=== PATIENT | male | born 1955 ===

== ENCOUNTER 2020-08-28 11:35 | Outpatient (REF) | payer MEDICAID, SELFPAY ==
--- NOTE | 2020-08-28 | XR_ITS ---
EXAMINATION: XR CHEST CLINICAL INFORMATION: COPD. Shortness of breath. Fever. COMPARISON: Chest 08/10/2019 TECHNIQUE: 2 views of the chest were obtained. FINDINGS: The lungs are well-expanded and clear of acute process. The heart size and pulmonary vascularity is normal. There is moderate spondylosis dorsal spine. No lytic process seen. IMPRESSION: Well-expanded lungs without acute process. There is moderate spondylosis lower dorsal and upper lumbar spine.
== END 2020-08-28 11:36 | disposition home or self-care (01) ==
LOC: HO.XRAY 11:35
PROVIDERS: Visit Provider Nurse Practitioner Family
DX: J44.1 Chronic obstructive pulmonary disease with (acute) exacerbation (principal); R06.02 Shortness of breath; R50.9 Fever, unspecified
CPT/HCPCS: 71046

== ENCOUNTER → 2020-08-29 11:09 | Outpatient (BNVA) | payer MEDICAID, SELFPAY | PROVIDERS: PCP Internal Medicine; Referring Provider Internal Medicine; Visit Provider Internal Medicine | DX: Z76.89 Persons encountering health services in other specified circumstances (principal) ==

== ENCOUNTER 2020-09-12 13:00 | Emergency (ER) | payer MEDICAID, SELFPAY ==
--- NOTE | 2020-09-12 14:05 | XR_ITS ---
EXAMINATION: XR CHEST CLINICAL INFORMATION: Cough COMPARISON: Chest radiographs 08/28/2020, 08/10/2019 TECHNIQUE: 2 portable AP views of the chest are obtained. FINDINGS: There is mild coarsening of the bronchiolar markings. There is no lobar or segmental airspace consolidation or definite groundglass opacity. The heart is normal in size. The vascularity is normal. The hilar and mediastinal contours and visualized bony structures are stable. XR/XR chest 1V IMPRESSION: Mild coarsening bronchiolar markings. No airspace consolidation or definite groundglass opacity.
--- NOTE | 2020-09-12 14:06 | ED.URI ---
HPI - URI/Sore Throat General Chief Complaint: Upper Respiratory Symptoms Stated Complaint: cough headache Time Seen by Provider: 09/12/20 13:23 Source: patient Mode of arrival: ambulatory Limitations: language barrier History of Present Illness HPI Narrative: 65 y/o male with history of COPD, chronic venous insufficiency, DM, depression/anxiety, HTN who presenting with cough x1 month and headache. Headache is frontal and worse with cough. His cough is productive of yellow phelgm. He has a runny nose and nasal congestion. He has low grade fevers at home. No difficutly breathing or SOB beyond his baseline. He has been using his nebulizer QHS and inhalers during the day as directed. He states he had chest pain with coughing yesterday but none today. MD elicited complaint: cough Onset (ago): week(s) (3) Consistency: intermittent Severity: moderate Description of mucous: yellow Able to tolerate fluids by mouth: Yes Exacerbating factors: exertion and deep breaths Relieving factors: nothing Associated symptoms: headache, nasal congestion and cough Treatments prior to arrival: none Related Data Previous Rx's Medication Instructions Recorded benzonatate [Tessalon Perles] 100 mg PO BID #20 cap 09/12/20 cefuroxime axetil 500 mg PO BID #14 tab 09/12/20 doxycycline monohydrate 100 mg PO BID #14 cap 09/12/20 ipratropium-albuterol 3 ml INHALATION Q6H PRN #15 ml 09/12/20 prednisone 40 mg PO DAILY #10 tab 09/12/20 Allergies Allergy/AdvReac Type Severity Reaction Status Date / Time aspirin [Aspirin] Allergy Mild SWELLING Unverified 07/25/20 16:43 Penicillins Allergy Mild SWELLING Unverified 07/25/20 16:43 penicillin G Allergy Unknown Verified 12/07/19 00:00 Review of Systems Review of Systems: Constitutional: No Fever, No Chills ENT/Mouth: No sore throat, + Rhinorrhea, No Swallowing Difficulty Eyes: No Eye Pain, No Swelling, No Redness Cardiovascular: + Chest Pain (yesterday, none today), No SOB, No Orthopnea, + Edema (chronic) Respiratory: + Cough, + Sputum, No Wheezing, No dyspnea Gastrointestinal: No Nausea, No Vomiting, No Diarrhea, No abdominal Paina Genitourinary: No Dysuria, No Urinary Frequency, No Hematuria Musculoskeletal: No joint pain, + Myalgias Skin: No Skin Lesions, No rash Neuro: No Weakness, No Numbness, No Dizziness, No Headache Psych: No Anxiety/Panic, No Depression Heme/Lymph: No Bruising, No Lymphadenopathy Endocrine: No Polyuria, No Polydipsia PMF Past Medical History Attestation statement: The following information was validated with the patient. Medical History Anxiety COPD (chronic obstructive pulmonary disease) Depression Diabetes Hypertension Venous insufficiency Surgical History Hx of hernia repair Family History Family History (Updated 08/29/20 @ 08:10 by ANDREIA Carter) Father No problems noted. Mother Heart disease CVD (cardiovascular disease) Social History Social History (Updated 08/29/20 @ 08:09 by ANDREIA Carter) Smoking Status: Never smoker Advance Directives: No Advance Directives Information Provided: No Physical Exam Vital Signs: Vital Signs: Vital Signs Temp Pulse Resp BP Pulse Ox 09/12/20 14:10 99.6 F 96 20 135/66 97 Body Mass Index 49.1 Appearance: Alert. Oriented X3. No acute distress. Eyes: Pupils equal, round and reactive to light. ENT: Pharynx normal. Neck: Normal inspection. Neck supple. CVS: Normal heart rate and rhythm. Pulses normal. Respiratory: No respiratory distress. Congested cough, breath sounds coarse throughout without wheezing or rhonchi. Abdomen: Soft and nontender. Obese . +BS x4 Skin: Skin warm and dry. Normal skin color. Normal skin turgor. No rashes. Extremities: chronic venous stasis changes, 1+ LE edema (unchanged per patient) Neuro: Oriented X 3. No motor deficit. No sensory deficit. Course Course Course Narrative: 65 y/o presenting with ongoing cough for weeks with headache, low grade fevers, nasal congestion. COVID swab sent. CXR shows no consolidation. Given his productive cough and low grade fevers will treat for acute bronchitis with abx and prednisone taper. Encouraged to use nebulizer PRN as well during the day while he is recovering. He is in no distress and VSS. He is stable for discharge. MDM - URI/Sore Throat Differential Diagnosis Differential diagnosis: Likely upper respiratory infection, sinusitis, viral infection, bronchitis and pharyngitis Medical Records Attestation: I reviewed the patient's medical records. Critical Care Time Critical Care Time Critical Care Time: No Discharge Plan Discharge Clinical Impression: Acute bronchitis Qualifiers: Bronchitis organism: unspecified organism Qualified Code(s): J20.9 - Acute bronchitis, unspecified Patient Disposition: Home, Self-Care Instructions: Acute Bronchitis (ED) Additional Instructions: You were tested for COVID-19 today. We will call you with the results in 2-4 days. Your chest x-ray did not show any evidence of pneumonia. If you develop worsening symptoms including shortness of breath, difficulty breathing or chest pain call 911 or come back to the ER for further evaluation. Follow up with your doctor tomorrow. Prescriptions: New prednisone 20 mg tablet 40 mg PO DAILY Qty: 10 RF: 0 benzonatate [Tessalon Perles] 100 mg capsule 100 mg PO BID Qty: 20 RF: 0 doxycycline monohydrate 100 mg capsule 100 mg PO BID Qty: 14 RF: 0 cefuroxime axetil 500 mg tablet 500 mg PO BID Qty: 14 RF: 0 ipratropium-albuterol 0.5 mg-3 mg(2.5 mg base)/3 mL solution for nebulization 3 ml inhalation Q6H PRN (Reason: shortness of breath or wheezing) Qty: 15 RF: 0
[2020-09-12 14:10] VITALS: BP 135/66; PULSE 96; RESP 20; TEMP 37.6; O2SAT 97; BMI 49.1
== END 2020-09-12 16:42 | disposition home or self-care (01) ==
PROVIDERS: Physician Assistant; Emergency Provider Emergency Medicine
DX: R05 Cough (principal); R51.9 Headache, unspecified; Z20.828 Contact with and (suspected) exposure to other viral communicable diseases
CPT/HCPCS: 71045; 99283; U0003

== ENCOUNTER 2020-09-20 06:47 | Outpatient (REF) | payer MEDICAID, SELFPAY | END 2020-09-20 06:48 | disposition home or self-care (01) | LOC: HO.LAB 06:47 | PROVIDERS: Visit Provider Internal Medicine | DX: Z20.828 Contact with and (suspected) exposure to other viral communicable diseases (principal) | CPT/HCPCS: C9803; U0003 ==

== ENCOUNTER 2020-10-14 13:52 | Outpatient (REF) | payer MEDICAID, SELFPAY ==
[2020-10-14 14:28] LABS: MANUAL DIFF FLAG NO
[2020-10-14 14:31] LABS: Glucose Urine UA >=1000 MG/DL (NEG); Leukocyte Esterase Urine NEG (NEG); Nitrite Urine NEG (NEG); PH 5.5 (5.0-8.0); Urine Blood NEG (NEG); Urine Ketones NEG (NEG); Urine Protein NEG (NEG-TRACE)
[2020-10-14 14:32] LABS: Appearance Urine CLEAR; Color Urine STRAW
[2020-10-14 14:33] LABS: Basophils Percent Auto 0.6 % (0-2); Eosinophils Absolute Auto 0.1 X10*3/uL (0.0-0.4); Eosinophils Percent Auto 2.3 % (0-4); Hematocrit 37.5 % (42-52); Hemoglobin 11.8 g/dl (14.0-18.0); Imm Gran Abs Auto 0.02 X10*3/uL (0.00-0.03); Imm Gran Pct Auto 0.4 % (0.0-0.4); Lymphocytes Absolute Auto 1.4 X10*3/uL (1.2-4.9); Lymphocytes Percent Auto 27.4 % (20-40); Mean Corpuscular HGB Conc 31.5 g/dl (31.0-36.0); Mean Corpuscular Hemoglobin 30.3 pg (27.0-33.0); Mean Corpuscular Volume 96.2 fL (80-98); Mean Platelet Volume 10.7 fL (9.4-12.4); Monocytes Absolute Auto 0.4 X10*3/uL (0.1-1.2); Neutrophils Absolute Auto 3.3 X10*3/uL (2.0-8.3); Neutrophils Percent Auto 62.3 % (45-73); Platelet Count 203 X10*3/uL (160-400); Red Cell Distribution Width 12.9 % (11.0-16.0); White Blood Count 5.3 X10*3/uL (4.8-10.8)
[2020-10-14 14:41] LABS: RBC Urine 0 /HPF (0); WBC Urine 0 /HPF (0-4)
[2020-10-14 15:00] LABS: Albumin Level 3.4 g/dL (3.5-5.0); Anion Gap 13 (12-20); Blood Urea Nitrogen 11 mg/dL (9-16); Calcium 9.1 mg/dL (8.4-10.2); Carbon Dioxide 27 mmol/L (22-29); Chloride 96 mmol/L (96-108); Estimated Glomerular Filt Rate 46; Magnesium 1.8 mg/dL (1.6-2.6); Phosphorus 3.2 mg/dL (2.7-4.5); Potassium 4.9 mmol/l (3.3-5.1); Sodium 131 mmol/L (135-145); Uric Acid 3.2 mg/dL (3.4-7.0)
[2020-10-14 15:01] LABS: Creatinine Urine 33.76 mg/dL; Total Protein Urine Random < 7 mg/dL (<12)
[2020-10-16 16:58] LABS: Calcium (PTHI) 9.4 mg/dL (8.6-10.3); PTHI 74 pg/mL (14-64)
== END 2020-10-14 13:53 | disposition home or self-care (01) ==
LOC: HO.LAB 13:52
PROVIDERS: Visit Provider Internal Medicine Hypertension Specialist
DX: N18.30 Chronic kidney disease, stage 3 unspecified (principal); I12.9 Hypertensive chronic kidney disease with stage 1 through stage 4 chronic kidney disease, or unspecified chronic kidney disease
CPT/HCPCS: 36415; 80051; 81001; 82040; 82310; 82565; 83735; 83970; 84100; 84156; 84520; 84550; 85025

== ENCOUNTER → 2020-11-04 11:49 | Outpatient (BNVA) | payer MEDICAID, SELFPAY | PROVIDERS: PCP Internal Medicine; Referring Provider Internal Medicine; Visit Provider Internal Medicine | DX: Z76.89 Persons encountering health services in other specified circumstances (principal) ==

== ENCOUNTER → 2020-11-19 08:34 | Outpatient (BNVA) | payer MEDICAID, SELFPAY | PROVIDERS: Visit Provider Surgery | DX: Z01.818 Encounter for other preprocedural examination (principal); E66.01 Morbid (severe) obesity due to excess calories; R06.02 Shortness of breath; F32.9 Major depressive disorder, single episode, unspecified; Z68.43 Body mass index [BMI] 50.0-59.9, adult | CPT/HCPCS: 99202 ==

== ENCOUNTER → 2020-11-29 08:52 | Outpatient (BNVA) | payer MEDICAID, SELFPAY | PROVIDERS: PCP Internal Medicine; Visit Provider Dietitian, Registered ==

== ENCOUNTER → 2020-12-05 08:12 | Outpatient (BNVA) | payer MEDICAID, SELFPAY | PROVIDERS: PCP Internal Medicine; Visit Provider Surgery ==

== ENCOUNTER → 2020-12-10 12:22 | Outpatient (BNVA) | payer MEDICAID, SELFPAY | PROVIDERS: PCP Internal Medicine; Visit Provider Dietitian, Registered ==

== ENCOUNTER 2020-12-12 08:47 | Outpatient (REF) | payer MEDICAID, SELFPAY ==
--- NOTE | 2020-12-12 08:53 | ECG_ITS ---
Test Reason : SOB Blood Pressure : / mmHG Vent. Rate : 094 BPM Atrial Rate : 094 BPM P-R Int : 152 ms QRS Dur : 078 ms QT Int : 366 ms P-R-T Axes : 054 059 050 degrees QTc Int : 457 ms Normal sinus rhythm Normal ECG When compared with ECG of 10-AUG-2019 14:50, Nonspecific T wave abnormality now evident in Inferior leads Referred By: Kari Mccauley Electronically Signed By:SOFIA SIMMONS
--- NOTE | 2020-12-12 09:18 | XR_ITS ---
EXAMINATION: XR CHEST CLINICAL INFORMATION: Shortness of breath. COMPARISON: 09/12/2020 chest radiograph. TECHNIQUE: 2 views of the chest were obtained. FINDINGS: No significant abnormality is noted involving the heart, lungs, mediastinum, bony thorax or soft tissues. XR/XR chest 2V IMPRESSION: No acute cardiopulmonary process.
[2020-12-12 09:32] LABS: MANUAL DIFF FLAG NO
[2020-12-12 09:42] LABS: Basophils Percent Auto 0.5 % (0-2); Eosinophils Absolute Auto 0.1 X10*3/uL (0.0-0.4); Eosinophils Percent Auto 2.3 % (0-4); Hemoglobin 13.4 g/dl (14.0-18.0); Imm Gran Abs Auto 0.01 X10*3/uL (0.00-0.03); Imm Gran Pct Auto 0.2 % (0.0-0.4); Lymphocytes Absolute Auto 1.5 X10*3/uL (1.2-4.9); Lymphocytes Percent Auto 26.3 % (20-40); Mean Corpuscular HGB Conc 31.9 g/dl (31.0-36.0); Mean Platelet Volume 10.4 fL (9.4-12.4); Monocytes Absolute Auto 0.3 X10*3/uL (0.1-1.2); Monocytes Percent Auto 5.4 % (2-11); Neutrophils Absolute Auto 3.8 X10*3/uL (2.0-8.3); Neutrophils Percent Auto 65.3 % (45-73); Platelet Count 270 X10*3/uL (160-400); Red Blood Count 4.47 X10*6/uL (4.60-5.80); Red Cell Distribution Width 11.9 % (11.0-16.0); White Blood Count 5.7 X10*3/uL (4.8-10.8)
[2020-12-12 10:14] LABS: Alanine Aminotransferase 36 U/L (0-40); Albumin Level 3.8 g/dL (3.5-5.0); Alkaline Phosphatase 164 U/L (39-117); Anion Gap 13 (12-20); Aspartate Amino Transferase 28 U/L (5-37); Bilirubin Total 1.1 mg/dL (0.0-1.0); Blood Urea Nitrogen 15 mg/dL (9-16); C Reactive Protein 1.47 mg/dL (< or = 0.50); Calcium 9.3 mg/dL (8.4-10.2); Carbon Dioxide 28 mmol/L (22-29); Chloride 101 mmol/L (96-108); Estimated Glomerular Filt Rate 51; Glucose Fasting 301 mg/dL (60-99); Iron 51 mcg/dL (45-160); Percent Iron Saturation 19 % (15-50); Potassium 4.4 mmol/L (3.3-5.1); Sodium 138 mmol/L (135-145); Total Iron Binding Capacity 266 mcg/dL (228-428); Total Protein 6.7 g/dL (6.5-8.0); Unsaturated Iron Binding 215 ug/dL
[2020-12-12 10:48] LABS: Vitamin B12 542 pg/mL (200-900)
[2020-12-13 13:14] LABS: Calcium (PTHI) 9.3 mg/dL (8.6-10.3); PTHI 68 pg/mL (14-64)
[2020-12-16 04:27] LABS: Zinc 76 mcg/dL (60-130)
[2020-12-16 16:12] LABS: Vitamin A 18 mcg/dL (38-98)
[2020-12-19 06:07] LABS: Vitamin B1 11 nmol/L (8-30)
== END 2020-12-12 08:48 | disposition home or self-care (01) ==
LOC: HO.LAB 08:47
PROVIDERS: Absent Provider Internal Medicine; Visit Provider Surgery
DX: Z01.818 Encounter for other preprocedural examination (principal); R06.02 Shortness of breath
CPT/HCPCS: 36415; 71046; 80053; 82607; 83540; 83970; 84425; 84590; 84630; 85025; 86140; 93005

== ENCOUNTER → 2020-12-18 08:13 | Outpatient (BNVA) | payer MEDICAID, SELFPAY | PROVIDERS: Visit Provider Dietitian, Registered ==

== ENCOUNTER → 2020-12-19 12:54 | Outpatient (BNVA) | payer MEDICAID, SELFPAY | PROVIDERS: PCP Internal Medicine; Visit Provider Dietitian, Registered ==

== ENCOUNTER → 2020-12-26 11:52 | Outpatient (BNVA) | payer MEDICAID, SELFPAY | PROVIDERS: PCP Internal Medicine; Visit Provider Internal Medicine ==

== ENCOUNTER 2020-12-31 11:17 | Outpatient (REF) | payer MEDICAID, SELFPAY ==
[2020-12-31 13:58] LABS: Vitamin D 25-OH Total 16.3 ng/mL (>30)
[2021-01-04 13:46] LABS: Vitamin A 25 mcg/dL (38-98)
== END 2020-12-31 11:18 | disposition home or self-care (01) ==
LOC: HO.LAB 11:17
PROVIDERS: PCP Internal Medicine; Visit Provider Surgery
DX: Z01.818 Encounter for other preprocedural examination (principal); E66.01 Morbid (severe) obesity due to excess calories; E55.9 Vitamin D deficiency, unspecified; E50.9 Vitamin A deficiency, unspecified; E11.9 Type 2 diabetes mellitus without complications; I10 Essential (primary) hypertension; E78.5 Hyperlipidemia, unspecified; F41.8 Other specified anxiety disorders; Z88.6 Allergy status to analgesic agent; Z88.0 Allergy status to penicillin; Z68.42 Body mass index [BMI] 45.0-49.9, adult; Z79.4 Long term (current) use of insulin; Z79.899 Other long term (current) drug therapy; Z71.3 Dietary counseling and surveillance
CPT/HCPCS: 36415; 82306; 84590; 99212

== ENCOUNTER → 2021-01-09 08:08 | Outpatient (BNVA) | payer MEDICAID, SELFPAY | PROVIDERS: PCP Internal Medicine; Visit Provider Dietitian, Registered ==

== ENCOUNTER 2021-01-13 11:09 | Outpatient (REF) | payer MEDICAID, SELFPAY ==
[2021-01-14 11:57] LABS: H Pylori Breath Test NOT DETECTED (NOT DETECTED)
== END 2021-01-13 11:10 | disposition home or self-care (01) ==
LOC: HO.LNP 11:09
PROVIDERS: PCP Internal Medicine; Visit Provider Surgery
DX: Z11.0 Encounter for screening for intestinal infectious diseases (principal)
CPT/HCPCS: 83013; 99211

== ENCOUNTER → 2021-01-21 13:08 | Outpatient (BNVA) | payer MEDICAID, SELFPAY | PROVIDERS: PCP Internal Medicine; Visit Provider Dietitian, Registered ==

== ENCOUNTER → 2021-03-31 10:29 | Outpatient (BNVA) | payer MEDICARE, MEDICAID, SELFPAY | PROVIDERS: PCP Internal Medicine; Referring Provider Internal Medicine; Visit Provider Surgery | DX: E66.01 Morbid (severe) obesity due to excess calories (principal); Z68.42 Body mass index [BMI] 45.0-49.9, adult | CPT/HCPCS: 99212 ==

== ENCOUNTER 2021-04-01 20:28 | Emergency (ER) | payer MEDICARE, MEDICAID, SELFPAY ==
[2021-04-01 21:53] VITALS: BP 137/93; PULSE 104; RESP 18; TEMP 36.9; O2SAT 97; BMI 42.6
[2021-04-01 22:30] LABS: MANUAL DIFF FLAG NO
[2021-04-01 22:31] LABS: Basophils Percent Auto 0.6 % (0-2); Eosinophils Absolute Auto 0.1 X10*3/uL (0.0-0.4); Eosinophils Percent Auto 1.8 % (0-4); Hematocrit 36.3 % (42-52); Hemoglobin 11.8 g/dl (14.0-18.0); Imm Gran Abs Auto 0.01 X10*3/uL (0.00-0.03); Imm Gran Pct Auto 0.1 % (0.0-0.4); Lymphocytes Absolute Auto 1.7 X10*3/uL (1.2-4.9); Lymphocytes Percent Auto 25.4 % (20-40); Mean Corpuscular HGB Conc 32.5 g/dl (31.0-36.0); Mean Corpuscular Hemoglobin 29.6 pg (27.0-33.0); Mean Platelet Volume 10.4 fL (9.4-12.4); Monocytes Absolute Auto 0.5 X10*3/uL (0.1-1.2); Monocytes Percent Auto 7.5 % (2-11); Neutrophils Absolute Auto 4.4 X10*3/uL (2.0-8.3); Neutrophils Percent Auto 64.6 % (45-73); Platelet Count 258 X10*3/uL (160-400); Red Blood Count 3.99 X10*6/uL (4.60-5.80); Red Cell Distribution Width 12.2 % (11.0-16.0); White Blood Count 6.8 X10*3/uL (4.8-10.8)
[2021-04-01 22:46] LABS: D Dimer 253 NG/ML
[2021-04-01 22:52] LABS: Anion Gap 12 (12-20); Blood Urea Nitrogen 15 mg/dL (9-16); Carbon Dioxide 27 mmol/L (22-29); Chloride 99 mmol/L (96-108); Creatinine Clr Calc Pharmacy 74.8; Estimated Glomerular Filt Rate 53; Glucose Random 330 mg/dL (60-115); Magnesium 1.9 mg/dL (1.6-2.6); Potassium 4.2 mmol/L (3.3-5.1); Sodium 134 mmol/L (135-145)
--- NOTE | 2021-04-01 23:56 | ED.EXTPRO ---
HPI - Extremity Problem General Chief complaint: General Medical Stated complaint: leg pain Time Seen by Provider: 04/01/21 22:03 Source: patient and family Mode of arrival: ambulatory Limitations: no limitations History of Present Illness HPI Narrative: History of diabetes with chronic leg pain and lymphedema comes here for similar pain more on the left side patient used to be on gabapentin in October PCP has been changed and has not taking few of the medication not sure which med. No fever no shortness of breath no chest pain Related Data Home Medications Medication Instructions Recorded Confirmed atorvastatin 20 mg tablet 20 mg PO BEDTIME 11/04/20 03/31/21 ferrous sulfate 325 mg (65 mg 325 mg PO DAILY 11/04/20 03/31/21 iron) tablet,delayed release furosemide 20 mg tablet 10 mg PO QAM 11/04/20 03/31/21 gabapentin 300 mg capsule 300 mg PO DAILY 11/04/20 03/31/21 insulin glargine 100 unit/mL (3 75 unit SUBCUT QPM ml 11/04/20 03/31/21 mL) subcutaneous pen lisinopril 10 mg tablet 10 mg PO DAILY 11/04/20 03/31/21 loratadine 10 mg tablet 10 mg PO DAILY 11/04/20 03/31/21 repaglinide 2 mg tablet 2 mg PO TID 11/04/20 03/31/21 trazodone 100 mg tablet 100 mg PO DAILY 11/04/20 03/31/21 Previous Rx's Medication Instructions Recorded ipratropium-albuterol 3 ml INHALATION Q6H PRN #15 ml 09/12/20 dulaglutide 0.75 mg/0.5 mL 0.75 mg SUBCUT QWEEK 28 Days #2 ml 11/13/20 subcutaneous pen injector cholecalciferol (vitamin D3) 1,250 1,250 mcg PO QWEEK #4 cap 12/31/20 mcg (50,000 unit) capsule vitamin A palmitate 10,000 unit 20,000 unit PO DAILY 30 Days #60 01/06/21 tablet tab gabapentin 300 mg PO BEDTIME #90 cap 04/02/21 tramadol 50 mg PO Q6H PRN #20 tab 04/02/21 Allergies Allergy/AdvReac Type Severity Reaction Status Date / Time aspirin [Aspirin] Allergy Mild SWELLING Verified 03/31/21 11:33 Penicillins Allergy Mild SWELLING Verified 03/31/21 11:33 penicillin G Allergy Unknown Swelling Verified 03/31/21 11:33 Review of Systems Review of Systems: Constitutional : No Weight loss, No Fever, No Chills ENT/Mouth : No sore throat, No Rhinorrhea Eyes: No Eye Pain, No Swelling Cardiovascular : No Chest Pain, no palpitations Respiratory : No Cough, No Sputum, no shortness of breath Gastrointestinal : no Nausea, No Vomiting, No Diarrhea, No abdominal Pain, no black stools Genitourinary : No Dysuria, No Urinary Frequency Musculoskeletal : No joint pain, No Myalgias, No Joint Swelling Skin : No Skin Lesions, No rash Neuro : No Weakness, No Numbness, No Dizziness, No Headache Psych : No Anxiety/Panic, No Depression Heme/Lymph: No Bruising, No Lymphadenopathy Endocrine : No Polyuria, No Polydipsia All other systems reviewed and are negative [facility] Past Medical History Medical History Anxiety Arthritis Asthma COPD (chronic obstructive pulmonary disease) Depression HLD (hyperlipidemia) Hypertension T2DM (type 2 diabetes mellitus) Venous insufficiency Vitamin D deficiency Surgical History H/O colonoscopy with polypectomy History of umbilical hernia repair Family History Family History Father CVD (cardiovascular disease) Heart disease Mother Heart disease CVD (cardiovascular disease) Brother Cancer Brother Cancer Brother Heart attack Sister CVD (cardiovascular disease) Diabetes mellitus Hypertension Arthritis Social History Social History Alcohol intake: current Alcohol intake frequency: holidays/special occasions only Smoking Status: Former smoker Advance Directives: No Physical Exam Vital Signs: Vital Signs: Last Vital Signs Temp 98.4 F 04/01/21 21:53 Pulse 85 04/02/21 00:14 Resp 19 04/02/21 00:14 BP 126/71 04/02/21 00:14 Pulse Ox 96 04/02/21 00:14 Body Mass Index 42.6 Appearance: Alert. Oriented X3. No acute distress. Eyes: PERRLA, No Nystagmus ENT: Pharynx normal. Oral Mucosa moist Neck: Normal inspection. Neck supple. CVS: Normal heart rate and rhythm. Pulses normal. Respiratory: No respiratory distress. Equal air entry bilateral, no wheezing/rales/rhonchi Abdomen: Soft and nontender. Bowel sounds are present, no mass palpable, no CVA tenderness Skin: Skin warm and dry. Normal skin color. Normal skin turgor. Extremities: Chronic lower extremity edema. No calf tenderness vascular intact, Neuro: Oriented X 3. No motor deficit. Decreased sensation to light touch and pinprick in lower extremity .No cerebellar signs , cranial nerves II-XII intact MDM - Extremity (Nontraumatic) MDM Narrative Medical decision making narrative: Patient diabetic peripheral neuropathy not on gabapentin restart patient on gabapentin advised to follow with PCP Lab Data Attestation: I reviewed the patient's lab results. Result diagrams: 04/01/21 22:26 04/01/21 22: Labs: Lab Results 04/01/21 04/01/21 04/01/21 Range/Units 22:25 22:26 22:26 WBC 6.8 (4.8-10.8) X10*3/uL RBC 3.99 L (4.60-5.80) X10*6/uL Hgb 11.8 L (14.0-18.0) g/dl Hct 36.3 L (42-52) % MCV 91.0 (80-98) fL MCH 29.6 (27.0-33.0) pg MCHC 32.5 (31.0-36.0) g/dl RDW 12.2 (11.0-16.0) % Plt Count 258 (160-400) X10*3/uL MPV 10.4 (9.4-12.4) fL Immature Gran % (Auto) 0.1 (0.0-0.4) % Neut % (Auto) 64.6 (45-73) % Lymph % (Auto) 25.4 (20-40) % [place] % (Auto) 7.5 (2-11) % Eos % (Auto) 1.8 (0-4) % Baso % (Auto) 0.6 (0-2) % Lymph # (Auto) 1.7 (1.2-4.9) X10*3/uL [place] # (Auto) 0.5 (0.1-1.2) X10*3/uL Eos # (Auto) 0.1 (0.0-0.4) X10*3/uL Baso # (Auto) 0.0 (0.0-0.2) X10*3/uL Abs Immat Gran (auto) 0.01 (0.00-0.03) X10*3/uL Absolute Neuts (auto) 4.4 (2.0-8.3) X10*3/uL Absolute Nucleated RBC 0.000 (0.0-0.012) X10*3/uL Nucleated RBC % (auto) 0.0 (0.0-0.2) /100WBC D-Dimer 253 NG/ML Sodium 134 L (135-145) mmol/L Potassium 4.2 (3.3-5.1) mmol/L Chloride 99 (96-108) mmol/L Carbon Dioxide 27 (22-29) mmol/L Anion Gap 12 (12-20) BUN 15 (9-16) mg/dL Creatinine 1.36 (0.5-1.4) mg/dL Estim Creat Clear Calc 74.8 Estimated GFR 53 Random Glucose 330 H (60-115) mg/dL Calcium 9.0 (8.4-10.2) mg/dL Magnesium 1.9 (1.6-2.6) mg/dL Discharge Plan Discharge Clinical Impression: Diabetic neuropathy Qualifiers: Diabetes mellitus type: type 2 Diabetes mellitus complication detail: diabetic polyneuropathy Qualified Code(s): E11.42 - Type 2 diabetes mellitus with diabetic polyneuropathy Patient Disposition: Home, Self-Care Instructions: Diabetic Peripheral Neuropathy (ED) Additional Instructions: Take her gabapentin as prescribed. Follow-up with your PCP Prescriptions: New gabapentin 300 mg capsule 300 mg PO BEDTIME Qty: 90 RF: 0 tramadol 50 mg tablet 50 mg PO Q6H PRN (Reason: pain) Qty: 20 RF: 0 No Action cholecalciferol (vitamin D3) 1,250 mcg (50,000 unit) capsule 1,250 mcg PO QWEEK Qty: 4 RF: 1 vitamin A palmitate 10,000 unit tablet 20,000 unit PO DAILY 30 Days Qty: 60 RF: 1 ipratropium-albuterol 0.5 mg-3 mg(2.5 mg base)/3 mL solution for nebulization 3 ml inhalation Q6H PRN (Reason: shortness of breath or wheezing) Qty: 15 RF: 0 Lantus Solostar U-100 Insulin 100 unit/mL (3 mL) insulin pen 75 unit subcut QPM RF: 0 furosemide 20 mg tablet 10 mg PO QAM RF: 0 ferrous sulfate 325 mg (65 mg iron) tablet,delayed release (DR/EC) 325 mg PO DAILY RF: 0 atorvastatin 20 mg tablet 20 mg PO BEDTIME RF: 0 lisinopril 10 mg tablet 10 mg PO DAILY RF: 0 gabapentin 300 mg capsule 300 mg PO DAILY RF: 0 repaglinide 2 mg tablet 2 mg PO TID RF: 0 trazodone 100 mg tablet 100 mg PO DAILY RF: 0 loratadine [Allergy Relief (loratadine)] 10 mg tablet 10 mg PO DAILY RF: 0 Trulicity 0.75 mg/0.5 mL pen injector 0.75 mg subcut QWEEK 28 Days Qty: 2 RF: 11 Interventions: ED Discharge Assessment Last Done: 04/02/21 00:18 Discharge Date/Time: 04/02/21 00:19
[2021-04-02 00:14] VITALS: BP 126/71; PULSE 85; RESP 19; O2SAT 96
[2021-04-02] MEDS: Gabapentin 300 MG CAPSULE PO (00:15)
== END 2021-04-02 00:19 | disposition home or self-care (01) ==
PROVIDERS: Emergency Provider Internal Medicine
DX: E11.42 Type 2 diabetes mellitus with diabetic polyneuropathy (principal); G89.29 Other chronic pain; M79.605 Pain in left leg; I10 Essential (primary) hypertension; E78.5 Hyperlipidemia, unspecified; J44.9 Chronic obstructive pulmonary disease, unspecified; Z79.02 Long term (current) use of antithrombotics/antiplatelets; Z79.4 Long term (current) use of insulin; Z79.899 Other long term (current) drug therapy; Z87.891 Personal history of nicotine dependence
CPT/HCPCS: 36415; 80048; 83735; 85025; 85379; 99283; 99284

== ENCOUNTER 2021-04-08 08:13 | Outpatient (REF) | payer MEDICARE, MEDICAID, SELFPAY ==
--- NOTE | ~2021-04-08 | XR_ITS ---
EXAMINATION: XR HIP, LEFT CLINICAL INFORMATION: Left hip pain. COMPARISON: None TECHNIQUE: Two views of the left hip. FINDINGS: There is no evidence of acute fracture or dislocation of the left hip. No destructive bony lesion is appreciated. There is some spurring at site of insertion of the psoas muscle on the lesser trochanter. Hip joint space is maintained with mild collar spurring. XR/XR hip LT min 2V IMPRESSION: Mild degenerative change of the left hip joint. Calcific tendinitis lesser trochanter.
== END 2021-04-08 08:14 | disposition home or self-care (01) ==
LOC: HO.XRAY 08:13
PROVIDERS: Absent Provider Internal Medicine; PCP Internal Medicine; Visit Provider Dietitian, Registered
DX: E66.01 Morbid (severe) obesity due to excess calories (principal); Z68.41 Body mass index [BMI] 40.0-44.9, adult; E11.9 Type 2 diabetes mellitus without complications; Z71.3 Dietary counseling and surveillance; M25.552 Pain in left hip; M79.605 Pain in left leg; I73.9 Peripheral vascular disease, unspecified
CPT/HCPCS: 73502; 97803

== ENCOUNTER 2021-04-23 12:04 | Outpatient (REF) | payer MEDICARE, MEDICAID, SELFPAY ==
[2021-04-23 14:37] LABS: Estimated Average Glucose 249 mg/dL; Hemoglobin A1c % 10.3 %
[2021-04-23 14:47] LABS: Alanine Aminotransferase 32 U/L (0-40); Albumin Level 3.7 g/dL (3.5-5.0); Alkaline Phosphatase 176 U/L (39-117); Anion Gap 11 (12-20); Aspartate Amino Transferase 26 U/L (5-37); Bilirubin Total 0.7 mg/dL (0.0-1.0); Blood Urea Nitrogen 12 mg/dL (9-16); Calcium 9.2 mg/dL (8.4-10.2); Carbon Dioxide 28 mmol/L (22-29); Chloride 101 mmol/L (96-108); Cholesterol 138 mg/dL; Estimated Glomerular Filt Rate 52; Glucose Random 284 mg/dL (60-115); HDL Cholesterol 37 mg/dL; LDL Cholesterol Calculated 86 mg/dl; Potassium 4.4 mmol/L (3.3-5.1); Sodium 136 mmol/L (135-145); Total Protein 6.8 g/dL (6.5-8.0); Triglycerides 79 mg/dL
[2021-04-23 15:02] LABS: Free T4 (Free Thyroxine) 0.96 ng/dL (0.71-1.85); Thyroid Stimulating Hormone 0.79 uIU/mL (0.32-4.0); Vitamin D 25-OH Total 33.9 ng/mL (>30); Vitamin D 25-OH Total 35.1 ng/mL (>30)
[2021-04-23 16:07] LABS: Creatinine Urine 90.87 mg/dL; Microalbum/Creatinine Ratio Ur 16.5 ug/mg cr
[2021-04-24 07:21] LABS: LDL Cholesterol Direct 88 mg/dL (<100)
[2021-04-27 11:27] LABS: Vitamin A 29 mcg/dL (38-98)
== END 2021-04-23 12:05 | disposition home or self-care (01) ==
LOC: HO.LAB 12:04
PROVIDERS: Surgery; PCP Internal Medicine; Visit Provider Internal Medicine
DX: Z01.818 Encounter for other preprocedural examination (principal); E11.65 Type 2 diabetes mellitus with hyperglycemia; E55.9 Vitamin D deficiency, unspecified; E78.5 Hyperlipidemia, unspecified; I10 Essential (primary) hypertension; E50.9 Vitamin A deficiency, unspecified; Z79.4 Long term (current) use of insulin
CPT/HCPCS: 36415; 80053; 80061; 82043; 82306; 82947; 83036; 83721; 84439; 84443; 84590; 99212

== ENCOUNTER → 2021-05-02 10:00 | Outpatient (BNVA) | payer MEDICARE, MEDICAID, SELFPAY | PROVIDERS: PCP Internal Medicine; Referring Provider Internal Medicine; Visit Provider Surgery | DX: E66.01 Morbid (severe) obesity due to excess calories (principal); Z68.41 Body mass index [BMI] 40.0-44.9, adult | CPT/HCPCS: 99212 ==

== ENCOUNTER 2021-05-14 07:45 | Outpatient (REF) | payer MEDICARE, MEDICAID, SELFPAY ==
--- NOTE | ~2021-05-14 | XR_ITS ---
EXAMINATION: XR HIP, LEFT CLINICAL INFORMATION: Left hip pain. COMPARISON: 04/08/2021. TECHNIQUE: AP pelvis and 2 views of the left hip. FINDINGS: There is no evidence of acute fracture or diastasis of the pelvis. No evidence of widening or fusion of the sacroiliac joints. Hip joint spaces appear maintained bilaterally. Degenerative disc disease is seen at the L4-L5 and L5-S1 levels. There is no evidence of acute fracture or dislocation of the left hip. Left hip joint space is seen to be maintained. Mild marginal spurring about the hip joint is noted. There is some calcification about the lesser trochanters bilaterally at site of insertion of the psoas muscle. There are some changes of enthesopathy seen involving the iliac bones and ischium bilaterally. No suspicious bony lesions or femoral head collapse identified. XR/XR hip LT w PEL1V IMPRESSION: Mild degenerative change of the left hip with mild spurring and maintenance of the joint space. Calcification about the lesser trochanters bilaterally consistent with psoas tendinitis. Lower lumbar spine degenerative disc disease.
== END 2021-05-14 07:46 | disposition home or self-care (01) ==
LOC: HO.HOSX 07:45
PROVIDERS: Visit Provider Orthopaedic Surgery
DX: M79.18 Myalgia, other site (principal); M25.552 Pain in left hip; J45.909 Unspecified asthma, uncomplicated; E78.5 Hyperlipidemia, unspecified; I10 Essential (primary) hypertension; E11.9 Type 2 diabetes mellitus without complications; E55.9 Vitamin D deficiency, unspecified; E66.9 Obesity, unspecified; F41.8 Other specified anxiety disorders; Z68.41 Body mass index [BMI] 40.0-44.9, adult; Z87.891 Personal history of nicotine dependence; Z88.6 Allergy status to analgesic agent; Z88.0 Allergy status to penicillin
CPT/HCPCS: 73502; 99202

== ENCOUNTER → 2021-05-15 11:15 | Outpatient (BNVA) | payer MEDICARE, MEDICAID, SELFPAY | PROVIDERS: PCP Internal Medicine; Visit Provider Surgery Vascular Surgery | DX: I83.12 Varicose veins of left lower extremity with inflammation (principal) | CPT/HCPCS: 99212 ==

== ENCOUNTER → 2021-06-16 10:01 | Outpatient (BNVA) | payer MEDICARE, MEDICAID, SELFPAY | PROVIDERS: PCP Internal Medicine; Referring Provider Internal Medicine; Visit Provider Surgery | DX: E66.01 Morbid (severe) obesity due to excess calories (principal); Z68.41 Body mass index [BMI] 40.0-44.9, adult | CPT/HCPCS: 99212 ==

== ENCOUNTER 2021-06-17 10:17 | Outpatient (REF) | payer MEDICARE, MEDICAID, SELFPAY ==
--- NOTE | ~2021-06-17 | US_ITS ---
EXAMINATION: BILATERAL LOWER EXTREMITY VENOUS ULTRASOUND (Reflux Exam) CLINICAL INDICATION: This is a 66-year-old male with varicose veins of the left lower extremity. Venous insufficiency. COMPARISON: Comparison is made to a previous study dated 07/20/2019 which demonstrated bilateral saphenofemoral junction reflux. TECHNIQUE: Color flow triplex imaging and compression Doppler was performed to evaluate both the deep and the superficial systems bilaterally. To evaluate the superficial system, the examination was performed in the upright position. Color-flow Doppler ultrasound and compression ultrasound were utilized. In addition, maneuvers were utilized to demonstrate reflux. FINDINGS: 1. DEEP VENOUS ULTRASOUND OF THE RIGHT LOWER EXTREMITY: Common Femoral Vein: Compressible, normal respiratory variation and augmented flow. Femoral vein: Compressible, normal color flow and augmentation. Popliteal Vein: Compressible, normal augmentation. Deep Reflux: There is no evidence of reflux in the deep system in either the common femoral vein or the popliteal vein. . There is no evidence of a Perez's cyst. 2. SUPERFICIAL ULTRASOUND WITH DOPPLER OF RIGHT LOWER EXTREMITY GREAT SAPHENOUS VEIN: Saphenofemoral junction: 0.5 cm Mid thigh: 0.4 cm Above knee: 0.3 cm Below knee: 0.3 cm Mid calf: 0.3 cm Ankle: 0.2 cm GSV REFLUX: No evidence of reflux. DUPLICATED GREAT SAPHENOUS VEIN: None SMALL SAPHENOUS VEIN: Upper: 0.2 cm Lower: 0.3 cm SSV REFLUX: No evidence of reflux. VEIN OF GIACOMINI: None Imaged. PERFORATORS: There is a mid calf [employer] measuring 0.3 cm without evidence of reflux. There is another mid calf [employer] measuring 0.3 cm with 1060 ms of reflux. VARICOSITIES: There are 0.4 cm proximal and mid thigh varicose veins. The mid thigh varicose vein has a reflux time of 1040 ms. There is a mid calf 0.3 cm varicose vein with the reflux time of 1480 ms. 3. DEEP VENOUS ULTRASOUND OF THE LEFT LOWER EXTREMITY: Common Femoral Vein: Compressible, normal respiratory variation and augmented flow. Femoral vein: Compressible, normal color flow and augmentation. Popliteal Vein: Compressible, normal augmentation. Deep Reflux: There is no evidence of reflux in the deep system in either the common femoral vein or the popliteal vein. There is no evidence of a Perez's cyst. 4. SUPERFICIAL ULTRASOUND WITH DOPPLER OF LEFT LOWER EXTREMITY GREAT SAPHENOUS VEIN: Saphenofemoral junction: 0.8 cm. There is no reflux at this level. Mid thigh: Occluded. Above knee: Occluded. Below knee: 0.4 cm. There is greater than 3 seconds of reflux at this level. Mid calf: 0.4 cm. The reflux time is 676 ms. Ankle: 0.3 cm. The reflux time is 604 ms. GSV REFLUX: No evidence of reflux at the saphenofemoral junction. There is reflux distally.. DUPLICATED GREAT SAPHENOUS VEIN: There is a 0.5 cm duplicated lateral great saphenous vein without reflux SMALL SAPHENOUS VEIN: Upper: 0.4 cm. There is no reflux at the junction. Lower: 0.2 cm. There is reflux of greater than 3 seconds at the distal calf. SSV REFLUX: There is distal calf reflux as noted. VEIN OF GIACOMINI: None Imaged. PERFORATORS: There are multiple perforators present. There is a 0.8 cm [employer] at the knee with greater than 3 seconds of reflux VARICOSITIES: There are 0.3 cm varicose veins in the calf with greater than 3 seconds of reflux. There is a 0.3 cm varicose vein off the distal small saphenous vein with greater than 3 seconds of reflux. US/US venous duplex LE BI IMPRESSION: 1. There is a patent right great saphenous vein and right small saphenous vein, respectively, without evidence of reflux. 2. There are right-sided varicose veins with reflux as noted. 3. The proximal left great saphenous vein is patent. There is no reflux at the junction. The mid and distal thigh left great saphenous vein is occluded. The distal left rate saphenous vein is patent with greater than 3 seconds of reflux. 4. There is a patent left small saphenous vein without reflux at the junction. 5. There are varicose veins in the calf with greater than 3 seconds of reflux.
== END 2021-06-17 10:18 | disposition home or self-care (01) ==
LOC: HO.US 10:17
PROVIDERS: Visit Provider Surgery Vascular Surgery
DX: I83.893 Varicose veins of bilateral lower extremities with other complications (principal); I83.12 Varicose veins of left lower extremity with inflammation
CPT/HCPCS: 93970

== ENCOUNTER → 2021-06-23 09:00 | Outpatient (BNVA) | payer MEDICARE, MEDICAID, SELFPAY | PROVIDERS: PCP Internal Medicine; Referring Provider Internal Medicine; Visit Provider Physician Assistant ==

== ENCOUNTER → 2021-06-24 10:04 | Outpatient (BNVA) | payer MEDICARE, MEDICAID, SELFPAY | PROVIDERS: PCP Internal Medicine; Referring Provider Internal Medicine; Visit Provider Surgery Vascular Surgery | DX: I83.12 Varicose veins of left lower extremity with inflammation (principal) | CPT/HCPCS: 99212 ==

== ENCOUNTER 2021-06-25 06:22 | Inpatient (IN) | payer MEDICARE, MEDICAID, SELFPAY ==
--- NOTE | 2021-06-16 11:06 | ECG_ITS ---
Test Reason : SOB Blood Pressure : / mmHG Vent. Rate : 088 BPM Atrial Rate : 088 BPM P-R Int : 154 ms QRS Dur : 076 ms QT Int : 390 ms P-R-T Axes : 060 064 056 degrees QTc Int : 471 ms Normal sinus rhythm Possible Left atrial enlargement Borderline ECG When compared with ECG of 12-DEC-2020 09:14, No significant change was found Referred By: Kari Mccauley Electronically Signed By:MATT KHOURY MD
[2021-06-16 11:33] LABS: MANUAL DIFF FLAG NO
[2021-06-16 11:41] LABS: Glucose Urine UA >=1000 MG/DL (NEG); Leukocyte Esterase Urine NEG (NEG); Nitrite Urine NEG (NEG); Urine Blood NEG (NEG); Urine Ketones NEG (NEG); Urine Protein NEG (NEG-TRACE)
[2021-06-16 11:48] LABS: Basophils Percent Auto 0.3 % (0-2); Eosinophils Absolute Auto 0.1 X10*3/uL (0.0-0.4); Eosinophils Percent Auto 1.3 % (0-4); Hematocrit 38.7 % (42-52); Hemoglobin 12.3 g/dl (14.0-18.0); Imm Gran Abs Auto 0.02 X10*3/uL (0.00-0.03); Imm Gran Pct Auto 0.3 % (0.0-0.4); Lymphocytes Absolute Auto 1.7 X10*3/uL (1.2-4.9); Mean Corpuscular HGB Conc 31.8 g/dl (31.0-36.0); Mean Corpuscular Hemoglobin 29.4 pg (27.0-33.0); Mean Corpuscular Volume 92.6 fL (80-98); Mean Platelet Volume 10.7 fL (9.4-12.4); Monocytes Absolute Auto 0.4 X10*3/uL (0.1-1.2); Monocytes Percent Auto 5.7 % (2-11); Neutrophils Absolute Auto 3.9 X10*3/uL (2.0-8.3); Neutrophils Percent Auto 64.4 % (45-73); Platelet Count 276 X10*3/uL (160-400); Red Blood Count 4.18 X10*6/uL (4.60-5.80); Red Cell Distribution Width 12.4 % (11.0-16.0); White Blood Count 6.1 X10*3/uL (4.8-10.8)
[2021-06-16 11:51] LABS: INTERNATIONAL NORM RATIO 1.1 (0.9-1.1); Prothrombin Time 12.4 SEC (9.9-13.0)
[2021-06-16 11:54] LABS: Partial Thromboplastin Time 32.1 SEC (24.1-38.0)
[2021-06-16 11:56] LABS: Appearance Urine CLEAR; Color Urine YELLOW
[2021-06-16 11:58] LABS: RBC Urine 0 /HPF (0); WBC Urine 0 /HPF (0-4)
[2021-06-16 12:22] LABS: Albumin Level 3.6 g/dL (3.5-5.0); Anion Gap 13 (12-20); Blood Urea Nitrogen 15 mg/dL (9-16); Calcium 9.2 mg/dL (8.4-10.2); Carbon Dioxide 26 mmol/L (22-29); Chloride 102 mmol/L (96-108); Estimated Glomerular Filt Rate 45; Glucose Random 365 mg/dL (60-115); Potassium 4.9 mmol/L (3.3-5.1); Sodium 136 mmol/L (135-145)
--- NOTE | 2021-06-17 09:10 | P.CONAN_ITS ---
Documented by User: Linette Benites NP 06/17/21 12:59 HPI - Anesthesia Eval Consult details Narrative: 66yo M for Gastrectomy Sleeve, EGD, Possible Diaphragmatic Hernia, Possible Ventral Hernia, Poss Open PMFSH Active Problems Active Problems: All Active Problems (Updated 05/15/21 @ 11:47 by Eder Beckham MD) Diabetes (Acute) Pre-op examination (Acute) Shortness of breath (Acute) Morbid (severe) obesity due to excess calories (Acute) BMI 50.0-59.9, adult (Acute) Vitamin A deficiency (Acute) Adult BMI 45.0-49.9 kg/sq m (Acute) BMI 40.0-44.9, adult (Acute) Myofascial pain on left side (Acute) Varicose veins of left lower extremity with inflammation (Acute) Vitamin D deficiency (Acute) HLD (hyperlipidemia) (Acute) T2DM (type 2 diabetes mellitus) (Acute) Anxiety (Acute) Depression (Acute) Venous insufficiency (Acute) Hypertension (Acute) COPD (chronic obstructive pulmonary disease) (Acute) Past Medical History Medical History Anxiety Arthritis Asthma COPD (chronic obstructive pulmonary disease) COVID-19 vaccine series completed Depression HLD (hyperlipidemia) Hypertension T2DM (type 2 diabetes mellitus) Venous insufficiency Vitamin D deficiency Family History Family History Father CVD (cardiovascular disease) Heart disease Mother Heart disease CVD (cardiovascular disease) Brother Cancer Brother Cancer Brother Heart attack Sister CVD (cardiovascular disease) Diabetes mellitus Hypertension Arthritis Family history of problems with anesthesia: No Surgical History Surgical History H/O colonoscopy with polypectomy History of esophagogastroduodenoscopy (EGD) History of umbilical hernia repair History of Problems with Anesthesia: No Social History Social History Are you a primary foster care worker to a significant other at home: No Do you presently have visiting nurse or other home services: Yes ([employer]-daughter) Alcohol intake: current Alcohol intake frequency: holidays/special occasions only Patient Tobacco Use Status: Former Tobacco user Quit Date: age 19 Tobacco use type: Cigarette Use of substances other than those prescribed or required for medical reasons: No Have you been hit, kicked, punched, or otherwise hurt by someone within the past year? If so, by whom?: No Are you DNR?: No Advance Directives Information Provided: No Advance Directives on File: No Recently lost weight without trying: No Eating poorly because of decreased appetite: No Nutrition Risks: No Nutritional Risk Poor oral hygiene: No (no upper teeth, lower teeth in front only (has partials, does not wear)) Narrative Narrative: No recent illness No CP/SOB with walking for weightloss Meds Allergies Allergy/AdvReac Type Severity Reaction Status Date / Time aspirin [Aspirin] Allergy Mild SWELLING Verified 06/25/21 06:40 Penicillins Allergy Mild SWELLING Verified 06/25/21 06:40 Home Medications Medication Instructions Recorded Confirmed Last Taken Type atorvastatin 20 mg tablet 20 mg PO BEDTIME 11/04/20 06/16/21 Unknown History ferrous sulfate 325 mg (65 mg 325 mg PO DAILY 11/04/20 06/16/21 Unknown History iron) tablet,delayed release furosemide 20 mg tablet 10 mg PO QAM 11/04/20 06/16/21 Unknown History insulin glargine 100 unit/mL (3 75 unit SUBCUT QPM ml 11/04/20 06/16/21 Unknown History mL) subcutaneous pen (Lantus Solostar U-100 Insulin) lisinopril 10 mg tablet 10 mg PO DAILY 11/04/20 06/16/21 Unknown History loratadine 10 mg tablet (Allergy 10 mg PO DAILY 11/04/20 06/16/21 Unknown History Relief (loratadine)) repaglinide 2 mg tablet 2 mg PO TID 11/04/20 06/16/21 Unknown History trazodone 100 mg tablet 100 mg PO DAILY 11/04/20 06/16/21 Unknown History ascorbic acid (vitamin C) 250 mg 250 mg PO QAM 04/23/21 06/16/21 Unknown History tablet fluticasone 100 mcg-salmeterol 50 1 ea INHALATION BID 04/23/21 06/16/21 Unknown History mcg/dose blistr powdr for inhalation fluticasone propionate 50 1 spray INTRANASAL DAILY 04/23/21 06/16/21 Unknown History mcg/actuation nasal spray,suspension pen needle, diabetic 32 gauge x #50 ea 04/23/21 05/02/21 Unknown History tiotropium bromide 18 mcg capsule 1 cap INHALATION DAILY 04/23/21 06/16/21 Unknown History with inhalation device Exam Exam Date and Time: June 17, [id number] Pertinent Lab Results Pertinent Lab Results: Laboratory Tests 06/16/21 06/16/21 06/16/21 10:55 10:55 10:55 WBC 6.1 RBC 4.18 L Hgb 12.3 L Hct 38.7 L MCV 92.6 MCH 29.4 MCHC 31.8 RDW 12.4 Plt Count 276 MPV 10.7 Immature Gran % (Auto) 0.3 Neut % (Auto) 64.4 Lymph % (Auto) 28.0 [place] % (Auto) 5.7 Eos % (Auto) 1.3 Baso % (Auto) 0.3 Lymph # (Auto) 1.7 [place] # (Auto) 0.4 Eos # (Auto) 0.1 Baso # (Auto) 0.0 Abs Immat Gran (auto) 0.02 Absolute Neuts (auto) 3.9 Absolute Nucleated RBC 0.000 Nucleated RBC % (auto) 0.0 PT 12.4 INR 1.1 APTT 32.1 Sodium Potassium Chloride Carbon Dioxide Anion Gap BUN Creatinine Estim Creat Clear Calc Estimated GFR Random Glucose Calcium Albumin Urine Color YELLOW Urine Appearance CLEAR Urine pH 6.0 Ur Specific Glady 1.020 Urine Protein NEG Urine Glucose (UA) >=1000 H Urine Ketones NEG Urine Blood NEG Urine Nitrite NEG Ur Leukocyte Esterase NEG Urine RBC 0 Urine WBC 0 Ur Squamous Epith Cells NONE Urine Bacteria NONE Blood Type Antibody Screen 06/16/21 06/16/21 10:55 10:55 WBC RBC Hgb Hct MCV MCH MCHC RDW Plt Count MPV Immature Gran % (Auto) Neut % (Auto) Lymph % (Auto) [place] % (Auto) Eos % (Auto) Baso % (Auto) Lymph # (Auto) [place] # (Auto) Eos # (Auto) Baso # (Auto) Abs Immat Gran (auto) Absolute Neuts (auto) Absolute Nucleated RBC Nucleated RBC % (auto) PT INR APTT Sodium 136 Potassium 4.9 Chloride 102 Carbon Dioxide 26 Anion Gap 13 BUN 15 Creatinine 1.56 H Estim Creat Clear Calc TNP Estimated GFR 45 Random Glucose 365 H* Calcium 9.2 Albumin 3.6 Urine Color Urine Appearance Urine pH Ur Specific Glady Urine Protein Urine Glucose (UA) Urine Ketones Urine Blood Urine Nitrite Ur Leukocyte Esterase Urine RBC Urine WBC Ur Squamous Epith Cells Urine Bacteria Blood Type A Negative Antibody Screen NEGATIVE Narrative Narrative: EKG 06/2021 Vent. Rate : 088 BPM ? ? Atrial Rate : 088 BPM ?? P-R Int : 154 ms? QRS Dur : 076 ms ? ? QT Int : 390 ms ? ? ? P-R-T Axes : 060 064 056 degrees ?? QTc Int : 471 ms ? Normal sinus rhythm Possible Left atrial enlargement Borderline ECG When compared with ECG of 12-DEC-2020 09:14, No significant change was found Airway Mallampati Class: I TM Dist: >3cm Neck ROM: Full Loose/Missing/Broken Teeth: Yes (Remaining lower teeth loose. No upper teeth, many lower molars missing.) Heart: RRR Lungs: CTAB Assessment and Plan Assessment Anesthesia Assessment: Anesthesia Plan Discussed and PAT Visit Final Anesthetic Review Family History of Problems with Anesthesia: No History of Problems with Anesthesia: No Documented by User: Debra Burnett MD 06/25/21 07:15 [facility] Past Medical History Medical History Anxiety Arthritis Asthma COPD (chronic obstructive pulmonary disease) COVID-19 vaccine series completed Depression HLD (hyperlipidemia) Hypertension T2DM (type 2 diabetes mellitus) Venous insufficiency Vitamin D deficiency Family History Family History Father CVD (cardiovascular disease) Heart disease Mother Heart disease CVD (cardiovascular disease) Brother Cancer Brother Cancer Brother Heart attack Sister CVD (cardiovascular disease) Diabetes mellitus Hypertension Arthritis Surgical History Surgical History H/O colonoscopy with polypectomy History of esophagogastroduodenoscopy (EGD) History of umbilical hernia repair Social History Social History Are you a primary foster care worker to a significant other at home: No Do you presently have visiting nurse or other home services: Yes ([employer]-daughter) Alcohol intake: current Alcohol intake frequency: holidays/special occasions only Patient Tobacco Use Status: Former Tobacco user Quit Date: age 19 Tobacco use type: Cigarette Use of substances other than those prescribed or required for medical reasons: No Have you been hit, kicked, punched, or otherwise hurt by someone within the past year? If so, by whom?: No Are you DNR?: No Advance Directives Information Provided: No Advance Directives on File: No Recently lost weight without trying: No Eating poorly because of decreased appetite: No Nutrition Risks: No Nutritional Risk Poor oral hygiene: No (no upper teeth, lower teeth in front only (has partials, does not wear)) Meds Allergies Allergy/AdvReac Type Severity Reaction Status Date / Time aspirin [Aspirin] Allergy Mild SWELLING Verified 06/25/21 06:40 Penicillins Allergy Mild SWELLING Verified 06/25/21 06:40 Home Medications Medication Instructions Recorded Confirmed Last Taken Type atorvastatin 20 mg tablet 20 mg PO BEDTIME 11/04/20 06/16/21 Unknown History ferrous sulfate 325 mg (65 mg 325 mg PO DAILY 11/04/20 06/16/21 Unknown History iron) tablet,delayed release furosemide 20 mg tablet 10 mg PO QAM 11/04/20 06/16/21 Unknown History insulin glargine 100 unit/mL (3 75 unit SUBCUT QPM ml 11/04/20 06/16/21 Unknown History mL) subcutaneous pen (Lantus Solostar U-100 Insulin) lisinopril 10 mg tablet 10 mg PO DAILY 11/04/20 06/16/21 Unknown History loratadine 10 mg tablet (Allergy 10 mg PO DAILY 11/04/20 06/16/21 Unknown History Relief (loratadine)) repaglinide 2 mg tablet 2 mg PO TID 11/04/20 06/16/21 Unknown History trazodone 100 mg tablet 100 mg PO DAILY 11/04/20 06/16/21 Unknown History ascorbic acid (vitamin C) 250 mg 250 mg PO QAM 04/23/21 06/16/21 Unknown History tablet fluticasone 100 mcg-salmeterol 50 1 ea INHALATION BID 04/23/21 06/16/21 Unknown History mcg/dose blistr powdr for inhalation fluticasone propionate 50 1 spray INTRANASAL DAILY 04/23/21 06/16/21 Unknown History mcg/actuation nasal spray,suspension pen needle, diabetic 32 gauge x #50 ea 04/23/21 05/02/21 Unknown History tiotropium bromide 18 mcg capsule 1 cap INHALATION DAILY 04/23/21 06/16/21 Unknown History with inhalation device
[2021-06-17 11:59] VITALS: BP 137/73; PULSE 84; RESP 20; O2SAT 98; BMI 41.4
[2021-06-22 02:22] LABS: Vitamin A 30 mcg/dL (38-98)
--- NOTE | 2021-06-24 12:02 | MHC.SHP ---
Pre-Procedural Eval Section A Date of Service: 06/24/21 Section B Chief Complaint: obesity Allergies: Allergies Allergy/AdvReac Type Severity Reaction Status Date / Time aspirin [Aspirin] Allergy Mild SWELLING Verified 06/16/21 10:17 Penicillins Allergy Mild SWELLING Verified 06/16/21 10:17 Plan I have reviewed the history and physical and performed a pertinent physical examination on my patient. No changes have occurred unless specified.
[2021-06-25] VITALS (17 sets, daily range): BP systolic 124–167; BP diastolic 53–79; PULSE 82–94; RESP 12–20; TEMP 36–37.1; O2SAT 94–99
[2021-06-25 06:35] LABS: Glucose, Whole Blood 172 mg/dL (60-115)
[2021-06-25] MEDS: Lactated Ringers 1,000 ML 100 ML IVCONT ×3 (06:57→21:25)
[2021-06-25 07:16] LABS: COVID-19 Test Negative (Negative)
--- NOTE | 2021-06-25 08:25 | PM.PNGS ---
Subjective Subjective Date of Service: 06/26/21 Interval history: This is a 66-year-old gentleman on postoperative day 1. Status post laparoscopic sleeve gastrectomy and hiatal hernia repair doing well. Patient's vital signs and postoperative day 1. Blood work are within normal range for postoperative day 1. Patient is ambulating, pain is well controlled. Patient is tolerating stage III diet. He denies nausea or vomiting, fever, chills. Physical Exam Vital Signs: Vital Signs: Last Vital Signs Temp 97.2 F 06/25/21 06:42 Pulse 82 06/25/21 06:42 Resp 20 06/25/21 06:42 BP 133/73 06/25/21 06:42 Pulse Ox 99 06/25/21 06:42 Body Mass Index 41.4 GI: Other: Soft nondistended mild appropriate incisional tenderness. Incisions are clean dry intact with Dermabond in place. Extrem: Other: Warm well-perfused bilateral lower extremities without edema or tenderness to palpation Procedures Date of Service Date of Service: 06/26/21 Progress Note: A&P Assessment and plan (1) Status post laparoscopic sleeve gastrectomy: Status: Acute Assessment and Plan: This is a 66-year-old gentleman on to postoperative day 1. Status post laparoscopic sleeve gastrectomy and hiatal hernia repair doing well. Patient is tolerating stage III diet and doing well. He will be discharged home today to follow up with me as an outpatient in 2 weeks time frame. Patient will continue on stage III diet until he follows up with me in the office in 2 weeks time frame. (2) History of repair of hiatal hernia: Status: Acute Fall Risk Details Current Medications: Current Medications Generic Name Dose Route Start Last Admin Trade Name Freq PRN Reason Stop Dose Admin Albuterol Sulfate 2.5 mg 06/25/21 06:22 Albuterol Sulfate (0.083%) 2.5 Mg/3 Ml Vial.Neb INHALE ONCE PRN Shortness of Breath/Wheezing Fentanyl 50 mcg 06/25/21 07:15 Fentanyl Citrate/Pf 100 Mcg/2 Ml Vial IVPUSH Q5M PRN Pain, Severe (Pain Scale 7-10) Protocol Lactated Ringer's 1,000 mls @ 100 mls/hr 06/25/21 06:30 06/25/21 06:57 Lr IVCONT 100 mls/hr .Q10H ROSS Administration Ondansetron HCl 4 mg 06/25/21 07:15 Ondansetron Hcl 4 Mg/2 Ml Vial IVPUSH ONCE PRN Nausea and Vomiting Oxycodone HCl 10 mg 06/25/21 07:15 Oxycodone Hcl Immed Release 5 Mg Tablet PO ONCE PRN Pain, Severe (Pain Scale 7-10) Time Spent With Patient Time: Total time spent is greater than 50% in coordination of care (as documented) at patient's floor/unit and/or counseling patient: Time with patient: less than 15 minutes Quality Stroke Does the patient have a stroke diagnosis?: No VTE Prior VTE?: No VTE Risk Level:: Surgical - moderate VTE Device Contraindication: N/A - Device Ordered VTE Drug Contraindication: Treatment Not Indicated
--- NOTE | 2021-06-25 08:26 | P.OP_ITS ---
Operative Note Operative Note Date of Service: 06/25/21 Narrative: Patient was brought into the operating room and placed on the operating room table in the supine position. General anesthesia was induced. Normal DVT prophylaxis was instituted and the patient received 2 grams of cefotetan preoperatively. The abdomen was then prepped and draped in the normal sterile fashion. A safety time-out was performed. A mixture of 1% lidocaine with epinephrine and ?% Marcaine plain was used to an esthetize the planned incision site in the left upper quadrant. A #11 scalpel was used to make a 5 mm left upper quadrant transverse incision through which a veress needle was placed. Three pops were heard going through the fascia. A saline drop test was used to confirm that the veress needle was intraabdominal. An optiview technique was then used to place a 5mm port in the left upper quadrant. A 5 mm 30 degree laproscope was then placed through this port and the abdominal cavity was surveyed and there were dense adhesions of the omentum to the previously placed epigastric mesh. We performed an extensive lysis of adhesions of the omentum to clear the abdominal wall of adhesions. The patient was placed in reverse Trendelenburg positioning. A maurisio liver retractor was then placed in the subxyphoid position and it was used to hold up the left lobe of the liver to the abdominal wall. This was secured to the bed using the liver retractor daniel. A INGA block was then performed for pain control on the right side of the abdomen. A 5 mm port was placed in the right upper quadrant near the falciform ligament. A 12 mm port was then placed in the mid epigastrium. One additional 5 mm port was placed in the left upper quadrant just to the left of the placement of the first port. I then performed a INGA block on the left side of the abdomen. I then removed the epigastric fat pad; there was a small anterior hiatal hernia noted. I reapproximated the left and right crura with a total of 1 stitch of 2-0 ethibond and a laparoscopic knot pusher. There was no residual hiatal hernia. I then opened up the angle of His. We then gained entry into the lesser sac about 4-5 cm from the pylorus. I had anesthesia place a 34 Bulgarian orogastric tube into the distal antrum to use as a sizing tool for gastric pouch size. I divided the short gastric vessels up to the angle of His. We then started the creation of the gastric pouch by firing a 60 mm purple load endostapler up the stomach about 4-5 cm from the pylorus. We completed the creation of the gastric pouch using a total of 4 firings of a 60 mm 1 firing of a 45 mm purple load stapler. We had anesthesia remove the orogastric tube, then we clamped across the distal antrum using a fired 60 mm endostapler. We flattened the patient and then instilled normal saline surrounding the newly created staple line. I then performed an on-table endoscopy. I passed the gastroscopy into the posterior oropharynx and down the esophagus evaluating the esophageal mucosa which was normal. There was no evidence of hiatal hernia. I passed the gastroscope into the gastric pouch and insufflated the gastric pouch. There was healthy pink mucosa and no evidence of active bleeding. There was no evidence of leak on laparoscopy. I desufflated the gastric pouch and removed the endoscope. I removed the endostapler from the abdomen and suctioned the fluid from the left upper quadrant. I then removed the partial gastrectomy specimen through the epigastric 12 mm port site. I reapproximated the 12 mm port using a 0 maxon suture with a laparoscopic suture passer. I instilled local anesthetic into the fascial closure site and tied the suture down at a pre ssure of 8-10 mm of Hg. There was no residual fascial defect. We removed the liver retractor and the left upper quadrant 5 mm ports under direct visualization. There was no evidence of any active bleeding. I desufflated the abdomen through the last remaining port and removed the laparoscope and 5 mm port. We reapproximated all incisions with a 4-0 monocryl subcuticular stitch. We cleaned and dried the abdominal skin and applied dermabond skin glue. All count were correct at the end of the case. The patient was awake and in stable condition prior to extubation and transfer to the recovery room.
--- NOTE | 2021-06-25 08:27 | PM.OP ---
Brief Operative Note Date of Service: 06/25/21 Pre-op diagnosis: Morbid obesity, BMI 41.4, COPD, hypercholesterolemia, hypertension, and type 2 diabetes mellitus Post-op diagnosis: other (Same and hiatal hernia) Procedure: Laparoscopic sleeve gastrectomy, hiatal hernia repair, Steven block, and intraoperative endoscopy Implants: covidien joie Surgeon: Kari Mccauley MD Anesthesia: GETA Was an Die Stamping Press Operator used for this Procedure?: No Estimated blood loss (mL): 10 Pathology: other (Partial gastrectomy) Condition: stable Disposition: PACU
--- NOTE | 2021-06-25 08:28 | P.DS_ITS ---
DS: Providers Provider Date of Service: 06/26/21 Date of admission: 06/25/21 06:22 Date of discharge: 06/26/21 Primary care physician: Tylor Valdez MD Admitting clinician: Kari Mccauley Attending physician on admission: Kari Mccauley Attending physician on discharge: Kari Mccauley Discharging clinician: Kari Mccauley DS: Diagnosis Discharge Diagnosis (1) History of repair of hiatal hernia: Status: Acute (2) Status post laparoscopic sleeve gastrectomy: Status: Acute (3) HLD (hyperlipidemia): Status: Acute (4) Hypertension: Status: Acute (5) COPD (chronic obstructive pulmonary disease): Status: Acute (6) T2DM (type 2 diabetes mellitus): Status: Acute (7) Morbid obesity due to excess calories: Status: Acute DS: Medications Discharge Medications Home Medications: Home Medications Medication Instructions Recorded Confirmed atorvastatin 20 mg tablet 20 mg PO BEDTIME 11/04/20 06/16/21 ferrous sulfate 325 mg (65 mg 325 mg PO DAILY 11/04/20 06/16/21 iron) tablet,delayed release furosemide 20 mg tablet 10 mg PO QAM 11/04/20 06/16/21 insulin glargine 100 unit/mL (3 75 unit SUBCUT QPM ml 11/04/20 06/16/21 mL) subcutaneous pen (Lantus Solostar U-100 Insulin) lisinopril 10 mg tablet 10 mg PO DAILY 11/04/20 06/16/21 loratadine 10 mg tablet (Allergy 10 mg PO DAILY 11/04/20 06/16/21 Relief (loratadine)) repaglinide 2 mg tablet 2 mg PO TID 11/04/20 06/16/21 trazodone 100 mg tablet 100 mg PO DAILY 11/04/20 06/16/21 ascorbic acid (vitamin C) 250 mg 250 mg PO QAM 04/23/21 06/16/21 tablet fluticasone 100 mcg-salmeterol 50 1 ea INHALATION BID 04/23/21 06/16/21 mcg/dose blistr powdr for inhalation fluticasone propionate 50 1 spray INTRANASAL DAILY 04/23/21 06/16/21 mcg/actuation nasal spray,suspension pen needle, diabetic 32 gauge x #50 ea 04/23/21 05/02/21 tiotropium bromide 18 mcg capsule 1 cap INHALATION DAILY 04/23/21 06/16/21 with inhalation device Previous Rx's Medication Instructions Recorded ipratropium 0.5 mg-albuterol 3 mg 3 ml INHALATION Q6H PRN #15 ml 09/12/20 (2.5 mg base)/3 mL nebulization soln gabapentin 300 mg capsule 300 mg PO BEDTIME #90 cap 04/02/21 tramadol 50 mg tablet 50 mg PO Q6H PRN #20 tab 04/02/21 dulaglutide 1.5 mg/0.5 mL 1.5 mg SUBCUT QWEEK 30 Days #2.5 ml 04/23/21 subcutaneous pen injector (Trulicity) vitamin A palmitate 10,000 unit 20,000 unit PO DAILY 30 Days #60 04/28/21 tablet tab acetaminophen 500 mg tablet 1,000 mg PO Q6H PRN #30 tab 06/16/21 (Tylenol Extra Strength) docusate sodium 100 mg capsule 100 mg PO BID #30 cap 06/16/21 (Colace) famotidine 20 mg tablet (Pepcid AC) 20 mg PO DAILY #30 tab 06/16/21 ondansetron HCl 4 mg tablet 4 mg PO Q6H PRN 5 Days #30 tab 06/16/21 (Zofran) simethicone 80 mg chewable tablet 80 mg PO TID-QID PRN #30 tab 06/16/21 (Gas Relief (simethicone)) DS: Summary Hospital Course Hospital Course: This is a 66-year-old Polish-speaking gentleman who was admitted through same- day surgery on 06/25/2021 where he underwent a laparoscopic sleeve gastrectomy with hiatal hernia repair that was uneventful. Patient was sent to the surgical floor and started on a stage II bariatric diet which he tolerated well. Vital signs within normal limits as well as postoperative blood work for postoperative day 1 On postoperative day 1.. Patient was advanced to a stage III diet which he tolerated well and was discharged home on postoperative day 1. Status at Discharge Functional status at discharge: independent ambulation Time Spent with Patient Time attestation: Total time spent providing and/or coordinating discharge services: Discharge coordination time: Less than 30 minutes Quality: Stroke Does the patient have a stroke diagnosis?: No Physical Exam Vital Signs: Vital Signs: Last Vital Signs Temp 97.2 F 06/25/21 06:42 Pulse 82 06/25/21 06:42 Resp 20 06/25/21 06:42 BP 133/73 06/25/21 06:42 Pulse Ox 99 06/25/21 06:42 Body Mass Index 41.4 DS: Data Data Completed and Pending Labs on day of discharge: Laboratory Results - last 24 hr 06/25/21 06/25/21 06:23 06:31 POC Glucose 172 H COVID-19 (JONATHAN) Negative COVID-19 Clin Com See Note Discharge Plan Discharge Patient Disposition: Home, Self-Care Discharge Diagnosis: Morbid obesity and hiatal hernia, status post sleeve gastrectomy and hiatal hernia repair Referrals: Tylor Valdez MD [Primary Care Provider] - 1 Week Discharge Medications: Continued ipratropium-albuterol 0.5 mg-3 mg(2.5 mg base)/3 mL solution for nebulization 3 ml inhalation Q6H PRN (Reason: shortness of breath or wheezing) Qty: 15 RF: 0 gabapentin 300 mg capsule 300 mg PO BEDTIME Qty: 90 RF: 0 tramadol 50 mg tablet 50 mg PO Q6H PRN (Reason: pain) Qty: 20 RF: 0 ferrous sulfate 325 mg (65 mg iron) tablet,delayed release (DR/EC) 325 mg PO DAILY RF: 0 atorvastatin 20 mg tablet 20 mg PO BEDTIME RF: 0 lisinopril 10 mg tablet 10 mg PO DAILY RF: 0 trazodone 100 mg tablet 100 mg PO DAILY RF: 0 loratadine [Allergy Relief (loratadine)] 10 mg tablet 10 mg PO DAILY RF: 0 acetaminophen [Tylenol Extra Strength] 500 mg tablet 1,000 mg PO Q6H PRN (Reason: pain) Qty: 30 RF: 1 famotidine [Pepcid AC] 20 mg tablet 20 mg PO DAILY Qty: 30 RF: 1 simethicone [Gas Relief (simethicone)] 80 mg tablet,chewable 80 mg PO TID-QID PRN (Reason: abdominal distention) Qty: 30 RF: 1 ondansetron HCl [Zofran] 4 mg tablet 4 mg PO Q6H PRN (Reason: nausea and vomiting) 5 Days Qty: 30 RF: 1 docusate sodium [Colace] 100 mg capsule 100 mg PO BID Qty: 30 RF: 1 tiotropium bromide 18 mcg capsule, w/inhalation device 1 cap inhalation DAILY RF: 0 fluticasone propionate 50 mcg/actuation spray,suspension 1 spray intranasal DAILY RF: 0 fluticasone propion-salmeterol 100-50 mcg/dose blister with device 1 ea inhalation BID RF: 0 ascorbic acid (vitamin C) 250 mg tablet 250 mg PO QAM RF: 0 (DME) pen needle, diabetic 32 gauge x 5/32 needle See Rx Instructions ea .ROUTE .MEDSUPPLY Qty: 50 RF: 0 Trulicity 1.5 mg/0.5 mL pen injector 1.5 mg subcut QWEEK 30 Days Qty: 2.5 RF: 11 Changed Lantus Solostar U-100 Insulin 100 unit/mL (3 mL) insulin pen 30 unit subcut QPM Qty: 0 RF: 0 Discontinued vitamin A palmitate 10,000 unit tablet 20,000 unit PO DAILY 30 Days Qty: 60 RF: 1 furosemide 20 mg tablet 10 mg PO QAM RF: 0 repaglinide 2 mg tablet 2 mg PO TID RF: 0 Discharge Orders: Discharge Order (Routine); Ordered 06/26/21 Ordered By: Kari Mccauley Activity on Discharge: No heavy lifting Stand Alone Forms: Patient Portal Discharge page Activity Restrictions/Additional Instructions: No lifting greater than 5 lbs for the next 4 weeks. No driving within 24 hours of taking narcotic pain medications. If you do not move your bowels in the next 2 days, please take milk of magnesia over the counter or MiraLax. Please follow the post op diet and do not advance your diet until you are seen in the office in about 2 weeks. Please walk around your home every hour or two to prevent blood clots from forming in your legs. You do not need to wake from sleeping to walk. Please sleep in a bed or couch to prevent kinking at the hips and knees. Please take your incentive spirometer (your lung school administrator) home with you and use it for the next few days to prevent pneumonias. You may shower, no hot tubs, baths or swimming pools. Please call the office with any questions or concerns such as increasing abdominal pain, fever, chills, shortness of breath, chest pain, leg pain or swelling, or redness or drainage from your incisions. Please stay on stage 3 diet which includes sugar free clear liquids such as ice pops and jello and broth and crystal light. Avoid all carbonation. Please drink 2-3 protein shakes with at least 20-30 grams of protein daily or 2 of the celebrate 4:1 shakes which can be purchased in our office in addition to 1 other protein shake of your choice. celebrate shakes have all of the bariatric vitamins you need if you consume these shakes. If you are drinking other protein shakes, you will need to order the bariatric vitamin Opurity chewable online, or use the celebrate bariatric vitamin and an additional celebrate calcium daily which will provide all the vitamins you need. You may take the bariatric capsule vitamin in about 1 month. Please make sure you are consuming at least 40- 60 ounces of water in addition to your 2-3 protein shakes daily. You do not need to use the medicine cups to drink year shakes or water following discharge. Just drink slowly in order to ensure that she consume all of your liquids for the day. The medicine cups were only to teach you to drink slowly. They are not required at home. Do not hesitate to contact the office with any questions. Care Plan Goals: Weight loss and improved quality of life Health Concerns: Morbid obesity Plan of Treatment: Weight loss surgery which will provide the needed weight loss Assessment: Patient doing well at discharge
[2021-06-25] MEDS: HYDROmorphone HCl 0.5 MG/0.5 ML SYRINGE IVPUSH ×3 (10:55→11:15)
[2021-06-25 12:17] LABS: Glucose, Whole Blood 232 mg/dL (60-115)
[2021-06-25] MEDS: Insulin Lispro 100 UNIT/ML 3 ML VIAL SUBCUT ×3 (12:21→23:51)
[2021-06-25 16:01] LABS: Glucose, Whole Blood 251 mg/dL (60-115)
[2021-06-25 20:21] LABS: Glucose, Whole Blood 269 mg/dL (60-115)
[2021-06-25] MEDS: cefoTEtan disodium 2 GM in 0.9 % Sodium Chloride 50 ML IV (21:20)
[2021-06-25] MEDS: Famotidine/PF 20 MG/2 ML VIAL IVPUSH (21:20)
[2021-06-25] MEDS: 0.9 % Sodium Chloride Flush 3 ML SYRINGE IVFLUSH ×2 (21:20→23:55)
[2021-06-25 23:44] LABS: Glucose, Whole Blood 274 mg/dL (60-115)
[2021-06-25] MEDS: hydrALAZINE HCl 20 MG/ML VIAL 5 MG IVPUSH (23:51)
[2021-06-26 00:59] VITALS: BP 141/68
[2021-06-26 04:00] VITALS: BP 161/75; PULSE 94; RESP 16; TEMP 37.1; O2SAT 98
[2021-06-26] MEDS: hydrALAZINE HCl 20 MG/ML VIAL 5 MG IVPUSH (04:53)
[2021-06-26 06:02] LABS: Glucose, Whole Blood 241 mg/dL (60-115)
[2021-06-26] MEDS: Insulin Lispro 100 UNIT/ML 3 ML VIAL SUBCUT (06:14)
[2021-06-26] MEDS: Lactated Ringers 1,000 ML 100 ML IVCONT (06:17)
[2021-06-26 06:23] VITALS: BP 135/69
[2021-06-26 06:34] LABS: Hematocrit 37.4 % (42-52); Mean Corpuscular HGB Conc 32.1 g/dl (31.0-36.0); Mean Corpuscular Hemoglobin 29.5 pg (27.0-33.0); Mean Corpuscular Volume 91.9 fL (80-98); Mean Platelet Volume 10.6 fL (9.4-12.4); Platelet Count 271 X10*3/uL (160-400); Red Blood Count 4.07 X10*6/uL (4.60-5.80); White Blood Count 13.1 X10*3/uL (4.8-10.8)
[2021-06-26 07:07] VITALS: BP 154/83; PULSE 95; RESP 17; TEMP 36.3; O2SAT 98
[2021-06-26 07:11] LABS: Anion Gap 13 (12-20); Blood Urea Nitrogen 17 mg/dL (9-16); Carbon Dioxide 25 mmol/L (22-29); Chloride 101 mmol/L (96-108); Creatinine Clr Calc Pharmacy 67.2; Estimated Glomerular Filt Rate 47; Glucose Random 238 mg/dL (60-115); Potassium 5.5 mmol/L (3.3-5.1); Sodium 133 mmol/L (135-145)
[2021-06-26] MEDS: lisinopriL 10 MG TABLET PO (07:34)
[2021-06-26] MEDS: Famotidine/PF 20 MG/2 ML VIAL IVPUSH (07:38)
[2021-06-26 07:54] LABS: Glucose, Whole Blood 214 mg/dL (60-115)
--- NOTE | 2021-06-26 09:15 | HO.POSTANES ---
Post Anesthesia Evaluation Post Anesthesia Evaluation Vital Signs: Vital Signs Temp Pulse Resp BP Pulse Ox 06/26/21 07:07 97.3 F 95 17 154/83 H 98 06/26/21 06:23 135/69 06/26/21 04:00 98.8 F 94 16 161/75 H 98 06/26/21 00:59 141/68 H 06/25/21 23:40 98.7 F 93 16 167/79 H 98 Anesthesia: General Endotracheal-GETA Mental Status: Awake Pain Control: Satisfactory Nausea/Vomiting: None Hydration: Adequate Anesthesia-Related Issues: No Anes. Related Issues
--- NOTE | 2021-06-26 09:29 | MHC.CM.PN ---
IMM 06/26/21, PT ADMITTED S/P LAP SLEEVE GASTRECTOMY, CM MET W/PT, DTR AT BEDSIDE, PT REPORTS HE LIVES ALONE, HAS A WELL LOGGING OPERATOR MUD ANALYSIS FOR ASSISTANCE W/CARE/HH CHORES, PT ALSO REPORTS PTS HAS WELL LOGGING OPERATOR MUD ANALYSIS AND DTR CONFIRMS PT HAS 30HRS/WK, PT VERIFIES PCP AND HAS COMPLETED A HCP W/CM, REVIEWED W/EXECUTIVE ADVISOR SERVICES, PT RECEIVED EDUCATIONAL INFO, ORIGINAL AND 2 COPIES, COPY UPLOADED TO [employer] AND PLACED IN CHART. D/C PLAN: HOME TODAY W/RESUMP OF WELL LOGGING OPERATOR MUD ANALYSIS AND FOLLOW-UP W/SURGICAL, DTR FOR TRANSPORT HCP: BRODIE GOETZ [phone]
== END 2021-06-26 09:23 | disposition home or self-care (01) | DRG 621 ==
LOC: HO.SSSA 08:38 → HO.S3 11:30
PROVIDERS: Admitting Provider Surgery; PCP Internal Medicine; Visit Provider Surgery
PROC: 0DB64Z3 Excision of Stomach, Percutaneous Endoscopic Approach, Vertical (ICD-10-PCS; CPT 43845; principal; 2021-06-25 08:10)
DX: E66.01 Morbid (severe) obesity due to excess calories (principal); K66.0 Peritoneal adhesions (postprocedural) (postinfection); K44.9 Diaphragmatic hernia without obstruction or gangrene; Z68.41 Body mass index [BMI] 40.0-44.9, adult; J44.9 Chronic obstructive pulmonary disease, unspecified; E78.00 Pure hypercholesterolemia, unspecified; I10 Essential (primary) hypertension; E11.9 Type 2 diabetes mellitus without complications; Z20.822 Contact with and (suspected) exposure to COVID-19; Z87.891 Personal history of nicotine dependence; Z88.0 Allergy status to penicillin; Z88.6 Allergy status to analgesic agent; Z79.51 Long term (current) use of inhaled steroids; Z79.4 Long term (current) use of insulin; Z79.899 Other long term (current) drug therapy
CPT/HCPCS: 36415; 80048; 81001; 82040; 82947; 84590; 85025; 85027; 85610; 85730; 86850; 86900; 86901; 87635; 88307; 88342; 93005; 99024; C1776; J0131; J1100; J1170; J2250; J2405; J2550; J3010

== ENCOUNTER → 2021-07-18 11:06 | Outpatient (BNVA) | payer MEDICARE, MEDICAID, SELFPAY | PROVIDERS: PCP Internal Medicine; Visit Provider Surgery | DX: Z98.84 Bariatric surgery status (principal); Z98.890 Other specified postprocedural states; Z87.19 Personal history of other diseases of the digestive system | CPT/HCPCS: 99212 ==

== ENCOUNTER → 2021-08-08 10:02 | Outpatient (BNVA) | payer MEDICARE, MEDICAID, SELFPAY | PROVIDERS: PCP Internal Medicine; Referring Provider Internal Medicine; Visit Provider Surgery | DX: Z98.84 Bariatric surgery status (principal); Z98.890 Other specified postprocedural states; Z87.19 Personal history of other diseases of the digestive system | CPT/HCPCS: 99212 ==

== ENCOUNTER → 2021-08-25 11:13 | Outpatient (BNVA) | payer MEDICARE, MEDICAID, SELFPAY | PROVIDERS: PCP Internal Medicine; Referring Provider Internal Medicine; Visit Provider Dietitian, Registered | DX: E66.9 Obesity, unspecified (principal); E11.9 Type 2 diabetes mellitus without complications | CPT/HCPCS: 97803 ==

== ENCOUNTER → 2021-09-19 10:43 | Outpatient (BNVA) | payer MEDICARE, MEDICAID, SELFPAY | PROVIDERS: PCP Internal Medicine; Referring Provider Internal Medicine; Visit Provider Physician Assistant Surgical ==

== ENCOUNTER 2021-09-19 11:29 | Emergency (ER) | payer MEDICARE, MEDICAID, SELFPAY ==
--- NOTE | 2021-09-19 | ECG_ITS ---
Test Reason : SYNCOPE Blood Pressure : / mmHG Vent. Rate : 095 BPM Atrial Rate : 095 BPM P-R Int : 144 ms QRS Dur : 076 ms QT Int : 346 ms P-R-T Axes : 063 060 013 degrees QTc Int : 434 ms Normal sinus rhythm T wave abnormality, consider inferior ischemia Abnormal ECG When compared with ECG of 16-JUN-2021 11:14, Inverted T waves have replaced nonspecific T wave abnormality in Inferior leads Lateral leads Referred By: Pilar English Electronically Signed By:MAXIME BOWLING MD
[2021-09-19 11:32] VITALS: BP 130/77; PULSE 94; RESP 18; TEMP 36.7; O2SAT 98; BMI 34.5
--- NOTE | 2021-09-19 13:12 | ED_ITS ---
HPI - General Adult General Chief complaint: General Medical Stated complaint: multiple complaints Time Seen by Provider: 09/19/21 13:10 History of Present Illness HPI narrative: Patient is a 66-year-old male with a history of gastric bypass. History of diabetes status post gastric sleeve in June. Patient had poor intake. Feels lightheaded upon getting up. Patient had a near syncopal episode today. Denies any abdominal pain. No vomiting Related Data Home Medications Medication Instructions Recorded Confirmed atorvastatin 20 mg tablet 20 mg PO BEDTIME 11/04/20 09/19/21 ferrous sulfate 325 mg (65 mg 325 mg PO DAILY 11/04/20 07/18/21 iron) tablet,delayed release ascorbic acid (vitamin C) 250 mg 250 mg PO QAM 04/23/21 09/19/21 tablet fluticasone 100 mcg-salmeterol 50 1 ea INHALATION BID 04/23/21 09/19/21 mcg/dose blistr powdr for inhalation pen needle, diabetic 32 gauge x #50 ea 04/23/21 07/18/21 tiotropium bromide 18 mcg capsule 1 cap INHALATION DAILY 04/23/21 09/19/21 with inhalation device insulin glargine 100 unit/mL (3 20 unit SUBCUT QPM ml 07/18/21 09/19/21 mL) subcutaneous pen (Lantus Solostar U-100 Insulin) Previous Rx's Medication Instructions Recorded ipratropium 0.5 mg-albuterol 3 mg 3 ml INHALATION Q6H PRN #15 ml 09/12/20 (2.5 mg base)/3 mL nebulization soln dulaglutide 1.5 mg/0.5 mL 1.5 mg (0.5 mL) SUBCUT QWEEK 30 04/23/21 subcutaneous pen injector Days #2.5 ml (Trulicity) acetaminophen 500 mg tablet 1,000 mg PO Q6H PRN #30 tab 06/16/21 (Tylenol Extra Strength) Allergies Allergy/AdvReac Type Severity Reaction Status Date / Time aspirin [Aspirin] Allergy Mild SWELLING Verified 09/19/21 11:32 Penicillins Allergy Mild SWELLING Verified 09/19/21 11:32 Review of Systems Review of Systems: No fever no chills no chest Pain or diaphoresis Positive near syncopal episodes Positive decreased p.o. intake No bloody stool No focal weakness No leg swelling No travel No history of blood clot All systems reviewed otherwise negative Yes all other systems are reviewed and are negative [facility] Past Medical History Attestation statement: The following information was validated with the patient. Medical History Anxiety Arthritis Asthma COPD (chronic obstructive pulmonary disease) COVID-19 vaccine series completed Depression HLD (hyperlipidemia) Hypertension T2DM (type 2 diabetes mellitus) Venous insufficiency Vitamin D deficiency Surgical History H/O colonoscopy with polypectomy History of esophagogastroduodenoscopy (EGD) History of repair of hiatal hernia History of umbilical hernia repair Status post laparoscopic sleeve gastrectomy Family History Family History Father CVD (cardiovascular disease) Heart disease Mother Heart disease CVD (cardiovascular disease) Brother Cancer Brother Cancer Brother Heart attack Sister CVD (cardiovascular disease) Diabetes mellitus Hypertension Arthritis Social History Social History Are you a primary reservoir caretaker to a significant other at home: No Do you presently have visiting nurse or other home services: Yes (PLANISHING HAMMER OPERATOR-daughter) Alcohol intake: current Alcohol intake frequency: holidays/special occasions only Patient Tobacco Use Status: Former Tobacco user Quit Date: age 19 Tobacco use type: Cigarette Advance Directives: Yes Advance Directives on File: Yes Advance Directives Date on File: 06/27/21 service: No Current occupational status: unemployed Physical Exam Vital Signs: Vital Signs: Last Vital Signs Temp 98.4 F 09/19/21 15:19 Pulse 64 09/19/21 15:26 Resp 14 09/19/21 15:19 BP 122/69 09/19/21 15:26 Pulse Ox 98 09/19/21 15:19 Body Mass Index 34.5 Appearance: Alert. Oriented X3. No acute distress. Eyes: Pupils equal, round and reactive to light. ENT: Pharynx normal. Neck: Normal inspection. Neck supple. No lymph nodes noted. No crepitus CVS: Normal heart rate and rhythm. Pulses normal. Normal S1 and S2 Respiratory: No respiratory distress. Breath sounds normal. No Wheezing. No rales Abdomen: Soft and nontender. No rigidity. No distention. good BS x4 Skin: Skin warm and dry. Normal skin color. Normal skin turgor. Extremities: No lower extremity edema. Neurovascular intact to all extremities. No Lacerations. No Rash Neuro: Oriented X 3. No motor deficit. No sensory deficit. Moving all extermities. No slurred speech Medical Decision Making MDM Narrative Medical decision making narrative: Patient's EKG showed a sinus pattern heart rate was 100 FL QRS QT within normal limits there is nonspecific T-wave flattening diffusely noted. Patient signs and symptoms suggestive of vasovagal syncope near syncope likely secondary to decreased p.o. intake. Patient's abdomen is soft nontender. Patient's D-dimer is 280. Age adjusted less than 350. Unlikely secondary to be PE. Patient well-appearing hydrated with fluids. Will discharge patient home. Close follow-up on an outpatient basis. In stable condition. Troponin was negative. Lab Data Result diagrams: 09/19/21 13:45 09/19/21 13:45 Labs: Lab Results 09/19/21 09/19/21 09/19/21 Range/Units 13:45 13:45 13:45 WBC 5.2 (4.8-10.8) X10*3/uL RBC 4.68 (4.60-5.80) X10*6/uL Hgb 13.9 L (14.0-18.0) g/dl Hct 43.7 (42.0-52.0) % MCV 93.4 (80.0-98.0) fL MCH 29.7 (27.0-33.0) pg MCHC 31.8 (31.0-36.0) g/dl RDW 12.4 (11.0-16.0) % Plt Count 245 (160-400) X10*3/uL MPV 10.7 (9.4-12.4) fL Immature Gran % (Auto) 0.2 (0.0-0.4) % Neut % (Auto) 61.7 (45-73) % Lymph % (Auto) 29.1 (20-40) % Mercer % (Auto) 6.5 (2-11) % Eos % (Auto) 2.1 (0-4) % Baso % (Auto) 0.4 (0-2) % Lymph # (Auto) 1.5 (1.2-4.9) X10*3/uL Mercer # (Auto) 0.3 (0.1-1.2) X10*3/uL Eos # (Auto) 0.1 (0.0-0.4) X10*3/uL Baso # (Auto) 0.0 (0.0-0.2) X10*3/uL Abs Immat Gran (auto) 0.01 (0.00-0.03) X10*3/uL Absolute Neuts (auto) 3.2 (2.0-8.3) x10*3/uL Absolute Nucleated RBC 0.000 (0.0-0.012) X10*3/uL Nucleated RBC % (auto) 0.0 (0.0-0.2) /100WBC D-Dimer 281 NG/ML Sodium 140 (135-145) mmol/L Potassium 4.4 (3.3-5.1) mmol/L Chloride 105 (96-108) mmol/L Carbon Dioxide 26 (22-29) mmol/L Anion Gap 13 (12-20) BUN 9 (9-16) mg/dL Creatinine 1.44 H (0.5-1.4) mg/dL Estim Creat Clear Calc 61.3 Estimated GFR 49 Random Glucose 190 H (60-115) mg/dL Calcium 9.7 D (8.4-10.2) mg/dL Total Bilirubin 1.6 H (0.0-1.0) mg/dL Direct Bilirubin 0.5 (0.0-0.5) mg/dL AST 36 (5-37) U/L ALT 31 (0-40) U/L Alkaline Phosphatase 149 H (39-117) U/L Troponin I High Sens (<3.5-35.0) ng/L Total Protein 7.0 (6.5-8.0) g/dL Albumin 3.6 (3.5-5.0) g/dL Lipase 7 L (8-78) U/L 09/19/21 Range/Units 13:45 WBC (4.8-10.8) X10*3/uL RBC (4.60-5.80) X10*6/uL Hgb (14.0-18.0) g/dl Hct (42.0-52.0) % MCV (80.0-98.0) fL MCH (27.0-33.0) pg MCHC (31.0-36.0) g/dl RDW (11.0-16.0) % Plt Count (160-400) X10*3/uL MPV (9.4-12.4) fL Immature Gran % (Auto) (0.0-0.4) % Neut % (Auto) (45-73) % Lymph % (Auto) (20-40) % Mercer % (Auto) (2-11) % Eos % (Auto) (0-4) % Baso % (Auto) (0-2) % Lymph # (Auto) (1.2-4.9) X10*3/uL Mercer # (Auto) (0.1-1.2) X10*3/uL Eos # (Auto) (0.0-0.4) X10*3/uL Baso # (Auto) (0.0-0.2) X10*3/uL Abs Immat Gran (auto) (0.00-0.03) X10*3/uL Absolute Neuts (auto) (2.0-8.3) x10*3/uL Absolute Nucleated RBC (0.0-0.012) X10*3/uL Nucleated RBC % (auto) (0.0-0.2) /100WBC D-Dimer NG/ML Sodium (135-145) mmol/L Potassium (3.3-5.1) mmol/L Chloride (96-108) mmol/L Carbon Dioxide (22-29) mmol/L Anion Gap (12-20) BUN (9-16) mg/dL Creatinine (0.5-1.4) mg/dL Estim Creat Clear Calc Estimated GFR Random Glucose (60-115) mg/dL Calcium (8.4-10.2) mg/dL Total Bilirubin (0.0-1.0) mg/dL Direct Bilirubin (0.0-0.5) mg/dL AST (5-37) U/L ALT (0-40) U/L Alkaline Phosphatase (39-117) U/L Troponin I High Sens 5.3 (<3.5-35.0) ng/L Total Protein (6.5-8.0) g/dL Albumin (3.5-5.0) g/dL Lipase (8-78) U/L Discharge Plan Discharge Clinical Impression: Vasovagal syncope Patient Disposition: Home, Self-Care Instructions: Syncope (ED) Prescriptions: No Action ipratropium-albuterol 0.5 mg-3 mg(2.5 mg base)/3 mL solution for nebulization 3 ml inhalation Q6H PRN (Reason: shortness of breath or wheezing) Qty: 15 RF: 0 ferrous sulfate 325 mg (65 mg iron) tablet,delayed release (DR/EC) 325 mg PO DAILY RF: 0 atorvastatin 20 mg tablet 20 mg PO BEDTIME RF: 0 acetaminophen [Tylenol Extra Strength] 500 mg tablet 1,000 mg PO Q6H PRN (Reason: pain) Qty: 30 RF: 1 tiotropium bromide 18 mcg capsule, w/inhalation device 1 cap inhalation DAILY RF: 0 fluticasone propion-salmeterol 100-50 mcg/dose blister with device 1 ea inhalation BID RF: 0 ascorbic acid (vitamin C) 250 mg tablet 250 mg PO QAM RF: 0 (DME) pen needle, diabetic 32 gauge x 5/32 needle See Rx Instructions ea .ROUTE .MEDSUPPLY Qty: 50 RF: 0 Trulicity 1.5 mg/0.5 mL pen injector 1.5 mg subcut QWEEK 30 Days Qty: 2.5 RF: 11 Lantus Solostar U-100 Insulin 100 unit/mL (3 mL) insulin pen 20 unit subcut QPM RF: 0 Referrals: Tylor Valdez MD [Primary Care Provider] - 2 days
[2021-09-19 13:18] VITALS: BP 169/95; PULSE 70; RESP 16; TEMP 37.2; O2SAT 98
[2021-09-19 13:50] LABS: MANUAL DIFF FLAG NO
[2021-09-19 13:59] LABS: Basophils Percent Auto 0.4 % (0-2); Eosinophils Absolute Auto 0.1 X10*3/uL (0.0-0.4); Eosinophils Percent Auto 2.1 % (0-4); Hematocrit 43.7 % (42.0-52.0); Hemoglobin 13.9 g/dl (14.0-18.0); Imm Gran Abs Auto 0.01 X10*3/uL (0.00-0.03); Imm Gran Pct Auto 0.2 % (0.0-0.4); Lymphocytes Absolute Auto 1.5 X10*3/uL (1.2-4.9); Lymphocytes Percent Auto 29.1 % (20-40); Mean Corpuscular HGB Conc 31.8 g/dl (31.0-36.0); Mean Corpuscular Hemoglobin 29.7 pg (27.0-33.0); Mean Corpuscular Volume 93.4 fL (80.0-98.0); Mean Platelet Volume 10.7 fL (9.4-12.4); Monocytes Absolute Auto 0.3 X10*3/uL (0.1-1.2); Monocytes Percent Auto 6.5 % (2-11); Neutrophils Absolute Auto 3.2 x10*3/uL (2.0-8.3); Neutrophils Percent Auto 61.7 % (45-73); Platelet Count 245 X10*3/uL (160-400); Red Blood Count 4.68 X10*6/uL (4.60-5.80); Red Cell Distribution Width 12.4 % (11.0-16.0); White Blood Count 5.2 X10*3/uL (4.8-10.8)
[2021-09-19 14:00] LABS: D Dimer 281 NG/ML
[2021-09-19] MEDS: 0.9 % Sodium Chloride 1,000 ML 999 ML IV (14:04)
[2021-09-19] MEDS: ondansetron HCL 4 MG/2 ML VIAL IVPUSH (14:04)
[2021-09-19 14:15] LABS: Troponin-I High Sensitivity 5.3 ng/L (<3.5-35.0)
[2021-09-19 14:25] LABS: Alanine Aminotransferase 31 U/L (0-40); Albumin Level 3.6 g/dL (3.5-5.0); Alkaline Phosphatase 149 U/L (39-117); Anion Gap 13 (12-20); Aspartate Amino Transferase 36 U/L (5-37); Bilirubin Direct 0.5 mg/dL (0.0-0.5); Bilirubin Total 1.6 mg/dL (0.0-1.0); Blood Urea Nitrogen 9 mg/dL (9-16); Calcium 9.7 mg/dL (8.4-10.2); Carbon Dioxide 26 mmol/L (22-29); Chloride 105 mmol/L (96-108); Creatinine Clr Calc Pharmacy 61.3; Estimated Glomerular Filt Rate 49; Glucose Random 190 mg/dL (60-115); Lipase 7 U/L (8-78); Potassium 4.4 mmol/L (3.3-5.1); Sodium 140 mmol/L (135-145)
[2021-09-19 15:19] VITALS: BP 132/73; PULSE 83; RESP 14; TEMP 36.9; O2SAT 98
[2021-09-19 15:25] VITALS: BP 122/67; PULSE 68
[2021-09-19 15:26] VITALS: BP 122/69; PULSE 64
[2021-09-19 15:27] VITALS: BP 114/69; PULSE 62
== END 2021-09-19 16:19 | disposition home or self-care (01) ==
PROVIDERS: Emergency Provider Emergency Medicine Emergency Medical Services; PCP Internal Medicine
DX: R55 Syncope and collapse (principal); E11.9 Type 2 diabetes mellitus without complications; I10 Essential (primary) hypertension; J44.9 Chronic obstructive pulmonary disease, unspecified; E66.9 Obesity, unspecified; Z68.35 Body mass index [BMI] 35.0-35.9, adult; Z79.4 Long term (current) use of insulin; Z98.84 Bariatric surgery status
CPT/HCPCS: 36415; 80048; 80076; 83690; 84484; 85025; 85379; 93005; 96361; 96374; 99212; 99284; J2405

== ENCOUNTER → 2021-09-25 10:11 | Outpatient (BNVA) | payer MEDICARE, MEDICAID, SELFPAY | PROVIDERS: PCP Internal Medicine; Visit Provider Surgery Vascular Surgery | DX: I83.12 Varicose veins of left lower extremity with inflammation (principal) | CPT/HCPCS: 99212 ==

== ENCOUNTER 2021-10-03 15:32 | Emergency (ER) | payer MEDICARE, MEDICAID, SELFPAY ==
[2021-10-03] VITALS (10 sets, daily range): BP systolic 88–148; BP diastolic 58–83; PULSE 70–120; RESP 12–20; TEMP 36.2–36.8; O2SAT 98–99; BMI 32.5
--- NOTE | ~2021-10-03 | CT_ITS ---
EXAMINATION: CT ABDOMEN AND PELVIS WITH ORAL CONTRAST CLINICAL INFORMATION: 66-year-old male with abdominal pain and vomiting. History of gastric surgery. COMPARISON: Abdominal ultrasound 04/06/[address] abdomen pelvis 03/15/2019 TECHNIQUE: Multidetector volumetric images were obtained from the superior aspect of the liver through the pubic symphysis following administration of oral contrast. Sagittal and coronal reformatted images were obtained on the technologist's workstation. This CT examination was performed using dose optimization techniques as appropriate, variously including the following: *Automated exposure control *Adjustment of mA and/or kV according to patient size (this includes techniques or standardized protocols for targeted exams where dose is matched to indication/reason for exam; i.e. extremities or head) *Use of iterative reconstruction technique DLP: 770 mGy-cm FINDINGS: Visualized lung bases demonstrate mild dependent atelectasis. The liver is normal in size but demonstrates diffusely decreased attenuation suggesting hepatic steatosis. The gallbladder is normal in appearance. Fatty atrophy of the pancreas. Spleen and adrenal glands are unremarkable. Symmetrically sized kidneys. No renal calculi or hydronephrosis bilaterally. Small left renal cyst. Surgical changes of the stomach. Normal caliber loops of small and large bowel. Mild colonic diverticulosis without CT evidence to colitis. Normal appendix. Normal caliber abdominal aorta. No retroperitoneal lymphadenopathy. Surgical changes consistent with ventral abdominal hernia repair. A tiny fat-containing umbilical hernia of the upper abdomen is noted just above the surgical mesh. The bladder is decompressed and therefore not accurately evaluated. The prostate gland is normal in size. No gross free pelvic fluid. Small fat-containing inguinal hernias bilaterally. No inguinal lymphadenopathy. Moderate diffuse degenerative changes of the spine. CT/CT abdomen pelvis w con IMPRESSION: -No renal calculi or hydronephrosis bilaterally. -Mild colonic diverticulosis. -Suspected hepatic steatosis. Fleischner guidelines were followed.
--- NOTE | 2021-10-03 17:57 | ED_ITS ---
HPI - Abdominal Pain General Chief Complaint: Abdominal Pain Stated Complaint: Abdominal pain Time Seen by Provider: 10/03/21 17:53 Source: patient Mode of arrival: EMS Limitations: language barrier History of Present Illness HPI narrative: Patient is status post gastric sleeve surgery on 06/[address] Park supposed to be on protein shakes which he is unable to get for last 2 weeks trying to eat soft and semi solid food but throwing up also complaining of abdominal pain feel dizzy on standing has fallen multiple times been to [facility] 2 weeks ago. Patient unable to follow up with surgeon as she left the [facility]. Related Data Home Medications Medication Instructions Recorded Confirmed atorvastatin 20 mg tablet 20 mg PO BEDTIME 11/04/20 09/19/21 ferrous sulfate 325 mg (65 mg 325 mg PO DAILY 11/04/20 07/18/21 iron) tablet,delayed release ascorbic acid (vitamin C) 250 mg 250 mg PO QAM 04/23/21 09/19/21 tablet fluticasone 100 mcg-salmeterol 50 1 ea INHALATION BID 04/23/21 09/19/21 mcg/dose blistr powdr for inhalation pen needle, diabetic 32 gauge x #50 ea 04/23/21 07/18/21 tiotropium bromide 18 mcg capsule 1 cap INHALATION DAILY 04/23/21 09/19/21 with inhalation device insulin glargine 100 unit/mL (3 20 unit SUBCUT QPM ml 07/18/21 09/19/21 mL) subcutaneous pen (Lantus Solostar U-100 Insulin) Previous Rx's Medication Instructions Recorded ipratropium 0.5 mg-albuterol 3 mg 3 ml INHALATION Q6H PRN #15 ml 09/12/20 (2.5 mg base)/3 mL nebulization soln dulaglutide 1.5 mg/0.5 mL 1.5 mg (0.5 mL) SUBCUT QWEEK 30 04/23/21 subcutaneous pen injector Days #2.5 ml (Trulicity) acetaminophen 500 mg tablet 1,000 mg PO Q6H PRN #30 tab 06/16/21 (Tylenol Extra Strength) Allergies Allergy/AdvReac Type Severity Reaction Status Date / Time aspirin [Aspirin] Allergy Mild SWELLING Verified 10/03/21 15:59 Penicillins Allergy Mild SWELLING Verified 10/03/21 15:59 Review of Systems Review of Systems Yes all other systems are reviewed and are negative Physical Exam Vital Signs: Vital Signs: Last Vital Signs Temp 98.2 F 10/03/21 17:54 Pulse 94 10/03/21 22:20 Resp 12 10/03/21 20:00 BP 102/67 10/03/21 22:20 Pulse Ox 99 10/03/21 20:00 Body Mass Index 32.5 Appearance: Alert. Oriented X3. No acute distress. Eyes: PERRLA, No Nystagmus ENT: Pharynx normal. Oral Mucosa moist Neck: Normal inspection. Neck supple. CVS: Normal heart rate and rhythm. Pulses normal. Respiratory: No respiratory distress. Equal air entry bilateral, no wheezing/rales/rhonchi Abdomen: Soft, mild tenderness epigastric area no rebound tenderness or guarding Bowel sounds are present, no mass palpable, no CVA tenderness Skin: Skin warm and dry. Normal skin color. Normal skin turgor. Extremities: No lower extremity edema. No calf tenderness Neuro: Oriented X 3. No motor deficit. No sensory deficit.No cerebellar signs , cranial nerves II-XII intact MDM - Abdominal Pain MDM Narrative Medical decision making narrative: Patient status post laparoscopic gastric slee ve surgery noncompliant with diet not eating well came for dizziness and weakness received IV fluids and had p.o. fluids initially patient had orthostatic hypotension repeat orthostatic were better without any symptoms. Family is bedside case discussed with bariatric surgery PA advised to follow up as outpatient increase oral intake using protein shakes Medical Records Attestation: I reviewed the patient's medical records. Lab Data Attestation: I reviewed the patient's lab results. Result diagrams: 10/03/21 18:38 10/03/21 18:38 Labs: Lab Results 10/03/21 10/03/21 10/03/21 Range/Units 18:38 18:38 18:38 WBC 6.3 (4.8-10.8) X10*3/uL RBC 4.34 L (4.60-5.80) X10*6/uL Hgb 12.9 L (14.0-18.0) g/dl Hct 40.3 L (42.0-52.0) % MCV 92.9 (80.0-98.0) fL MCH 29.7 (27.0-33.0) pg MCHC 32.0 (31.0-36.0) g/dl RDW 12.3 (11.0-16.0) % Plt Count 238 (160-400) X10*3/uL MPV 10.5 (9.4-12.4) fL Immature Gran % (Auto) 0.2 (0.0-0.4) % Neut % (Auto) 61.6 (45-73) % Lymph % (Auto) 28.8 (20-40) % [place] % (Auto) 6.8 (2-11) % Eos % (Auto) 2.1 (0-4) % Baso % (Auto) 0.5 (0-2) % Lymph # (Auto) 1.8 (1.2-4.9) X10*3/uL [place] # (Auto) 0.4 (0.1-1.2) X10*3/uL Eos # (Auto) 0.1 (0.0-0.4) X10*3/uL Baso # (Auto) 0.0 (0.0-0.2) X10*3/uL Abs Immat Gran (auto) 0.01 (0.00-0.03) X10*3/uL Absolute Neuts (auto) 3.9 (2.0-8.3) x10*3/uL Absolute Nucleated RBC 0.000 (0.0-0.012) X10*3/uL Nucleated RBC % (auto) 0.0 (0.0-0.2) /100WBC Sodium 139 (135-145) mmol/L Potassium 3.8 (3.3-5.1) mmol/L Chloride 104 (96-108) mmol/L Carbon Dioxide 27 (22-29) mmol/L Anion Gap 12 (12-20) BUN 13 (9-16) mg/dL Creatinine 1.57 H (0.5-1.4) mg/dL Estim Creat Clear Calc 54.6 Estimated GFR 45 Random Glucose 230 H (60-115) mg/dL Lactic Acid 1.2 (0.5-2.0) mmol/L Calcium 9.5 (8.4-10.2) mg/dL Magnesium 2.0 (1.6-2.6) mg/dL Total Bilirubin 1.4 H (0.0-1.0) mg/dL AST 32 (5-37) U/L ALT 28 (0-40) U/L Alkaline Phosphatase 166 H (39-117) U/L Troponin I High Sens (<3.5-35.0) ng/L Total Protein 6.7 (6.5-8.0) g/dL Albumin 3.7 (3.5-5.0) g/dL Lipase 10 (8-78) U/L 10/03/ Range/Units 18:38 WBC (4.8-10.8) X10*3/uL RBC (4.60-5.80) X10*6/uL Hgb (14.0-18.0) g/dl Hct (42.0-52.0) % MCV (80.0-98.0) fL MCH (27.0-33.0) pg MCHC (31.0-36.0) g/dl RDW (11.0-16.0) % Plt Count (160-400) X10*3/uL MPV (9.4-12.4) fL Immature Gran % (Auto) (0.0-0.4) % Neut % (Auto) (45-73) % Lymph % (Auto) (20-40) % [place] % (Auto) (2-11) % Eos % (Auto) (0-4) % Baso % (Auto) (0-2) % Lymph # (Auto) (1.2-4.9) X10*3/uL [place] # (Auto) (0.1-1.2) X10*3/uL Eos # (Auto) (0.0-0.4) X10*3/uL Baso # (Auto) (0.0-0.2) X10*3/uL Abs Immat Gran (auto) (0.00-0.03) X10*3/uL Absolute Neuts (auto) (2.0-8.3) x10*3/uL Absolute Nucleated RBC (0.0-0.012) X10*3/uL Nucleated RBC % (auto) (0.0-0.2) /100WBC Sodium (135-145) mmol/L Potassium (3.3-5.1) mmol/L Chloride (96-108) mmol/L Carbon Dioxide (22-29) mmol/L Anion Gap (12-20) BUN (9-16) mg/dL Creatinine (0.5-1.4) mg/dL Estim Creat Clear Calc Estimated GFR Random Glucose (60-115) mg/dL Lactic Acid (0.5-2.0) mmol/L Calcium (8.4-10.2) mg/dL Magnesium (1.6-2.6) mg/dL Total Bilirubin (0.0-1.0) mg/dL AST (5-37) U/L ALT (0-40) U/L Alkaline Phosphatase (39-117) U/L Troponin I High Sens 7.4 (<3.5-35.0) ng/L Total Protein (6.5-8.0) g/dL Albumin (3.5-5.0) g/dL Lipase (8-78) U/L ECG Data Attestation: I personally reviewed and interpreted this ECG as follows: Interpretation: Normal sinus rhythm heart rate 75 beats per minute premature atrial complexes no acute ST T wave changes no acute ischemia Discharge Plan Discharge Clinical Impression: Weakness, Orthostatic hypotension Patient Disposition: Home, Self-Care Instructions: Hypotension (ED), Dizziness (ED) Additional Instructions: Drink plenty of fluids take protein shakes as prescribed by bariatric surgery Follow-up with your bariatric surgeon next week Prescriptions: No Action ipratropium-albuterol 0.5 mg-3 mg(2.5 mg base)/3 mL solution for nebulization 3 ml inhalation Q6H PRN (Reason: shortness of breath or wheezing) Qty: 15 RF: 0 ferrous sulfate 325 mg (65 mg iron) tablet,delayed release (DR/EC) 325 mg PO DAILY RF: 0 atorvastatin 20 mg tablet 20 mg PO BEDTIME RF: 0 acetaminophen [Tylenol Extra Strength] 500 mg tablet 1,000 mg PO Q6H PRN (Reason: pain) Qty: 30 RF: 1 tiotropium bromide 18 mcg capsule, w/inhalation device 1 cap inhalation DAILY RF: 0 fluticasone propion-salmeterol 100-50 mcg/dose blister with device 1 ea inhalation BID RF: 0 ascorbic acid (vitamin C) 250 mg tablet 250 mg PO QAM RF: 0 (DME) pen needle, diabetic 32 gauge x 5/32 needle See Rx Instructions ea .ROUTE .MEDSUPPLY Qty: 50 RF: 0 Trulicity 1.5 mg/0.5 mL pen injector 1.5 mg subcut QWEEK 30 Days Qty: 2.5 RF: 11 Lantus Solostar U-100 Insulin 100 unit/mL (3 mL) insulin pen 20 unit subcut QPM RF: 0 PMFSH Past Medical History Medical History Anxiety Arthritis Asthma COPD (chronic obstructive pulmonary disease) COVID-19 vaccine series completed Depression HLD (hyperlipidemia) Hypertension T2DM (type 2 diabetes mellitus) Venous insufficiency Vitamin D deficiency Surgical History H/O colonoscopy with polypectomy History of esophagogastroduodenoscopy (EGD) History of repair of hiatal hernia History of umbilical hernia repair Status post laparoscopic sleeve gastrectomy Family History Family History Father CVD (cardiovascular disease) Heart disease Mother Heart disease CVD (cardiovascular disease) Brother Cancer Brother Cancer Brother Heart attack Sister CVD (cardiovascular disease) Diabetes mellitus Hypertension Arthritis Social History Social History Are you a primary attending ambulatory care to a significant other at home: No Do you presently have visiting nurse or other home services: Yes ([employer]-daughter) Alcohol intake: current Alcohol intake frequency: does not drink Patient Tobacco Use Status: Former Tobacco user Quit Date: age 19 Tobacco use type: Cigarette Use of substances other than those prescribed or required for medical reasons: No Advance Directives: Yes Advance Directives on File: Yes Advance Directives Date on File: 06/27/21 service: No Current occupational status: unemployed
--- NOTE | 2021-10-03 18:17 | PC.NURSE ---
Addendum entered by Silvana Hong 10/03/21 18:21: pt also reports nausea and vomiting on and off, but pt also has ran out of his shakes that he is suppose to have after beriatric surgery Original Note: pt alert and oriented, skin appropriate for ethnicity, pt reports abd pain 07/18, also states having a headache, reports frequent falls in the last few weeks but last two weeks no falls, dizziness on and off but most of the time pt just falls down without any warning not sure if he hit head or not has been seen for the falls at [facility], also has slight sharp pain in the midsternal chest area. ns on the monitor, vs stable
--- NOTE | 2021-10-03 18:19 | ECG_ITS ---
Test Reason : DIZZY Blood Pressure : / mmHG Vent. Rate : 075 BPM Atrial Rate : 075 BPM P-R Int : 140 ms QRS Dur : 082 ms QT Int : 368 ms P-R-T Axes : 074 060 026 degrees QTc Int : 410 ms Sinus rhythm with Premature atrial complexes Nonspecific T wave abnormality Inferior leads Abnormal ECG When compared with ECG of 19-SEP-2021 11:43, Premature atrial complexes are now Present Heart rate has decreased T wave inversion less evident in Inferior leads Referred By: Issac Hyman Electronically Signed By:MAXIME BOWLING MD
[2021-10-03 18:43] LABS: Basophils Percent Auto 0.5 % (0-2); Eosinophils Absolute Auto 0.1 X10*3/uL (0.0-0.4); Eosinophils Percent Auto 2.1 % (0-4); Hematocrit 40.3 % (42.0-52.0); Hemoglobin 12.9 g/dl (14.0-18.0); Imm Gran Abs Auto 0.01 X10*3/uL (0.00-0.03); Imm Gran Pct Auto 0.2 % (0.0-0.4); Lymphocytes Absolute Auto 1.8 X10*3/uL (1.2-4.9); Lymphocytes Percent Auto 28.8 % (20-40); Mean Corpuscular Hemoglobin 29.7 pg (27.0-33.0); Mean Corpuscular Volume 92.9 fL (80.0-98.0); Mean Platelet Volume 10.5 fL (9.4-12.4); Monocytes Absolute Auto 0.4 X10*3/uL (0.1-1.2); Monocytes Percent Auto 6.8 % (2-11); Neutrophils Absolute Auto 3.9 x10*3/uL (2.0-8.3); Neutrophils Percent Auto 61.6 % (45-73); Platelet Count 238 X10*3/uL (160-400); Red Blood Count 4.34 X10*6/uL (4.60-5.80); Red Cell Distribution Width 12.3 % (11.0-16.0); White Blood Count 6.3 X10*3/uL (4.8-10.8)
[2021-10-03] MEDS: 0.9 % Sodium Chloride 1,000 ML 999 ML IVCONT (18:43)
[2021-10-03 18:44] LABS: MANUAL DIFF FLAG NO
[2021-10-03 18:55] LABS: Lactic Acid 1.2 mmol/L (0.5-2.0)
[2021-10-03] MEDS: Metoclopramide HCl 10 MG/2 ML VIAL IVPUSH (18:55)
[2021-10-03 18:59] LABS: Alanine Aminotransferase 28 U/L (0-40); Albumin Level 3.7 g/dL (3.5-5.0); Alkaline Phosphatase 166 U/L (39-117); Anion Gap 12 (12-20); Aspartate Amino Transferase 32 U/L (5-37); Bilirubin Total 1.4 mg/dL (0.0-1.0); Blood Urea Nitrogen 13 mg/dL (9-16); Calcium 9.5 mg/dL (8.4-10.2); Carbon Dioxide 27 mmol/L (22-29); Chloride 104 mmol/L (96-108); Creatinine Clr Calc Pharmacy 54.6; Estimated Glomerular Filt Rate 45; Glucose Random 230 mg/dL (60-115); Lipase 10 U/L (8-78); Potassium 3.8 mmol/L (3.3-5.1); Sodium 139 mmol/L (135-145); Total Protein 6.7 g/dL (6.5-8.0)
[2021-10-03 19:03] LABS: Troponin-I High Sensitivity 7.4 ng/L (<3.5-35.0)
[2021-10-03] MEDS: Barium Sulfate Oral (Mocha) 450 ML ORAL.SUSP PO (19:38)
--- NOTE | 2021-10-03 21:07 | PC.NURSE ---
call out to bariatric, waiting on return call
--- NOTE | 2021-10-03 21:25 | PC.NURSE ---
call returned to Dr Zavaleta from Dr. Palomo
== END 2021-10-03 22:52 | disposition home or self-care (01) ==
PROVIDERS: Emergency Provider Internal Medicine; PCP Internal Medicine
DX: R53.1 Weakness (principal); I95.1 Orthostatic hypotension; R10.9 Unspecified abdominal pain; E11.9 Type 2 diabetes mellitus without complications; I10 Essential (primary) hypertension; E78.5 Hyperlipidemia, unspecified; Z98.84 Bariatric surgery status; Z79.02 Long term (current) use of antithrombotics/antiplatelets; Z79.899 Other long term (current) drug therapy; Z79.4 Long term (current) use of insulin; Z91.11 Patient's noncompliance with dietary regimen
CPT/HCPCS: 36415; 74177; 80053; 83605; 83690; 83735; 84484; 85025; 93005; 96361; 96374; 99284; 99285; J2765

== ENCOUNTER → 2021-10-22 09:56 | Outpatient (BNVA) | payer MEDICARE, MEDICAID, SELFPAY | PROVIDERS: PCP Internal Medicine; Referring Provider Internal Medicine; Visit Provider Physician Assistant Surgical | DX: E66.9 Obesity, unspecified (principal); Z68.34 Body mass index [BMI] 34.0-34.9, adult | CPT/HCPCS: 99212 ==

== ENCOUNTER 2021-12-26 09:48 | Outpatient (REF) | payer MEDICARE, MEDICAID, SELFPAY ==
[2021-12-26 11:00] LABS: MANUAL DIFF FLAG NO
[2021-12-26 11:54] LABS: Basophils Percent Auto 0.6 % (0-2); Eosinophils Absolute Auto 0.1 X10*3/uL (0.0-0.4); Eosinophils Percent Auto 1.7 % (0-4); Hematocrit 40.7 % (42.0-52.0); Hemoglobin 13.1 g/dl (14.0-18.0); Imm Gran Abs Auto 0.02 X10*3/uL (0.00-0.03); Imm Gran Pct Auto 0.4 % (0.0-0.4); Lymphocytes Absolute Auto 1.8 X10*3/uL (1.2-4.9); Lymphocytes Percent Auto 32.7 % (20-40); Mean Corpuscular HGB Conc 32.2 g/dl (31.0-36.0); Mean Corpuscular Hemoglobin 30.5 pg (27.0-33.0); Mean Corpuscular Volume 94.9 fL (80.0-98.0); Mean Platelet Volume 10.9 fL (9.4-12.4); Monocytes Absolute Auto 0.3 X10*3/uL (0.1-1.2); Monocytes Percent Auto 4.8 % (2-11); Neutrophils Absolute Auto 3.2 x10*3/uL (2.0-8.3); Neutrophils Percent Auto 59.8 % (45-73); Platelet Count 251 X10*3/uL (160-400); Red Blood Count 4.29 X10*6/uL (4.60-5.80); Red Cell Distribution Width 12.5 % (11.0-16.0); White Blood Count 5.4 X10*3/uL (4.8-10.8)
[2021-12-26 12:17] LABS: Estimated Average Glucose 108 mg/dL; Hemoglobin A1c % 5.4 %
[2021-12-26 12:22] LABS: Estimated Average Glucose 108 mg/dL; Hemoglobin A1c % 5.4 %
[2021-12-26 12:31] LABS: Alanine Aminotransferase 28 U/L (0-40); Albumin Level 3.8 g/dL (3.5-5.0); Alkaline Phosphatase 153 U/L (39-117); Anion Gap 12 (12-20); Aspartate Amino Transferase 34 U/L (5-37); Bilirubin Total 1.1 mg/dL (0.0-1.0); Blood Urea Nitrogen 13 mg/dL (9-16); Calcium 9.5 mg/dL (8.4-10.2); Carbon Dioxide 27 mmol/L (22-29); Chloride 106 mmol/L (96-108); Cholesterol 155 mg/dL; Estimated Glomerular Filt Rate 53; Glucose Random 121 mg/dL (60-115); HDL Cholesterol 41 mg/dL; Iron 73 mcg/dL (45-160); LDL Cholesterol Calculated 97 mg/dl; Percent Iron Saturation 28 % (15-50); Potassium 4.4 mmol/L (3.3-5.1); Sodium 141 mmol/L (135-145); Total Iron Binding Capacity 260 mcg/dL (228-428); Total Protein 6.7 g/dL (6.5-8.0); Triglycerides 88 mg/dL; Unsaturated Iron Binding 187 ug/dL
[2021-12-26 12:39] LABS: Ferritin 356 ng/mL (20-250); Vitamin D 25-OH Total 37.9 ng/mL (>30)
[2021-12-26 12:48] LABS: Creatinine Urine 509.39 mg/dL
[2021-12-26 12:49] LABS: Appearance Urine HAZY; Color Urine YELLOW; Glucose Urine UA NEG (NEG); Leukocyte Esterase Urine NEG (NEG); Nitrite Urine NEG (NEG); Specific Gravity - Urine >= 1.030 (1.005-1.025); UACC Culture Trigger NO; Urine Blood NEG (NEG); Urine Ketones 5 MG/DL (NEG); Urine Protein 1+ MG/DL (NEG-TRACE)
[2021-12-26 13:04] LABS: Folate 3.9 ng/mL (> or = 4.0); Vitamin B12 359 pg/mL (200-900)
[2021-12-26 13:40] LABS: Calcium Oxalate Crystals Urine 2+ /LPF; Mucus Urine 1+ /LPF; Squamous Epithelial Cell Urine TRACE /LPF; WBC Urine 0 /HPF (0-4)
[2021-12-30 12:51] LABS: Zinc 59 mcg/dL (60-130)
[2022-01-01 13:26] LABS: Vitamin B1 <6 nmol/L (8-30)
[2022-01-02 01:31] LABS: Vitamin A 33 mcg/dL (38-98)
== END 2021-12-26 09:49 | disposition home or self-care (01) ==
LOC: HO.LAB 09:48
PROVIDERS: Internal Medicine; Surgery; PCP Internal Medicine; Referring Provider Internal Medicine; Visit Provider Physician Assistant Surgical
DX: E66.9 Obesity, unspecified (principal); Z68.31 Body mass index [BMI] 31.0-31.9, adult; E11.9 Type 2 diabetes mellitus without complications
CPT/HCPCS: 36415; 80053; 80061; 81001; 82306; 82607; 82728; 82746; 83036; 83540; 84425; 84590; 84630; 85025; 99212

== ENCOUNTER → 2022-01-23 09:52 | Outpatient (BNVA) | payer MEDICARE, MEDICAID, SELFPAY | PROVIDERS: PCP Internal Medicine; Referring Provider Internal Medicine; Visit Provider Dietitian, Registered | DX: E11.65 Type 2 diabetes mellitus with hyperglycemia (principal); E66.9 Obesity, unspecified; Z79.4 Long term (current) use of insulin; Z68.30 Body mass index [BMI] 30.0-30.9, adult | CPT/HCPCS: 97803 ==

== ENCOUNTER → 2022-04-20 11:27 | Outpatient (BNVA) | payer MEDICARE, MEDICAID, SELFPAY | PROVIDERS: PCP Internal Medicine; Visit Provider Physician Assistant Surgical | DX: E66.3 Overweight (principal); Z68.27 Body mass index [BMI] 27.0-27.9, adult; Z98.84 Bariatric surgery status | CPT/HCPCS: 99212 ==

== ENCOUNTER 2022-06-26 14:55 | Emergency (ER) | payer MEDICARE, MEDICAID, SELFPAY ==
--- NOTE | ~2022-06-26 | XR_ITS ---
EXAMINATION: XR PELVIS CLINICAL INFORMATION: Right hip pain COMPARISON: 05/14/2021 TECHNIQUE: AP view of the pelvis. FINDINGS: Moderate bilateral hip arthritis with superomedial narrowing. No significant change. No fracture or malalignment. Probable partial fusion at the superior aspects of the sacroiliac joints. XR/XR pelvis 1-2V IMPRESSION: No fracture. Bilateral hip arthritis and partial fusion of the sacroiliac joint superiorly.
--- NOTE | ~2022-06-26 | US_ITS ---
EXAMINATION: US VENOUS ULTRASOUND WITH DOPPLER LOWER EXTREMITY, RIGHT CLINICAL INFORMATION: Calf pain COMPARISON: None TECHNIQUE: Ultrasound of the deep veins is performed from the hip to the calf with compression sonography and color and pulse Doppler assessment. Spectral analysis with color-flow imaging is performed. FINDINGS: There is normal venous compression and respiratory variation and augmented flow. The visualized common femoral vein, superficial femoral vein, profunda femoral vein, popliteal vein, and the trifurcation region shows no evidence of deep venous thrombosis. There is no significant popliteal fossa cyst. If the patient's symptoms persist, followup ultrasound in 5 days 7 days might be of value to exclude proximal propagation from a non-visualized calf vein. US/US venous duplex LE RT IMPRESSION: No DVT demonstrated in the right lower extremity.
[2022-06-26 15:57] VITALS: BP 144/80; PULSE 91; RESP 16; TEMP 36.7; O2SAT 98; BMI 23.1
--- NOTE | 2022-06-26 16:23 | ED_ITS ---
HPI - Back Pain/Injury General Chief Complaint: Back Pain/Injury Stated Complaint: R leg pain Time Seen by Provider: 06/26/22 16:21 Source: patient Mode of arrival: ambulatory Limitations: other (patient poor historian ) History of Present Illness HPI Narrative: This is a 67-year-old male past medical history significant for obesity, chronic back pain, hyperlipidemia, diabetes, anxiety and depression presenting to the emergency department with complaints right lower back pain/pelvis pain and right lower extremity pain worse in the calf times a few weeks worsening over the past few days. Patient tells me that this pain is constant nature and worse with movement. He tells me he has a hard time differentiating whether these 2 are related however he tells me the right pelvic/back pain is worse with movement better at rest. He reports a constant pain to the right lower extremity he tells me this is new within the past few days, he tells me his right calf feels tender. He reports he has chronic back pain and is currently scheduled for an MRI and nerve conduction study in the near future. He tells me he is experienced symptoms like this in the past with his left lower extremity and he tells me it had something to do with his vasculature he is unsure with the problem was be tells me that they repaired vein. He reports intermittent numbness and tingling to the right lower extremity. Denies history of DVT/PE. Denies chest pain, shortness of breath, nausea, vomiting, abdominal pain, fevers, chills, headache, vision changes, urinary/bowel incontinence/retention, weakness difficulties with ambulation. Patient was able to ambulate into the room without difficulties using a walker. Patient taking tramadol with little to no relief. MD elicited complaint: back pain and other (leg pain R. ) Related Data Home Medications Medication Instructions Recorded Confirmed atorvastatin 20 mg tablet 20 mg PO BEDTIME 11/04/20 04/20/22 ferrous sulfate 325 mg (65 mg 325 mg PO DAILY 11/04/20 04/20/22 iron) tablet,delayed release ascorbic acid (vitamin C) 250 mg 250 mg PO QAM 04/23/21 04/20/22 tablet fluticasone 100 mcg-salmeterol 50 1 ea inhalation BID 04/23/21 04/20/22 mcg/dose blistr powdr for inhalation pen needle, diabetic 32 gauge x #50 ea 04/23/21 04/20/22 5/32 tiotropium bromide 18 mcg capsule 1 cap inhalation DAILY 04/23/21 04/20/22 with inhalation device tramadol 50 mg tablet 50 mg PO Q12H PRN 12/26/21 04/20/22 celebrate MVI PO DAILY 04/20/22 04/20/22 Previous Rx's Medication Instructions Recorded ipratropium 0.5 mg-albuterol 3 mg 3 ml inhalation Q6H PRN shortness 09/12/20 (2.5 mg base)/3 mL nebulization of breath or wheezing #15 mL soln dulaglutide 1.5 mg/0.5 mL 1.5 mg (0.5 mL) subcut QWEEK 30 04/23/21 subcutaneous pen injector days #2.5 mL (Trulicity) acetaminophen 500 mg tablet 1,000 mg PO Q6H PRN pain #30 tabs 06/16/21 (Tylenol Extra Strength) thiamine HCl (vitamin B1) 100 mg 100 mg PO DAILY #30 tabs 01/05/22 tablet cyclobenzaprine 5 mg tablet 5 mg PO BEDTIME PRN muscle spasm 06/26/22 #10 tabs lidocaine 5 % topical patch 1 patch topical DAILY PRN pain #15 06/26/22 ea Allergies Allergy/AdvReac Type Severity Reaction Status Date / Time aspirin [Aspirin] Allergy Mild SWELLING Verified 04/20/22 11:35 Penicillins Allergy Mild SWELLING Verified 04/20/22 11:35 Review of Systems Review of Systems: Constitutional : No Weight loss, No Fever, No Chills, No Fatigue, No Malaise ENT/Mouth : No sore throat, No Rhinorrhea Eyes: No Eye Pain, No Swelling, No Redness Cardiovascular : No Chest Pain, No SOB, No Dyspnea on Exertion, No Orthopnea, No Edema, No Palpitations Respiratory : No Cough, No Sputum, No Wheezing Gastrointestinal : No Nausea, No Vomiting, No Diarrhea, No Constipation, No abdominal Pain, No Hematochezia, No Melena Genitourinary : No Dysuria, No Urinary Frequency, No Hematuria, Musculoskeletal : No joint pain, No Myalgias, No Joint Swelling Skin : No Skin Lesions, No rash Neuro : No Weakness, No Numbness, No Dizziness, No Headache All other systems reviewed and are negative Yes all other systems are reviewed and are negative PMFSH Past Medical History Attestation statement: The following information was validated with the patient. Source: old records reviewed and nursing notes reviewed Medical History Anxiety Arthritis Asthma COPD (chronic obstructive pulmonary disease) COVID-19 vaccine series completed Depression HLD (hyperlipidemia) Hypertension T2DM (type 2 diabetes mellitus) Venous insufficiency Vitamin D deficiency Surgical History H/O colonoscopy with polypectomy History of esophagogastroduodenoscopy (EGD) History of repair of hiatal hernia History of umbilical hernia repair Status post laparoscopic sleeve gastrectomy Family History Family History Father CVD (cardiovascular disease) Heart disease Mother Heart disease CVD (cardiovascular disease) Brother Cancer Brother Cancer Brother Heart attack Sister CVD (cardiovascular disease) Diabetes mellitus Hypertension Arthritis Social History Social History Are you a primary morning caregiver to a significant other at home: No Do you presently have visiting nurse or other home services: Yes (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 Oriented X3.? No acute distress.? Head: Normocephalic, atraumatic, no step-offs or deformities Eyes: Pupils equal, round and reactive to light.? ENT: Pharynx normal.? Neck: Normal inspection.? Neck supple.? CVS: Normal heart rate and rhythm.? Pulses normal.? Respiratory: No respiratory distress.? Breath sounds normal.? Abdomen: Soft and nontender.? Skin: Skin warm and dry.? Normal skin color.? Normal skin turgor.? Extremities: No lower extremity edema.? No calf ttp, neagtive winston. 5/5 strength to bilateral upper and lower extremities 2+ patellar reflexes equal bilateral. Back: No midline tenderness, no C-spine tenderness, full range of motion, no CVA tenderness bilaterally. Patient reports pain with range of motion particularly flexion and extension of back. Neuro: Oriented X 3.? No motor deficit.? No sensory deficit. CN 2-12 intact . No saddle paresthesia, ambulating with steady gait, normal coordination. Course Reevaluation(s) Reevaluation #1: Ultrasound of the right lower extremity with no DVT. Pelvis x-ray pending Time: 18:33 Reevaluation #2: X-ray of the pelvis with no fractures. Bilateral hip arthritis and partial fusion of the sacroiliac joint superiorly. Patient reports significant impr ovement after Lidoderm patch and cyclobenzaprine. Patient ambulating with steady gait with walker. At this time patient will be discharged home advised return with new or worsening symptoms Time: 20:18 MDM - Back Pain/Injury MDM Narrative Medical decision making narrative: 1625 67-year-old male presents with right lower back pain, and RLE pain w/ constant calf discomfort. Reports he has chronic back issues, scheduled to have an MRI and nerve conduction test in the near future. Is taking tramadol without relief Physical examination significant for pain with range of motion particularly with flexion and extension. 2+ patellar reflexes equal bilateral, no saddle pa resthesias. Ambulating with steady gait normal coordination with walker. Neuro exam nonfocal. No midline tenderness. Regular rate and rhythm. Lungs clear. Abdomen soft nontender nondistended. Likely sciatica or musculoskeletal pain unlikely epidural abscess, cauda equina. Will rule out DVT although less likely Plan at this time Medical Records Attestation: I reviewed the patient's medical records. Lab Data Attestation: I reviewed the patient's lab results. Critical Care Time Critical Care Time Critical Care Time: No Discharge Plan Discharge Clinical Impression: Lower extremity pain, right, Back pain, Osteoarthritis Patient Disposition: Home, Self-Care Additional Instructions: Take your medications as prescribed. If you were prescribed antibiotics today, it is important that you take your medication to their entirety, do not skip any doses, do not finish them early. Follow-up with your primary care provider this week. Return to the emergency department with new or worsening symptoms. Such as fevers, chills, chest pain, shortness of breath, nausea, vomiting, dizziness, headache, vision changes, lethargy In case of emergency call 911 Cyclobenzaprine as a muscle relaxer that was sent to the pharmacy, it can make you drowsy please do not drive or operate machinery while taking this. I recommend he take this at night. Your x-ray and ultrasound looked okay. He may require an MRI for further evaluation and treatment. [place]ickson alejo medicamentos seg?n lo prescrito. Si le recetaron antibi?ticos hoy, es importante que tome chapa medicamento en chapa totalidad, no se salte ninguna dosis, no los termine antes de tiempo. Seguimiento con chapa proveedor de atenci?n primaria esta semana. Regrese al departamento de emergencias con s?ntomas nuevos o que empeoran. [place] fiebre, escalofr?os, dolor de pecho, dificultad para respirar, n?useas, v?mitos, mareos, dolor de naheed, cambios en la visi?n, letargo En shira de emergencia llama al 911 Cyclobenzaprine berlin un relajante muscular que se envi? a la farmacia, puede causarle somnolencia. No conduzca ni maneje maquinaria mientras lo gregg. Le recomiendo que tome esto por la noche. Chapa radiograf?a y ultrasonido se ve?an clinton. Es posible que necesite lyudmila resonancia magn?neftaly para lyudmila evaluaci?n y tratamiento adicionales. US/US venous duplex LE RT IMPRESSION: No DVT demonstrated in the right lower extremity. If the patient's symptoms persist, followup ultrasound in 5 days 7 days might be of value to exclude proximal propagation from a non-visualized calf vein. XR/XR pelvis 1-2V IMPRESSION: No fracture. Bilateral hip arthritis and partial fusion of the sacroiliac joint superiorly. Prescriptions: New lidocaine 5 % adhesive patch,medicated 1 patch topical DAILY PRN (Reason: pain) Qty: 15 0RF Rx Instructions: leave on most painful area for up to 12 hrs cyclobenzaprine 5 mg tablet 5 mg PO BEDTIME PRN (Reason: muscle spasm) Qty: 10 0RF No Action thiamine HCl (vitamin B1) 100 mg tablet 100 mg PO DAILY Qty: 30 2RF ipratropium-albuterol 0.5 mg-3 mg(2.5 mg base)/3 mL solution for nebulization 3 ml inhalation Q6H PRN (Reason: shortness of breath or wheezing) Qty: 15 0RF ferrous sulfate 325 mg (65 mg iron) tablet,delayed release (DR/EC) 325 mg PO DAILY atorvastatin 20 mg tablet 20 mg PO BEDTIME acetaminophen [Tylenol Extra Strength] 500 mg tablet 1,000 mg PO Q6H PRN (Reason: pain) Qty: 30 1RF tramadol 50 mg tablet 50 mg PO Q12H PRN tiotropium bromide 18 mcg capsule, w/inhalation device 1 cap inhalation DAILY fluticasone propion-salmeterol 100-50 mcg/dose blister with device 1 ea inhalation BID ascorbic acid (vitamin C) 250 mg tablet 250 mg PO QAM (DME) pen needle, diabetic 32 gauge x 5/32 needle See Rx Instructions .ROUTE .MEDSUPPLY Qty: 50 Rx Instructions: As directed Trulicity 1.5 mg/0.5 mL pen injector 1.5 mg subcut QWEEK 30 Days Qty: 2.5 11RF celebrate MVI PO DAILY Referrals: [facility] [Primary Care Provider] - 2 days Stand Alone Forms: Work/School Release
[2022-06-26] MEDS: Lidocaine 4 % Patch ADH..PATCH 1 PATCH TRANSDERMA (16:34)
[2022-06-26] MEDS: Cyclobenzaprine HCl 10 MG TABLET PO (16:34)
== END 2022-06-26 20:35 | disposition home or self-care (01) ==
PROVIDERS: Emergency Provider Emergency Medicine
DX: M54.50 Low back pain, unspecified (principal); R60.0 Localized edema; R10.2 Pelvic and perineal pain; M79.604 Pain in right leg; M17.0 Bilateral primary osteoarthritis of knee; Z79.899 Other long term (current) drug therapy; Z87.891 Personal history of nicotine dependence
CPT/HCPCS: 72170; 93971; 99283; 99284

== ENCOUNTER 2022-07-01 10:16 | Outpatient (REF) | payer MEDICARE, MEDICAID, SELFPAY ==
--- NOTE | ~2022-07-01 | MR_ITS ---
EXAMINATION: MR BRAIN WITHOUT CONTRAST CLINICAL INFORMATION: Mild memory impairment. Gait instability. Urinary incontinence. Normal pressure hydrocephalus. COMPARISON: CT head from 10/25/2011. TECHNIQUE: MRI of the brain was obtained using routine sequences without contrast. FINDINGS: No focal restricted diffusion is demonstrated to suggest acute or subacute cerebral ischemia. No evidence of acute or chronic hemorrhagic products on heme-sensitive imaging. Scattered periventricular and deep white matter T2 FLAIR hyperintensities consistent with mild underlying microangiopathy. Proportional prominence of the ventricles and sulcal spaces without evidence of obstructive hydrocephalus. No abnormal mass effect. No midline shift. The sella turcica is expanded with flattening of the pituitary gland. Normal positioning of the cerebellar tonsils. Normal arterial and venous vascular flow voids are present. Normal, homogeneous marrow signal. Moderate degenerative spondyloarthropathy of the visualized upper cervical spine. Mild mucosal thickening of the paranasal sinuses. No signal abnormalities within the mastoids. Bilateral lens extractions. MR/MR head/brain wo con IMPRESSION: 1. No acute intracranial abnormalities. 2. Mild underlying microangiopathy and generalized cerebral volume loss. No evidence of obstructive hydrocephalus.
== END 2022-07-01 10:17 | disposition home or self-care (01) ==
LOC: HO.MRI 10:16
PROVIDERS: Visit Provider Internal Medicine
DX: R29.898 Other symptoms and signs involving the musculoskeletal system (principal); R26.81 Unsteadiness on feet
CPT/HCPCS: 70551

== ENCOUNTER → 2022-07-28 09:24 | Outpatient (BNVA) | payer MEDICARE, MEDICAID, SELFPAY | PROVIDERS: PCP Internal Medicine; Visit Provider Surgery Vascular Surgery | DX: I83.12 Varicose veins of left lower extremity with inflammation (principal) | CPT/HCPCS: 99212 ==

== ENCOUNTER 2022-09-16 14:46 | Outpatient (REF) | payer OTHER, SELFPAY ==
--- NOTE | 2022-09-16 10:00 | EMG_ITS ---
Please see scanned EMG / Nerve Conduction Report. MTDD
== END 2022-09-16 14:47 | disposition home or self-care (01) ==
LOC: HO.NEURO 14:46
PROVIDERS: Visit Provider Internal Medicine
DX: R29.898 Other symptoms and signs involving the musculoskeletal system (principal)
CPT/HCPCS: 95886; 95910

== ENCOUNTER 2022-09-22 09:31 | Outpatient (REF) | payer OTHER, SELFPAY ==
--- NOTE | ~2022-09-22 | US_ITS ---
EXAMINATION: US VENOUS ULTRASOUND WITH DOPPLER LOWER EXTREMITY, RIGHT CLINICAL INFORMATION: Varicose veins of lower extremity without inflammation COMPARISON: Ultrasound 06/26/2022 TECHNIQUE: Ultrasound of the deep veins is performed from the hip to the calf with compression sonography and color and pulse Doppler assessment. Spectral analysis with color-flow imaging is performed. FINDINGS: There is hypoechoic mobile thrombus centrally within the right common femoral vein, distal to the saphenofemoral junction. Hypoechoic appearance of the thrombus is suggestive of acute thrombus. No thrombus is seen throughout the remainder of the femoral vein. There is normal compressibility of variability throughout the remainder of the femoral vein, popliteal vein, and midcalf venous segments junction There is no significant popliteal fossa cyst. US/US venous duplex LE RT IMPRESSION: There is acute hypoechoic, mobile thrombus within the right common femoral vein just distal to the saphenofemoral junction. No other thrombus is seen throughout the right lower extremity. Findings were communicated with the referring physician's office by the rad technologist at 9:51 AM and the patient was sent to the emergency department.
== END 2022-09-22 09:32 | disposition home or self-care (01) ==
LOC: HO.US 09:31
PROVIDERS: Visit Provider Internal Medicine
DX: I83.12 Varicose veins of left lower extremity with inflammation (principal); E04.9 Nontoxic goiter, unspecified; R00.0 Tachycardia, unspecified
CPT/HCPCS: 93971

== ENCOUNTER 2022-09-22 10:05 | Emergency (ER) | payer OTHER, SELFPAY ==
--- NOTE | ~2022-09-22 | CT_ITS ---
EXAMINATION: CT ANGIOGRAM OF THE CHEST WITH AND WITHOUT CONTRAST (CT PULMONARY ANGIOGRAM FOR PE) CLINICAL INFORMATION: Reason for Exam intermittent chest pain and + RLE DVT COMPARISON: None TECHNIQUE: Prior to contrast administration, noncontrast localization images were obtained. Subsequently, multidetector volumetric imaging was performed from the thoracic inlet to below the diaphragms following the administration of 80 mL Omnipaque 350 intravenous contrast. No contrast reaction reported Sagittal, coronal, and MIP oblique sagittal reformatted images were obtained on the CT workstation, uploaded to PACS, and reviewed. This CT examination was performed using dose optimization techniques as appropriate, variously including the following: *Automated exposure control *Adjustment of mA and/or kV according to patient size (this includes techniques or standardized protocols for targeted exams where dose is matched to indication/reason for exam; i.e. extremities or head) *Use of iterative reconstruction technique Total exam dose-length product 2 3 mGy-cm FINDINGS: QUALITY OF STUDY/CONTRAST BOLUS: Satisfactory. PULMONARY ARTERIES: There are small filling defects in the lingular in the inferior branch of left pulmonary artery consistent with small PE.. The main, right and left pulmonary arteries are patent. THORACIC AORTA: No aneurysm or dissection. LUNG: The lungs are well-expanded and clear acute pneumonic process. No pulmonary nodule, mass or consolidation seen. PLEURA: No pleural effusion or pneumothorax. MEDIASTINUM: Normal heart size. No pericardial effusion. No hilar or mediastinal lymphadenopathy. No evidence of septal bowing or right heart strain. CHEST WALL/AXILLA: No axillary or internal mammary lymphadenopathy. OSSEOUS STRUCTURES: No aggressive lytic or sclerotic process seen. There is ventral spondylosis mid and lower dorsal spine. UPPER ABDOMEN: Visualized liver, spleen and pancreas is unremarkable. Suspect hyperdense gravel or stones in the gallbladder. No reflux of contrast into the hepatic veins to suggest elevated right heart pressures. CT/CT angio chest PE protocol IMPRESSION: Inferior and lingular branch of left pulmonary artery thrombus consistent with PE. Positive results were conveyed to Shashank Gomez by phone to ER at 3:42 PM. VTE: positive
--- NOTE | 2022-09-22 10:25 | ECG_ITS ---
Test Reason : DVT Blood Pressure : / mmHG Vent. Rate : 059 BPM Atrial Rate : 059 BPM P-R Int : 142 ms QRS Dur : 074 ms QT Int : 402 ms P-R-T Axes : 056 074 060 degrees QTc Int : 397 ms Sinus bradycardia Otherwise normal ECG When compared with ECG of 03-OCT-2021 18:33, Premature atrial complexes are no longer Present Nonspecific T wave abnormality, improved in Inferior leads Referred By: Patricia Encarnacion Electronically Signed By:MAXIME BOWLING MD
[2022-09-22 10:33] VITALS: BP 137/74; PULSE 67; RESP 18; O2SAT 100; BMI 23.5
--- OUTSIDE RECORDS SUMMARY | 2022-09-22 10:33 | XMS_ITS | Continuity of Care Document ---
:1955 Author Organization [facility] Address [address] [place] [phone]- Care Team Providers Name Role Phone Debra Zheng MD Primary Care Physician Encounter [facility] Date(s): 02/26/22 - 02/26/[address] [phone]- Encounter Diagnosis Suicidal thoughts (Final) - 02/26/22 Discharge Disposition: A-D/C Home Attending Physician: Dorcas Tinsley MD Admitting Physician: Dorcas Tinsley MD Referring Physician: Not on Staff, Referring MD Allergies, Adverse Reactions, Alerts Substance Reaction Severity Status penicillin Active aspirin Active Medications acetaminophen 650 mg oral tablet, extended release 2 tablet = 1,300 mg, By Mouth, Every 8 hours, PRN as needed for fever, # 24 tablet, 0 Refills, Maintenance, 03/08/19 14:32:19 EDT, ER Tablet Start Date: 03/08/19 Status: OrderedActos 45 mg oral tablet 1 tablet = 45 mg, By Mouth, Daily, 0 Refills, Maintenance, 03/08/19 14:32:30 EDT Start Date: 03/08/19 Status: OrderedAdvair Diskus 100 mcg-50 mcg inhalation powder 1, puffs, Inhalation, 2 times a day, Refills 0, Maintenance, 03/08/19 14:32:51 EDT Start Date: 03/08/19 Status: Orderedalbuterol-ipratropium 3 mg-0.5 mg/3 ml inhalation solution 3 mL, Neb, 4 times a day, 0 Refills, Maintenance, 03/08/19 14:35:22 EDT Start Date: 03/08/19 Status: OrderedAlcohol Pads Maintenance, 03/08/19 14:33:05 EDT, Compound Start Date: 03/08/19 Status: Orderedascorbic acid 250 mg oral tablet 1 tablet = 250 mg, By Mouth, Daily, # 30 tablet, 0 Refills, Maintenance, 02/16/22 10:22:00 EDT, Tablet, Partial fill upon patient request if the prescription is for a schedule II opioid drug. Start Date: 02/16/22 Status: OrderedCompression Stockings See Instructions, # 1 pair, Refills 0, Tot. Refills 0, Maintenance, surgical, knee length 20-30 mm Hg, 03/08/19 9:45:40 EDT, Compound Start Date: 03/08/19 Status: OrderedDocusate/Senna Tablet 1 tablet, By Mouth, 2 times a day, PRN Constipation, 0 Refills, Maintenance, 02/18/22 15:18:00 EDT, Tablet, Partial fill upon patient request if the prescription is for a schedule II opioid drug. Start Date: 02/18/22 Status: OrderedFerrous Sulfate ER 325 mg, By Mouth, Daily in AM, Refills 0, Maintenance, 02/16/22 10:21:00 EDT, Partial fill upon patient request if the prescription is for a schedule II opioid drug. Start Date: 02/16/22 Status: Orderedgabapentin 300 mg oral capsule 300 mg, 1, capsule, By Mouth, Daily, at bedtime, Refills 0, Maintenance, 03/08/19 14:34:28 EDT Start Date: 03/08/19 Status: Orderedlisinopril 5 mg oral tablet 5 mg, 1, tablet, By Mouth, Daily, Refills 0, Maintenance, 03/08/19 14:36:07 EDT Start Date: 03/08/19 Status: OrderedLoratadine 10 mg, By Mouth, Daily, Refills 0, Maintenance, 02/16/22 10:20:00 EDT, Partial fill upon patient request if the prescription is for a schedule II opioid drug. Start Date: 02/16/22 Status: OrderedMiraLax Powder 1 pack/packet = 17 Gm, By Mouth, Daily, PRN Constipation, 0 Refills, Maintenance, 02/18/22 15:20:00 EDT, Powder, Partial fill upon patient request if the prescription is for a schedule II opioid drug. Start Date: 02/18/22 Status: Orderedomeprazole 20 mg oral delayed release tablet 1 tablet = 20 mg, By Mouth, Daily, 0 Refills, Maintenance, 03/08/19 14:36:50 EDT Start Date: 03/08/19 Status: OrderedProAir HFA 90 mcg/inh inhalation aerosol with adapter 2, puffs, Inhalation, 4 times a day, Refills 0, Maintenance, 03/08/19 14:38:01 EDT Start Date: 03/08/19 Status: Orderedrepaglinide 2 mg oral tablet 1 tablet = 2 mg, By Mouth, 3 times a day before meals, 0 Refills, Maintenance, 03/08/19 14:38:32 EDT Start Date: 03/08/19 Status: Orderedsertraline 100 mg oral tablet 1 tablet = 100 mg, By Mouth, Daily, 0 Refills, Maintenance, 03/08/19 14:38:45 EDT Start Date: 03/08/19 Status: OrderedSpiriva HandiHaler 18 mcg Inhalation Capsule 1 capsule = 18 mcg, Inhalation, Daily, 0 Refills, Maintenance, 03/08/19 14:39:42 EDT Start Date: 03/08/19 Status: Orderedthiamine 100 mg oral tablet 100 mg, 1, tablet, By Mouth, Daily, Refills 0, Maintenance, 02/18/22 15:20:00 EDT, Partial fill uponpatient request if the prescription is for a schedule II opioid drug. Start Date: 02/18/22 Status: OrderedTramadol = 50 mg, By Mouth, 0 Refills, Maintenance, 02/16/22 10:21:00 EDT, Partial fill upon patient request if the prescription is for a schedule II opioid drug. Start Date: 02/16/22 Status: OrderedtraZODone 100 mg oral tablet 100 mg, 1, tablet, By Mouth, 3 times a day, Refills 0, Maintenance, 03/08/19 14:39:53 EDT Start Date: 03/08/19 Status: OrderedTrulicity Pen 1.5 mg/0.5 mL subcutaneous solution 0.5 mL = 1.5 mg, Subcutaneous Injection, Every week, 0 Refills, Maintenance, 02/16/22 10:20:00 EDT, Solution, Partial fill upon patient request if the prescription is for a schedule II opioid drug. Start Date: 02/16/22 Status: Orderedvitamin A 92394 u oral capsule By Mouth, Daily, Refills 0, Maintenance, 02/18/22 15:20:00 EDT, Partial fill upon patient request ifthe prescription is for a schedule II opioid drug. Start Date: 02/18/22 Status: Ordered Problem List Condition Effective Dates Status Health Status Informant Obese class I(Confirmed) Active Vital Signs Most recent to oldest [Reference Range]: 1 2 Height 165 cm 165 cm (02/26/22 5:36 PM) (02/26/22 2:55 PM) Weight 92 kg 92 kg (02/26/22 5:36 PM) (02/26/22 2:55 PM) Oxygen Saturation [94-100 %] 100 % 100 % (02/26/22 5:36 PM) (02/26/22 2:55 PM) Pulse Rate [55-90 bpm] 90 bpm 82 bpm (02/26/22 5:36 PM) (02/26/22 2:55 PM) Body Mass Index [18.5-24.99] 33.79 *>HHI* (02/26/22 5:36 PM) Blood Pressure [90-138/55-84 mm Hg] 129/79 mm Hg 135/ 69 mm Hg (02/26/22 5:36 PM) (02/26/22 2:55 PM) Respiratory Rate [16-30 br/min] 17 br/min 16 br/mi n (02/26/22 5:36 PM) (02/26/22 2:55 PM) Temperature [96.8-100.4 DegF] 98.8 DegF 98.2 DegF (02/26/22 5:36 PM) (02/26/22 2:55 PM) Liters per Minute 0 L/min (02/26/22 5:36 PM) Mode of Delivery (Oxygen) Room air Room air (02/26/22 5:36 PM) (02/26/22 2:55 PM) Blood pressure sites Arm, right (02/26/22 5:36 PM) Temperature Route Oral Oral (02/26/22 5:36 PM) (02/26/22 2:55 PM) Dry Weight 92 kg 92 kg (02/26/22 5:36 PM) (02/26/22 2:55 PM) Social History Social History Type Response Smoking Status Former smoker, quit more rosy n 30 days ago; Exposure to Secondhand Smoke: No entered on: 02/16/22 Sex
--- OUTSIDE RECORDS SUMMARY | 2022-09-22 10:33 | XMS_ITS | Continuity of Care Document ---
:1955 Author Organization [facility] Address [address] [place] [address]- Care Team Providers Name Role Phone Norm BELLA, Debra Shrestha Primary Care Physician Encounter 03/06/22 - 04/22/22 [facility] [address] [place] [id number]- Discharge Disposition: CLIENT NO LONGER REQUIRES SKILLED CARE Allergies, Adverse Reactions, Alerts Substance Reaction Severity [...] drug. Start Date: 02/16/22 Status: Orderedvitamin A 23173 u oral capsule By Mouth, Daily, Refills 0, Maintenance, 02/18/22 15:20:00 EDT, Partial fill upon patient request ifthe prescription is for a schedule II opioid drug. Start Date: 4/13/22 Status: Ordered Problem List Condition Effective Dates Status Health Status Informant Obese class I(Confirmed) Active Social History Social History Type Response Smoking Status Former smoker, quit more rosy n 30 days ago; Exposure to Secondhand Smoke: No entered on: 02/16/22 Sex
--- OUTSIDE RECORDS SUMMARY | 2022-09-22 10:34 | XMS_ITS | Continuity of Care Document ---
:1955 Author Organization [facility] Address [address] [place] [id number]- Care Team Providers Name Role Phone Norm BELLA, Debra Shrestha Primary Care Physician [place] [facility] [place] - 02/18/[address] [address]- Encounter Diagnosis Fibula fracture (Final) - 02/16/22 Discharge Disposition: A-Transfer SNF Attending Physician: Benton Spain MD Admitting Physician: Ilan Goyal MD Referring Physician: Not on Staff, Referring [...] 03/08/19 14:36:50 EDT Start Date: 03/08/19 Status: OrderedoxyCODONE 5 mg oral tablet 5 mg, 1, tablet, By Mouth, Every 4 hours, PRN, Further refill as per PCP or rehab center, # 20 tablet, Refills 0, Tot. Refills 0, Acute 02/21/22 23:59:00 EDT, Pain , Severe, 02/18/22 15:19:00 EDT, Do Not Route, Partial fill upon patient request if the... Start Date: 02/18/22 Stop Date: 02/21/22 Status: OrderedoxyCODONE 5 mg oral tablet 5 mg, Tablet, By Mouth, Every 4 hours, PRN for Pain , Severe, Routine, 02/16/22 3:43:00 EDT Start Date: 02/16/22 Stop Date: 02/19/22 Status: DiscontinuedProAir HFA 90 mcg/inh inhalation aerosol with adapter [...] drug. Start Date: 02/16/22 Status: Orderedvitamin A 82854 u oral capsule By Mouth, Daily, Refills 0, Maintenance, 02/18/22 15:20:00 EDT, Partial fill upon patient request ifthe prescription is for a schedule II opioid drug. Start Date: 02/18/22 Status: Ordered Results Radiology Reports Exam Date Time Procedure Performing Provider Status 02/16/22 12:04 AM XR Hip w/Pelvis 2-3 View Left Lia Thomas; Auth (Verified) Notes:(XR Hip w/Pelvis 2-3 View Left) Reason For Exam: TraumaRESULT: XR Hip w/Pelvis 2-3 View Left XR Hip w/Pelvis 3 View Left Hx of Present Illness: via [place] interp - pt sts he had bariatric surg. this past June and sincesurg has been having syncopal episodes, provider is aware, pt had another syncopal event while walking up stairs, fell backwards down several steps with +head strike LOC, pt is; Reason: Trauma; Clinical Question(s): Fracture COMPARISON: None. FINDINGS: There is no fracture or dislocation. Moderate degenerative changes of the bilateral hips and sacroiliac joints. Focus of presumably colonic gas/stool obscures the superior pubic symphysis, comparison made to same day CT demonstrates no fracture. Moderate multilevel degenerative changes of visualized spine. Normal soft tissues. IMPRESSION: No acute fracture. I have personally reviewed the images and I agree with this report. WSN: [id number] Ordering Physician: Dorcas Tinsley Dictated By: James Russo DO Dictated Date/Time: 02/16/22 9:09 am Reviewed By: Javon Aj MD Signed By: Javon Aj MD Signed Date/Time: 02/16/22 9:14 am Transcribed By: CAMPBELL Transcribed Date/Time: 02/16/22 8:55 am Exam Date Time Procedure Performing Provider Status 02/16/22 12:04 AM Ankle Min 3 Views Left Gayle Thomas (V erified) Notes:(Ankle Min 3 Views Left) Reason For Exam: TraumaRESULT: Ankle Min 3 Views Left Ankle 3 Views Left Hx of Present Illness: via [place] interp - pt sts he had bariatric surg. this past June and sincesurg has been having syncopal episodes, provider is aware, pt had another syncopal event while walking up stairs, fell backwards down several steps with +head strike LOC, pt is; Reason: Trauma; Clinical Question(s): Fracture COMPARISON: None. FINDINGS: Evidence of minimally displaced oblique fractures of the distal fibular diaphysis with component of callus formation, likely subacute fracture. Intact ankle mortise and talar dome. Mild arthritic changes. Small dorsal and plantar calcaneal spurs noted. Mild ankle soft tissue swelling with superimposed generalized edema of the visualized soft tissues. IMPRESSION: Minimally displaced oblique fractures of the distal fibular diaphysis with component of callus formation likely representing subacute fracture. I have personally reviewed the images and I agree with this report. WSN: [id number] Ordering Physician: Dorcas Tinsley Dictated By: James Russo DO Dictated Date/Time: 02/16/22 9:08 am Reviewed By: Javon Aj MD Signed By: Javon Aj MD Signed Date/Time: 02/16/22 9:13 am Transcribed By: CAMPBELL Transcribed Date/Time: 02/16/22 8:52 am Exam Date Time Procedure Performing Provider Status 02/16/22 12:04 AM Chest Single Frontal View Gayle Thomas (Verified) Notes:(Chest Single Frontal View) Reason For Exam: Pain;Other:RESULT: Chest Single Frontal View Chest Single Frontal View HPI: Via medical interpreter - patient states he had bariatric surg. This past june and since surghas been having syncopal episodes, provider is aware, patient had another syncopal event while walking up stairs, fell backwards down several steps with +head strike LOC. INDICATION: Pain. CLINICAL QUESTION: Fracture, pneumothorax, pulmonary contusion COMPARISON: CT thoracic spine 02/15/2022. FINDINGS: LINES AND TUBES: None. LUNGS AND PLEURA: Clear lungs. Normal pulmonary vascularity. No pleural effusion. No pneumothorax. HEART, MEDIASTINUM AND MARTY: Heart is normal in size. Normal mediastinal and hilar contour. BONES AND SOFT TISSUES: No displaced fracture. IMPRESSION: No acute abnormality. I have personally reviewed the images and I agree with this report. WSN: [id number] Ordering Physician: Dorcas Tinsley Dictated By: Jay Lawler MD Dictated Date/Time: 02/16/22 7:48 am Reviewed By: Javon Aj MD Signed By: Javon Aj MD Signed Date/Time: 02/16/22 7:53 am Transcribed By: CAMPBELL Transcribed Date/Time: 02/16/22 0:08 am Vital Signs Most recent to oldest 1 2 3 [Reference Range]: Height 184 cm 184 cm 184 cm (02/18/22 4:54 PM) (02/18/22 3:41 PM) (02/18/22 6:5 2 AM) Weight 90.2 kg (02/16/22 2:16 AM) Oxygen Saturation [94-100 %] 100 % 99 % 99 % (02/18/22 4:54 PM) (02/18/22 3:41 PM) (02/18/22 6:5 2 AM) Pulse Rate [55-90 bpm] 81 bpm 85 bpm 75 bpm (02/18/22 4:54 PM) (02/18/22 3:41 PM) (02/18/22 6:5 2 AM) Body Mass Index [18.5-24.99] 26.64 *H* (02/16/22 2:16 AM) Blood Pressure [90-138/55-84 mm 124/62 mm Hg 116/62 mm Hg 113/55 mm Hg Hg] (02/18/22 4:54 PM) (02/18/22 3:41 PM) (02/18/22 6:5 2 AM) Respiratory Rate [16-30 br/min] 17 br/min 18 br/min 16 br/min (02/18/22 4:54 PM) (02/18/22 3:41 PM) (02/18/22 2:2 3 PM) Temperature [96.8-100.4 DegF] 98.2 DegF 99.0 DegF 98 .1 DegF (02/18/22 4:54 PM) (02/18/22 3:41 PM) (02/18/22 6:5 2 AM) Mode of Delivery (Oxygen) Room air Room air Room a ir (02/18/22 4:54 PM) (02/18/22 3:41 PM) (02/18/22 6:5 2 AM) Blood pressure sites Arm, left Arm, right Arm, right (02/18/22 4:54 PM) (02/18/22 3:41 PM) (02/18/22 6:5 2 AM) Temperature Route Oral Oral Oral (02/18/22 4:54 PM) (02/18/22 3:41 PM) (02/18/22 6:5 2 AM) Dry Weight 90.2 kg (02/16/22 2:16 AM) Weight Obtained Via Bed scale (02/16/22 2:16 AM) Dry Weight Obtained Via Bed scale (02/16/22 2:16 AM) Social History Social History Type Response Smoking Status Former smoker, quit more rosy n 30 days ago; Exposure to Secondhand Smoke: No entered on: 02/16/22 Sex
--- OUTSIDE RECORDS SUMMARY | 2022-09-22 10:34 | XMS_ITS | Continuity of Care Document ---
:1955 Author Organization [facility] Address [address] [place] [id number]- Care Team Providers Name Role Phone Not on Staff, PCP Primary Care Physician Unavailable [place] [facility] [place] 07/18/22 - 07/19/[address] [address]- Discharge Disposition: A-D/C Home Attending Physician: Marguerite Goddard MD Admitting Physician: Marguerite Goddard MD Referring Physician: Not on Staff, Referring MD Allergies, Adverse Reactions, Alerts Substance Reaction Severity Status penicillin Active aspirin Active Medications acetaminophen 650 mg oral tablet, extended release 2 tablet = 1,300 mg, By Mouth, Every 8 hours, PRN as needed for fever, # 24 tablet, 0 Refills, Maintenance, 03/08/19 14:32:19 EDT, ER Tablet Start Date: 03/08/19 Status: Orderedalbuterol-ipratropium 3 mg-0.5 [...] II opioid drug. Start Date: 02/16/22 Status: OrderedDocusate/Senna Tablet 1 tablet, By Mouth, 2 times a day, PRN Constipation, 0 Refills, Maintenance, 02/18/22 15:18:00 EDT, Tablet, Partial fill upon patient request if the prescription is for a schedule II opioid drug. Start Date: 02/18/22 Status: OrderedFerrous Sulfate ER Refills 0, Maintenance, 07/09/22 21:07:00 EDT, Partial fill upon patient request if the prescriptionis for a schedule II opioid drug. Start Date: 07/09/22 Status: Orderedgabapentin 300 mg oral capsule 300 mg, 1, capsule, By Mouth, Daily at bedtime, Refills 0, Maintenance, 07/09/22 21:08:00 EDT, Partial fill upon patient request if the prescription is for a schedule II opioid drug. Start Date: 07/09/22 Status: OrderedLoratadine 10 mg, By Mouth, Daily, Refills 0, Maintenance, 07/09/22 21:07:00 EDT, Partial fill upon patient request if the prescription is for a schedule II opioid drug. Start Date: 07/09/22 Status: Orderedomeprazole 20 mg oral enteric coated capsule 1 capsule = 20 mg, By Mouth, Daily, # 14 capsule, 0 Refills, Maintenance, 07/19/22 15:57:00 EDT, EC Capsule, [facility], Partial fill upon patient request if the prescription is fora schedule II opioid drug., 177.8, cm, 07/12/22 7... Start Date: 07/19/22 Stop Date: 08/02/22 Status: OrderedProAir HFA 90 mcg/inh inhalation aerosol with adapter 2, puffs, Inhalation, 4 times a day, Refills 0, Maintenance, 03/08/19 14:38:01 EDT Start Date: 03/08/19 Status: OrderedSpiriva HandiHaler 18 mcg inhalation capsule USE 1 CAPSULE FOR INHALATION ONCE A DAY DO NOT SWALLOW CAPSULE Start Date: 07/12/22 Status: OrderedtraMADol 50 mg oral tablet 1 tablet = 50 mg, By Mouth, Every 12 hours, PRN for pain, # 30 tablet, 0 Refills, Maintenance, 07/12/22 14:14:00 EDT, Tablet, Partial fill upon patient request if the prescription is for a schedule II opioid drug. Start Date: 07/12/22 Status: OrderedtraZODone 100 mg oral tablet 100 mg, 1, tablet, By Mouth, Daily at bedtime, # 180 tablet, Refills 0, Maintenance, 07/12/22 14:15:00 EDT, Partial fill upon patient request if the prescription is for a schedule II opioid drug. Start Date: 07/12/22 Status: Ordered Problem List Condition Effective Dates Status Health Status Informant COPD without exacerbation(Confirmed) Active History of gastric bypass(Confirmed) Active HLD (hyperlipidemia)(Confirmed) Active HTN (hypertension)(Confirmed) Active DM2 (diabetes mellitus, type Active 2)(Confirmed) Vital Signs Most recent to oldest 1 2 3 [Reference Range]: Oxygen Saturation [94-100 %] 100 % 100 % 100 % (07/19/22 11:41 AM) (07/19/22 8:44 AM) (07/19/22 6: 21 AM) Pulse Rate [55-90 bpm] 79 bpm 90 bpm 82 bpm (07/19/22 11:41 AM) (07/19/22 8:44 AM) (07/19/22 6: 21 AM) Blood Pressure [90-138/55-84 146/77 mm Hg 139/83 mm Hg 110 /77 mm Hg mm Hg] *H* *H* (07/19/22 6:21 AM ) (07/19/22 11:41 AM) (07/19/22 8:44 AM) Respiratory Rate [16-30 16 br/min 18 br/min 20 br/mi n br/min] (07/19/22 11:41 AM) (07/19/22 8:44 AM) (07/19/22 3: 03 AM) Temperature [96.8-100.4 DegF] 97.8 DegF 98.0 DegF 98 DegF (07/19/22 11:41 AM) (07/19/22 8:44 AM) (07/19/22 6: 21 AM) Mode of Delivery (Oxygen) Room air Room air Room a ir (07/19/22 11:41 AM) (07/19/22 8:44 AM) (07/19/22 6: 21 AM) Blood pressure sites Arm, left Arm, right Arm, left (07/19/22 11:41 AM) (07/19/22 8:44 AM) (07/19/22 6: 21 AM) Temperature Route Oral Oral Oral (07/19/22 11:41 AM) (07/19/22 8:44 AM) (07/19/22 6: 21 AM) Social History Social History Type Response Smoking Status Former smoker, quit more rosy n 30 days ago; Exposure to Secondhand Smoke: No entered on: 02/16/22 Sex Care Team PersonnelName: Not on Staff, PCP
--- OUTSIDE RECORDS SUMMARY | 2022-09-22 10:34 | XMS_ITS | Continuity of Care Document ---
:1955 Author Organization [facility] Address [address] [place] [phone]- Care Team Providers Name Role Phone Not on Staff, PCP Primary Care Physician Unavailable [place] [facility] [place] 07/11/22 - 07/12/[address] [address] Discharge Disposition: A-Transfer VNA/Home Health Attending Physician: Jasiel Enriquez MD Admitting Physician: Imelda Moctezuma MD Referring Physician: Not on Staff, Referring [...] II opioid drug. Start Date: 07/09/22 Status: OrderedProAir HFA 90 mcg/inh inhalation aerosol [...] Active DM2 (diabetes mellitus, type Active 2)(Confirmed) Results Radiology Reports Exam Date Time Procedure Performing Provider Status 07/09/22 2:17 PM Chest 2 Views Frontal and Lat Barrera Boyd saundra; Auth (Verified) Notes:(Chest 2 Views Frontal and Lat) Reason For Exam: Shortness of Breath, Fever;Other:RESULT: Chest 2 Views Frontal and Lat Chest 2 Views Frontal and Lat HX OF PRESENT ILLNESS: Pt was getting his medications in the kitchen today when he states he faintedand fell backwards with his walker landing on top of him. Struck his head on the way down.; Reason: Shortness of Breath, Fever; Clinical Question(s): Pneumonia / Pneumonia COMPARISON: 02/15/2022 FINDINGS: LINES AND TUBES: None. LUNGS AND PLEURA: Clear lungs. Normal pulmonary vascularity. No pleural effusion. No pneumothorax. HEART, MEDIASTINUM AND MARTY: Heart is normal in size. Normal mediastinal and hilar contour. BONES AND SOFT TISSUES: No acute abnormality. IMPRESSION: No evidence of acute abnormality. WSN: [id number] Ordering Physician: Jacob Madison Dictated By: Feng Johnson MD Dictated Date/Time: 07/09/22 2:20 pm Reviewed By: Feng Johnson MD Signed By: Feng Johnson MD Signed Date/Time: 07/09/22 2:20 pm Transcribed By: CAMPBELL Transcribed Date/Time: 07/09/22 2:20 pm Vital Signs Most recent to oldest 1 2 3 [Reference Range]: Height 177.8 cm 177.8 cm 177.8 cm (07/12/22 7:59 AM) (07/12/22 7:57 AM) (07/11/22 7:48 P M) Weight 69.7 kg 77.5 kg 73 kg (07/10/22 3:37 PM) (07/10/22 1:30 PM) (07/10/22 11:46 AM) Oxygen Saturation [94-100 %] 100 % 100 % 100 % (07/12/22 7:59 AM) (07/12/22 4:00 AM) (07/11/22 11:00 PM) Pulse Rate [55-90 bpm] 100 bpm 72 bpm 83 bpm *H* (07/12/22 4:00 AM) (07/11/22 11:00 P M) (07/12/22 7:59 AM) Body Mass Index [18.5-24.99] 22.05 25.31 23. 84 (07/10/22 3:37 PM) *H* (07/10/22 11:46 A M) (07/10/22 1:30 PM) Blood Pressure [90-138/55-84 144/78 mm Hg 139/78 mm Hg 130 /68 mm Hg mm Hg] *H* *H* (07/11/22 11:00 PM ) (07/12/22 7:59 AM) (07/12/22 4:00 AM) Respiratory Rate [16-30 20 br/min 18 br/min 19 br/mi n br/min] (07/12/22 7:59 AM) (07/12/22 4:00 AM) (07/11/22 11:00 PM) Temperature [96.8-100.4 98.1 DegF 97.5 DegF 98.2 Deg F DegF] (07/12/22 7:59 AM) (07/12/22 4:00 AM) (07/11/22 11:00 PM) Mode of Delivery (Oxygen) Room air Room air Room a ir (07/12/22 7:59 AM) (07/12/22 4:00 AM) (07/11/22 11:00 PM) Blood pressure sites Arm, right Arm, left Arm, left (07/12/22 7:59 AM) (07/12/22 4:00 AM) (07/11/22 11:00 PM) Temperature Route Oral Oral Oral (07/12/22 7:59 AM) (07/12/22 4:00 AM) (07/11/22 11:00 PM) Dry Weight 77.5 kg 73 kg 73 kg (07/10/22 1:30 PM) (07/10/22 11:46 AM) (07/10/22 9:08 AM) Weight Obtained Via Standing scale Patient/family stated (07/10/22 3:37 PM) (07/09/22 11:33 AM) Social History Social History Type Response Smoking Status Former smoker, quit more rosy n 30 days ago; Exposure to Secondhand Smoke: No entered on: 02/16/22 Sex Note BHSPowerscribe , CIS S: TRANSCRIBE Feng Johnson MD S: VERIFY Event Display: Result: Authored Date: [id number] Chest 2 Views Frontal and Lat HX OF PRESENT ILLNESS: Pt was getting his medications in the kitchen today when he states he faintedand fell backwards with his walker landing on top of him. Struck his head on the way down.; Reason: Shortness of Breath, Fever; Clinical Question(s): Pneumonia / Pneumonia COMPARISON: 02/15/2022 FINDINGS: LINES AND TUBES: None. LUNGS AND PLEURA: Clear lungs. Normal pulmonary vascularity. No pleural effusion. No pneumothorax. HEART, MEDIASTINUM AND MARTY: Heart is normal in size. Normal mediastinal and hilar contour. BONES AND SOFT TISSUES: No acute abnormality. IMPRESSION: No evidence of acute abnormality. WSN: [id number] Ordering Physician: Jacob Madison Dictated By: Feng Johnson MD Dictated Date/Time: 07/09/22 2:20 pm Reviewed By: Feng Johnson MD Signed By: Feng Johnson MD Signed Date/Time: 07/09/22 2:20 pm Transcribed By: CAMPBELL Transcribed Date/Time: 07/09/22 2:20 pm Care Team PersonnelName: Not on Staff, PCP
--- OUTSIDE RECORDS SUMMARY | 2022-09-22 10:34 | XMS_ITS | Continuity of Care Document ---
:1955 Author Organization [facility] Address [address] [place] [phone]- Care Team Providers Name Role Phone oNrm BELLA, Debra Shrestha Primary Care Physician Encounter [facility] [place] Date(s): 03/04/22 - 04/03/[address] [address] Attending Physician: Not on Staff, Attending MD Admitting Physician: Not on Staff, Admitting MD Referring Physician: Not on Staff, Referring [...] drug. Start Date: 02/16/22 Status: Orderedvitamin A 93228 u oral capsule By Mouth, Daily, Refills [...]
--- OUTSIDE RECORDS SUMMARY | 2022-09-22 10:34 | XMS_ITS | Continuity of Care Document ---
:1955 Author Organization [facility] Address [address] [place] [id number]- Care Team Providers Name Role Phone Not on Staff, PCP Primary Care Physician Unavailable Encounter [facility] Date(s): 08/20/22 - 08/21/[address] [address] Encounter Diagnosis Chest pain (Final) - 08/20/22 Chest pain (Final) - 08/20/22 Discharge Disposition: A-D/C Home Attending Physician: Margarito Lawson MDhammad Admitting Physician: Dorcas Marquez DO Referring Physician: Not on Staff, Referring MD [...] Refills, Maintenance, 07/19/22 15:57:00 EDT, EC Capsule, [facility], Partial fill upon patient request if [...] Date: 07/12/22 Status: Ordered Problem List Condition Confirmation Course Effective Dates Status Health Stat us Informant COPD without Confirmed Active exacerbation History of gastric Confirmed Active bypass HLD Confirmed Active (hyperlipidemia) HTN (hypertension) Confirmed Active Results Radiology Reports Exam Date Time Procedure Performing Provider Status 08/20/22 11:37 AM Chest Portable Miguelina Avina; Auth (Verified ) Notes:(Chest Portable) Reason For Exam: Shortness of BreathRESULT: Chest Portable Chest Portable Hx of Present Illness: pt from home, SOS, cp starting 2300 last night, 10 10, nonradiating; Reason: Shortness of Breath; Clinical Question(s): CHF COMPARISON: 07/09/2022 FINDINGS: LINES AND TUBES: None. LUNGS AND PLEURA: Clear lungs. No pleural effusion. No pneumothorax. IMPRESSION: No radiographic evidence of an acute cardiopulmonary process. I have personally reviewed the images and I agree with this report. WSN: [id number] Ordering Physician: Imani Whitt Dictated By: Ramon Hernandez MD Dictated Date/Time: 08/20/22 11:56 a Reviewed By: Kevin Cantu MD Signed By: Kevin Cantu MD Signed Date/Time: 08/20/22 12:01 pm Transcribed By: CAMPBELL Transcribed Date/Time: 08/20/22 11:40 am Vital Signs Most recent to oldest 1 2 3 [Reference Range]: Height 177.8 cm 177.8 cm 177.8 cm (08/21/22 10:49 AM) (08/21/22 8:00 AM) (08/21/22 3:29 AM) Weight 72.7 kg (08/20/22 4:58 PM) Oxygen Saturation [94-100 99 % 100 % 99 % %] (08/21/22 10:49 AM) (08/21/22 8:00 AM) (08/21/22 3:29 AM) Pulse Rate [55-90 bpm] 79 bpm 76 bpm 72 bpm (08/21/22 10:49 AM) (08/21/22 8:00 AM) (08/21/22 3:29 AM) Body Mass Index 23 kg/m2 [18.5-24.99 kg/m2] (08/20/22 4:58 PM) Blood Pressure 127/80 mm Hg 138/83 mm Hg 113/68 mm Hg [90-138/55-84 mm Hg] (08/21/22 10:49 AM) (08/21/22 8:00 AM) ( 3:29 AM) Respiratory Rate [16-30 18 br/min 16 br/min 18 br/mi n br/min] (08/21/22 10:49 AM) (08/21/22 9:00 AM) (08/21/22 8:00 AM) Temperature [96.8-100.4 98.3 DegF 97.9 DegF 97.8 Deg F DegF] (08/21/22 10:49 AM) (08/21/22 8:00 AM) (08/21/22 3:29 AM) Mode of Delivery (Oxygen) Room air Room air Room a ir (08/21/22 10:49 AM) (08/21/22 8:00 AM) (08/21/22 3:29 AM) Blood pressure sites Arm, right Arm, left Arm, left (08/21/22 10:49 AM) (08/21/22 3:29 AM) (08/20/22 10:48 PM) Temperature Route Oral Oral Oral (08/21/22 10:49 AM) (08/21/22 8:00 AM) (08/21/22 3:29 AM) Weight Obtained Via Patient/family stated (08/20/22 4:58 PM) Social History Social History Type Response Smoking Status Former smoker, quit more rosy n 30 days ago; Exposure to Secondhand Smoke: No entered on: 02/16/22 Sex Portable XR Chest Views BHSPowerscribe , CIS S: TRANSCRIBE Alondra BELLA, Kevin P: EM Hernandez MD, Ramon: SIGN Event Display: Result: Authored Date: [id number] Chest Portable Hx of Present Illness: pt from home, SOS, cp starting 2300 last night, 10 10, nonradiating; Reason: Shortness of Breath; Clinical Question(s): CHF COMPARISON: 07/09/2022 FINDINGS: LINES AND TUBES: None. LUNGS AND PLEURA: Clear lungs. No pleural effusion. No pneumothorax. IMPRESSION: No radiographic evidence of an acute cardiopulmonary process. I have personally reviewed the images and I agree with this report. WSN: [id number] Ordering Physician: Imani Whitt Dictated By: Ramon Hernandez MD Dictated Date/Time: 08/20/22 11:56 a Reviewed By: Kevin Cantu MD Signed By: Kevin Cantu MD Signed Date/Time: 08/20/22 12:01 pm Transcribed By: CAMPBELL Transcribed Date/Time: 08/20/22 11:40 am Patient Care team information PersonnelName: Not on Staff, PCP
[2022-09-22 10:39] VITALS: TEMP 37
--- NOTE | 2022-09-22 12:21 | ED_ITS ---
HPI - Extremity Problem General Chief complaint: General Medical Stated complaint: Blood Clot R Leg Time Seen by Provider: 09/22/22 10:13 Source: patient and family Mode of arrival: ambulatory Limitations: language barrier (South African-Speaking) History of Present Illness HPI Narrative: 67-year-old male with a past medical history of anxiety, arthritis, asthma, COPD, depression, HLD, HTN, T2DM, vitamin-D deficiency and venous insufficiency c a PSHx gastric bypass approximately 1 year ago presenting to the ED after he was found to have a DVT in his femoral vein by an outpatient ultrasound ordered by Dr. Beckham his vascular surgeon. Patient reports that he has been having right leg/groin pain for approximately 1 year although worse in the past few months and this is why Dr. Beckham ordered an ultrasound of his right lower extremity. Daughter reports that he has been complaining of intermittent chest pain althoug h patient denies chest pain at this time. Daughter also reports that he is not very active and uses he just sits around in the better the chair at home. He denies any dizziness, headaches, neck pain/stiffness, chest pain, shortness of breath, nausea/vomiting, dyspnea on exertion, orthopnea, palpitations, paresthesias, abdominal pain, back pain, flank pain, dysuria, hematuria, abnormal penile discharge, black or bloody stools, recent travel or sick contacts that he is aware of, history of DVT or PE in the past, hypercoagulation disorder that he is aware of, history of cancer that he is aware of, recent travel on a long plane train or car ride, rashes or falls or any other symptoms complaints or concerns at this time. MD Complaint: extremity pain and extremity swelling Onset (ago): month(s) Pain Consistency: constant Location: right and lower extremity (groin area ) Quality: aching Radiation: none Relieving factors: nothing Exacerbating factors: palpation Associated symptoms: denies other symptoms Context: immobilization and recent surgery/procedure (x 1 year ago gastric bypass) Related Data Home Medications Medication Instructions Recorded Confirmed atorvastatin 20 mg tablet 20 mg PO BEDTIME 11/04/20 04/20/22 ferrous sulfate 325 mg (65 mg 325 mg PO DAILY 11/04/20 04/20/22 iron) tablet,delayed release ascorbic acid (vitamin C) 250 mg 250 mg PO QAM 04/23/21 04/20/22 tablet fluticasone 100 mcg-salmeterol 50 1 ea inhalation BID 04/23/21 04/20/22 mcg/dose blistr powdr for inhalation pen needle, diabetic 32 gauge x #50 ea 04/23/21 04/20/22 tiotropium bromide 18 mcg capsule 1 cap inhalation DAILY 04/23/21 04/20/22 with inhalation device tramadol 50 mg tablet 50 mg PO Q12H PRN 12/26/21 04/20/22 celebrate MVI PO DAILY 04/20/22 04/20/22 omeprazole 20 mg capsule,delayed 20 mg PO DAILY 07/28/22 release Previous Rx's Medication Instructions Recorded ipratropium 0.5 mg-albuterol 3 mg 3 ml inhalation Q6H PRN shortness 09/12/20 (2.5 mg base)/3 mL nebulization of breath or wheezing #15 mL soln dulaglutide 1.5 mg/0.5 mL 1.5 mg (0.5 mL) subcut QWEEK 30 04/23/21 subcutaneous pen injector days #2.5 mL (Trulicity) acetaminophen 500 mg tablet 1,000 mg PO Q6H PRN pain #30 tabs 06/16/21 (Tylenol Extra Strength) thiamine HCl (vitamin B1) 100 mg 100 mg PO DAILY #30 tabs 01/05/22 tablet cyclobenzaprine 5 mg tablet 5 mg PO BEDTIME PRN muscle spasm 06/26/22 #10 tabs lidocaine 5 % topical patch 1 patch topical DAILY PRN pain #15 06/26/22 ea apixaban 5 mg (74 tabs) tablets in 5 mg PO BID #74 ea 09/22/22 a dose pack (Eliquis DVT-PE Treat 30D Start) Allergies Allergy/AdvReac Type Severity Reaction Status Date / Time aspirin [Aspirin] Allergy Mild SWELLING Verified 09/22/22 10:33 Penicillins Allergy Mild SWELLING Verified 09/22/22 10:33 Review of Systems Review of Systems: Constitutional : No Weight loss, No Fever, No Chills, No Night Sweats, No Fatigue, No Malaise ENT/Mouth : No Hearing loss, No Ear Pain, No Nasal Congestion, No Sinus Pain, No Hoarseness, No sore throat, No Rhinorrhea, No Swallowing Difficulty Eyes: No Eye Pain, No Swelling, No Redness, No Foreign Body, No Discharge, No Vision Changes Cardiovascular : No Chest Pain, No SOB, No Dyspnea on Exertion, No Orthopnea, No Edema, No Palpitations Respiratory : No Cough, No Sputum, No Wheezing, No Smoke Exposure, No Dyspnea Gastrointestinal : No Nausea, No Vomiting, No Diarrhea, No Constipation, No abdominal Pain, No Hematochezia, No Melena Genitourinary : no irregular bleeding, No Dysuria, No Urinary Frequency, No Hematuria, No Urinary Incontinence, No Urgency, No Flank Pain, No Urinary Flow Changes, No Hesitancy Musculoskeletal : No joint pain, No Myalgias, No Joint Swelling Skin : No Skin Lesions, No rash Neuro : No Weakness, No Numbness, No Paresthesias, No Loss of Consciousness, No Dizziness, No Headache Psych : No Anxiety/Panic, No Depression, No SI/HI/AH/VH, No Social Issues, Heme/Lymph: No Bruising, No Bleeding,No Lymphadenopathy Endocrine : No Polyuria, No Polydipsia, No Temperature Intolerance +RIGHT GROIN PAIN Yes all other systems are reviewed and are negative [facility] Past Medical History Attestation statement: The following information was validated with the patient. Source: old records reviewed, obtained from family and nursing notes reviewed Medical History Anxiety Arthritis Asthma COPD (chronic obstructive pulmonary disease) COVID-19 vaccine series completed Depression HLD (hyperlipidemia) Hypertension T2DM (type 2 diabetes mellitus) Venous insufficiency Vitamin D deficiency Surgical History H/O colonoscopy with polypectomy History of esophagogastroduodenoscopy (EGD) History of repair of hiatal hernia History of umbilical hernia repair Status post laparoscopic sleeve gastrectomy Family History Family History Father CVD (cardiovascular disease) Heart disease Mother Heart disease CVD (cardiovascular disease) Brother Cancer Brother Cancer Brother Heart attack Sister CVD (cardiovascular disease) Diabetes mellitus Hypertension Arthritis Social History Social History Are you a primary career and guidance counselor to a significant other at home: No Do you presently have visiting nurse or other home services: Yes ([employer]-daughter) Alcohol intake: never Patient Tobacco Use Status: Former Tobacco user Quit Date: age 19 Tobacco use type: Cigarette Smoked in Last 30 Days: No Use of substances other than those prescribed or required for medical reasons: No Advance Directives: Yes Advance Directives on File: Yes Advance Directives Date on File: 06/27/21 service: No Current occupational status: unemployed Physical Exam Vital Signs: Vital Signs: Last Vital Signs Temp 98.6 F 09/22/22 10:39 Pulse 63 09/22/22 16:05 Resp 14 09/22/22 16:05 BP 137/75 09/22/22 16:05 Pulse Ox 99 09/22/22 16:05 O2 Del Method 09/22/22 16:05 BMI result Body Mass Index 23.5 vital signs have been reviewed as normal and appeared to be correct. Blood pressure normal. Heart rate normal. Respiration rate normal. Temperature normal. Oxygen saturation normal. Appearance: Alert. Oriented X3. No acute distress. Head: Normal external exam. Normocephalic. Atraumatic. Eyes: PERRLA. EOMI. Conjunctiva and sclera normal. Eyelids normal. ENT: Pharynx normal. Uvula midline. Moist mucous membranes. No lesions/ulcerations or masses noted on the tongue. Normal voice. No trismus noted. No drooling noted. No muffled voice noted. Neck: Normal inspection. Neck supple. FROM. No adenopathy. Thyroid Normal. No meningeal signs. CVS: Normal heart rate and rhythm. Heart sound normal. Pulses normal throughout. No murmurs/rales/gallops. Respiratory: No respiratory distress. Painless inspiration. Breath sounds normal. No wheezes/rales/rhonchi noted. Chest nontender. No crepitus is noted. No accessory muscle usage noted or decreased air movement noted. No signs of trauma. Abdomen: Soft and nontender. Nondistended. No guarding. No rigidity. Bowel sounds normal in all 4 quadrants. No distention noted. No organomegaly noted. No visible injury noted. No rebound tenderness. Negative Rovsing sign. Negative obturator's sign. Negative psoas sign. Negative Nicole sign. Back: Full range of motion noted. Skin: Skin warm and dry. Normal skin color. Normal skin turgor. No ra shes/lesions/lacerations noted. Extremities: Patient c TTP of right groin area over femoral vein. There is no obvious lower extremity pitting edema and there is no calf tenderness noted bilaterally. Although patient's right lower extremity appears larger than the left lower extremity. Extremities exhibit normal range of motion and nontender. Neuro: Oriented X 3. No motor deficit. No sensory deficit. Reflexes normal. Normal steady gait. No focal neuro deficits noted. CN's II-XII intact bi laterally? Vascular: + radial pulses/+ 2 distal pedal pulses/+femoral pulses b/l, +2 dorsalis pedis b/l. Normal cap refill. No cyanosis noted to upper extremity nails and lower extremity toes nails. Course Course Course Narrative: 10:30am - 67-year-old male with a past medical history of anxiety, arthritis, asthma, COPD, depression, HLD, HTN, T2DM, vitamin-D deficiency and venous insufficiency c a PSHx gastric bypass approximately 1 year ago presenting to the ED after he was found to have a DVT in his femoral vein by an outpatient ultrasound ordered by Dr. Beckham his vascular surgeon. Patient reports that he has been having right leg/groin pain for approximately 1 year although worse in the past few months and this is why Dr. Beckham ordered an ultrasound of his right lower extremity. Daughter reports that he has been complaining of intermittent chest pain although patient denies chest pain at this time. Daughter also reports that he is not very active and uses he just sits around in the better the chair at home. I was told by the technical systems architect that patient does have a femoral vein DVT. I was able to remove reviewed the results and I was able to visualize it. Therefore I discussed this case with Dr. Beckham he reports that the patient can be started on Eliquis or Xarelto. Plan: Although due to the daughter reporting intermittent episodes of chest pain will order labs, CT of chest for PE, EKG then re-evaluate. Reevaluation(s) Reevaluation #1: - a blood cell count 4000 which is similar compared to prior. Patient with anemia with an H&H of 11.8/37.5. This is decreased when compared to prior. - BUN 19. - random glucose 228. - alkaline phosphate 121. - total protein 5.9. - albumin 3.3. - otherwise all other labs are within normal limits. - patient negative for COVID. - venous duplex ultrasound of right lower extremity revealed acute mobile thrombus within the right common femoral vein just distal to the saphenofemoral junction. No other thrombus is seen throughout the right lower extremity. - therefore at this time awaiting CTA of chest for PE if negative patient will be discharged with Eliquis or Xarelto as instructed by Dr. Beckham. Time: 14:31 Reevaluation #2: - CTA of chest for PE positive for PE. - I attempted to admit the patient although Dr. Cano and Dr. Beckham did not believe the patient needed admission at this time due to patient is stable and has proper follow-up. - I discussed this case with Dr. Beckham and Dr. Cano the hospitalist and patient is stable does not have any right heart strain and vital signs are stable. Not requiring oxygen. Therefore at this time will DC home with Eliquis and instructions to follow-up with Dr. Beckham and PCP and Dr. Reed and to return if any new or worsening symptoms. I also discussed this with the patient's daughter over the phone. They understand agree this plan. Time: 16:11 Medications Administered Discontinued Medications Generic Name Dose Route Start Last Admin Trade Name Freq PRN Reason Stop Dose Admin Apixaban 10 mg 09/22/22 14:37 09/22/22 15:32 Apixaban 5 Mg Tablet PO 09/22/22 14:38 10 mg ONCE ONE Administration Iohexol 100 ml 09/22/22 15:18 09/22/22 15:18 Iohexol 350 Mg/Ml 100 Ml Infus..Btl IV 09/22/22 15:19 65 ml ONCE ONE Administration MDM - Extremity (Nontraumatic) Medical Records Attestation: I reviewed the patient's medical records. Lab Data Attestation: I reviewed the patient's lab results. Result diagrams: 09/22/22 14:00 09/22/22 14:01 Labs: Lab Results 09/22/22 09/22/22 09/22/22 Range/Units 14:00 14:00 14:00 WBC 4.0 L (4.8-10.8) X10*3/uL RBC 3.91 L (4.60-5.80) X10*6/uL Hgb 11.8 L (14.0-18.0) g/dl Hct 37.5 L (42.0-52.0) % MCV 95.9 (80.0-98.0) fL MCH 30.2 (27.0-33.0) pg MCHC 31.5 (31.0-36.0) g/dl RDW 12.2 (11.0-16.0) % Plt Count 180 D (160-400) X10*3/uL MPV 10.6 (9.4-12.4) fL Immature Gran % (Auto) 0.3 (0.0-0.4) % Neut % (Auto) 49.4 (45-73) % Lymph % (Auto) 42.0 H (20-40) % [place] % (Auto) 4.3 (2-11) % Eos % (Auto) 3.0 (0-4) % Baso % (Auto) 1.0 (0-2) % Lymph # (Auto) 1.7 (1.2-4.9) X10*3/uL [place] # (Auto) 0.2 (0.1-1.2) X10*3/uL Eos # (Auto) 0.1 (0.0-0.4) X10*3/uL Baso # (Auto) 0.0 (0.0-0.2) X10*3/uL Abs Immat Gran (auto) 0.01 (0.00-0.03) X10*3/uL Absolute Neuts (auto) 2.0 (2.0-8.3) x10*3/uL Absolute Nucleated RBC 0.000 (0.0-0.012) X10*3/uL Nucleated RBC % (auto) 0.0 (0.0-0.2) /100WBC PT 11.9 (10.0-13.1) SEC INR 1.0 (0.9-1.1) Sodium (135-145) mmol/L Potassium (3.3-5.1) mmol/L Chloride (96-108) mmol/L Carbon Dioxide (22-29) mmol/L Anion Gap (12-20) BUN (9-16) mg/dL Creatinine (0.5-1.4) mg/dL Estim Creat Clear Calc Estimated GFR Random Glucose (60-115) mg/dL Calcium (8.4-10.2) mg/dL Magnesium (1.6-2.6) mg/dL Total Bilirubin (0.0-1.0) mg/dL AST (5-37) U/L ALT (0-40) U/L Alkaline Phosphatase (39-117) U/L Troponin I High Sens < 3.5 (<3.5-35.0) ng/L B-Natriuretic Peptide (<100) pg/mL Total Protein (6.5-8.0) g/dL Albumin (3.5-5.0) g/dL COVID-19 (JONATHAN) (Negative) COVID-19 Clin Com 09/22/22 09/22/22 09/22/22 Range/Units 14:00 14:01 14:03 WBC (4.8-10.8) X10*3/uL RBC (4.60-5.80) X10*6/uL Hgb (14.0-18.0) g/dl Hct (42.0-52.0) % MCV (80.0-98.0) fL MCH (27.0-33.0) pg MCHC (31.0-36.0) g/dl RDW (11.0-16.0) % Plt Count (160-400) X10*3/uL MPV (9.4-12.4) fL Immature Gran % (Auto) (0.0-0.4) % Neut % (Auto) (45-73) % Lymph % (Auto) (20-40) % [place] % (Auto) (2-11) % Eos % (Auto) (0-4) % Baso % (Auto) (0-2) % Lymph # (Auto) (1.2-4.9) X10*3/uL [place] # (Auto) (0.1-1.2) X10*3/uL Eos # (Auto) (0.0-0.4) X10*3/uL Baso # (Auto) (0.0-0.2) X10*3/uL Abs Immat Gran (auto) (0.00-0.03) X10*3/uL Absolute Neuts (auto) (2.0-8.3) x10*3/uL Absolute Nucleated RBC (0.0-0.012) X10*3/uL Nucleated RBC % (auto) (0.0-0.2) /100WBC PT (10.0-13.1) SEC INR (0.9-1.1) Sodium 138 (135-145) mmol/L Potassium 4.1 (3.3-5.1) mmol/L Chloride 103 (96-108) mmol/L Carbon Dioxide 26 (22-29) mmol/L Anion Gap 13 (12-20) BUN 19 H (9-16) mg/dL Creatinine 1.27 (0.5-1.4) mg/dL Estim Creat Clear Calc 59.0 Estimated GFR 57 Random Glucose 228 H D (60-115) mg/dL Calcium 8.8 D (8.4-10.2) mg/dL Magnesium 1.8 (1.6-2.6) mg/dL Total Bilirubin 0.8 (0.0-1.0) mg/dL AST 20 D (5-37) U/L ALT 13 (0-40) U/L Alkaline Phosphatase 121 H D (39-117) U/L Troponin I High Sens (<3.5-35.0) ng/L B-Natriuretic Peptide 36 (<100) pg/mL Total Protein 5.9 L (6.5-8.0) g/dL Albumin 3.3 L (3.5-5.0) g/dL COVID-19 (JONATHAN) Negative (Negative) COVID-19 Clin Com See Note Imaging Data Venous duplex ultrasound of right lower extremity: Attestation: I personally reviewed and interpreted this imaging study as follows: Radiologist's impression: FINDINGS: There is hypoechoic mobile thrombus centrally within the right common femoral vein, distal to the saphenofemoral junction. Hypoechoic appearance of the thrombus is suggestive of acute thrombus. No thrombus is seen throughout the remainder of the femoral vein. There is normal compressibility of variability throughout the remainder of the femoral vein, popliteal vein, and midcalf venous segments junction? There is no significant popliteal fossa cyst. US/US venous duplex LE RT IMPRESSION: There is acute hypoechoic, mobile thrombus within the right common femoral vein just distal to the saphenofemoral junction. No other thrombus is seen throughout the right lower extremity. ? Findings were communicated with the referring physician's office by the agricultural research technologist at 9:51 AM and the patient was sent to the emergency department. CTA of chest for PE: Attestation: I personally reviewed and interpreted this imaging study as follows: Radiologist's impression: FINDINGS: QUALITY OF STUDY/CONTRAST BOLUS: Satisfactory. PULMONARY ARTERIES: There are small filling defects in the lingular in the inferior branch of left pulmonary artery consistent with small PE.. The main, right and left pulmonary arteries are patent.? THORACIC AORTA: No aneurysm or dissection. LUNG: The lungs are well-expanded and clear acute pneumonic process. No pulmonary nodule, mass or consolidation seen. PLEURA: No pleural effusion or pneumothorax. MEDIASTINUM: Normal heart size.? No pericardial effusion.? No hilar or mediastinal lymphadenopathy.? No evidence of septal bowing or right heart strain. CHEST WALL/AXILLA: No axillary or internal mammary lymphadenopathy. OSSEOUS STRUCTURES: No aggressive lytic or sclerotic process seen. There is ventral spondylosis mid and lower dorsal spine.? UPPER ABDOMEN: Visualized liver, spleen and pancreas is unremarkable. Suspect hyperdense gravel or stones in the gallbladder.? No reflux of contrast into the hepatic veins to suggest elevated right heart pressures. CT/CT angio chest PE protocol IMPRESSION: Inferior and lingular branch of left pulmonary artery thrombus consistent with PE. ? Positive results were conveyed to Shashank Gomez by phone to ER at 3:42 PM. ? VTE: positive ECG Data Attestation EKG: I personally reviewed and interpreted this ECG as follows: ECG interpretation date: 09/22/22 ECG interpretation time: 11:46 Interpretation: Sinus bradycardia with ventricular rate of [address] interval nonspecific T-wave abnormalities no acute ischemic change are noted. Improved when compared to prior EKG. Critical Care Time Critical Care Time Critical Care Time: Yes Total Critical Care Time: 60 Attestation: I personally attest to this time spent taking care of the patient Discharge Plan Discharge Clinical Impression: Deep vein thrombosis (DVT) of femoral vein, Pulmonary embolism Patient Disposition: Home, Self-Care Instructions: Deep Vein Thrombosis (ED) Prescriptions: [place] DVT-PE Treat 30D Start 5 mg (74 tabs) tablets,dose pack 5 mg PO BID Qty: 74 0RF Rx Instructions: Take 10 mg p.o. b.i.d. x7 days then 5 mg b.i.d. for DVT No Action thiamine HCl (vitamin B1) 100 mg tablet 100 mg PO DAILY Qty: 30 2RF ipratropium-albuterol 0.5 mg-3 mg(2.5 mg base)/3 mL solution for nebulization 3 ml inhalation Q6H PRN (Reason: shortness of breath or wheezing) Qty: 15 0RF lidocaine 5 % adhesive patch,medicated 1 patch topical DAILY PRN (Reason: pain) Qty: 15 0RF Rx Instructions: leave on most painful area for up to 12 hrs cyclobenzaprine 5 mg tablet 5 mg PO BEDTIME PRN (Reason: muscle spasm) Qty: 10 0RF ferrous sulfate 325 mg (65 mg iron) tablet,delayed release (DR/EC) 325 mg PO DAILY atorvastatin 20 mg tablet 20 mg PO BEDTIME acetaminophen [Tylenol Extra Strength] 500 mg tablet 1,000 mg PO Q6H PRN (Reason: pain) Qty: 30 1RF tramadol 50 mg tablet 50 mg PO Q12H PRN tiotropium bromide 18 mcg capsule, w/inhalation device 1 cap inhalation DAILY fluticasone propion-salmeterol 100-50 mcg/dose blister with device 1 ea inhalation BID ascorbic acid (vitamin C) 250 mg tablet 250 mg PO QAM (DME) pen needle, diabetic 32 gauge x 5/32 needle See Rx Instructions .ROUTE .MEDSUPPLY Qty: 50 Rx Instructions: As directed Trulicity 1.5 mg/0.5 mL pen injector 1.5 mg subcut QWEEK 30 Days Qty: 2.5 11RF celebrate MVI PO DAILY omeprazole 20 mg capsule,delayed release(DR/EC) 20 mg PO DAILY Referrals: Roberto Carlos Coleman MD [Primary Care Provider] - 1 day Eder Beckham MD [Physician] - 2 days Malou Reed MD [Physician] - (Call to make a follow-up appointment) Print Language: [place] African
[2022-09-22 14:07] LABS: MANUAL DIFF FLAG NO
[2022-09-22 14:09] LABS: Eosinophils Absolute Auto 0.1 X10*3/uL (0.0-0.4); Hematocrit 37.5 % (42.0-52.0); Hemoglobin 11.8 g/dl (14.0-18.0); Imm Gran Abs Auto 0.01 X10*3/uL (0.00-0.03); Imm Gran Pct Auto 0.3 % (0.0-0.4); Lymphocytes Absolute Auto 1.7 X10*3/uL (1.2-4.9); Mean Corpuscular HGB Conc 31.5 g/dl (31.0-36.0); Mean Corpuscular Hemoglobin 30.2 pg (27.0-33.0); Mean Corpuscular Volume 95.9 fL (80.0-98.0); Mean Platelet Volume 10.6 fL (9.4-12.4); Monocytes Absolute Auto 0.2 X10*3/uL (0.1-1.2); Monocytes Percent Auto 4.3 % (2-11); Neutrophils Percent Auto 49.4 % (45-73); Platelet Count 180 X10*3/uL (160-400); Red Blood Count 3.91 X10*6/uL (4.60-5.80); Red Cell Distribution Width 12.2 % (11.0-16.0)
[2022-09-22 14:18] LABS: Prothrombin Time 11.9 SEC (10.0-13.1)
[2022-09-22 14:27] LABS: COVID-19 Test Negative (Negative); IDNOW Serial# 55D5AD1C
[2022-09-22 14:28] LABS: Alanine Aminotransferase 13 U/L (0-40); Albumin Level 3.3 g/dL (3.5-5.0); Alkaline Phosphatase 121 U/L (39-117); Anion Gap 13 (12-20); Aspartate Amino Transferase 20 U/L (5-37); Bilirubin Total 0.8 mg/dL (0.0-1.0); Blood Urea Nitrogen 19 mg/dL (9-16); Calcium 8.8 mg/dL (8.4-10.2); Carbon Dioxide 26 mmol/L (22-29); Chloride 103 mmol/L (96-108); Estimated Glomerular Filt Rate 57; Glucose Random 228 mg/dL (60-115); Magnesium 1.8 mg/dL (1.6-2.6); Potassium 4.1 mmol/L (3.3-5.1); Sodium 138 mmol/L (135-145); Total Protein 5.9 g/dL (6.5-8.0)
[2022-09-22 14:31] LABS: B Type Natriuretic Peptide 36 pg/mL (<100)
[2022-09-22 14:32] LABS: Troponin-I High Sensitivity < 3.5 ng/L (<3.5-35.0)
[2022-09-22] MEDS: iohexoL 350 MG/ML 100 ML INFUS..BTL IV (15:18)
[2022-09-22] MEDS: Apixaban 5 MG TABLET 10 MG PO (15:32)
[2022-09-22 16:05] VITALS: BP 137/75; PULSE 63; RESP 14; O2SAT 99
== END 2022-09-22 17:15 | disposition home or self-care (01) ==
PROVIDERS: Physician Assistant Medical; Emergency Provider Emergency Medicine Emergency Medical Services; PCP Internal Medicine
DX: I82.411 Acute embolism and thrombosis of right femoral vein (principal); I26.99 Other pulmonary embolism without acute cor pulmonale; Z20.822 Contact with and (suspected) exposure to COVID-19; Z79.899 Other long term (current) drug therapy; Z87.891 Personal history of nicotine dependence; Z98.84 Bariatric surgery status
CPT/HCPCS: 36415; 71275; 80053; 83735; 83880; 84484; 85025; 85610; 87635; 93005; 99284; Q9967

== ENCOUNTER → 2022-10-20 10:50 | Outpatient (BNVA) | payer OTHER, SELFPAY | PROVIDERS: PCP Internal Medicine; Visit Provider Surgery Vascular Surgery | DX: I83.12 Varicose veins of left lower extremity with inflammation (principal) | CPT/HCPCS: 99212 ==

== ENCOUNTER 2022-12-09 10:14 | Outpatient (REF) | payer OTHER, SELFPAY ==
--- NOTE | ~2022-12-09 | US_ITS ---
EXAMINATION: US VENOUS REFLUX/INSUFFICIENCY CLINICAL INFORMATION: This is a 67-year-old man with left lower extremity varicosities and inflammatory change. COMPARISON: Lower extremity venous ultrasound, most recently 09/22/2022. TECHNIQUE: Bilateral lower extremity and venous insufficiency ultrasound was performed with velocity measurements. Color flow Doppler imaging was performed. FINDINGS: RIGHT SIDE: GREATER SAPHENOUS VEIN: The right saphenofemoral junction measurement is 0.7 cm. There is no reflux The right proximal thigh measurement is 0.5 cm. There is no reflux. The right mid thigh measurement is 0.4 cm. There is no reflux The right above-knee measurement is 0.2 cm. There is no reflux. The right at knee measurement is 0.2 cm. There is no reflux. The right below-knee measurement is 0.1 cm. There is no reflux The right mid calf measurement is 0.2 cm. The reflux time is 964 ms. The right ankle measurement is 0.2 cm. There is no reflux. LESSER SAPHENOUS VEIN: The right saphenofemoral junction measurement is 0.3 cm. There is no reflux. The right mid calf measurement is 0.2 cm. There is no reflux. The right distal calf measurement is 0.3 cm. There is no reflux. LEFT SIDE: GREATER SAPHENOUS VEIN: The left saphenofemoral junction measurement is 0.6 cm. There is no reflux The left proximal thigh measurement is 0.2 cm. This segment appears thrombosed. The left mid thigh measurement is 0.2 cm. This segment appears thrombosed. The left above-knee measurement is 0.3 cm. This segment appears thrombosed. The left at knee measurement is 0.2 cm. The reflux time is 756 cm/s. The left below-knee measurement is 0.4 cm. The reflux time is 756 cm/s. The left mid calf measurement is 0.2 cm. There is no reflux. The left ankle measurement is 0.2 cm. There is no reflux. ACCESSORY GREATER SAPHENOUS VEIN: The left saphenofemoral junction measurement is 0.3 cm. There is no reflux The left mid thigh measurement is 0.3 cm. There is no reflux. LESSER SAPHENOUS VEIN: The left saphenofemoral junction measurement is 0.6 cm. There is no reflux. The left mid calf measurement is 0.4 cm. There is no reflux. The left distal calf measurement is 0.3 cm. There is no reflux. BILATERAL LOWER EXTREMITIES DEEP VENOUS SYSTEMS: The right common femoral, mid femoral and popliteal vein segments show no reflux. No right lower extremity deep venous thrombosis is seen. The left common femoral, mid femoral and popliteal vein segments show no reflux. No left lower extremity deep venous thrombosis is seen. US/US venous duplex LE BI IMPRESSION: 1. There is hemodynamically significant reflux of the right greater saphenous vein. 2. There is hemodynamically significant reflux of the left greater saphenous vein. The proximal thigh to above-knee segments appear thrombosed. 3. No hemodynamically significant reflux is seen of the bilateral lesser saphenous veins. 4. No hemodynamically significant reflux is seen of the bilateral deep venous systems.
== END 2022-12-09 10:15 | disposition home or self-care (01) ==
LOC: HO.US 10:14
PROVIDERS: PCP Internal Medicine; Visit Provider Surgery Vascular Surgery
DX: I83.893 Varicose veins of bilateral lower extremities with other complications (principal)
CPT/HCPCS: 93970

== ENCOUNTER → 2022-12-17 09:00 | Outpatient (BNVA) | payer OTHER, SELFPAY | PROVIDERS: PCP Registered Nurse; Visit Provider Surgery Vascular Surgery | DX: I89.0 Lymphedema, not elsewhere classified (principal); I82.409 Acute embolism and thrombosis of unspecified deep veins of unspecified lower extremity | CPT/HCPCS: 99212 ==

== ENCOUNTER 2023-02-02 11:00 | Outpatient (REF) | payer OTHER, SELFPAY ==
--- NOTE | ~2023-02-02 | XR_ITS ---
EXAMINATION: XR chest 2V CLINICAL INFORMATION: Reason for Exam COPD, confirm PNU resolution COMPARISON: Chest radiograph 12/12/2020 TECHNIQUE: 2 views of the chest FINDINGS: Clear lungs. No pneumothorax or pleural effusion. Normal cardiomediastinal silhouette. XR/XR chest 2V Impression: * Clear lungs.
--- NOTE | ~2023-02-02 | US_ITS ---
EXAMINATION: US VENOUS ULTRASOUND WITH DOPPLER LOWER EXTREMITY, LEFT CLINICAL INFORMATION: Left lower extremity pain and swelling. COMPARISON: None available. TECHNIQUE: Ultrasound of the deep veins is performed from the hip to the calf with compression sonography and color and pulse Doppler assessment. Spectral analysis with color-flow imaging is performed. FINDINGS: There is normal venous compression and respiratory variation and augmented flow. The visualized common femoral vein, superficial femoral vein, profunda femoral vein, popliteal vein, and the trifurcation region shows no evidence of deep venous thrombosis. No left popliteal cyst. Mild to moderate subcutaneous edema in the left calf. If the patient's symptoms persist, followup ultrasound in 5 days 7 days might be of value to exclude proximal propagation from a non-visualized calf vein. US/US venous duplex LE IMPRESSION: 1. No evidence for deep venous thrombosis in the visualized veins of the left lower extremity. 2. Mild to moderate subcutaneous edema in the left calf.
== END 2023-02-02 11:01 | disposition home or self-care (01) ==
LOC: HO.US 11:00
PROVIDERS: PCP Registered Nurse; Visit Provider Registered Nurse
DX: I87.2 Venous insufficiency (chronic) (peripheral) (principal); R60.0 Localized edema; M79.89 Other specified soft tissue disorders
CPT/HCPCS: 71046; 93971

== ENCOUNTER → 2023-03-09 10:10 | Outpatient (BNVA) | payer OTHER, SELFPAY | PROVIDERS: PCP Registered Nurse; Visit Provider Hospitalist | DX: J44.9 Chronic obstructive pulmonary disease, unspecified (principal); I26.99 Other pulmonary embolism without acute cor pulmonale | CPT/HCPCS: 99202 ==

== ENCOUNTER → 2023-03-30 11:06 | Outpatient (BNVA) | payer OTHER, SELFPAY | PROVIDERS: PCP Registered Nurse; Visit Provider Physician Assistant Surgical | DX: Z98.84 Bariatric surgery status (principal) | CPT/HCPCS: 99212 ==

== ENCOUNTER 2023-04-26 09:44 | Outpatient (REF) | payer OTHER, SELFPAY ==
[2023-04-26 10:02] LABS: MANUAL DIFF FLAG NO
[2023-04-26 10:45] LABS: Basophils Percent Auto 0.5 % (0-2); Eosinophils Absolute Auto 0.1 X10*3/uL (0.0-0.4); Eosinophils Percent Auto 2.4 % (0-4); Hemoglobin 11.8 g/dl (14.0-18.0); Imm Gran Abs Auto 0.01 X10*3/uL (0.00-0.03); Imm Gran Pct Auto 0.3 % (0.0-0.4); Lymphocytes Absolute Auto 1.2 X10*3/uL (1.2-4.9); Lymphocytes Percent Auto 33.1 % (20-40); Mean Corpuscular HGB Conc 31.1 g/dl (31.0-36.0); Mean Corpuscular Hemoglobin 31.1 pg (27.0-33.0); Mean Platelet Volume 10.5 fL (9.4-12.4); Monocytes Absolute Auto 0.2 X10*3/uL (0.1-1.2); Monocytes Percent Auto 5.4 % (2-11); Neutrophils Absolute Auto 2.2 x10*3/uL (2.0-8.3); Neutrophils Percent Auto 58.3 % (45-73); Platelet Count 189 X10*3/uL (160-400); Red Cell Distribution Width 12.3 % (11.0-16.0); White Blood Count 3.7 X10*3/uL (4.8-10.8)
[2023-04-26 10:53] LABS: Estimated Average Glucose 91 mg/dL; Hemoglobin A1c % 4.8 %
[2023-04-26 12:00] LABS: Alanine Aminotransferase 10 U/L (0-40); Albumin Level 3.6 g/dL (3.5-5.0); Alkaline Phosphatase 107 U/L (39-117); Anion Gap 11 (12-20); Aspartate Amino Transferase 19 U/L (5-37); Bilirubin Total 0.8 mg/dL (0.0-1.0); Blood Urea Nitrogen 18 mg/dL (9-16); C Reactive Protein < 0.10 mg/dL (< or = 0.50); Calcium 9.3 mg/dL (8.4-10.2); Carbon Dioxide 29 mmol/L (22-29); Chloride 107 mmol/L (96-108); Cholesterol 148 mg/dL; Estimated Glomerular Filt Rate 55; Glucose Random 128 mg/dL (60-115); HDL Cholesterol 57 mg/dL; Iron 76 mcg/dL (45-160); LDL Cholesterol Calculated 82 mg/dl; Percent Iron Saturation 33 % (15-50); Sodium 143 mmol/L (135-145); Total Iron Binding Capacity 228 mcg/dL (228-428); Total Protein 6.7 g/dL (6.5-8.0); Triglycerides 46 mg/dL; Unsaturated Iron Binding 152 ug/dL
[2023-04-26 12:12] LABS: Ferritin 265 ng/mL (20-250); TSH reflex Free T4 1.84 uIU/mL (0.32-4.0)
[2023-04-26 12:32] LABS: Folate > 20.0 ng/mL (> or = 4.0); Vitamin B12 293 pg/mL (200-900)
[2023-04-26 13:04] LABS: Insulin 31 uU/mL (2-29)
[2023-04-28 14:18] LABS: Calcium (PTHI) 8.8 mg/dL (8.6-10.3); PTHI 111 pg/mL (16-77)
[2023-04-29 06:17] LABS: Zinc 59 mcg/dL (60-130)
[2023-04-30 18:58] LABS: Vitamin A 35 mcg/dL (38-98)
[2023-05-01 13:09] LABS: Vitamin B1 11 nmol/L (8-30)
== END 2023-04-26 09:45 | disposition home or self-care (01) ==
LOC: HO.LAB 09:44
PROVIDERS: Visit Provider Physician Assistant Surgical
DX: Z98.84 Bariatric surgery status (principal); K91.2 Postsurgical malabsorption, not elsewhere classified
CPT/HCPCS: 36415; 80053; 80061; 82306; 82607; 82728; 82746; 83036; 83525; 83540; 83970; 84425; 84443; 84590; 84630; 85025; 86140

== ENCOUNTER 2023-06-15 10:27 | Outpatient (REF) | payer OTHER, SELFPAY ==
--- NOTE | 2023-06-15 11:12 | PFT_ITS ---
FLOWS: 1. FEV1 60% of predicted at 2.08 L. 2. FVC 51% of predicted at 2.30 L. 3. FEV1 to FVC ratio of 0.90. 4. No bronchodilator response. LUNG VOLUMES: 1. Total lung capacity 56% of predicted at 3.97 L. 2. Residual volume 64% of predicted at 1.54 L. 3. Slow vital capacity 52% of predicted at 2.44 L. 4. Expiratory reserve volume 79% of predicted at 1.05 L. 5. Diffusion capacity is mildly decreased, diffusion capacity corrects to normal after adjustment for alveolar ventilation. IMPRESSION: No obstructive or restrictive ventilatory defect with no bronchodilator response. Wilmar Jones MD AP/MODL / [id number]
== END 2023-06-15 10:28 | disposition home or self-care (01) ==
LOC: HO.RESP 10:27
PROVIDERS: PCP Registered Nurse; Visit Provider Hospitalist
DX: J44.9 Chronic obstructive pulmonary disease, unspecified (principal)
CPT/HCPCS: 94010; 94727; 94729

== ENCOUNTER → 2023-06-15 11:12 | Outpatient (BNV) | payer OTHER, SELFPAY | PROVIDERS: PCP Registered Nurse; Visit Provider Internal Medicine Pulmonary Disease | DX: J44.9 Chronic obstructive pulmonary disease, unspecified (principal) | CPT/HCPCS: 94060; 94727; 94729 ==

== ENCOUNTER 2023-07-05 10:09 | Outpatient (AMB) | payer OTHER, SELFPAY ==
[2023-07-05 10:11] VITALS: BP 142/74; PULSE 60; O2SAT 98; BMI 23.8
--- NOTE | 2023-07-05 10:11 | MHC.OFFVIS ---
Intake Vital Signs 07/05/23 10:11 Height 5 ft 9 in Weight 160 lb 14.999 oz BMI 23.8 BP 142/74 H Blood Pressure Location Rt brachial Position Sitting Pulse 60 Pulse Source Pulse Oximeter Pulse Oximetry (%) 98 Oxygen Delivery Method Room Air Intake Visit Reasons: COPD Intake Note: Pt does not know name of his primary care doctor. Allergies aspirin [Aspirin] Allergy (Mild, Verified 07/05/23 10:15) SWELLING Penicillins Allergy (Mild, Verified 07/05/23 10:15) SWELLING HPI HPI Comments History of Present Illness Details The patient is a 68 y/o man with a h/o COPD and pulmonary emboli currently on Eliquis. The patient was evaluated by in 09/2022 at the [facility] when he was noted to the a DVT and a CTA with +PE. The patient has been on Eliquis. BAck in November 2022, the patient was evaluated with respiratory complaints and treated for pneumonia. Now the patient is feeling better. Does use his Advair and Spiriva. He also has a nebulizer. He does complain of mild dyspnea on exertion. Denies any chest pains, has intermittent cough. I do think that we need to simply his regimen some because all the inhalers has made it difficult for him to know which ones to use. He does continue to tolerate the Eliquis. At this point it appears that he has unprovoked PE and therefore has a higher risk for recurrent clots in the future. If his PFTs are abnormal, then we will request additional imaging studies to assess the clots. 07/05/2023 the patient is here for a pulmonary follow-up visit. He continues on the Eliquis twice a day. He is tolerating the medicine well without any evidence of any bleeding. He denies any significant shortness of breath. He did switch over to the Trelegy inhaler and has been affecting beneficial. He does have a rescue inhaler he has not required. The patient did have PFTs. Appears that his PFTs are significantly abnormal with a moderate restrictive process. Also has a diffusion impairment. Will I did review his last CT scan of the chest that was done back in September 2022 and demonstrates some nodularity on the right hemithorax close to the periphery of the right lung at the base. Based on his unprovoked clots significant weight loss and abnormal PFTs will request a repeat CT scan to assess those nodular densities noted on my review of the CT scan. I spoke to the patient and his daughter they agree with plan will plan to repeat the CT scan September 2023 will follow-up in October. The patient develops any worsening symptoms prior to that he will call the office. In the meantime will continue the Eliquis 5 mg twice a day. If all is well then we will consider decreasing the Eliquis to 2.5 twice a day. [facility] Medical History (Updated 07/05/23 @ 11:07 by Grabiel Roldan MD) Anxiety Arthritis Asthma Chronic restrictive lung disease COPD (chronic obstructive pulmonary disease) COVID-19 vaccine series completed Depression HLD (hyperlipidemia) Hypertension Pulmonary nodules T2DM (type 2 diabetes mellitus) Venous insufficiency Vitamin D deficiency Surgical History H/O colonoscopy with polypectomy History of esophagogastroduodenoscopy (EGD) History of repair of hiatal hernia History of umbilical hernia repair Status post laparoscopic sleeve gastrectomy Family History Father CVD (cardiovascular disease) Heart disease Mother Heart disease CVD (cardiovascular disease) Brother Cancer Brother Cancer Brother Heart attack Sister CVD (cardiovascular disease) Diabetes mellitus Hypertension Arthritis Social History Are you a primary acute care surgeon to a significant other at home: No Do you presently have visiting nurse or other home services: Yes ([employer]-daughter) Alcohol intake: never Patient Tobacco Use Status: Former Tobacco user Quit Date: age 19 Tobacco use type: Cigarette Advance Directives Date on File: 06/27/21 service: No Current occupational status: unemployed Review of Systems Const Denies fatigue, Denies fever(s) and Reports weight loss ENT Reports no additional complaints Card Denies chest pain, Denies chest pain at rest and Denies chest pain with activity Resp Denies chest congestion, Reports cough and Denies wheezing GI Reports no additional complaints Musc Details: pain over varicosities, aching of lower extremities, swelling, cramping, heaviness and tiredness, itching Denies abnormal gait Skin/Breast Reports pruritus and Denies wounds Neuro Reports no additional complaints and Denies abnormal gait Psych Denies no additional complaints Endo Denies fatigue Russell/Lymph Denies easy bleeding, Denies easy bruising and Denies lymphadenopathy Aller/Immun Denies wheezing Physical Exam Vital Signs: Last Vital Signs Pulse 60 07/05/23 10:11 BP 142/74 H 07/05/23 10:11 Pulse Ox 98 07/05/23 10:11 Oxygen Delivery Method Room Air 07/05/23 10:11 BMI result Body Mass Index 23.8 Const General: cooperative, healthy appearing and comfortable Orientation/consciousness: oriented to person, oriented to place and oriented to time HEENT Head: Yes normocephalic Neck Neck: Yes supple Carotids: no bruits Chest Chest palpation & inspection: normal inspection of the chest and normal palpation of entire chest wall Resp Effort & Inspection: normal respiratory effort and able to speak in complete sentences Auscultation: diminished lung sounds Cardio Rate: regular rate Heart sounds: S1 normal heart sound present and S2 normal heart sound present Peripheral pulses: Peripheral pulses 2+ throughout GI Inspection: Yes normal to inspection Skin General skin exam: dry skin Neuro General: oriented to person, oriented to place and oriented to time Extrem General: No clubbing, No cyanosis and Yes edema Right lower extremity: full ROM, normal capillary refill and edema Left lower extremity: full ROM, normal capillary refill and edema Psych Mental Status: mental status grossly normal Results Reviewed Results Reviewed: [place] [id number] CT Scan Report Signed Patient: Armando Ba MR#: [id number] : 1955 Acct:[id number] Age/Sex: 67 / M ADM Date: 09/22/22 Loc: .ED Attending Dr: Ordering Physician: Patricia Encarnacion Date of Service: 09/22/22 Procedure(s): CT angio chest PE protocol Accession Number(s): [id number] cc: Patricia Encarnacion~ EXAMINATION: CT ANGIOGRAM OF THE CHEST WITH AND WITHOUT CONTRAST (CT PULMONARY ANGIOGRAM FOR PE) CLINICAL INFORMATION: Reason for Exam intermittent chest pain and + RLE DVT COMPARISON: None? TECHNIQUE: Prior to contrast administration, noncontrast localization images were obtained. ? Subsequently, multidetector volumetric imaging was performed from the thoracic inlet to below the diaphragms following the administration of 80 mL Omnipaque 350 intravenous contrast. No contrast reaction reported Sagittal, coronal, and MIP oblique sagittal reformatted images were obtained on the CT workstation, uploaded to PACS, and reviewed. This CT examination was performed using dose optimization techniques as appropriate, variously including the following: *Automated exposure control *Adjustment of mA and/or kV according to patient size (this includes techniques or standardized protocols for targeted exams where dose is matched to indication/reason for exam; i.e. extremities or head) *Use of iterative reconstruction technique Total exam dose-length product 2 3 mGy-cm FINDINGS: QUALITY OF STUDY/CONTRAST BOLUS: Satisfactory. PULMONARY ARTERIES: There are small filling defects in the lingular in the inferior branch of left pulmonary artery consistent with small PE.. The main, right and left pulmonary arteries are patent.? THORACIC AORTA: No aneurysm or dissection. LUNG: The lungs are well-expanded and clear acute pneumonic process. No pulmonary nodule, mass or consolidation seen. PLEURA: No pleural effusion or pneumothorax. MEDIASTINUM: Normal heart size.? No pericardial effusion.? No hilar or mediastinal lymphadenopathy.? No evidence of septal bowing or right heart strain. CHEST WALL/AXILLA: No axillary or internal mammary lymphadenopathy. OSSEOUS STRUCTURES: No aggressive lytic or sclerotic process seen. There is ventral spondylosis mid and lower dorsal spine.? UPPER ABDOMEN: Visualized liver, spleen and pancreas is unremarkable. Suspect hyperdense gravel or stones in the gallbladder.? No reflux of contrast into the hepatic veins to suggest elevated right heart pressures. CT/CT angio chest PE protocol IMPRESSION: Inferior and lingular branch of left pulmonary artery thrombus consistent with PE. ? Positive results were conveyed to Shashank Gomez by phone to ER at 3:42 PM. ? VTE: positive Dictated By: Peter Cortez MD Signed By: <Electronically signed by Peter Cortez MD in OV> 09/22/22 1544 DD/ 1526 TD/TT:? 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 Lifelong anticoagulation is recommended. If he decides to stop the Eliquis after 6 months, then should have a ddimer checked after 4 weeks. After a year of anticoagulation (09/2023) he can also consider half dose Eliquis 2.5mg BID Code(s): I26.99 - Other pulmonary embolism without acute cor pulmonale (3) Chronic restrictive lung disease: Code(s): J98.4 - Other disorders of lung (4) Pulmonary nodules: Code(s): R91.8 - Other nonspecific abnormal finding of lung field Plan continue Trelegy daily for better adherence ONIEL as needed CT chest to assess pulmonary nodular densities in the RLL and abnormal PFTs continue Eliquis 5mg BID, consider decreasing to 2.5mg BID during the next visit F/U 3-4 months Orders: Orders CT chest wo IV con 09/27/23 J98.4 - Other disorders of lung, R91.8 - Other nonspecific abnormal finding of lung field Coding Level of Care Code Est Pt Level 4 (24025) Diagnoses COPD (chronic obstructive pulmonary disease) J44.9 Pulmonary embolism I26.99 Chronic restrictive lung disease J98.4 Pulmonary nodules R91.8 Time Spent (min) 18
== END 2023-07-05 10:28 | disposition home or self-care (01) ==
PROVIDERS: PCP Registered Nurse; Visit Provider Hospitalist
DX: J44.9 Chronic obstructive pulmonary disease, unspecified (principal); I26.99 Other pulmonary embolism without acute cor pulmonale; J98.4 Other disorders of lung; R91.8 Other nonspecific abnormal finding of lung field
CPT/HCPCS: 99214

== ENCOUNTER → 2023-07-05 10:09 | Outpatient (BNVA) | payer OTHER, SELFPAY | PROVIDERS: Visit Provider Hospitalist | DX: J44.9 Chronic obstructive pulmonary disease, unspecified (principal); I26.99 Other pulmonary embolism without acute cor pulmonale; J98.4 Other disorders of lung; R91.8 Other nonspecific abnormal finding of lung field; Z79.01 Long term (current) use of anticoagulants; Z79.899 Other long term (current) drug therapy | CPT/HCPCS: 99212 ==

== ENCOUNTER 2023-07-09 10:58 | Outpatient (REF) | payer OTHER, SELFPAY ==
--- NOTE | ~2023-07-09 | CT_ITS ---
EXAMINATION: CT HEAD WITHOUT CONTRAST CLINICAL INFORMATION: Headaches. COMPARISON: Brain MRI dated 07/01/2022. TECHNIQUE: Contiguous axial imaging was performed from the skullbase to vertex without intravenous administration of contrast. This CT examination was performed using dose optimization techniques as appropriate, variously including the following: *Automated exposure control *Adjustment of mA and/or kV according to patient size (this includes techniques or standardized protocols for targeted exams where dose is matched to indication/reason for exam; i.e. extremities or head) *Use of iterative reconstruction technique DLP: 647 mGy-cm. FINDINGS: There is no evidence of acute intracranial hemorrhage or territorial infarction. No abnormal mass effect or midline shift is seen. Rader to white matter differentiation is well preserved. No extra-axial fluid collections are identified. The ventricles are normal in size. Mild chronic white matter microangiopathic changes noted. The osseous structures and soft tissues are normal. The mastoid air cells and visualized portions of the paranasal sinuses are fairly well aerated. CT/CT head/brain wo IV con IMPRESSION: No acute intracranial pathology.
== END 2023-07-09 10:59 | disposition home or self-care (01) ==
LOC: HO.CT 10:58
PROVIDERS: PCP Registered Nurse; Visit Provider Registered Nurse
DX: R51.9 Headache, unspecified (principal)
CPT/HCPCS: 70450

== ENCOUNTER 2023-09-08 10:00 | Outpatient (REF) | payer OTHER, SELFPAY ==
--- NOTE | ~2023-09-08 | CT_ITS ---
EXAMINATION: CT CHEST WITHOUT CONTRAST CLINICAL INFORMATION: COPD. Confirm pneumonia resolution. COMPARISON: Chest radiograph 02/02/2023, CT pulmonary angiogram 09/22/2022. TECHNIQUE: Multidetector volumetric CT imaging of the chest was done. Axial MIP volume rendering provided. Sagittal and coronal reformatted images were obtained. This CT examination was performed using dose optimization techniques as appropriate, variously including the following: *Automated exposure control *Adjustment of mA and/or kV according to patient size (this includes techniques or standardized protocols for targeted exams where dose is matched to indication/reason for exam; i.e. extremities or head) *Use of iterative reconstruction technique DLP: 152.68 mGy-cm FINDINGS: LUNGS: The lungs are clear with no evidence of inflammation or worrisome nodules. There is a 2 mm right upper lobe pulmonary nodule present (5:296) not seen at the time of the prior study. No bullous changes of COPD are seen. MEDIASTINUM: Thyroid is unremarkable. Calcific plaque present in the aorta without aneurysm. CORONARY ARTERY CALCIFICATION: Minimal present. PLEURA: There is no pleural effusion. No pleural mass or thickening. AXILLA: No lymphadenopathy. UPPER ABDOMEN: Some punctate calcifications again noted in the right adrenal gland. OSSEOUS STRUCTURES: Unremarkable. CT/CT chest wo IV con IMPRESSION: No evidence of pneumonia. If pneumonia had been present, this has cleared. Stable 2 mm right upper lobe pulmonary nodule. Per the 2017 revised Fleischner Society guidelines, no followup needed if patient is low-risk. Non-contrast chest CT can be considered in 12 months if patient is high-risk. Other incidental findings as described above. Fleischner guidelines were followed.
== END 2023-09-08 10:01 | disposition home or self-care (01) ==
LOC: HO.CT 10:00
PROVIDERS: PCP Registered Nurse; Visit Provider Hospitalist
DX: R91.8 Other nonspecific abnormal finding of lung field (principal); J98.4 Other disorders of lung
CPT/HCPCS: 71250

== ENCOUNTER 2023-10-11 09:00 | Outpatient (AMB) | payer OTHER, SELFPAY ==
--- NOTE | 2023-10-11 09:20 | A.OFFVIS_ITS ---
Intake VS Expanded 10/11/23 09:31 BP 186/82 H Blood Pressure Location Rt brachial Blood Pressure Position Sitting Pulse 60 Pulse Source Pulse Oximeter Temp 97.9 F Temperature Source Temporal Artery Scan Pulse Oximetry 98 Oxygen Delivery Method Room Air Height 5 ft 8 in Weight 166 lb 6.4 oz BMI 25.3 Body Fat % 9.4 Body Fat Mass 15.6 Fat Free Mass 150.6 Visceral Fat Rating 4.0 Body Water % 64.1 Body Water Mass 106.4 Muscle Mass/Score 143.0 Basal Metabolic Rate/Score 1,924 Intake Visit Reasons: (OV) PO LSG 06/25/21 Manager User Interface Required: Yes Manager User Interface Name: office cmi Allergies aspirin [Aspirin] Allergy (Mild, Verified 10/11/23 09:25) SWELLING Penicillins Allergy (Mild, Verified 10/11/23 09:25) SWELLING Medication List - Last Reconciled 10/11/23 by JUAN Shirley acetaminophen (Tylenol Extra Strength) 1,000 mg (2 x 500 mg) PO Q6H PRN albuterol sulfate 90 mcg/actuation 2 inhalations inhalation Q6H PRN 30 days apixaban (Eliquis DVT-PE Treat 30D Start) 5 mg PO BID ascorbic acid (vitamin C) 250 mg PO QAM atorvastatin 20 mg PO BEDTIME [celebrate MVI PO DAILY] cholecalciferol (vitamin D3) 50 mcg PO DAILY cyclobenzaprine 5 mg PO BEDTIME PRN ferrous sulfate 325 mg PO DAILY fluticasone propion-salmeterol 100-50 mcg/dose 1 ea inhalation BID [id number] 100-62.5-25 mcg (Trelegy Ellipta) 1 inh inhalation DAILY 30 days ipratropium-albuterol 0.5 mg-3 mg(2.5 mg base)/3 mL 3 mL inhalation Q6H PRN ipratropium-albuterol 0.5 mg-3 mg(2.5 mg base)/3 mL 3 mL inhalation BID 30 days lidocaine 5% 1 patch topical DAILY PRN nebulizers As directed omeprazole 20 mg PO DAILY pen needle, diabetic As directed thiamine HCl (vitamin B1) 100 mg PO DAILY tiotropium bromide 1 cap inhalation DAILY tramadol 50 mg PO Q12H PRN vitamin A palmitate 10,000 units PO DAILY zinc gluconate 10 mg PO DAILY HPI HPI Comments History of Present Illness Details 68-year-old male [facility] status post sleeve gastrectomy performed 06/25/[address] Park. His approximately 2 years 3.5 months postoperatively. He was last seen in the office 03/30/2023. At that time, his weight was 166 lb with a BMI of 23.8. Weight today is 166.6 lb with a BMI of 23.9. He is doing well and offers no complaint. Goes to day program daily. Meal plan: 2 eggs, sometimes pancakes fish, rice and beans sometimes porkchops same as lunch or prepared meal 16 oz water Exercise Luz Elena class daily [facility] Medical History Chronic restrictive lung disease Pulmonary nodules COVID-19 vaccine series completed Arthritis Asthma Vitamin D deficiency HLD (hyperlipidemia) T2DM (type 2 diabetes mellitus) Anxiety Depression Venous insufficiency Hypertension COPD (chronic obstructive pulmonary disease) Surgical History History of repair of hiatal hernia Status post laparoscopic sleeve gastrectomy History of esophagogastroduodenoscopy (EGD) History of umbilical hernia repair H/O colonoscopy with polypectomy Family History Father CVD (cardiovascular disease) Heart disease Mother Heart disease CVD (cardiovascular disease) Brother Cancer Brother Cancer Brother Heart attack Sister CVD (cardiovascular disease) Diabetes mellitus Hypertension Arthritis Social History Are you a primary career development facilitator to a significant other at home: No Do you presently have visiting nurse or other home services: Yes ([employer]-daughter) Alcohol intake: never Comment: no facial grimacing, medicated in pacu numerous times, pain scale explained Patient Tobacco Use Status: Former Tobacco user Quit Date: age 19 Tobacco use type: Cigarette Advance Directives Date on File: 06/27/21 service: No Current occupational status: unemployed Physical Exam Const General: healthy appearing and no acute distress Resp Effort & Inspection: normal respiratory effort Auscultation: clear to auscultation bilaterally Cardio Rate: regular rate Rhythm: regular rhythm GI Auscultation: normal bowel sounds Extrem General: Yes normal to inspection Assessment & Plan Assessment & Plan (1) Overweight: Code(s): E66.3 - Overweight Plan: As he is limited in his cooking ability, we recommend him having 1 ensure ready to drink protein supplement daily. He was encouraged to have less rice and pancakes although, again, he is somewhat limited in his choices as he attends a day program daily. Encouraged to drink more water with a goal of 48-64 oz daily. He was made aware that some of the foods he is eating are high in salt and was encouraged to avoid prepared meals if he can. Return to the office in approximately 3 months Coding Level of Care Code Est Pt Level 3 (18898) Diagnoses Overweight E66.3
[2023-10-11 09:31] VITALS: BP 186/82; PULSE 60; TEMP 36.6; O2SAT 98; BMI 25.3
== END 2023-10-11 09:51 | disposition home or self-care (01) ==
PROVIDERS: PCP Registered Nurse; Visit Provider Physician Assistant Surgical
DX: E66.3 Overweight (principal)
CPT/HCPCS: 99213

== ENCOUNTER → 2023-10-11 09:00 | Outpatient (BNVA) | payer OTHER, SELFPAY | PROVIDERS: PCP Registered Nurse; Visit Provider Physician Assistant Surgical | DX: E66.3 Overweight (principal); Z98.84 Bariatric surgery status; Z68.25 Body mass index [BMI] 25.0-25.9, adult | CPT/HCPCS: 99212 ==

== ENCOUNTER 2023-10-18 10:32 | Outpatient (AMB) | payer OTHER, SELFPAY ==
--- NOTE | 2023-10-18 10:42 | MHC.OFFVIS ---
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 The patient was evaluated by in 09/2022 at the [facility] when he was noted to the a DVT and a CTA with +PE. The patient has been on Eliquis. BAck in November 2022, the patient was evaluated with respiratory complaints and treated for pneumonia. Now the patient is feeling better. Does use his Advair and Spiriva. He also has a nebulizer. He does complain of mild dyspnea on exertion. Denies any chest pains, has intermittent cough. I do think that we need to simply his regimen some because all the inhalers has made it difficult for him to know which ones to use. He does continue to tolerate the Eliquis. At this point it appears that he has unprovoked PE and therefore has a higher risk for recurrent clots in the future. If his PFTs are abnormal, then we will request additional imaging studies to assess the clots. 07/05/2023 the patient is here for a pulmonary follow-up visit. He continues on the Eliquis twice a day. He is tolerating the medicine well without any evidence of any bleeding. He denies any significant shortness of breath. He did switch over to the Trelegy inhaler and has been affecting beneficial. He does have a rescue inhaler he has not required. The patient did have PFTs. Appears that his PFTs are significantly abnormal with a moderate restrictive process. Also has a diffusion impairment. Will I did review his last CT scan of the chest that was done back in September 2022 and demonstrates some nodularity on the right hemithorax close to the periphery of the right lung at the base. Based on his unprovoked clots significant weight loss and abnormal PFTs will request a repeat CT scan to assess those nodular densities noted on my review of the CT scan. I spoke to the patient and his daughter they agree with plan will plan to repeat the CT scan September 2023 will follow-up in October. The patient develops any worsening symptoms prior to that he will call the office. In the meantime will continue the Eliquis 5 mg twice a day. If all is well then we will consider decreasing the Eliquis to 2.5 twice a day. 10/18/2023 the patient is here for pulmonary follow-up visit. Overall the patient has been doing well from a respiratory status. He continues to tolerate the Trelegy well. He also continues to stay active walking. He recently went on a trip to [place]. He tolerated well. Still has significant lower extremity edema when he came back from [place] his legs were worse. He does have a device to help him with the lower extremity edema in the home. They are getting better already. He has been on the Eliquis 5 mg twice a day for the blood clots. We did talk about considering decreasing the dose 2.2 0.5 twice a day. However, he is not having any adverse effects to the 5 mg dose plus he has significant lower extremity edema with stagnant blood flow increasing her risk for blood clots. Therefore will continue with the 5 mg twice a day as lung scan tolerated. We did review his CT scan of the chest. He has a small 2 mm pulmonary nodule that will require follow-up in a year's time. In addition to that no clear explanation for the patient's restrictive lung disease noted on PFT. Possibly abnormal muscular component. [facility] Medical History Chronic restrictive lung disease Pulmonary nodules COVID-19 vaccine series completed Arthritis Asthma Vitamin D deficiency HLD (hyperlipidemia) T2DM (type 2 diabetes mellitus) Anxiety Depression Venous insufficiency Hypertension COPD (chronic obstructive pulmonary disease) Surgical History History of repair of hiatal hernia Status post laparoscopic sleeve gastrectomy History of esophagogastroduodenoscopy (EGD) History of umbilical hernia repair H/O colonoscopy with polypectomy Family History Father CVD (cardiovascular disease) Heart disease Mother Heart disease CVD (cardiovascular disease) Brother Cancer Brother Cancer Brother Heart attack Sister CVD (cardiovascular disease) Diabetes mellitus Hypertension Arthritis Social History Are you a primary district manager primary care sales to a significant other at home: No Do you presently have visiting nurse or other home services: Yes (CRM DEVELOPER-daughter) Alcohol intake: never Comment: no facial grimacing, medicated in pacu numerous times, pain scale explained Patient Tobacco Use Status: Former Tobacco user Quit Date: age 19 Tobacco use type: Cigarette Advance Directives Date on File: 06/27/21 service: No Current occupational status: unemployed Review of Systems Const Denies fatigue, Denies fever(s) and Reports weight loss ENT Reports no additional complaints Card Denies chest pain, Denies chest pain at rest and Denies chest pain with activity Resp Denies chest congestion, Reports cough and Denies wheezing GI Reports no additional complaints Musc Details: pain over varicosities, aching of lower extremities, swelling, cramping, heaviness and tiredness, itching Denies abnormal gait Skin/Breast Reports pruritus and Denies wounds Neuro Reports no additional complaints and Denies abnormal gait Psych Denies no additional complaints Endo Denies fatigue Russell/Lymph Denies easy bleeding, Denies easy bruising and Denies lymphadenopathy Aller/Immun Denies wheezing Physical Exam Vital Signs: Last Vital Signs Pulse 75 10/18/23 10:45 BP 132/60 10/18/23 10:45 Pulse Ox 99 10/18/23 10:45 Oxygen Delivery Method Room Air 10/18/23 10:45 BMI result Body Mass Index 23.8 Const General: cooperative, healthy appearing and comfortable Orientation/consciousness: oriented to person, oriented to place and oriented to time HEENT Head: Yes normocephalic Neck Neck: Yes supple Carotids: no bruits Chest Chest palpation & inspection: normal inspection of the chest and normal palpation of entire chest wall Resp Effort & Inspection: normal respiratory effort and able to speak in complete sentences Auscultation: diminished lung sounds Cardio Rate: regular rate Heart sounds: S1 normal heart sound present and S2 normal heart sound present Peripheral pulses: Peripheral pulses 2+ throughout GI Inspection: Yes normal to inspection Skin General skin exam: dry skin Neuro General: oriented to person, oriented to place and oriented to time Extrem General: No clubbing, No cyanosis and Yes edema Right lower extremity: full ROM, normal capillary refill and edema Left lower extremity: full ROM, normal capillary refill and edema Psych Mental Status: mental status grossly normal Assessment & Plan Assessment & Plan (1) COPD (chronic obstructive pulmonary disease): Comment: stable with inhalers Code(s): J44.9 - Chronic obstructive pulmonary disease, unspecified Qualifiers: COPD type: chronic bronchitis Chronic bronchitis type: simple Qualified Code(s): J41.0 - Simple chronic bronchitis (2) Pulmonary embolism: Comment: unprovoked event. Lifelong anticoagulation is recommended. If he decides to stop the Eliquis after 6 months, then should have a ddimer checked after 4 weeks. After a year of anticoagulation (09/2023) he can also consider half dose Eliquis 2.5mg BID, but with LE edema will continue full dose Code(s): I26.99 - Other pulmonary embolism without acute cor pulmonale Qualifiers: Pulmonary embolism type: multiple subsegmental (without acute cor pulmonale) Qualified Code(s): I26.94 - Multiple subsegmental pulmonary emboli without acute cor pulmonale (3) Chronic restrictive lung disease: Code(s): J98.4 - Other disorders of lung (4) Pulmonary nodules: Code(s): R91.8 - Other nonspecific abnormal finding of lung field Plan continue Trelegy daily for better adherence ONIEL as needed CT chest in 1 year continue Eliquis 5mg BID F/U 6 months Orders: Orders CT chest wo IV con 364 Days R91.8 - Other nonspecific abnormal finding of lung field Coding Level of Care Code Est Pt Level 4 (05965) Diagnoses Simple chronic bronchitis J41.0 COPD type: chronic bronchitis Chronic bronchitis type: simple Multiple subsegmental pulmonary emboli without acute cor pulmonale I26.94 Pulmonary embolism type: multiple subsegmental (without acute cor pulmonale) Chronic restrictive lung disease J98.4 Pulmonary nodules R91.8 Time Spent (min) 17
[2023-10-18 10:45] VITALS: BP 132/60; PULSE 75; O2SAT 99; BMI 23.8
== END 2023-10-18 11:03 | disposition home or self-care (01) ==
PROVIDERS: PCP Registered Nurse; Visit Provider Hospitalist
DX: J41.0 Simple chronic bronchitis (principal); I26.94 Multiple subsegmental thrombotic pulmonary emboli without acute cor pulmonale; J98.4 Other disorders of lung; R91.8 Other nonspecific abnormal finding of lung field
CPT/HCPCS: 99214

== ENCOUNTER → 2023-10-18 10:32 | Outpatient (BNVA) | payer OTHER, SELFPAY | PROVIDERS: PCP Registered Nurse; Visit Provider Hospitalist | DX: J41.0 Simple chronic bronchitis (principal); J98.4 Other disorders of lung; R91.8 Other nonspecific abnormal finding of lung field; I26.94 Multiple subsegmental thrombotic pulmonary emboli without acute cor pulmonale | CPT/HCPCS: 99212 ==

== ENCOUNTER 2023-11-26 07:40 | Emergency (ER) | payer OTHER, SELFPAY ==
--- NOTE | ~2023-11-26 | XR_ITS ---
EXAMINATION: XR CHEST CLINICAL INFORMATION: Cough. COMPARISON: 02/02/2023 TECHNIQUE: Frontal view of the chest was obtained. FINDINGS: The lungs are well expanded. No focal consolidation. No pleural effusion. Cardiac silhouette is unchanged. XR/XR chest 1V IMPRESSION: No acute abnormality.
[2023-11-26 07:42] VITALS: BP 177/74; PULSE 65; RESP 16; TEMP 36.6; O2SAT 98; BMI 27.1
[2023-11-26 08:34] VITALS: BP 138/66; PULSE 60; RESP 14; O2SAT 100
--- NOTE | 2023-11-26 08:37 | ED_ITS ---
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 No fevers but he did have some chills. He states his day program made him come and get a test. He is eating and drinking maik BELLA elicited complaint: cough and sore throat Onset (ago): day(s) (1) Consistency: constant Severity: mild Description of mucous: clear Able to tolerate fluids by mouth: Yes Exacerbating factors: swallowing Relieving factors: nothing Associated symptoms: sore throat and cough Treatments prior to arrival: none Related Data Home Medications Medication Instructions Recorded Confirmed atorvastatin 20 mg tablet 20 mg PO BEDTIME 11/04/20 10/11/23 ferrous sulfate 325 mg (65 mg 325 mg PO DAILY 11/04/20 10/11/23 iron) tablet,delayed release ascorbic acid (vitamin C) 250 mg 250 mg PO QAM 04/23/21 10/11/23 tablet fluticasone 100 mcg-salmeterol 50 1 ea inhalation BID 04/23/21 10/11/23 mcg/dose blistr powdr for inhalation pen needle, diabetic 32 gauge x #50 ea 04/23/21 10/11/23 5/32 tiotropium bromide 18 mcg capsule 1 cap inhalation DAILY 04/23/21 10/11/23 with inhalation device tramadol 50 mg tablet 50 mg PO Q12H PRN 12/26/21 10/11/23 celebrate MVI PO DAILY 04/20/22 10/11/23 omeprazole 20 mg capsule,delayed 20 mg PO DAILY 07/28/22 10/11/23 release nebulizers 03/09/23 10/11/23 Previous Rx's Medication Instructions Recorded ipratropium 0.5 mg-albuterol 3 mg 3 ml inhalation Q6H PRN shortness 09/12/20 (2.5 mg base)/3 mL nebulization of breath or wheezing #15 mL soln acetaminophen 500 mg tablet 1,000 mg (2 x 500 mg) PO Q6H PRN 06/16/21 (Tylenol Extra Strength) pain #30 tabs thiamine HCl (vitamin B1) 100 mg 100 mg PO DAILY #30 tabs 01/05/22 tablet cyclobenzaprine 5 mg tablet 5 mg PO BEDTIME PRN muscle spasm 06/26/22 #10 tabs lidocaine 5 % topical patch 1 patch topical DAILY PRN pain #15 06/26/22 ea apixaban 5 mg (74 tabs) tablets in 5 mg PO BID #74 ea 09/22/22 a dose pack (WOWIO DVT-PE Treat 30D Start) albuterol sulfate 90 mcg/actuation 2 inh inhalation Q6H PRN shortness 03/09/23 aerosol inhaler of breath or wheezing 30 days #18 grams fluticasone fur. 100 mcg-umeclid 1 inh inhalation DAILY 30 days #60 03/09/23 62.5 mcg-vilant 25 mcg ea inhalat.powder (Trelegy Ellipta) ipratropium 0.5 mg-albuterol 3 mg 3 ml inhalation BID 30 days #180 mL 03/09/23 (2.5 mg base)/3 mL nebulization soln cholecalciferol (vitamin D3) 50 50 mcg PO DAILY #90 caps 05/12/23 mcg (2,000 unit) capsule vitamin A palmitate 3,000 mcg 10,000 unit PO DAILY #90 caps 05/12/23 (10,000 unit) capsule zinc gluconate 10 mg lozenges 10 mg PO DAILY #100 ea 05/12/23 Allergies Allergy/AdvReac Type Severity Reaction Status Date / Time aspirin [Aspirin] Allergy Mild SWELLING Verified 10/18/23 10:47 Penicillins Allergy Mild SWELLING Verified 10/18/23 10:47 Review of Systems Review of Systems: Constitutional : No Fever, pos Chills, No Fatigue ENT/Mouth : pos sore throat, No Rhinorrhea Eyes: No Eye Pain, No Swelling, No Redness Cardiovascular : No Chest Pain, No SOB, No Dyspnea on Exertion Respiratory : pos Cough, No Sputum Gastrointestinal : No Nausea, No Vomiting, No Diarrhea, No abdominal Pain Genitourinary : No Dysuria, No Urinary Frequency, No Hematuria, Musculoskeletal : No joint pain, No Myalgias, No Joint Swelling Skin : No Skin Lesions, No rash Neuro : No Weakness, No Numbness, No Dizziness, no Headache Psych : No Anxiety/Panic, No Depression All other systems reviewed and are negative PMFSH Past Medical History Attestation statement: The following information was validated with the patient. Source: old records reviewed Onset Date is defined in the Problem List Problems that require an onset date and time if occurred within 24 hrs of arrival to the ED Aortic Dissection and Rupture; Neurologic impairment; Cardiopulmonary Arrest; Endotracheal Intubation; Insertion or Replacement of Mechanical Circulatory Assist Device Medical History Chronic restrictive lung disease Pulmonary nodules COVID-19 vaccine series completed Arthritis Asthma Vitamin D deficiency HLD (hyperlipidemia) T2DM (type 2 diabetes mellitus) Anxiety Depression Venous insufficiency Hypertension COPD (chronic obstructive pulmonary disease) Surgical History History of repair of hiatal hernia Status post laparoscopic sleeve gastrectomy History of esophagogastroduodenoscopy (EGD) History of umbilical hernia repair H/O colonoscopy with polypectomy Family History Family History Father CVD (cardiovascular disease) Heart disease Mother Heart disease CVD (cardiovascular disease) Brother Cancer Brother Cancer Brother Heart attack Sister CVD (cardiovascular disease) Diabetes mellitus Hypertension Arthritis Social History Social History Are you a primary health care analyst to a significant other at home: No Do you presently have visiting nurse or other home services: Yes (OUTREACH EDUCATOR-daughter) Alcohol intake: never Comment: no facial grimacing, medicated in pacu numerous times, pain scale explained Patient Tobacco Use Status: Former Tobacco user Quit Date: age 19 Tobacco use type: Cigarette Smoked in Last 30 Days: No Use of substances other than those prescribed or required for medical reasons: No Advance Directives: Yes Advance Directives Information Provided: Yes Advance Directives on File: No Advance Directives Date on File: 06/27/21 service: No Current occupational status: unemployed Physical Exam Vital Signs: Vital Signs: Last Vital Signs Temp 97.9 F 11/26/23 07:42 Pulse 60 11/26/23 08:34 Resp 14 11/26/23 08:34 BP 138/66 11/26/23 08:34 Pulse Ox 100 11/26/23 08:34 O2 Del Method Room Air 11/26/23 08:34 BMI result Body Mass Index 27.1 Appearance: Alert. Oriented X3. No acute distress. Eyes: Pupils equal, round and reactive to light. ENT: Pharynx mild erythema no exudates normal voice no stridor or drooling Neck: Normal inspection. Neck supple. CVS: Normal heart rate and rhythm. Pulses normal. Respiratory: No respiratory distress. Breath sounds normal. Abdomen: Soft and nontender. Skin: Skin warm and dry. Normal skin color. Normal skin turgor. Extremities: No lower extremity edema. No calf ttp Neuro: Oriented X 3. No motor deficit. No sensory deficit. Medical Decision Making Medical Decision Making [facility] Narrative: 68 yo male with PMH of DVT on eliquis, COPD, lymphedema, DM, HLD, anxiety, depression, HTN here with c/o sore throat and cough at this time will need viral panel and CXR he is not toxic and he has no CP/SOB to suggest ACS his lungs are clear and he is not hypoxic. He has no signs of deeper space infection on exam in the throat and has normal ROM of the neck. Differential Diagnosis Differential Diagnoses: The differential diagnosis associated with the presentation includes strep throat, viral syndrome, bronchitis, pneumonia Admission/Observation Consideration of admission/observation: Escalation of care including admission/observation considered not toxic, no CP/SOB, no hypoxia stable for DC Lab Data [facility] Lab Attestation statement: I reviewed the patient's lab results. Labs: Lab Results 11/26/23 Range/Units 08:30 COVID-19 (JONATHAN) Negative (Negative) COVID-19 Clin Com See Note Influenza Type A (BECK) Negative (Negative) Influenza Type B (BECK) Negative (Negative) Influenza A & B Note See Note S. pyogenes GrpA BECK Negative (Negative) Independent Interpretation I performed an independent interpretation of an: Plain X-Ray Radiology Impression Discussion of test interpretation with radiology: I have reviewed the radiologist's reading. External Record Review External record reviewed: Inpatient record Discharge Plan Discharge Clinical Impression: Acute upper respiratory infection Patient Disposition: Home, Self-Care Instructions: Upper Respiratory Infection (ED) Additional Instructions: return for worsening symptoms, chest pain, you are so short of breath you cannot walk to your bathroom, stay hydrated. take tylenol for aches and fevers. NEGATIVE FOR FLU, COVID, STREP, NORMAL CHEST XRAY Regrese si los s?ntomas empeoran, dolor en el pecho, tiene tanta falta de aire que no puede caminar hasta el ba?o, mant?ngase hidratado. tome tylenol para los ricardo y la fiebre. Prescriptions: No Action thiamine HCl (vitamin B1) 100 mg tablet 100 mg PO DAILY Qty: 30 2RF cholecalciferol (vitamin D3) 50 mcg (2,000 unit) capsule 50 mcg PO DAILY Qty: 90 3RF vitamin A palmitate 3,000 mcg (10,000 unit) capsule 10,000 unit PO DAILY Qty: 90 3RF zinc gluconate 10 mg lozenge 10 mg PO DAILY Qty: 100 3RF ipratropium-albuterol 0.5 mg-3 mg(2.5 mg base)/3 mL solution for nebulization 3 ml inhalation Q6H PRN (Reason: shortness of breath or wheezing) Qty: 15 0RF lidocaine 5 % adhesive patch,medicated 1 patch topical DAILY PRN (Reason: pain) Qty: 15 0RF Rx Instructions: leave on most painful area for up to 12 hrs cyclobenzaprine 5 mg tablet 5 mg PO BEDTIME PRN (Reason: muscle spasm) Qty: 10 0RF Eliquis DVT-PE Treat 30D Start 5 mg (74 tabs) tablets,dose pack 5 mg PO BID Qty: 74 0RF Rx Instructions: Take 10 mg p.o. b.i.d. x7 days then 5 mg b.i.d. for DVT ferrous sulfate 325 mg (65 mg iron) tablet,delayed release (DR/EC) 325 mg PO DAILY atorvastatin 20 mg tablet 20 mg PO BEDTIME acetaminophen [Tylenol Extra Strength] 500 mg tablet 1,000 mg PO Q6H PRN (Reason: pain) Qty: 30 1RF tramadol 50 mg tablet 50 mg PO Q12H PRN tiotropium bromide 18 mcg capsule, w/inhalation device 1 cap inhalation DAILY fluticasone propion-salmeterol 100-50 mcg/dose blister with device 1 ea inhalation BID ascorbic acid (vitamin C) 250 mg tablet 250 mg PO QAM (DME) pen needle, diabetic 32 gauge x needle See Rx Instructions .ROUTE .MEDSUPPLY Qty: 50 Rx Instructions: As directed celebrate MVI PO DAILY (DME) nebulizers Misc See Rx Instructions .Route Rx Instructions: As directed Trelegy Ellipta 100-62.5-25 mcg blister with device 1 inh inhalation DAILY 30 Days Qty: 60 11RF ipratropium-albuterol 0.5 mg-3 mg(2.5 mg base)/3 mL solution for nebulization 3 ml inhalation BID 30 Days Qty: 180 11RF albuterol sulfate 90 mcg/actuation HFA aerosol inhaler 2 inh inhalation Q6H PRN (Reason: shortness of breath or wheezing) 30 Days Qty: 18 12RF omeprazole 20 mg capsule,delayed release(DR/EC) 20 mg PO DAILY Print Language: Ukrainian
[2023-11-26 09:03] LABS: IDNOW Serial# 6674DD1D; Strep A Nucleic Acid Negative (Negative)
[2023-11-26 09:11] LABS: COVID-19 Test Negative (Negative); IDNOW Serial# 08D9AD1C; IDNOW Serial# 58CA691E; Influenza A Negative (Negative); Influenza B2 Negative (Negative)
== END 2023-11-26 09:40 | disposition home or self-care (01) ==
PROVIDERS: Emergency Provider Emergency Medicine
DX: J06.9 Acute upper respiratory infection, unspecified (principal); J02.9 Acute pharyngitis, unspecified; Z11.52 Encounter for screening for COVID-19; E11.9 Type 2 diabetes mellitus without complications; I10 Essential (primary) hypertension; E78.5 Hyperlipidemia, unspecified; Z86.718 Personal history of other venous thrombosis and embolism; Z79.01 Long term (current) use of anticoagulants; Z79.02 Long term (current) use of antithrombotics/antiplatelets; Z79.899 Other long term (current) drug therapy
CPT/HCPCS: 71045; 87502; 87635; 87651; 99283; 99284

== ENCOUNTER 2023-12-08 12:14 | Outpatient (REF) | payer OTHER, SELFPAY ==
[2023-12-08 13:14] LABS: MANUAL DIFF FLAG NO
[2023-12-08 13:19] LABS: Basophils Percent Auto 0.5 % (0-2); Eosinophils Absolute Auto 0.1 X10*3/uL (0.0-0.4); Eosinophils Percent Auto 3.1 % (0-4); Hematocrit 37.3 % (42.0-52.0); Hemoglobin 11.8 g/dl (14.0-18.0); Imm Gran Abs Auto 0.01 X10*3/uL (0.00-0.03); Imm Gran Pct Auto 0.2 % (0.0-0.4); Lymphocytes Absolute Auto 1.4 X10*3/uL (1.2-4.9); Lymphocytes Percent Auto 32.9 % (20-40); Mean Corpuscular HGB Conc 31.6 g/dl (31.0-36.0); Mean Corpuscular Hemoglobin 30.6 pg (27.0-33.0); Mean Corpuscular Volume 96.6 fL (80.0-98.0); Mean Platelet Volume 10.3 fL (9.4-12.4); Monocytes Absolute Auto 0.4 X10*3/uL (0.1-1.2); Monocytes Percent Auto 8.8 % (2-11); Neutrophils Absolute Auto 2.3 x10*3/uL (2.0-8.3); Neutrophils Percent Auto 54.5 % (45-73); Platelet Count 245 X10*3/uL (160-400); Red Blood Count 3.86 X10*6/uL (4.60-5.80); Red Cell Distribution Width 12.1 % (11.0-16.0); White Blood Count 4.2 X10*3/uL (4.8-10.8)
[2023-12-08 13:34] LABS: Alanine Aminotransferase 11 U/L (0-40); Albumin Level 3.7 g/dL (3.5-5.0); Alkaline Phosphatase 121 U/L (39-117); Anion Gap 11 (12-20); Aspartate Amino Transferase 19 U/L (5-37); Bilirubin Total 0.5 mg/dL (0.0-1.0); Blood Urea Nitrogen 16 mg/dL (9-16); Calcium 9.2 mg/dL (8.4-10.2); Carbon Dioxide 30 mmol/L (22-29); Chloride 105 mmol/L (96-108); Estimated Glomerular Filt Rate 58; Glucose Random 85 mg/dL (60-115); Potassium 4.6 mmol/L (3.3-5.1); Sodium 141 mmol/L (135-145); Total Protein 7.1 g/dL (6.5-8.0)
[2023-12-08 13:48] LABS: Prostate Specific Antigen 0.51 ng/mL (<0.05-4.0)
[2023-12-08 14:03] LABS: Creatinine Urine 109.71 mg/dL; Microalbum/Creatinine Ratio Ur 65.6 ug/mg cr (<30)
== END 2023-12-08 12:15 | disposition home or self-care (01) ==
LOC: HO.HHCL 12:14
PROVIDERS: Visit Provider Registered Nurse
DX: Z00.00 Encounter for general adult medical examination without abnormal findings (principal); E11.42 Type 2 diabetes mellitus with diabetic polyneuropathy; Z12.5 Encounter for screening for malignant neoplasm of prostate
CPT/HCPCS: 36415; 80053; 82043; 82570; 84153; 85025

== ENCOUNTER 2024-01-13 09:55 | Outpatient (AMB) | payer OTHER, SELFPAY ==
--- NOTE | 2024-01-13 10:07 | A.OFFVIS_ITS ---
Intake VS Expanded 01/13/24 10:13 BP 139/64 Blood Pressure Location Rt brachial Blood Pressure Position Sitting Pulse 81 Pulse Source Pulse Oximeter Temp 97.3 F Temperature Source Tympanic Pulse Oximetry 98 Oxygen Delivery Method Room Air Height 5 ft 10 in Weight 163 lb 12.8 oz BMI 23.5 Body Fat % 17.1 Body Fat Mass 28.0 Fat Free Mass 135.6 Visceral Fat Rating 11.0 Body Water % 60.0 Body Water Mass 98.2 Muscle Mass/Score 128.8 Basal Metabolic Rate/Score 1,747 Intake Visit Reasons: (OV) PO LSG 06/25/21 Allergies aspirin [Aspirin] Allergy (Mild, Verified 01/13/24 10:16) SWELLING Penicillins Allergy (Mild, Verified 01/13/24 10:16) SWELLING Medication List - Last Reconciled 01/13/24 by JUAN Hayes acetaminophen (Tylenol Extra Strength) 1,000 mg (2 x 500 mg) PO Q6H PRN albuterol sulfate 90 mcg/actuation 2 inhalations inhalation Q6H PRN 30 days apixaban (Eliquis DVT-PE Treat 30D Start) 5 mg PO BID ascorbic acid (vitamin C) 250 mg PO QAM atorvastatin 20 mg PO BEDTIME [celebrate MVI PO DAILY] cholecalciferol (vitamin D3) 50 mcg PO DAILY cyclobenzaprine 5 mg PO BEDTIME PRN ferrous sulfate 325 mg PO DAILY fluticasone propion-salmeterol 100-50 mcg/dose 1 ea inhalation BID hpmydwcfxvl-sxqmfplem-hfmximsk 100-62.5-25 mcg (Trelegy Ellipta) 1 inh inhalation DAILY 30 days ipratropium-albuterol 0.5 mg-3 mg(2.5 mg base)/3 mL 3 mL inhalation Q6H PRN ipratropium-albuterol 0.5 mg-3 mg(2.5 mg base)/3 mL 3 mL inhalation BID 30 days lidocaine 5% 1 patch topical DAILY PRN nebulizers As directed omeprazole 20 mg PO DAILY pen needle, diabetic As directed thiamine HCl (vitamin B1) 100 mg PO DAILY tiotropium bromide 1 cap inhalation DAILY tramadol 50 mg PO Q12H PRN vitamin A palmitate 10,000 units PO DAILY zinc gluconate 10 mg PO DAILY HPI HPI Comments History of Present Illness Details This?is a?68?yo male who is s/p LSG 06/25/[address] Mccauley. Presents for 2.5 year post op visit. Weight at last visit on 10/11/2023 was 166.4 pounds, weight today is 163.8 pounds, representing a 2.6 pound weight loss with a BMI today of 26.4.? No complaints of nausea, emesis, abdominal pain, or constipation. Goes to a day program where he gets many of his meals. Now off Trulicity. Checks blood sugars at home sometimes , reports relatively good control- fasting may be 90-105. Reports reflux occurs if he eats too quickly. Present meal plan includes: 2 eggs, sometimes pancakes fish, rice and beans sometimes pork chops same as lunch or prepared meal at last visit was recommended to have one RTD shake like Ensure per day to help meet protein goals- pt reports he has been doing this but does not care for the flavor 16 oz water Exercise Luz Elena class daily walks on a treadmill, does weight training [facility] Medical History Chronic restrictive lung disease Pulmonary nodules COVID-19 vaccine series completed Arthritis Asthma Vitamin D deficiency HLD (hyperlipidemia) T2DM (type 2 diabetes mellitus) Anxiety Depression Venous insufficiency Hypertension COPD (chronic obstructive pulmonary disease) Surgical History History of repair of hiatal hernia Status post laparoscopic sleeve gastrectomy History of esophagogastroduodenoscopy (EGD) History of umbilical hernia repair H/O colonoscopy with polypectomy Family History Father CVD (cardiovascular disease) Heart disease Mother Heart disease CVD (cardiovascular disease) Brother Cancer Brother Cancer Brother Heart attack Sister CVD (cardiovascular disease) Diabetes mellitus Hypertension Arthritis Social History Are you a primary plant care worker to a significant other at home: No Do you presently have visiting nurse or other home services: Yes (FELLER SEAM OPERATOR-daughter) Alcohol intake: never Comment: no facial grimacing, medicated in pacu numerous times, pain scale explained Patient Tobacco Use Status: Former Tobacco user Quit Date: age 19 Tobacco use type: Cigarette Advance Directives Date on File: 06/27/21 service: No Current occupational status: unemployed Assessment & Plan Assessment & Plan (1) Overweight: Code(s): E66.3 - Overweight (2) Status post laparoscopic sleeve gastrectomy: Code(s): Z98.84 - Bariatric surgery status Plan Pt doing well maintaining weight loss 2.5 years postop. Has incorporated more p rotein into his daily meal plan; gave him list of other premade shakes to try. RTC in 6 months. Patient is at healthy BMI and is considered stable at this time. I spent a total of 30 minutes reviewing/updating records, examining the patient and counseling the patient on weight management as detailed above. Medications: New simethicone (Gas Relief (simethicone)) 80 mg PO BID-QID PRN 90 tabs 3RF abdominal distention Coding Level of Care Code Est Pt Level 4 (07044) Diagnoses Overweight E66.3 Status post laparoscopic sleeve gastrectomy Z98.84
[2024-01-13 10:13] VITALS: BP 139/64; PULSE 81; TEMP 36.3; O2SAT 98; BMI 23.5
== END 2024-01-13 10:34 | disposition home or self-care (01) ==
PROVIDERS: PCP Registered Nurse; Visit Provider Physician Assistant Surgical
DX: E66.3 Overweight (principal); Z98.84 Bariatric surgery status
CPT/HCPCS: 99214

== ENCOUNTER → 2024-01-13 09:55 | Outpatient (BNVA) | payer OTHER, SELFPAY | PROVIDERS: PCP Registered Nurse; Visit Provider Physician Assistant Surgical | DX: E66.3 Overweight (principal); Z98.84 Bariatric surgery status; Z68.23 Body mass index [BMI] 23.0-23.9, adult | CPT/HCPCS: 99212 ==

== ENCOUNTER 2024-02-04 10:50 | Outpatient (AMB) | payer OTHER, SELFPAY ==
[2024-02-04 10:58] VITALS: BP 128/60; PULSE 85; O2SAT 98; BMI 24.3
--- NOTE | 2024-02-04 10:58 | HO.NEPHOV_ITS ---
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 He has H/O hypertension and was on ACEI in the past but was taken off it when he developed low blood pressures. He is a diabetic on insulin. He had high BMI and underwent gastric surgery with significant weight loss.He has H/O very mild proteinuria. He has no H/O malignancies. He denies epistaxis, photosensitivity, new skin rashes, edema, hematuria, recurrent sore throat, new bone or back pain. He is not on any SGLT2 i. He takes Vitamin C and PPI daily. He tries to avoid NSAID's and maintain good hydration. His HbA1c has been very good. ON LICENSE OF [facility] Medical History Chronic restrictive lung disease Pulmonary nodules COVID-19 vaccine series completed Arthritis Asthma Vitamin D deficiency HLD (hyperlipidemia) T2DM (type 2 diabetes mellitus) Anxiety Depression Venous insufficiency Hypertension COPD (chronic obstructive pulmonary disease) Surgical History History of repair of hiatal hernia Status post laparoscopic sleeve gastrectomy History of esophagogastroduodenoscopy (EGD) History of umbilical hernia repair H/O colonoscopy with polypectomy Family History Father CVD (cardiovascular disease) Heart disease Mother Heart disease CVD (cardiovascular disease) Brother Cancer Brother Cancer Brother Heart attack Sister CVD (cardiovascular disease) Diabetes mellitus Hypertension Arthritis Social History Are you a primary hospice care sales consultant to a significant other at home: No Do you presently have visiting nurse or other home services: Yes (DIESEL TRUCK CRANE OPERATOR-daughter) Alcohol intake: never Comment: no facial grimacing, medicated in pacu numerous times, pain scale explained Patient Tobacco Use Status: Former Tobacco user Quit Date: age 19 Tobacco use type: Cigarette Advance Directives Date on File: 06/27/21 service: No Current occupational status: unemployed Physical Exam Vital Signs: Last Vital Signs Pulse 85 02/04/24 10:58 BP 128/60 02/04/24 10:58 Pulse Ox 98 02/04/24 10:58 Oxygen Delivery Method Room Air 02/04/24 10:58 BMI result Body Mass Index 24.3 Const General: comfortable and no acute distress Orientation/consciousness: patient oriented x3 HEENT Head: Yes normocephalic Mouth: Normal oral and palatal mucosa present Eyes EOM: EOMs intact bilaterally Neck Neck: Yes supple Resp Auscultation: clear to auscultation bilaterally Cardio Jugular venous distension: no JVD Rate: regular rate GI Palpation (GI): Soft to palpation Auscultation: normal bowel sounds General: Yes no CVA tenderness Back/Spine/Pelvis Back: no CVA tenderness Skin General skin exam: no rashes or lesions noted Neuro General: patient oriented x3 and moves all extremities Extrem General: Yes no pedal edema Results Reviewed Nephrology Results: Hgb 11.8 g/dl (14.0-18.0) L 12/08/23 WBC 4.2 X10*3/uL (4.8-10.8) L 12/08/23 Plt Count 245 X10*3/uL (160-400) 12/08/23 Sodium 141 mmol/L (135-145) 12/08/23 Potassium 4.6 mmol/L (3.3-5.1) 12/08/23 Chloride 105 mmol/L (96-108) 12/08/23 Carbon Dioxide 30 mmol/L (22-29) H 12/08/23 BUN 16 mg/dL (9-16) 12/08/23 Creatinine 1.24 mg/dL (0.5-1.4) 12/08/23 Calcium 9.2 mg/dL (8.4-10.2) 12/08/23 Urine Creatinine 109.71 mg/dL 12/08/23 Assessment & Plan Assessment & Plan (1) CKD (chronic kidney disease) stage 3, GFR 30-59 ml/min: Code(s): N18.30 - Chronic kidney disease, stage 3 unspecified Category: Medical Qualifiers: Chronic kidney disease stage 3 subtype: stage 3a (GFR 45-59) Qualified Code(s): N18.31 - Chronic kidney disease, stage 3a Cori Roberts has CKD 3 and his renal functions are currently stable He has no significant proteinuria. His CKD is likely from DM/H/o high BMI & HTN He had been on ACEI in the past which was discontinued due to low BP's He is not on any SGLT2 i. Work up ordered including imaging Will do a 24 hour urine for cr cl and protein with time NO indication for renal biopsy now. No NSAID's; Good hydration Minimize PPI if he can and reduce Vitamin C to 3/ week Continue current dose of statins; Answered all questions Follow up appointment given Orders: Orders Blood Urea Nitrogen 02/04/24 N18.30 - Chronic kidney disease, stage 3 unspecified Electrolytes 02/04/24 N18.30 - Chronic kidney disease, stage 3 unspecified Calcium 02/04/24 N18.30 - Chronic kidney disease, stage 3 unspecified Phosphorus 02/04/24 N18.30 - Chronic kidney disease, stage 3 unspecified Complete Blood Count Auto Diff 02/04/24 N18.30 - Chronic kidney disease, stage 3 unspecified Immunofixation Pnl, Serum 02/04/24 N18.30 - Chronic kidney disease, stage 3 unspecified Creatinine 02/04/24 N18.30 - Chronic kidney disease, stage 3 unspecified Parathyroid Hormone Intact 02/04/24 N18.30 - Chronic kidney disease, stage 3 unspecified Vitamin D 25-OH Total 02/04/24 N18.30 - Chronic kidney disease, stage 3 unspecified Protein Creatinine Ratio, Ur 02/04/24 N18.30 - Chronic kidney disease, stage 3 unspecified UA and rflx microscopic 02/04/24 N18.30 - Chronic kidney disease, stage 3 unspecified US renal BI 02/04/24 N18.30 - Chronic kidney disease, stage 3 unspecified
== END 2024-02-04 11:18 | disposition home or self-care (01) ==
PROVIDERS: PCP Registered Nurse; Visit Provider Internal Medicine Nephrology
DX: N18.31 Chronic kidney disease, stage 3a (principal)
CPT/HCPCS: 99204

== ENCOUNTER → 2024-02-04 10:50 | Outpatient (BNVA) | payer OTHER, SELFPAY | PROVIDERS: PCP Registered Nurse; Visit Provider Internal Medicine Nephrology | DX: I12.9 Hypertensive chronic kidney disease with stage 1 through stage 4 chronic kidney disease, or unspecified chronic kidney disease (principal); E11.22 Type 2 diabetes mellitus with diabetic chronic kidney disease; N18.31 Chronic kidney disease, stage 3a; Z79.4 Long term (current) use of insulin | CPT/HCPCS: 99202 ==

== ENCOUNTER 2024-03-08 12:26 | Outpatient (REF) | payer OTHER, SELFPAY ==
--- NOTE | ~2024-03-08 | US_ITS ---
EXAMINATION: US RETROPERITONEAL LIMITED (RENAL ONLY) CLINICAL INFORMATION: Chronic kidney disease, stage 3 unspecified. COMPARISON: CT abdomen and pelvis 10/03/2021. Ultrasound abdomen complete 04/06/2019. TECHNIQUE: Real-time imaging of the kidneys. FINDINGS: RIGHT KIDNEY: 10.8 x 5.3 x 6.4 cm (SAG x AP x TRV). The kidney is normal in size, contour, and echogenicity. Renal cortical thickness is normal. No calculi or focal parenchymal lesions. No hydronephrosis. LEFT KIDNEY: 11.3 x 4.3 x 4.5 cm (SAG x AP x TRV). The kidney is normal in size, contour, and echogenicity. Renal cortical thickness is normal. No renal calculi or hydronephrosis. 1.3 cm simple cyst in the mid kidney. No follow-up imaging is recommended. US/US renal BI IMPRESSION: Normal-appearing renal parenchyma. No hydronephrosis.
== END 2024-03-08 12:27 | disposition home or self-care (01) ==
LOC: HO.US 12:26
PROVIDERS: PCP Registered Nurse; Visit Provider Internal Medicine Nephrology
DX: N18.30 Chronic kidney disease, stage 3 unspecified (principal)
CPT/HCPCS: 76775

== ENCOUNTER 2024-03-13 09:50 | Outpatient (REF) | payer OTHER, SELFPAY ==
[2024-03-13 10:04] LABS: MANUAL DIFF FLAG NO
[2024-03-13 10:48] LABS: Basophils Percent Auto 0.8 % (0-2); Eosinophils Absolute Auto 0.1 X10*3/uL (0.0-0.4); Eosinophils Percent Auto 3.5 % (0-4); Hematocrit 39.6 % (42.0-52.0); Hemoglobin 12.9 g/dl (14.0-18.0); Imm Gran Abs Auto 0.01 X10*3/uL (0.00-0.03); Imm Gran Pct Auto 0.3 % (0.0-0.4); Lymphocytes Absolute Auto 1.3 X10*3/uL (1.2-4.9); Lymphocytes Percent Auto 35.2 % (20-40); Mean Corpuscular HGB Conc 32.6 g/dl (31.0-36.0); Mean Corpuscular Hemoglobin 31.6 pg (27.0-33.0); Mean Corpuscular Volume 97.1 fL (80.0-98.0); Mean Platelet Volume 10.8 fL (9.4-12.4); Monocytes Absolute Auto 0.2 X10*3/uL (0.1-1.2); Monocytes Percent Auto 5.4 % (2-11); Neutrophils Percent Auto 54.8 % (45-73); Platelet Count 194 X10*3/uL (160-400); Red Blood Count 4.08 X10*6/uL (4.60-5.80); Red Cell Distribution Width 11.9 % (11.0-16.0); White Blood Count 3.7 X10*3/uL (4.8-10.8)
[2024-03-13 11:16] LABS: Parathyroid Hormone Intact 87.7 pg/mL (8.7-77.1)
[2024-03-13 11:33] LABS: Anion Gap 11 (12-20); Blood Urea Nitrogen 15 mg/dL (9-16); Calcium 9.6 mg/dL (8.4-10.2); Carbon Dioxide 28 mmol/L (22-29); Chloride 106 mmol/L (96-108); Estimated Glomerular Filt Rate 51; Phosphorus 3.1 mg/dL (2.7-4.5); Potassium 3.8 mmol/L (3.3-5.1); Sodium 141 mmol/L (135-145); Vitamin D 25-OH Total 21.9 ng/mL (>30)
[2024-03-13 11:43] LABS: Appearance Urine Clear; Color Urine Yellow; Glucose Urine UA Negative (Negative); Leukocyte Esterase Urine Negative (Negative); Nitrite Urine Negative (Negative); Specific Gravity - Urine 1.015 (1.005-1.025); Urine Blood Negative (Negative); Urine Ketones Negative (Negative); Urine Protein Negative (Neg-Trace)
[2024-03-13 12:21] LABS: Creatinine Urine 97.69 mg/dL; Protein/Creatinine Ratio, Ur 0.14 (<0.2); Total Protein Urine Random 14 mg/dL (<12)
[2024-03-15 21:12] LABS: IgA 483 mg/dL (70-320); IgG 1250 mg/dL (600-1540); IgM 38 mg/dL (50-300)
== END 2024-03-13 09:51 | disposition home or self-care (01) ==
LOC: HO.LAB 09:50
PROVIDERS: PCP Registered Nurse; Visit Provider Internal Medicine Nephrology
DX: N18.30 Chronic kidney disease, stage 3 unspecified (principal)
CPT/HCPCS: 36415; 80051; 81003; 82306; 82310; 82565; 82570; 82784; 83970; 84100; 84156; 84520; 85025; 86334

== ENCOUNTER 2024-05-02 10:58 | Outpatient (AMB) | payer OTHER, SELFPAY ==
[2024-05-02 11:10] VITALS: BP 136/70; PULSE 65; O2SAT 99; BMI 25.5
--- NOTE | 2024-05-02 11:10 | MHC.OFFVIS ---
Vital Signs 05/02/24 11:10 Height 5 ft 10 in Weight 178 lb BMI 25.5 BP 136/70 Blood Pressure Location Lt brachial Position Sitting Pulse 65 Pulse Source Pulse Oximeter Pulse Oximetry (%) 99 Oxygen Delivery Method Room Air Intake Visit Reasons: COPD Real Estate Sales Associate Required: No Allergies aspirin [Aspirin] Allergy (Mild, Verified 05/02/24 11:13) SWELLING Penicillins Allergy (Mild, Verified 05/02/24 11:13) SWELLING HPI Comments Details: The patient is a 69 y/o man with a h/o COPD and pulmonary emboli currently on Eliquis. The patient was evaluated by in 09/2022 at the [facility] [place] [place] [facility] when he was noted to the a DVT and a CTA with +PE. The patient has been on Eliquis. BAck in November 2022, the patient was evaluated with respiratory complaints and treated for pneumonia. Now the patient is feeling better. Does use his Advair and Spiriva. He also has a nebulizer. He does complain of mild dyspnea on exertion. Denies any chest pains, has intermittent cough. I do think that we need to simply his regimen some because all the inhalers has made it difficult for him to know which ones to use. He does continue to tolerate the Eliquis. At this point it appears that he has unprovoked PE and therefore has a higher risk for recurrent clots in the future. If his PFTs are abnormal, then we will request additional imaging studies to assess the clots. 07/05/2023 the patient is here for a pulmonary follow-up visit. He continues on the Eliquis twice a day. He is tolerating the medicine well without any evidence of any bleeding. He denies any significant shortness of breath. He did switch over to the Trelegy inhaler and has been affecting beneficial. He does have a rescue inhaler he has not required. The patient did have PFTs. Appears that his PFTs are significantly abnormal with a moderate restrictive process. Also has a diffusion impairment. Will I did review his last CT scan of the chest that was done back in September 2022 and demonstrates some nodularity on the right hemithorax close to the periphery of the right lung at the base. Based on his unprovoked clots significant weight loss and abnormal PFTs will request a repeat CT scan to assess those nodular densities noted on my review of the CT scan. I spoke to the patient and his daughter they agree with plan will plan to repeat the CT scan September 2023 will follow-up in October. The patient develops any worsening symptoms prior to that he will call the office. In the meantime will continue the Eliquis 5 mg twice a day. If all is well then we will consider decreasing the Eliquis to 2.5 twice a day. 10/18/2023 the patient is here for pulmonary follow-up visit. Overall the patient has been doing well from a respiratory status. He continues to tolerate the Trelegy well. He also continues to stay active walking. He recently went on a trip to [place]. He tolerated well. Still has significant lower extremity edema when he came back from [place] his legs were worse. He does have a device to help him with the lower extremity edema in the home. They are getting better already. He has been on the Eliquis 5 mg twice a day for the blood clots. We did talk about considering decreasing the dose 2.2 0.5 twice a day. However, he is not having any adverse effects to the 5 mg dose plus he has significant lower extremity edema with stagnant blood flow increasing her risk for blood clots. Therefore will continue with the 5 mg twice a day as lung scan tolerated. We did review his CT scan of the chest. He has a small 2 mm pulmonary nodule that will require follow-up in a year's time. In addition to that no clear explanation for the patient's restrictive lung disease noted on PFT. Possibly abnormal muscular component. 05/02/2024 the patient is here for a pulmonary follow-up visit. Overall the patient has been doing well. Does complain some dyspnea on exertion [id number] severity. He responded well to the Trelegy but then stopped it because he said that he had no further refills. Will go ahead and some again to the pharmacy. He has not had to use his rescue inhaler either. The patient continues on the Eliquis with good effect. Continues use it twice a day. The patient did have a CT scan of the chest back in 09/27/2023 demonstrating subcentimeter pulmonary nodules. The patient does need a repeat CT scan at this time. Will plan to repeat the CT scan in November when he comes back from his trip and will go ahead and review the results when he follows up in the spring. If he has any worsening symptoms he will call for an earlier assessment. [facility] Medical History Chronic restrictive lung disease Pulmonary nodules COVID-19 vaccine series completed Arthritis Asthma Vitamin D deficiency HLD (hyperlipidemia) T2DM (type 2 diabetes mellitus) Anxiety Depression Venous insufficiency Hypertension COPD (chronic obstructive pulmonary disease) Surgical History History of repair of hiatal hernia Status post laparoscopic sleeve gastrectomy History of esophagogastroduodenoscopy (EGD) History of umbilical hernia repair H/O colonoscopy with polypectomy Family History Father CVD (cardiovascular disease) Heart disease Mother Heart disease CVD (cardiovascular disease) Brother Cancer Brother Cancer Brother Heart attack Sister CVD (cardiovascular disease) Diabetes mellitus Hypertension Arthritis Social History Are you a primary physician primary care sports medicine to a significant other at home: No Do you presently have visiting nurse or other home services: Yes (STAINING MACHINE OPERATOR-daughter) Alcohol intake: never Comment: no facial grimacing, medicated in pacu numerous times, pain scale explained Patient Tobacco Use Status: Former Tobacco user Tobacco use type: Cigarette Advance Directives Date on File: 06/27/21 service: No Current occupational status: unemployed Review of Systems Const Denies fatigue, Denies fever(s) and Reports weight loss ENT Reports no additional complaints Card Denies chest pain, Denies chest pain at rest and Denies chest pain with activity Resp Denies chest congestion, Reports cough and Denies wheezing GI Reports no additional complaints Musc Details: pain over varicosities, aching of lower extremities, swelling, cramping, heaviness and tiredness, itching Denies abnormal gait Skin/Breast Reports pruritus and Denies wounds Neuro Reports no additional complaints and Denies abnormal gait Psych Denies no additional complaints Endo Denies fatigue Russell/Lymph Denies easy bleeding, Denies easy bruising and Denies lymphadenopathy Aller/Immun Denies wheezing Physical Exam Vital Signs: Last Vital Signs Pulse 65 05/02/24 11:10 BP 136/70 05/02/24 11:10 Pulse Ox 99 05/02/24 11:10 Oxygen Delivery Method Room Air 05/02/24 11:10 BMI result Body Mass Index 25.5 Const General: cooperative, healthy appearing and comfortable Orientation/consciousness: oriented to person, oriented to place and oriented to time HEENT Head: Yes normocephalic Neck Neck: Yes supple Carotids: no bruits Chest Chest palpation & inspection: normal inspection of the chest Resp Effort & Inspection: normal respiratory effort Auscultation: clear to auscultation bilaterally Cardio Rate: regular rate Heart sounds: S1 normal heart sound present and S2 normal heart sound present Peripheral pulses: Peripheral pulses 2+ throughout GI Inspection: Yes normal to inspection Skin General skin exam: dry skin Neuro General: oriented to person, oriented to place and oriented to time Extrem General: No clubbing, No cyanosis and Yes edema Right lower extremity: full ROM, normal capillary refill and edema Left lower extremity: full ROM, normal capillary refill and edema Psych Mental Status: mental status grossly normal Assessment & Plan Assessment & Plan (1) COPD (chronic obstructive pulmonary disease): Comment: stable with inhalers Code(s): J44.9 - Chronic obstructive pulmonary disease, unspecified Category: Medical Qualifiers: COPD type: chronic bronchitis Chronic bronchitis type: simple Qualified Code(s): J41.0 - Simple chronic bronchitis (2) Pulmonary embolism: Comment: unprovoked event. Lifelong anticoagulation is recommended. If he decides to stop the Eliquis after 6 months, then should have a ddimer checked after 4 weeks. After a year of anticoagulation (09/2023) he can also consider half dose Eliquis 2.5mg BID, but with LE edema will continue full dose Code(s): I26.99 - Other pulmonary embolism without acute cor pulmonale Category: Medical Qualifiers: Pulmonary embolism type: multiple subsegmental (without acute cor pulmonale) Qualified Code(s): I26.94 - Multiple subsegmental pulmonary emboli without acute cor pulmonale (3) Chronic restrictive lung disease: Code(s): J98.4 - Other disorders of lung Category: Medical (4) Pulmonary nodules: Code(s): R91.8 - Other nonspecific abnormal finding of lung field Category: Medical Plan continue Trelegy daily for better adherence ONIEL as needed CT chest in 1 year continue Eliquis 5mg BID F/U 12 months Orders: Orders Sputum Cult + Gram stain Today J41.0 - Simple chronic bronchitis CT chest wo IV con 1 Year R91.8 - Other nonspecific abnormal finding of lung field Coding Level of Care Code Est Pt Level 4 (46652) Diagnoses Simple chronic bronchitis J41.0 COPD type: chronic bronchitis Chronic bronchitis type: simple Multiple subsegmental pulmonary emboli without acute cor pulmonale I26.94 Pulmonary embolism type: multiple subsegmental (without acute cor pulmonale) Chronic restrictive lung disease J98.4 Pulmonary nodules R91.8 Time Spent (min) 16
== END 2024-05-02 11:22 | disposition home or self-care (01) ==
PROVIDERS: PCP Registered Nurse; Visit Provider Hospitalist
DX: J41.0 Simple chronic bronchitis (principal); I26.94 Multiple subsegmental thrombotic pulmonary emboli without acute cor pulmonale; J98.4 Other disorders of lung; R91.8 Other nonspecific abnormal finding of lung field
CPT/HCPCS: 99214

== ENCOUNTER → 2024-05-02 10:58 | Outpatient (BNVA) | payer OTHER, SELFPAY | PROVIDERS: PCP Registered Nurse; Visit Provider Hospitalist | DX: J41.0 Simple chronic bronchitis (principal); I26.94 Multiple subsegmental thrombotic pulmonary emboli without acute cor pulmonale; J98.4 Other disorders of lung; R91.8 Other nonspecific abnormal finding of lung field | CPT/HCPCS: 99212 ==

== ENCOUNTER 2024-05-05 10:56 | Outpatient (AMB) | payer OTHER, SELFPAY ==
--- NOTE | 2024-05-05 11:04 | HO.NEPHOV ---
Vital Signs 05/05/24 11:05 Height 5 ft 10 in Weight 177 lb 8 oz BMI 25.5 BP 130/80 Blood Pressure Location Rt brachial Position Sitting Pulse 55 Pulse Source Pulse Oximeter Pulse Oximetry (%) 100 Oxygen Delivery Method Room Air Intake Visit Reasons: 3 Months/ Conf w/daughter Intake Note: Cement And Concrete Plant Worker services refused, refusal form signed and scanned into chart. Cement And Concrete Plant Worker Required: Yes Cement And [employer]crete Plant Worker Services: Cement And Concrete Plant Worker Offered & Declined Cement And Concrete Plant Worker Name: Shasta Salmeron (Daughter) Accompanied by: Daughter Allergies aspirin [Aspirin] Allergy (Mild, Verified 05/05/24 11:07) SWELLING Penicillins Allergy (Mild, Verified 05/05/24 11:07) SWELLING HPI Comments Details: I had the privilege of seeing Armando in follow up of his CKD. He has H/O hypertension and was on ACEI in the past but was taken off it when he developed low blood pressures. He is a diabetic on insulin. He had high BMI and underwent gastric surgery with significant weight loss.He has H/O very mild proteinuria. He has no H/O malignancies. He denies epistaxis, photosensitivity, new skin rashes, edema, hematuria, recurrent sore throat, new bone or back pain. He is not on any SGLT2 i. He takes Vitamin C and PPI daily. He tries to avoid NSAID's and maintain good hydration. His HbA1c has been very good. He had no new complaints at the time of this office visit [facility] Medical History Chronic restrictive lung disease Pulmonary nodules COVID-19 vaccine series completed Arthritis Asthma Vitamin D deficiency HLD (hyperlipidemia) T2DM (type 2 diabetes mellitus) Anxiety Depression Venous insufficiency Hypertension COPD (chronic obstructive pulmonary disease) Surgical History History of repair of hiatal hernia Status post laparoscopic sleeve gastrectomy History of esophagogastroduodenoscopy (EGD) History of umbilical hernia repair H/O colonoscopy with polypectomy Family History Father CVD (cardiovascular disease) Heart disease Mother Heart disease CVD (cardiovascular disease) Brother Cancer Brother Cancer Brother Heart attack Sister CVD (cardiovascular disease) Diabetes mellitus Hypertension Arthritis Social History Are you a primary home care provider to a significant other at home: No Do you presently have visiting nurse or other home services: Yes (HOT STRIP FINISHER-daughter) Alcohol intake: never Comment: no facial grimacing, medicated in pacu numerous times, pain scale explained Patient Tobacco Use Status: Former Tobacco user Tobacco use type: Cigarette Advance Directives Date on File: 06/27/21 service: No Current occupational status: unemployed Review of Systems Const All systems reviewed & are unremarkable except as noted in HPI and below Physical Exam Vital Signs: Last Vital Signs Pulse 55 05/05/24 11:05 BP 130/80 05/05/24 11:05 Pulse Ox 100 05/05/24 11:05 Oxygen Delivery Method Room Air 05/05/24 11:05 BMI result Body Mass Index 25.5 Const General: comfortable and no acute distress Orientation/consciousness: patient oriented x3 HEENT Head: Yes normocephalic Mouth: Normal oral and palatal mucosa present Eyes EOM: EOMs intact bilaterally Neck Neck: Yes supple Resp Auscultation: clear to auscultation bilaterally Cardio Jugular venous distension: no JVD Rate: regular rate GI Palpation (GI): Soft to palpation Auscultation: normal bowel sounds General: Yes no CVA tenderness Back/Spine/Pelvis Back: no CVA tenderness Skin General skin exam: no rashes or lesions noted Neuro General: patient oriented x3 and moves all extremities Extrem General: Yes no pedal edema Results Reviewed Nephrology Results: Hgb 12.9 g/dl (14.0-18.0) L 03/13/24 WBC 3.7 X10*3/uL (4.8-10.8) L 03/13/24 Plt Count 194 X10*3/uL (160-400) 03/13/24 Sodium 141 mmol/L (135-145) 03/13/24 Potassium 3.8 mmol/L (3.3-5.1) 03/13/24 Chloride 106 mmol/L (96-108) 03/13/24 Carbon Dioxide 28 mmol/L (22-29) 03/13/24 BUN 15 mg/dL (9-16) 03/13/24 Creatinine 1.39 mg/dL (0.5-1.4) 03/13/24 Calcium 9.6 mg/dL (8.4-10.2) 03/13/24 Phosphorus 3.1 mg/dL (2.7-4.5) 03/13/24 PTH Intact 87.7 pg/mL (8.7-77.1) H 03/13/24 Urine Protein Negative mg/dL (Neg-Trace) 03/13/24 Urine Creatinine 97.69 mg/dL 03/13/24 Protein/Creatinin Ratio 0.14 (<0.2) 03/13/24 Renal US 03/08/24 Assessment & Plan Assessment & Plan (1) CKD (chronic kidney disease) stage 3, GFR 30-59 ml/min: Code(s): N18.30 - Chronic kidney disease, stage 3 unspecified Category: Medical Qualifiers: Chronic kidney disease stage 3 subtype: stage 3a (GFR 45-59) Qualified Code(s): N18.31 - Chronic kidney disease, stage 3a Plan Armando has CKD 3 and his renal functions are currently stable He has no significant proteinuria. His CKD is likely from DM/H/o high BMI & HTN He had been on ACEI in the past which was discontinued due to low BP's He is not on any SGLT2 i. Work up ordered including imaging reviewed Will do a 24 hour urine for cr cl and protein with time; Shall start SGLT2i NO indication for renal biopsy now. No NSAID's; Good hydration Minimize PPI if he can and keep Vitamin C to 3/ week Continue current dose of statins; Answered all questions Follow labs ordered & F/U appointment given Orders: Orders Creatinine 05/05/24 N18.31 - Chronic kidney disease, stage 3a Blood Urea Nitrogen 05/05/24 N18.31 - Chronic kidney disease, stage 3a Electrolytes 05/05/24 N18.31 - Chronic kidney disease, stage 3a Coding Level of Care Code Est Pt Level 4 (68573) Diagnoses Stage 3a chronic kidney disease N18.31 Chronic kidney disease stage 3 subtype: stage 3a (GFR 45-59)
[2024-05-05 11:05] VITALS: BP 130/80; PULSE 55; O2SAT 100; BMI 25.5
== END 2024-05-05 11:44 | disposition home or self-care (01) ==
PROVIDERS: PCP Registered Nurse; Visit Provider Internal Medicine Nephrology
DX: N18.31 Chronic kidney disease, stage 3a (principal)
CPT/HCPCS: 99214

== ENCOUNTER → 2024-05-05 10:56 | Outpatient (BNVA) | payer OTHER, SELFPAY | PROVIDERS: PCP Registered Nurse; Visit Provider Internal Medicine Nephrology | DX: E11.22 Type 2 diabetes mellitus with diabetic chronic kidney disease (principal); N18.31 Chronic kidney disease, stage 3a | CPT/HCPCS: 99212 ==

== ENCOUNTER 2024-05-19 09:56 | Outpatient (AMB) | payer OTHER, SELFPAY ==
[2024-05-19 10:01] VITALS: BP 120/80; PULSE 68; BMI 25.9
--- NOTE | 2024-05-19 10:01 | A.OFFVIS_ITS ---
Vital Signs 05/19/24 10:01 05/19/24 10:23 05/19/24 10:26 05/19/24 10:28 Height 5 ft 10 in Weight 180 lb 12.465 oz BMI 25.9 BP 120/80 142/68 H 137/71 151/72 H Blood Pressure Location Lt brachial Lt brachial Lt brachial Lt brachial Position Sitting Supine Sitting Standing Pulse 68 65 65 70 Intake Visit Reasons: pool nurse/wendie tafoya/syncope Intake Note: New patient dx syncope was seen at [facility] this was about a year ago Reset Merchandiser Required: Yes Reset Merchandiser Name: daughter signed Data Analytics Analyst: Data Analytics Analyst Present Accompanied by: Daughter Allergies aspirin [Aspirin] Allergy (Mild, Verified 05/05/24 11:07) SWELLING Penicillins Allergy (Mild, Verified 05/05/24 11:07) SWELLING Medication List - Last Reconciled 05/19/24 by Wilbert Correa MD acetaminophen (Tylenol Extra Strength) 1,000 mg (2 x 500 mg) PO Q6H PRN albuterol sulfate 90 mcg/actuation 2 inhalations inhalation Q6H PRN 30 days apixaban (Eliquis) 5 mg PO BID ascorbic acid (vitamin C) 250 mg PO QAM atorvastatin 20 mg PO BEDTIME [celebrate MVI PO DAILY] cholecalciferol (vitamin D3) 50 mcg PO DAILY folic acid 1 mg PO QAM ipratropium-albuterol 0.5 mg-3 mg(2.5 mg base)/3 mL 3 mL inhalation Q6H PRN ipratropium-albuterol 0.5 mg-3 mg(2.5 mg base)/3 mL 3 mL inhalation BID 30 days midodrine 2.5 mg PO nebulizers As directed omeprazole 20 mg PO DAILY pen needle, diabetic As directed simethicone (Gas Relief (simethicone)) 80 mg PO BID-QID PRN tiotropium bromide 1 cap inhalation DAILY trazodone 100 mg PO BEDTIME HPI Comments Details: Armando was referred here for evaluation of syncope. He presents here in his accompanied by his daughter who acts as poke in. They declined a certified poke in. Patient was referred here for history of syncope and he is extremely poor historian and is very difficult to obtain any specific history from him. He said he was diagnose with syncope couple of years ago and there is [facility] years ago which was within normal limits at that point time. He also says that he had a Holter monitor although I do not find any copy of Holter monitor in the system. He is prior history of DVT as well as pulmonary embolism for less than 2 years as per the daughter in his on currently anticoagulation therapy with Eliquis. Duration of ant icoagulation therapy is unknown. He also has peripheral venous disease and question lymphedema and has been advise compression venous stocking but does not wear it. He said in the past he has had syncopal episode while sitting on the couch last episode as per the daughter happen in October last year when he was sitting in the chair and then he lost consciousness. There was no seizure-like activities. He had turned pale and diaphoretic. The daughter held him up and the symptoms lasted for few minutes and then he came around. There was no bowel bladder incontinence. There was no tongue bites. Since then he has been dizzy although this is very difficult to obtain. He denies any exertional chest pain or shortness of breath. Does not drink enough fluids in the day. He has been prescribed midodrine, not sure as to the dose he has taking and the frequency and as to who prescribed him. He has not aware of it. He has generally not aware of his medications or prior medical condition. [facility] Medical History Chronic restrictive lung disease Pulmonary nodules COVID-19 vaccine series completed Arthritis Asthma Vitamin D deficiency HLD (hyperlipidemia) T2DM (type 2 diabetes mellitus) Anxiety Depression Venous insufficiency Hypertension COPD (chronic obstructive pulmonary disease) Surgical History History of repair of hiatal hernia Status post laparoscopic sleeve gastrectomy History of esophagogastroduodenoscopy (EGD) History of umbilical hernia repair H/O colonoscopy with polypectomy Family History Father CVD (cardiovascular disease) Heart disease Mother Heart disease CVD (cardiovascular disease) Brother Cancer Brother Cancer Brother Heart attack Sister CVD (cardiovascular disease) Diabetes mellitus Hypertension Arthritis Social History Are you a primary patient care secretary to a significant other at home: No Do you presently have visiting nurse or other home services: Yes (MATERIAL CREW SUPERVISOR-daughter) Alcohol intake: never Comment: no facial grimacing, medicated in pacu numerous times, pain scale explained Patient Tobacco Use Status: Former Tobacco user Tobacco use type: Cigarette Advance Directives Date on File: 06/27/21 service: No Current occupational status: unemployed Review of Systems Const Denies chills, Denies daytime sleepiness, Denies fatigue, Denies fever(s), Denies frequent falls, Denies poor appetite, Denies snoring, Denies stops breathing during sleep, Denies weakness, Denies weight gain and Denies weight loss Eyes Denies loss of vision ENT Denies dizziness and Denies hearing loss Card Denies chest pain, Denies claudication, Denies leg edema, Denies lightheadedness, Denies palpitations, Denies dyspnea, Denies dyspnea on exertion and Denies orthopnea Resp Denies cough, Denies excessive phlegm production, Denies dyspnea, Denies dyspnea on exertion, Denies snoring and Denies wheezing GI Denies abdominal pain, Denies hematochezia, Denies change in bowel habits, Denies nausea and Denies vomiting Denies dysuria and Denies urinary frequency Musc Denies arthralgias, Denies muscle weakness, Denies numbness and Denies other (frequent falls) Skin/Breast Denies nail changes and Denies rash Neuro Denies Abnormal speech present, Denies dizziness, Denies frequent falls, Denies loss of vision, Denies memory loss, Denies numbness and Denies weakness Psych Denies depression and Denies memory loss Endo Denies fatigue and Denies palpitations Russell/Lymph Reports easy bruising and Reports other (anemia) Aller/Immun Denies wheezing Physical Exam Vital Signs: Last Vital Signs Pulse 70 05/19/24 10:28 BP 151/72 H 05/19/24 10:28 BMI result Body Mass Index 25.9 Const General: cooperative, comfortable, no acute distress, alert, awake and Physically active Nutritional Appearance: obese Orientation/consciousness: patient oriented x3 Limitations: no limitations HEENT Head: Yes normocephalic and Yes atraumatic Neck Neck: Yes trachea midline, Yes supple and Yes no JVD Resp Effort & Inspection: normal respiratory effort Auscultation: clear to auscultation bilaterally Cardio Jugular venous distension: no JVD Rate: regular rate Rhythm: regular rhythm Heart sounds: S1 normal heart sound present, S2 normal heart sound present, no click, no gallops, no murmurs and no rubs GI Auscultation: normal bowel sounds Skin General skin exam: no rashes or lesions noted Neuro General: patient oriented x3 and no focal motor deficits Speech: No Abnormal speech present Extrem General: No clubbing, No cyanosis and Yes edema Psych Appearance: grossly normal Office Procedures EKG Details: EKG shows normal sinus rhythm with nonspecific T-wave changes [id number], Complete Assessment & Plan Assessment & Plan (1) Syncope: Code(s): R55 - Syncope and collapse Plan: Patient with prior history of syncope although history is extremely difficult and poor from this patient. He is a very poor historian. Can not establish any clear etiology. With a history of syncope he had an echocardiogram couple years ago at [facility] which was within normal limits. Since then he does not have any significant syncopal episode in the last 6 months, not sure if this is due to intervention with midodrine therapy. He has not aware of the dozing or frequency of midodrine use. Although on today's exam there was no demonstrable orthostatic hypotension noted. His blood pressure is slightly on the elevated side. I would suggest a Holter monitor to rule out any significant cardiac arrhythmia although this is less likely, it is most likely that he has orthostatic syncope. At this point in time I have advised him to increase his fluid intake. We discussed about orthostatic precautions. If the Holter monitor is benign no further workup is indicated as no clear indication of significant myocardial ischemia by symptoms. Continue other medical therapy., his venous thromboembolic disease is being managed through your office, remains on full-dose oral anticoagulation therapy. Will follow up in the clinic if need be. Thank you for allowing me to partake in his care Orders: Orders ECG 7 day holter monitor Today R55 - Syncope and collapse Coding Level of Care Code New Pt Level 4 (14849) Diagnoses Syncope R55 CPT Codes EKG - CPT: 37533-[id number], Complete ([id number])
[2024-05-19 10:23] VITALS: BP 142/68; PULSE 65
[2024-05-19 10:26] VITALS: BP 137/71; PULSE 65
[2024-05-19 10:28] VITALS: BP 151/72; PULSE 70
== END 2024-05-19 10:58 | disposition home or self-care (01) ==
PROVIDERS: PCP Registered Nurse; Visit Provider Internal Medicine Cardiovascular Disease
DX: R55 Syncope and collapse (principal)
CPT/HCPCS: 93010; 99214

== ENCOUNTER → 2024-05-19 09:56 | Outpatient (BNVA) | payer OTHER, SELFPAY | PROVIDERS: PCP Registered Nurse; Visit Provider Internal Medicine Cardiovascular Disease | DX: R55 Syncope and collapse (principal); R94.31 Abnormal electrocardiogram [ECG] [EKG] | CPT/HCPCS: 93005; 99212 ==

== ENCOUNTER → 2024-06-05 10:11 | Outpatient (REF) | payer OTHER, SELFPAY ==
--- NOTE | 2024-06-05 10:15 | HM_ITS ---
* Total monitoring time 7 days. * Underlying rhythm is sinus with an average rate of 70/Min. * Rare supraventricular ectopy. * Rare ventricular ectopy. One run of NSVT-14 beats. Monomorphic. * No significant pauses or AV blocks. * No patient markers or diary events. MTDD
== END ==
LOC: HO.CARD 10:11
PROVIDERS: Visit Provider Internal Medicine Cardiovascular Disease
DX: R55 Syncope and collapse (principal)
CPT/HCPCS: 93242

== ENCOUNTER → 2024-06-05 10:15 | Outpatient (BNV) | payer OTHER, SELFPAY | PROVIDERS: Visit Provider Internal Medicine | DX: I47.10 Supraventricular tachycardia, unspecified (principal) | CPT/HCPCS: 93244 ==

== ENCOUNTER 2024-06-29 12:58 | Outpatient (REF) | payer OTHER, SELFPAY ==
[2024-06-29 16:08] LABS: MANUAL DIFF FLAG NO
[2024-06-29 16:17] LABS: Basophils Percent Auto 0.7 % (0-2); Eosinophils Absolute Auto 0.1 X10*3/uL (0.0-0.4); Eosinophils Percent Auto 2.9 % (0-4); Hematocrit 37.3 % (42.0-52.0); Hemoglobin 11.9 g/dl (14.0-18.0); Imm Gran Abs Auto 0.01 X10*3/uL (0.00-0.03); Imm Gran Pct Auto 0.2 % (0.0-0.4); Lymphocytes Absolute Auto 1.4 X10*3/uL (1.2-4.9); Lymphocytes Percent Auto 35.1 % (20-40); Mean Corpuscular HGB Conc 31.9 g/dl (31.0-36.0); Mean Corpuscular Volume 97.1 fL (80.0-98.0); Mean Platelet Volume 10.9 fL (9.4-12.4); Monocytes Absolute Auto 0.3 X10*3/uL (0.1-1.2); Monocytes Percent Auto 8.3 % (2-11); Neutrophils Absolute Auto 2.2 x10*3/uL (2.0-8.3); Neutrophils Percent Auto 52.8 % (45-73); Platelet Count 183 X10*3/uL (160-400); Red Blood Count 3.84 X10*6/uL (4.60-5.80); Red Cell Distribution Width 11.9 % (11.0-16.0); White Blood Count 4.1 X10*3/uL (4.8-10.8)
[2024-06-29 16:54] LABS: Ferritin 280 ng/mL (20-250); TSH reflex Free T4 1.37 uIU/mL (0.32-4.0); Vitamin D 25-OH Total 34.2 ng/mL (>30)
[2024-06-29 17:05] LABS: Folate 18.8 ng/mL (> or = 4.0); Vitamin B12 238 pg/mL (200-900)
== END 2024-06-29 12:59 | disposition home or self-care (01) ==
LOC: HO.HHCL 12:58
PROVIDERS: Visit Provider Registered Nurse
DX: E11.42 Type 2 diabetes mellitus with diabetic polyneuropathy (principal); R41.89 Other symptoms and signs involving cognitive functions and awareness; R46.89 Other symptoms and signs involving appearance and behavior; D50.9 Iron deficiency anemia, unspecified
CPT/HCPCS: 36415; 82306; 82607; 82728; 82746; 84443; 85025

== ENCOUNTER → 2024-07-04 08:56 | Outpatient (REF) | payer OTHER, SELFPAY ==
--- NOTE | ~2024-07-04 | NM_ITS ---
Lexiscan Myocardial perfusion study Indication: Syncope Technique: The patient was brought in for a Lexiscan perfusion study on 07/04/2024 and was injected 0.4 mg of Lexiscan intravenously. Within a minute of this injection 30 mCi of sestamibi was given intravenously. Images were obtained using the SPECT gamma camera interlaced with the gating device. Images were obtained in supine position. Resting perfusion study was performed on 07/05/2024. Patient was administered 30 mCi of sestamibi intravenously at rest. Images were then obtained in supine position. Total DLP 72 mGy-cm. Images were processed with the software and compared side to side in short axis, horizontal long axis and vertical long axis views. Findings: Raw aquisition reviewed. The stress perfusion study showed no significant perfusion abnormality. Both uncorrected as well as CT attenuation corrected images were reviewed. The gated study shows normal LV systolic function with calculated LVEF of 62%. LV cavity is normal in size. The gated study shows normal wall thickening and contraction of segments. Resting study shows no significant perfusion abnormality. Gating at rest reveals normal wall motion with ejection fraction at 59%. The findings are consistent with no clear reversible or fixed perfusion defects. NM/NM cardiolite stress test Impression: 1. Myocardial perfusion imaging study shows normal myocardial perfusion. 2. Gated LVEF is 62% during stress; 59% during rest. 3. Transient ischemic dilatation not present. EKG component of the test reported separately. Electronically signed by: Mendez Paz MD 07/06/2024 11:17 AM EDT
--- NOTE | 2024-07-04 08:59 | CA_ITS ---
Acquisition Time: 2024-07-04 09:33:09 Total Exercise Time: 00:02:00 Test Indications: VTACH, SYNCOPE Medications: Protocol: LEXISCAN Max HR: 105 BPM 69% of Pred: 152 BPM Max BP: 158/064 mmHG Max Work Load: 1.0 METS Pharmacological stress test with Lexiscan injection while sitting and kicking his legs, without anginal symptoms, with isolated PACs, with resting HTN, normotensive response, with nondiagnoisitic EKGs. Nuclear images pending. Test reviewed with Dr. Correa Referred By: Wilbert Correa Overread By: Hali Echevarria
== END ==
LOC: HO.CARD 08:56
PROVIDERS: Visit Provider Internal Medicine Cardiovascular Disease
DX: I47.20 Ventricular tachycardia, unspecified (principal); I10 Essential (primary) hypertension; J41.0 Simple chronic bronchitis
CPT/HCPCS: 78452; 93017; A9500; J0280; J2785

== ENCOUNTER → 2024-07-04 08:59 | Outpatient (BNV) | payer OTHER, SELFPAY | PROVIDERS: Visit Provider Nurse Practitioner | DX: I49.1 Atrial premature depolarization (principal); I10 Essential (primary) hypertension | CPT/HCPCS: 78452; 93016; 93018 ==

== ENCOUNTER 2024-07-11 10:20 | Outpatient (AMB) | payer OTHER, SELFPAY ==
--- NOTE | 2024-07-11 10:25 | A.OFFVIS_ITS ---
VS Expanded 07/11/24 10:33 BP 161/72 H Blood Pressure Location Rt brachial Blood Pressure Position Sitting Pulse 65 Pulse Source Pulse Oximeter Temp 97.6 F Temperature Source Tympanic Pulse Oximetry 98 Oxygen Delivery Method Room Air Height 5 ft 10 in Weight 178 lb 9.6 oz BMI 25.6 Body Fat % 16.3 Body Fat Mass 29.2 Fat Free Mass 149.4 Visceral Fat Rating 11.0 Body Water % 58.8 Body Water Mass 105.0 Muscle Mass/Score 142.0 Basal Metabolic Rate/Score 1,932 Intake Visit Reasons: (OV) PO LSG 06/25/21 Allergies aspirin [Aspirin] Allergy (Mild, Verified 07/11/24 10:30) SWELLING Penicillins Allergy (Mild, Verified 07/11/24 10:30) SWELLING Medication List - Last Reconciled 07/11/24 by JUAN Hayes acetaminophen (Tylenol Extra Strength) 1,000 mg (2 x 500 mg) PO Q6H PRN albuterol sulfate 90 mcg/actuation 2 inhalations inhalation Q6H PRN 30 days apixaban (Eliquis) 5 mg PO BID ascorbic acid (vitamin C) 250 mg PO QAM atorvastatin 20 mg PO BEDTIME [celebrate MVI PO DAILY] cholecalciferol (vitamin D3) 50 mcg PO DAILY folic acid 1 mg PO QAM ipratropium-albuterol 0.5 mg-3 mg(2.5 mg base)/3 mL 3 mL inhalation Q6H PRN ipratropium-albuterol 0.5 mg-3 mg(2.5 mg base)/3 mL 3 mL inhalation BID 30 days midodrine 2.5 mg PO nebulizers As directed omeprazole 20 mg PO DAILY pen needle, diabetic As directed simethicone (Gas Relief (simethicone)) 80 mg PO BID-QID PRN tiotropium bromide 1 cap inhalation DAILY trazodone 100 mg PO BEDTIME HPI Comments Details: This?is a?69?yo male who is s/p LSG 06/25/2021. Presents for 3 year post op visit. Weight at last visit on 01/13/2024 was 163.8 pounds with a BMI of 23.5, weight today is 178.6 pounds, representing a 14.8 pound weight gain with a BMI today of 25.6.? No complaints of nausea, emesis, abdominal pain or reflux, or constipation. Present meal plan includes: scrambled eggs fish, rice and beans sometimes pork chops dinner usually same as lunch previously was recommended to have one RTD shake like Ensure per day to help meet protein goals- pt no longer doing this drinks juice Exercise Luz Elena class daily walks on a treadmill, does weight training has been doing less treadmill walking- difficulty getting access as it is often being used [facility] Medical History Chronic restrictive lung disease Pulmonary nodules COVID-19 vaccine series completed Arthritis Asthma Vitamin D deficiency HLD (hyperlipidemia) T2DM (type 2 diabetes mellitus) Anxiety Depression Venous insufficiency Hypertension COPD (chronic obstructive pulmonary disease) Surgical History History of repair of hiatal hernia Status post laparoscopic sleeve gastrectomy History of esophagogastroduodenoscopy (EGD) History of umbilical hernia repair H/O colonoscopy with polypectomy Family History Father CVD (cardiovascular disease) Heart disease Mother Heart disease CVD (cardiovascular disease) Brother Cancer Brother Cancer Brother Heart attack Sister CVD (cardiovascular disease) Diabetes mellitus Hypertension Arthritis Social History Are you a primary health care marketing manager to a significant other at home: No Do you presently have visiting nurse or other home services: Yes (ORIGINATION SPECIALIST-daughter) Alcohol intake: never Comment: no facial grimacing, medicated in pacu numerous times, pain scale explained Patient Tobacco Use Status: Former Tobacco user Tobacco use type: Cigarette Advance Directives Date on File: 06/27/21 service: No Current occupational status: unemployed Physical Exam Vital Signs: Last Vital Signs Temp 97.6 F 07/11/24 10:33 Pulse 65 07/11/24 10:33 BP 161/72 H 07/11/24 10:33 Pulse Ox 98 07/11/24 10:33 Oxygen Delivery Method Room Air 07/11/24 10:33 Assessment & Plan Assessment & Plan (1) Overweight: Code(s): E66.3 - Overweight Category: Medical (2) Status post laparoscopic sleeve gastrectomy: Code(s): Z98.84 - Bariatric surgery status Category: Medical Plan Eliminate juice. Can substitute with Crystal Light. Pt likely still low on total protein intake, discussed adding one additional protein item in afternoon or evening like protein bar or yogurt/cc (gave yogurt handout with brands). RTC 1 year, pt can call office sooner for any concerns. I spent a total of 30 minutes reviewing/updating records, examining the patient and counseling the patient on weight management as detailed above. Orders: Orders Insulin Today E66.3 - Overweight, Z98.84 - Bariatric surgery status Hemoglobin A1c Today E66.3 - Overweight, Z98.84 - Bariatric surgery status Lipid Panel Today E66.3 - Overweight, Z98.84 - Bariatric surgery status Vitamin B1 Today E66.3 - Overweight, Z98.84 - Bariatric surgery status Comprehensive Met. Panel Today E66.3 - Overweight, Z98.84 - Bariatric surgery status C Reactive Protein Today E66.3 - Overweight, Z98.84 - Bariatric surgery status Vitamin A Today E66.3 - Overweight, Z98.84 - Bariatric surgery status Zinc Today E66.3 - Overweight, Z98.84 - Bariatric surgery status
[2024-07-11 10:33] VITALS: BP 161/72; PULSE 65; TEMP 36.4; O2SAT 98; BMI 25.6
== END 2024-07-11 11:05 | disposition home or self-care (01) ==
PROVIDERS: PCP Registered Nurse; Visit Provider Physician Assistant Surgical
DX: E66.3 Overweight (principal); Z98.84 Bariatric surgery status
CPT/HCPCS: 99214

== ENCOUNTER → 2024-07-11 10:20 | Outpatient (BNVA) | payer OTHER, SELFPAY | PROVIDERS: PCP Registered Nurse; Visit Provider Physician Assistant Surgical | DX: E66.3 Overweight (principal); Z98.84 Bariatric surgery status; Z68.25 Body mass index [BMI] 25.0-25.9, adult | CPT/HCPCS: 99212 ==

== ENCOUNTER 2024-08-23 18:11 | Outpatient (REF) | payer OTHER, SELFPAY ==
--- NOTE | ~2024-08-23 | MR_ITS ---
EXAMINATION: MR BRAIN WITHOUT CONTRAST CLINICAL INFORMATION: Cognitive decline. COMPARISON: CT head from 07/09/2023. Brain MRI from 07/01/2022. TECHNIQUE: MRI of the brain was obtained using routine sequences without contrast. FINDINGS: No focal restricted diffusion is demonstrated to suggest acute or subacute cerebral ischemia. No evidence of acute or chronic hemorrhagic products on heme-sensitive imaging. Scattered periventricular and deep white matter T2 FLAIR hyperintensities consistent with mild underlying microangiopathy. Proportional prominence of the ventricles and sulcal spaces without evidence of obstructive hydrocephalus. No abnormal mass effect. No midline shift. Normal appearance of the pituitary gland. Normal positioning of the cerebellar tonsils. Normal arterial and venous vascular flow voids are present. Normal, homogeneous marrow signal. Mild mucosal thickening of the paranasal sinuses. No signal abnormalities within the mastoids. Bilateral lens extractions. MR/MR head/brain wo con IMPRESSION: 1. No acute intracranial abnormalities. 2. Mild underlying microangiopathy and generalized cerebral volume loss. Electronically signed by: Juan Enciso DO 10/18/2024 04:22 AM RIGO
== END 2024-08-23 18:12 | disposition home or self-care (01) ==
LOC: HO.MRI 18:11
PROVIDERS: PCP Registered Nurse; Visit Provider Registered Nurse
DX: R41.89 Other symptoms and signs involving cognitive functions and awareness (principal); R46.89 Other symptoms and signs involving appearance and behavior
CPT/HCPCS: 70551

== ENCOUNTER 2024-10-11 07:55 | Outpatient (REF) | payer OTHER, SELFPAY ==
[2024-10-11 08:29] LABS: Estimated Average Glucose 111 mg/dL; Hemoglobin A1C 116.7625 umol/L; Hemoglobin A1c % 5.5 % (<6.0); Total Hemoglobin (HGBA1C) 3220.0391 umol/L
[2024-10-11 08:46] LABS: Alanine Aminotransferase 14 U/L (0-40); Albumin Level 3.8 g/dL (3.5-5.0); Alkaline Phosphatase 105 U/L (39-117); Anion Gap 10 (12-20); Aspartate Amino Transferase 26 U/L (5-37); Bilirubin Total 0.9 mg/dL (0.0-1.0); Blood Urea Nitrogen 17 mg/dL (9-16); C Reactive Protein 0.12 mg/dL (< or = 0.50); Calcium 9.5 mg/dL (8.4-10.2); Carbon Dioxide 30 mmol/L (22-29); Chloride 110 mmol/L (96-108); Cholesterol 164 mg/dL (<200); Estimated Glomerular Filt Rate 48; Glucose Random 120 mg/dL (60-115); HDL Cholesterol 64 mg/dL (>40); LDL Cholesterol Calculated 90 mg/dL (<100); Potassium 4.4 mmol/L (3.3-5.1); Sodium 146 mmol/L (135-145); Total Protein 6.7 g/dL (6.5-8.0); Triglycerides 51 mg/dL (<150)
[2024-10-11 09:02] LABS: Insulin 7 uU/mL (2-29)
[2024-10-14 23:53] LABS: Zinc 50 mcg/dL (60-130)
[2024-10-17 03:09] LABS: Vitamin A 29 mcg/dL (38-98)
[2024-10-20 15:18] LABS: Vitamin B1 11 nmol/L (8-30)
== END 2024-10-11 07:56 | disposition home or self-care (01) ==
LOC: HO.LAB 07:55
PROVIDERS: Physician Assistant Surgical; Visit Provider Internal Medicine Nephrology
DX: E66.3 Overweight (principal); Z98.84 Bariatric surgery status; Z13.1 Encounter for screening for diabetes mellitus
CPT/HCPCS: 36415; 80053; 80061; 83036; 83525; 84425; 84590; 84630; 86140

== ENCOUNTER 2024-12-13 10:28 | Outpatient (AMB) | payer OTHER, SELFPAY ==
--- NOTE | 2024-12-13 11:22 | HO.NEPHOV_ITS ---
Vital Signs 12/13/24 11:31 Height 5 ft 10 in Weight 196 lb 8 oz BMI 28.2 BP 124/70 Blood Pressure Location Rt brachial Position Sitting Pulse 69 Pulse Source Pulse Oximeter Pulse Oximetry (%) 97 Oxygen Delivery Method Room Air Intake Visit Reasons: 6 mon follow up-Conf Driver Examiner Required: Yes Driver Examiner Language: Bellhop Service Captain Services: Driver Examiner Offered & Declined ([facility] leasing agent services refused. Pt accompanied by daughter) Driver Examiner Name: Shasta-daughter Accompanied by: Daughter Allergies aspirin [Aspirin] Allergy (Mild, Verified 12/13/24 11:30) SWELLING Penicillins Allergy (Mild, Verified 12/13/24 11:30) SWELLING HPI Comments Details: Armando was seen in follow up of his CKD. He has H/O hypertension and was on ACEI in the past but was taken off it when he developed low blood pressures. He is a diabetic on insulin. He had high BMI and underwent gastric surgery with significant weight loss.He has H/O very mild proteinuria. He has no H/O malignancies. He denies epistaxis, photosensitivity, new skin rashes, edema, hematuria, recurrent sore throat, new bone or back pain. He is not on any SGLT2 i. He tries to avoid NSAID's and maintain good hydration. His HbA1c has been very good. He had no new complaints at the time of this office visit [facility] Medical History Chronic restrictive lung disease Pulmonary nodules COVID-19 vaccine series completed Arthritis Asthma Vitamin D deficiency HLD (hyperlipidemia) T2DM (type 2 diabetes mellitus) Anxiety Depression Venous insufficiency Hypertension COPD (chronic obstructive pulmonary disease) Surgical History History of repair of hiatal hernia Status post laparoscopic sleeve gastrectomy History of esophagogastroduodenoscopy (EGD) History of umbilical hernia repair H/O colonoscopy with polypectomy Family History Father CVD (cardiovascular disease) Heart disease Mother Heart disease CVD (cardiovascular disease) Brother Cancer Brother Cancer Brother Heart attack Sister CVD (cardiovascular disease) Diabetes mellitus Hypertension Arthritis Social History Are you a primary hearing healthcare practitioner to a significant other at home: No Do you presently have visiting nurse or other home services: Yes (CUSTOMER SUPPORT EXECUTIVE-daughter) Alcohol intake: never Comment: no facial grimacing, medicated in pacu numerous times, pain scale explained Patient Tobacco Use Status: Former Tobacco user Tobacco use type: Cigarette Advance Directives Date on File: 06/27/21 service: No Current occupational status: unemployed Review of Systems Const All systems reviewed & are unremarkable except as noted in HPI and below Physical Exam Vital Signs: Last Vital Signs Pulse 69 12/13/24 11:31 BP 124/70 12/13/24 11:31 Pulse Ox 97 12/13/24 11:31 Oxygen Delivery Method Room Air 12/13/24 11:31 BMI result Body Mass Index 28.2 Const General: comfortable and no acute distress Orientation/consciousness: patient oriented x3 HEENT Head: Yes normocephalic Mouth: Normal oral and palatal mucosa present Eyes EOM: EOMs intact bilaterally Neck Neck: Yes supple Resp Auscultation: clear to auscultation bilaterally Cardio Jugular venous distension: no JVD Rate: regular rate GI Palpation (GI): Soft to palpation Auscultation: normal bowel sounds General: Yes no CVA tenderness Back/Spine/Pelvis Back: no CVA tenderness Skin General skin exam: no rashes or lesions noted Neuro General: patient oriented x3 and moves all extremities Extrem General: Yes no pedal edema Results Reviewed Nephrology Results: Hgb 11.9 g/dl (14.0-18.0) L 06/29/24 WBC 4.1 X10*3/uL (4.8-10.8) L 06/29/24 Plt Count 183 X10*3/uL (160-400) 06/29/24 Sodium 146 mmol/L (135-145) H 10/11/24 Potassium 4.4 mmol/L (3.3-5.1) 10/11/24 Chloride 110 mmol/L (96-108) H 10/11/24 Carbon Dioxide 30 mmol/L (22-29) H 10/11/24 BUN 17 mg/dL (9-16) H 10/11/24 Creatinine 1.46 mg/dL (0.5-1.4) H 10/11/24 Calcium 9.5 mg/dL (8.4-10.2) 10/11/24 Assessment & Plan Assessment & Plan (1) CKD (chronic kidney disease) stage 3, GFR 30-59 ml/min: Code(s): N18.30 - Chronic kidney disease, stage 3 unspecified Category: Medical Qualifiers: Chronic kidney disease stage 3 subtype: stage 3a (GFR 45-59) Qualified Code(s): N18.31 - Chronic kidney disease, stage 3a Plan Armando has CKD 3 and his renal functions have been close to baseline He had been on ACEI in the past which was discontinued due to low BP's Work up done in the past including imaging reviewed Will do a 24 hour urine for cr cl and protein with time NO indication for renal biopsy now. No NSAID's; Good hydration Minimize PPI if he can and keep Vitamin C to 3/ week Continue current dose of statins; Answered all questions Follow labs ordered & F/U appointment given Orders: Orders Electrolytes 3 Months N18.31 - Chronic kidney disease, stage 3a Creatinine 3 Months N18.31 - Chronic kidney disease, stage 3a Blood Urea Nitrogen 3 Months N18.31 - Chronic kidney disease, stage 3a Protein Creatinine Ratio, Ur 3 Months N18.31 - Chronic kidney disease, stage 3a Coding Level of Care Code Est Pt Level 4 (41579) Diagnoses Stage 3a chronic kidney disease N18.31 Chronic kidney disease stage 3 subtype: stage 3a (GFR 45-59)
--- OUTSIDE RECORDS SUMMARY | 2024-12-13 11:25 | XMS_ITS | Encounter Summary ---
Author Organization [employer] Address [address] [facility] [address] [place] [address] Care Team Providers Care Nuclear Fuels Research Engineer Name Role Phone Krysta Lockett PSYCHOLOGICAL OPERATIONS Primary Care Provider [phone] Reason for Visit * Reason Comments Med Refill Encounter Details Date Type Department Care Team (Late st Contact Info) Description 11/24/2022 Refill [facility] MEDICINE [address] [place], [place] [phone] Chey Multani MD [address] [place] [address] Social History Tobacco Use Types Packs/Day Years Used Date Smoking Tobacco: Never Assessed Sex and Gender Information Value Date Recorded Sex Assigned at Male 09/07/2022 10:15 AM EDT Legal Sex Male 10:15 AM EDT Gender Identity Male 09/07/2022 10:15 AM EDT Sexual Orientation Straight 09/07/2022 10 :15 AM EDT documented as of this encounter Miscellaneous Notes * Telephone Encounter - Maryellen Henriquez RN - 11/25/2022 4:25 PM EST Chart review indicates pervious pcp Dr. Coleman rx midodrine 2.5mg-one tab bid to be taken in the morning and at bedtime. Med was rx for persistent orthostatic hypotension. T/C to [facility] pharmacy. Zeinab states that pt has been getting med boxes regularly and is due for med box delivery tomorrow. documented in this encounter Plan of Treatment Not on file documented as of this encounter Visit Diagnoses Not on filedocumented in this encounter Care Teams Nuclear Fuels Research Engineer Relationship Specialty Start Date End Date Cathryn GLENNA Chaparro [address] [place] [address] PCP - General Family Medicine 10/27/22 documented as of this encounter
--- OUTSIDE RECORDS SUMMARY | 2024-12-13 11:25 | XMS_ITS | Encounter Summary ---
Author Organization [employer] Address [address] [facility] [address] [place] [address] Care Team Providers Care Train Control Technician Name Role Phone Bland [facility] Primary Care Provider [phone] Reason for Visit * Reason Comments Med Refill Encounter Details Date Type Department Care Team ([facility] st Contact Info) Description 11/01/2023 Refill [facility] MEDICINE [address] [place], [place] [phone] [facility] [address] [place] [address] Dyspepsia Social History Tobacco Use Types Packs/Day Years Used Date Smoking Tobacco: Former Cigarettes Passive Smoke Exposure: Current Smokeless Tobacco: Never Alcohol Use Standard Drinks/Week Comments Not Currently 0 (1 standard drink = 0.6 oz pur e alcohol) Depression Answer Date Recorded Patient Health Questionnaire-9 Score 0 12/21/2022 Housing Stability Answer Date Recorded What is your housing situation today? I have zoila parker 08/26/[address] you li ve. Do you have problems with any of the following? None of the above 08/26/2023 Food Insecurity Answer Date Recorded Within the past 12 months, y ou worried that your food would run out before you got money to buy more: Never True 08/26/2023 Within the past 12 months,th e food you bought just didn't last and you didn't have enough money to get more: Never True Transportation Answer Date Recorded In the past 12 months, has l ack of transportation kept you from medical appts, meetings, work or from getting things needed for daily living? No 08/26/2023 Utilities Answer Date Recorded In the past 12 months, has t he electric, gas, oil or water company threatened to shut off services in your home? No 08/26/2023 Depression Answer Date Recorded Patient Health Questionnaire-2 Score 0 12/21/2022 Sex and Gender Information Value Date Recorded Sex Assigned at Male 09/07/2022 10:15 AM EDT Legal Sex Male 10:15 AM EDT Gender Identity Male 09/07/2022 10:15 AM EDT Sexual Orientation Straight 09/07/2022 10 :15 AM EDT documented as of this encounter Plan of Treatment Not on file documented as of this encounter Visit Diagnoses Diagnosis Dyspepsia Dyspepsia and other specified disorders of function of stomach documented in this encounter Additional Health Concerns Assessment Noted Time PHQ-9 Depression Total Score: 0 12/21/19 23 10:22 AM EST documented as of this encounter Care Teams Train Control Technician Relationship Specialty Start Date End Date Krysta Lockett FNP [address] [place] [phone] PCP - General Family Medicine 10/27/22 documented as of this encounter
--- OUTSIDE RECORDS SUMMARY | 2024-12-13 11:25 | XMS_ITS | Encounter Summary ---
Author Organization [employer] Address [address] [place] [address] [address] [place] [address] Care Team Providers Care Glass Loading Equipment Tender Name Role Phone Roberto Carlos Coleman MD Primary Care Provider Unava minoo Pierce [facility] Primary Care Provider [phone] Encounter Details Date Type Department Care Team (Latest Contact Info) Description 12/01/2019 [facility] CONVERSIONS Dental, Provider, DDS Social History Tobacco Use Types Packs/Day Years [...] on filedocumented in this encounter Care Teams Glass Loading Equipment Tender Relationship Specialty Start Date End Date Roberto Carlos Coleman MD PCP - General Family Medicine 04/19/20 10/26/22 Pierce[facility]rysta [facility] [address] [place] [phone] PCP - General Family Medicine 10/27/22 documented as of this encounter
--- OUTSIDE RECORDS SUMMARY | 2024-12-13 11:25 | XMS_ITS | Encounter Summary ---
Author Organization [employer] Address [address] [facility] 7t [place] [address] Care Team Providers Care Director Child Development Center Name Role Phone Krysta Lockett SENIOR CYTOGENETIC TECHNOLOGIST Primary Care Provider [phone] Encounter Details Date Type Department Care Team (Late st Contact Info) Description 02/16/2024 Orders Only [facility] MEDICINE [address] [place], [place] [phone] Provider, MD Larissa Social History Tobacco Use Types Packs/Day Years Used Date Smoking Tobacco: Former Cigarettes Passive Smoke Exposure: Current Smokeless Tobacco: Never Alcohol Use Standard Drinks/Week Comments Not Currently 0 (1 standard drink = 0.6 oz pur e alcohol) Alcohol Answer Date Recorded Frequency of Alcohol Consumption Not on file 12/08/2023 Average Number of Drinks Not on file 024 Frequency of Binge Drinking Not on file 11/10 Score 0 12/08/2023 Depression Answer Date Recorded Patient Health Questionnaire-9 Score 0 12/08/2023 Patient Health Questionnaire-9 Score 0 12/08/2023 Last PHQ-9: Questionnaire Data Not on file 0 12/08/2023 Housing Stability Answer Date Recorded What is [...] Date Recorded Patient Health Questionnaire-2 Score 0 12/08/2023 Sex and Gender Information Value Date Recorded Sex Assigned at Male 09/07/2022 10:15 AM EDT Legal Sex Male 10:15 AM EDT Gender Identity Male 09/07/2022 10:15 AM EDT Sexual Orientation Straight 09/07/2022 10 :15 AM EDT documented as of this encounter Plan of Treatment Not on file documented as of this encounter Procedures Procedure Name Priority Date/Time Associated Diagnosis Comments US RENAL BI Routine 03/08/2024 12:37 PM EDT COLONOSCOPY Routine 07/18/2019 7:44 AM EDT documented in this encounter Results * US RENAL BI (03/08/2024 12:37 PM EDT) Anatomical Region Laterality Modality Abdomen Ultrasound 03/08/2024 12:3 7 PM EDT Narrative 03/10/2024 10:07 AM EDT ? [facility] ?[address] ?[place] [address] ? Ultrasound Report ? Signed ? Patient: Jaron Gay,Armando ?MR#: [id number] ?? [id number] ? : 1955 ?Acct:[id number] ? Age/Sex: 68 / M ?ADM Date: 03/08/24 ? Loc: HO.US ? Attending Dr: Bladimir Le MD ? Ordering Physician: Bladimir Le MD ?? Date of Service: 03/08/24 ?? Procedure(s): US renal BI ?? Accession Number(s): [id number] ? cc: Bladimir Le MD; Krysta Locktet SENIOR CYTOGENETIC TECHNOLOGIST ? EXAMINATION: ?? US RETROPERITONEAL LIMITED (RENAL ONLY) ? CLINICAL INFORMATION: ?? Chronic kidney disease, stage 3 unspecified. ? COMPARISON: ?? CT abdomen and pelvis 10/03/2021. Ultrasound abdomen complete ?? 04/06/2019. ? TECHNIQUE: ?? Real-time imaging of the kidneys. ? FINDINGS: ? RIGHT KIDNEY: 10.8 x 5.3 x 6.4 cm (SAG x AP x TRV). The kidney is ?? normal in size, contour, and echogenicity. Renal cortical thickness is ?? normal. No calculi or focal parenchymal lesions. No hydronephrosis. ? LEFT KIDNEY: 11.3 x 4.3 x 4.5 cm (SAG x AP x TRV). The kidney is normal ?? in size, contour, and echogenicity. Renal cortical thickness is normal. ?? No renal calculi or hydronephrosis. 1.3 cm simple cyst in the mid ?? kidney. No follow-up imaging is recommended. ? US/US renal BI ?? IMPRESSION: ?? Normal-appearing renal parenchyma. No hydronephrosis. ? Dictated By: ?Smooth Beth MD ? Signed By: ?<Electronically signed by Smooth Beth MD in OV> ?03/10/24 1004 ? DD/ 1237 ? TD/TT: ? Customer Service Leader: ELAINE ? Procedure Note Lachelle, Peggy - 03/10/2024 [place] [address] Ultrasound Report Signed Patient: Bandar Ba#: [id number] : 6Acct:[id number] Age/Sex: 68 / MADM Date: 03/08/24 Loc: HO.US Attending Dr: Bladimir Le MD Ordering Physician: Bladimir Le MD Date of Service: 03/08/24 Procedure(s): renal BI Accession Number(s): [id number] cc: Bladimir Le MD; Krysta Lockett [facility] EXAMINATION: US RETROPERITONEAL LIMITED (RENAL ONLY) CLINICAL INFORMATION: Chronic kidney disease, stage 3 unspecified. COMPARISON: CT abdomen and pelvis 10/03/2021. Ultrasound abdomen complete 04/06/2019. TECHNIQUE: Real-time imaging of the kidneys. FINDINGS: RIGHT KIDNEY: 10.8 x 5.3 x 6.4 cm (SAG x AP x TRV). The kidney is normal in size, contour, and echogenicity. Renal cortical thickness is normal. No calculi or focal parenchymal lesions. No hydronephrosis. LEFT KIDNEY: 11.3 x 4.3 x 4.5 cm (SAG x AP x TRV). The kidney is normal in size, contour, and echogenicity. Renal cortical thickness is normal. No renal calculi or hydronephrosis. 1.3 cm simple cyst in the mid kidney. No follow-up imaging is recommended. US/US renal BI IMPRESSION: Normal-appearing renal parenchyma. No hydronephrosis. Dictated By: Smooth Beth MD Signed By: <Electronically signed by Smooth Beth MD in OV> 03/10/24 1004 DD/ 1237 TD/TT: Customer Service Leader: ELAINE [facility] External Provider IMG US PROCEDURES Final Result * Hm Colonoscopy (07/18/2019 7:44 AM EDT) Historical Provider HEALTH MAINTENANCE Final Result documented in this encounter Visit Diagnoses Not on filedocumented in this encounter Additional Health Concerns Assessment Noted Time PHQ-9 Depression Total Score: 0 12/08/19 24 10:42 AM EST documented as of this encounter Care Teams Director Child Development Center Relationship Specialty Start Date End Date Krysta Lockett FNP [address] [place] [id number] PCP - General Family Medicine 10/27/22 documented as of this encounter
--- OUTSIDE RECORDS SUMMARY | 2024-12-13 11:25 | XMS_ITS | Encounter Summary ---
Author Organization [employer] Address [address] [facility] [address]t [place] [address] Care Team Providers Care Airborne Missions Systems Name Role Phone [place] [facility] Primary Care Provider [phone] Encounter Details Date Type Department Care Team (Late st Contact Info) Description 07/19/2024 Orders Only [facility] [address] [place], [place] [phone] [facility] [address] [place], [place] [phone] Social History Tobacco Use Types Packs/Day Years [...] documented as of this encounter Care Teams [employer]borne [employer] Systems Relationship Specialty Start Date End Date Krysta Lockett FNP [address] [place] [id number] PCP - General Family Medicine 10/27/22 documented as of this encounter
--- OUTSIDE RECORDS SUMMARY | 2024-12-13 11:25 | XMS_ITS | Clinical Summary ---
Author Organization [employer] Address [address] [place] [address] 7t [place] [address] Care Team Providers Care Packaging Sales Representative Name Role Phone Krysta Lockett NAILER OPERATOR Primary Care Provider [phone] Allergies Active Allergy Reactions Criticality Noted Date Comments Aspirin Itching 11/13/2010 Other reaction(s): Itching Nsaids 07/10/2021 Other reaction(s): Other (see comments) Penicillins Itching 11/13/2010 Other reaction(s): Itching Medications traMADol (Ultram) 50 MG tablet TAKE 1 TABLET BY MOUTH EVERY TWELVE HOURS 12/01/19 23 Active Spiriva HandiHaler 18 MCG inhalation capsuleIndicatio ns:Chronic obstructive pulmonary disease, unspecified COPD type (CMS/HCC) USE 1 CAPSULE FOR INHALATION ONCE A DAY DO NOT SWALLOW CAPSULE 30 capsule 11 01/23/20 23 Active midodrine (Proamatine) 2.5 MG tabletIndication s:Orthostatic hypotension TAKE 1 TABLET BY MOUTH TWICE DAILY IN THE MORNING AND AT BEDTIME 60 tablet 3 11/27/19 24 Active gabapentin (Neurontin) 100 MG capsuleIndicatio ns:Pain TAKE 1 CAPSULE BY MOUTH AT BEDTIME 30 capsule 3 11/27/19 24 Active ascorbic acid (Vitamin C) 250 MG chewable tabletIndication s:Seasonal allergies TAKE 1 TABLET BY MOUTH EVERY MORNING WITH IRON (CHEW) 90 tablet 1 11/29/19 24 Active loratadine (Claritin) 10 MG tabletIndication s:Seasonal allergies TAKE 1 TABLET BY MOUTH EVERY DAY 90 tablet 1 11/29/19 24 Active FeroSul 325 (65 Fe) MG tabletIndication s:Anemia of chronic disease TAKE 1 TABLET BY MOUTH EVERY MORNING 90 tablet 1 11/29/19 24 Active fluticasone (Flonase) 50 MCG/ACT nasal sprayIndications :Seasonal allergies USE 2 SPRAYS IN EACH NOSTRIL EVERY DAY 48 g 1 11/29/19 24 Active Fluticasone-Salm eterol 100-50 MCG/ACT aerosol powderIndication s:Chronic obstructive pulmonary disease, unspecified COPD type ([facility]) INHALE 1 PUFF TWICE DAILY. RINSE MOUTH AFTER USING. 60 each 11 01/28/20 24 Active glucose 4 g chewable tabletIndication s:Type 2 diabetes mellitus with hypoglycemia without coma, without long-term current use of insulin ([facility]) Chew 4 tablets (16 g) if needed for low blood sugar. 50 tablet 12 06/28/20 24 025 Active Diclofenac Sodium 1 % gelIndications:O ther chronic pain Apply topically to affected areas twice daily 150 g 1 06/28/20 24 Active Continuous Glucose Sensor (FreeStyle Iglesia 2 Sensor) miscIndications: Type 2 diabetes mellitus with hypoglycemia without coma, without long-term current use of insulin ([facility]) Apply 1 sensor every 14 days 2 each 2 06/30/20 24 Active Continuous Glucose Plumbing Assembler Installer (FreeStyle Iglesia 2 [place]) deviceIndication s:Type 2 diabetes mellitus with hypoglycemia without coma, without long-term current use of insulin ([facility]) Scan sensor every 8 hours 1 each 06/30/20 24 Active folic acid (Folvite) 1 MG tabletIndication s:Stage 3a chronic kidney disease ([facility]) TAKE 1 TABLET BY MOUTH EVERY MORNING 90 tablet 1 07/21/20 24 Active acetaminophen (Tylenol Extra Strength) 500 MG tabletIndication s:Chronic left shoulder pain Take 2 tablets (1,000 mg) by mouth every 6 (six) hours if needed for moderate pain. 30 tablet 1 08/09/20 24 025 Active lidocaine (Lidoderm) 5 % patchIndications :Chronic left shoulder pain Apply topically to affected areas. Leave on for up to 12 hours 30 patch 1 08/09/20 24 Active omeprazole (PriLOSEC) [address] capsuleIndicatio ns:Dyspepsia TAKE 1 CAPSULE BY MOUTH EVERY MORNING BEFORE A MEAL 90 capsule 1 08/23/20 24 Active traZODone (Desyrel) 100 MG tablet TAKE 1 TABLET BY MOUTH AT BEDTIME 30 tablet 5 09/04/20 24 Active Eliquis 5 MG tabletIndication s:Acute deep vein thrombosis (DVT) of other vein of lower extremity, unspecified laterality (CMS/HCC) TAKE 1 TABLET BY MOUTH TWICE DAILY ONCE EVERY MORNING AND ONCE EVERY NIGHT AT BEDTIME 60 tablet 3 11/24/19 25 Active Eliquis 5 MG tabletIndication s:Acute deep vein thrombosis (DVT) of other vein of lower extremity, unspecified laterality (CMS/HCC) TAKE 1 TABLET BY MOUTH TWICE DAILY ONCE IN THE MORNING AND ONCE AT BEDTIME 60 tablet 3 07/21/20 24 025 Discontinued Active Problems Problem Noted Date Diagnosed Date Acquired lymphedema of lower extremity 3 Assessment & Plan (05/28/2023 3:19 PM EDT): -last vascular visit note obtained today was in 12/17/[address] Beckham: reported to have stage 2 lymphedema -reported that pt tried 30 mmHg compression garments with no improvement foe which was prescribed pneumatic compression -Bl US venous reflux/insufficiency US 12/09/2022: hemodynamic significant reflux of bilateral saphenous veins . In left leg the proximal tight to above the knee appears thrombosed. -Left LE doppler US 01/2023: There is normal venous compression and respiratory variation and augmented flow. The visualized common femoral vein, superficial femoral vein, profunda femoral vein, popliteal vein, and the trifurcation region shows no evidence of deep venous thrombosis. No left popliteal cyst. Mild to moderate subcutaneous edema in the left calf. 04/2023 Cr 1.3, LFts wnl, hb 11.8 , hb1AC 4.5 -seems slowly worsening of his chronic LE edema bl w no signs of symptoms concerning x DVT at this time , per pt he is using pneumatic compression w no improvement -gave today to pt # [phone] of his vascular office to call and reschedule apt --I called today as well Dr Beckham's office and left my phone number for a call back from vascular -referred to cards to r/o cardiac etiology -tylenol prn x pain in legs -raise legs -continue use of pneumatic compression -alarm signs and symptoms explained Venous insufficiency 12/23/2022 Overview (12/23/2022): ?? Followed by [facility] vascular ?? Negative LE ultrasound 11/2022 Assessment & Plan (12/23/2022 9:45 PM EST): ?? Encouraged frequent leg elevation and use of compression stockings. Advised patient to bring stockings to upcoming vascular appt to review instructions for how to put on correctly. Pt may benefit from furosemide, however will hold off at this time since pt has upcoming vascular f/u ?? Contact HC if sx worsen or do not improve with treatment Status post bariatric surgery 12/23/2022 Healthcare maintenance 12/23/2022 Overview (12/23/2022): C-scope: 2019, polyps removed. Last record reports 5 or 10 year follow up based on pathology report which is not in chart PSA: Last PSA on record ?2014, 0.34 HCV Screen: Negative 11/2022 HIV Screen: Negative 11/2022 Gait instability 12/15/2022 History of DVT (deep vein thrombosis) 12/15/2022 Overview (12/23/2022): ?? Followed by [facility] Dr. 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 Started on eliquis 5mg b.I.d x 3 months. Have follow up with vascular scheduled 10/16/2024 Assessment & Plan (05/28/2023 3:26 PM EDT): Pt w hx of DVT /PE -from obtained today vascular note plan about AC per Dr Beckham's note in 12/2022 was to complete 6 months -Pt to f w PCP in 4 weeks to discuss about AC x now to continue as well advised to discuss w vascular specialist Anemia of chronic disease 07/28/2017 Overview (12/23/2022): ?? Baseline Hgb 11.6 12/15/22 Chronic obstructive lung disease 07/28/2017 Overview (12/21/2023): Trelegy Yearly Ct scan for lung nodule Followed by pulmonology Non-smoker, alpha 1 antitrypsin WNL Assessment & Plan (12/23/2022 9:47 PM EST): ?? Continue current regimen ?? Refer to pulmonology for further evaluation after recent exacerbation requiring hospitalization ?? Repeat CXR in 2 weeks for resolution of PNU ?? ED precautions reviewed to include fever, increased sputum production, shortness of breath Hypertensive disorder 07/28/2017 Overview (02/02/2023): ?? Diet controlled since bariatric surgery Maintenance: BMP: 12/2022 Lipid Panel: 12/2022 - Aerobic exercise to reduce BP. Initial goal of 30 min walk 3-5x/week. Increase as tolerated. - low-sodium diet (goal: <2g/day) and heart healthy diet such as DASH to reduce BP and prevent ASCVD. - Home BP monitoring 1-2 x day with goal of <140/90. - Seek immediate medical attention for chest pain, palpitations, SOB, syncope, or sudden changes in mental status. - Do not change or discontinue current prescriptions without first consulting health care provider Assessment & Plan (05/28/2023 3:17 PM EDT): Slight elevated BP here today Pt reports last week episode of Chest discomfort not currently but pt thinks is associated w gasses Does reports orthopnea EKG today : HR 50, NSR no ischemic findings -referred today to type photography supervisor x complete eval of echocardiogram x orthopnea and given risk factors r/CAD -alarm signs and symptoms discussed w pt -pt to f w PCP in 4 weeks Memory impairment 07/28/2017 Overview (12/15/2022): ?? Brain MRI 06/2022 unremarkable ?? B12 and B1 WNL ?? Followed by neurology Mood disorder 07/28/2017 Stage 3 chronic kidney disease 07/28/2017 Overview (12/23/2022): ?? [facility] Donovan GABRIEL Assessment & Plan (12/17/2023 5:52 PM EST): ?? Will refer back to nephrology ?? Avoid NSAIDs, maintain hydration Type 2 diabetes mellitus 07/28/2017 Overview (12/17/2023): ?? Diet controlled after bariatric surgery 2020 ?? A1c 5.0% 12/14/2020 Foot Exam: Complete at follow up Eye Exam: Discuss at follow up ASCVD: Calculate pending updated labs Statin: No ASA: No (on eliquis) TERESE/ARB: No Encouraged regular aerobic exercise for improved glycemic control Encouraged daily foot checks Encouraged lean protein snacks and to avoid foods high in sugar and simple carbohydrates Treatment Goals: A1c goal: <7% FBG goal: <130 2 hour post prandial goal: <180 Assessment & Plan (12/17/2023 5:53 PM EST): Lab Results Component Value Date HGBA1C 5.5 12/08/2023 ?? Well controlled ?? Will update labs Gastroesophageal reflux disease without esophagi tis 07/28/2017 Hyperlipidemia associated wi th type 2 diabetes mellitus ([facility]) 07/28/2017 Osteoarthritis of knee 07/28/2017 Resolved Problems Problem Noted Date Diagnosed Date Resolved Date Noncompliance with treatment 07/28/2017 12/23/2022 Seasonal allergic rhinitis 07/28/2017 0 12/23/2022 Uncontrolled type 2 diabetes mellitus 12/13/2015 12/23/2022 Encounters Date Type Department Care Team Description 11/23/2024 Refill [facility] [address] [place] [address] Krysta Lockett FNP Acute deep vein thrombosis (DVT) of other vein of lower extremity, unspecified laterality ([facility]) 09/12/2024 Telephone [facility] [address] [place] [address] LothianKrysta duong FNP Medication Question from Last 3 Months Immunizations Name Administration Dates Next Due Hep B, adult 11/19/2014,09/18/2014,03/15/2014 Influenza High-dose Quadriva lent Preservative Free 07/30/2022 Influenza injectable quadriv alent IIV4 with preservative 08/01/2018,07/28/2017,09/02/2015 Influenza injectable quadriv alent preservative free 12/08/2023,09/06/2019 Influenza, IIV3, injectable 09/18/2014,0 07/07/2011,08/08/2010,07/29,07/29/2007,08/23/2006,11/21/2004 Influenza, Split (incl. patrick fied surface antigen) 07/26/2013 Pfizer Covid-19 Vaccine 12+ 09/10/2023 Pneumococcal Conjugate PCV 13 04/24/2021 Pneumococcal Conjugate PCV 20 12/08/2023 Pneumococcal Polysaccharide PPSV23 09/22/2010, TD (adult), 2 Lf tetanus tox oid, preservative free, adsorbed 11/21/2004 Td (adult), 5 Lf tetanus tox oid, preservative free, adsorbed 12/20/2012 Tdap 12/08/2023,09/26/2013 Zoster, Recombinant 09/02/2023,07/01/2023 Zoster, live 07/28/2017 Social History Tobacco Use Types Packs/Day Years Used Date Smoking Tobacco: Former Cigarettes Passive Smoke Exposure: Current Smokeless Tobacco: Never Tobacco Cessation:Counseling Given: Not Answered Alcohol Use Standard Drinks/Week Comments Not Currently 0 (1 standard drink = 0.6 oz pur e alcohol) Alcohol Answer Date Recorded Frequency of Alcohol Consumption Not on file 12/08/2023 Average Number of Drinks Not on file 024 Frequency of Binge Drinking Not on file 11/10 Score 0 12/08/2023 Depression Answer Date Recorded Patient Health Questionnaire-9 Score 0 08/09/2024 Patient Health Questionnaire-9 Score 0 08/09/2024 Last PHQ-9: Questionnaire Data Not on file 1 Housing Stability Answer Date Recorded What is [...] Date Recorded Patient Health Questionnaire-2 Score 0 08/09/2024 Sex and Gender Information Value Date Recorded Sex Assigned at Male 09/07/2022 10:15 AM EDT Legal Sex Male 10:15 AM EDT Gender Identity Male 09/07/2022 10:15 AM EDT Sexual Orientation Straight 09/07/2022 10 :15 AM EDT Last Filed Vital Signs Vital Sign Reading Time Taken Comments Blood Pressure 125/68 08/09/2024 9:13 AM EDT Pulse 63 08/09/2024 9:13 AM EDT Temperature 36.4 ??C (97.5 ??F) 08/09/2024 9:13 AM ED T Respiratory Rate 20 08/09/2024 9:13 AM EDT Oxygen Saturation 98% 08/09/2024 9:13 AM EDT Inhaled Oxygen Concentration - - Weight 85.8 kg (189 lb 3.2 oz) 08/09/2024 9:13 A M EDT Height 177.8 cm (5' 10 ) 08/09/2024 9:13 AM EDT Body Mass Index 27.15 08/09/2024 9:13 AM EDT Plan of Treatment Health Maintenance Due Date Last Done Comments CT Colonography 1956 FIT DNA/Cologuard 1956 FIT 1956 FOBT 1956 Sigmoidoscopy 1956 Diabetes: Foot Exam 1966 Eye Exam 1966 Alcohol/Substance Use Screening 1968 RSV Patients and Patients Aged 60 years or older (1 - Risk 60-74 years 1-dose series) 2016 Colonoscopy 07/18/2022 07/18/2019 Colorectal Cancer Screening 07/18/2022 Lipid Panel 04/26/2024 04/26/2023, 02/0 05/2023, 12/26/2021, Additional history exists SDOH Screening 12/08/2024 12/08/2023 Diabetes: Hemoglobin A1C 12/29/2024 024, 12/08/2023, 04/26/2023, Additional history exists Diabetes: Urine Protein Screening 03/13/2025 03/13/2024, 12/08/2023, 04/23/2021, Additional history exists Depression Screening 08/09/2025 08/09/2024, 08/09/20 24 Tobacco Screening 08/16/2025 08/16/2024 DTaP/Tdap/Td Vaccines (3 - Td or Tdap) 12/08/2033 12/08/2023, 09/26/2013, 12/20/2012, Additional history exists Hepatitis B Vaccines Completed 11/19/2014, 09/18/2014, 03/15/2014 Hepatitis C Screening Completed 12/15/2022 Zoster Vaccines Completed 09/02/2023, 06/09, 07/28/2017 Pneumococcal Vaccine: 50+ Years Completed 12/08/2023, 04/24/2021, 09/22/2010, Additional history exists COVID-19 Vaccine Completed 07/15/2024, 01/2023, 10/15/2021, Additional history exists Influenza Vaccine Completed 07/15/2024, , 07/30/2022, Additional history exists HIB Vaccines Aged Out No longer eligi ble based on patient's age to complete this topic HPV Vaccines Aged Out No longer eligi ble based on patient's age to complete this topic Hepatitis A Vaccines Aged Out No long er eligible based on patient's age to complete this topic IPV Vaccines Aged Out No longer eligi ble based on patient's age to complete this topic Meningococcal Vaccine Aged Out No foster holly eligible based on patient's age to complete this topic RSV under 20 months Aged Out No longe r eligible based on patient's age to complete this topic Rotavirus Vaccines Aged Out No longer eligible based on patient's age to complete this topic Procedures Procedure Name Priority Date/Time Associated Diagnosis Comments POCT GLYCATED HEMOGLOBIN, TOTAL Routine 06/28/2024 10:43 AM EDT Type 2 diabetes mellitus with hypoglycemia without coma, without long-term current use of insulin ([facility]) PROTEIN CREATININE RATIO, URINE Routine 03/13/2024 9:57 AM EDT LIPID PANEL, STANDARD Routine 04/26/2023 10:00 AM EDT HEPATITIS C AB W/REFL TO HCV RNA, QN, PCR Routine 12/15/2022 9:44 AM EST Healthcare maintenance HM COLONOSCOPY Routine 07/18/2019 7:44 AM EDT from Last 3 Months or Most Recently Relevant to Health Maintenance Results * POCT HGB A1C (06/28/2024 10:43 AM EDT) Hemoglobin A1C 5.5 4.0 - 6.0 % QC Media Lot # [id number] Lot# Expiration Date ,[id number] Blood 06/28/2024 10:4 3 AM EDT [facility] NAILER OPERATOR POINT OF CARE TEST ENTER/EDIT ORDERABLES Final Result * (ABNORMAL) Protein Creatinine Ratio, Urine (03/13/2024 9:57 AM EDT) Creatinine, Urine 97.69 mg/dL [facility] Protein, Total, Random Urine 14(H) <12 mg/dL [facility] Protein/Creatin ine Ratio, Ur 0.14 <0.2 [facility] Comment:The spot urine prote in:creatinine ratio may increase to 0.3during normal . 03/13/2024 9:57 AM EDT 03/13/2024 11:31 AM EDT Generic External Data Provider LAB URINE ORDERAB LES Final Result [facility] [address] [place] [address] [phone] * Lipid Panel, Standard (04/26/2023 10:00 AM EDT) Triglycerides 46 mg/dL [facility] Comment:Desirable Triglyceri de: less than 150 mg/dLBorderline High Triglyceride 150-199 mg/dLHigh Triglyceride: 200-499 mg/dLVery High Triglyceride: greater than or equal to 5OO mg/dL Cholesterol 148 mg/dL [facility] Comment:Desirable Cholestero l: less than 200 mg/dLBorderline High Cholesterol: 200-239 mg/dLHigh Cholesterol: greater than 239 mg/dL LDL Cholesterol Calculated 82 mg/dl [facility] Comment:Desirable LDL: less than 100 mg/dLNear Optimal/Above Optimal LDL: 110- 129 mg/dLBorderline High LDL: 130-159 mg/dLHigh LDL: 160-189 mg/dLVery High LDL: greater than or equal to 190 mg/dL HDL Cholesterol 57 mg/dL [facility] Comment:Desirable HDL: great er than 40 mg/dL Note: This HDL assay may give artificially low results in patients with liver disease. 04/26/2023 10:0 0 AM EDT 04/26/2023 10:00 AM EDT [facility] External Provider LAB BLO OD ORDERABLES Final Result [facility] [address] [place] [phone] * Hepatitis C Antibody with Reflex to HCV, RNA, Quantitative, Real-Time PCR (12/15/2022 9:44 AM EST) Hepatitis C Antibody NON-REACT SIDDHARTH NON-REACT SIDDHARTH [facility] [place] Index <0.02 <1.00 [facility] [place] [employer] Comment: HCV antibody was non-reactive. There is no laboratory evidence of HCV infection. In most cases, no further action is required. However, if recent HCV exposure is suspected, a test for HCV RNA (test code 84904) is suggested. For additional information please refer to http://education.Novint/faq/BTV86m8 (This link is being provided for informational/ educational purposes only.) Blood Venous blood specimen / Unknown 12/15/2022 9:44 AM EST 12/15/2022 9:45 AM EST Narrative [facility] - 12/16/2022 2:26 PM EST FASTING:UNKNOWN FASTING: UNKNOWN [facility] LAB BLOOD ORDERABLES Final Re sult [facility] [address] [facility], [address], [place] [address] [facility] [address] [facility] [address], ([address]) [place] [address] * Hm Colonoscopy (07/18/2019 7:44 AM EDT) Historical Provider HEALTH MAINTENANCE Final Result from Last 3 Months or Most Recently Relevant to Health Maintenance Insurance [facility] Care Teams Packaging Sales Representative Relationship Specialty Start Date End Date [facility] [address] [place] [phone] PCP - General Family Medicine 10/27/22
--- OUTSIDE RECORDS SUMMARY | 2024-12-13 11:25 | XMS_ITS | Encounter Summary ---
Author Organization [employer] Address [address] [place] [address] Care Team Providers Care Fig Washer Name Role Phone [place] [facility] Primary Care Provider Encounter Details Date Type Department Care Team (Late st Contact Info) Description 09/01/2023 Abstract [facility] [address] [place], [place] [phone] [place] [facility] [address] [place] [address] Social History Tobacco Use Types Packs/Day Years [...] documented as of this encounter Care Teams Fig Washer Relationship Specialty Start Date End Date Krysta Lockett FNP [address] [place] [phone] PCP - General Family Medicine 10/27/22 documented as of this encounter
--- OUTSIDE RECORDS SUMMARY | 2024-12-13 11:25 | XMS_ITS | Encounter Summary ---
Author Organization [employer] Address [address] [place] [address] [address] [place] [address] Care Team Providers Care Inspector Type Name Role Phone Krysta Lockett [facility] Primary Care Provider [phone] Encounter Details Date Type Department Care Team (Late st Contact Info) Description 11/18/2022 Orders Only [facility] [address] [place], [place] [phone] Amanda Haynes LPN Social History Tobacco Use Types Packs/Day Years [...] on filedocumented in this encounter Care Teams Inspector Type Relationship Specialty Start Date End Date Krysta Lockett FNP [address] [place] [address] PCP - General Family Medicine 10/27/22 documented as of this encounter
--- OUTSIDE RECORDS SUMMARY | 2024-12-13 11:25 | XMS_ITS | Encounter Summary ---
Author Organization [employer] Address [address] [place] [address] Care Team Providers Care Jacquard Loom Card Changer Name Role Phone [place] [facility] Primary Care Provider [phone] Reason for Visit * Reason Comments Med Refill Encounter Details Date Type Department Care Team ([facility] st Contact Info) Description 11/23/2024 Refill [facility] [address] [place], [place] [phone] [facility] [address] [place] [address] Acute deep vein thrombosis (DVT) of other vein of lower extremity, unspecified laterality (CMS/HCC) Social History Tobacco Use Types Packs/Day Years [...] as of this encounter Visit Diagnoses Diagnosis Acute deep vein thrombosis (DVT) of other vein of lower extremity, unspecified laterality (CMS/HCC) documented in this encounter Additional Health Concerns Assessment Noted Time PHQ-9 Depression Total Score: 0 08/09/20 24 9:14 AM EDT documented as of this encounter Care Teams Jacquard Loom Card Changer Relationship Specialty Start Date End Date Krysta Lockett FNP [address] [place] [address] PCP - General Family Medicine 10/27/22 documented as of this encounter
--- OUTSIDE RECORDS SUMMARY | 2024-12-13 11:25 | XMS_ITS | Clinical Summary ---
Author Organization [facility] ity Address [address] [place] [address] Care Team Providers Care Parking Analyst Name Role Phone Unavailable Primary Care Provider Unavailabl e Social History Tobacco Use Types Packs/Day Years Used Date Smoking Tobacco: Never Assessed Sex and Gender Information Value Date Recorded Sex Assigned at Not on file Gender Identity Not on file Sexual Orientation Not on file Plan of Treatment Health Maintenance Due Date Last Done Comments DTaP,Tdap,and Td Vaccines (1 - Tdap) 1975 Zoster Vaccines (1 of 2) 2006 Pneumococcal Vaccine: 65+ Ye ars (1 of 1 - PCV) 2021 Abdominal Aortic Aneurysm (A AA) Screen 10/11/2022 Cholesterol Screening (Lipid Panel) 10/11/2022 Colorectal Cancer Screening: Colonoscopy 10/11/2022 Depression Screening 10/11/2022 Falls Risk Assessment 10/11/2022 Hepatitis C Screening 10/11/2022 Social Influencers of Health Screening 10/11/2022 COVID-19 Vaccine (1 - 2023-2 5 season) 2024 Influenza Vaccine (#1) 2024 RSV Immunization Patients 60 + Years Old (1 - 1-dose 75+ series) 2031 HIB Vaccines Aged Out No longer eligi ble based on patient's age to complete this topic HPV Vaccines Aged Out No longer eligi ble based on patient's age to complete this topic Hepatitis A Vaccines Aged Out No long er eligible based on patient's age to complete this topic Hepatitis B Vaccines Aged Out No long er eligible based on patient's age to complete this topic IPV Vaccines Aged Out No longer eligi ble based on patient's age to complete this topic MMR Vaccines Aged Out No longer eligi ble based on patient's age to complete this topic Meningococcal ACWY Vaccine Aged Out N o longer eligible based on patient's age to complete this topic RSV Immunization Patients Un sally 20 months Aged Out No longer eligible b ased on patient's age to complete this topic Varicella Vaccines Aged Out No longer eligible based on patient's age to complete this topic
--- OUTSIDE RECORDS SUMMARY | 2024-12-13 11:25 | XMS_ITS | Encounter Summary ---
Author Organization [employer] Address [address] [facility] 7t [place] [address] Care Team Providers Care Service Unit Operator Name Role Phone Krysta Lockett ADJUNCT PSYCHOLOGY PROFESSOR Primary Care Provider [phone] Encounter Details Date Type Department Care Team (Late st Contact Info) Description 09/24/2023 Abstract [facility] MEDICINE [address] [place], [place] [phone] Richa Rehman Social History Tobacco Use Types Packs/Day Years [...] documented as of this encounter Care Teams Service Unit Operator Relationship Specialty Start Date End Date Krysta Lockett FNP [address] [place] [address] PCP - General Family Medicine 10/27/22 documented as of this encounter
--- OUTSIDE RECORDS SUMMARY | 2024-12-13 11:25 | XMS_ITS | Clinical Summary ---
Author Organization [facility] [employer] [facility] Facility Address [address] [address] Care Team Providers Care General Counsel Name Role Phone Unavailable Primary Care Provider Unavailabl e Allergies Active Allergy Reactions Criticality Noted Date Comments Aspirin 02/06/2021 Nsaids Other (see comments) 07/10/2021 Penicillins 02/06/2021 Medications albuterol (5 MG/ML) 0.5% nebulizer solution Take 3 mL by mouth 4 (four) times a day Active atorvastatin (LIPITOR) 20 MG tablet Take 20 mg by mouth at bed time 1 Active Trulicity 0.75 MG/0.5ML solution pen-injector INJECT ONE PEN (=0.75MG) SUBCUTANEOUSLY ONCE A WEEK DIRECTED 1 Active fluticasone (FLONASE) 50 MCG/ACT nasal spray Administer 1 spray into each nostril 1 (one) time each day 1 Active fluticasone-sa lmeterol (Advair Diskus) 100-50 MCG/DOSE diskus inhaler 1 puff by Other route 2 (two) times a day Active gabapentin (NEURONTIN) 300 MG capsule Take 1 capsule by mouth 1 (one) time each day Active insulin glargine (Lantus SoloStar) 100 UNIT/ML injection Inject 75 Units under the skin at bed time Active loratadine (Claritin) 10 MG tablet Take 1 tablet by mouth 1 (one) time each day Active pioglitazone (Actos) 45 MG tablet Take 1 tablet by mouth 1 (one) time each day Active tiotropium (Spiriva HandiHaler) 18 MCG per inhalation capsule Take 1 capsule by mouth every morning Active traMADol (ULTRAM) 50 MG tablet Take 1 tablet by mouth 2 (two) times a day Active Acetaminophen Extra Strength 500 MG tablet TAKE 2 TABLETS BY MOUTH EVERY 6 HOURS NEEDED FOR PAIN 1 Active clotrimazole (LOTRIMIN) 1 % cream APPLY TO AFFECTED AREA(S) AND SURROUNDING AREA(S) TWICE DAILY IN THE MORNING AND EVENING 1 Active Mi-Acid Gas Relief 80 MG chewable tablet CHEW 1 TABLET BY MOUTH EVERY 3 TO 4 TIMES PER DAY NEEDED FOR FOR ABDOMINAL FOR GAS 1 Active Active Problems Problem Noted Date Diagnosed Date Chronic anemia 02/06/2021 Chronic kidney disease stage 3 02/06/2021 Hypertensive disorder 02/06/2021 Uncontrolled type 2 diabetes mellitus 02/06/2021 Overview (08/08/2024): Replacing diagnoses that were inactivated after the 08/08/24 Regulatory Import Family History Medical History Relation Comments Hypertension Mother Diabetes Sibling 1 Hypertension Sibling 2 Cancer Sibling 3 Relation Status Comments Father Mother Sibling 1 Sibling 2 Sibling 3 Social History Tobacco Use Types Packs/Day Years Used Date Smoking Tobacco: Never Smokeless Tobacco: Never Sex and Gender Information Value Date Recorded Sex Assigned at Not on file Legal Sex Male 4:58 PM EST Gender Identity Not on file Sexual Orientation Not on file Last Filed Vital Signs Vital Sign Reading Time Taken Comments Blood Pressure 100/58 07/11/2021 2:17 PM EDT Pulse 80 07/11/2021 2:17 PM EDT Temperature - - Respiratory Rate - - Oxygen Saturation 98% 07/11/2021 2:17 PM EDT Inhaled Oxygen Concentration - - Weight 121 kg (266 lb 6.4 oz) 07/11/2021 2:17 PM EDT Height - - Body Mass Index - - Plan of Treatment Health Maintenance Due Date Last Done Comments Pneumococcal Vaccine: 65+ Ye ars (1 of 2 - PCV) 1962 Colorectal Cancer Screening: Annual FOBT 2005 Colorectal Cancer Screening: Colonoscopy 2005 Colorectal Cancer Screening: Sigmoidoscopy 2005 Diabetes: Hemoglobin A1C 12/08/2020 08/21/2020 Diabetes: Ophthalmology Exam 12/08/2020 Diabetes: Pedal Pulse Checked 12/08/2020 Diabetes: Sensory Foot Exam 12/08/2020 Diabetes: Visual Foot Exam 12/08/2020 Influenza Vaccine (#1) 2024 Hepatitis B Vaccine Aged Out No longe r eligible based on patient's age to complete this topic Procedures Procedure Name Priority Date/Time Associated Diagnosis Comments BLOOD PANEL (HC) Routine 08/21/2020 12:0 0 AM EDT from Last 3 Months or Most Recently Relevant to Health Maintenance Results * (ABNORMAL) Blood Panel (08/21/2020 12:00 AM EDT) BUN 17 9 - 20 mg/dl [facility] Hematocrit 43.3 38 - 50 % [facility] Sodium 138 137 - 145 mmol/L [facility] Calcium 9.5 8.4 - 10.2 mg/dl [facility] eGFR Non- 56(L) >60 ml/min [facility] HDL 56 >40 mg/dl [facility] Hgb 13.6 13.0 - 16.5 g/dl [facility] Potassium 4.1 3.5 - 5.1 mmol/L [facility] Creatinine 1.50(H) 0.70 - 1.30 mg/dl [facility] eGFR 49(L) >60 ml/min [facility] Triglycerides 54 <150 mg/dl [facility] LDL,Direct 41 <130 mg/dl [facility] Hemoglobin A1C 10.9(H) <5 % [facility] 08/21/2020 us [facility] [id number] LICITED RESULTS Final Result [facility] from Last 3 Months or Most Recently Relevant to Health Maintenance Insurance [place]ICAID [place] MEDICARE [place]ICAID [place] MEDICARE
[2024-12-13 11:31] VITALS: BP 124/70; PULSE 69; O2SAT 97; BMI 28.2
== END 2024-12-13 11:45 | disposition home or self-care (01) ==
PROVIDERS: PCP Registered Nurse; Visit Provider Internal Medicine Nephrology
DX: N18.31 Chronic kidney disease, stage 3a (principal)
CPT/HCPCS: 99214

== ENCOUNTER → 2024-12-13 10:28 | Outpatient (BNVA) | payer OTHER, SELFPAY | PROVIDERS: PCP Registered Nurse; Visit Provider Internal Medicine Nephrology | DX: N18.31 Chronic kidney disease, stage 3a (principal) | CPT/HCPCS: 99212 ==

== ENCOUNTER 2024-12-29 15:38 | Outpatient (REF) | payer OTHER, SELFPAY ==
--- NOTE | ~2024-12-29 | CT_ITS ---
CLINICAL HISTORY: R91.8 - Other nonspecific abnormal finding of lung field CT chest without contrast Comparison: CT/LA/SR - CT CHEST WO IV CON - 09/08/23 10:25 EDT Findings: The heart is normal in size. No mediastinal adenopathy or pericardial effusion. Mild atherosclerotic disease of the aorta and coronary arteries. No suspicious nodule. Stable small focus of ground-glass density abutting the major fissure within the posterior left upper lobe on axial 57. Stable nodular thickening of the major fissure on the left, axial 81. No effusion or pneumothorax. Gynecomastia suggested. Gallstones layer dependently within the gallbladder. No acute osseous finding. Impression: Stable pulmonary findings. No suspicious nodule. Cholelithiasis. Gynecomastia. This document has been electronically signed by: Edson Dumont MD on 01/01/2025 12:44:38
--- OUTSIDE RECORDS SUMMARY | 2024-12-29 15:41 | XMS_ITS | Encounter Summary ---
Author Organization [employer] Address [address] [facility] 7t [place] [address] Care Team Providers Care Pile Driving Setter Name Role Phone [place] [facility] Primary Care Provider [phone] Encounter Details Date Type Department Care Team (Late st Contact Info) Description 07/19/2024 Orders Only [facility] [address] [place], [place] [phone] [facility] [address] [place], [place] [phone] Social History Tobacco Use Types Packs/Day Years [...] documented as of this encounter Care Teams Pile Driving Setter Relationship Specialty Start Date End Date Krysta Lockett FNP [address] [place] [address] PCP - General Family Medicine 10/27/22 documented as of this encounter
--- OUTSIDE RECORDS SUMMARY | 2024-12-29 15:41 | XMS_ITS | Clinical Summary ---
Author Organization [facility] Facility Address [address] [address] Care Team Providers Care Adult Ministries Director Name Role Phone Unavailable Primary Care Provider [...] % [facility] 08/21/2020 us [facility] Conversion LAB [id number] LICITED RESULTS Final Result [facility] from Last 3 Months or Most Recently Relevant to Health Maintenance Insurance [place]ICAID [place] MED[place]ARE [place]ICAID [place] MEDICARE
--- OUTSIDE RECORDS SUMMARY | 2024-12-29 15:41 | XMS_ITS | Encounter Summary ---
Author Organization [employer] Address [address] [facility] [address] 7[address] [place] [address] Care Team Providers Care Solar Project Manager Name Role Phone Krysta Lockett HAND BOOKED FOLDER AND STITCHER Primary Care Provider Encounter Details Date Type Department Care Team (Late st Contact Info) Description 02/16/2024 Orders Only [facility] MED[facility]INE [address] [place], [place] [phone] Provider, MD Larissa Social History Tobacco Use [...] EDT Narrative 03/10/2024 10:07 AM EDT ? [facility] ?[address] ?[place] [address] ? Ultrasound Report ? Signed ? Patient: Jaron Gay,Armando ?MR#: [id number] ?? [id number] ? : 1955 ?Acct:[id number] ? Age/Sex: 68 / M ?ADM Date: 03/08/24 ? Loc: HO.US ? Attending Dr: Bladimir Le MD ? Ordering Physician: Bladimir Le MD ?? Date of Service: 03/08/24 ?? Procedure(s): US renal BI ?? Accession Number(s): [id number] ? cc: Bladimir Le MD; Krysta Lockett HAND BOOKED FOLDER AND STITCHER ? EXAMINATION: ?? US RETROPERITONEAL LIMITED (RENAL [...] 1004 ? DD/ 1237 ? TD/TT: ? Attacher: ELAINE ? Procedure Note Lachelle, Peggy - 03/10/2024 [place] [address] Ultrasound Report Signed Patient: Bandar Ba#: [id number] : 6Acct:[id number] Age/Sex: 68 / MADM Date: 03/08/24 Loc: HO.US Attending Dr: Bladimir Le MD Ordering Physician: Bladimir Le MD Date of Service: 03/08/24 Procedure(s): renal BI Accession Number(s): [id number] cc: Bladimir Le MD; Krysta Lockett [facility] EXAMINATION: US RETROPERITONEAL LIMITED (RENAL ONLY) CLINICAL [...] in OV> 03/10/24 1004 DD/ 1237 TD/TT: Attacher: ELAINE [facility] External Provider IMG US PROCEDURES Final Result * Hm Colonoscopy (07/18/2019 7:44 AM EDT) Historical Provider HEALTH MAINTENANCE Final Result documented in this encounter Visit Diagnoses Not on filedocumented in this encounter Additional Health Concerns Assessment Noted Time PHQ-9 Depression Total Score: 0 12/08/19 24 10:42 AM EST documented as of this encounter Care Teams Solar Project Manager Relationship Specialty Start Date End Date Krysta Lockett FNP [address] [place] [address] PCP - General Family Medicine 10/27/22 documented as of this encounter
--- OUTSIDE RECORDS SUMMARY | 2024-12-29 15:41 | XMS_ITS | Encounter Summary ---
Author Organization [employer] Address [address] [place] [address] 7t [place] [address] Care Team Providers Care Retail Selling Specialist Name Role Phone Krysta Lockett [facility] Primary Care Provider [phone] Encounter Details Date Type Department Care Team (Late st Contact Info) Description 11/18/2022 Orders Only [facility] MEDICINE [address] [place], [place] [phone] Amanda Haynes LPN Social History Tobacco Use [...] on filedocumented in this encounter Care Teams Retail Selling Specialist Relationship Specialty Start Date End Date Krysta Lockett FNP [address] [place] [address] PCP - General Family Medicine 10/27/22 documented as of this encounter
--- OUTSIDE RECORDS SUMMARY | 2024-12-29 15:41 | XMS_ITS | Encounter Summary ---
Author Organization [employer] Address [address] [facility] 7t [place] [address] Care Team Providers Care Fine Artist Name Role Phone [facility] Primary Care Provider [phone] Reason for Visit * Reason Comments Med Refill Encounter Details Date Type Department Care Team ([facility] st Contact Info) Description 11/01/2023 Refill [facility] MEDICINE 230 [place], [place] [phone] [facility] 230 [place] [address] Dyspepsia Social History Tobacco Use Types Packs/Day [...] documented as of this encounter Care Teams Fine Artist Relationship Specialty Start Date End Date Krysta Lockett FNP [address] [place] [phone] PCP - General Family Medicine 10/27/22 documented as of this encounter
--- OUTSIDE RECORDS SUMMARY | 2024-12-29 15:41 | XMS_ITS | Encounter Summary ---
Author Organization [employer] Address [address] [place] [address] 7t [place] [address] Care Team Providers Care Contact Lens Flashing Puncher Name Role Phone Roberto Carlos Coleman MD Primary Care Provider Unava minoo [place] [facility] Primary Care Provider [phone] Encounter Details Date Type Department Care Team [...] on filedocumented in this encounter Care Teams Contact Lens Flashing Puncher Relationship Specialty Start Date End Date Roberto Carlos Coleman MD PCP - General Family Medicine 04/19/20 10/26/22 [place] [facility] [address] [place] [address] PCP - General Family Medicine 10/27/22 documented as of this encounter
--- OUTSIDE RECORDS SUMMARY | 2024-12-29 15:41 | XMS_ITS | Encounter Summary ---
Author Organization [employer] Address [address] [facility] 7t [place] [address] Care Team Providers Care Milling Machine Operator Name Role Phone [facility] Primary Care Provider [phone] Encounter Details Date Type Department Care Team (Late st Contact Info) Description 09/01/2023 Abstract [facility] MEDICINE 230 [place], [place] [phone] [place] [facility] 230 [place] [address] Social History Tobacco Use Types Packs/Day Years [...] documented as of this encounter Care Teams Milling Machine Operator Relationship Specialty Start Date End Date Krysta Lockett FNP [address] [place] [address] PCP - General Family Medicine 10/27/22 documented as of this encounter
--- OUTSIDE RECORDS SUMMARY | 2024-12-29 15:41 | XMS_ITS | Clinical Summary ---
Author Organization [employer] Address [address] [place] [address] 7t [place] [address] Care Team Providers Care Manganese Wheeler Name Role Phone Krysta Lockett RELISH BLENDER Primary Care Provider [phone] Allergies Active Allergy Reactions Criticality Noted Date Comments Aspirin Itching 11/13/2010 Other reaction(s): Itching Nsaids 07/10/2021 Other reaction(s): Other (see comments) Penicillins Itching 11/13/2010 Other reaction(s): Itching Medications traMADol (Ultram) 50 MG tablet TAKE 1 TABLET BY MOUTH EVERY TWELVE HOURS 3 Active Spiriva HandiHaler 18 MCG inhalation capsuleIndication s:Chronic obstructive pulmonary disease, unspecified COPD type (CMS/HCC) USE 1 CAPSULE FOR INHALATION ONCE A DAY DO NOT SWALLOW CAPSULE 30 capsule 11 3 Active midodrine (Proamatine) 2.5 MG tabletIndications :Orthostatic hypotension TAKE 1 TABLET BY MOUTH TWICE DAILY IN THE MORNING AND AT BEDTIME 60 tablet 3 4 Active gabapentin (Neurontin) 100 MG capsuleIndication s:Pain TAKE 1 CAPSULE BY MOUTH AT BEDTIME 30 capsule 3 4 Active ascorbic acid (Vitamin C) 250 MG chewable tabletIndications :Seasonal allergies TAKE 1 TABLET BY MOUTH EVERY MORNING WITH IRON (CHEW) 90 tablet 1 4 Active loratadine (Claritin) 10 MG tabletIndications :Seasonal allergies TAKE 1 TABLET BY MOUTH EVERY DAY 90 tablet 1 4 Active FeroSul 325 (65 Fe) MG tabletIndications :Anemia of chronic disease TAKE 1 TABLET BY MOUTH EVERY MORNING 90 tablet 1 4 Active fluticasone (Flonase) 50 MCG/ACT nasal sprayIndications: Seasonal allergies USE 2 SPRAYS IN EACH NOSTRIL EVERY DAY 48 g 1 4 Active Fluticasone-Salme terol 100-50 MCG/ACT aerosol powderIndications :Chronic obstructive pulmonary disease, unspecified COPD type ([facility]) INHALE 1 PUFF TWICE DAILY. RINSE MOUTH AFTER USING. 60 each 11 4 Active glucose 4 g chewable tabletIndications :Type 2 diabetes mellitus with hypoglycemia without coma, without long-term current use of insulin ([facility]) Chew 4 tablets (16 g) if needed for low blood sugar. 50 tablet 12 4 06/28/20 25 Active Diclofenac Sodium 1 % gelIndications:Ot her chronic pain Apply topically to affected areas twice daily 150 g 1 4 Active Continuous Glucose Sensor (FreeStyle Iglesia 2 Sensor) miscIndications:T ype 2 diabetes mellitus with hypoglycemia without coma, without long-term current use of insulin ([facility]) Apply 1 sensor every 14 days 2 each 2 4 Active Continuous Glucose Marking Room Supervisor (FreeStyle Iglesia 2 Pandora) deviceIndications :Type 2 diabetes mellitus with hypoglycemia without coma, without long-term current use of insulin ([facility]) Scan sensor every 8 hours 1 each 4 Active folic acid (Folvite) 1 MG tabletIndications :Stage 3a chronic kidney disease ([facility]) TAKE 1 TABLET BY MOUTH EVERY MORNING 90 tablet 1 4 Active acetaminophen (Tylenol Extra Strength) 500 MG tabletIndications :Chronic left shoulder pain Take 2 tablets (1,000 mg) by mouth every 6 (six) hours if needed for moderate pain. 30 tablet 1 4 08/09/20 25 Active lidocaine (Lidoderm) 5 % patchIndications: Chronic left shoulder pain Apply topically to affected areas. Leave on for up to 12 hours 30 patch 1 4 Active omeprazole (PriLOSEC) [address] capsuleIndication s:Dyspepsia TAKE 1 CAPSULE BY MOUTH EVERY MORNING BEFORE A MEAL 90 capsule 1 4 Active traZODone (Desyrel) 100 MG tablet TAKE 1 TABLET BY MOUTH AT BEDTIME 30 tablet 5 4 Active Eliquis 5 MG tabletIndications :Acute deep vein thrombosis (DVT) of other vein of lower extremity, unspecified laterality (CMS/HCC) TAKE 1 TABLET BY MOUTH TWICE DAILY ONCE EVERY MORNING AND ONCE EVERY NIGHT AT BEDTIME 60 tablet 3 5 Active Active Problems Problem Noted Date Diagnosed [...] no improvement -gave today to pt # [id number] of his vascular office to call and reschedule apt --I called today as well Dr Beckham's office and left my phone number for a call back from vascular -referred to cards to r/o cardiac etiology -tylenol prn x pain in legs -raise legs -continue use of pneumatic compression -alarm signs and symptoms explained Venous insufficiency 12/23/2022 Overview (12/23/2022): ?? Followed by [facility] vascular ?? Negative LE ultrasound 11/2022 Assessment [...] thrombosis) 12/15/2022 Overview (12/23/2022): ?? Followed by [facility] Dr. 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 Started on [...] NSR no ischemic findings -referred today to seamless tube mill operator x complete eval of echocardiogram x orthopnea [...] associated wi th type 2 diabetes mellitus ([facility]) 07/28/2017 Osteoarthritis of knee 07/28/2017 Resolved Problems Problem Noted Date Diagnosed Date Resolved Date Noncompliance with treatment 07/28/2017 12/23/2022 Seasonal allergic rhinitis 07/28/2017 0 12/23/2022 Uncontrolled type 2 diabetes mellitus 12/13/2015 12/23/2022 Encounters Date Type Department Care Team Description 11/23/2024 Refill [facility] MEDICINE 230 [place], [place] [phone] [facility] Acute deep vein thrombosis (DVT) of other vein of lower extremity, unspecified laterality ([facility]) from Last 3 Months Immunizations Name Administration [...] is your housing situation today? I have zoilabatool parker 08/26/[address] you [...] 04/26/2023, 02/0 05/2023, 12/26/2021, Additional history exists Diabetes: Hemoglobin A1C 09/28/20242 024, 12/08/2023, 04/26/2023, Additional history exists SDOH Screening 12/08/2024 12/08/2023 Diabetes: Urine Protein Screening 03/13/2025 03/13/2024, 12/08/2023, [...] coma, without long-term current use of insulin ([facility]) PROTEIN CREATININE RATIO, URINE Routine 03/13/2024 9:57 [...] Media Lot # [id number] Lot# Expiration Date ,594,[id number] Blood 06/28/2024 10:4 3 AM EDT [facility] RELISH BLENDER POINT OF CARE TEST ENTER/EDIT ORDERABLES Final Result * (ABNORMAL) Protein Creatinine Ratio, Urine (03/13/2024 9:57 AM EDT) Creatinine, Urine 97.69 mg/dL [facility] Protein, Total, Random Urine 14(H) <12 mg/dL [facility] Protein/Creatin ine Ratio, Ur 0.14 <0.2 [facility] Comment:The spot urine prote in:creatinine ratio may increase to 0.3during normal . 03/13/2024 9:57 AM EDT 03/13/2024 11:31 AM EDT Generic External Data Provider LAB URINE ORDERAB LES Final Result [facility] [address] [place] [phone] * Lipid Panel, Standard (04/26/2023 10:00 AM EDT) Triglycerides 46 mg/dL [facility] Comment:Desirable Triglyceri de: less than 150 mg/dLBorderline High Triglyceride 150-199 mg/dLHigh Triglyceride: 200-499 mg/dLVery High Triglyceride: greater than or equal to 5OO mg/dL Cholesterol 148 mg/dL [facility] Comment:Desirable Cholestero l: less than 200 mg/dLBorderline High Cholesterol: 200-239 mg/dLHigh Cholesterol: greater than 239 mg/dL LDL Cholesterol Calculated 82 mg/dl [facility] Comment:Desirable LDL: less than 100 mg/dLNear Optimal/Above Optimal LDL: 110- 129 mg/dLBorderline High LDL: 130-159 mg/dLHigh LDL: 160-189 mg/dLVery High LDL: greater than or equal to 190 mg/dL HDL Cholesterol 57 mg/dL [facility] Comment:Desirable HDL: great er than 40 mg/dL Note: This HDL assay may give artificially low results in patients with liver disease. 04/26/2023 10:0 0 AM EDT 04/26/2023 10:00 AM EDT [facility] External Provider LAB BLO OD ORDERABLES Final Result [facility] [address] [place] [address] [phone] * Hepatitis C Antibody with Reflex to HCV, RNA, Quantitative, Real-Time PCR (12/15/2022 9:44 AM EST) Hepatitis C Antibody NON-REACT SIDDHARTH NON-REACT SIDDHARTH [facility] Index <0.02 <1.00 [facility] Comment: HCV antibody was non-reactive. There is no laboratory evidence of HCV infection. In most cases, no further action is required. However, if recent HCV exposure is suspected, a test for HCV RNA (test code 51456) is suggested. For additional information please refer to http://education.[employer]/faq/ZNQ45p0 (This link is being provided for informational/ educational purposes only.) Blood Venous blood specimen / Unknown 12/15/2022 9:44 AM EST 12/15/2022 9:45 AM EST Narrative [facility] - 12/16/2022 2:26 PM EST FASTING:UNKNOWN FASTING: UNKNOWN [facility] RELISH BLENDER LAB BLOOD ORDERABLES Final Re sult [facility] [address] [place] [address] [facility] [address], ([address]) [place] [address] * Hm Colonoscopy (07/18/2019 7:44 AM EDT) us Historical Provider MD HEALTH MAINTENANCE Final Result from Last 3 Months or Most Recently Relevant to Health Maintenance Insurance [facility] Care Teams Manganese Wheeler Relationship Specialty Start Date End Date Krysta Lockett FNP [address] [place] [id number] PCP - General Family Medicine 10/27/22
--- OUTSIDE RECORDS SUMMARY | 2024-12-29 15:41 | XMS_ITS | Clinical Summary ---
Author Organization [employer] [facility] ity Address [address] [place] [address] Care Team Providers Care Management Consulting Name Role Phone Unavailable Primary Care Provider Unavailabl e Social History Tobacco Use Types Packs/Day Years Used Date Smoking Tobacco: Never Assessed Sex and Gender Information Value Date Recorded Sex Assigned at Not on file Legal Sex Male 4:47 AM EST Gender Identity Not on file Sexual Orientation Not on file Plan of Treatment Health Maintenance Due Date Last Done Comments DTaP,Tdap,and Td Vaccines (1 - Tdap) 1975 Pneumococcal Vaccine: 50+ Ye ars (1 of 1 - PCV) 2006 Zoster Vaccines (1 of 2) 2006 Abdominal Aortic Aneurysm (A AA) Screen 10/11/2022 Cholesterol Screening (Lipid Panel) 10/11/2022 Colorectal Cancer Screening: Colonoscopy 10/11/2022 Depression Screening 10/11/2022 Falls Risk Assessment 10/11/2022 Hepatitis C Screening 10/11/2022 Social Influencers of Health Screening 10/11/2022 COVID-19 Vaccine ( - 2023-2 5 season) 2024 Influenza Vaccine [...] patient's age to complete this topic Meningococcal B Vacine Aged Out No lo nger eligible based on patient's age to complete this topic RSV Immunization Patients Un sally 20 months Aged Out No longer eligible b ased on patient's age to complete this topic Varicella Vaccines Aged Out No longer eligible based on patient's age to complete this topic
--- OUTSIDE RECORDS SUMMARY | 2024-12-29 15:41 | XMS_ITS | Encounter Summary ---
Author Organization [employer] Address [address] [facility] 7[address] [place] [address] Care Team Providers Care Retail And Restaurant Associate Name Role Phone Krysta Lockett CARPENTER MATE Primary Care Provider [phone] Reason for Visit * Reason Comments Med Refill Encounter Details Date Type Department Care Team (Late st Contact Info) Description 11/24/2022 Refill [facility] MEDICINE [address] [place], [place] [phone] Chey Multani MD [address] [place] [address] Social History Tobacco Use Types Packs/Day Years [...] rx for persistent orthostatic hypotension. T/C to [facility] pharmacy. Zeinab states that pt has been getting med boxes regularly and is due for med box delivery tomorrow. documented in this encounter Plan of Treatment Not on file documented as of this encounter Visit Diagnoses Not on filedocumented in this encounter Care Teams Retail And Restaurant Associate Relationship Specialty Start Date End Date Cathryn GLENNA Chaparro [address] [place] [address] PCP - General Family Medicine 10/27/22 documented as of this encounter
--- OUTSIDE RECORDS SUMMARY | 2024-12-29 15:41 | XMS_ITS | Encounter Summary ---
Author Organization [employer] Address [address] [facility] 7[address] [place] [address] Care Team Providers Care Lead Systems Architect Name Role Phone Krysta Lockett FISCAL ACCOUNTING CLERK Primary Care Provider [phone] Encounter Details Date Type Department Care Team (Late st Contact Info) Description 09/24/2023 Abstract [facility] MEDICINE [address] [place], [place] [phone] Richa Rehman Social History Tobacco Use Types [...] documented as of this encounter Care Teams Lead Systems Architect Relationship Specialty Start Date End Date Krysta Lockett FNP [address] [place] [id number] PCP - General Family Medicine 10/27/22 documented as of this encounter
== END 2024-12-29 15:39 | disposition home or self-care (01) ==
LOC: HO.CT 15:38
PROVIDERS: PCP Registered Nurse; Visit Provider Hospitalist
DX: R91.8 Other nonspecific abnormal finding of lung field (principal)
CPT/HCPCS: 71250

== ENCOUNTER → 2024-12-29 15:40 | Outpatient (BNV) | payer OTHER, SELFPAY | PROVIDERS: PCP Registered Nurse; Visit Provider Radiology Vascular & Interventional Radiology | DX: R91.8 Other nonspecific abnormal finding of lung field (principal) | CPT/HCPCS: 71250 ==

== ENCOUNTER 2025-01-30 11:12 | Outpatient (AMB) | payer OTHER, SELFPAY ==
--- NOTE | 2025-01-30 11:22 | A.OFFVIS_ITS ---
Vital Signs 01/30/25 11:23 Height 5 ft 10 in Weight 196 lb 3.382 oz BMI 28.2 BP 132/60 Blood Pressure Location Lt brachial Position Sitting Pulse 69 Pulse Source Pulse Oximeter Pulse Oximetry (%) 99 Oxygen Delivery Method Room Air Intake Visit Reasons: COPD Allergies aspirin [Aspirin] Allergy (Mild, Verified 12/13/24 11:30) SWELLING Penicillins Allergy (Mild, Verified 12/13/24 11:30) SWELLING HPI Comments Details: The patient is a 69 y/o man with a h/o COPD and pulmonary emboli currently on Eliquis. The patient was evaluated by in 09/2022 at the [facility] when he was noted to the a DVT and a CTA with +PE. The patient has been on Eliquis. BAck in November 2022, the patient was evaluated with respiratory complaints and treated for pneumonia. Now the patient is feeling better. Does use his Advair and Spiriva. He also has a nebulizer. He does complain of mild dyspnea on exertion. Denies any chest pains, has intermittent cough. I do think that we need to simply his regimen some because all the inhalers has made it difficult for him to know which ones to use. He does continue to tolerate the Eliquis. At this point it appears that he has unprovoked PE and therefore has a higher risk for recurrent clots in the future. If his PFTs are abnormal, then we will request additional imaging studies to assess the clots. 07/05/2023 the patient is here for a pulmonary follow-up visit. He continues on the Eliquis twice a day. He is tolerating the medicine well without any evidence of any bleeding. He denies any significant shortness of breath. He did switch over to the Trelegy inhaler and has been affecting beneficial. He does have a rescue inhaler he has not required. The patient did have PFTs. Appears that his PFTs are significantly abnormal with a moderate restrictive process. Also has a diffusion impairment. Will I did review his last CT scan of the chest that was done back in September 2022 and demonstrates some nodularity on the right hemithorax close to the periphery of the right lung at the base. Based on his unprovoked clots significant weight loss and abnormal PFTs will request a repeat CT scan to assess those nodular densities noted on my review of the CT scan. I spoke to the patient and his daughter they agree with plan will plan to repeat the CT scan September 2023 will follow-up in October. The patient develops any worsening symptoms prior to that he will call the office. In the meantime will continue the Eliquis 5 mg twice a day. If all is well then we will consider decreasing the Eliquis to 2.5 twice a day. 10/18/2023 the patient is here for pulmonary follow-up visit. Overall the patient has been doing well from a respiratory status. He continues to tolerate the Trelegy well. He also continues to stay active walking. He recently went on a trip to [place]. He tolerated well. Still has significant lower extremity edema when he came back from [place] his legs were worse. He does have a device to help him with the lower extremity edema in the home. They are getting better already. He has been on the Eliquis 5 mg twice a day for the blood clots. We did talk about considering decreasing the dose 2.2 0.5 twice a day. However, he is not having any adverse effects to the 5 mg dose plus he has significant lower extremity edema with stagnant blood flow increasing her risk for blood clots. Therefore will continue with the 5 mg twice a day as lung scan tolerated. We did review his CT scan of the chest. He has a small 2 mm pulmonary nodule that will require follow-up in a year's time. In addition to that no clear explanation for the patient's restrictive lung disease noted on PFT. Possibly abnormal muscular component. 05/02/2024 the patient is here for a pulmonary follow-up visit. Overall the patient has been doing well. Does complain some dyspnea on exertion [id number] severity. He responded well to the Trelegy but then stopped it because he said that he had no further refills. Will go ahead and some again to the pharmacy. He has not had to use his rescue inhaler either. The patient continues on the Eliquis with good effect. Continues use it twice a day. The patient did have a CT scan of the chest back in 09/27/2023 demonstrating subcentimeter pulmonary nodules. The patient does need a repeat CT scan at this time. Will plan to repeat the CT scan in November when he comes back from his trip and will go ahead and review the results when he follows up in the spring. If he has any worsening symptoms he will call for an earlier assessment. 01/30/2025 the patient is here for a pulmonary follow-up visit. Overall the patient has been doing well. He has responded well to the Trelegy. Denies any significant dyspnea on exertion. Has not had to use his rescue inhaler. Typically less than 2 times a week. He continues on the Eliquis. The Eliquis therapy has been affecting beneficial. He denies any minor major bleeding. We also have been following closely his pulmonary nodules. We did have a repeat CT scan of the chest which was compared to his previous from 2022. No significant changes in the pulmonary nodule sharing. At this point hold off on any additional imaging studies. Will follow-up in a year's time if he has any issues prior to that he will call for an earlier assessment. [facility] Medical History Chronic restrictive lung disease Pulmonary nodules COVID-19 vaccine series completed Arthritis Asthma Vitamin D deficiency HLD (hyperlipidemia) T2DM (type 2 diabetes mellitus) Anxiety Depression Venous insufficiency Hypertension COPD (chronic obstructive pulmonary disease) Surgical History History of repair of hiatal hernia Status post laparoscopic sleeve gastrectomy History of esophagogastroduodenoscopy (EGD) History of umbilical hernia repair H/O colonoscopy with polypectomy Family History Father CVD (cardiovascular disease) Heart disease Mother Heart disease CVD (cardiovascular disease) Brother Cancer Brother Cancer Brother Heart attack Sister CVD (cardiovascular disease) Diabetes mellitus Hypertension Arthritis Social History Are you a primary child care associate teacher to a significant other at home: No Do you presently have visiting nurse or other home services: Yes (PROPERTY 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-daughter) Alcohol intake: never Comment: no facial grimacing, medicated in pacu numerous times, pain scale explained Patient Tobacco Use Status: Former Tobacco user Tobacco use type: Cigarette Advance Directives Date on File: 06/27/21 service: No Current occupational status: unemployed Review of Systems Const Denies fatigue, Denies fever(s) and Reports weight loss ENT Reports no additional complaints Card Denies chest pain, Denies chest pain at rest and Denies chest pain with activity Resp Denies chest congestion, Reports cough and Denies wheezing GI Reports no additional complaints Musc Details: pain over varicosities, aching of lower extremities, swelling, cramping, heaviness and tiredness, itching Denies abnormal gait Skin/Breast Reports pruritus and Denies wounds Neuro Reports no additional complaints and Denies abnormal gait Psych Denies no additional complaints Endo Denies fatigue Russell/Lymph Denies easy bleeding, Denies easy bruising and Denies lymphadenopathy Aller/Immun Denies wheezing Physical Exam Vital Signs: Last Vital Signs Pulse 69 01/30/25 11:23 BP 132/60 01/30/25 11:23 Pulse Ox 99 01/30/25 11:23 Oxygen Delivery Method Room Air 01/30/25 11:23 BMI result Body Mass Index 28.2 Const General: cooperative, healthy appearing and comfortable Orientation/consciousness: oriented to person, oriented to place and oriented to time HEENT Head: Yes normocephalic Neck Neck: Yes supple Carotids: no bruits Chest Chest palpation & inspection: normal inspection of the chest Resp Effort & Inspection: normal respiratory effort Auscultation: clear to auscultation bilaterally Cardio Rate: regular rate Heart sounds: S1 normal heart sound present and S2 normal heart sound present Peripheral pulses: Peripheral pulses 2+ throughout GI Inspection: Yes normal to inspection Skin General skin exam: dry skin Neuro General: oriented to person, oriented to place and oriented to time Extrem General: No clubbing, No cyanosis and Yes edema Right lower extremity: full ROM, normal capillary refill and edema Left lower extremity: full ROM, normal capillary refill and edema Psych Mental Status: mental status grossly normal Assessment & Plan Assessment & Plan (1) COPD (chronic obstructive pulmonary disease): Comment: stable with inhalers Code(s): J44.9 - Chronic obstructive pulmonary disease, unspecified Category: Medical Qualifiers: COPD type: chronic bronchitis Chronic bronchitis type: simple Qualified Code(s): J41.0 - Simple chronic bronchitis (2) Pulmonary embolism: Comment: unprovoked event. Lifelong anticoagulation is recommended. If he decides to stop the Eliquis after 6 months, then should have a ddimer checked after 4 weeks. After a year of anticoagulation (09/2023) he can also consider half dose Eliquis 2.5mg BID, but with LE edema will continue full dose Code(s): I26.99 - Other pulmonary embolism without acute cor pulmonale Category: Medical Qualifiers: Pulmonary embolism type: multiple subsegmental (without acute cor pulmonale) Qualified Code(s): I26.94 - Multiple subsegmental pulmonary emboli without acute cor pulmonale (3) Chronic restrictive lung disease: Code(s): J98.4 - Other disorders of lung Category: Medical (4) Pulmonary nodules: Code(s): R91.8 - Other nonspecific abnormal finding of lung field Category: Medical Plan continue Trelegy daily for better adherence ONIEL as needed continue Eliquis 5mg BID monitor for any abdominal pain related to his cholelithiasis F/U 12 months Coding Level of Care Code Est Pt Level 4 (99503) Diagnoses Simple chronic bronchitis J41.0 COPD type: chronic bronchitis Chronic bronchitis type: simple Multiple subsegmental pulmonary emboli without acute cor pulmonale I26.94 Pulmonary embolism type: multiple subsegmental (without acute cor pu lmonale) Chronic restrictive lung disease J98.4 Pulmonary nodules R91.8 Time Spent (min) 17
[2025-01-30 11:23] VITALS: BP 132/60; PULSE 69; O2SAT 99; BMI 28.2
--- OUTSIDE RECORDS SUMMARY | 2025-01-30 13:48 | XMS_ITS | Encounter Summary ---
Author Organization [employer] Address [address] [facility] 7t [place] [address] Care Team Providers Care Special Effects Specialist Name Role Phone Krysta Lockett MEDICAL TECHNICAL WRITER Primary Care Provider [phone] Encounter Details Date Type Department Care Team (Late st Contact Info) Description 01/19/2025 3:30 PM EDT Office Visit [facility] MEDICINE [address] [place], [place] [phone] Kadie Salazar NP [address] [place], [place] [phone] Elevated blood pressure reading (Primary Dx); Type 2 diabetes mellitus with hypoglycemia without coma, without long-term current use of insulin ([facility]); Dietary counseling; Exercise counseling Social History Tobacco Use Types Packs/Day Years [...] AM EDT documented as of this encounter Last Filed Vital Signs Vital Sign Reading Time Taken Comments Blood Pressure 160/82 01/19/2025 3:53 PM EDT Pulse 75 01/19/2025 3:53 PM EDT Temperature 36.2 ??C (97.1 ??F) 01/19/2025 3:53 PM ED T Respiratory Rate 17 01/19/2025 3:53 PM EDT Oxygen Saturation 99% 01/19/2025 3:53 PM EDT Inhaled Oxygen Concentration - - Weight 88.7 kg (195 lb 9.6 oz) 01/19/2025 3:53 P M EDT Height - - Body Mass Index 28.07 08/09/2024 9:13 AM EDT documented in this encounter Plan of Treatment Upcoming Encounters Date Type Department Care Team (Late st Contact Info) Description 02/28/2025 10:15 AM EDT Office Visit [facility] MEDICINE [address] [place] [address] [facility] [address] [place] [address] documented as of this encounter Procedures Procedure Name Priority Date/Time Associated Diagnosis Comments POCT GLYCATED HEMOGLOBIN, TOTAL Routine 01/19/2025 4:25 PM EDT Type 2 diabetes mellitus with hypoglycemia without coma, without long-term current use of insulin ([facility]) POCT GLUCOSE Routine 01/19/2025 3:54 PM EDT Type 2 diabetes mellitus with hypoglycemia without coma, without long-term current use of insulin ([facility]) documented in this encounter Results * POCT HGB A1C (01/19/2025 4:25 PM EDT) Hemoglobin A1C 6.0 4.0 - 6.0 % QC Media Lot # [id number] Lot# Expiration Date [id number] Blood 01/19/2025 4:25 PM EDT Kadie Salazar CHIEF OF PEDIATRIC UROLOGY POINT OF CARE TEST ENTER/EDIT OR DERABLES Final Result * (ABNORMAL) POCT glucose manually resulted (01/19/2025 3:54 PM EDT) Glucose Blood, POC 262(A) 60 - 200 mg/dL QC Media Lot # [id number] Lot# Expiration Date Blood Capillary blood specimen / Unknown 01/19/2025 3:54 PM EDT Kadie Salazar CHIEF OF PEDIATRIC UROLOGY POINT OF CARE TEST ENTER/EDIT OR DERABLES Final Result documented in this encounter Visit Diagnoses Diagnosis Elevated blood pressure reading- Primary Elevated blood pressure reading without diagnosis of hypertension Type 2 diabetes mellitus with hypoglycemia without coma, without long-term current use of insulin ([facility]) Dietary counseling Dietary surveillance and counseling Exercise counseling documented in this encounter Additional Health Concerns Assessment Noted Time PHQ-9 Depression Total Score: 0 08/09/20 24 9:14 AM EDT documented as of this encounter Care Teams Special Effects Specialist Relationship Specialty Start Date End Date Krysta Lockett FNP [address] [place] [address] PCP - General Family Medicine 10/27/22 documented as of this encounter
--- OUTSIDE RECORDS SUMMARY | 2025-01-30 13:48 | XMS_ITS | Encounter Summary ---
Author Organization [employer] Address [address] [facility] [address] [place] [address] Care Team Providers Care Manager It Training Name Role Phone Krysta Lockett PROPULSION MACHINERY SERVICE ENGINEER Primary Care Provider [phone] Encounter Details Date Type Department Care Team (Late st Contact Info) Description 09/24/2023 Abstract [facility] MEDICINE [address] [place], [place] [phone] Richa Rehman Social History Tobacco Use Types [...] as of this encounter Plan of Treatment Upcoming Encounters Date Type Department Care Team (Late st Contact Info) Description 02/28/2025 10:15 AM EDT Office Visit [facility] MEDICINE [address] [place] [address] Krysta Lockett FNP [address] [place] [address] documented as of this encounter Visit Diagnoses Not on filedocumented in this encounter Additional Health Concerns Assessment Noted Time PHQ-9 Depression Total Score: 0 12/21/19 23 10:22 AM EST documented as of this encounter Care Teams Manager It Training Relationship Specialty Start Date End Date Krysta Lockett FNP [address] [place] [address] PCP - General Family Medicine 10/27/22 documented as of this encounter
--- OUTSIDE RECORDS SUMMARY | 2025-01-30 13:48 | XMS_ITS | Clinical Summary ---
Author Organization [employer] Address [address] [place] [address] 7[address] [place] [address] Care Team Providers Care Machine Printer Hose Name Role Phone Krysta Lockett MECHANICAL DRAWING TEACHER Primary Care Provider [phone] Allergies Active Allergy Reactions Criticality Noted Date [...] s:Chronic obstructive pulmonary disease, unspecified COPD type ([facility]) INHALE 1 PUFF TWICE DAILY. RINSE MOUTH AFTER USING. 60 each 11 01/28/20 24 Active glucose 4 g chewable tabletIndication s:Type 2 diabetes mellitus with hypoglycemia without coma, without long-term current use of insulin ([facility]) Chew 4 tablets (16 g) if needed for low blood sugar. 50 tablet 12 06/28/20 24 025 Active Diclofenac Sodium 1 % gelIndications:O ther chronic pain Apply topically to affected areas twice daily 150 g 1 06/28/20 24 Active Continuous Glucose Sensor (FreeStyle Iglesia 2 Sensor) miscIndications: Type 2 diabetes mellitus with hypoglycemia without coma, without long-term current use of insulin ([facility]) Apply 1 sensor every 14 days 2 each 2 06/30/20 24 Active Continuous Glucose Bicycle Repairman (FreeStyle Iglesia 2 [place]) deviceIndication s:Type 2 diabetes mellitus with hypoglycemia without coma, without long-term current use of insulin ([facility]) Scan sensor every 8 hours 1 each 06/30/20 24 Active folic acid (Folvite) 1 MG tabletIndication s:Stage 3a chronic kidney disease ([facility]) TAKE 1 TABLET BY MOUTH EVERY MORNING [...] BEDTIME 60 tablet 3 11/24/19 25 Active Blood Pressure kitIndications:E levated blood pressure reading 1 kit 1 (one) time per week. 1 kit 01/20/20 25 Active Zepbound 2.5 MG/0.5ML solution auto-injectorInd ications:Type 2 diabetes mellitus with hypoglycemia without coma, without long-term current use of insulin ([facility]) Inject 0.5 mL (2.5 mg) under the skin 1 (one) time per week for 28 days. 2 mL 01/23/20 25 025 Active Tirzepatide-Weig ht Management (Zepbound) 2.5 MG/0.5ML solution auto-injectorInd ications:Type 2 diabetes mellitus with hypoglycemia without coma, without long-term current use of insulin ([facility]) Inject 0.5 mL (2.5 mg) under the skin 1 (one) time per week for 28 days. 2 mL 01/20/20 25 025 Discontinued Active Problems Problem Noted Date [...] no improvement -gave today to pt # [phone] of his vascular office to call and reschedule apt --I called today as well Dr Beckham's office and left my phone number for a call back from vascular -referred to cards to r/o cardiac etiology -tylenol prn x pain in legs -raise legs -continue use of pneumatic compression -alarm signs and symptoms explained Venous insufficiency 12/23/2022 Overview (12/23/2022): ?? Followed by [facility] vascular ?? Negative LE [...] thrombosis) 12/15/2022 Overview (12/23/2022): ?? Followed by [facility] Dr. Beckham; 09/22/2022-dx with [...] NSR no ischemic findings -referred today to marine firer x complete eval of echocardiogram x orthopnea [...] ?? [facility] Assessment & Plan (12/17/2023 5:52 PM EST): [...] disease without esophagi tis 07/28/2017 Hyperlipidemia associated with type 2 diabetes m ellitus 07/28/2017 Osteoarthritis of knee 07/28/2017 Resolved Problems Problem Noted Date Diagnosed Date Resolved Date Noncompliance with treatment 07/28/2017 12/23/2022 Seasonal allergic rhinitis 07/28/2017 0 12/23/2022 Uncontrolled type 2 diabetes mellitus 12/13/2015 12/23/2022 Encounters Date Type Department Care Team Description 01/26/2025 Telephone [facility] MED & PEDS [address] [place], [place] [phone] [place], Krysta, MECHANICAL DRAWING TEACHER Zepbound PA 01/19/2025 3:30 PM EDT Office Visit [facility] MEDICINE [address] [place] [address] Kadie Salazar, SHAYE Elevated blood pressure reading (Primary Dx); Type 2 diabetes mellitus with hypoglycemia without coma, without long-term current use of insulin ([facility]); Dietary counseling; Exercise counseling 01/19/2025 Refill [facility] MEDICINE [address] [place] [address] Kadie Salazar NP Type 2 diabetes mellitus with hypoglycemia without coma, without long-term current use of insulin ([facility]) 01/19/2025 Travel 01/17/2025 Telephone [facility] MEDICINE [address] [place] [address] BurlingtonKrysta FNP Nurse Triage 12/29/2024 Orders Only [facility] External Provider, [facility] 11/23/2024 Refill [facility] MEDICINE [address] [place] [address] BurlingtonKrysta FNP Acute deep vein thrombosis (DVT) of other vein of lower extremity, unspecified laterality ([facility]) from Last 3 Months Immunizations Name Administration [...] your housing situation today? I have zoila keith 08/26/[address] you li [...] oz) 01/19/2025 3:53 P M EDT Height 177.8 cm (5' 10 ) 08/09/2024 9:13 AM EDT Body Mass Index 28.07 08/09/2024 9:13 AM EDT Plan of Treatment Upcoming Encounters Date Type Department Care Team (Late st Contact Info) Description 02/28/2025 10:15 AM EDT Office Visit [facility] MEDICINE [address] [place] [address] [employer], [facility] [address] [place] [address] Health Maintenance Due Date Last Done Comments [...] 03/13/2025 03/13/2024, 12/08/2023, 04/23/2021, Additional history exists Diabetes: Hemoglobin A1C 07/22/2025 025, 06/28/2024, 12/08/2023, Additional history exists Depression Screening 08/09/2025 08/09/2024, 08/09/20 24 Tobacco Screening 01/19/2026 01/19/2025 DTaP/Tdap/Td Vaccines (3 - Td or Tdap) [...] coma, without long-term current use of insulin ([facility]) POCT GLUCOSE Routine 01/19/2025 3:54 PM EDT Type 2 diabetes mellitus with hypoglycemia without coma, without long-term current use of insulin ([facility]/HCC) CT CHEST WO CONTRAST Routine 01/01/2025 12:44 PM EST PROTEIN CREATININE RATIO, URINE Routine 03/13/2024 9:57 AM EDT LIPID PANEL, STANDARD Routine 04/26/2023 10:00 AM EDT HEPATITIS C AB W/REFL TO HCV RNA, QN, PCR Routine 12/15/2022 9:44 AM EST Healthcare maintenance HM COLONOSCOPY Routine 07/18/2019 7:44 AM EDT from Last 3 Months or Most Recently Relevant to Health Maintenance Results * POCT HGB A1C (01/19/2025 4:25 PM EDT) Hemoglobin A1C 6.0 4.0 - 6.0 % QC Media Lot # [id number] Lot# Expiration Date [id number] Blood 01/19/2025 4:25 PM EDT Kadie Salazar HOSPITAL MONITOR POINT OF CARE TEST ENTER/EDIT OR DERABLES Final Result * (ABNORMAL) POCT glucose manually resulted (01/19/2025 3:54 PM EDT) Pathologist [facility] Glucose Blood, POC 262(A) 60 - 200 mg/dL QC Media Lot # [id number] Lot# Expiration Date ,792 Blood Capillary blood specimen / Unknown 01/19/2025 3:54 PM EDT Kadie Salazar HOSPITAL MONITOR POINT OF CARE TEST ENTER/EDIT OR DERABLES Final Result * CT Chest w/o Contrast (01/01/2025 12:44 PM EST) Anatomical Region Laterality Modality Body, Chest Computed Tomogra phy 01/01/2025 12:4 4 PM EST Narrative 01/01/2025 12:45 PM EST ? [facility] ?[address] ?[place] [address] ? CT Scan Report ? Signed ? Patient: Jaron Gay,Armando ?MR#: [id number] ?? [id number] ? : 1955 ?Acct:[id number] ? Age/Sex: 69 / M ?ADM Date: 02/21/25 ? Loc: HO.CT ? Attending Dr: Grabiel Roldan MD ? Ordering Physician: Grabiel Roldan MD ?? Date of Service: 12/29/24 ?? Procedure(s): CT chest wo IV con ?? Accession Number(s): [id number] ? cc: Grabiel Roldan MD; BurlingtonKrysta MECHANICAL DRAWING TEACHER ? Report Number: ?? [id number]: Total DLP = ??182.00 mGy-cm ? CLINICAL HISTORY: R91.8 - Other nonspecific abnormal finding of lung field ? CT chest without contrast ? Comparison: CT/DE/SR - CT CHEST WO IV CON - 09/08/23 10:25 EDT ? Findings: ? The heart is normal in size. ?? No mediastinal adenopathy or pericardial effusion. ?? Mild atherosclerotic disease of the aorta and coronary arteries. ?? No suspicious nodule. ?? Stable small focus of ground-glass density abutting the major fissure ?? within the posterior left upper lobe on axial 57. ?? Stable nodular thickening of the major fissure on the left, axial 81. ?? No effusion or pneumothorax. ?? Gynecomastia suggested. ?? Gallstones layer dependently within the gallbladder. ?? No acute osseous finding. ? Impression: ? Stable pulmonary findings. No suspicious nodule. ?? Cholelithiasis. ?? Gynecomastia. ? This document has been electronically signed by: Edson Dumont MD on ?? 01/01/2025 12:44:38 ? Dictated By: ?Edson Dumont MD ? Signed By: ?<Electronically signed by Edson Dumont MD in OV> ? 01/01/25 1245 ? DD/ 1244 ? TD/TT: 01/01/25 1244 ? Process Project Engineer: ? Procedure Note Lachelle, Peggy - 01/01/[address] [address] [address] Scan Report Signed Patient: Armando BaMR#: [id number] : 6Acct:[id number] Age/Sex: 69 / MADM Date: 12/29/24 Loc: HO.CT Attending Dr: Grabiel Roldan MD Ordering Physician: Grabiel Roldan MD Date of Service: 12/29/24 Procedure(s): CT chest wo IV con Accession Number(s): [id number] cc: Grabiel Roldan MD; BurlingtonKrysta [facility] Report Number: [id number]: Total DLP = 182.00 mGy-cm CLINICAL HISTORY: R91.8 - Other nonspecific abnormal finding of lung field CT chest without contrast Comparison: CT/DE/SR - CT CHEST WO IV CON - 09/08/23 10:25 EDT Findings: The heart is normal in size. No mediastinal adenopathy or pericardial effusion. Mild atherosclerotic disease of the aorta and coronary arteries. No suspicious nodule. Stable small focus of ground-glass density abutting the major fissure within the posterior left upper lobe on axial 57. Stable nodular thickening of the major fissure on the left, axial 81. No effusion or pneumothorax. Gynecomastia suggested. Gallstones layer dependently within the gallbladder. No acute osseous finding. Impression: Stable pulmonary findings. No suspicious nodule. Cholelithiasis. Gynecomastia. This document has been electronically signed by: Edson Dumont MD on 01/01/2025 12:44:38 Dictated By: Edson Dumont MD Signed By: <Electronically signed by Edson Dumont MD in OV> 01/01/25 1245 DD/ 1244 TD/TT: 01/01/25 1244 Process Project Engineer: [facility] External Provider IMG CT PROCEDURES Final Result * (ABNORMAL) Protein Creatinine Ratio, Urine (03/13/2024 9:57 AM EDT) Creatinine, Urine 97.69 mg/dL [facility] Protein, Total, Random Urine 14(H) <12 mg/dL [facility] Protein/Creatin ine Ratio, Ur 0.14 <0.2 [facility] Comment:The spot urine prote in:creatinine ratio may increase to 0.3during normal . 03/13/2024 9:57 AM EDT 03/13/2024 11:31 AM EDT Generic External Data Provider LAB URINE ORDERAB LES Final Result [facility] [address] [place] [phone] * Lipid Panel, Standard (04/26/2023 10:00 AM EDT) Triglycerides 46 mg/dL [facility] Comment:Desirable Triglyceri de: less than 150 mg/dLBorderline High Triglyceride 150-199 mg/dLHigh Triglyceride: 200-499 mg/dLVery High Triglyceride: greater than or equal to 5OO mg/dL Cholesterol 148 mg/dL [facility] Comment:Desirable Cholestero l: less than 200 mg/dLBorderline High Cholesterol: 200-239 mg/dLHigh Cholesterol: greater than 239 mg/dL LDL Cholesterol Calculated 82 mg/dl [facility] Comment:Desirable LDL: less than 100 mg/dLNear Optimal/Above Optimal LDL: 110- 129 mg/dLBorderline High LDL: 130-159 mg/dLHigh LDL: 160-189 mg/dLVery High LDL: greater than or equal to 190 mg/dL HDL Cholesterol 57 mg/dL [facility] Comment:Desirable HDL: great er than 40 mg/dL Note: This HDL assay may give artificially low results in patients with liver disease. 04/26/2023 10:0 0 AM EDT 04/26/2023 10:00 AM EDT us [facility] External Provider LAB BLO OD ORDERABLES Final Result [facility] [address] [place] [address] [phone] * Hepatitis C Antibody with Reflex to HCV, RNA, Quantitative, Real-Time PCR (12/15/2022 9:44 AM EST) Hepatitis C Antibody NON-REACT SIDDHARTH NON-REACT SIDDHARTH [employer] Index <0.02 <1.00 [employer] Comment: HCV antibody was non-reactive. There is no laboratory evidence of HCV infection. In most cases, no further action is required. However, if recent HCV exposure is suspected, a test for HCV RNA (test code 02725) is suggested. For additional information please refer to http://education.[employer]/faq/WBF05p5 (This link is being provided for informational/ educational purposes only.) Blood Venous blood specimen / Unknown 12/15/2022 9:44 AM EST 12/15/2022 9:45 AM EST Narrative [facility] - 12/16/2022 2:26 PM EST FASTING:UNKNOWN FASTING: UNKNOWN [facility] MECHANICAL DRAWING TEACHER LAB BLOOD ORDERABLES Final Re sult [facility] [address] [facility] [place] [address] [facility] [address], ([address]) [place] [address] * Hm Colonoscopy (07/18/2019 7:44 AM EDT) Historical Provider HEALTH MAINTENANCE Final Result from Last 3 Months or Most Recently Relevant to Health Maintenance Insurance [facility] Care Teams Machine Printer Hose Relationship Specialty Start Date End Date BurlingtonKrysta, [facility] [address] [place] [address] PCP - General Family Medicine 10/27/22
--- OUTSIDE RECORDS SUMMARY | 2025-01-30 13:48 | XMS_ITS | Encounter Summary ---
Author Organization [employer] Address [address] [facility] 7t [place] [address] Care Team Providers Care Nonfarm Animal Caretaker Name Role Phone [facility] Primary Care Provider [phone] Encounter Details Date Type Department Care Team (Late st Contact Info) Description 09/01/2023 Abstract [facility] MEDICINE [address] [place], [place] [phone] [facility] [address] [place] [address] Social History Tobacco Use Types Packs/Day Years [...] Description 02/28/2025 10:15 AM EDT Office Visit [facility] MEDIC[facility] [address] [place] [address] Krysta Lockett FNP [address] [place] [address] documented as of this encounter Visit Diagnoses Not on filedocumented in this encounter Additional Health Concerns Assessment Noted Time PHQ-9 Depression Total Score: 0 12/21/19 10:22 AM EST documented as of this encounter Care Teams Nonfarm Animal Caretaker Relationship Specialty Start Date End Date Krysta Lockett FNP [address] [place] [address] PCP - General Family Medicine 10/27/22 documented as of this encounter
--- OUTSIDE RECORDS SUMMARY | 2025-01-30 13:48 | XMS_ITS | Encounter Summary ---
Author Organization [employer] Address [address] [facility] 7t [place] [address] Care Team Providers Care Missileman Name Role Phone Krysta Lockett FRAMING CARPENTER Primary Care Provider [phone] Reason for Visit * Reason Comments Med Refill Encounter Details Date Type Department Care Team (Late Contact Info) Description 11/24/2022 Refill [facility] MEDICINE [address] [place] [address] Chey Multani MD [address] [place] [address] Social History Tobacco Use Types Packs/Day Years [...] rx for persistent orthostatic hypotension. T/C to [facility] pharmacy. Zeinab states that pt has been getting med boxes regularly and is due for med box delivery tomorrow. documented in this encounter Plan of Treatment Upcoming Encounters Date Type Department Care Team (Late Contact Info) Description 02/28/2025 10:15 AM EDT Office Visit [facility] MEDICINE [address] [place] [address] Krysta Lockett FNP [address] [place] [address] documented as of this encounter Visit Diagnoses Not on filedocumented in this encounter Care Teams Missileman Relationship Specialty Start Date End Date Krysta Lockett FNP [address] [place] [address] PCP - General Family Medicine 10/27/22 documented as of this encounter
--- OUTSIDE RECORDS SUMMARY | 2025-01-30 13:48 | XMS_ITS | Encounter Summary ---
Author Organization [employer] Address [address] [facility] 7t [place] [address] Care Team Providers Care Drapery Seamstress Name Role Phone [facility] Primary Care Provider [phone] Reason for Visit * Reason Onset Date Comments Jasmin MARTINEZ 01/26/2025 Encounter Details Date Type Department Care Team ([facility] st Contact Info) Description 01/26/2025 Telephone [facility] MED & PEDS [address] [place], [place] [phone] [facility] [address] [facility] [place] [address] Jasmin MARTINEZ Social History Tobacco Use Types Packs/Day Years [...] encounter Miscellaneous Notes * Telephone Encounter - Kari Sosa RN - 01/26/2025 7:55 AM EDT Zepbound PA request received and sent through cover my meds. documented in this encounter Plan of Treatment Upcoming Encounters Date Type Department Care Team (Late st Contact Info) Description 02/28/2025 10:15 AM EDT Office Visit [facility] MEDICINE [address] [place] [address] Krysta Lockett FNP [address] [place] [address] documented as of this encounter Visit Diagnoses Not on filedocumented in this encounter Additional Health Concerns Assessment Noted Time PHQ-9 Depression Total Score: 0 08/09/20 24 9:14 AM EDT documented as of this encounter Care Teams Drapery Seamstress Relationship Specialty Start Date End Date Krysta Lockett FNP [address] [place] [address] PCP - General Family Medicine 10/27/22 documented as of this encounter
--- OUTSIDE RECORDS SUMMARY | 2025-01-30 13:48 | XMS_ITS | Encounter Summary ---
Author Organization [employer] Address [address] [facility] 7t [place] [address] Care Team Providers Care Assembler Production Line Name Role Phone [facility] Primary Care Provider [phone] Reason for Visit * Reason Comments Med Refill Encounter Details Date Type Department Care Team ([facility] st Contact Info) Description 11/01/2023 Refill [facility] MEDICINE [address] [place], [place] [phone] [facility] [address] [place] [address] Dyspepsia Social History Tobacco Use Types Packs/Day [...] Description 02/28/2025 10:15 AM EDT Office Visit [facility] MEDICINE [address] [place] [address] Krysta Lockett FNP [address] [place] [address] documented as of this encounter Visit Diagnoses Diagnosis Dyspepsia Dyspepsia and other specified disorders of function of stomach documented in this encounter Additional Health Concerns Assessment Noted Time PHQ-9 Depression Total Score: 0 12/21/19 23 10:22 AM EST documented as of this encounter Care Teams Assembler Production Line Relationship Specialty Start Date End Date Krysta Lockett FNP [address] [place] [address] PCP - General Family Medicine 10/27/22 documented as of this encounter
--- OUTSIDE RECORDS SUMMARY | 2025-01-30 13:48 | XMS_ITS | Encounter Summary ---
Author Organization [employer] Address [address] [facility] 7t [place] [address] Care Team Providers Care Road Driver Name Role Phone Krysta Lockett [facility]MIST Primary Care Provider [phone] Encounter Details Date Type Department Care Team (Latest Contact Info) Description 01/19/2025 Travel Social History Tobacco Use Types Packs/Day Years [...] 02/28/2025 10:15 AM EDT Office Visit [facility] MEDICINE [address] [place] [address] Krysta Lockett FNP [address] [place] [address] documented as of this encounter Visit Diagnoses Not on filedocumented in this encounter Additional Health Concerns Assessment Noted Time PHQ-9 Depression Total Score: 0 08/09/20 24 9:14 AM EDT documented as of this encounter Care Teams Road Driver Relationship Specialty Start Date End Date Krysta Lockett FNP [address] [place] [address] PCP - General Family Medicine 10/27/22 documented as of this encounter
--- OUTSIDE RECORDS SUMMARY | 2025-01-30 13:48 | XMS_ITS | Encounter Summary ---
Author Organization [employer] [facility] Address [address] [place] [address] 7t [place] [address] Care Team Providers Care Garment Manufacturing Supervisor Name Role Phone CathrynKrysta [facility] Primary Care Provider [phone] Encounter Details Date Type Department Care Team (Late st Contact Info) Description 11/18/2022 Orders Only [facility] MEDICINE [address] [place] [address] Amanda Haynes LPN Social History Tobacco Use [...] Description 02/28/2025 10:15 AM EDT Office Visit [facility] MEDICINE [address] [place] [address] Krysta Lockett [facility] [address] [place] [address] documented as of this encounter Visit Diagnoses Not on filedocumented in this encounter Care Teams Garment Manufacturing Supervisor Relationship Specialty Start Date End Date Krysta Lockett FNP [address] [place] [address] PCP - General Family Medicine 10/27/22 documented as of this encounter
--- OUTSIDE RECORDS SUMMARY | 2025-01-30 13:48 | XMS_ITS | Clinical Summary ---
Author Organization [employer] [facility] Address [address] [place] [address] Care Team Providers Care Construction Trench Digger Name Role Phone Unavailable Primary Care Provider [...]
--- OUTSIDE RECORDS SUMMARY | 2025-01-30 13:48 | XMS_ITS | Encounter Summary ---
Author Organization [employer] Address [address] [facility] 7t [place] [address] Care Team Providers Care Bus Repair Supervisor Name Role Phone Krysta Lockett FORENSIC PSYCHOLOGIST Primary Care Provider [phone] Reason for Visit * Reason Comments Med Change Request Encounter Details Date Type Department Care Team ([facility] st Contact Info) Description 01/19/2025 Refill [facility] MEDICINE [address] [place], [place] [phone] Kadie Salazar, SHAYE [address] [place] [address] Type 2 diabetes mellitus with hypoglycemia without coma, without long-term current use of insulin ([facility]) Social History Tobacco Use Types Packs/Day Years [...] Description 02/28/2025 10:15 AM EDT Office Visit [facility] MEDICINE [address] [place] [address] Krysta Lockett FNP [address] [place] [address] documented as of this encounter Visit Diagnoses Diagnosis Type 2 diabetes mellitus with hypoglycemia without coma, without long-term current use of insulin ([facility]) documented in this encounter Additional Health Concerns Assessment Noted Time PHQ-9 Depression Total Score: 0 08/09/20 24 9:14 AM EDT documented as of this encounter Care Teams Bus Repair Supervisor Relationship Specialty Start Date End Date Krysta Lockett FNP [address] [place] [address] PCP - General Family Medicine 10/27/22 documented as of this encounter
--- OUTSIDE RECORDS SUMMARY | 2025-01-30 13:48 | XMS_ITS | Encounter Summary ---
Author Organization [employer] Address [address] [place] [address] 7t [place] [address] Care Team Providers Care Mica Plate Layer Hand Name Role Phone Roberto Carlos Coleman MD Primary Care Provider Unava Krysta Sierra [facility] Primary Care Provider [phone] Encounter Details Date Type Department Care Team (Latest Contact Info) Description 12/01/2019 Abstract [facility] CONVERSIONS Dental, Provider, DDS Social History Tobacco [...] Description 02/28/2025 10:15 AM EDT Office Visit [facility] MEDICINE [address] [place] [address] Cros[place]rysta [facility] [address] [place] [address] documented as of this encounter Visit Diagnoses Not on filedocumented in this encounter Care Teams Mica Plate Layer Hand Relationship Specialty Start Date End Date Roberto Carlos Coleman MD PCP - General Family Medicine 04/19/20 10/26/22 Krysta Lockett FNP [address] [place] [address] PCP - General Family Medicine 10/27/22 documented as of this encounter
--- OUTSIDE RECORDS SUMMARY | 2025-01-30 13:48 | XMS_ITS | Encounter Summary ---
Author Organization [employer] Address [address] [facility] 7t [place] [address] Care Team Providers Care Garbage Worker Name Role Phone Krysta Lockett SINTER [employer]EDER Primary Care Provider [phone] Encounter Details Date Type Department Care Team ([facility] st Contact Info) Description 12/29/2024 Orders Only [facility] External Provider, [facility] Social History Tobacco Use Types Packs/Day Years [...] 10:15 AM EDT Office Visit [facility] MED[facility]INE [address] [facility] [place] [address] [place], [place], [facility] [address] [place] [address] documented as of this encounter Procedures Procedure Name Priority Date/Time Associated Diagnosis Comments CT CHEST WO CONTRAST Routine 01/01/2025 12:44 PM EST documented in this encounter Results * CT Chest w/o Contrast (01/01/2025 12:44 PM EST) Anatomical Region Laterality Modality Body, Chest Computed Tomogra phy 01/01/2025 12:4 4 PM EST Narrative 01/01/2025 12:45 PM EST ? [facility] ?[address] ?[place] [address] ? CT Scan Report ? Signed ? Patient: Armando Ba ?MR#: [id number] ?? [id number] ? : 1955 ?Acct:[id number] ? Age/Sex: 69 / M ?ADM Date: 12/29/24 ? Loc: HO.CT ? Attending Dr: Grabiel Roldan MD ? Ordering Physician: Grabiel Roldan MD ?? Date of Service: 12/29/24 ?? Procedure(s): CT chest wo IV con ?? Accession Number(s): [id number] ? cc: Grabiel Roldan MD; Krysta Lockett SINTER FEEDER ? Report Number: ?? [id number]: Total DLP = ??182.00 mGy-cm ? CLINICAL HISTORY: R91.8 - Other nonspecific abnormal finding of lung field ? CT chest without contrast ? Comparison: CT/KS/SR - CT CHEST WO IV CON - [...] DD/ 1244 ? TD/TT: 01/01/25 1244 ? Performance Improvement Director: ? Procedure Note Lachelle, Image - 01/01/[address] [place] [address] [address] Scan Report Signed Patient: Armando BaMR#: [id number] : 6Acct:[id number] Age/Sex: 69 / MADM Date: 12/29/24 Loc: HO.CT Attending Dr: Grabiel Roldan MD Ordering Physician: Grabiel Roldan MD Date of Service: 12/29/24 Procedure(s): CT chest wo IV con Accession Number(s): [id number] cc: Grabiel Roldan MD; [facility] Report Number: [id number]: Total DLP = 182.00 mGy-cm CLINICAL HISTORY: R91.8 - Other nonspecific abnormal finding of lung field CT chest without contrast Comparison: CT/KS/SR - CT CHEST WO IV CON - [...] 01/01/25 1245 DD/ 1244 TD/TT: 01/01/25 1244 Performance Improvement Director: [facility] External Provider IMG CT PROCEDURES Final Result documented in this encounter Visit Diagnoses Not on filedocumented in this encounter Additional Health Concerns Assessment Noted Time PHQ-9 Depression Total Score: 0 08/09/20 24 9:14 AM EDT documented as of this encounter Care Teams Garbage Worker Relationship Specialty Start Date End Date Krysta Lockett FNP [address] [place] [address] PCP - General Family Medicine 10/27/22 documented as of this encounter
--- OUTSIDE RECORDS SUMMARY | 2025-01-30 13:48 | XMS_ITS | Encounter Summary ---
Author Organization [employer] Address [address] [facility] 7t [place] [address] Care Team Providers Care Corpsman Name Role Phone [facility] Primary Care Provider [phone] Reason for Visit * Reason Onset Date Comments Nurse Triage 01/17/2025 Encounter Details Date Type Department Care Team ([facility] st Contact Info) Description 01/17/[address] [facility] MEDICINE [address] [place], [place] [phone] [facility] [address] [place] [address] Nurse Triage Social History Tobacco Use Types Packs/Day Years [...] encounter Miscellaneous Notes * Telephone Encounter - Luisa Sepulveda LPN - 01/17/2025 4:08 PM EDT Triage call returned with [facility] # [phone] Buddy, Daughter does not need picu nurse. Daughter reports patient had a headache yesterday and has notedtrending elevated Bgs and Bps. BG yesterday she believes was 230. Patient with dizziness at times. No other signs of acute illness at present. Patient had been taken off all diabetic meds some time ago. Disposition reviewed and Daughter Shasta in agreement with plan. Provided ASK/Mitzi TOYS INSPECTOR appt Friday 01/19 at 330pm. Patient to do home testing to present at time of appt. Daughter in agreement for CCA instead to see patient today for evaluation. Address and phone confirmed and referral placed. Protocol Used: Diabetes - High Blood Sugar (Adult) Protocol-Based Disposition: See in Office or Video Visit Today Override (Final) Disposition: See in Office or Video Visit within 3 Days Override Reason: Nurse judgment Override Notes: CCA to home today and to follow with inpatient visit on Wednesday Video visit offer not recorded Positive Triage Question: * Patient wants to be seen * All higher-acuity triage questions were negative Care Advice Discussed: * Treatment - Liquids * Reasons To Call Back - You become worse * Telephone Encounter - Magen Roldan - 01/17/2025 2:57 PM EDT Symptoms: High Blood Sugar - Caller Reports, Headache Outcome: Schedule a same-day appointment or talk to a nurse or provider today Reason: Caller denied all higher acuity questions Please contact pt at [phone]. (Japanese Speaker) documented in this encounter Plan of Treatment Upcoming Encounters Date Type Department Care Team (Late st Contact Info) Description 02/28/2025 10:15 AM EDT Office Visit [facility] MEDICINE [address] [place] [address] Krysta Lockett FNP [address] [place] [address] documented as of this encounter Visit Diagnoses Not on filedocumented in this encounter Additional Health Concerns Assessment Noted Time PHQ-9 Depression Total Score: 0 08/09/20 24 9:14 AM EDT documented as of this encounter Care Teams Corpsman Relationship Specialty Start Date End Date Krysta Lockett FNP [address] [place] [address] PCP - General Family Medicine 10/27/22 documented as of this encounter
--- OUTSIDE RECORDS SUMMARY | 2025-01-30 13:48 | XMS_ITS | Clinical Summary ---
Author Organization [facility] [employer] [facility] Address [address] [address] Care Team Providers Care Hse Specialist Name Role Phone Unavailable Primary Care Provider [...] % PVNMA 08/21/2020 us Rtama Conversion LAB [id number] LICITED RESULTS Final Result PVNMA from Last 3 Months or Most Recently Relevant to Health Maintenance Insurance [place]ICAID [place] MED[place]ARE
--- OUTSIDE RECORDS SUMMARY | 2025-01-30 13:49 | XMS_ITS | Data Portability ---
Author Organization [id number] Address [address] [place] [id number] Care Team Providers Care Ski Patrol Name Role Phone HIM CCA OTHER [facility] Primary Care Provider Assessment Encounter Date Assessment Date Assessment LastModified by Organization Details LastModified Time 01/19/2025 01/19/2025 I provided real -time medical direction via phone for this encounter and was available for additional phone-based assistance as needed. I have reviewed and agree with the Assessment and Plan as documented by the Lactation Specialist. Patient given the opportunity to ask questions. Our service contacted for an assessment of: elevated BG As per above, patient with elevated BG and went to see his doctor today to obtain blood work to see what medications he can be started on. He is eating and drinking normally. No polyuria, polydipsia or polyphagia. No unusual weight loss. Per coating line worker on the scene, VSS, BG 157 Impression: hyperglycemia - Plan: patient will receive treatment options from his PCP - hopefully today. Given BG is only slightly elevated - will re-enforce education surrounding diet, hydration. Red flags discussed. Allergies: Reviewed PCP f/u: We discussed the diagnostic uncertainty of home visits and the risk associated with this. In this case, the patient and I felt this to be an acceptable and reasonable amount of risk given the benefit of avoiding an ED visit. We discussed the need to seek care urgently/emergentl y in the setting of any new or worsening serious symptoms, particularly fever chills lightheadedness altered mental status [email or web address] Not available 01/19/2025 17:10:46 01/23/2025 01/23/2025 I provided real -time medical direction via phone for this encounter, and was available for additional phone based assistance as needed. I have reviewed and agree with the Assessment and Plan as documented by the Lactation Specialist. We discussed the diagnostic uncertainty of home visits and the risk associated with this. In this case the patient and I felt this to be an acceptable and reasonable amount of risk given the benefit of avoiding an ED visit. The patient given the opportunity to ask questions. Advised if develops CP/severe SOB/turning blue/uncontrolled n/v/d AMS/ syncope/ uncontrolled headache/ focal neuro deficit - vision- speech changes/ focal weakness ie/hi fever to call 911- verbalized understanding of instructions vis translator/interpreter [email or web address] Not available 01/23/2025 18:01:10 Plan of Treatment Reminders Order Date Submit Date Provider Last Modified By Organization Details Last Modified Time Details Appointments None recorded. Lab glucose, fingerstick , blood 2024 025 [email or web address] 0 [facility], [address] [place] [address], [phone], 17:26:47 urinalysis, dipstick [address], [phone], 09:16:17 glucose, fingerstick , blood 2024 025 [facility], [address] [place] [address], [phone], 19:19:25 Referral None recorded. Procedures None recorded. Surgeries None recorded. Imaging None recorded. Medication Orders acetaminoph en 500 mg tablet 2024 025 [email or web address] 0 [id number], [address] [place], [place], [phone], 17:34:06 Patient TargetsNo targets recorded. Patient InstructionsNo instructions recorded. Reason for Referral None Reported. Results Created Date Observation Date Name Description Value Unit Range Abnormal Flag Note LastModifiedBy Organization Detail LastModifiedTime 01/20/20 25 01/19/2025 gluco se, finge rstic k, blood Blood Glucose: mg/dl 157 Not Available [address], [phone], 01/19/2025 17:07:38 01/24/20 25 01/23/2025 gluco se, finge rstic k, blood Blood Glucose: mg/dl 118 Not Available Main - [facility], [phone], 01/23/2025 17:26:29 Result Notes None recorded. Medical Equipment None Reported. Allergies Allergen ID Allergen Name Allergen Category Reaction Reaction Severity Criticality Documentation Date Start Date Code Code System Note Provider Name and Address Organization Details Recorded Time 78529 aspirin medicatio n Not available Not available Not available 01/17/2025 1191 RxNorm Not Available [facility] - production 16:33:47 12688 Product containin g penicilli n (product) medicatio n Not available Not available Not available 01/17/2025 17455 8001 SNOMED Not Available [facility] - production 16:33:47 48776 Non-stero idal anti-infl ammatory agent (product) medicatio n Not available Not available Not available 01/17/2025 81491 005 SNOMED Not Available [facility] - production 16:33:47 Medications Name Sig Start Date Stop Date Status Note LastModified by Organization Details LastModified Time vit c gummie 125mg chw active Not Available Not Available No t Available vit c 125mg chewable gummies TAKE 1 TABLET BY MOUTH EVERY MORNING WITH IRON active Not Available Not Available No t Available vitamin c 250mg gummies TAKE 1 TABLET BY MOUTH EVERY MORNING WITH IRON active Not Available Not Available No t Available ipratropium 0.5 mg-albuterol 3 mg (2.5 mg base)/3 mL nebulization soln USE 3 ML VIA NEBULIZER TWICE DAILY active Not Available Not Available Not Available zinc gluconate 30 mg tablet TAKE 1 TABLET BY MOUTH DAILY active Not Available Not Available Not Available trazodone 100 mg tablet TAKE 1 TABLET BY MOUTH AT BEDTIME active Not Available Not Available No t Available sertraline 25 mg tablet TAKE 1 TABLET BY MOUTH ONCE DAILY active Not Available Not Available No t Available omeprazole 20 mg capsule,gary yed release TAKE 1 CAPSULE BY MOUTH EVERY MORNING BEFORE A MEAL active Not Available Not Available No t Available folic acid 1 mg tablet TAKE 1 TABLET BY MOUTH EVERY MORNING active Not Available Not Available No t Available midodrine 2.5 mg tablet TAKE 1 TABLET BY MOUTH TWICE DAILY IN THE MORNING AND AT BEDTIME active Not Available Not Available No t Available simethicone 80 mg chewable tablet CHEW 1 TABLET BY MOUTH 2 TO 4 TIMES A DAY NEEDED FOR ABDOMINAL DISTENTION active Not Available Not Available N ot Available diclofenac 1 % topical gel APPLY TOPICALLY TO AFFECTED AREAS TWICE DAILY active Not Available Not Available No t Available cholecalcife rol (vitamin D3) 50 mcg (2,000 unit) capsule TAKE 1 CAPSULE BY MOUTH DAILY active Not Available Not Available Not Available Eliquis 5 mg tablet TAKE 1 TABLET BY MOUTH TWICE DAILY ONCE EVERY MORNING AND ONCE EVERY NIGHT AT BEDTIME active Not Available Not Available No t Available Trelegy Ellipta 100 mcg-62.5 mcg-25 mcg powder for inhalation INHALE 1 PUFF BY MOUTH DAILY active Not Available Not Available Not Available glucose 3.75 gram chewable tablet CHEW 4 TABLETS NEEDED FOR low blood sugar (LESS THAN 70mg/dL) active Not Available Not Available No t Available Vitals Date Recorded Oxygen saturation Oxygen saturation in Arterial blood by Pulse oximetry Body weight Body height Heart rate Respiratory rate Systolic blood pressure Diastolic blood pressure Provider Name and Address Organization Details Last Updated DateTime 5 99 % 99 % 67636.4 8 g 177.8 cm 67 /min 16 /min 155 mm[Hg] 74 mm[Hg] Not Available [employer] 16:59:59 Date Recorded Body weight Body mass index (BMI) Provider Name and Address Organization Details Last Updated DateTime 01/23/2025 51631.55 g 27.3 kg/m2 Kerrie Kerr MD [address] [facility],[address], [place], [address], [place] - [employer] 01/23/2025 17:55:55 Date Recorded Respiratory rate Heart rate Body height Oxygen saturation Oxygen saturation in Arterial blood by Pulse oximetry Body temperature Systolic blood pressure Diastolic blood pressure Provider Name and Address Organization Details Last Updated DateTime 5 18 /min 64 /min 177.8 cm 98 % 98 % 98.7 [degF] 146 mm[Hg] 81 mm[Hg] Not Available [employer] 5 17:24:57 Social History None recorded. Functional Status None recorded. Mental Status None recorded. Family History Nothing Reported. Medical History No medical history recorded. Past Encounters Encounter ID Performer Location Encounter Start Date Encounter Closed Date Diagnosis/Indication Diagnosis SNOMED-CT Code Diagnosis ICD10 Code Diagnosis Note [id number] Sandra Olvera MD [facility] [address] [place] [phone] 01/19/2025 16:25:38 01/22/2025 22:06:20 Hyperglycemia 60392592 R73.9 [id number] Kerrie Kerr MD [facility] [address] [place] [phone] 01/23/2025 17:24:55 01/23/2025 19:49:59 Type 2 diabetes mellitus 82788368 E11.9 w/ mild headache- c/o urinary frequency will check urine UA neg except trace protein-pa t reassured- no infection not spilling sugar last Tylenol was 1 gram 11 hrs prior- offered another dose- accepted-a dvised via interprete r that maximum dose is 3 g per 24 hours-he verbalized understand ing Patient's current blood sugar is fine. He has not lost any weight., His A1c was 6 /nonfastin g, postprandi al blood sugar was 262. His PCP is trying to get him on Trulicity again(Was on it prior to his gastric bypass surgery) but they need insurance approval, thus I would not Rx anything differentl y at this time. Requested interprete r to review low glycemic carb diet- avoid concentrat ed sweets such as sugars, candies, cookies, cakes, white pasta, sodas, fruit juices- must eat protein with carbs Note sent to CP re getting dietary DM consult Health Concerns Section Related Observation LastModified by Organization Detai ls LastModified Time None Recorded Concern Status LastModified by Organization Details LastModified Time None Recorded Advance Directives Directive None Recorded Payers Encounter Date Sequence Insurance Name Policy Number Policy Jones Covered Member ID Jones Member ID Guarantor Name 01/19/2025 1 [facility] - DOS ON OR AFTER 2023 - DUAL ELIGIBLE - CARE HOME OPTIONS AND ONE CARE (MEDICARE REPLACEMENT/ADV ANTAGE - HMO) Armando Gay [id number] Armando Gay 01/23/2025 1 [facility] - DOS ON OR AFTER 2023 - DUAL ELIGIBLE - CARE HOME OPTIONS AND ONE CARE (MEDICARE REPLACEMENT/ADV ANTAGE - HMO) Armando Gay [id number] Armando Gay Notes Date Note Type Note Provider Name and Address Organization Details Recorded Time 01/19/2025 text/html HPI: Patient diet controlled DM 2 Post bariatric surgery. No longer on meds. had headache and trending elevated BG and BP per daughter Shasta. BG yesterday 230. Occasional dizziness. ....................... ....................... ....................... ....................... ....................... ....................... ... [facility] Nurse Triage Notes (Adriane Grayson): Chief Complaints: Diabetes Related, Dizziness, Headache PMH: Chronic Obstructive Pulmonary Disease (COPD), Diabetes Mellitus Type 2, Gastroesophageal Reflux Disease (GERD), Hyperthyroidism PMH Reviewed at 01/17/2025 - 16:33 Allergies Reviewed at 01/17/2025 - 16:33 Comments: HPI reviewed Lactation Specialist Organization Information for Waqas Wright [employer] Legal Name: [employer]? Address: [address] [place] [address], Service Advocate Contact: Andrew Woo MD CLIA No.: [id number] Lactation Specialist POC Test Results from [employer] Blood Glucose Measurement (17:03:58) Blood Glucose: 157 mg/dL ....................... ....................... ....................... ....................... ....................... ....................... ... Lactation Specialist Note From Waqas Wright: [facility] makes pt contact. He is standing in his doorway watching for [facility] arrival. He is generally well appearing and walks and moves w/o hinderance. No ashen or maguire color is noted, his chest rises and falls softly w/ respirations w/ no stridor or sonorous respirations present. No facial droop, one-sided weakness, or slurred speech are observed and he is not bleeding anywhere. Pt is Cuban-speaking only and daughter is on scene for translation. Pt c/o his blood sugar and his blood pressures being higher than normal. He has a hx of severe DMII and had bariatric surgery x3 years ago and he has been able to keep his BG under control. Pt endorses a highest CBG of 230 yesterday, and early this morning he had one around 190. Pt was seen by his PCP this morning and blood work was done in order to consider what medication to put him on for his DM. He is awaiting results and a call back from his MD at this time. Pt has no c/o cp, sob, v/d, fevers/chills, or bladder/bowel complaints. He does endorse some mild nausea today, but is otherwise symptom-free. Pt consents to treatment and evaluation today. [facility] obtains pt consent, vital signs are gathered, and pt is assessed. Lung sounds are clear and equal to auscultation, abdomen is soft and nontender, w/ no guarding, distension, or pulsating masses, bilateral LE's have 1+ edema. FSBS is obtained and is 157. [facility] contacts [facility] and discusses the above. [facility] recommends pt wait on results of his lab work as his physical exam and vital signs are noted life-threatening or concerning at this time. [facility] informs pt to seek emergency room care if he develops a high fever, n/v/d he can't control, bloody emesis or stools, cp, or sob. Daughter translates and pt expresses his verbal understanding. [facility] is clear. Report completed by TUNDE Wright [id number]. [facility] Lab Orders: glucose, fingerstick, blood: Performed ....................... ....................... ....................... ....................... ....................... ....................... ... [facility] Consulted: Sandra Olvera ....................... ....................... ....................... ....................... ....................... ....................... ... Disposition: Fulfilled Sandra Olvera MD [address] [place] [address],[facility], [place], [phone], [employer] 01/19/2025 19:15:09 01/23/2025 text/html CRC Nurse Triage Notes (Jamey Mims): Reason For Request: high blood sugar, 230, pt does not have medication to controlDenies: Elevated blood sugar over 500 Acute Cardiac pain Nausea/Vomiting greater than 8 hours Decreased LOC and lethargy Fever unable to tolerate oral fluids or foods Chief Complaints: Diabetes RelatedPMH: Chronic Obstructive Pulmonary Disease (COPD), Diabetes Mellitus Type 2, Gastroesophageal Reflux Disease (GERD), HyperthyroidismPMH Reviewed at 01/23/2025 - 16:07Allergies Reviewed at 01/23/2025 - 16:07Comments: Cocktail Server verified the patient's name//address and phone number. Pt's daughter calling reporting pt has not been feeling well. Daughter reports pt's blood sugar was up to 230 but after drinking water it was 110. Daughter reports pt's blood sugars had been improved so his diabetes medications had been stopped. Pt reports pt had headache when his blood sugar was elevated but headache has resolved at this time. Education provided on the response time and the patient was advised to monitor reported s/s and seek emergency treatment if needed -Alexander Mims RN Lactation Specialist Organization Information for Janice Pinedo Legal Name: [employer]?Address: [address] [place] [address], Medical Director: Andrew Woo [facility] No.: [id number] Lactation Specialist POC Test Results from Janice Pinedo Blood Glucose Measurement (17:22:03)Blood Glucose: 118 mg/dL Urine Dipstick (17:41:55) Urine leukocytes: - BELKYS Urine nitrites: - NIT Urine urobilinogen: 0.2 URO Urine protein: 15+/- PRO Urine pH: 5.0 pH Urine blood: - BLO Urine specific gravity: 1.015 SG Urine ketones: - KET Urine bilirubin: - MILI Urine glucose: - GLU Attachments uploaded as part of this test result can be found under Documents section. CRC Nurse Triage Notes (Jamey Mims): Reason For Request: high blood sugar, 230, pt does not have medication to controlDenies: Elevated blood sugar over 500 Acute Cardiac pain Nausea/Vomiting greater than 8 hours Decreased LOC and lethargy Fever unable to tolerate oral fluids or foods Chief Complaints: Diabetes RelatedPMH: Chronic Obstructive Pulmonary Disease (COPD), Diabetes Mellitus Type 2, Gastroesophageal Reflux Disease (GERD), HyperthyroidismPMH Reviewed at 01/23/2025 - 16:07Allergies Reviewed at 01/23/2025 - 16:07Comments: Cocktail Server verified the patient's name//address and phone number. Pt's daughter calling reporting pt has not been feeling well. Daughter reports pt's blood sugar was up to 230 but after drinking water it was 110. Daughter reports pt's blood sugars had been improved so his diabetes medications had been stopped. Pt reports pt had headache when his blood sugar was elevated but headache has resolved at this time. Education provided on the response time and the patient was advised to monitor reported s/s and seek emergency treatment if needed -Alexander Mims RN Lactation Specialist Organization Information for Janice Pinedo [employer] Legal Name: [employer]Address: [address] [place] [address] [place] [address], Medical Director: Andrew Woo MDCLIA No.: [id number] Lactation Specialist POC Test Results from Janice Pinedo [employer] Blood Glucose Measurement (17:22:03)Blood Glucose: 118 mg/dL SEGMD: Patient was seen by our service on 315 with similar complaints his blood sugar was 157. Office visits note from PCP on 01/19: Patient's weight was 88.7 kg or 195 pounds. His blood sugar was 262 nonfasting and his A1c was 6. Patient denied polyuria /polydipsia or weight loss on our prior visit. He now states he is had increased urination since yesterday and increased thirst for 3 days and is unsure if he has lost weight. No nausea vomiting diarrhea. He had a mild headache earlier and some nausea. The nausea is gone and his headache has improved. He took 1 g of Tylenol 11 hours prior. Pat has been eating high carbs only / no real protein today. ....................... ....................... ....................... ....................... ....................... ....................... ... Lactation Specialist Note From Janice Pinedo: Sent to a call for a pt complaining of high blood sugar. [employer] arrives on scene, pt is alert and oriented, airway is patent. Pt speaks Cuban, and pt's daughter (via phone) serves as translator/interpreter. Pt complains of high blood sugar x 3 weeks. Pt states he had Gastric Bypass surgery approx 3 years ago and was taken off Trulicity. Pt states his BG has ranged from 90-232 over the past few weeks. Pt states he went to PCP on Friday 01/19, had bloodwork drawn, and [facility]. Pt complains of headache today, with (nausea earlier, now resolved). Pt also complains of polydypsia x 3 days, and polyuria since yesterday. Pt denies vision changes, dizziness, cp, sob, vomiting, diarrhea, abd pain, fever, or loc. Pt states he pancakes without sugar and coffee with cream this morning; and rice with veggies and iced tea/lemonade this afternoon. Pt states BG was 230 at approx 1500, and B at approx 1600. Pt took Tylenol 1gm PO at approx 6am. BP:146/81, P:64, RR:18, SpO2:98% RA, T:98.7, B; Neuro exam: neg; Head: unremarkable; Lung sounds: clear bilaterally; Abdomen: soft, non-tender, no distention; Back: unremarkable; Extremities: unremarkable; Skin: pink, warm, dry; [facility] consulted and orders urine dip and Tylenol 1gm PO. Pt advised not to exceed Tylenol 3gms daily. Urine sample obtained via clean catch; Urine dip results: uploaded to [facility]; Tylenol 1gm PO administered without incident. Pt is advised to eat protein with carbs, avoid fried foods, and given food alternatives for better diabetic diet. Pt is reassured urine has no glucose or ketones. Pt is advised to follow up with PCP regarding treatment plan. Red flags discussed. Pt/family has no further questions. [facility] Lab Orders: glucose, fingerstick, blood: Performed urinalysis, dipstick: Performed [facility] Medication Orders: acetaminophen 500 mg tablet: Administered ....................... ....................... ....................... ....................... ....................... ....................... ... [facility] Consulted: Kerrie Kerr ....................... ....................... ....................... ....................... ....................... ....................... ... Disposition: Fulfilled Kerrie Kerr MD [address] [place] [address],[address], [place], [phone], DARREN SALINAS 01/23/2025 19:12:43
--- OUTSIDE RECORDS SUMMARY | 2025-01-30 13:49 | XMS_ITS | Continuity of Care Document ---
Author Organization [facility], [place] in - formerly [facility] Address [address] [place] [phone] Care Team Providers Care Computer Science Instructor Name Role Phone HIM [facility] OTHER [facility] Primary Care Provider [phone] Assessment Encounter Date Assessment Date Assessment LastModified by Organization Details LastModified Time 01/23/2025 01/23/2025 I provided real -time medical direction via phone for this encounter, and was available for additional phone based assistance as needed. I have reviewed and agree with the Assessment and Plan as documented by the Remote Control Mirror Installer. We discussed the diagnostic uncertainty of home visits and the risk associated with this. In this case the patient and I felt this to be an acceptable and reasonable amount of risk given the benefit of avoiding an ED visit. The patient given the opportunity to ask questions. Advised if develops CP/severe SOB/turning blue/uncontrolle d n/v/d AMS/ syncope/ uncontrolled headache/ focal neuro deficit - vision- speech changes/ focal weakness ie/hi fever to call 911- verbalized understanding of instructions vis glass checker Not available 01/23/2025 18:01:10 Plan of Treatment Reminders Order Date Submit Date Provider Last Modified By Organization Details Last Modified Time Details Appointments None recorded. Lab glucose, fingerstick , blood 2024 025 [email or web address] 0 [facility], [address] [place] [address], [phone], 5 17:26:47 urinalysis, dipstick 2024 025 COOPER [facility], [address] [place] [address], [phone], 5 09:16:17 Referral None recorded. Procedures None recorded. Surgeries None recorded. Imaging None recorded. Medication Orders acetaminoph en 500 mg tablet 2024 025 [email or web address] 0 [id number], [address], [place], [phone], 17:34:06 Patient TargetsNo targets recorded. Patient InstructionsNo instructions recorded. Reason for Referral None Reported. Results Created Date Observation Date Name Description Value Unit Range Abnormal Flag Note LastModifiedBy Organization Detail LastModifiedTime 01/24/2001/23/2025 gluco se, finge rstic k, blood Blood Glucose: mg/dl 118 Not Available Main - [facility] [address] [place] [address], [phone], 01/23/2025 17:26:29 Result Notes None recorded. Medical Equipment None Reported. Allergies Allergen ID Allergen Name Allergen Category Reaction Reaction Severity Criticality Documentation Date Start Date Code Code System Note Provider Name and Address Organization Details Recorded Time 02766 aspirin medicatio n Not available Not available Not available 01/17/2025 1191 RxNorm Not Available [facility] - production 16:33:47 08568 Product containin g penicilli n (product) medicatio n Not available Not available Not available 01/17/2025 62090 8001 SNOMED Not Available [facility] - production 16:33:47 95257 Non-stero idal anti-infl ammatory agent (product) medicatio n Not available Not available Not available 01/17/2025 29145 005 SNOMED Not Available [facility] - production 16:33:47 Medications Name Sig Start Date Stop Date Status Note LastModified by Organization Details LastModified Time vit c 125mg chewable gummies TAKE 1 TABLET BY MOUTH EVERY MORNING WITH IRON active Not Available Not Available No t Available vit c gummie 125mg chw active Not [...] Available No t Available Vitals Date Recorded Body weight Body mass index (BMI) Provider Name and Address Organization Details Last Updated DateTime 01/23/2025 69763.55 g 27.3 kg/m2 Kerrie Kerr MD [address] [facility],[address], [place], [address], [place] - [facility] 01/23/2025 17:55:55 Date Recorded Respiratory rate Heart rate Body height Oxygen saturation Oxygen saturation in Arterial blood by Pulse oximetry Body temperature Systolic blood pressure Diastolic blood pressure Provider Name and Address Organization Details Last Updated DateTime 18 /min 64 /min 177.8 cm 98 % 98 % 98.7 [degF] 146 mm[Hg] 81 mm[Hg] Not Available [facility] 17:24:57 Social History None recorded. Functional Status None recorded. Mental Status None recorded. Family History Nothing Reported. Medical History No medical history recorded. Past Encounters Encounter ID Performer Location Encounter Start Date Encounter Closed Date Diagnosis/Indication Diagnosis SNOMED-CT Code Diagnosis ICD10 Code Diagnosis Note [id number] Sandra Olvera MD Main - [facility] [address] [place] [phone] 01/19/2025 16:25:38 01/22/2025 22:06:20 Hyperglycemia 74032597 R73.9 [id number] Kerrie Kerr MD Main - [facility] [address] [place] [phone] 01/23/2025 17:24:55 01/23/2025 19:49:59 Type 2 diabetes mellitus 31084754 E11.9 w/ mild headache- c/o urinary frequency [...] by Organization Details LastModified Time None Recorded Payers Encounter Date Sequence Insurance Name Policy Number Policy Jones Covered Member ID Jones Member ID Guarantor Name 01/23/2025 1 [facility] - DOS ON OR AFTER 2023 - DUAL ELIGIBLE - [employer]CI OPTIONS AND ONE CARE (MEDICARE REPLACEMENT/ADV ANTAGE - HMO) Armando Gay [id number] Armando Gay Notes Date Note Type Note Provider Name and Address Organization Details Recorded Time 01/23/2025 text/html CRC Nurse Triage Notes (Jamey [...] Disease (GERD), HyperthyroidismPMH Reviewed at 01/23/2025 - :07Allergies Reviewed at 01/23/2025 - :07Comments: Gamma Operator verified the patient's name//address and phone number. [...] emergency treatment if needed -Alexander Mims RN Remote Control Mirror Installer Organization Information for Janice Pinedo Legal Name: [employer].?Address: [address] [place] [address], [facility] Andrew Woo [facility] No.: [id number] Remote Control Mirror Installer POC Test Results from Janice Pinedo Blood [...] Mellitus Type 2, Gastroesophageal Reflux Disease (GERD), HyperthyroidismH Reviewed at 01/23/2025 - 16:07Allergies Reviewed at 01/23/2025 - 16:07Comments: Gamma Operator verified the patient's name//address and phone number. [...] emergency treatment if needed -Alexander Mims RN Remote Control Mirror Installer Organization Information for Janice Pinedo Kasey Levi Legal Name: [employer]?Address: [address] [place] [address], Medical Director: Andrew Woo [facility] No.: [id number] Remote Control Mirror Installer POC Test Results from Janice Pinedo Kasey SCHULZ Blood Glucose Measurement (17:22:03)Blood Glucose: 118 mg/dL [...] ....................... ....................... ....................... ....................... ....................... ....................... ... Remote Control Mirror Installer Note From Janice Pinedo: Sent to a call for a pt complaining of high blood sugar. SC8 arrives on scene, pt is alert and oriented, airway is patent. Pt speaks Slovenian, and pt's daughter (via phone) serves as glass checker. Pt complains of high blood sugar x 3 weeks. Pt states he had Gastric Bypass surgery approx 3 years ago and was taken off Trulicity. Pt states his BG has ranged from 90-232 over the past few weeks. Pt states he went to PCP on Friday 01/19, had bloodwork drawn, and is waiting for Trulicity to be approved by insurance. Pt complains [...] unremarkable; Extremities: unremarkable; Skin: pink, warm, dry; [facility] [place] and orders urine dip and Tylenol 1gm PO. Pt advised not to exceed Tylenol 3gms daily. Urine sample obtained via clean catch; [facility]; Tylenol 1gm PO administered without incident. Pt is advised to eat protein with carbs, avoid fried foods, and given food alternatives for better diabetic diet. Pt is reassured urine has no glucose or ketones. Pt is advised to follow up with PCP regarding treatment plan. Red flags discussed. Pt/family has no further questions. [facility] Lab Orders: glucose, fingerstick, blood: Performed urinalysis, dipstick: Performed [facility] Medication Orders: acetaminophen 500 mg tablet: Administered ....................... ....................... ....................... ....................... ....................... ....................... ... [facility] Consulted: Kerrie Kerr ....................... ....................... ....................... ....................... ....................... ....................... ... Disposition: Fulfilled Kerrie Kerr MD [address] [facility],[address], [place], [address], [place] - DARREN CONTRERAS 01/23/2025 19:12:43
--- OUTSIDE RECORDS SUMMARY | 2025-01-30 13:49 | XMS_ITS | Encounter Summary ---
Author Organization [employer] Address [address] [facility] 7t [place] [address] Care Team Providers Care School Bus Monitor Name Role Phone [place] [facility] Primary Care Provider [phone] Encounter Details Date Type Department Care Team (Late st Contact Info) Description 07/19/2024 Orders Only [facility] [address] [place], [place] [phone] [facility] [address] [place], [place] [phone] Social History Tobacco Use Types Packs/Day Years [...] Description 02/28/2025 10:15 AM EDT Office Visit [facility] [address] [place] [address] Krysta Lockett FNP [address] [place] [address] documented as of this encounter Visit Diagnoses Not on filedocumented in this encounter Additional Health Concerns Assessment Noted Time PHQ-9 Depression Total Score: 0 12/08/19 24 10:42 AM EST documented as of this encounter Care Teams School Bus Monitor Relationship Specialty Start Date End Date Krysta Lockett FNP [address] [place] [address] PCP - General Family Medicine 10/27/22 documented as of this encounter
--- OUTSIDE RECORDS SUMMARY | 2025-01-30 13:49 | XMS_ITS | Continuity of Care Document ---
Author Organization [facility], [place] - Formerly [facility] Address [address] [place] [phone] Care Team Providers Care Salvage Winder And Inspector Name Role Phone HIM [facility] OTHER [facility] Primary Care Provider Assessment Encounter Date Assessment Date Assessment LastModified by Organization Details LastModified Time 01/19/2025 01/19/2025 I provided real -time medical direction via phone for this encounter and was available for additional phone-based assistance as needed. I have reviewed and agree with the Assessment and Plan as documented by the Cafe Or Restaurant Manager. Patient given the opportunity to ask questions. Our service contacted for an assessment of: elevated BG As per above, patient with elevated BG and went to see his doctor today to obtain blood work to see what medications he can be started on. He is eating and drinking normally. No polyuria, polydipsia or polyphagia. No unusual weight loss. Per marble ceiling installer on the scene, VSS, BG 157 Impression: [...] mental status [email or web address] Not available 01/19/2025 17:10:46 Plan of Treatment Reminders Order Date Submit Date Provider Last Modified By Organization Details Last Modified Time Details Appointments None recorde d. Lab glucose , fingers tick, blood 025 01/20/20 25 COOPER [facility], [address] [place] [address], [phone], 19:19:25 Referral None recorde d. Procedures None recorde d. Surgeries None recorde d. Imaging None recorde d. Medication Orders None recorde d. Patient TargetsNo targets recorded. Patient InstructionsNo instructions recorded. Reason for Referral None Reported. Results Created Date Observation Date Name Description Value Unit Range Abnormal Flag Note LastModifiedBy Organization Detail LastModifiedTime 01/20/2001/19/2025 gluco se, finge rstic k, blood Blood Glucose: mg/dl 157 Not Available Main - [facility] [address] [place] [address], [phone], 01/19/2025 17:07:38 Result Notes None recorded. Medical Equipment None Reported. Allergies Allergen ID Allergen Name Allergen Category Reaction Reaction Severity Criticality Documentation Date Start Date Code Code System Note Provider Name and Address Organization Details Recorded Time 51188 aspirin medicatio n Not available Not available Not available 01/17/2025 1191 RxNorm Not Available [facility] - production 5 16:33:47 90141 Product containin g penicilli n (product) medicatio n Not available Not available Not available 01/17/2025 19007 8001 SNOMED Not Available [facility] - production 16:33:47 06752 Non-stero idal anti-infl ammatory agent (product) medicatio n Not available Not available Not available 01/17/2025 86246 005 SNOMED Not Available [facility] - production [...] Updated DateTime 5 99 % 99 % 25291.4 8 g 177.8 cm 67 /min 16 /min 155 mm[Hg] 74 mm[Hg] Not Available [facility] - production 5 16:59:59 Social History None recorded. Functional Status None recorded. Mental Status None recorded. Family History Nothing Reported. Medical History No medical history recorded. Past Encounters Encounter ID Performer Location Encounter Start Date Encounter Closed Date Diagnosis/Indication Diagnosis SNOMED-CT Code Diagnosis ICD10 Code Diagnosis Note [id number] Sandra Olvera MD Main - [facility] [address] [place] [address] 01/19/2025 16:25:38 01/22/2025 22:06:20 Hyperglycemia 64570426 R73.9 Health Concerns Section Related Observation LastModified by Organization Detai ls LastModified Time None Recorded Concern Status LastModified by Organization Details LastModified Time None Recorded Payers Encounter Date Sequence Insurance Name Policy Number Policy Jones Covered Member ID Jones Member ID Guarantor Name 01/19/2025 1 [facility] - DOS ON OR AFTER 2023 - DUAL ELIGIBLE - [employer]DC OPTIONS AND ONE CARE (MEDICARE REPLACEMENT/ADV ANTAGE - HMO) Armando Salmeron Victor Hugo [id number] Armando Salmeron Victor Hugo Notes Date Note Type Note Provider Name and Address Organization Details Recorded Time 01/19/2025 text/html HPI: Patient diet controlled DM 2 Post bariatric surgery. No longer on meds. had headache and trending elevated BG and BP per daughter Shasta. BG yesterday 230. Occasional dizziness. ...................... ...................... ...................... ...................... ...................... ...................... ......... CRC Nurse Triage Notes (Adriane Grayson): Chief Complaints: Diabetes Related, Dizziness, Headache PMH: Chronic Obstructive Pulmonary Disease (COPD), Diabetes Mellitus Type 2, Gastroesophageal Reflux Disease (GERD), Hyperthyroidism PMH Reviewed at 01/17/2025 - 16:33 Allergies Reviewed at 01/17/2025 - 16:33 Comments: HPI reviewed Cafe Or Restaurant Manager Organization Information for Wright Svetlanale[employer] Legal Name: [employer]? Address: [address] [place] [address], Personnel Counselor: Andrew Woo MD CLIA No.: [id number] Cafe Or Restaurant Manager POC Test Results from Wright Waqas [employer] Blood Glucose Measurement (17:03:58) Blood Glucose: 157 mg/dL ...................... ...................... ...................... ...................... ...................... ...................... ......... Cafe Or Restaurant Manager Note From Waqas Wright: [facility] makes pt contact. He is standing in his doorway watching for [facility] arrival. He is generally well appearing and walks and moves w/o hinderance. No ashen or maguire color is noted, his chest rises and falls softly w/ respirations w/ no stridor or sonorous respirations present. No facial droop, one-sided weakness, or slurred speech are observed and he is not bleeding anywhere. Pt is Kiswahili-speaking only and daughter is on scene for [...] Pt consents to treatment and evaluation today. [facility] obtains pt consent, vital signs are gathered, and pt is assessed. Lung sounds are clear and equal to auscultation, abdomen is soft and nontender, w/ no guarding, distension, or pulsating masses, bilateral LE's have 1+ edema. FSBS is obtained and is 157. [facility] contacts [facility] and discusses the above. [facility] recommends pt wait on results of his lab work as his physical exam and vital signs are noted life-threatening or concerning at this time. [facility] informs pt to seek emergency room care if he develops a high fever, n/v/d he can't control, bloody emesis or stools, cp, or sob. Daughter translates and pt expresses his verbal understanding. MIH is clear. Report completed by TUNDE Wright [id number]. [facility] Lab Orders: glucose, fingerstick, blood: Performed ...................... ...................... ...................... ...................... ...................... ...................... ......... [facility] Consulted: Sandra Olvera ...................... ...................... ...................... ...................... ...................... ...................... ......... Disposition: Fulfilled Sandra Olvera MD [address] [facility],[address], [place], [address], [employer] 01/19/2025 19:15:09
--- OUTSIDE RECORDS SUMMARY | 2025-01-30 13:49 | XMS_ITS | Encounter Summary ---
Author Organization [employer] Address [address] [facility] 7[address] [place] [address] Care Team Providers Care Water Quality Tester Name Role Phone Krysta Lockett PATTERN ILLUSTRATOR Primary Care Provider [phone] Encounter Details Date Type Department Care Team (Late st Contact Info) Description 02/16/2024 Orders Only [facility] [address] [place], [place] [phone] Provider, MD Lairssa Social History Tobacco Use Types Packs/Day Years [...] Description 02/28/2025 10:15 AM EDT Office Visit [facility] [address] [place] [address] [place], Krysta, [facility] [address] [place] [address] documented as of this encounter Procedures Procedure Name Priority Date/Time Associated Diagnosis Comments US RENAL BI Routine 03/08/2024 12:37 PM EDT COLONOSCOPY Routine 07/18/2019 7:44 AM EDT documented in this encounter Results * US RENAL BI (03/08/2024 12:37 PM EDT) Anatomical Region Laterality Modality Abdomen Ultrasound 03/08/2024 12:3 7 PM EDT Narrative 03/10/2024 10:07 AM EDT ? [facility] ?[address] ?[place] [address] ? Ultrasound Report ? Signed ? Patient: Jaron Gay,Armando ?MR#: [id number] ?? [id number] ? : 1955 ?Acct:[id number] ? Age/Sex: 68 / M ?ADM Date: 05/01/24 ? Loc: HO.US ? Attending Dr: Bladimir Le MD ? Ordering Physician: Bladimir Le MD ?? Date of Service: 03/08/24 ?? Procedure(s): US renal BI ?? Accession Number(s): [id number] ? cc: Bladimri Le MD; CathrynKrysta [facility] ? EXAMINATION: ?? US RETROPERITONEAL LIMITED (RENAL [...] 1004 ? DD/ 1237 ? TD/TT: ? Rail Switchman: JK ? Procedure Note Peggy Larose - 03/10/2024 [place] [address] Ultrasound Report Signed Patient: Armando BaMR#: [id number] : 6Acct:[id number] Age/Sex: 68 / MADM Date: 03/08/24 Loc: HO.US Attending Dr: Bladimir Le MD Ordering Physician: Bladimir Le MD Date of Service: 03/08/24 Procedure(s): US renal BI Accession Number(s): [id number] cc: Bladimir Le MD; Krysta Lockett [facility] EXAMINATION: US RETROPERITONEAL LIMITED (RENAL ONLY) CLINICAL [...] in OV> 03/10/24 1004 DD/ 1237 TD/TT: Rail Switchman: ELA[facility] External Provider IMG US PROCEDURES Final Result * Hm Colonoscopy (07/18/2019 7:44 AM EDT) Historical Provider HEALTH MAINTENANCE Final Result documented in this encounter Visit Diagnoses Not on filedocumented in this encounter Additional Health Concerns Assessment Noted Time PHQ-9 Depression Total Score: 0 12/08/19 10:42 AM EST documented as of this encounter Care Teams Water Quality Tester Relationship Specialty Start Date End Date Krysta Lockett FNP [address] [place] [address] PCP - General Family Medicine 10/27/22 documented as of this encounter
== END 2025-01-30 11:47 | disposition home or self-care (01) ==
LOC: HO.HPS 11:12
PROVIDERS: PCP Registered Nurse; Visit Provider Hospitalist
DX: J41.0 Simple chronic bronchitis (principal); I26.94 Multiple subsegmental thrombotic pulmonary emboli without acute cor pulmonale; J98.4 Other disorders of lung; R91.8 Other nonspecific abnormal finding of lung field
CPT/HCPCS: 99214

== ENCOUNTER → 2025-01-30 11:12 | Outpatient (BNVA) | payer OTHER, SELFPAY | PROVIDERS: PCP Registered Nurse; Visit Provider Hospitalist | DX: J41.0 Simple chronic bronchitis (principal); I26.94 Multiple subsegmental thrombotic pulmonary emboli without acute cor pulmonale; J98.4 Other disorders of lung; R91.8 Other nonspecific abnormal finding of lung field; Z79.01 Long term (current) use of anticoagulants | CPT/HCPCS: 99212 ==

== ENCOUNTER 2025-03-01 14:45 | Outpatient (REF) | payer OTHER, SELFPAY ==
[2025-03-01 15:57] LABS: MANUAL DIFF FLAG NO
[2025-03-01 16:09] LABS: Basophils Percent Auto 0.8 % (0-2); Eosinophils Absolute Auto 0.2 X10*3/uL (0.0-0.4); Eosinophils Percent Auto 3.1 % (0-4); Hematocrit 40.2 % (42.0-52.0); Hemoglobin 12.7 g/dl (14.0-18.0); Lymphocytes Absolute Auto 1.6 X10*3/uL (1.2-4.9); Lymphocytes Percent Auto 33.1 % (20-40); Mean Corpuscular HGB Conc 31.6 g/dl (31.0-36.0); Mean Corpuscular Hemoglobin 30.7 pg (27.0-33.0); Mean Corpuscular Volume 97.1 fL (80.0-98.0); Mean Platelet Volume 9.9 fL (9.4-12.4); Monocytes Absolute Auto 0.3 X10*3/uL (0.1-1.2); Monocytes Percent Auto 6.8 % (2-11); Neutrophils Absolute Auto 2.7 x10*3/uL (2.0-8.3); Neutrophils Percent Auto 56.2 % (45-73); Platelet Count 238 X10*3/uL (160-400); Red Blood Count 4.14 X10*6/uL (4.60-5.80); Red Cell Distribution Width 11.9 % (11.0-16.0); White Blood Count 4.8 X10*3/uL (4.8-10.8)
[2025-03-01 16:31] LABS: Anion Gap 10 (12-20)
[2025-03-01 16:37] LABS: Alanine Aminotransferase 14 U/L (0-40); Albumin Level 3.7 g/dL (3.5-5.0); Aspartate Amino Transferase 28 U/L (5-37); Bilirubin Total 0.7 mg/dL (0.0-1.0); Blood Urea Nitrogen 15 mg/dL (9-16); Calcium 9.2 mg/dL (8.4-10.2); Carbon Dioxide 29 mmol/L (22-29); Chloride 105 mmol/L (96-108); Cholesterol 177 mg/dL (<200); Estimated Glomerular Filt Rate 51; Glucose Random 120 mg/dL (60-115); HDL Cholesterol 72 mg/dL (>40); LDL Cholesterol Calculated 94 mg/dL (<100); Potassium 4.4 mmol/L (3.3-5.1); Sodium 140 mmol/L (135-145); Total Protein 6.7 g/dL (6.5-8.0); Triglycerides 57 mg/dL (<150)
[2025-03-01 16:51] LABS: Alkaline Phosphatase 110 U/L (39-117)
--- OUTSIDE RECORDS SUMMARY | 2025-03-01 17:32 | XMS_ITS | Clinical Summary ---
Author Organization [facility] Facility Address [address] [address] Care Team Providers Care Graphic Art Designer Name Role Phone Unavailable Primary Care Provider [...] Due Date Last Done Comments Pneumococcal Vaccine: 50+ Ye ars (1 of 2 - PCV) 1975 Colorectal Cancer Screening: Annual FOBT 2005 Colorectal Cancer Screening: Colonoscopy 2005 Colorectal Cancer Screening: Sigmoidoscopy 2005 Diabetes: Hemoglobin A1C 12/08/2020 08/21/2020 Diabetes: Ophthalmology Exam 12/08/2020 Diabetes: Pedal Pulse Checked 12/08/2020 Diabetes: Sensory Foot Exam 12/08/2020 Diabetes: Visual Foot Exam 12/08/2020 Influenza Vaccine (Season Ended) 2025 Hepatitis B Vaccine Aged Out No longe [...] % PVNMA 08/21/2020 us [facility]version [facility] [id number] LICITED RESULTS Final Result PVNMA from Last 3 Months or Most Recently Relevant to Health Maintenance Insurance Medicaid [place] Medicare Medicaid [place] Medicare
--- OUTSIDE RECORDS SUMMARY | 2025-03-01 17:32 | XMS_ITS | Encounter Summary ---
Author Organization [facility] Address [address] [place] [address] 7t [place] [address] Care Team Providers Care Chemist Helper Name Role Phone Roberto Carlos Coleman MD Primary Care Provider Krysta Nichols Primary Care Provider [phone] Encounter Details Date Type Department Care Team (Latest Contact Info) Description 12/01/2019 Abstract [facility] CONVERSIONS Dental, Provider, DDS Social History Tobacco [...] Care Team (Late st Contact Info) Description 03/14/2025 10:00 AM EDT Clinical Support [facility] [address] [place] [address] documented as of this encounter Visit Diagnoses Not on filedocumented in this encounter Care Teams Chemist Helper Relationship Specialty Start Date End Date Roberto Carlos Coleman MD PCP - General Family Medicine 04/19/20 10/26/22 Krysta Lockett FNP [address] [place] [address] PCP - General Family Medicine 10/27/22 documented as of this encounter
--- OUTSIDE RECORDS SUMMARY | 2025-03-01 17:32 | XMS_ITS | Encounter Summary ---
Author Organization [employer] Address [address] [place] [address] 7t [place] [address] Care Team Providers Care Solution Analyst Name Role Phone Krysta Lockett [facility] Primary Care Provider [phone] Encounter Details Date Type Department Care Team (Late st Contact Info) Description 11/18/2022 Orders Only [facility] [address] [place] [address] Amanda Haynes LPN Social History Tobacco Use [...] Description 03/14/2025 10:00 AM EDT Clinical Support [facility] [address] [place] [address] documented as of this encounter Visit Diagnoses Not on filedocumented in this encounter Care Teams Solution Analyst Relationship Specialty Start Date End Date Krysta Lockett FIRE RANGER [address] [place] [address] PCP - General Family Medicine 10/27/22 documented as of this encounter
--- OUTSIDE RECORDS SUMMARY | 2025-03-01 17:32 | XMS_ITS | Encounter Summary ---
Author Organization [employer] Address [address] [facility] 7t [place] [address] Care Team Providers Care Manager Retail Sales Name Role Phone Krysta Lockett ELECTROSTATIC POWDER COATING TECHNICIAN Primary Care Provider [phone] Reason for Visit * Reason Comments Med Refill Encounter Details Date Type Department Care Team (Late Contact Info) Description 11/24/[address] [facility] [address] [place] [address] Chey Multani MD [address] [place] [address] Social History Tobacco Use Types Packs/Day Years [...] rx for persistent orthostatic hypotension. T/C to [facility] pharmacy. Zeinab states that pt has been getting med boxes regularly and is due for med box delivery tomorrow. documented in this encounter Plan of Treatment Upcoming Encounters Date Type Department Care Team (Late Contact Info) Description 03/14/2025 10:00 AM EDT Clinical Support [facility] [address] [place] [address] documented as of this encounter Visit Diagnoses Not on filedocumented in this encounter Care Teams Manager Retail Sales Relationship Specialty Start Date End Date Krysta Lockett FNP [address] [place] [address] PCP - General Family Medicine 10/27/22 documented as of this encounter
--- OUTSIDE RECORDS SUMMARY | 2025-03-01 17:32 | XMS_ITS | Encounter Summary ---
Author Organization [employer] Address [address] [facility] 7t [place] [address] Care Team Providers Care Line Builder Name Role Phone [facility] Primary Care Provider [phone] Encounter Details Date Type Department Care Team (Late st Contact Info) Description 09/01/2023 Abstract [facility] [address] [place], [place] [phone] [facility] [address] [place] [address] Social History Tobacco Use Types Packs/Day Years [...] Description 03/14/2025 10:00 AM EDT Clinical Support [facility] [address] [place] [address] documented as of this encounter Visit Diagnoses Not on filedocumented in this encounter Additional Health Concerns Assessment Noted Time PHQ-9 Depression Total Score: 0 12/21/19 23 10:22 AM EST documented as of this encounter Care Teams Line Builder Relationship Specialty Start Date End Date Krysta Lockett FNP [address] [place] [address] PCP - General Family Medicine 10/27/22 documented as of this encounter
--- OUTSIDE RECORDS SUMMARY | 2025-03-01 17:32 | XMS_ITS | Encounter Summary ---
Author Organization [employer] Address [address] [place] [address] 7t [place] [address] Care Team Providers Care Pipeline Superintendent Division Name Role Phone Krysta Lockett Primary Care Provider [phone] Reason for Referral * Consultation (Routine) - Authorized Specialty Diagnoses / Procedures Referred By Contreras donald Referred To Contact Urology Diagnoses Erectile dysfunction, unspecified erectile dysfunction type Krysta Lockett FNP [address] [place] [address] Phone: tel: fax: [facility] [address] [place] [address] Drive [address] [place], [place] Phone: tel: fax: Referral ID Status Reason Start Date Expiration Date Visits Requested Visits Authorized [id number] Authorized Specialty Services Required 03/01/2025 03/01/2026 1 1 Reason for Visit * Reason Comments Follow-up Follow up in about 4 weeks (around 02/16/2025) for elevated blood sugars, and bp . Encounter Details Date Type Department Care Team (Late st Contact Info) Description 02/28/2025 10:15 AM EDT Office Visit [facility] [address] [place], [place] [phone] Krysta Lockett FNP [address] [place], [place] [phone] Type 2 diabetes mellitus with hypoglycemia without coma, without long-term current use of insulin ([facility]) (Primary Dx); Erectile dysfunction, unspecified erectile dysfunction type Social History Tobacco Use Types Packs/Day Years Used Date Smoking Tobacco: Former Cigarettes Passive Smoke Exposure: Current Smokeless Tobacco: Never Alcohol Use Standard Drinks/Week Comments Not Currently 0 (1 standard drink = 0.6 oz pur e alcohol) Depression Answer Date Recorded Patient Health Questionnaire-9 Score 6 02/28/2025 Patient Health Questionnaire-9 Score 6 02/28/2025 Last PHQ-9: Questionnaire Data Not on file 0 02/28/2025 Housing Stability Answer Date Recorded What is your housing situation today? I have zoila keith 02/28/[address] you li ve. Do you have problems with any of the following? None of the above 02/28/2025 Food Insecurity Answer Date Recorded Within the past 12 months, y ou worried that your food would run out before you got money to buy more: Never True 02/28/2025 Within the past 12 months,th e food you bought just didn't last and you didn't have enough money to get more: Never True Transportation Answer Date Recorded In the past 12 months, has l ack of transportation kept you from medical appts, meetings, work or from getting things needed for daily living? No 02/28/2025 Utilities Answer Date Recorded In the past 12 months, has t he electric, gas, oil or water company threatened to shut off services in your home? No 02/28/2025 Depression Answer Date Recorded Patient Health Questionnaire-2 Score 2 02/28/2025 Internet Access Answer Date Recorded Internet Access Q1 Yes 02/28/2025 Internet Access Q2 Not on file 02/28/2025 Sex and Gender Information Value Date Recorded Sex Assigned at Male 09/07/2022 10:15 AM EDT Legal Sex Male 10:15 AM EDT Gender Identity Male 09/07/2022 10:15 AM EDT Sexual Orientation Straight 09/07/2022 10 :15 AM EDT documented as of this encounter Last Filed Vital Signs Vital Sign Reading Time Taken Comments Blood Pressure 158/80 02/28/2025 11:01 AM EDT Pulse 75 02/28/2025 10:33 AM EDT Temperature 36.3 ??C (97.3 ??F) 02/28/2025 10:33 AM E DT Respiratory Rate 18 02/28/2025 10:33 AM EDT Oxygen Saturation 99% 02/28/2025 10:33 AM EDT Inhaled Oxygen Concentration - - Weight 90.7 kg (200 lb) 02/28/2025 10:33 AM EDT Height 177.8 cm (5' 10 ) 02/28/2025 10:33 AM EDT Body Mass Index 28.7 02/28/2025 10:33 AM EDT documented in this encounter Progress Notes * [facility], FUEL CELL BUILDER - 02/28/2025 10:15 AM EDT SUBJECTIVE: Armando Gay is a 69 y.o. year old male with COPD, HTN, T2DM, CKD, venous insufficiency withhx of DVT/PE, hx of bariatric surgery who presents for chronic disease management. Denies recent illness, injury, or hospitalization. He is accompanied by his daughter who is his primary caregiver Acute Concerns: Erectile Dysfunction--patient has new relationship with female partner that he met in his day program. Inability to achieve or sustain erection. Interval History COPD- Stable on trelegy. Had follow up with [facility] pulmonology. UTD on chest CT screening for pulmonary nodule. Plan for 1 year follow up (01/2026) [id number] sugar readings elevated--170's. No current medications since bariatric surgery CKD-had follow-up with nephrology. No med changes. Cognitive impairement- MMSE 08/2024 <23 c/w MCI. brain MRI 10/2024 with no acute intracranial abnormalities, mild underlying microangiopathy and generalized cerebral volume loss. Labs from 06/2024 unremarkable including TSH, vitamin B12, vitamin D. CBC with mild chronic anemia hemoglobin 11.9. Patient was referred to [facility] neurology. Missed appointment. Today daughter reports persistent symptoms, not worsening. Episodes of acting like a child which are sometimes embarrassing to patient. For example, inappropriate laughter. Patient also requires prompting for ADLs such as pouring himself a glass of water or getting up to leave the room. Social History Social History Narrative Current living environment: lives alone, daughter goes daily-Attends adult day program which he enjoys Children: 6 adult children, Shasta is daughter and helps him Tobacco Use: None Alcohol Use: None Marijuana Use: None Other drug use: None Patient Active Problem List Diagnosis Anemia of chronic disease Chronic obstructive lung disease (CMS/HCC) Hypertensive disorder Memory impairment Mood disorder ([facility]) Stage 3 chronic kidney disease ([facility]) Type 2 diabetes mellitus ([facility]) Gait instability History of DVT (deep vein thrombosis) Gastroesophageal reflux disease without esophagitis Hyperlipidemia associated with type 2 diabetes mellitus ([facility]) Osteoarthritis of knee Venous insufficiency Status post bariatric surgery Healthcare maintenance Acquired lymphedema of lower extremity Elevated blood pressure reading Exercise counseling Past Surgical History: Procedure Laterality Date BARIATRIC SURGERY No family history on file. Review of Systems Constitutional: Negative for activity change, diaphoresis, fatigue, fever and unexpected weight change. Eyes: Negative for visual disturbance. Respiratory: Negative for apnea, cough, chest tightness and shortness of breath. Cardiovascular: Negative for chest pain, palpitations and leg swelling. Gastrointestinal: Negative for abdominal pain and nausea. Neurological: Negative for dizziness, syncope, light-headedness and headaches. Psychiatric/Behavioral: Positive for behavioral problems. OBJECTIVE: Vitals: 02/28/25 1033 02/28/25 1101 BP: (!) 167/75 (!) 158/80 BP Location: Right arm Patient Position: Sitting BP Cuff Size: Adult long Pulse: 75 Resp: 18 Temp: 97.3 ??F (36.3 ??C) TempSrc: Temporal SpO2: 99% Weight: 200 lb (90.7 kg) Height: 5' 10 (1.778 m) Physical Exam Constitutional: Appearance: Normal appearance. HENT: Head: Normocephalic. Right Ear: External ear normal. Left Ear: External ear normal. Nose: Nose normal. Eyes: Conjunctiva/sclera: Conjunctivae normal. Cardiovascular: Rate and Rhythm: Normal rate and regular rhythm. Heart sounds: Normal heart sounds. Pulmonary: Effort: Pulmonary effort is normal. Breath sounds: Normal breath sounds. Musculoskeletal: Right lower leg: No edema. Left lower leg: No edema. Skin: General: Skin is warm and dry. Capillary Refill: Capillary refill takes less than 2 seconds. Neurological: General: No focal deficit present. Mental Status: He is alert and oriented to person, place, and time. Psychiatric: Mood and Affect: Mood normal. Behavior: Behavior normal. ASSESSMENT/PLAN T2DM Lab Results Component Value Date HGBA1C 6.0 01/19/2025 HGBA1C 5.5 06/28/2024 HGBA1C 5.5 12/08/2023 Lab Results Component Value Date MICROALBUR 72.0 12/08/2023 CREATININE 1.39 03/13/2024 - Restart trulicity 0.75 mg once weekly - Due for foot exam at follow-up - Check status of eye exam at follow-up - Not currently on statin, discontinued after bariatric surgery. Will check fasting lipid panel - Not on aspirin, due to lifelong anticoagulation with Eliquis HTN - BP elevated in office, home readings well controlled -No current antihypertensive medications - Monitor x 2 weeks - RN BP CHEK2 weeks, if home readings elevated would consider restarting TERESE or ARB--plan to consult with nephrology Reviewed ED precautions to include chest pain, shortness of breath, severe headache, sudden vision changes or BP >=180/>=120 mmHg. Contact HC if three or more BP readings >140/90. Mild cognitive impairment/behavior concern - Concern for possible vascular dementia - Patient oriented x 3 in office - He does not seem to have significant impairment with short or long-term memory, however he does require prompting for basic tasks -Daughter was provided with referral information and contact number for [facility] neurology and she will reach out to reschedule initial appointment - Behavioral health contacted during visit and completed intake in office with plan for upcoming psychiatry appointment Erectile dysfunction - S/t multiple chronic health conditions - Will trial as needed sildenafil - Referral to urology Follow Up: 2 weeks RN BP check Current Outpatient Medications on File Prior to Visit Medication Sig Dispense Refill acetaminophen (Tylenol Extra Strength) 500 MG tablet Take 2 tablets (1,000 mg) by mouth every 6 (six) hours if needed for moderate pain. 30 tablet 1 ascorbic acid (Vitamin C) 250 MG chewable tablet TAKE 1 TABLET BY MOUTH EVERY MORNING WITH IRON (CHEW) 90 tablet 1 Blood Pressure kit 1 kit 1 (one) time per week. 1 kit 0 Continuous Glucose Rabbit Breeder (FreeStyle Igles[place] 2 [place]) device Scan sensor every 8 hours 1 each 0 Continuous Glucose Sensor (FreeStyle Iglesia 2 Sensor) [facility] Apply 1 sensor every 14 days 2 each 2 Diclofenac Sodium 1 % gel Apply topically to affected areas twice daily 150 g 1 Eliquis 5 MG tablet TAKE 1 TABLET BY MOUTH TWICE DAILY ONCE EVERY MORNING AND ONCE EVERY NIGHT AT BEDTIME 60 tablet 3 FeroSul 325 (65 Fe) MG tablet TAKE 1 TABLET BY MOUTH EVERY MORNING 90 tablet 1 fluticasone (Flonase) 50 MCG/ACT nasal spray USE 2 SPRAYS IN EACH NOSTRIL EVERY DAY 48 g 1 Fluticasone-Salmeterol 100-50 MCG/ACT aerosol powder INHALE 1 PUFF TWICE DAILY. RINSE MOUTH AFTER USING. 60 each 11 folic acid (Folvite) 1 MG tablet TAKE 1 TABLET BY MOUTH EVERY MORNING 90 tablet 1 gabapentin (Neurontin) 100 MG capsule TAKE 1 CAPSULE BY MOUTH AT BEDTIME 30 capsule 3 glucose 4 g chewable tablet Chew 4 tablets (16 g) if needed for low blood sugar. 50 tablet 12 lidocaine (Lidoderm) 5 % patch Apply topically to affected areas. Leave on for up to 12 hours 30 patch 1 loratadine (Claritin) 10 MG tablet TAKE 1 TABLET BY MOUTH EVERY DAY 90 tablet 1 midodrine (Proamatine) 2.5 MG tablet TAKE 1 TABLET BY MOUTH TWICE DAILY IN THE MORNING AND AT BEDTIME 60 tablet 3 omeprazole (PriLOSEC) [address] capsule TAKE 1 CAPSULE BY MOUTH EVERY MORNING BEFORE A MEAL 90 capsule 1 Spiriva HandiHaler 18 MCG inhalation capsule USE 1 CAPSULE FOR INHALATION ONCE A DAY DO NOT SWALLOWCAPSULE 30 capsule 11 traMADol (Ultram) 50 MG tablet TAKE 1 TABLET BY MOUTH EVERY TWELVE HOURS traZODone (Desyrel) 100 MG tablet TAKE 1 TABLET BY MOUTH AT BEDTIME 30 tablet 5 [DISCONTINUED] Dulaglutide (Trulicity) 0.75 MG/0.5ML solution auto-injector Inject 0.75 mg under the skin 1 (one) time per week. 2 mL 1 No current facility-administered medications on file prior to visit. Bulgarian Translation: Provided by patient's daughter with his consent documented in this encounter Plan of Treatment Upcoming Encounters Date Type Department Care Team (Late st Contact Info) Description 03/14/2025 10:00 AM EDT Clinical Support [facility] [address] [place] [phone] Scheduled Referrals Name Type Priority Associated Diagnoses Orde r Schedule Referral to Urology Outpatient Referral Routine Erectile dysfunction, unspecified erectile dysfunction type Expected: 03/01/2025 (Approximate), Expires: 03/01/2026 documented as of this encounter Procedures Procedure Name Priority Date/Time Associated Diagnosis Comments CBC WITH AUTO DIFFERENTIAL Routine 03/01/2025 2:50 PM EDT Type 2 diabetes mellitus with hypoglycemia without coma, without long-term current use of insulin ([facility]) LIPID PANEL, STANDARD Routine 03/01/2025 2:50 PM EDT Type 2 diabetes mellitus with hypoglycemia without coma, without long-term current use of insulin ([facility]) COMPREHENSIVE METABOLIC PANEL Routine 03/01/2025 2:50 PM EDT Type 2 diabetes mellitus with hypoglycemia without coma, without long-term current use of insulin ([facility]) POCT GLUCOSE Routine 02/28/2025 10:34 AM EDT Type 2 diabetes mellitus with hypoglycemia without coma, without long-term current use of insulin ([facility]) documented in this encounter Results * Lipid Panel, Standard (03/01/2025 2:50 PM EDT) Triglycerides 57 <150 mg/dL [facility] Comment:Desirable Triglyceri de: less than 150 mg/dLBorderline High Triglyceride 150-199 mg/dLHigh Triglyceride: 200-499 mg/dLVery High Triglyceride: greater than or equal to 5OO mg/dL Cholesterol 177 <200 mg/dL [facility] Comment:Desirable Cholestero l: less than 200 mg/dLBorderline High Cholesterol: 200-239 mg/dLHigh Cholesterol: greater than 239 mg/dL LDL Cholesterol Calculated 94 <100 mg/dL [facility] Comment:Desirable LDL: less than 100 mg/dLNear Optimal/Above Optimal LDL: 110- 129 mg/dLBorderline High LDL: 130-159 mg/dLHigh LDL: 160-189 mg/dLVery High LDL: greater than or equal to 190 mg/dL HDL Cholesterol 72 >40 mg/dL [facility] Comment:Desirable HDL: great er than 40 mg/dL Note: This HDL assay may give artificially low results in patients with liver disease. Blood Venous blood specimen / Unknown 03/01/2025 2:50 PM EDT 03/01/2025 3:55 PM EDT [facility] FUEL CELL BUILDER LAB BLOOD ORDERABLES Final Re sult [facility] [address] [place], [place] [phone] * (ABNORMAL) CBC auto differential (03/01/2025 2:50 PM EDT) White Blood Count 4.8 4.8 - 10.8 X10*3/uL [facility] Red Blood Count 4.14(L) 4.60 - 5.80 X10*6/uL [facility] Hemoglobin 12.7(L) 14.0 - 18.0 g/dl [facility] Hematocrit 40.2(L) 42.0 - 52.0 % [facility] Mean Corpuscular Volume 97.1 80.0 - 98.0 fL [facility] Mean Corpuscular Hemoglobin 30.7 27.0 - 33.0 pg [facility] Mean Corpuscular HGB Conc 31.6 31.0 - 36.0 g/dl [facility] Red Cell Distribution Width 11.9 11.0 - 16.0 % [facility] Platelet Count 238 160 - 400 X10*3/uL [facility] Mean Platelet Volume 9.9 9.4 - 12.4 fL [facility] Neutrophils Percent Auto 56.2 45 - 73 % [facility] Imm Gran Pct Auto 0.0 0.0 - 0.4 % [facility] Lymphocytes Percent Auto 33.1 20 - 40 % [facility] Monocytes Percent Auto 6.8 2 - 11 % [facility] Eosinophils Percent Auto 3.1 0 - 4 % [facility] Basophils Percent Auto 0.8 0 - 2 % [facility] NRBC Pct Auto 0.0 0.0 - 0.2 /100WBC [facility] Neutrophils Absolute Auto 2.7 2.0 - 8.3 x10*3/uL [facility] Imm Gran Abs Auto 0.00 0.00 - 0.03 X10*3/uL [facility] Lymphocytes Absolute Auto 1.6 1.2 - 4.9 X10*3/uL [facility] Monocytes Absolute Auto 0.3 0.1 - 1.2 X10*3/uL [facility] Eosinophils Absolute Auto 0.2 0.0 - 0.4 X10*3/uL [facility] Basophils Absolute Auto 0.0 0.0 - 0.2 X10*3/uL [facility] NRBC Abs Auto 0.000 0.0 - 0.012 X10*3/uL [facility] Blood Venous blood specimen / Unknown 03/01/2025 2:50 PM EDT 03/01/2025 3:55 PM EDT [facility] LAB BLOOD ORDERABLES Final Re sult [facility] [address] [place] [phone] * (ABNORMAL) Comprehensive Metabolic Panel (03/01/2025 2:50 PM EDT) Sodium 140 135 - 145 mmol/L [facility] Potassium 4.4 3.3 - 5.1 mmol/L [facility] Chloride 105 96 - 108 mmol/L [facility] Carbon Dioxide 29 22 - 29 mmol/L [facility] Anion Gap 10(L) 12 - 20 [facility] Urea Nitrogen (BUN) 15 9 - 16 mg/dL [facility] Creatinine, Serum 1.39 0.5 - 1.4 mg/dL [facility] Estimated Glomerular Filt Rate 51 [facility] Comment:Chronic Kidney Disea se: Estimated GFR < 60 mL/min/1.76e9Hdpojx Kidney Disease: Estimated GFR < 15 mL/min/1.73m2 Glucose 120(H) 60 - 115 mg/dL [facility] Calcium 9.2 8.4 - 10.2 mg/dL [facility] Bilirubin, Total 0.7 0.0 - 1.0 mg/dL [facility] Aspartate Amino Transferase 28 5 - 37 U/L [facility] Alanine Aminotransferase 14 0 - 40 U/L [facility] Total Protein 6.7 6.5 - 8.0 g/dL [facility] Albumin Level 3.7 3.5 - 5.0 g/dL [facility] Alkaline Phosphatase 110 39 - 117 U/L [facility] Blood Venous blood specimen / Unknown 03/01/2025 2:50 PM EDT 03/01/2025 3:55 PM EDT [facility] BLOOD ORDERABLES Final Re sult [facility] [address] [place] [phone] * (ABNORMAL) POCT Glucose (02/28/2025 10:34 AM EDT) Glucose Blood, POC 195(A) 60 - 200 mg/dL QC Media Lot # [id number] Lot# Expiration Date [id number] Blood Capillary blood specimen / Unknown 02/28/2025 10:34 AM EDT [facility] POINT OF CARE TEST ENTER/EDIT ORDERABLES Final Result documented in this encounter Visit Diagnoses Diagnosis Type 2 diabetes mellitus with hypoglycemia without coma, without long-term current use of insulin ([facility])- Primary Erectile dysfunction, unspecified erectile dysfunction type documented in this encounter Additional Health Concerns Assessment Noted Time PHQ-9 Depression Total Score: 6 02/29/20 25 11:37 AM EDT documented as of this encounter Care Teams Pipeline Superintendent Division Relationship Specialty Start Date End Date [facility] [address] [place] [address] PCP - General Family Medicine 10/27/22 documented as of this encounter
--- OUTSIDE RECORDS SUMMARY | 2025-03-01 17:32 | XMS_ITS | Encounter Summary ---
Author Organization [employer] Address [address] [facility] [address] [place] [address] Care Team Providers Care Para Professional Name Role Phone Krysta Lockett VACUUM CLOSING MACHINE OPERATOR Primary Care Provider [phone] Encounter Details Date Type Department Care Team (Latest Contact Info) Description 02/28/2025 Travel Social History Tobacco Use Types Packs/Day [...] housing situation today? I have zoila parker 02/28/[address] you li [...] Description 03/14/2025 10:00 AM EDT Clinical Support [facility] [address] [place] [address] documented as of this encounter Visit Diagnoses Not on filedocumented in this encounter Additional Health Concerns Assessment Noted Time PHQ-9 Depression Total Score: 6 02/29/20 25 11:37 AM EDT documented as of this encounter Care Teams Para Professional Relationship Specialty Start Date End Date Krysta Lockett FNP [address] [place] [address] PCP - General Family Medicine 10/27/22 documented as of this encounter
--- OUTSIDE RECORDS SUMMARY | 2025-03-01 17:32 | XMS_ITS | Encounter Summary ---
Author Organization [employer] Address [address] [facility] [address] [place] [address] Care Team Providers Care Brake Drum Lathe Operator Name Role Phone Krysta Lockett CUSTOMS EXAMINER Primary Care Provider [phone] Encounter Details Date Type Department Care Team (Late st Contact Info) Description 09/24/2023 Abstract [facility] [address] [place], [place] [phone] Richa Rehman Social History Tobacco Use Types [...] Description 03/14/2025 10:00 AM EDT Clinical Support [facility] [address] [place] [address] documented as of this encounter Visit Diagnoses Not on filedocumented in this encounter Additional Health Concerns Assessment Noted Time PHQ-9 Depression Total Score: 0 12/21/19 23 10:22 AM EST documented as of this encounter Care Teams Brake Drum Lathe Operator Relationship Specialty Start Date End Date Krysta Lockett FNP [address] [place] [address] PCP - General Family Medicine 10/27/22 documented as of this encounter
--- OUTSIDE RECORDS SUMMARY | 2025-03-01 17:32 | XMS_ITS | Clinical Summary ---
Author Organization [facility] ity Address [address] [place] [address] Care Team Providers Care Wildlife Conservation Professor Name Role Phone Unavailable Primary Care Provider [...] - 2023-2 5 season) 2024 Influenza Vaccine (Season Ended) 2025 RSV Immunization Adult Patie nts (1 - 1-dose 75+ series) 2031 HIB [...] age to complete this topic Meningococcal B Vaccine Aged Out No l onger eligible based on patient's age to complete this topic RSV Immunization Patients Un sally 20 months Aged Out No longer eligible b ased on patient's age to complete this topic Varicella Vaccines Aged Out No longer eligible based on patient's age to complete this topic
--- OUTSIDE RECORDS SUMMARY | 2025-03-01 17:32 | XMS_ITS | Clinical Summary ---
Author Organization [employer] Address [address] [place] [address] 7[address] [place] [address] Care Team Providers Care Rough Planer Tender Name Role Phone Krysta Lockett UR COORDINATOR Primary Care Provider [phone] Allergies Active Allergy Reactions Criticality Noted Date Comments Aspirin Itching 11/13/2010 Other reaction(s): Itching Nsaids 07/10/2021 Other reaction(s): Other (see comments) Penicillins Itching 11/13/2010 Other reaction(s): Itching Medications * This document contains information received from the source organization and may not represent a complete record from that organization. traMADol (Ultram) 50 MG tablet TAKE 1 [...] s:Chronic obstructive pulmonary disease, unspecified COPD type ([facility]) INHALE 1 PUFF TWICE DAILY. RINSE MOUTH AFTER USING. 60 each 11 01/28/20 24 Active glucose 4 g chewable tabletIndication s:Type 2 diabetes mellitus with hypoglycemia without coma, without long-term current use of insulin [place] Chew 4 tablets (16 g) if needed for low blood sugar. 50 tablet 12 06/28/20 24 025 Active Diclofenac Sodium 1 % gelIndications:O ther chronic pain Apply topically to affected areas twice daily 150 g 06/28/20 24 Active Continuous Glucose Sensor (FreeStyle Iglesia 2 Sensor) miscIndications: Type 2 diabetes mellitus with hypoglycemia without coma, without long-term current use of insulin ([facility] Apply 1 sensor every 14 days 2 each 2 06/30/20 24 Active Continuous Glucose Quality Assurance Qa Lab Analyst (FreeStyle Iglesia 2 [place]) deviceIndication s:Type 2 diabetes mellitus with hypoglycemia without coma, without long-term current use of insulin ([facility] Scan sensor every 8 hours 1 each 06/30/20 24 Active folic acid (Folvite) 1 MG tabletIndication s:Stage 3a chronic kidney disease ([facility] TAKE 1 TABLET BY MOUTH EVERY MORNING [...] other vein of lower extremity, unspecified laterality ([facility]) TAKE 1 TABLET BY MOUTH TWICE DAILY ONCE EVERY MORNING AND ONCE EVERY NIGHT AT BEDTIME 60 tablet 3 11/24/19 25 Active Blood Pressure kitIndications:E levated blood pressure reading 1 kit 1 (one) time per week. 1 kit 01/20/20 25 Active Dulaglutide (Trulicity) 0.75 MG/0.5ML solution auto-injectorInd ications:Type 2 diabetes mellitus with hypoglycemia without coma, without long-term current use of insulin ([facility]) Inject 0.75 mg under the skin 1 (one) time per week. 2 mL 1 02/29/20 25 026 Active sildenafil (Viagra) 25 MG tabletIndication s:Erectile dysfunction, unspecified erectile dysfunction type Take 1 tablet (25 mg) by mouth if needed each day for erectile dysfunction. 1 hour before sexual activity 30 tablet 02/29/20 25 025 Active Zepbound 2.5 MG/0.5ML solution auto-injectorInd ications:Type 2 diabetes mellitus with hypoglycemia without coma, without long-term current use of insulin ([facility]) Inject 0.5 mL (2.5 mg) under the skin 1 (one) time per week for 28 days. 2 mL 01/23/20 25 025 Dulaglutide (Trulicity) 0.75 MG/0.5ML solution auto-injectorInd ications:Type 2 diabetes mellitus without complication, without long-term current use of insulin ([facility]) Inject 0.75 mg under the skin 1 (one) time per week. 2 mL 1 02/28/20 25 025 Discontinu ed(Ineffec tive) Active Problems Problem Noted Date Diagnosed Date Mild depression 02/28/2025 Elevated blood pressure reading 02/27/2025 Assessment & Plan (02/27/2025 1:01 PM EDT): Above goal today, bp cuff sent for ongoing monitoring Exercise counseling 02/27/2025 Acquired lymphedema of lower extremity Assessment & Plan (05/28/2023 3:19 PM EDT): [...] no improvement -gave today to pt # [phone] of his vascular office to call and reschedule apt --I called today as well Dr Beckham's office and left my phone number for a call back from vascular -referred to cards to r/o cardiac etiology -tylenol prn x pain in legs -raise legs -continue use of pneumatic compression -alarm signs and symptoms explained Venous insufficiency 12/23/2022 Overview (12/23/2022): ?? Followed by [facility] vascular ?? Negative [...] thrombosis) 12/15/2022 Overview (12/23/2022): ?? Followed by [facility] Dr. Beckham; 09/22/2022-dx [...] NSR no ischemic findings -referred today to materials assistant x complete eval of echocardiogram x orthopnea [...] post prandial goal: <180 Assessment & Plan (02/27/2025 1:03 PM EDT): Pt with diet controlled type II DIABETES MELLITUS, increased weight gain and notes elevated sugars however, hgb A1c remains at goal Post bariatric surgery Will trial zepbound as pt is not currently hyperglycemic Consider trulicity if sugars increase. Side effects reviewed Uncertain if med will be covered Assessment & Plan (12/17/2023 5:53 PM EST): [...] type 2 diabetes mellitus 12/13/2015 12/23/2022 Encounters * This document contains information received from the source organization and may not represent a complete record from that organization. Date Type Department Care Team Description 02/28/2025 10:15 AM EDT Office Visit [facility] [address] [place] [address] [facility] Type 2 diabetes mellitus with hypoglycemia without coma, without long-term current use of insulin ([facility]) (Primary Dx); Erectile dysfunction, unspecified erectile dysfunction type 02/28/2025 Travel 01/26/2025 Telephone [facility] [address] [place] [address] [facility] Zepbound [place] 01/19/2025 3:30 PM EDT Office Visit [facility] [address] [place] [address] Kadie Salazar NP Elevated blood pressure reading (Primary Dx); Type 2 diabetes mellitus without complication, without long-term current use of insulin (CMS/HCC); Dietary counseling; Exercise counseling 01/19/2025 Refill [facility] [address] [place] [address] Kadie Salazar NP Type 2 diabetes mellitus with hypoglycemia without coma, without long-term current use of insulin ([facility]) 01/19/2025 Travel 01/17/2025 Telephone [facility] [address] [place] [address] The RockKrysta duong FNP Nurse Triage 12/29/2024 Orders Only [facility] External Provider, [facility] from Last 3 Months Immunizations Name Administration [...] your housing situation today? I have zoila sing 02/28/[address] you li [...] Mass Index 28.7 02/28/2025 10:33 AM EDT Plan of Treatment Upcoming Encounters Date Type Department Care Team (Late st Contact Info) Description 03/14/2025 10:00 AM EDT Clinical Support [facility] [address] [place] [address] Health Maintenance Due Date Last Done Comments CT Colonography 1955 FIT DNA/Cologuard 1955 FIT 1955 FOBT 1955 Sigmoidoscopy 1956 Diabetes: Foot Exam 1966 Eye Exam 1966 Alcohol/Substance Use Screening 1968 RSV Patients and Patients Aged 60 years or older (1 - Risk 60-74 years 1-dose series) 2016 Colonoscopy 07/18/2022 07/18/2019 Colorectal Cancer Screening 07/18/2022 Lipid Panel 04/26/2024 03/01/2025, 04/08, 12/15/2022, Additional history exists Diabetes: Urine Protein Screening 03/13/2025 03/13/2024, 12/08/2023, 04/23/2021, Additional history exists Diabetes: Hemoglobin A1C 07/22/2025 025, 06/28/2024, 12/08/2023, Additional history exists Depression Screening 02/28/2026 02/28/2025, 02/29/20 25 SDOH Screening 02/28/2026 02/28/2025 Tobacco Screening 03/01/2026 03/01/2025 DTaP/Tdap/Td Vaccines (3 - Td or Tdap) [...] Procedure Name Priority Date/Time Associated Diagnosis Comments LIPID PANEL, STANDARD Routine 03/01/2025 2:50 PM EDT Type 2 diabetes mellitus with hypoglycemia without coma, without long-term current use of insulin (CMS/HCC) CBC WITH AUTO DIFFERENTIAL Routine 03/01/2025 2:50 PM EDT Type 2 diabetes mellitus with hypoglycemia without coma, without long-term current use of insulin (CMS/HCC) COMPREHENSIVE METABOLIC PANEL Routine 03/01/2025 2:50 PM EDT Type 2 diabetes mellitus with hypoglycemia without coma, without long-term current use of insulin (CMS/HCC) POCT GLUCOSE Routine 02/28/2025 10:34 AM EDT Type 2 diabetes mellitus with hypoglycemia without coma, without long-term current use of insulin (CMS/HCC) POCT GLYCATED HEMOGLOBIN, TOTAL Routine 01/19/2025 4:25 PM EDT Type 2 diabetes mellitus without complication, without long-term current use of insulin (CMS/HCC) POCT GLUCOSE Routine 01/19/2025 3:54 PM EDT Type 2 diabetes mellitus without complication, without long-term current use of insulin (CMS/HCC) CT CHEST WO CONTRAST Routine 01/01/2025 12:44 PM EST PROTEIN CREATININE RATIO, URINE Routine 03/13/2024 9:57 AM EDT HEPATITIS C AB W/REFL TO HCV RNA, QN, PCR Routine 12/15/2022 9:44 AM EST Healthcare maintenance HM COLONOSCOPY Routine 07/18/2019 7:44 AM EDT from Last 3 Months or Most Recently Relevant to Health Maintenance Results * (ABNORMAL) CBC auto differential (03/01/2025 2:50 PM EDT) White Blood Count 4.8 4.8 - 10.8 X10*3/uL [facility] Red Blood Count 4.14(L) 4.60 - 5.80 X10*6/uL [facility] Hemoglobin 12.7(L) 14.0 - 18.0 g/dl [facility] Hematocrit 40.2(L) 42.0 - 52.0 % [facility] Mean Corpuscular Volume 97.1 80.0 - 98.0 fL [facility] Mean Corpuscular Hemoglobin 30.7 27.0 - 33.0 pg [facility] Mean Corpuscular HGB Conc 31.6 31.0 - 36.0 g/dl [facility] Red Cell Distribution Width 11.9 11.0 - 16.0 % [facility] Platelet Count 238 160 - 400 X10*3/uL [facility] Mean Platelet Volume 9.9 9.4 - 12.4 fL [facility] Neutrophils Percent Auto 56.2 45 - 73 % [facility] Imm Gran Pct Auto 0.0 0.0 - 0.4 % [facility] Lymphocytes Percent Auto 33.1 20 - 40 % [facility] Monocytes Percent Auto 6.8 2 - 11 % [facility] Eosinophils Percent Auto 3.1 0 - 4 % [facility] Basophils Percent Auto 0.8 0 - 2 % [facility] NRBC Pct Auto 0.0 0.0 - 0.2 /100WBC [facility] Neutrophils Absolute Auto 2.7 2.0 - 8.3 x10*3/uL [facility] Imm Gran Abs Auto 0.00 0.00 - 0.03 X10*3/uL [facility] Lymphocytes Absolute Auto 1.6 1.2 - 4.9 X10*3/uL [facility] Monocytes Absolute Auto 0.3 0.1 - 1.2 X10*3/uL [facility] Eosinophils Absolute Auto 0.2 0.0 - 0.4 X10*3/uL [facility] Basophils Absolute Auto 0.0 0.0 - 0.2 X10*3/uL [facility] NRBC Abs Auto 0.000 0.0 - 0.012 X10*3/uL [facility] Blood Venous blood specimen / Unknown 03/01/2025 2:50 PM EDT 03/01/2025 3:55 PM EDT [facility] LAB BLOOD ORDERABLES Final Re sult [facility] [address] [place] [address] [phone] * Lipid Panel, Standard (03/01/2025 2:50 PM EDT) Triglycerides 57 <150 mg/dL [facility] Comment:Desirable Triglyceri de: less than 150 mg/dLBorderline High Triglyceride 150-199 mg/dLHigh Triglyceride: 200-499 mg/dLVery High Triglyceride: greater than or equal to 5OO mg/dL Cholesterol 177 <200 mg/dL [facility] Comment:Desirable Cholestero l: less than 200 mg/dLBorderline High Cholesterol: 200-239 mg/dLHigh Cholesterol: greater than 239 mg/dL LDL Cholesterol Calculated 94 <100 mg/dL [facility] Comment:Desirable LDL: less than 100 mg/dLNear Optimal/Above Optimal LDL: 110- 129 mg/dLBorderline High LDL: 130-159 mg/dLHigh LDL: 160-189 mg/dLVery High LDL: greater than or equal to 190 mg/dL HDL Cholesterol 72 >40 mg/dL [facility] Comment:Desirable HDL: great er than 40 mg/dL Note: This HDL assay may give artificially low results in patients with liver disease. Blood Venous blood specimen / Unknown 03/01/2025 2:50 PM EDT 03/01/2025 3:55 PM EDT [facility] LAB BLOOD ORDERABLES Final Re sult Performing Organization Address City/[facility] Co de Phone Number [facility] [address] [place] [address] [phone] * (ABNORMAL) Comprehensive Metabolic Panel (03/01/2025 2:50 PM EDT) Sodium 140 135 - 145 mmol/L [facility] Potassium 4.4 3.3 - 5.1 mmol/L [facility] Chloride 105 96 - 108 mmol/L [facility] Carbon Dioxide 29 22 - 29 mmol/L [facility] Anion Gap 10(L) 12 - 20 [facility] Urea Nitrogen (BUN) 15 9 - 16 mg/dL [facility] Creatinine, Serum 1.39 0.5 - 1.4 mg/dL [facility] Estimated Glomerular Filt Rate 51 [facility] Comment:Chronic Kidney Disea se: Estimated GFR < 60 mL/min/[id number] Kidney Disease: Estimated GFR < 15 mL/min/1.73m2 Glucose 120(H) 60 - 115 mg/dL [facility] Calcium 9.2 8.4 - 10.2 mg/dL [facility] Bilirubin, Total 0.7 0.0 - 1.0 mg/dL [facility] Aspartate Amino Transferase 28 5 - 37 U/L [facility] Alanine Aminotransferase 14 0 - 40 U/L [facility] Total Protein 6.7 6.5 - 8.0 g/dL [facility] Albumin Level 3.7 3.5 - 5.0 g/dL [facility] Alkaline Phosphatase 110 39 - 117 U/L [facility] Blood Venous blood specimen / Unknown 03/01/2025 2:50 PM EDT 03/01/2025 3:55 PM EDT [facility] LAB BLOOD ORDERABLES Final Re sult [facility] [address] [place] [address] [phone] * (ABNORMAL) POCT Glucose (02/28/2025 10:34 AM EDT) Only the most recent of2 resultswithin the time period is included. Glucose Blood, POC 195(A) 60 - 200 mg/dL QC Media Lot # [id number] Lot# Expiration Date 101,425 Blood Capillary blood specimen / Unknown 02/28/2025 10:34 AM EDT [facility] UR COORDINATOR POINT OF CARE TEST ENTER/EDIT ORDERABLES Final Result * POCT HGB A1C (01/19/2025 4:25 PM EDT) Hemoglobin A1C 6.0 4.0 - 6.0 % QC Media Lot # [id number] Lot# Expiration Date [id number] Blood 01/19/2025 4:25 PM EDT Kadie Salazar NP POINT OF CARE TEST ENTER/EDIT OR DERABLES Final Result * CT Chest w/o Contrast (01/01/2025 12:44 PM EST) Anatomical Region Laterality Modality Body, Chest Computed Tomogra phy 01/01/2025 12:4 4 PM EST Narrative 01/01/2025 12:45 PM EST ? [facility] ?[address] ?[place] [address] ? CT Scan Report ? Signed ? Patient: Jaron Gay,Armando ?MR#: [id number] ?? [id number] ? : 1955 ?Acct:[id number] ? Age/Sex: 69 / M ?ADM Date: 02/21/25 ? Loc: HO.CT ? Attending Dr: Grabiel Roldan MD ? Ordering Physician: Grabiel Roldan MD ?? Date of Service: 12/29/24 ?? Procedure(s): CT chest wo IV con ?? Accession Number(s): [id number] ? cc: Grabiel Roldan MD; Krysta Lockett UR COORDINATOR ? Report Number: ?? [id number]: Total DLP = ??182.00 mGy-cm ? CLINICAL HISTORY: R91.8 - Other nonspecific abnormal finding of lung field ? CT chest without contrast ? Comparison: CT/IL/SR - CT CHEST WO IV CON - [...] DD/ 1244 ? TD/TT: 01/01/25 1244 ? Flask Fitter: ? Procedure Note Lachelle, Image - 01/01/[address] [place] [address] [address] Scan Report Signed Patient: Armando BaMR#: [id number] : 6Acct:[id number] Age/Sex: 69 / MADM Date: 12/29/24 Loc: HO.CT Attending Dr: Grabiel Roldan MD Ordering Physician: Grabiel Roldan MD Date of Service: 12/29/24 Procedure(s): CT chest wo IV con Accession Number(s): [id number] cc: Grabiel Roldan MD; Krysta Lockett UR COORDINATOR Report Number: [id number]: Total DLP = 182.00 mGy-cm CLINICAL HISTORY: R91.8 - Other nonspecific abnormal finding of lung field CT chest without contrast Comparison: CT/IL/SR - CT CHEST WO IV CON - [...] 01/01/25 1245 DD/ 1244 TD/TT: 01/01/25 1244 Flask Fitter: [facility] External Provider IMG CT PROCEDURES Final Result * (ABNORMAL) Protein Creatinine Ratio, Urine (03/13/2024 9:57 AM EDT) Creatinine, Urine 97.69 mg/dL [facility] Protein, Total, Random Urine 14(H) <12 mg/dL [facility] Protein/Creatin ine Ratio, Ur 0.14 <0.2 [facility] Comment:The spot urine prote in:creatinine ratio may increase to 0.3during normal . 03/13/2024 9:57 AM EDT 03/13/2024 11:31 AM EDT Generic External Data Provider LAB URINE ORDERAB LES Final Result [facility] [address] [place] [address] [phone] * Hepatitis C Antibody with Reflex to HCV, RNA, Quantitative, Real-Time PCR (12/15/2022 9:44 AM EST) Hepatitis C Antibody NON-REACT SIDDHARTH NON-REACT SIDDHARTH [facility] Index <0.02 <1.00 [facility] Comment: HCV antibody was non-reactive. There is no laboratory evidence of HCV infection. In most cases, no further action is required. However, if recent HCV exposure is suspected, a test for HCV RNA (test code 09697) is suggested. For additional information please refer to http://education.[employer]/faq/BYT04e0 (This link is being provided for informational/ educational purposes only.) Blood Venous blood specimen / Unknown 12/15/2022 9:44 AM EST 12/15/2022 9:45 AM EST Narrative [facility] - 12/16/2022 2:26 PM EST FASTING:UNKNOWN FASTING: UNKNOWN [facility] UR COORDINATOR LAB BLOOD ORDERABLES Final Re sult [facility] [address], [place] [address] [facility] [place] [address] [facility], ([address]) [place] [address] * Hm Colonoscopy (07/18/2019 7:44 AM EDT) Historical Provider HEALTH MAINTENANCE Final Result from Last 3 Months or Most Recently Relevant to Health Maintenance Insurance [facility] USP OPTIONS (HMO D-SNP) Care Teams Rough Planer Tender Relationship Specialty Start Date End Date Krysta Lockett FNP [address] [place] [phone] PCP - General Family Medicine 10/27/22
--- OUTSIDE RECORDS SUMMARY | 2025-03-01 17:33 | XMS_ITS | Encounter Summary ---
Author Organization [employer] Address [address] [facility] [address] [place] [address] Care Team Providers Care Ice Cream Vault Worker Name Role Phone Krysta Lockett CHEMISTRY TECHNOLOGIST Primary Care Provider [phone] Encounter Details Date Type Department Care Team (Late st Contact Info) Description 02/16/2024 Orders Only [facility] [address] [place], [place] [phone] Provider, MD Larissa Social History Tobacco Use [...] Description 03/14/2025 10:00 AM EDT Clinical Support [facility] [address] [place] [address] documented as of this encounter Procedures Procedure Name Priority Date/Time Associated Diagnosis Comments US RENAL BI Routine 03/08/2024 12:37 PM EDT HM COLONOSCOPY Routine 07/18/2019 7:44 AM EDT documented in this encounter Results * US RENAL BI (03/08/2024 12:37 PM EDT) Anatomical Region Laterality Modality Abdomen Ultrasound 03/08/2024 12:3 7 PM EDT Narrative 03/10/2024 10:07 AM EDT ? [facility] ?[address] ?[place] [address] ? Ultrasound Report ? Signed ? Patient: Armando Ba ?MR#: [id number] ?? [id number] ? : 1955 ?Acct:[id number] ? Age/Sex: 68 / M ?ADM Date: 03/08/24 ? Loc: HO.US ? Attending Dr: Bladimir Le MD ? Ordering Physician: Bladimir Le MD ?? Date of Service: 03/08/24 ?? Procedure(s): US renal BI ?? Accession Number(s): [id number] ? cc: Bladimir Le MD; Krysta Lockett CHEMISTRY TECHNOLOGIST ? EXAMINATION: ?? US RETROPERITONEAL LIMITED [...] 1004 ? DD/ 1237 ? TD/TT: ? Language Asst: ImeldaK ? Procedure Note Donvenuslulupriscillater, Image - 03/10/2024 [place] [address] Ultrasound Report Signed Patient: Bandar Ba#: [id number] : 6Acct:[id number] Age/Sex: 68 / MADM Date: 03/08/24 Loc: HO.US Attending Dr: Bladimir Le MD Ordering Physician: Bladimir Le MD Date of Service: 03/08/24 Procedure(s): US renal BI Accession Number(s): [id number] cc: Bladimir Le MD; PrescottKrysta [facility] EXAMINATION: US RETROPERITONEAL LIMITED (RENAL ONLY) [...] in OV> 03/10/24 1004 DD/ 1237 TD/TT: Language Asst: ELAINE [facility] External Provider IMG US PROCEDURES Final Result * Hm Colonoscopy (07/18/2019 7:44 AM EDT) Historical Provider HEALTH MAINTENANCE Final Result documented in this encounter Visit Diagnoses Not on filedocumented in this encounter Additional Health Concerns Assessment Noted Time PHQ-9 Depression Total Score: 0 12/08/19 24 10:42 AM EST documented as of this encounter Care Teams Ice Cream Vault Worker Relationship Specialty Start Date End Date Krysta Lockett FNP [address] [place] [phone] PCP - General Family Medicine 10/27/22 documented as of this encounter
--- OUTSIDE RECORDS SUMMARY | 2025-03-01 17:33 | XMS_ITS | Data Portability ---
Author Organization [employer] in [employer] Address [address] [place] [address] Care Team Providers Care Public Records Officer Name Role Phone HIM CCA OTHER [facility] Primary Care Provider [phone] Assessment Encounter Date Assessment Date Assessment LastModified by Organization Details LastModified Time 01/19/2025 01/19/2025 I provided real -time medical direction via phone for this encounter and was available for additional phone-based assistance as needed. I have reviewed and agree with the Assessment and Plan as documented by the Hot Tar Roofer. Patient given the opportunity to ask questions. Our service contacted for an assessment of: elevated BG As per above, patient with elevated BG and went to see his doctor today to obtain blood work to see what medications he can be started on. He is eating and drinking normally. No polyuria, polydipsia or polyphagia. No unusual weight loss. Per gang bore operator on the scene, VSS, BG 157 Impression: [...] Assessment and Plan as documented by the Hot Tar Roofer. We discussed the diagnostic uncertainty of home [...] call 911- verbalized understanding of instructions vis jig hand [email or web address] Not available 01/23/2025 18:01:10 Plan of Treatment Reminders Order Date Submit Date Provider Last Modified By Organization Details Last Modified Time Details Appointments None recorded. Lab glucose, fingerstick , blood 2024 025 [email or web address] 0 [facility], [address] [place] [address], [phone] 17:26:47 urinalysis, dipstick [address], [phone] 09:16:17 glucose, fingerstick , blood [address], [address] 19:19:25 Referral None recorded. Procedures None recorded. Surgeries None recorded. Imaging None recorded. Medication Orders acetaminoph en 500 mg tablet 2024 025 [email or web address] 0 [id number], [address], [place], [phone], 17:34:06 Patient TargetsNo targets recorded. Patient InstructionsNo instructions recorded. Reason for Referral None Reported. Results Created Date Observation Date Name Description Value Unit Range Abnormal Flag Note LastModifiedBy Organization Detail LastModifiedTime 01/20/2001/19/2025 glucbrown newton se rstic k, blood Blood Glucose: mg/dl 157 Not Available [address], [phone] 01/19/2025 17:07:38 01/24/2001/23/2025 gluco ruel florese rstic k, blood Blood Glucose: mg/dl 118 Not Available [facility] - [facility] [address] [place] [address], [phone] 01/23/2025 17:26:29 Result Notes None recorded. Medical Equipment None Reported. Allergies Allergen ID Allergen Name Allergen Category Reaction Reaction Severity Criticality Documentation Date Start Date Code Code System Note Provider Name and Address Organization Details Recorded Time 89469 aspirin medicatio n Not available Not available Not available 01/17/2025 1191 RxNorm Not Available [facility] - production 16:33:47 68185 Product containin g penicilli n (product) medicatio n Not available Not available Not available 01/17/2025 44234 8001 SNOMED Not Available [facility] - production 16:33:47 56373 Non-stero idal anti-infl ammatory agent (product) medicatio n Not available Not available Not available 01/17/2025 22186 005 SNOMED Not Available [facility] - production [...] Updated DateTime 5 99 % 99 % 64041.4 8 g 177.8 cm 67 /min 16 /min 155 mm[Hg] 74 mm[Hg] Not Available [employer] 16:59:59 Date Recorded Body weight Body mass index (BMI) Provider Name and Address Organization Details Last Updated DateTime 01/23/2025 44357.55 g 27.3 kg/m2 Kerrie Kerr MD [address] [place] [address],[address] [facility], [place], [address], [place] - [employer] 01/23/2025 17:55:55 Date Recorded Respiratory rate Heart rate Body height Oxygen saturation Oxygen saturation in Arterial blood by Pulse oximetry Body temperature Systolic blood pressure Diastolic blood pressure Provider Name and Address Organization Details Last Updated DateTime 5 18 /min 64 /min 177.8 cm 98 % 98 % 98.7 [degF] 146 mm[Hg] 81 mm[Hg] Not Available [employer] 17:24:57 Social History None recorded. Functional Status None recorded. Mental Status None recorded. Family History Nothing Reported. Medical History No medical history recorded. Past Encounters Encounter ID Performer Location Encounter Start Date Encounter Closed Date Diagnosis/Indication Diagnosis SNOMED-CT Code Diagnosis ICD10 Code Diagnosis Note [id number] Sandra Olvera MD Main - [facility] [address] [place] [phone] 01/19/2025 16:25:38 01/22/2025 22:06:20 Hyperglycemia 26440224 R73.9 [id number] Kerrie Kerr MD Main - [facility] [address] [place] [phone] 01/23/2025 17:24:55 01/23/2025 19:49:59 Type 2 diabetes mellitus 32974646 E11.9 w/ mild headache- c/o urinary frequency [...] Jones Member ID Guarantor Name 01/19/2025 1 [facility] - DOS ON OR AFTER 2023 - DUAL ELIGIBLE - SHELTER OPTIONS AND ONE CARE (MEDICARE REPLACEMENT/ADV ANTAGE - HMO) Armando Gay [id number] Armando Gay 01/23/2025 1 [facility] - DOS ON OR AFTER 2023 - DUAL ELIGIBLE - SHELTER OPTIONS AND ONE CARE (MEDICARE REPLACEMENT/ADV ANTAGE - HMO) Armando Gay [id number] Armando Gay Notes Date Note Type Note [...] at 01/17/2025 - 16:33 Comments: HPI reviewed Hot Tar Roofer Organization Information for [employer] Legal Name: [employer]? Address: [address] [place] [address], Electromechanical Technologist: Andrew Woo MD ROSE No.: [id number] Hot Tar Roofer POC Test Results from [employer] Blood Glucose Measurement (17:03:58) Blood Glucose: 157 mg/dL ....................... ....................... ....................... ....................... ....................... ....................... ... Hot Tar Roofer Note From Waqas Wright: [facility] makes pt contact. He is standing in his doorway watching for [facility] arrival. He is generally well appearing and walks and moves w/o hinderance. No ashen or maguire color is noted, his chest rises and falls softly w/ respirations w/ no stridor or sonorous respirations present. No facial droop, one-sided weakness, or slurred speech are observed and he is not bleeding anywhere. Pt is Niuean-speaking only and daughter is on scene for [...] Pt consents to treatment and evaluation today. [facility] obtains pt consent, vital signs are gathered, and pt is assessed. Lung sounds are clear and equal to auscultation, abdomen is soft and nontender, w/ no guarding, distension, or pulsating masses, bilateral LE's have 1+ edema. FSBS is obtained and is 157. [facility] contacts [facility] and discusses the above. [facility] recommends pt wait on results of his lab work as his physical exam and vital signs are noted life-threatening or concerning at this time. [facility] informs pt to seek emergency room care if he develops a high fever, n/v/d he can't control, bloody emesis or stools, cp, or sob. Daughter translates and pt expresses his verbal understanding. [facility] is clear. Report completed by TUNDE Wright [id number]. [facility] Lab Orders: glucose, fingerstick, blood: Performed ....................... ....................... ....................... ....................... ....................... ....................... ... [facility] Consulted: Sandra Olvera ....................... ....................... ....................... ....................... ....................... ....................... ... Disposition: Fulfilled Sandra Olvera MD [address] [place] [address],[address], [place], [address], [employer] 01/19/2025 19:15:09 01/23/2025 text/html CRC Nurse Triage [...] - 16:07Allergies Reviewed at 01/23/2025 - 16:07Comments: Applied Anthropologist verified the patient's name//address and phone number. [...] s/s and seek emergency treatment if needed -H. ESTEE Mims Hot Tar Roofer Organization Information for Janice Pinedo Legal Name: [employer]?Address: [address] [place] [address], Medical Director: Andrew Woo [facility] No.: [id number] Hot Tar Roofer POC Test Results from [employer] Blood [...] - 16:07Allergies Reviewed at 01/23/2025 - 16:07Comments: Applied Anthropologist verified the patient's name//address and phone number. [...] s/s and seek emergency treatment if needed -H. ESTEE Mims Hot Tar Roofer Organization Information for Janice Pinedo Legal Name: [employer]?Address: [address] [place] [address], USMedical Director: Andrew Woo [facility] No.: [id number] Hot Tar Roofer POC Test Results from Janice Pinedo - [facility] Blood Glucose Measurement (17:22:03)Blood Glucose: 118 [...] ....................... ....................... ....................... ....................... ....................... ....................... ... Hot Tar Roofer Note From Janice Pinedo: Sent to a call for a pt complaining of high blood sugar. [facility] arrives on scene, pt is alert and oriented, airway is patent. Pt speaks Niuean, and pt's daughter (via phone) serves as jig hand. Pt complains of high blood sugar x [...] unremarkable; Extremities: unremarkable; Skin: pink, warm, dry; [facility] consulted and orders urine dip and Tylenol 1gm PO. Pt advised not to exceed Tylenol 3gms daily. Urine sample obtained via clean catch; Urine dip results: uploaded to [email or web address]; Tylenol 1gm PO administered without incident. Pt is advised to eat protein with carbs, avoid fried foods, and given food alternatives for better diabetic diet. Pt is reassured urine has no glucose or ketones. Pt is advised to follow up with PCP regarding treatment plan. Red flags discussed. Pt/family has no further questions. [facility] Lab Orders: glucose, fingerstick, blood: Performed urinalysis, dipstick: Performed [facility] Medication Orders: acetaminophen 500 mg tablet: Administered ....................... ....................... ....................... ....................... ....................... ....................... ... [facility] Consulted: Kerrie Kerr ....................... ....................... ....................... ....................... ....................... ....................... ... Disposition: Fulfilled Kerrie Kerr MD [address] [facility],[address], [place], [address], PK - DIANE, DARREN 01/23/2025 19:12:43
--- OUTSIDE RECORDS SUMMARY | 2025-03-01 17:33 | XMS_ITS | Encounter Summary ---
Author Organization [employer] Address [address] [facility] 7[address] [place] [address] Care Team Providers Care Clinical Informatics Educator Name Role Phone [facility] Primary Care Provider [phone] Encounter Details Date Type Department Care Team (Late st Contact Info) Description 07/19/2024 Orders Only [facility] [address] [place], [place] [phone] [facility] [address] [place] [address] Social History Tobacco Use Types Packs/Day Years [...] Description 03/14/2025 10:00 AM EDT Clinical Support [facility] [address] [place] [address] documented as of this encounter Visit Diagnoses Not on filedocumented in this encounter Additional Health Concerns Assessment Noted Time PHQ-9 Depression Total Score: 0 12/08/19 24 10:42 AM EST documented as of this encounter Care Teams Clinical Informatics Educator Relationship Specialty Start Date End Date Krysta Lockett FNP [address] [place] [address] PCP - General Family Medicine 10/27/22 documented as of this encounter
--- OUTSIDE RECORDS SUMMARY | 2025-03-01 17:33 | XMS_ITS | Encounter Summary ---
Author Organization [employer] Address [address] [facility] 7t [place] [address] Care Team Providers Care Translator And Interpreter Name Role Phone [facility] Primary Care Provider [phone] Reason for Visit * Reason Comments Med Refill Encounter Details Date Type Department Care Team ([facility] st Contact Info) Description 11/01/2023 Refill [facility] [address] [place], [place] [phone] [facility] [address] [place] [address] Dyspepsia Social History Tobacco Use Types Packs/Day [...] Description 03/14/2025 10:00 AM EDT Clinical Support [facility] [address] [place] [address] documented as of this encounter Visit Diagnoses Diagnosis Dyspepsia Dyspepsia and other specified disorders of function of stomach documented in this encounter Additional Health Concerns Assessment Noted Time PHQ-9 Depression Total Score: 0 12/21/19 23 10:22 AM EST documented as of this encounter Care Teams Translator And Interpreter Relationship Specialty Start Date End Date Krysta Lockett FNP [address] [place] [address] PCP - General Family Medicine 10/27/22 documented as of this encounter
== END 2025-03-01 14:46 | disposition home or self-care (01) ==
LOC: HO.HHCL 14:45
PROVIDERS: Visit Provider Registered Nurse
DX: E11.649 Type 2 diabetes mellitus with hypoglycemia without coma (principal)
CPT/HCPCS: 36415; 80053; 80061; 85025

== ENCOUNTER 2025-03-09 10:28 | Outpatient (AMB) | payer OTHER, SELFPAY ==
[2025-03-09 10:31] VITALS: BP 132/72; PULSE 72; O2SAT 100; BMI 28.3
--- NOTE | 2025-03-09 10:31 | HO.NEPHOV_ITS ---
Vital Signs 03/09/25 10:31 Height 5 ft 10 in Weight 197 lb 4 oz BMI 28.3 BP 132/72 Blood Pressure Location Lt brachial Position Sitting Pulse 72 Pulse Source Pulse Oximeter Pulse Oximetry (%) 100 Oxygen Delivery Method Room Air Intake Visit Reasons: CKD-Conf w/daughter Case Packer Required: No Accompanied by: Daughter Allergies aspirin [Aspirin] Allergy (Mild, Verified 03/09/25 10:34) SWELLING Penicillins Allergy (Mild, Verified 03/09/25 10:34) SWELLING Do you need a note to return to daycare/school/sports/work: No HPI Comments Details: Armando was seen in follow up of his CKD. He has H/O hypertension and was on ACEI in the past but was taken off it when he developed low blood pressures. He is a diabetic on insulin. He had high BMI and underwent gastric surgery with significant weight loss.He has H/O very mild proteinuria. He has no H/O malignancies. He denies epistaxis, photosensitivity, new skin rashes, edema, hematuria, recurrent sore throat, new bone or back pain. He is not on any SGLT2 i. He tries to avoid NSAID's and maintain good hydration. His HbA1c has been very good. [facility] Medical History Chronic restrictive lung disease Pulmonary nodules COVID-19 vaccine series completed Arthritis Asthma Vitamin D deficiency HLD (hyperlipidemia) T2DM (type 2 diabetes mellitus) Anxiety Depression Venous insufficiency Hypertension COPD (chronic obstructive pulmonary disease) Surgical History History of repair of hiatal hernia Status post laparoscopic sleeve gastrectomy History of esophagogastroduodenoscopy (EGD) History of umbilical hernia repair H/O colonoscopy with polypectomy Family History Father CVD (cardiovascular disease) Heart disease Mother Heart disease CVD (cardiovascular disease) Brother Cancer Brother Cancer Brother Heart attack Sister CVD (cardiovascular disease) Diabetes mellitus Hypertension Arthritis Social History Are you a primary career and technology education teacher to a significant other at home: No Do you presently have visiting nurse or other home services: Yes (MACHINE FEEDER FLOORPERSON-daughter) Alcohol intake: never Comment: no facial grimacing, medicated in pacu numerous times, pain scale explained Patient Tobacco Use Status: Former Tobacco user Tobacco use type: Cigarette Advance Directives Date on File: 06/27/21 service: No Current occupational status: unemployed Review of Systems Const All systems reviewed & are unremarkable except as noted in HPI and below Physical Exam Vital Signs: Last Vital Signs Pulse 72 03/09/25 10:31 BP 132/72 03/09/25 10:31 Pulse Ox 100 03/09/25 10:31 Oxygen Delivery Method Room Air 03/09/25 10:31 BMI result Body Mass Index 28.3 Const General: comfortable and no acute distress Orientation/consciousness: patient oriented x3 HEENT Head: Yes normocephalic Mouth: Normal oral and palatal mucosa present Eyes EOM: EOMs intact bilaterally Neck Neck: Yes supple Resp Auscultation: clear to auscultation bilaterally Cardio Jugular venous distension: no JVD Rate: regular rate GI Palpation (GI): Soft to palpation Auscultation: normal bowel sounds General: Yes no CVA tenderness Back/Spine/Pelvis Back: no CVA tenderness Skin General skin exam: no rashes or lesions noted Neuro General: patient oriented x3 and moves all extremities Extrem General: Yes no pedal edema Results Reviewed Nephrology Results: Hgb 12.7 g/dl (14.0-18.0) L 03/01/25 WBC 4.8 X10*3/uL (4.8-10.8) 03/01/25 Plt Count 238 X10*3/uL (160-400) 03/01/25 Sodium 140 mmol/L (135-145) 03/01/25 Potassium 4.4 mmol/L (3.3-5.1) 03/01/25 Chloride 105 mmol/L (96-108) 03/01/25 Carbon Dioxide 29 mmol/L (22-29) 03/01/25 BUN 15 mg/dL (9-16) 03/01/25 Creatinine 1.39 mg/dL (0.5-1.4) 03/01/25 Calcium 9.2 mg/dL (8.4-10.2) 03/01/25 Assessment & Plan Assessment & Plan (1) CKD (chronic kidney disease) stage 3, GFR 30-59 ml/min: Code(s): N18.30 - Chronic kidney disease, stage 3 unspecified Category: Medical Qualifiers: Chronic kidney disease stage 3 subtype: stage 3a (GFR 45-59) Qualified Code(s): N18.31 - Chronic kidney disease, stage 3a (2) Hypertension: Code(s): I10 - Essential (primary) hypertension Category: Medical Qualifiers: Hypertension type: unspecified Qualified Code(s): I10 - Essential (primary) hypertension Plan Armando has CKD 3 and his renal functions have been close to baseline He had been on ACEI in the past which was discontinued due to low BP's Work up done in the past including imaging reviewed Will do a 24 hour urine for cr cl and protein with time Will consider starting enalapril 1.25 mg at next visit if his hemodynamics/renal fn permits NO indication for renal biopsy now. No NSAID's; Good hydration Minimize PPI if he can and keep Vitamin C to 3/ week Is a great candidate for Jardiance 10 mg daily( On trulicity) Continue current dose of statins; Answered all questions Follow labs ordered & F/U appointment given Orders: Orders Creatinine 4 Months N18.31 - Chronic kidney disease, stage 3a Blood Urea Nitrogen 4 Months N18.31 - Chronic kidney disease, stage 3a Protein Creatinine Ratio, Ur 4 Months N18.31 - Chronic kidney disease, stage 3a Hemoglobin A1c 4 Months N18.31 - Chronic kidney disease, stage 3a Electrolytes 4 Months N18.31 - Chronic kidney disease, stage 3a Coding Level of Care Code Est Pt Level 4 (04646) Diagnoses Stage 3a chronic kidney disease N18.31 Chronic kidney disease stage 3 subtype: stage 3a (GFR 45-59) Hypertension, unspecified type I10 Hypertension type: unspecified
--- OUTSIDE RECORDS SUMMARY | 2025-03-09 11:32 | XMS_ITS | Clinical Summary ---
Author Organization [facility] Address [address] [place] [address] Care Team Providers Care Direct Mail Marketer Name Role Phone Unavailable Primary Care Provider [...] 2006 Zoster Vaccines (1 of 2) 2006 COVID-19 Vaccine ( - 2023-2 5 season) [...]
--- OUTSIDE RECORDS SUMMARY | 2025-03-09 11:32 | XMS_ITS | Encounter Summary ---
Author Organization [employer] Address [address] [facility] 7t [place] [address] Care Team Providers Care Inspector Structural Bonding Name Role Phone Krysta Lockett SWEEP MOLDER Primary Care Provider [phone] Reason for Visit * Reason Comments Med Refill Encounter Details Date Type Department Care Team (Late Contact Info) Description 11/24/2022 Refill [facility] [address] [place] [address] Chey Multani MD [address] [place] [address] Social History Tobacco Use Types Packs/Day Years [...] rx for persistent orthostatic hypotension. T/C to [facility] pharmacy. Zeinab states that pt has been getting med boxes regularly and is due for med box delivery tomorrow. documented in this encounter Plan of Treatment Upcoming Encounters Date Type Department Care Team (Late Contact Info) Description 03/14/2025 10:00 AM EDT Clinical Support [facility] [address] [place] [address] documented as of this encounter Visit Diagnoses Not on filedocumented in this encounter Care Teams Inspector Structural Bonding Relationship Specialty Start Date End Date Krysta Lockett FNP [address] [place] [address] PCP - General Family Medicine 10/27/22 documented as of this encounter
--- OUTSIDE RECORDS SUMMARY | 2025-03-09 11:32 | XMS_ITS | Encounter Summary ---
Author Organization [employer] Address [address] [facility] 7t [place] [address] Care Team Providers Care Brickmason Helper Name Role Phone Krysta Lockett GAMING DEALER Primary Care Provider [phone] Encounter Details Date Type Department Care Team (Late st Contact Info) Description 02/16/2024 Orders Only [facility] [address] [place], [place] [phone] Provider, MD Larissa Social History Tobacco Use [...] Description 03/14/2025 10:00 AM EDT Clinical Support [facility] [address] [facility] [place] [address] documented as of this encounter Procedures Procedure Name Priority Date/Time Associated Diagnosis Comments US RENAL BI Routine 03/08/2024 12:37 PM EDT HM COLONOSCOPY Routine 07/18/2019 7:44 AM EDT documented in this encounter Results * US RENAL BI (03/08/2024 12:37 PM EDT) Anatomical Region Laterality Modality Abdomen Ultrasound 03/08/2024 12:3 7 PM EDT Narrative 03/10/2024 10:07 AM EDT ? [facility] ?[address] ?[place] [address] ? Ultrasound Report ? Signed ? Patient: Armando Ba ?MR#: [id number] ?? [id number] ? : 1955 ?Acct:[id number] ? Age/Sex: 68 / M ?ADM Date: 03/08/24 ? Loc: HO.US ? Attending Dr: Bladimir Le MD ? Ordering Physician: Bladimir eL MD ?? Date of Service: 03/08/24 ?? Procedure(s): US renal BI ?? Accession Number(s): [id number] ? cc: Bladimir Le MD; Krysta Lockett GAMING DEALER ? EXAMINATION: ?? US RETROPERITONEAL LIMITED (RENAL [...] 1004 ? DD/ 1237 ? TD/TT: ? Chargemaster Specialist: ImeldaK ? Procedure Note Donvenuslulupriscillater, Image - 03/10/2024 [place] [address] Ultrasound Report Signed Patient: Bandar Ba#: [id number] : 6Acct:[id number] Age/Sex: 68 / MADM Date: 03/08/24 Loc: HO.US Attending Dr: Bladimir Le MD Ordering Physician: Bladimir Le MD Date of Service: 03/08/24 Procedure(s): US renal BI Accession Number(s): [id number] cc: Bladimir Le MD; CeylonKrysta [facility] EXAMINATION: US RETROPERITONEAL LIMITED (RENAL ONLY) CLINICAL [...] in OV> 03/10/24 1004 DD/ 1237 TD/TT: Chargemaster Specialist: ELAINE [facility] External Provider IMG US PROCEDURES Final Result * Hm Colonoscopy (07/18/2019 7:44 AM EDT) Historical Provider HEALTH MAINTENANCE Final Result documented in this encounter Visit Diagnoses Not on filedocumented in this encounter Additional Health Concerns Assessment Noted Time PHQ-9 Depression Total Score: 0 12/08/19 24 10:42 AM EST documented as of this encounter Care Teams Brickmason Helper Relationship Specialty Start Date End Date Krysta Lockett FNP [address] [place] [address] PCP - General Family Medicine 10/27/22 documented as of this encounter
--- OUTSIDE RECORDS SUMMARY | 2025-03-09 11:32 | XMS_ITS | Encounter Summary ---
Author Organization [employer] Address [address] [place] [address] 7[address] [place] [address] Care Team Providers Care Practicing Urologist Name Role Phone Krysta Lockett [facility] Primary Care Provider Encounter Details Date Type Department Care Team (Late st Contact Info) Description 11/18/2022 Orders Only [facility] MED[facility] [address] [place] [address] Amanda Haynes LPN Social History Tobacco Use [...] Description 03/14/2025 10:00 AM EDT Clinical Support [facility] [address] [place] [address] documented as of this encounter Visit Diagnoses Not on filedocumented in this encounter Care Teams Practicing Urologist Relationship Specialty Start Date End Date Krysta Lockett CORPORATE LOGISTICS MANAGER [address] [place] [address] PCP - General Family Medicine 10/27/22 documented as of this encounter
--- OUTSIDE RECORDS SUMMARY | 2025-03-09 11:32 | XMS_ITS | Data Portability ---
Author Organization [employer] Address [address] [place] [id number] Care Team Providers Care Toll Line Repairer Name Role Phone HIM [facility] Primary Care Provider Assessment Encounter Date Assessment Date Assessment LastModified by Organization Details LastModified Time 01/19/2025 01/19/2025 I provided real -time medical direction via phone for this encounter and was available for additional phone-based assistance as needed. I have reviewed and agree with the Assessment and Plan as documented by the Venetian Blind Machine Operator. Patient given the opportunity to ask questions. Our service contacted for an assessment of: elevated BG As per above, patient with elevated BG and went to see his doctor today to obtain blood work to see what medications he can be started on. He is eating and drinking normally. No polyuria, polydipsia or polyphagia. No unusual weight loss. Per metal moulder's assistant on the scene, VSS, BG 157 Impression: [...] Assessment and Plan as documented by the Venetian Blind Machine Operator. We discussed the diagnostic uncertainty of home [...] call 911- verbalized understanding of instructions vis merchandise flow team member [email or web address] Not available 01/23/2025 18:01:10 Plan of Treatment Reminders Order Date Submit Date Provider Last Modified By Organization Details Last Modified Time Details Appointments None recorded. Lab glucose, fingerstick , blood 2024 025 [email or web address] 0 [facility], [address] [place] [address], [phone] 17:26:47 urinalysis, dipstick [address], [phone] 09:16:17 glucose, fingerstick , blood [address], [phone] 19:19:25 Referral None recorded. Procedures None recorded. Surgeries None recorded. Imaging None recorded. Medication Orders acetaminoph en 500 mg tablet 2024 025 [email or web address] 0 [id number], [address], [place], [id number], 17:34:06 Patient TargetsNo targets recorded. Patient InstructionsNo instructions recorded. Reason for Referral None Reported. Results Created Date Observation Date Name Description Value Unit Range Abnormal Flag Note LastModifiedBy Organization Detail LastModifiedTime 01/20/2001/19/2025 glucbrown [place]ton se rstic k, blood Blood Glucose: mg/dl 157 Not Available [address], [phone] 01/19/2025 17:07:38 01/24/2001/23/2025 gluco ruel florese rstic k, blood Blood Glucose: mg/dl 118 Not Available [facility] [address] [place] [address], [phone] 01/23/2025 17:26:29 Result Notes None recorded. Medical Equipment None Reported. Allergies Allergen ID Allergen Name Allergen Category Reaction Reaction Severity Criticality Documentation Date Start Date Code Code System Note Provider Name and Address Organization Details Recorded Time 26177 aspirin medicatio n Not available Not available Not available 01/17/2025 1191 RxNorm Not Available [facility] - production 16:33:47 74227 Product containin g penicilli n (product) medicatio n Not available Not available Not available 01/17/2025 01022 8001 SNOMED Not Available [facility] - production 16:33:47 38518 Non-stero idal anti-infl ammatory agent (product) medicatio n Not available Not available Not available 01/17/2025 45076 005 SNOMED Not Available [facility] - production [...] Updated DateTime 5 99 % 99 % 27333.4 8 g 177.8 cm 67 /min 16 /min 155 mm[Hg] 74 mm[Hg] Not Available [facility] 16:59:59 Date Recorded Body weight Body mass index (BMI) Provider Name and Address Organization Details Last Updated DateTime 01/23/2025 96565.55 g 27.3 kg/m2 Kerrie Kerr MD [address] [place] [address],[address] [facility], [place], [address], [place] [employer] 01/23/2025 17:55:55 Date Recorded Respiratory rate Heart rate Body height Oxygen saturation Oxygen saturation in Arterial blood by Pulse oximetry Body temperature Systolic blood pressure Diastolic blood pressure Provider Name and Address Organization Details Last Updated DateTime 5 18 /min 64 /min 177.8 cm 98 % 98 % 98.7 [degF] 146 mm[Hg] 81 mm[Hg] Not Available [employer] 17:24:57 Social History None recorded. Functional Status None recorded. Mental Status None recorded. Family History Nothing Reported. Medical History No medical history recorded. Past Encounters Encounter ID Performer Location Encounter Start Date Encounter Closed Date Diagnosis/Indication Diagnosis SNOMED-CT Code Diagnosis ICD10 Code Diagnosis Note [id number] Sandra Olvera MD [facility] [address] [place] [phone] 01/19/2025 16:25:38 01/22/2025 22:06:20 Hyperglycemia 50051955 R73.9 [id number] Kerrie Kerr MD [facility] [address] [place] [phone] 01/23/2025 17:24:55 01/23/2025 19:49:59 Type 2 diabetes mellitus 01889811 E11.9 w/ mild headache- c/o urinary frequency [...] Jones Member ID Guarantor Name 01/19/2025 1 [facility] - DOS ON OR AFTER 2023 - DUAL ELIGIBLE - CUSTODIAL OPTIONS AND ONE CARE (MEDICARE REPLACEMENT/ADV ANTAGE - HMO) Armando Gay [id number] Armando Gay 01/23/2025 1 [facility] - DOS ON OR AFTER 2023 - DUAL ELIGIBLE - CUSTODIAL OPTIONS AND ONE CARE (MEDICARE REPLACEMENT/ADV ANTAGE - HMO) Armando Gay [id number] Armando Gay Notes Date Note Type Note [...] at 01/17/2025 - 16:33 Comments: HPI reviewed Venetian Blind Machine Operator Organization Information for [employer] Business Legal Name: [employer]? Address: [address] [place] [address], Industrial Safety And Health Technician: Andrew Woo MD ORSE No.: [id number] Venetian Blind Machine Operator POC Test Results from [facility] Blood Glucose Measurement (17:03:58) Blood Glucose: 157 mg/dL ....................... ....................... ....................... ....................... ....................... ....................... ... Venetian Blind Machine Operator Note From Waqas Wright: [facility] makes pt contact. He is standing in his doorway watching for [facility] arrival. He is generally well appearing and walks and moves w/o hinderance. No ashen or maguire color is noted, his chest rises and falls softly w/ respirations w/ no stridor or sonorous respirations present. No facial droop, one-sided weakness, or slurred speech are observed and he is not bleeding anywhere. Pt is Ecuadorean-speaking only and daughter is on scene for [...] Pt consents to treatment and evaluation today. [facility] obtains pt consent, vital signs are gathered, and pt is assessed. Lung sounds are clear and equal to auscultation, abdomen is soft and nontender, w/ no guarding, distension, or pulsating masses, bilateral LE's have 1+ edema. FSBS is obtained and is 157. [facility] contacts [facility] and discusses the above. [facility] recommends pt wait on results of his lab work as his physical exam and vital signs are noted life-threatening or concerning at this time. [facility] informs pt to seek emergency room care if he develops a high fever, n/v/d he can't control, bloody emesis or stools, cp, or sob. Daughter translates and pt expresses his verbal understanding. [facility] is clear. Report completed by TUNDE Wright [id number]. [facility] Lab Orders: glucose, fingerstick, blood: Performed ....................... ....................... ....................... ....................... ....................... ....................... ... [facility] Consulted: Sandra Olvera ....................... ....................... ....................... ....................... ....................... ....................... ... Disposition: Fulfilled Sandra Olvera MD [address] [place] [address],[address], [place], [phone], [employer] 01/19/2025 19:15:09 01/23/2025 text/html CRC Nurse Triage [...] - 16:07Allergies Reviewed at 01/23/2025 - 16:07Comments: Armament Aircraft Mechanic verified the patient's name//address and phone number. [...] emergency treatment if needed -H. ESTEE Mims Venetian Blind Machine Operator Organization Information for Janice [employer] Legal Name: [employer]?Address: [address] [place] [address], Medical Director: Andrew Woo [facility] No.: [id number] Venetian Blind Machine Operator POC Test Results from [employer] Blood [...] - 16:07Allergies Reviewed at 01/23/2025 - 16:07Comments: Armament Aircraft Mechanic verified the patient's name//address and phone number. [...] emergency treatment if needed -H. ESTEE Mims Venetian Blind Machine Operator Organization Information for [employer] Legal Name: [employer]?Address: [address] [place] [address], USMedical Director: Andrew Woo [facility] No.: [id number] Venetian Blind Machine Operator POC Test Results from [facility] - [...] ....................... ....................... ....................... ....................... ....................... ....................... ... Venetian Blind Machine Operator Note From Janice Pinedo: Sent to a call for a pt complaining of high blood sugar. [facility] arrives on scene, pt is alert and oriented, airway is patent. Pt speaks Ecuadorean, and pt's daughter (via phone) serves as merchandise flow team member. Pt complains of high blood sugar x [...] unremarkable; Extremities: unremarkable; Skin: pink, warm, dry; [facility] consulted and orders urine dip and Tylenol 1gm PO. Pt advised not to exceed Tylenol 3gms daily. Urine sample obtained via clean catch; Urine dip results: uploaded to [facility]; Tylenol 1gm PO administered without incident. Pt is advised to eat protein with carbs, avoid fried foods, and given food alternatives for better diabetic diet. Pt is reassured urine has no glucose or ketones. Pt is advised to follow up with PCP regarding treatment plan. Red flags discussed. Pt/family has no further questions. [facility] Lab Orders: glucose, fingerstick, blood: Performed urinalysis, dipstick: Performed [facility] Medication Orders: acetaminophen 500 mg tablet: Administered ....................... ....................... ....................... ....................... ....................... ....................... ... [facility] Consulted: Kerrie Kerr ....................... ....................... ....................... ....................... ....................... ....................... ... Disposition: Fulfilled Kerrie Kerr MD [address] [facility],[address], [place], [address], [place] - DIANE, DARREN 01/23/2025 19:12:43
--- OUTSIDE RECORDS SUMMARY | 2025-03-09 11:32 | XMS_ITS | Encounter Summary ---
Author Organization [facility] [facility] Address [address] [place] [address] [address] [place] [address] Care Team Providers Care Manufacturing Electrician Name Role Phone Roberto Carlos Coleman MD Primary Care Provider Krysta Nichols Primary Care Provider [phone] Encounter Details Date Type Department Care Team (Latest Contact Info) Description 12/01/2019 Abstract [facility] CONVERSIONS Dental, Provider, DDS Social History [...] Description 03/14/2025 10:00 AM EDT Clinical Support [facility] MEDICINE [address] [place] [address] documented as of this encounter Visit Diagnoses Not on filedocumented in this encounter Care Teams Manufacturing Electrician Relationship Specialty Start Date End Date Roberto Carlos Coleman MD PCP - General Family Medicine 04/19/20 10/26/22 Krysta Lockett FNP [address] [place] [address] PCP - General Family Medicine 10/27/22 documented as of this encounter
--- OUTSIDE RECORDS SUMMARY | 2025-03-09 11:32 | XMS_ITS | Encounter Summary ---
Author Organization [employer] Address [address] [facility] [address]t [place] [address] Care Team Providers Care Roads And Parking Lots Sweeper Operator Name Role Phone Reagan [facility] Primary Care Provider [phone] Encounter Details Date Type Department Care Team (Late st Contact Info) Description 07/19/2024 Orders Only [facility] [address] [place], [place] [phone] [facility] [address] [place] [address] Social History Tobacco Use Types Packs/Day Years [...] Description 03/14/2025 10:00 AM EDT Clinical Support [facility] MEDICINE [address] [place] [address] documented as of this encounter Visit Diagnoses Not on filedocumented in this encounter Additional Health Concerns Assessment Noted Time PHQ-9 Depression Total Score: 0 12/08/19 24 10:42 AM EST documented as of this encounter Care Teams Roads And Parking Lots Sweeper Operator Relationship Specialty Start Date End Date Krysta Lockett FNP [address] [place] [address] PCP - General Family Medicine 10/27/22 documented as of this encounter
--- OUTSIDE RECORDS SUMMARY | 2025-03-09 11:32 | XMS_ITS | Encounter Summary ---
Author Organization [employer] Address [address] [facility] [address] [place] [address] Care Team Providers Care Dispatcher Automobile Rental Name Role Phone [facility] Primary Care Provider [phone] Reason for Visit * Reason Comments Med Refill Encounter Details Date Type Department Care Team ([facility] st Contact Info) Description 11/01/2023 Refill [facility] MEDICINE [address] [place], [place] [phone] [facility] [address] [place] [address] Dyspepsia Social History Tobacco Use Types Packs/Day Years Used Date Smoking Tobacco: Former Cigarettes Passive Smoke Exposure: Current Smokeless Tobacco: Never Alcohol Use Standard Drinks/Week Comments Not Currently 0 (1 standard drink = 0.6 oz pur e alcohol) Depression Answer Date Recorded Patient Health Questionnaire-9 Score 0 12/21/2022 Housing Stability Answer Date Recorded What is your housing situation today? I have zoial parker 08/26/[address] you [...] Description 03/14/2025 10:00 AM EDT Clinical Support [facility] [address] [place] [address] documented as of this encounter Visit Diagnoses Diagnosis Dyspepsia Dyspepsia and other specified disorders of function of stomach documented in this encounter Additional Health Concerns Assessment Noted Time PHQ-9 Depression Total Score: 0 12/21/19 23 10:22 AM EST documented as of this encounter Care Teams Dispatcher Automobile Rental Relationship Specialty Start Date End Date Krysta Lockett FNP [address] [place] [address] PCP - General Family Medicine 10/27/22 documented as of this encounter
--- OUTSIDE RECORDS SUMMARY | 2025-03-09 11:32 | XMS_ITS | Clinical Summary ---
Author Organization [employer] Address [address] [place] [address] 7t [place] [address] Care Team Providers Care Manager Of Selection And Assessment Name Role Phone Krysta Lockett THERAPIST RESPIRATORY Primary Care Provider [phone] Allergies Active Allergy Reactions Criticality Noted Date [...] 23 Active Spiriva HandiHaler 18 MCG inhalation capsuleIndicati ons:Chronic obstructive pulmonary disease, unspecified COPD type (CMS/HCC) USE 1 CAPSULE FOR INHALATION ONCE A DAY DO NOT SWALLOW CAPSULE 30 capsule 11 01/23/20 23 Active midodrine (Proamatine) 2.5 MG tabletIndicatio ns:Orthostatic hypotension TAKE 1 TABLET BY MOUTH TWICE DAILY IN THE MORNING AND AT BEDTIME 60 tablet 3 11/27/19 24 Active gabapentin (Neurontin) 100 MG capsuleIndicati ons:Pain TAKE 1 CAPSULE BY MOUTH AT BEDTIME 30 capsule 3 11/27/19 24 Active ascorbic acid (Vitamin C) 250 MG chewable tabletIndicatio ns:Seasonal allergies TAKE 1 TABLET BY MOUTH EVERY MORNING WITH IRON (CHEW) 90 tablet 1 11/29/19 24 Active loratadine (Claritin) 10 MG tabletIndicatio ns:Seasonal allergies TAKE 1 TABLET BY MOUTH EVERY DAY 90 tablet 1 11/29/19 24 Active FeroSul 325 (65 Fe) MG tabletIndicatio ns:Anemia of chronic disease TAKE 1 TABLET BY MOUTH EVERY MORNING 90 tablet 1 11/29/19 24 Active fluticasone (Flonase) 50 MCG/ACT nasal sprayIndication s:Seasonal allergies USE 2 SPRAYS IN EACH NOSTRIL EVERY DAY 48 g 11/29/19 24 Active Fluticasone-Delroy meterol 100-50 MCG/ACT aerosol powderIndicatio ns:Chronic obstructive pulmonary disease, unspecified COPD type ([facility]) INHALE 1 PUFF TWICE DAILY. RINSE MOUTH AFTER USING. 60 each 11 01/28/20 24 Active glucose 4 g chewable tabletIndicatio ns:Type 2 diabetes mellitus with hypoglycemia without coma, without long-term current use of insulin ([facility]) Chew 4 tablets (16 g) if needed for low blood sugar. 50 tablet 12 06/28/20 24 025 Active Diclofenac Sodium 1 % gelIndications: Other chronic pain Apply topically to affected areas twice daily 150 g 06/28/20 24 Active Continuous Glucose Sensor (FreeStyle Iglesia 2 Sensor) miscIndications :Type 2 diabetes mellitus with hypoglycemia without coma, without long-term current use of insulin ([facility]) Apply 1 sensor every 14 days 2 each 2 06/30/20 24 Active Continuous Glucose Labor Relations Manager (FreeStyle Iglesia 2 [place]) deviceIndicatio ns:Type 2 diabetes mellitus with hypoglycemia without coma, without long-term current use of insulin ([facility]) Scan sensor every 8 hours 1 each 06/30/20 24 Active folic acid (Folvite) 1 MG tabletIndicatio ns:Stage 3a chronic kidney disease ([facility]) TAKE 1 TABLET BY MOUTH EVERY MORNING 90 tablet 1 07/21/20 24 Active acetaminophen (Tylenol Extra Strength) 500 MG tabletIndicatio ns:Chronic left shoulder pain Take 2 tablets (1,000 mg) by mouth every 6 (six) hours if needed for moderate pain. 30 tablet 1 08/09/20 24 025 Active lidocaine (Lidoderm) 5 % patchIndication s:Chronic left shoulder pain Apply topically to affected areas. Leave on for up to 12 hours 30 patch 1 08/09/20 24 Active omeprazole (PriLOSEC) [address] capsuleIndicati ons:Dyspepsia TAKE 1 CAPSULE BY MOUTH EVERY MORNING BEFORE A MEAL 90 capsule 1 08/23/20 24 Active Eliquis 5 MG tabletIndicatio ns:Acute deep vein thrombosis (DVT) of other vein of lower extremity, unspecified laterality (CMS/[facility]) TAKE 1 TABLET BY MOUTH TWICE DAILY ONCE EVERY MORNING AND ONCE EVERY NIGHT AT BEDTIME 60 tablet 3 11/24/19 25 Active Blood Pressure kitIndications: Elevated blood pressure reading 1 kit 1 (one) time per week. 1 kit 01/20/20 25 Active Dulaglutide (Trulicity) 0.75 MG/0.5ML solution auto-injectorIn dications:Type 2 diabetes mellitus with hypoglycemia without coma, without long-term current use of insulin ([facility]) Inject 0.75 mg under the skin 1 (one) time per week. 2 mL 1 02/29/20 25 026 Active sildenafil (Viagra) 25 MG tabletIndicatio ns:Erectile dysfunction, unspecified erectile dysfunction type Take 1 tablet (25 mg) by mouth if needed each day for erectile dysfunction. 1 hour before sexual activity 30 tablet 02/29/20 25 025 Active traZODone (Desyrel) 100 MG tablet TAKE 1 TABLET BY MOUTH AT BEDTIME 30 tablet 5 03/09/20 25 Active traZODone (Desyrel) 100 MG tablet TAKE 1 TABLET BY MOUTH AT BEDTIME 30 tablet 5 09/04/20 24 025 Discontinued Zepbound 2.5 MG/0.5ML solution auto-injectorIn dications:Type 2 diabetes mellitus with hypoglycemia without coma, without long-term current use of insulin ([facility]) Inject 0.5 mL (2.5 mg) under the skin 1 (one) time per week for 28 days. 2 mL 01/23/20 25 025 Dulaglutide (Trulicity) 0.75 MG/0.5ML solution auto-injectorIn dications:Type 2 diabetes mellitus without complication, without long-term current use of insulin (CMS/[facility]) Inject 0.75 mg under the skin 1 (one) time per week. 2 mL 1 02/28/20 25 025 Discontinued(I neffective) Active Problems Problem Noted Date Diagnosed Date [...] no improvement -gave today to pt # [id number] of his vascular office to call and reschedule apt --I called today as well Dr Beckham's office and left my phone number for a call back from vascular -referred to cards to r/o cardiac etiology -tylenol prn x pain in legs -raise legs -continue use of pneumatic compression -alarm signs and symptoms explained Venous insufficiency 12/23/2022 Overview (12/23/2022): ?? Followed by [facility] vascular ?? Negative LE ultrasound 11/2022 Assessment [...] thrombosis) 12/15/2022 Overview (12/23/2022): ?? Followed by [facility]. 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 Started on [...] NSR no ischemic findings -referred today to sample selector x complete eval of echocardiogram x orthopnea [...] organization. Date Type Department Care Team Description 03/07/2025 Refill [facility] [address] [place] [address] Krysta Lockett FNP 03/06/2025 Telephone [facility] [address] [place] [address] Krysta Lockett FNP Letter for School/Work 02/28/2025 10:15 AM EDT Office Visit [facility] [address] [place] [address] Krysta Lockett FNP Type 2 diabetes mellitus with hypoglycemia without coma, without long-term current use of insulin ([facility]) (Primary Dx); Erectile dysfunction, unspecified erectile dysfunction type 02/28/2025 Travel 01/26/2025 Telephone [facility] [address] [place] [address] Krysta Lockett FNP [employer] [facility] 01/19/2025 3:30 PM EDT Office Visit [facility] [address] [place] [address] Kadie Salazar NP Elevated blood pressure reading (Primary Dx); Type 2 diabetes mellitus without complication, without long-term current use of insulin ([facility]); Dietary counseling; Exercise counseling 01/19/2025 Refill [facility] [address] [place], [place] [phone] Kadie Salazar NP Type 2 diabetes mellitus with hypoglycemia without coma, without long-term current use of insulin (CMS/HCC) 01/19/2025 Travel 01/17/2025 Telephone [facility] [address] [place], [place] [phone] DouglasKrysta FNP Nurse Triage 12/29/2024 Orders Only [facility] External Provider, [facility] from Last 3 Months Immunizations Name [...] Description 03/14/2025 10:00 AM EDT Clinical Support [facility] [address] [place] [address] Health Maintenance Due Date Last Done Comments CT Colonography 1955 FIT DNA/Cologuard 1955 FIT 1955 FOBT 1955 Sigmoidoscopy 1955 Diabetes: Foot Exam 1966 Eye Exam 1966 Alcohol/Substance Use Screening 1968 RSV Patients and Patients Aged 60 years or older (1 - Risk 60-74 years 1-dose series) 2016 Colonoscopy 07/18/2022 07/18/2019 Colorectal Cancer Screening 07/18/2022 Diabetes: Urine Protein Screening 03/13/2025 03/13/2024, 12/08/2023, 04/23/2021, Additional history exists Diabetes: Hemoglobin A1C 07/22/2025 025, 06/28/2024, 12/08/2023, Additional history exists Depression Screening 02/28/2026 02/28/2025, 02/29/20 25 SDOH Screening 02/28/2026 02/28/2025 Lipid Panel 03/01/2026 03/01/2025, 06/07/2023, 12/15/2022, Additional history exists Tobacco Screening 03/01/2026 03/01/2025 DTaP/Tdap/Td Vaccines (3 [...] coma, without long-term current use of insulin ([facility]) CBC WITH AUTO DIFFERENTIAL Routine 03/01/2025 2:50 PM EDT Type 2 diabetes mellitus with hypoglycemia without coma, without long-term current use of insulin (CMS/[facility]) COMPREHENSIVE METABOLIC PANEL Routine 03/01/2025 2:50 PM EDT Type 2 diabetes mellitus with hypoglycemia without coma, without long-term current use of insulin (CMS/HCC) POCT GLUCOSE Routine 02/28/2025 10:34 AM EDT Type 2 diabetes mellitus with hypoglycemia without coma, without long-term current use of insulin (CMS/[facility]) POCT GLYCATED HEMOGLOBIN, TOTAL Routine 01/19/2025 4:25 PM EDT Type 2 diabetes mellitus without complication, without long-term current use of insulin (CMS/[facility]) POCT GLUCOSE Routine 01/19/2025 3:54 [...] Blood Count 4.8 4.8 - 10.8 X10*3/uL [facility] Red Blood Count 4.14(L) 4.60 - 5.80 X10*6/uL [facility] Hemoglobin 12.7(L) 14.0 - 18.0 g/dl [facility] Hematocrit 40.2(L) 42.0 - 52.0 % [facility] Mean Corpuscular Volume 97.1 80.0 - 98.0 fL [facility] Mean Corpuscular Hemoglobin 30.7 27.0 - 33.0 pg [facility] Mean Corpuscular HGB Conc 31.6 31.0 - 36.0 g/dl [facility] Red Cell Distribution Width 11.9 11.0 - 16.0 % [facility] Platelet Count 238 160 - 400 X10*3/uL [facility] Mean Platelet Volume 9.9 9.4 - 12.4 fL [facility] Neutrophils Percent Auto 56.2 45 - 73 % [facility] Imm Gran Pct Auto 0.0 0.0 - 0.4 % [facility] Lymphocytes Percent Auto 33.1 20 - 40 % [facility] Monocytes Percent Auto 6.8 2 - 11 % [facility] Eosinophils Percent Auto 3.1 0 - 4 % [facility] Basophils Percent Auto 0.8 0 - 2 % [facility] NRBC Pct Auto 0.0 0.0 - 0.2 /100WBC [facility] Neutrophils Absolute Auto 2.7 2.0 - 8.3 x10*3/uL [facility] Imm Gran Abs Auto 0.00 0.00 - 0.03 X10*3/uL [facility] Lymphocytes Absolute Auto 1.6 1.2 - 4.9 X10*3/uL [facility] Monocytes Absolute Auto 0.3 0.1 - 1.2 X10*3/uL [facility] Eosinophils Absolute Auto 0.2 0.0 - 0.4 X10*3/uL [facility] Basophils Absolute Auto 0.0 0.0 - 0.2 X10*3/uL [facility] NRBC Abs Auto 0.000 0.0 - 0.012 X10*3/uL [facility] Blood Venous blood specimen / Unknown 03/01/2025 2:50 PM EDT 03/01/2025 3:55 PM EDT [facility] LAB BLOOD ORDERABLES Final Re sult [facility] [address] [place] [address] [phone] * Lipid Panel, Standard (03/01/2025 2:50 PM EDT) Triglycerides 57 <150 mg/dL [facility] Comment:Desirable Triglyceri de: less than 150 mg/dLBorderline High Triglyceride 150-199 mg/dLHigh Triglyceride: 200-499 mg/dLVery High Triglyceride: greater than or equal to 5OO mg/dL Cholesterol 177 <200 mg/dL [facility] Comment:Desirable Cholestero l: less than 200 mg/dLBorderline High Cholesterol: 200-239 mg/dLHigh Cholesterol: greater than 239 mg/dL LDL Cholesterol Calculated 94 <100 mg/dL [facility] Comment:Desirable LDL: less than 100 mg/dLNear Optimal/Above Optimal LDL: 110- 129 mg/dLBorderline High LDL: 130-159 mg/dLHigh LDL: 160-189 mg/dLVery High LDL: greater than or equal to 190 mg/dL HDL Cholesterol 72 >40 mg/dL [facility] Comment:Desirable HDL: great er than 40 mg/dL Note: This HDL assay may give artificially low results in patients with liver disease. Blood Venous blood specimen / Unknown 03/01/2025 2:50 PM EDT 03/01/2025 3:55 PM EDT [facility] LAB BLOOD ORDERABLES Final Re sult [facility] [address] [place] [address] [phone] * (ABNORMAL) Comprehensive Metabolic Panel (03/01/2025 2:50 PM EDT) Sodium 140 135 - 145 mmol/L [facility] Potassium 4.4 3.3 - 5.1 mmol/L [facility] Chloride 105 96 - 108 mmol/L [facility] Carbon Dioxide 29 22 - 29 mmol/L [facility] Anion Gap 10(L) 12 - 20 [facility] Urea Nitrogen (BUN) 15 9 - 16 mg/dL [facility] Creatinine, Serum 1.39 0.5 - 1.4 mg/dL [facility] Estimated Glomerular Filt Rate 51 [facility] Comment:Chronic Kidney Disea se: Estimated GFR < 60 mL/min/[id number] Kidney Disease: Estimated GFR < 15 mL/min/1.73m2 Glucose 120(H) 60 - 115 mg/dL [facility] Calcium 9.2 8.4 - 10.2 mg/dL [facility] Bilirubin, Total 0.7 0.0 - 1.0 mg/dL [facility] Aspartate Amino Transferase 28 5 - 37 U/L [facility] Alanine Aminotransferase 14 0 - 40 U/L [facility] Total Protein 6.7 6.5 - 8.0 g/dL [facility] Albumin Level 3.7 3.5 - 5.0 g/dL [facility] Alkaline Phosphatase 110 39 - 117 U/L [facility] Blood Venous blood specimen / Unknown 03/01/2025 2:50 PM EDT 03/01/2025 3:55 PM EDT [facility] LAB BLOOD ORDERABLES Final Re sult [facility] [address] [place] [address] [phone] * (ABNORMAL) POCT Glucose (02/28/2025 10:34 AM EDT) Only the most recent of2 resultswithin the time period is included. Glucose Blood, POC 195(A) 60 - 200 mg/dL QC Media Lot # [id number] Lot# Expiration Date [id number] Blood Capillary blood specimen / Unknown 02/28/2025 10:34 AM EDT [facility] POINT OF CARE TEST ENTER/EDIT ORDERABLES [...] EST Narrative 01/01/2025 12:45 PM EST ? [facility] [facility] ?[address] ?[place] [address] ? CT Scan Report ? Signed ? Patient: Salmeron Victor Hugo,Armando ?MR#: [id number] ?? [id number] ? : 1955 ?Acct:[id number] ? Age/Sex: 69 / M ?ADM Date: 12/29/24 ? Loc: HO.CT ? Attending Dr: Grabiel Roldan MD ? Ordering Physician: Grabiel Roldan MD ?? Date of Service: 12/29/24 ?? Procedure(s): CT chest wo IV con ?? Accession Number(s): [id number] ? cc: Grabiel Roldan MD; Krysta Lockett THERAPIST RESPIRATORY ? Report Number: ?? [id number]: Total DLP = ??182.00 mGy-cm ? CLINICAL HISTORY: R91.8 - Other nonspecific abnormal finding of lung field ? CT chest without contrast ? Comparison: CT/NM/SR - CT CHEST WO IV CON - [...] DD/ 1244 ? TD/TT: 01/01/25 1244 ? Tail Edger: ? Procedure Note Peggy Larose - 01/01/2025 [place] [address] [place] [address] CT Scan Report Signed Patient: Armando BaMR#: [id number] : 6Acct:[id number] Age/Sex: 69 / MADM Date: 12/29/24 Loc: HO.CT Attending Dr: Grabiel Roldan MD Ordering Physician: Grabiel Roldan MD Date of Service: 12/29/24 Procedure(s): CT chest wo IV con Accession Number(s): [id number] cc: Grabiel Roldan MD; [facility] Report Number: [id number]: Total DLP = 182.00 mGy-cm CLINICAL HISTORY: R91.8 - Other nonspecific abnormal finding of lung field CT chest without contrast Comparison: CT/NM/SR - CT CHEST WO IV CON - [...] 01/01/25 1245 DD/ 1244 TD/TT: 01/01/25 1244 Tail Edger: [facility] External Provider IMG CT PROCEDURES Final Result * (ABNORMAL) Protein Creatinine Ratio, Urine (03/13/2024 9:57 AM EDT) Creatinine, Urine 97.69 mg/dL [facility] Protein, Total, Random Urine 14(H) <12 mg/dL [facility] Protein/Creatin ine Ratio, Ur 0.14 <0.2 [facility] Comment:The spot urine prote in:creatinine ratio may increase to 0.3during normal . 03/13/2024 9:57 AM EDT 03/13/2024 11:31 AM EDT Generic External Data Provider LAB URINE ORDERAB LES Final Result Performing Organization Address [facility] Co de Phone Number [facility] [address] [place] [address] [phone] * Hepatitis C Antibody with Reflex to HCV, RNA, Quantitative, Real-Time PCR (12/15/2022 9:44 AM EST) Hepatitis C Antibody NON-REACT SIDDHARTH NON-REACT SIDDHARTH [employer] Index <0.02 <1.00 [employer] Comment: HCV antibody was non-reactive. There is no laboratory evidence of HCV infection. In most cases, no further action is required. However, if recent HCV exposure is suspected, a test for HCV RNA (test code 00069) is suggested. For additional information please refer to http://education.Taggo/faq/JXZ31q9 (This link is being provided for informational/ educational purposes only.) Blood Venous blood specimen / Unknown 12/15/2022 9:44 AM EST 12/15/2022 9:45 AM EST Narrative [facility] - 12/16/2022 2:26 PM EST FASTING:UNKNOWN FASTING: UNKNOWN [facility] THERAPIST RESPIRATORY LAB BLOOD ORDERABLES Final Re sult Performing Organization Address [facility] Co de Phone Number [facility] [address] [facility] [facility], [place] [address] [place] [employer] [address] [facility], ([address]) [place] [address] * Hm Colonoscopy (07/18/2019 7:44 AM EDT) Historical Provider MD HEALTH MAINTENANCE Final Result from Last 3 Months or Most Recently Relevant to Health Maintenance Insurance [facility] [employer] (O D-SNP) JUAN ASHBY [id number] Care Teams Manager Of Selection And Assessment Relationship Specialty Start Date End Date Krysta Lockett FNP [address] [place] [phone] PCP - General Family Medicine 10/27/22
--- OUTSIDE RECORDS SUMMARY | 2025-03-09 11:32 | XMS_ITS | Encounter Summary ---
Author Organization [employer] Address [address] [facility] 7[address] [place] [address] Care Team Providers Care Integrated Campaign Manager Name Role Phone [facility] Primary Care Provider [phone] Reason for Visit * Reason Onset Date Comments Letter for School/Work 03/06/2025 Encounter Details Date Type Department Care Team ([facility] Contact Info) Description 03/06/[address] [facility] [address] [place], [place] [phone] [facility] [address] [place], [place] [phone] Letter for School/Work Social History Tobacco Use Types Packs/Day Years [...] encounter Miscellaneous Notes * Telephone Encounter - Kadie Crenshaw - 03/06/2025 8:28 AM EDT Stable lab letter documented in this encounter Plan of Treatment Upcoming Encounters Date Type Department Care Team (Late st Contact Info) Description 03/14/2025 10:00 AM EDT Clinical Support [facility] [address] [place] [address] documented as of this encounter Visit Diagnoses Not on filedocumented in this encounter Additional Health Concerns Assessment Noted Time PHQ-9 Depression Total Score: 6 02/29/20 25 11:37 AM EDT documented as of this encounter Care Teams Integrated Campaign Manager Relationship Specialty Start Date End Date Krysta Lockett FNP [address] [place] [address] PCP - General Family Medicine 10/27/22 documented as of this encounter
--- OUTSIDE RECORDS SUMMARY | 2025-03-09 11:32 | XMS_ITS | Encounter Summary ---
Author Organization [employer] Address [address] [facility] [address] [place] [address] Care Team Providers Care Supervisory Examiner Name Role Phone Krysta Lockett SLICE PLUG CUTTER OPERATOR Primary Care Provider [phone] Encounter Details Date Type Department Care Team (Late st Contact Info) Description 09/24/2023 Abstract [facility] [address] [place], [place] [phone] Richa Rehman Social History Tobacco Use Types [...] 10:00 AM EDT Clinical Support [facility] [address] [place] [address] documented as of this encounter Visit Diagnoses Not on filedocumented in this encounter Additional Health Concerns Assessment Noted Time PHQ-9 Depression Total Score: 0 12/21/19 23 10:22 AM EST documented as of this encounter Care Teams Supervisory Examiner Relationship Specialty Start Date End Date Krysta Lockett FNP [address] [place] [address] PCP - General Family Medicine 10/27/22 documented as of this encounter
--- OUTSIDE RECORDS SUMMARY | 2025-03-09 11:32 | XMS_ITS | Encounter Summary ---
Author Organization [employer] Address [address] [facility] [address] [place] [address] Care Team Providers Care Egg Processor Name Role Phone [facility] Primary Care Provider [phone] Encounter Details Date Type Department Care Team (Late st Contact Info) Description 09/01/2023 Abstract [facility] MED[facility] [address] [place], [place] [phone] [facility] [address] [place] [address] Social History Tobacco Use Types Packs/Day Years [...] Description 03/14/2025 10:00 AM EDT Clinical Support [facility] [address] [place] [address] documented as of this encounter Visit Diagnoses Not on filedocumented in this encounter Additional Health Concerns Assessment Noted Time PHQ-9 Depression Total Score: 0 12/21/19 23 10:22 AM EST documented as of this encounter Care Teams Egg Processor Relationship Specialty Start Date End Date Krysta Lockett FNP [address] [place] [address] PCP - General Family Medicine 10/27/22 documented as of this encounter
--- OUTSIDE RECORDS SUMMARY | 2025-03-09 11:32 | XMS_ITS | Clinical Summary ---
Author Organization [facility] [employer] [facility] Address [address] [address] Care Team Providers Care Doweling Machine Operator Name Role Phone Unavailable Primary Care Provider [...] % PVNMA 08/21/2020 us [facility] [id number] LICITED RESULTS Final Result PVNMA from Last 3 Months or Most Recently Relevant to Health Maintenance Insurance Medicaid [place] Medicare Medicaid [place] Medicare
--- OUTSIDE RECORDS SUMMARY | 2025-03-09 11:32 | XMS_ITS | Encounter Summary ---
Author Organization [employer] Address [address] [facility] [address] [place] [address] Care Team Providers Care Account Leader Name Role Phone [place] [facility] Primary Care Provider [phone] Reason for Visit * Reason Comments Med Refill Encounter Details Date Type Department Care Team ([facility] st Contact Info) Description 03/07/2025 Refill [facility] MEDICINE [address] [place], [place] [phone] [facility] [address] [place] [address] Social History Tobacco Use Types Packs/Day Years [...] Description 03/14/2025 10:00 AM EDT Clinical Support [facility] [address] [place] [address] documented as of this encounter Visit Diagnoses Not on filedocumented in this encounter Additional Health Concerns Assessment Noted Time PHQ-9 Depression Total Score: 6 02/29/20 25 11:37 AM EDT documented as of this encounter Care Teams Account Leader Relationship Specialty Start Date End Date Krysta Lockett FNP [address] [place] [address] PCP - General Family Medicine 10/27/22 documented as of this encounter
== END 2025-03-09 11:12 | disposition home or self-care (01) ==
LOC: HO.HKA 10:28
PROVIDERS: PCP Registered Nurse; Visit Provider Internal Medicine Nephrology
DX: N18.31 Chronic kidney disease, stage 3a (principal); I10 Essential (primary) hypertension
CPT/HCPCS: 99214

== ENCOUNTER → 2025-03-09 10:28 | Outpatient (BNVA) | payer OTHER, SELFPAY | PROVIDERS: PCP Registered Nurse; Visit Provider Internal Medicine Nephrology | DX: E11.22 Type 2 diabetes mellitus with diabetic chronic kidney disease (principal); I12.9 Hypertensive chronic kidney disease with stage 1 through stage 4 chronic kidney disease, or unspecified chronic kidney disease; N18.31 Chronic kidney disease, stage 3a | CPT/HCPCS: 99212 ==

== ENCOUNTER 2025-03-26 18:06 | Emergency (ER) | payer OTHER, SELFPAY ==
--- NOTE | ~2025-03-26 | CT_ITS ---
CLINICAL HISTORY: Mid abdo pain, hx of bariat. surg CT abdomen and pelvis with contrast Comparison: None Findings: Bibasilar atelectatic/dependent changes Cholelithiasis with layering small stones within the gallbladder. No pericholecystic fluid or gallbladder wall thickening. Remainder of the solid organs are within normal limits. Postsurgical changes related to bariatric surgery as well as ventral hernia repair changes. Bowel loops are nondilated. Scattered diverticulosis of the descending and sigmoid colon without evidence of diverticulitis. Pelvic contents unremarkable. Normal appendix. The bones are intact. IMPRESSION: No acute findings. Postsurgical changes related to bariatric surgery and ventral hernia repair, grossly unremarkable. Bowel loops are nondilated. Cholelithiasis. Scattered diverticulosis of the descending and sigmoid colon. This document has been electronically signed by: Jessica Ladd MD on 03/26/2025 22:28:56
[2025-03-26 18:20] VITALS: BP 145/72; PULSE 73; RESP 18; TEMP 36.6; O2SAT 99
--- NOTE | 2025-03-26 18:30 | ED.GENADULT ---
HPI - General Adult General Chief complaint: Abdominal Pain Stated complaint: Abdominal Pain Time Seen by Provider: 03/26/25 20:55 History of Present Illness ED Provider: Andre STRAUSS narrative: The patient is a 70-year-old male who has a history of surgery for umbilical hernia repair. He also has a history of a sleeve gastrectomy in 2020 with a redo of his umbilical hernia repair. He comes to the emergency room today because of abdominal pain that started this morning. It is midabdominal pain. It is also slightly above the umbilicus. Also possibly slightly to the right. This is the 1st time in a long time that he has had any significant abdominal pain and he comes to the emergency room for evaluation. He says the pain has been waxing and waning. He has had no associated vomiting or diarrhea. No fevers. Related Data Home Medications ?Medication ?Instructions ?Recorded ?Confirmed atorvastatin 20 mg tablet 20 mg PO BEDTIME 11/04/20 07/11/24 ascorbic acid (vitamin C) 250 mg 250 mg PO QAM 04/23/21 07/11/24 tablet pen needle, diabetic 32 gauge x #50 ea 04/23/21 07/11/24 tiotropium bromide 18 mcg capsule 1 cap inhalation DAILY 04/23/21 07/11/24 with inhalation device celebrate MVI PO DAILY 04/20/22 07/11/24 omeprazole 20 mg capsule,delayed 20 mg PO DAILY 07/28/22 07/11/24 release nebulizers 03/09/23 07/11/24 apixaban 5 mg tablet (Eliquis) 5 mg PO BID 05/02/24 07/11/24 midodrine 2.5 mg tablet 2.5 mg PO 05/02/24 07/11/24 trazodone 100 mg tablet 100 mg PO BEDTIME 05/02/24 07/11/24 folic acid 1 mg tablet 1 mg PO QAM 05/19/24 07/11/24 Previous Rx's ?Medication ?Instructions ?Recorded ipratropium 0.5 mg-albuterol 3 mg 3 ml inhalation Q6H PRN shortness 09/12/20 (2.5 mg base)/3 mL nebulization of breath or wheezing #15 mL soln acetaminophen 500 mg tablet 1,000 mg (2 x 500 mg) PO Q6H PRN 06/16/21 (Tylenol Extra Strength) pain #30 tabs albuterol sulfate 90 mcg/actuation 2 inh inhalation Q6H PRN shortness 03/09/23 aerosol inhaler of breath or wheezing 30 days #18 grams simethicone 80 mg chewable tablet 80 mg PO BID-QID PRN abdominal 01/13/24 (Gas Relief (simethicone)) distention #90 tabs cholecalciferol (vitamin D3) 50 50 mcg PO DAILY #90 caps 08/07/24 mcg (2,000 unit) capsule fluticasone fur. 100 mcg-umeclid 1 inh inhalation DAILY 30 days #60 08/07/24 62.5 mcg-vilant 25 mcg ea inhalat.powder (Trelegy Ellipta) vitamin A palmitate 3,000 mcg 10,000 unit PO DAILY #90 caps 10/23/24 (10,000 unit) capsule zinc gluconate 30 mg tablet 30 mg PO DAILY #90 tabs 10/23/24 ipratropium 0.5 mg-albuterol 3 mg 3 ml inhalation BID 30 days #180 mL 03/07/25 (2.5 mg base)/3 mL nebulization soln Allergies Allergy/AdvReac Type Severity Reaction Status Date / Time aspirin [Aspirin] Allergy Mild SWELLING Verified 03/26/25 18:21 Penicillins Allergy Mild SWELLING Verified 03/09/25 10:34 Review of Systems Review of Systems: Yes all other systems are reviewed and are negative [facility] Past Medical History Medical History Chronic restrictive lung disease Pulmonary nodules COVID-19 vaccine series completed Arthritis Asthma Vitamin D deficiency HLD (hyperlipidemia) T2DM (type 2 diabetes mellitus) Anxiety Depression Venous insufficiency Hypertension COPD (chronic obstructive pulmonary disease) Surgical History History of repair of hiatal hernia Status post laparoscopic sleeve gastrectomy History of esophagogastroduodenoscopy (EGD) History of umbilical hernia repair H/O colonoscopy with polypectomy Family History Family History Father CVD (cardiovascular disease) Heart disease Mother Heart disease CVD (cardiovascular disease) Brother Cancer Brother Cancer Brother Heart attack Sister CVD (cardiovascular disease) Diabetes mellitus Hypertension Arthritis Social History Social History Are you a primary neonatal intensive care nurse to a significant other at home: No Do you presently have visiting nurse or other home services: Yes ([employer]-daughter) Alcohol intake: never Comment: no facial grimacing, medicated in pacu numerous times, pain scale explained Patient Tobacco Use Status: Former Tobacco user Tobacco use type: Cigarette Advance Directives Date on File: 06/27/21 service: No Current occupational status: unemployed Physical Exam ED Vital Signs: Vital Signs - 24 hr 03/26/25 18:20 03/26/25 21:24 03/26/25 23:06 Temperature 97.8 F 97.9 F 97.7 F Pulse Rate 73 82 65 Respiratory Rate 18 16 18 Blood Pressure 145/72 H 156/81 H 131/64 Pulse Oximetry 99 99 100 Oxygen Delivery Method Room Air Room Air Room Air 03/26/25 23:16 Temperature 97.7 F Pulse Rate 65 Respiratory Rate 18 Blood Pressure 131/64 Pulse Oximetry 100 Oxygen Delivery Method Room Air BMI result Body Mass Index 30.0 Const Orientation/consciousness: patient oriented x3 HENMT Other: The patient is awake and alert. He is pleasant and cooperative. He does not appear acutely ill. Eyes General: appearance normal, both eyes and all related structures Neck Neck: Yes normal visual inspection, Yes full ROM and Yes no JVD Resp Effort & Inspection: normal respiratory effort Auscultation: clear to auscultation bilaterally Cardio Rate: regular rate Rhythm: regular rhythm Heart sounds: S1 normal heart sound present and S2 normal heart sound present GI Other: The patient's abdomen is soft. He reports tenderness in the midabdomen from the umbilicus to the epigastrium and in the right upper quadrant. He has no right lower quadrant tenderness. Although the patient reports tenderness he does not have obvious objective findings of tenderness. There was no apparent rebound or guarding. I do not appreciate any masses or hernias. Skin General skin exam: no rashes or lesions noted Neuro General: patient oriented x3, gait normal, tone normal, moves all extremities, no focal motor deficits and CN's II-XI intact bilaterally Extrem General: Yes no pedal edema and Yes no calf tenderness Course Course Course Narrative: RME performed by Marni Carcamo PA-C. Patient is a 70 year old assigned male at presenting to the emergency department with abdominal pain and concern for a hernia. Patient states that he had a hernia repaired many years ago and his incision is exactly where it hurts. Detailed physical exam and review of systems are deferred to the arabic translator. Labs ordered. Patient placed back in the waiting room pending room availability and results. Medications Administered Discontinued Medications Generic Name Dose Route Start Last Admin Trade Name Freq PRN Reason Stop Dose Admin Sodium Chloride 1,000 mls @ 999 mls/hr 03/26/25 21:45 03/26/25 22:03 Ns IV 03/26/25 22:45 999 mls/hr .Q1H1M ROSS Administration Iohexol 85 ml 03/26/25 22:01 03/26/25 22:01 Iohexol 350 Mg/Ml 100 Ml Infus..Btl IV 03/26/25 22:02 85 ml ONCE ONE Administration Medical Decision Making Medical Decision Making MDM Narrative: The patient is a 70-year-old male with a history of umbilical hernia repair surgery x2 and also sleeve gastrectomy bariatric surgery. He presents with midabdominal pain primarily in the region of the epigastrium and in the midline above the epigastrium where he has tenderness. He is also tender in his right upper quadrant. He says he has known gallstones. His labs are unremarkable. A CT scan of the abdomen and pelvis was read as essentially negative for acute findings. I think there may be a small fat filled ventral hernia just above the mesh from his previous umbilical hernia repair surgery but there is no other acute finding. Clinically the patient looks well. I think he may be discharged to follow up with the bariatric surgery office as an outpatient. He should return if worse. Lab Data 03/26/25 18:48 03/26/25 18:48 Labs: Lab Results 03/26/25 Range/Units 18:48 WBC 4.8 (4.8-10.8) X10*3/uL RBC 4.35 L (4.60-5.80) X10*6/uL Hgb 13.5 L (14.0-18.0) g/dl Hct 41.5 L (42.0-52.0) % MCV 95.4 (80.0-98.0) fL MCH 31.0 (27.0-33.0) pg MCHC 32.5 (31.0-36.0) g/dl RDW 11.9 (11.0-16.0) % Plt Count 215 (160-400) X10*3/uL MPV 9.7 (9.4-12.4) fL Immature Gran % (Auto) 0.2 (0.0-0.4) % Neut % (Auto) 52.1 (45-73) % Lymph % (Auto) 35.8 (20-40) % [place] % (Auto) 6.5 (2-11) % Eos % (Auto) 4.8 H (0-4) % Baso % (Auto) 0.6 (0-2) % Lymph # (Auto) 1.7 (1.2-4.9) X10*3/uL [place] # (Auto) 0.3 (0.1-1.2) X10*3/uL Eos # (Auto) 0.2 (0.0-0.4) X10*3/uL Baso # (Auto) 0.0 (0.0-0.2) X10*3/uL Abs Immat Gran (auto) 0.01 (0.00-0.03) X10*3/uL Absolute Neuts (auto) 2.5 (2.0-8.3) x10*3/uL Absolute Nucleated RBC 0.000 (0.0-0.012) X10*3/uL Nucleated RBC % (auto) 0.0 (0.0-0.2) /100WBC Sodium 142 (135-145) mmol/L Potassium 4.1 (3.3-5.1) mmol/L Chloride 106 (96-108) mmol/L Carbon Dioxide 30 H (22-29) mmol/L Anion Gap 10 L (12-20) BUN 17 H (9-16) mg/dL Creatinine 1.39 (0.5-1.4) mg/dL Estim Creat Clear Calc 54.4 Estimated GFR 51 Random Glucose 117 H (60-115) mg/dL Calcium 9.0 (8.4-10.2) mg/dL Magnesium 2.0 (1.6-2.6) mg/dL Total Bilirubin 0.7 (0.0-1.0) mg/dL AST 25 (5-37) U/L ALT 13 (0-40) U/L Alkaline Phosphatase 120 H (39-117) U/L Total Protein 6.9 (6.5-8.0) g/dL Albumin 3.9 (3.5-5.0) g/dL Lipase 14 (8-78) U/L Discharge Plan Discharge Clinical Impression: Abdominal pain, History of bariatric surgery Patient Disposition: Home, Self-Care Additional Instructions: The CAT scan today does not show any acutely dangerous process. You may have a small, fat containing ventral hernia but this is not dangerous. No dangerous process is seen on your CAT scan. You may use acetaminophen (Tylenol) as needed for pain. Please follow up with the bariatric surgery office to discuss your symptoms further. Return to the emergency room if significantly worse. Prescriptions: No Action Trelegy Ellipta 100-62.5-25 mcg blister with device 1 inh inhalation DAILY 30 Days Qty: 60 11RF cholecalciferol (vitamin D3) 50 mcg (2,000 unit) capsule 50 mcg PO DAILY Qty: 90 3RF vitamin A palmitate 3,000 mcg (10,000 unit) capsule 10,000 unit PO DAILY Qty: 90 3RF zinc gluconate 30 mg tablet 30 mg PO DAILY Qty: 90 3RF ipratropium-albuterol 0.5 mg-3 mg(2.5 mg base)/3 mL solution for nebulization 3 ml inhalation BID 30 Days Qty: 180 11RF ipratropium-albuterol 0.5 mg-3 mg(2.5 mg base)/3 mL solution for nebulization 3 ml inhalation Q6H PRN (Reason: shortness of breath or wheezing) Qty: 15 0RF atorvastatin 20 mg tablet 20 mg PO BEDTIME acetaminophen [Tylenol Extra Strength] 500 mg tablet 1,000 mg PO Q6H PRN (Reason: pain) Qty: 30 1RF tiotropium bromide 18 mcg capsule, w/inhalation device 1 cap inhalation DAILY ascorbic acid (vitamin C) 250 mg tablet 250 mg PO QAM (DME) pen needle, diabetic 32 gauge x /32 needle See Rx Instructions .ROUTE .MEDSUPPLY Qty: 50 Rx Instructions: As directed celebrate MVI PO DAILY (DME) nebulizers Misc See Rx Instructions .Route Rx Instructions: As directed albuterol sulfate 90 mcg/actuation HFA aerosol inhaler 2 inh inhalation Q6H PRN (Reason: shortness of breath or wheezing) 30 Days Qty: 18 12RF omeprazole 20 mg capsule,delayed release(DR/EC) 20 mg PO DAILY simethicone [Gas Relief (simethicone)] 80 mg tablet,chewable 80 mg PO BID-QID PRN (Reason: abdominal distention) Qty: 90 3RF folic acid 1 mg tablet 1 mg PO QAM Eliquis 5 mg tablet 5 mg PO BID trazodone 100 mg tablet 100 mg PO BEDTIME midodrine 2.5 mg tablet 2.5 mg PO Referrals: [facility] [Provider Group] Krysta Lockett FNP [Nurse Practitioner] - Interventions: ED Discharge Assessment Last Done: 03/26/25 23:16 Discharge Date/Time: 03/26/25 23:16 Print Language: Lebanese
--- NOTE | 2025-03-26 18:31 | ECG_ITS ---
Test Reason : EPIGASTRIC PAIN Blood Pressure : */* mmHG Vent. Rate : 67 BPM Atrial Rate : 67 BPM P-R Int : 162 ms QRS Dur : 76 ms QT Int : 404 ms P-R-T Axes : 60 61 78 degrees QTcB Int : 426 ms Normal sinus rhythm Nonspecific T wave abnormality Abnormal ECG When compared with ECG of 22-Sep-2022 11:46, No significant change was found Referred By: Marni Carcamo Electronically Signed By: Cornell Anne
[2025-03-26 19:00] LABS: MANUAL DIFF FLAG NO
[2025-03-26 19:01] LABS: Basophils Percent Auto 0.6 % (0-2); Eosinophils Absolute Auto 0.2 X10*3/uL (0.0-0.4); Eosinophils Percent Auto 4.8 % (0-4); Hematocrit 41.5 % (42.0-52.0); Hemoglobin 13.5 g/dl (14.0-18.0); Imm Gran Abs Auto 0.01 X10*3/uL (0.00-0.03); Imm Gran Pct Auto 0.2 % (0.0-0.4); Lymphocytes Absolute Auto 1.7 X10*3/uL (1.2-4.9); Lymphocytes Percent Auto 35.8 % (20-40); Mean Corpuscular HGB Conc 32.5 g/dl (31.0-36.0); Mean Corpuscular Volume 95.4 fL (80.0-98.0); Mean Platelet Volume 9.7 fL (9.4-12.4); Monocytes Absolute Auto 0.3 X10*3/uL (0.1-1.2); Monocytes Percent Auto 6.5 % (2-11); Neutrophils Absolute Auto 2.5 x10*3/uL (2.0-8.3); Neutrophils Percent Auto 52.1 % (45-73); Platelet Count 215 X10*3/uL (160-400); Red Blood Count 4.35 X10*6/uL (4.60-5.80); Red Cell Distribution Width 11.9 % (11.0-16.0); White Blood Count 4.8 X10*3/uL (4.8-10.8)
[2025-03-26 19:23] LABS: Alanine Aminotransferase 13 U/L (0-40); Albumin Level 3.9 g/dL (3.5-5.0); Alkaline Phosphatase 120 U/L (39-117); Anion Gap 10 (12-20); Aspartate Amino Transferase 25 U/L (5-37); Bilirubin Total 0.7 mg/dL (0.0-1.0); Blood Urea Nitrogen 17 mg/dL (9-16); Carbon Dioxide 30 mmol/L (22-29); Chloride 106 mmol/L (96-108); Creatinine Clr Calc Pharmacy 54.4; Estimated Glomerular Filt Rate 51; Glucose Random 117 mg/dL (60-115); Lipase 14 U/L (8-78); Potassium 4.1 mmol/L (3.3-5.1); Sodium 142 mmol/L (135-145); Total Protein 6.9 g/dL (6.5-8.0)
--- OUTSIDE RECORDS SUMMARY | 2025-03-26 20:21 | XMS_ITS | Clinical Summary ---
Author Organization [facility] Facility Address [address] [address] Care Team Providers Care Balancer Scale Name Role Phone Unavailable Primary Care Provider [...] % PVNMA 08/21/2020 us [facility] Conversion LAB [id number] LICITED RESULTS Final Result PVNMA from Last 3 Months or Most Recently Relevant to Health Maintenance Insurance Medicaid [place] Medicare Medicaid [place] Medicare
--- OUTSIDE RECORDS SUMMARY | 2025-03-26 20:21 | XMS_ITS | Data Portability ---
Author Organization [facility] in - [employer] Address [address] [place] [phone] Care Team Providers Care Machine Staker Name Role Phone HIM [facility] Primary Care Provider [phone] Assessment Encounter Date Assessment Date Assessment LastModified by Organization Details LastModified Time 01/19/2025 01/19/2025 I provided real -time medical direction via phone for this encounter and was available for additional phone-based assistance as needed. I have reviewed and agree with the Assessment and Plan as documented by the Route Delivery Service Driver. Patient given the opportunity to ask questions. Our service contacted for an assessment of: elevated BG As per above, patient with elevated BG and went to see his doctor today to obtain blood work to see what medications he can be started on. He is eating and drinking normally. No polyuria, polydipsia or polyphagia. No unusual weight loss. Per marketing assistant on the scene, VSS, BG 157 [...] Assessment and Plan as documented by the Route Delivery Service Driver. We discussed the diagnostic uncertainty of home [...] call 911- verbalized understanding of instructions vis shoe trimmer [email or web address] Not available 01/23/2025 18:01:10 Plan of Treatment Reminders Order Date Submit Date Provider Last Modified By Organization Details Last Modified Time Details Appointments None recorded. Lab glucose, fingerstick , blood 2024 025 [email or web address] 0 [facility], [address] [place] [address], [phone] 17:26:47 urinalysis, dipstick [address], [phone] 09:16:17 glucose, fingerstick , blood [address], [phone] 19:19:25 Referral None recorded. Procedures None recorded. Surgeries None recorded. Imaging None recorded. Medication Orders acetaminoph en 500 mg tablet 2024 025 [email or web address] 0 [id number], [address], [place], [phone], 17:34:06 Patient TargetsNo targets recorded. Patient InstructionsNo instructions recorded. Reason for Referral None Reported. Results Created Date Observation Date Name Description Value Unit Range Abnormal Flag Note LastModifiedBy Organization Detail LastModifiedTime 01/20/2001/19/2025 glucbrown newton se rstic k, blood Blood Glucose: mg/dl 157 Not Available [address], [phone] 01/19/2025 17:07:38 01/24/2001/23/2025 gluco ruel florese rstic k, blood Blood Glucose: mg/dl 118 Not Available [facility] [address] [place] [address], [phone] 01/23/2025 17:26:29 Result Notes None recorded. Medical Equipment None Reported. Allergies Allergen ID Allergen Name Allergen Category Reaction Reaction Severity Criticality Documentation Date Start Date Code Code System Note Provider Name and Address Organization Details Recorded Time 91556 aspirin medicatio n Not available Not available Not available 01/17/2025 1191 RxNorm Not Available [facility] - production 16:33:47 20999 Product containin g penicilli n (product) medicatio n Not available Not available Not available 01/17/2025 93063 8001 SNOMED Not Available [facility] - production 16:33:47 09418 Non-stero idal anti-infl ammatory agent (product) medicatio n Not available Not available Not available 01/17/2025 27717 005 SNOMED Not Available [facility] - production [...] Updated DateTime 5 99 % 99 % 18323.4 8 g 177.8 cm 67 /min 16 /min 155 mm[Hg] 74 mm[Hg] Not Available [employer] 16:59:59 Date Recorded Body weight Body mass index (BMI) Provider Name and Address Organization Details Last Updated DateTime 01/23/2025 80860.55 g 27.3 kg/m2 Kerrie Kerr MD [address] [place] [address],[address] [facility], [place], [phone], [place] - [employer] 01/23/2025 17:55:55 Date Recorded Respiratory rate Heart rate Body height Oxygen saturation Oxygen saturation in Arterial blood by Pulse oximetry Body temperature Systolic blood pressure Diastolic blood pressure Provider Name and Address Organization Details Last Updated DateTime 5 18 /min 64 /min 177.8 cm 98 % 98 % 98.7 [degF] 146 mm[Hg] 81 mm[Hg] Not Available [employer] 17:24:57 Social History None recorded. Functional Status None recorded. Mental Status None recorded. Family History Nothing Reported. Medical History No medical history recorded. Past Encounters Encounter ID Performer Location Encounter Start Date Encounter Closed Date Diagnosis/Indication Diagnosis SNOMED-CT Code Diagnosis ICD10 Code Diagnosis Note [id number] Sandra Olvera MD [facility] [address] [place] [phone] 01/19/2025 16:25:38 01/22/2025 22:06:20 Hyperglycemia 98310479 R73.9 [id number] Kerrie Kerr MD Main - [facility] [address] [place] [phone] 01/23/2025 17:24:55 01/23/2025 19:49:59 Type 2 diabetes mellitus 94614860 E11.9 w/ mild headache- c/o urinary frequency [...] Recorded Advance Directives Directive None Recorded Payers Insurance Date Sequence Insurance Name Policy Number Policy Jones Covered Member ID Jones Member ID Guarantor Name 01/30/2025 1 [facility] - DOS ON OR AFTER 2023 - DUAL ELIGIBLE - DETENTION OPTIONS AND ONE CARE (MEDICARE REPLACEMENT/ADV ANTAGE - HMO) Armando Gay [id number] Armando Gay Notes Date Note Type Note [...] Reflux Disease (GERD), Hyperthyroidism PMH Reviewed at 01/17/2025:33 Allergies Reviewed at 01/17/2025:33 Comments: [facility] reviewed Route Delivery Service Driver Organization Information for Waqas Wright [employer] Legal Name: [employer]? Address: [address] [place] [address], Bottling Supervisor: Andrew Woo MD [facility] No.: [id number] Route Delivery Service Driver POC Test Results from Waqas Wright [employer] Blood Glucose Measurement (17:03:58) Blood Glucose: 157 mg/dL ....................... ....................... ....................... ....................... ....................... ....................... ... Route Delivery Service Driver Note From Waqas Wright: DELMER makes pt contact. He is standing in his doorway watching for [facility] arrival. He is generally well appearing and walks and moves w/o hinderance. No ashen or maguire color is noted, his chest rises and falls softly w/ respirations w/ no stridor or sonorous respirations present. No facial droop, one-sided weakness, or slurred speech are observed and he is not bleeding anywhere. Pt is Malaysian-speaking only and daughter is on scene for [...] Pt consents to treatment and evaluation today. [facility] obtains pt consent, vital signs are gathered, and pt is assessed. Lung sounds are clear and equal to auscultation, abdomen is soft and nontender, w/ no guarding, distension, or pulsating masses, bilateral LE's have 1+ edema. FSBS is obtained and is 157. [facility] contacts [facility] and discusses the above. [facility] recommends pt wait on results of his lab work as his physical exam and vital signs are noted life-threatening or concerning at this time. [facility] informs pt to seek emergency room care if he develops a high fever, n/v/d he can't control, bloody emesis or stools, cp, or sob. Daughter translates and pt expresses his verbal understanding. [facility] is clear. Report completed by TUNDE Wright [id number]. [facility] Lab Orders: glucose, fingerstick, blood: Performed ....................... ....................... ....................... ....................... ....................... ....................... ... [facility] Consulted: Sandra Olvera ....................... ....................... ....................... ....................... ....................... ....................... ... Disposition: Fulfilled Sandra Olvera MD [address] [place] [address],[address], [place], [phone] 01/19/2025 19:15:09 01/23/2025 text/html CRC Nurse Triage [...] - 16:07Allergies Reviewed at 01/23/2025 - 16:07Comments: Tool Die Maker verified the patient's name//address and phone number. [...] emergency treatment if needed -Alexander Mims RN Route Delivery Service Driver Organization Information for Janice Pinedo Legal Name: [employer].?Address: [address] [place] [address], USMedical Director: Andrew LOPES No.: [id number] Route Delivery Service Driver POC Test Results from Janice Pinedo Blood [...] - 16:07Allergies Reviewed at 01/23/2025 - 16:07Comments: Tool Die Maker verified the patient's name//address and phone number. [...] emergency treatment if needed -Alexander Mims RN Route Delivery Service Driver Organization Information for Janice Pinedo Legal Name: [employer].?Address: [address] [place] [address], USMedical Director: Andrew LOPES No.: [id number] Route Delivery Service Driver POC Test Results from Janice Pinedo Blood [...] ....................... ....................... ....................... ....................... ....................... ....................... ... Route Delivery Service Driver Note From Janice Pinedo: Sent to a call for a pt complaining of high blood sugar. SC8 arrives on scene, pt is alert and oriented, airway is patent. Pt speaks Malaysian, and pt's daughter (via phone) serves as shoe trimmer. Pt complains of high blood sugar x [...] unremarkable; Extremities: unremarkable; Skin: pink, warm, dry; [facility] consulted and orders urine dip and Tylenol 1gm PO. Pt advised not to exceed Tylenol 3gms daily. Urine sample obtained via clean catch; Urine dip results: uploaded to [employer]; Tylenol 1gm PO administered without incident. Pt is advised to eat protein with carbs, avoid fried foods, and given food alternatives for better diabetic diet. Pt is reassured urine has no glucose or ketones. Pt is advised to follow up with PCP regarding treatment plan. Red flags discussed. Pt/family has no further questions. [facility] Lab Orders: glucose, fingerstick, blood: Performed urinalysis, dipstick: Performed [facility] Medication Orders: acetaminophen 500 mg tablet: Administered ....................... ....................... ....................... ....................... ....................... ....................... ... [facility] Consulted: Kerrie Kerr .Seema.................... ....................... ....................... ....................... ....................... ....................... ... Disposition: Fulfilled Kerrie Kerr MD [address] [place] [address],[address], [place], [phone], DARREN SALINAS 01/23/2025 19:12:43
--- OUTSIDE RECORDS SUMMARY | 2025-03-26 20:21 | XMS_ITS | Clinical Summary ---
Author Organization [facility] Address [address] [place] [address] Care Team Providers Care Salesperson Neckties Name Role Phone Unavailable Primary Care Provider [...]
[2025-03-26 21:24] VITALS: BP 156/81; PULSE 82; RESP 16; TEMP 36.6; O2SAT 99
[2025-03-26] MEDS: iohexoL 350 MG/ML 100 ML INFUS..BTL 85 ML IV (22:01)
[2025-03-26] MEDS: 0.9 % Sodium Chloride 1,000 ML 999 ML IV (22:03)
--- NOTE | 2025-03-26 22:43 | PC.NURSE ---
Patient is a 70 yo male who presents with elisa-umbilical abdominal pain. Denies n/v/d. He has H/O hypertension, DM, umbilical hernia and underwent gastric surgery with significant weight loss. Alert and oriented. Primarily slovenian speaking. Lungs clear bilat. Respirations even and non-labored. Abdomen soft, with positive bowel sounds. No significant tenderness noted. Positive pedal pulses with no edema.
[2025-03-26 23:06] VITALS: BP 131/64; PULSE 65; RESP 18; TEMP 36.5; O2SAT 100
--- NOTE | 2025-03-26 23:14 | PC.NURSE ---
Took over care from Ofelia Bernal, reviewed discharge instructions with pt. pt verbalized understanding, no sign of distress, pt ambulated per mar.
[2025-03-26 23:16] VITALS: BP 131/64; PULSE 65; RESP 18; TEMP 36.5; O2SAT 100
== END 2025-03-26 23:16 | disposition home or self-care (01) ==
PROVIDERS: Physician Assistant Medical; Emergency Provider Emergency Medicine
DX: R10.13 Epigastric pain (principal); R10.2 Pelvic and perineal pain; R11.0 Nausea; R94.31 Abnormal electrocardiogram [ECG] [EKG]; Z98.84 Bariatric surgery status; Z79.899 Other long term (current) drug therapy
CPT/HCPCS: 36415; 74177; 80053; 83690; 83735; 85025; 93005; 96360; 99284; 99285; Q9967

== ENCOUNTER → 2025-03-26 18:31 | Outpatient (BNV) | payer OTHER, SELFPAY | PROVIDERS: Emergency Provider Emergency Medicine; Visit Provider Internal Medicine Cardiovascular Disease | DX: R94.31 Abnormal electrocardiogram [ECG] [EKG] (principal); R10.13 Epigastric pain | CPT/HCPCS: 93010 ==

== ENCOUNTER → 2025-03-26 21:33 | Outpatient (BNV) | payer OTHER, SELFPAY | PROVIDERS: Emergency Provider Emergency Medicine; Visit Provider Student in an Organized Health Care Education/Training Program | DX: K80.20 Calculus of gallbladder without cholecystitis without obstruction (principal); K57.30 Diverticulosis of large intestine without perforation or abscess without bleeding | CPT/HCPCS: 74177 ==

== ENCOUNTER 2025-03-30 13:55 | Outpatient (AMB) | payer OTHER, SELFPAY ==
--- OUTSIDE RECORDS SUMMARY | 2025-03-30 13:57 | XMS_ITS | Clinical Summary ---
Author Organization [employer] Address [address] [place] [address] [address] [place] [address] Care Team Providers Care Lotteries Agent Name Role Phone Krysta Lockett [employer] Primary Care Provider [phone] Allergies Active Allergy Reactions Criticality Noted Date [...] EVERY DAY 48 g 11/29/19 24 Active Fluticasone-Salm eterol 100-50 MCG/ACT aerosol powderIndication s:Chronic obstructive pulmonary disease, unspecified COPD type ([facility]) INHALE 1 PUFF TWICE DAILY. RINSE MOUTH AFTER USING. 60 each 11 01/28/20 24 Active glucose 4 g chewable tabletIndication s:Type 2 diabetes mellitus with hypoglycemia without coma, without long-term current use of insulin ([facility]) Chew 4 tablets (16 g) if needed for low blood sugar. 50 tablet 12 06/28/20 24 025 Active Diclofenac Sodium 1 % gelIndications:O ther chronic pain Apply topically to affected areas twice daily 150 g 06/28/20 24 Active Continuous Glucose Sensor (FreeStyle Iglesia 2 Sensor) miscIndications: Type 2 diabetes mellitus with hypoglycemia without coma, without long-term current use of insulin ([facility]) Apply 1 sensor every 14 days 2 each 2 06/30/20 24 Active Continuous Glucose Flag Decorator (FreeStyle Iglesia 2 [place]) deviceIndication s:Type 2 diabetes mellitus with hypoglycemia without coma, without long-term current use of insulin ([facility]) Scan sensor every 8 hours 1 each 06/30/20 24 Active folic acid (Folvite) 1 MG tabletIndication s:Stage 3a chronic kidney disease ([facility]) TAKE 1 TABLET BY MOUTH EVERY MORNING [...] MEAL 90 capsule 1 08/23/20 24 Active Blood Pressure kitIndications:E levated blood pressure reading 1 kit 1 (one) time per week. 1 kit 01/20/20 25 Active Dulaglutide (Trulicity) 0.75 MG/0.5ML solution auto-injectorInd ications:Type 2 diabetes mellitus with hypoglycemia without coma, without long-term current use of insulin (CMS/HCC) Inject 0.75 mg under the skin 1 (one) time per week. 2 mL 1 02/29/20 25 026 Active sildenafil (Viagra) 25 MG tabletIndication s:Erectile dysfunction, unspecified erectile dysfunction type Take 1 tablet (25 mg) by mouth if needed each day for erectile dysfunction. 1 hour before sexual activity 30 tablet 02/29/20 25 Active traZODone (Desyrel) 100 MG tablet TAKE 1 TABLET BY MOUTH AT BEDTIME 30 tablet 5 03/09/20 25 Active Eliquis 5 MG tabletIndication s:Acute deep vein thrombosis (DVT) of other vein of lower extremity, unspecified laterality (CMS/HCC) TAKE 1 TABLET BY MOUTH TWICE DAILY ONCE EVERY MORNING AND ONCE EVERY NIGHT AT BEDTIME 60 tablet 3 03/28/20 25 Active traZODone (Desyrel) 100 MG tablet TAKE 1 TABLET BY MOUTH AT BEDTIME 30 tablet 5 09/04/20 24 025 Discontinued Eliquis 5 MG tabletIndication s:Acute deep vein thrombosis (DVT) of other vein of lower extremity, unspecified laterality (CMS/HCC) TAKE 1 TABLET BY MOUTH TWICE DAILY ONCE EVERY MORNING AND ONCE EVERY NIGHT AT BEDTIME 60 tablet 3 11/24/19 25 025 Discontinued Active Problems Problem Noted [...] no improvement -gave today to pt # [phone] of his vascular office to call and reschedule apt --I called today as well Dr Beckham's office and left my phone number for a call back from vascular -referred to cards to r/o cardiac etiology -tylenol prn x pain in legs -raise legs -continue use of pneumatic compression -alarm signs and symptoms explained Venous insufficiency 12/23/2022 Overview (12/23/2022): ?? Followed by [facility] vascular ?? Negative [...] 12/15/2022 Overview (12/23/2022): ?? Followed by [facility] Dr. 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 Date Type Department Care Team Description 03/28/2025 Telephone [facility] [address] [place] [phone] Krysta Lockett FNP stable lab letter 03/28/[address] [address] Krysta Lockett FNP Acute deep vein thrombosis (DVT) of other vein of lower extremity, unspecified laterality (CMS/HCC) 03/27/[address] [address] Krysta Lockett FNP ER Follow-up 03/26/2025 5:40 PM EDT Office Visit [facility] [address] [place] [phone] Jess Manrique MD Status post bariatric surgery (Primary Dx); Stage 3 chronic kidney disease, unspecified whether stage 3a or 3b CKD (CMS/HCC); Abdominal wall hernia; Primary hypertension 03/26/2025 Telephone [facility] [address] [place] [address] Manju France, ESTEE WIC triage 03/26/2025 Telephone [facility] [address] [place] [address] Krysta Lockett FNP Nurse Triage 03/07/2025 Refill [facility] [address] [place] [address] Krysta Lockett FNP 03/06/2025 Telephone [facility] [address] [place] [phone] Krysta Lockett FNP Letter for School/Work 02/28/2025 10:15 AM EDT Office Visit [address] [address] Krysta Lockett FNP Type 2 diabetes mellitus with hypoglycemia without coma, without long-term current use of insulin ([facility]) (Primary Dx); Erectile dysfunction, unspecified erectile dysfunction type 02/28/2025 Travel 01/26/2025 Telephone [facility] [address], [place] [phone] Krysta Lockett FNP [employer] 01/19/2025 3:30 PM EDT Office Visit [address] [address] Kadie Salazar NP Elevated blood pressure reading (Primary Dx); Type 2 diabetes mellitus without complication, without long-term current use of insulin ([facility]); Dietary counseling; Exercise counseling 01/19/[address] [address] Kadie Salazar NP Type 2 diabetes mellitus with hypoglycemia without coma, without long-term current use of insulin (CMS/HCC) 01/19/2025 Travel 01/17/2025 Telephone [facility] [address] [place] [phone] Krysta Lockett FNP Nurse Triage from Last 3 Months Immunizations Immunization Administration Dates Next Due Hep B, adult [...] Sign Reading Time Taken Comments Blood Pressure 176/94 03/26/2025 5:22 PM EDT auto cuff, sitting, right arm Pulse 62 03/26/2025 5:22 PM EDT Temperature 36.5 ??C (97.7 ??F) 03/26/2025 5 :22 PM EDT Respiratory Rate 20 03/26/2025 5:22 PM EDT Oxygen Saturation 100% 03/26/2025 5:2 2 PM EDT Inhaled Oxygen Concentration - - Weight 89.8 kg (198 lb) 03/26/2025 5:22 PM EDT Height 177.8 cm (5' 10 ) 03/26/2025 5:2 2 PM EDT Body Mass Index 28.41 03/26/2025 5:22 PM EDT Plan of Treatment Health Maintenance Due Date Last Done Comments CT Colonography 1955 FIT DNA/Cologuard 1955 FIT 1955 FOBT 1955 Sigmoidoscopy 1955 Diabetes: Foot Exam 1966 Eye Exam 1966 Alcohol/Substance Use Screening 1968 RSV Patients and Patients Aged 60 years or older (1 - Risk 60-74 years 1-dose series) 2016 Colonoscopy 07/18/2022 07/18/2019 Colorectal Cancer Screening 07/18/2022 COVID-19 Vaccine ( season) 2025 07/15/2024, 09/10/2023, 10/15/2021, Additional history exists Diabetes: Urine Protein Screening 03/13/2025 03/13/2024, 12/08/2023, 04/23/2021, Additional history exists Diabetes: Hemoglobin A1C 07/22/202501/19/2 025, 06/28/2024, 12/08/2023, Additional history exists Depression Screening 02/28/2026 02/28/2025, 02/29/20 25 SDOH Screening 02/28/2026 02/28/2025 Lipid Panel 03/01/2026 03/01/2025, 04/08, 12/15/2022, Additional history exists Tobacco Screening 03/26/2026 03/26/2025 DTaP/Tdap/Td Vaccines (3 - Td or Tdap) 12/08/2033 12/08/2023, 09/26/2013, 12/20/2012, Additional history exists Hepatitis B Vaccines Completed 11/19/2014, 09/18/2014, 03/15/2014 Hepatitis C Screening Completed 12/15/2022 Zoster Vaccines Completed 09/02/2023, 06/09, 07/28/2017 Pneumococcal Vaccine: 50+ Years Completed 12/08/2023, 04/24/2021, 09/22/2010, Additional history exists Influenza Vaccine Completed 07/15/2024, [...] Name Priority Date/Time Associated Diagnosis Comments POCT URINALYSIS DIPSTICK Routine 03/26/2025 5:27 PM EDT Stage 3 chronic kidney disease, unspecified whether stage 3a or 3b CKD (CMS/HCC) AMB REFERRAL TO UROLOGY Routine 03/26/2025 5:27 PM EDT Erectile dysfunction, unspecified erectile dysfunction type LIPID PANEL, STANDARD Routine 03/01/2025 2:50 PM [...] Relevant to Health Maintenance Results * (ABNORMAL) POCT Urinalysis (03/26/2025 5:27 PM EDT) Color, UA Yellow Clarity, UA Clear Glucose, UA Negative Bilirubin, UA Negative Ketones, UA Negative Spec Grav, UA 1.020 Blood, UA Negative Negative, None Detected pH, UA 7.0 Protein, UA 1+ 70+ Comment:100 mg/dL Urobilinogen, UA >=8.0 Leukocytes, UA Negative Negative, Rare, Trace Nitrite, UA Negative Negative, None Detected Appearance, UA yellow QC Media Lot # [id number] Lot# Expiration Date Urine 03/26/2025 5:27 PM EDT Jess Manrique MD POINT OF CARE TEST ENTER/ED IT ORDERABLES Final Result * (ABNORMAL) Referral to Urology (03/26/2025 5:27 PM EDT) 03/26/2025 5:27 PM EDT [facility] OUTPATIENT REFERRAL ORDERABLE S Final Result * (ABNORMAL) CBC auto differential (03/01/2025 2:50 PM EDT) White Blood Count 4.8 4.8 - 10.8 X10*3/uL [facility] Red Blood Count 4.14(L) 4.60 - 5.80 X10*6/uL [facility] Hemoglobin 12.7(L) 14.0 - 18.0 g/dl [facility] Hematocrit 40.2(L) 42.0 - 52.0 % [facility] Mean Corpuscular Volume 97.1 80.0 - 98.0 fL [facility] Mean Corpuscular Hemoglobin 30.7 27.0 - 33.0 pg [facility] Mean Corpuscular HGB Conc 31.6 31.0 - 36.0 g/dl [facility] Red Cell Distribution Width 11.9 11.0 - 16.0 % [facility] Platelet Count 238 160 - 400 X10*3/uL [facility] Mean Platelet Volume 9.9 9.4 - 12.4 fL [facility] Neutrophils Percent Auto 56.2 45 - 73 % [facility] Imm Gran Pct Auto 0.0 0.0 - 0.4 % [facility] Lymphocytes Percent Auto 33.1 20 - 40 % [facility] Monocytes Percent Auto 6.8 2 - 11 % [facility] Eosinophils Percent Auto 3.1 0 - 4 % [facility] Basophils Percent Auto 0.8 0 - 2 % [facility] NRBC Pct Auto 0.0 0.0 - 0.2 /100WBC [facility] Neutrophils Absolute Auto 2.7 2.0 - 8.3 x10*3/uL [facility] Imm Gran Abs Auto 0.00 0.00 - 0.03 X10*3/uL [facility] Lymphocytes Absolute Auto 1.6 1.2 - 4.9 X10*3/uL [facility] Monocytes Absolute Auto 0.3 0.1 - 1.2 X10*3/uL [facility] Eosinophils Absolute Auto 0.2 0.0 - 0.4 X10*3/uL [facility] Basophils Absolute Auto 0.0 0.0 - 0.2 X10*3/uL [facility] NRBC Abs Auto 0.000 0.0 - 0.012 X10*3/uL [facility] Blood Venous blood specimen / Unknown 03/01/2025 2:50 PM EDT 03/01/2025 3:55 PM EDT [facility] LAB BLOOD ORDERABLES Chika fyr - Final [facility] [address] [place] [address] [phone] * Lipid Panel, Standard (03/01/2025 2:50 PM EDT) Triglycerides 57 <150 mg/dL [facility] Comment:Desirable Triglyceri de: less than 150 mg/dLBorderline High Triglyceride 150-199 mg/dLHigh Triglyceride: 200-499 mg/dLVery High Triglyceride: greater than or equal to 5OO mg/dL Cholesterol 177 <200 mg/dL [facility] Comment:Desirable Cholestero l: less than 200 mg/dLBorderline High Cholesterol: 200-239 mg/dLHigh Cholesterol: greater than 239 mg/dL LDL Cholesterol Calculated 94 <100 mg/dL [facility] Comment:Desirable LDL: less than 100 mg/dLNear Optimal/Above Optimal LDL: 110- 129 mg/dLBorderline High LDL: 130-159 mg/dLHigh LDL: 160-189 mg/dLVery High LDL: greater than or equal to 190 mg/dL HDL Cholesterol 72 >40 mg/dL [facility] Comment:Desirable HDL: great er than 40 mg/dL Note: This HDL assay may give artificially low results in patients with liver disease. Blood Venous blood specimen / Unknown 03/01/2025 2:50 PM EDT 03/01/2025 3:55 PM EDT [facility] LAB BLOOD ORDERABLES Edited R esult - Final [facility] [address] [place] [phone] * (ABNORMAL) Comprehensive Metabolic Panel (03/01/2025 2:50 PM EDT) Sodium 140 135 - 145 mmol/L [facility] Potassium 4.4 3.3 - 5.1 mmol/L [facility] Chloride 105 96 - 108 mmol/L [facility] Carbon Dioxide 29 22 - 29 mmol/L [facility] Anion Gap 10(L) 12 - 20 [facility] Urea Nitrogen (BUN) 15 9 - 16 mg/dL [facility] Creatinine, Serum 1.39 0.5 - 1.4 mg/dL [facility] Estimated Glomerular Filt Rate 51 [facility] Comment:Chronic Kidney Disea se: Estimated GFR < 60 mL/min/[id number] Kidney Disease: Estimated GFR < 15 mL/min/1.73m2 Glucose 120(H) 60 - 115 mg/dL [facility] Calcium 9.2 8.4 - 10.2 mg/dL [facility] Bilirubin, Total 0.7 0.0 - 1.0 mg/dL [facility] Aspartate Amino Transferase 28 5 - 37 U/L [facility] Alanine Aminotransferase 14 0 - 40 U/L [facility] Total Protein 6.7 6.5 - 8.0 g/dL [facility] Albumin Level 3.7 3.5 - 5.0 g/dL [facility] Alkaline Phosphatase 110 39 - 117 U/L [facility] Blood Venous blood specimen / Unknown 03/01/2025 2:50 PM EDT 03/01/2025 3:55 PM EDT Result [facility] LAB BLOOD ORDERABLES Edited R esult - Final [facility] [address] [place] [phone] [phone] * (ABNORMAL) POCT Glucose (02/28/2025 10:34 AM EDT) Only the most recent of2 resultswithin the time period is included. Glucose Blood, POC 195(A) 60 - 200 mg/dL QC Media Lot # [id number] Lot# Expiration Date 101,425 Blood Capillary blood specimen / Unknown 02/28/2025 10:34 AM EDT Result [facility] POINT OF CARE TEST ENTER/EDIT ORDERABLES Edited Result - Final * POCT HGB A1C (01/19/2025 4:25 PM EDT) Hemoglobin A1C 6.0 4.0 - 6.0 % QC Media Lot # [id number] Lot# Expiration Date 110,426 Blood 01/19/2025 4:25 PM EDT Kadie Salazar NP POINT OF CARE TEST ENTER/EDIT OR DERABLES Edited Result - Final * CT Chest w/o Contrast (01/01/2025 12:44 PM EST) Anatomical Region Laterality Modality Body, Chest Computed Tomogra phy 01/01/2025 12:4 4 PM EST Narrative 01/01/2025 12:45 PM EST ? [facility] ?[address] ?[place] [address] ? CT Scan Report ? Signed ? Patient: Salmeron Victor Hugo,Armando ?MR#: [id number] ?? [id number] ? : 1955 ?Acct:[id number] ? Age/Sex: 69 / M ?ADM Date: 12/29/24 ? Loc: HO.CT ? Attending Dr: Grabiel Roldan MD ? Ordering Physician: Grabiel Roldan MD ?? Date of Service: 12/29/24 ?? Procedure(s): CT chest wo IV con ?? Accession Number(s): [id number] ? cc: Grabiel Roldan MD; Krysta Lockett [employer] ? Report Number: ?? [id number]: Total DLP = ??182.00 mGy-cm ? CLINICAL HISTORY: R91.8 - Other nonspecific abnormal finding of lung field ? CT chest without contrast ? Comparison: CT/NC/SR - CT CHEST WO IV CON - [...] DD/ 1244 ? TD/TT: 01/01/25 1244 ? Shop Hand: ? Procedure Note Peggy Larose - 01/01/2025 [place] [address] [place] [address] CT Scan Report Signed Patient: Armando BaMR#: [id number] : 6Acct:[id number] Age/Sex: 69 / MADM Date: 12/29/24 Loc: HO.CT Attending Dr: Grabiel Roldan MD Ordering Physician: Grabiel Roldan MD Date of Service: 12/29/24 Procedure(s): CT chest wo IV con Accession Number(s): [id number] cc: Grabiel Roldan MD; [facility] Report Number: [id number]: Total DLP = 182.00 mGy-cm CLINICAL HISTORY: R91.8 - Other nonspecific abnormal finding of lung field CT chest without contrast Comparison: CT/NC/SR - CT CHEST WO IV CON - [...] 01/01/25 1245 DD/ 1244 TD/TT: 01/01/25 1244 Shop Hand: [facility] External Provider IMG CT PROCEDURES Final Result * (ABNORMAL) Protein Creatinine Ratio, Urine (03/13/2024 9:57 AM EDT) Creatinine, Urine 97.69 mg/dL [facility] Protein, Total, Random Urine 14(H) <12 mg/dL [facility] Protein/Creatin ine Ratio, Ur 0.14 <0.2 [facility] Comment:The spot urine prote in:creatinine ratio may increase to 0.3during normal . 03/13/2024 9:57 AM EDT 03/13/2024 11:31 AM EDT Generic External Data Provider LAB URINE ORDERAB LES Final Result Performing Organization Address [facility]/ZIP Co de Phone Number [facility] [address] [place] [address] [phone] * Hepatitis C Antibody with Reflex to HCV, RNA, Quantitative, Real-Time PCR (12/15/2022 9:44 AM EST) Hepatitis C Antibody NON-REACT SIDDHARTH NON-REACT SIDDHARTH [employer] Index <0.02 <1.00 [employer] Comment: HCV antibody was non-reactive. There is no laboratory evidence of HCV infection. In most cases, no further action is required. However, if recent HCV exposure is suspected, a test for HCV RNA (test code 01973) is suggested. For additional information please refer to http://education.Appfrica/faq/OIG62g1 (This link is being provided for informational/ educational purposes only.) Blood Venous blood specimen / Unknown 12/15/2022 9:44 AM EST 12/15/2022 9:45 AM EST Narrative [facility] - 12/16/2022 2:26 PM EST FASTING:UNKNOWN FASTING: UNKNOWN [facility] [employer] LAB BLOOD ORDERABLES Final Re sult Performing Organization Address City/[facility]/ZIP Co de Phone Number [facility] [address] [facility], [facility], [place] [address] [employer] [place] [employer] [address] [facility], ([address]) [place] [address] * Hm Colonoscopy (07/18/2019 7:44 AM EDT) Historical Provider HEALTH MAINTENANCE Final Result from Last 3 Months or Most Recently Relevant to Health [place] [address] [place] [address] [facility] LONG-TERM OPTIONS (O D-SNP) JUAN ASHBY [id number] [place] [address] Care Teams Lotteries Agent Relationship Specialty Start Date End Date Krysta Lockett FNP [address] [place] [id number] PCP - General Family Medicine 10/27/22
--- NOTE | 2025-03-30 14:03 | MHC.OFFVISWM ---
VS Expanded 03/30/25 14:13 BP 186/84 H Blood Pressure Location Rt brachial Blood Pressure Position Sitting Pulse 73 Pulse Source Pulse Oximeter Temp 97.8 F Temperature Source Temporal Artery Scan Pulse Oximetry 99 Oxygen Delivery Method Room Air Height 5 ft 8 in Weight 196 lb 3.2 oz BMI 29.8 Body Fat % 23.7 Body Fat Mass 46.6 Fat Free Mass 149.4 Visceral Fat Rating 15.0 Body Water % 53.8 Body Water Mass 105.4 Muscle Mass/Score 142.0 Basal Metabolic Rate/Score 1,961 Intake Visit Reasons: (OV) PO LSG 06/25/21 Core Composer Feeder Required: Yes Core Composer Feeder Services: Core Composer Feeder Present Core Composer Feeder Name: hospital cmi Allergies aspirin [Aspirin] Allergy (Mild, Verified 03/30/25 14:10) SWELLING Penicillins Allergy (Mild, Verified 03/30/25 14:10) SWELLING Medication List - Last Reconciled 03/30/25 by JUAN Shirley acetaminophen (Tylenol Extra Strength) 1,000 mg (2 x 500 mg) PO Q6H PRN albuterol sulfate 90 mcg/actuation 2 inhalations inhalation Q6H PRN 30 days apixaban (Eliquis) 5 mg PO BID ascorbic acid (vitamin C) 250 mg PO QAM atorvastatin 20 mg PO BEDTIME [celebrate MVI PO DAILY] cholecalciferol (vitamin D3) 50 mcg PO DAILY [id number]-qvkhfordl-rtrmonnx 100-62.5-25 mcg (Trelegy Ellipta) 1 inh inhalation DAILY 30 days folic acid 1 mg PO QAM ipratropium-albuterol 0.5 mg-3 mg(2.5 mg base)/3 mL 3 mL inhalation Q6H PRN ipratropium-albuterol 0.5 mg-3 mg(2.5 mg base)/3 mL 3 mL inhalation BID 30 days midodrine 2.5 mg PO nebulizers As directed omeprazole 20 mg PO DAILY pen needle, diabetic As directed simethicone (Gas Relief (simethicone)) 80 mg PO BID-QID PRN tiotropium bromide 1 cap inhalation DAILY trazodone 100 mg PO BEDTIME vitamin A palmitate 10,000 units PO DAILY zinc gluconate 30 mg PO DAILY HPI Comments Details: 70-year-old male who returns to the office today status post sleeve gastrectomy performed 06/25/[address] Park. His approximately 3 years 9 months postoperatively. He was last seen in the office 07/11/2024. Weight today is 196.2 lb with a BMI of 29.8. He was seen in the emergency department earlier on this month with complaints of abdominal pain around the area of his previous umbilical hernia surgery. There was no leukocytosis or abnormal liver function tests although CT scan did show layering small cholelithiasis. Upon further questioning, he states that he has had right upper quadrant abdominal discomfort, worse after meals, intermittently over the last 2-3 weeks. He says that sometimes it would radiate around to his right back, denied nausea or vomiting, fevers or chills at these times. He has not been following any particular meal plan, he does go to a program for adults 6 days a week and would have things such as oatmeal or eggs, sandwiches, cookies, chips and then rice and beans and me at night. Meal plan: Nothing formal 16 oz water Exercise treadmill, Luz [employer] class daily at the day program [facility] Medical History Chronic restrictive lung disease Pulmonary nodules COVID-19 vaccine series completed Arthritis Asthma Vitamin D deficiency HLD (hyperlipidemia) T2DM (type 2 diabetes mellitus) Anxiety Depression Venous insufficiency Hypertension COPD (chronic obstructive pulmonary disease) Surgical History History of repair of hiatal hernia Status post laparoscopic sleeve gastrectomy History of esophagogastroduodenoscopy (EGD) History of umbilical hernia repair H/O colonoscopy with polypectomy Family History Father CVD (cardiovascular disease) Heart disease Mother Heart disease CVD (cardiovascular disease) Brother Cancer Brother Cancer Brother Heart attack Sister CVD (cardiovascular disease) Diabetes mellitus Hypertension Arthritis Social History Are you a primary lawn care technician to a significant other at home: No Do you presently have visiting nurse or other home services: Yes ([employer] SPECIALIST-daughter) Alcohol intake: never Comment: no facial grimacing, medicated in pacu numerous times, pain scale explained Patient Tobacco Use Status: Former Tobacco user Tobacco use type: Cigarette Advance Directives Date on File: 06/27/21 service: No Current occupational status: unemployed Physical Exam Const General: healthy appearing and no acute distress Resp Effort & Inspection: normal respiratory effort Auscultation: clear to auscultation bilaterally Cardio Rate: regular rate Rhythm: regular rhythm GI Palpation (GI): Soft to palpation, Tenderness to palpation present (GI) in the RUQ and no guarding Auscultation: normal bowel sounds Extrem General: Yes normal to inspection Assessment & Plan Assessment & Plan (1) Status post laparoscopic sleeve gastrectomy: Code(s): Z98.84 - Bariatric surgery status Category: Surgical Plan: Discussed the importance of following a meal plan, patient given the following meal plan: Utilizing premier protein ready to drink shake 5-7 am 4 oz of shake mixed with 4 oz of unsweetened almond milk 9-11 am 6 oz of shake mixed with 2 oz of almond milk noon meal with 6 forks of protein and 4 forks of vegetables 1-2 pm half cup fresh berries or apple, orange, pear, kiwi 4 pm meal with 6 forks of protein and 6 forks of vegetables Encouraged to utilize the stationary bike and the treadmill at the day program that he attends 6 days a week, at least 30 minutes per exercise machine, with a goal of burning approximately 350 calories to 400 calories per day. We will have him return to the office in a proximally 6 weeks (2) Abdominal pain: Code(s): R10.9 - Unspecified abdominal pain Category: Medical Qualifiers: Abdominal location: right upper quadrant Qualified Code(s): R10.11 - Right upper quadrant pain Plan: Patient with right upper quadrant abdominal discomfort in the setting of known cholelithiasis, suspicion for biliary colic. Recently was seen in the emergency room for similar complaints and no evidence of leukocytosis, elevated liver function tests or bilirubin and therefore acute cholecystitis unlikely however CT scan showed layering stones, we will obtain right upper quadrant abdominal ultrasound for further evaluation and possible recommendation for elective laparoscopic cholecystectomy. He is going to discuss this with his family Orders: Orders US abdomen limited Today K80.20 - Calculus of gallbladder without cholecystitis without obstruction, R10.11 - Right upper quadrant pain
[2025-03-30 14:13] VITALS: BP 186/84; PULSE 73; TEMP 36.6; O2SAT 99; BMI 29.8
== END 2025-03-30 16:07 | disposition home or self-care (01) ==
LOC: HO.HBS 13:56
PROVIDERS: Visit Provider Physician Assistant Surgical
DX: R10.11 Right upper quadrant pain (principal); E66.3 Overweight; Z68.29 Body mass index [BMI] 29.0-29.9, adult; Z98.84 Bariatric surgery status
CPT/HCPCS: 99214; G2211

== ENCOUNTER → 2025-03-30 13:55 | Outpatient (BNVA) | payer OTHER, SELFPAY | PROVIDERS: Visit Provider Physician Assistant Surgical | DX: Z98.84 Bariatric surgery status (principal) | CPT/HCPCS: 99212 ==

== ENCOUNTER 2025-04-12 12:11 | Emergency (ER) | payer OTHER, SELFPAY ==
--- NOTE | ~2025-04-12 | US_ITS ---
EXAMINATION: US ABDOMEN LIMITED CLINICAL INFORMATION: Right flank pain. COMPARISON: 03/26/2025. TECHNIQUE: Real-time imaging of the right upper quadrant abdominal viscera. FINDINGS: PANCREAS: Largely obscured by gas. LIVER: The liver is normal in size. The liver contour is normal. There is diffuse increased liver parenchymal echogenicity, consistent with hepatic steatosis. No focal hepatic lesion. There is no intrahepatic biliary duct dilatation seen. GALLBLADDER: Gallbladder demonstrates intraluminal shadowing gravel size gallstones. No wall thickening or pericholecystic fluid collection. Negative sonographic Nicole's sign. COMMON BILE DUCT: Normal in caliber measuring 0.3 cm in diameter. RIGHT KIDNEY: No hydronephrosis. No renal calculi or focal parenchymal lesions. The kidney measures 10.2 cm in maximum dimension. FREE FLUID: None. US/US abdomen limited IMPRESSION: 1. Intraluminal shadowing gravel size gallstones. No definite wall thickening or pericholecystic fluid collection. Negative sonographic Nicole's sign. 2. Mildly echogenic liver suggesting steatosis. No focal lesion. 3. Normal bile ducts without biliary dilatation. 3. Normal right kidney without hydronephrosis. Electronically signed by: Jasiel Echevarria MD 04/12/2025 03:57 PM EDT
[2025-04-12 12:24] VITALS: BP 148/80; BP 149/70; PULSE 60; PULSE 64; RESP 16; TEMP 36.9; O2SAT 97; O2SAT 99; BMI 29.2
--- NOTE | 2025-04-12 12:51 | ED.ABDPAIN ---
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 The pain is located in the middle of his back and intermittently radiates to the abdomen. It is worse with movement. He currently has minimal pain. He denies any associated nausea, vomiting, diarrhea. No fever or chills. He denies any associated hematuria, dysuria, urgency, frequency. His daughter reports he was seen by the surgeon who recommended gallbladder removal and he is contemplating this. He has made dietary modifications with improvement in his gallbladder pain MD elicited complaint: flank pain Pertinent past history: other (gallstones) Onset (ago): day(s) (1) Pain Consistency: intermittent Location: R flank Severity: moderate Quality: stabbing Radiation: RLQ Migration to: no migration Exacerbating factors: movement Relieving factors: nothing Context: history of similar episodes Associated symptoms: nausea Related Data Home Medications ?Medication ?Instructions ?Recorded ?Confirmed atorvastatin 20 mg tablet 20 mg PO BEDTIME 11/04/20 03/30/25 ascorbic acid (vitamin C) 250 mg 250 mg PO QAM 04/23/21 03/30/25 tablet pen needle, diabetic 32 gauge x #50 ea 04/23/21 03/30/25 tiotropium bromide 18 mcg capsule 1 cap inhalation DAILY 04/23/21 03/30/25 with inhalation device celebrate MVI PO DAILY 04/20/22 03/30/25 omeprazole 20 mg capsule,delayed 20 mg PO DAILY 07/28/22 03/30/25 release nebulizers 03/09/23 03/30/25 apixaban 5 mg tablet (Eliquis) 5 mg PO BID 05/02/24 03/30/25 midodrine 2.5 mg tablet 2.5 mg PO 05/02/24 03/30/25 trazodone 100 mg tablet 100 mg PO BEDTIME 05/02/24 03/30/25 folic acid 1 mg tablet 1 mg PO QAM 05/19/24 03/30/25 Previous Rx's ?Medication ?Instructions ?Recorded ipratropium 0.5 mg-albuterol 3 mg 3 ml inhalation Q6H PRN shortness 09/12/20 (2.5 mg base)/3 mL nebulization of breath or wheezing #15 mL soln acetaminophen 500 mg tablet 1,000 mg (2 x 500 mg) PO Q6H PRN 06/16/21 (Tylenol Extra Strength) pain #30 tabs albuterol sulfate 90 mcg/actuation 2 inh inhalation Q6H PRN shortness 03/09/23 aerosol inhaler of breath or wheezing 30 days #18 grams simethicone 80 mg chewable tablet 80 mg PO BID-QID PRN abdominal 01/13/24 (Gas Relief (simethicone)) distention #90 tabs cholecalciferol (vitamin D3) 50 50 mcg PO DAILY #90 caps 08/07/24 mcg (2,000 unit) capsule fluticasone fur. 100 mcg-umeclid 1 inh inhalation DAILY 30 days #60 08/07/24 62.5 mcg-vilant 25 mcg ea inhalat.powder (Trelegy Ellipta) vitamin A palmitate 3,000 mcg 10,000 unit PO DAILY #90 caps 10/23/24 (10,000 unit) capsule zinc gluconate 30 mg tablet 30 mg PO DAILY #90 tabs 10/23/24 ipratropium 0.5 mg-albuterol 3 mg 3 ml inhalation BID 30 days #180 mL 03/07/25 (2.5 mg base)/3 mL nebulization soln Allergies Allergy/AdvReac Type Severity Reaction Status Date / Time aspirin [Aspirin] Allergy Mild SWELLING Verified 03/30/25 14:10 Penicillins Allergy Mild SWELLING Verified 03/30/25 14:10 NSAIDS (Non-Steroidal Allergy Unknown Verified 04/12/25 12:31 Anti-Inflamma Review of Systems Review of Systems Yes all other systems are reviewed and are negative PMFSH Past Medical History Medical History Chronic restrictive lung disease Pulmonary nodules COVID-19 vaccine series completed Arthritis Asthma Vitamin D deficiency HLD (hyperlipidemia) T2DM (type 2 diabetes mellitus) Anxiety Depression Venous insufficiency Hypertension COPD (chronic obstructive pulmonary disease) Surgical History History of repair of hiatal hernia Status post laparoscopic sleeve gastrectomy History of esophagogastroduodenoscopy (EGD) History of umbilical hernia repair H/O colonoscopy with polypectomy Family History Family History Father CVD (cardiovascular disease) Heart disease Mother Heart disease CVD (cardiovascular disease) Brother Cancer Brother Cancer Brother Heart attack Sister CVD (cardiovascular disease) Diabetes mellitus Hypertension Arthritis Social History Social History Are you a primary post acute care nurse practitioner to a significant other at home: No Do you presently have visiting nurse or other home services: Yes ([employer] INSPECTOR-daughter) Alcohol intake: never Comment: no facial grimacing, medicated in pacu numerous times, pain scale explained Patient Tobacco Use Status: Former Tobacco user Tobacco use type: Cigarette Smoked in Last 30 Days: No Use of substances other than those prescribed or required for medical reasons: No Advance Directives: No Advance Directives Information Provided: Yes Advance Directives Date on File: 06/27/21 service: No Current occupational status: unemployed Physical Exam ED Vital Signs: Vital Signs - 24 hr 04/12/25 12:24 04/12/25 14:23 Temperature 98.4 F 97.0 F Pulse Rate 60 63 Respiratory Rate 16 16 Blood Pressure 149/70 H 136/73 Pulse Oximetry 99 100 Oxygen Delivery Method Room Air Room Air BMI result Body Mass Index 29.2 Appearance: Alert. Oriented X3. No acute distress. Head: normocephalic, atraumatic. Eyes: Pupils equal, round and reactive to light. ENT: Pharynx normal. No tonsillar swelling or exudate. Neck: Normal inspection. Neck supple. CVS: Normal heart rate and rhythm. Pulses normal. Respiratory: No respiratory distress. Breath sounds normal. Abdomen: Soft and nontender. +BS x4 Back: +CVA tenderness on the right. no midline tenderness. Skin: Skin warm and dry. Normal skin color. Normal skin turgor. No rashes. Extremities: No lower extremity edema. No joint swelling. Neuro/psych: Oriented X 3. Grossly normal, nonfocal Normal speech and cognition. Medical Decision Making Medical Decision Making [facility] Narrative: 70-year-old male with history of gallstones, CKD, memory impairment who presents to the ER from adult daycare for evaluation of right-sided back pain that radiates to the abdomen intermittently that started yesterday. Minimal pain on arrival. Given Tylenol. Vital signs are stable. Exam with some mild right sided CVA tenderness. Lab workup revealing for negative urinalysis, no blood. CBC without leukocytosis, he has some baseline anemia which is stable and unchanged. He has mild elevation of his BUN and creatinine with BUN of 27 and creatinine 1.46. This appears to be close to his baseline and has had similar numbers in the past. He has normal LFTs and lipase. Renal ultrasound and right upper quadrant ultrasound were performed which does not show any evidence of hydronephrosis or kidney stones. He has gallstones present without any evidence of acute cholecystitis. He may be experiencing biliary colic versus MSK right-sided flank pain. He is better with Tylenol. At this time is stable for discharge home with outpatient follow-up with General surgery in his PCP. Results and plan discussed with his daughter who is in agreement. Stable for discharge home Differential Diagnosis Differential Diagnoses: The differential diagnosis associated with the presentation includes Kidney stone, pyelonephritis, UTI, appendicitis, cholecystitis, biliary colic, renal colic Admission/Observation Consideration of admission/observation: Escalation of care including admission/observation considered Lab Data [facility] Lab Attestation statement: I reviewed the patient's lab results. Mild anemia stable, CKD stable 04/12/25 13:39 04/12/25 13:39 Labs: Lab Results 04/12/25 04/12/25 Range/Units 13:33 13:39 WBC 5.5 (4.8-10.8) X10*3/uL RBC 3.86 L (4.60-5.80) X10*6/uL Hgb 12.3 L (14.0-18.0) g/dl Hct 36.3 L (42.0-52.0) % MCV 94.0 (80.0-98.0) fL MCH 31.9 (27.0-33.0) pg MCHC 33.9 (31.0-36.0) g/dl RDW 11.9 (11.0-16.0) % Plt Count 196 (160-400) X10*3/uL MPV 9.8 (9.4-12.4) fL Immature Gran % (Auto) 0.4 (0.0-0.4) % Neut % (Auto) 57.9 (45-73) % Lymph % (Auto) 30.8 (20-40) % [place] % (Auto) 7.3 (2-11) % Eos % (Auto) 2.9 (0-4) % Baso % (Auto) 0.7 (0-2) % Lymph # (Auto) 1.7 (1.2-4.9) X10*3/uL [place] # (Auto) 0.4 (0.1-1.2) X10*3/uL Eos # (Auto) 0.2 (0.0-0.4) X10*3/uL Baso # (Auto) 0.0 (0.0-0.2) X10*3/uL Abs Immat Gran (auto) 0.02 (0.00-0.03) X10*3/uL Absolute Neuts (auto) 3.2 (2.0-8.3) x10*3/uL Absolute Nucleated RBC 0.000 (0.0-0.012) X10*3/uL Nucleated RBC % (auto) 0.0 (0.0-0.2) /100WBC Sodium 142 (135-145) mmol/L Potassium 4.1 (3.3-5.1) mmol/L Chloride 105 (96-108) mmol/L Carbon Dioxide 30 H (22-29) mmol/L Anion Gap 11 L (12-20) BUN 27 H (9-16) mg/dL Creatinine 1.46 H (0.5-1.4) mg/dL Estim Creat Clear Calc 44.8 Estimated GFR 48 Random Glucose 88 (60-115) mg/dL Calcium 9.5 (8.4-10.2) mg/dL Total Bilirubin 0.8 (0.0-1.0) mg/dL AST 106 H (5-37) U/L ALT 29 (0-40) U/L Alkaline Phosphatase 99 (39-117) U/L Total Protein 6.5 (6.5-8.0) g/dL Albumin 3.7 (3.5-5.0) g/dL Lipase 15 (8-78) U/L Urine Color Yellow Urine Appearance Clear Urine pH 5.5 (5.0-9.0) Ur Specific [place] 1.015 (1.005-1.025) Urine Protein Negative (Neg-Trace) mg/dL Urine Glucose (UA) Negative (Negative) mg/dL Urine Ketones Trace (Negative) mg/dL Urine Blood Negative (Negative) Urine Nitrite Negative (Negative) Ur Leukocyte Esterase Negative (Negative) Independent Interpretation I performed an independent interpretation of an: Ultrasound Interpretation: gallstones present Radiology Impression Discussion of test interpretation with radiology: I have reviewed the radiologist's reading. Radiologist Impression: US/US abdomen limited IMPRESSION: 1. Intraluminal shadowing gravel size gallstones. No definite wall thickening or pericholecystic fluid collection. Negative sonographic Nicole's sign. 2. Mildly echogenic liver suggesting steatosis. No focal lesion. 3. Normal bile ducts without biliary dilatation. 3. Normal right kidney without hydronephrosis. Independent Historian Clinical information obtained from an independent historian. History obtained from or confirmed by: Other (daughter at the bedside) External Record Review External record reviewed: Outpatient record and Prior outpatient radiology Prescription Management I considered prescription management with: Pain Medication and Antibiotic Chronic Conditions Patient?s care impacted by: Diabetes and Hypertension Medications Administered Discontinued Medications Generic Name Dose Route Start Last Admin Trade Name Freq PRN Reason Stop Dose Admin Acetaminophen 975 mg 04/12/25 14:05 04/12/25 14:14 Acetaminophen 325 Mg Tablet PO 04/12/25 14:06 975 mg ONCE ONE Administration Critical Care Time Critical Care Time Critical Care Time: No Discharge Plan Discharge Clinical Impression: Back pain Qualifiers: Back pain location: thoracic back pain Chronicity: acute Back pain laterality: right Qualified Code(s): M54.6 - Pain in thoracic spine Patient Disposition: Home, Self-Care Instructions: Back Pain (ED) Additional Instructions: Your workup today was unremarkable and reassuring. Your urine test did not show any blood or infection. Your pain may be due to muscular pain, or it may be due to radiated pain from your gallbladder spasming. Recommend Tylenol as needed for pain. Recommend outpatient follow-up with the general surgeon's office. If you develop new or worsening symptoms call 911 or come back to the ER for further evaluation. US/US abdomen limited IMPRESSION: 1. Intraluminal shadowing gravel size gallstones. No definite wall thickening or pericholecystic fluid collection. Negative sonographic Nicole's sign. 2. Mildly echogenic liver suggesting steatosis. No focal lesion. 3. Normal bile ducts without biliary dilatation. 3. Normal right kidney without hydronephrosis. Prescriptions: No Action Trelegy Ellipta 100-62.5-25 mcg blister with device 1 inh inhalation DAILY 30 Days Qty: 60 11RF cholecalciferol (vitamin D3) 50 mcg (2,000 unit) capsule 50 mcg PO DAILY Qty: 90 3RF vitamin A palmitate 3,000 mcg (10,000 unit) capsule 10,000 unit PO DAILY Qty: 90 3RF zinc gluconate 30 mg tablet 30 mg PO DAILY Qty: 90 3RF ipratropium-albuterol 0.5 mg-3 mg(2.5 mg base)/3 mL solution for nebulization 3 ml inhalation BID 30 Days Qty: 180 11RF ipratropium-albuterol 0.5 mg-3 mg(2.5 mg base)/3 mL solution for nebulization 3 ml inhalation Q6H PRN (Reason: shortness of breath or wheezing) Qty: 15 0RF atorvastatin 20 mg tablet 20 mg PO BEDTIME acetaminophen [Tylenol Extra Strength] 500 mg tablet 1,000 mg PO Q6H PRN (Reason: pain) Qty: 30 1RF tiotropium bromide 18 mcg capsule, w/inhalation device 1 cap inhalation DAILY ascorbic acid (vitamin C) 250 mg tablet 250 mg PO QAM (DME) pen needle, diabetic 32 gauge x 5/32 needle See Rx Instructions .ROUTE .MEDSUPPLY Qty: 50 Rx Instructions: As directed celebrate MVI PO DAILY (DME) nebulizers Misc See Rx Instructions .Route Rx Instructions: As directed albuterol sulfate 90 mcg/actuation HFA aerosol inhaler 2 inh inhalation Q6H PRN (Reason: shortness of breath or wheezing) 30 Days Qty: 18 12RF omeprazole 20 mg capsule,delayed release(DR/EC) 20 mg PO DAILY simethicone [Gas Relief (simethicone)] 80 mg tablet,chewable 80 mg PO BID-QID PRN (Reason: abdominal distention) Qty: 90 3RF folic acid 1 mg tablet 1 mg PO QAM Eliquis 5 mg tablet 5 mg PO BID trazodone 100 mg tablet 100 mg PO BEDTIME midodrine 2.5 mg tablet 2.5 mg PO Referrals: [facility] [place] [facility] [Provider Group] Center,[facility] [Primary Care Provider] - Print Language: Occitan
--- NOTE | 2025-04-12 13:03 | ECG_ITS ---
Test Reason : ABDOMINAL PAIN Blood Pressure : */* mmHG Vent. Rate : 63 BPM Atrial Rate : 63 BPM P-R Int : 172 ms QRS Dur : 88 ms QT Int : 416 ms P-R-T Axes : 66 63 50 degrees QTcB Int : 425 ms Normal sinus rhythm Normal ECG When compared with ECG of 26-Mar-2025 19:15, No significant changes seen Referred By: Daniel Rdz Electronically Signed By: OSFIA SIMMONS
[2025-04-12 13:46] LABS: Basophils Percent Auto 0.7 % (0-2); Eosinophils Absolute Auto 0.2 X10*3/uL (0.0-0.4); Eosinophils Percent Auto 2.9 % (0-4); Hematocrit 36.3 % (42.0-52.0); Hemoglobin 12.3 g/dl (14.0-18.0); Imm Gran Abs Auto 0.02 X10*3/uL (0.00-0.03); Imm Gran Pct Auto 0.4 % (0.0-0.4); Lymphocytes Absolute Auto 1.7 X10*3/uL (1.2-4.9); Lymphocytes Percent Auto 30.8 % (20-40); MANUAL DIFF FLAG NO; Mean Corpuscular HGB Conc 33.9 g/dl (31.0-36.0); Mean Corpuscular Hemoglobin 31.9 pg (27.0-33.0); Mean Platelet Volume 9.8 fL (9.4-12.4); Monocytes Absolute Auto 0.4 X10*3/uL (0.1-1.2); Monocytes Percent Auto 7.3 % (2-11); Neutrophils Absolute Auto 3.2 x10*3/uL (2.0-8.3); Neutrophils Percent Auto 57.9 % (45-73); Platelet Count 196 X10*3/uL (160-400); Red Blood Count 3.86 X10*6/uL (4.60-5.80); Red Cell Distribution Width 11.9 % (11.0-16.0); White Blood Count 5.5 X10*3/uL (4.8-10.8)
[2025-04-12 13:48] LABS: Appearance Urine Clear; Color Urine Yellow; Glucose Urine UA Negative (Negative); Leukocyte Esterase Urine Negative (Negative); Nitrite Urine Negative (Negative); PH 5.5 (5.0-9.0); Specific Gravity - Urine 1.015 (1.005-1.025); Urine Blood Negative (Negative); Urine Ketones Trace mg/dL (Negative); Urine Protein Negative (Neg-Trace)
[2025-04-12 14:03] LABS: Alanine Aminotransferase 29 U/L (0-40); Albumin Level 3.7 g/dL (3.5-5.0); Alkaline Phosphatase 99 U/L (39-117); Anion Gap 11 (12-20); Aspartate Amino Transferase 106 U/L (5-37); Bilirubin Total 0.8 mg/dL (0.0-1.0); Blood Urea Nitrogen 27 mg/dL (9-16); Calcium 9.5 mg/dL (8.4-10.2); Carbon Dioxide 30 mmol/L (22-29); Chloride 105 mmol/L (96-108); Creatinine Clr Calc Pharmacy 44.8; Estimated Glomerular Filt Rate 48; Glucose Random 88 mg/dL (60-115); Lipase 15 U/L (8-78); Potassium 4.1 mmol/L (3.3-5.1); Sodium 142 mmol/L (135-145); Total Protein 6.5 g/dL (6.5-8.0)
[2025-04-12] MEDS: Acetaminophen 325 MG TABLET 975 MG PO (14:14)
[2025-04-12 14:23] VITALS: BP 136/73; PULSE 63; RESP 16; TEMP 36.1; O2SAT 100
--- OUTSIDE RECORDS SUMMARY | 2025-04-12 15:22 | XMS_ITS | Clinical Summary ---
Author Organization [employer] Address [address] [place] [address] [address] [place] [address] Care Team Providers Care Seamer Elastic Band Name Role Phone Krysta Lockett BUSINESS CENTER REPRESENTATIVE Primary Care Provider [phone] Allergies Active Allergy Reactions Criticality Noted Date [...] s:Chronic obstructive pulmonary disease, unspecified COPD type ([facility]) INHALE 1 PUFF TWICE DAILY. RINSE MOUTH AFTER USING. 60 each 11 01/28/20 24 Active glucose 4 g chewable tabletIndication s:Type 2 diabetes mellitus with hypoglycemia without coma, without long-term current use of insulin ([facility]) Chew 4 tablets (16 g) if needed for low blood sugar. 50 tablet 12 06/28/20 24 025 Active Diclofenac Sodium 1 % gelIndications:O ther chronic pain Apply topically to affected areas twice daily 150 g 06/28/20 24 Active Continuous Glucose Sensor (FreeStyle Iglesia 2 Sensor) miscIndications: Type 2 diabetes mellitus with hypoglycemia without coma, without long-term current use of insulin ([facility]) Apply 1 sensor every 14 days 2 each 2 06/30/20 24 Active Continuous Glucose Tool Lathe Operator (FreeStyle Iglesia 2 [place]) deviceIndication s:Type 2 diabetes mellitus with hypoglycemia without coma, without long-term current use of insulin ([facility]) Scan sensor every 8 hours 1 each 06/30/20 24 Active folic acid (Folvite) 1 MG tabletIndication s:Stage 3a chronic kidney disease ([facility]) TAKE 1 TABLET BY MOUTH EVERY MORNING [...] BEDTIME 60 tablet 3 03/28/20 25 Active Eliquis 5 MG tabletIndication s:Acute [...] no improvement -gave today to pt # [id number] of his vascular office to call and reschedule apt --I called today as well Dr Beckham's office and left my phone number for a call back from vascular -referred to cards to r/o cardiac etiology -tylenol prn x pain in legs -raise legs -continue use of pneumatic compression -alarm signs and symptoms explained Venous insufficiency 12/23/2022 Overview (12/23/2022): ?? Followed by [facility] vascular ?? Negative LE ultrasound 11/2022 Assessment [...] thrombosis) 12/15/2022 Overview (12/23/2022): ?? Followed by [facility] Dr. 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 Started on [...] NSR no ischemic findings -referred today to wheelchair rental clerk x complete eval of echocardiogram x orthopnea [...] organization. Date Type Department Care Team Description 04/12/2025 Orders Only GENERIC EXTERNAL DATA DEPARTMENT Provider, Generic External Data 03/28/2025 Telephone [facility] [address] [place] [address] Krysta Lockett FNP stable lab letter 03/28/[address] [address] Krysta Lockett FNP Acute deep vein thrombosis (DVT) of other vein of lower extremity, unspecified laterality (CMS/HCC) 03/27/2025 Telephone [facility] [address] [place] [phone] Krysta Lockett FNP ER Follow-up 03/26/2025 5:40 PM EDT Office Visit [facility] [address] [place] [phone] Jess Manrique MD Status post bariatric surgery (Primary Dx); Stage 3 chronic kidney disease, unspecified whether stage 3a or 3b CKD (CMS/HCC); Abdominal wall hernia; Primary hypertension 03/26/2025 Telephone [facility] [address] [place] [phone] Manju France, ESTEE WIC triage 03/26/2025 Telephone [facility] [address] [place] [address] Krysta Lockett FNP Nurse Triage 03/07/2025 Refill [facility] [address] [place] [address] Krysta Lockett FNP 03/06/[address] [address] CathrynKrysta FNP Letter for School/Work 02/28/2025 10:15 AM EDT Office Visit [address] [facility] Type 2 diabetes mellitus with hypoglycemia without coma, without long-term current use of insulin (CMS/[facility]) (Primary Dx); Erectile dysfunction, unspecified erectile dysfunction type 02/28/2025 Travel 01/26/2025 Telephone [facility] [address] [place] [address] CathrynKrysta FNP [employer] 01/19/2025 3:30 PM EDT Office Visit [address] [address] Kadie Salazar NP Elevated blood pressure reading (Primary Dx); Type 2 diabetes mellitus without complication, without long-term current use of insulin (CMS/HCC); Dietary counseling; Exercise counseling 01/19/[address] [address] Kadie Salazar NP Type 2 diabetes mellitus with hypoglycemia without coma, without long-term current use of insulin (CMS/HCC) 01/19/2025 Travel 01/17/[address] [facility] Nurse Triage from Last 3 Months Immunizations [...] 04/23/2021, Additional history exists Diabetes: Hemoglobin A1C 07/22/202501/19/ 025, 06/28/2024, 12/08/2023, Additional history exists Depression [...] Procedure Name Priority Date/Time Associated Diagnosis Comments LIPASE Routine 04/12/2025 1:39 PM EDT COMPREHENSIVE METABOLIC PANEL Routine 04/12/2025 1:39 PM EDT CBC WITH AUTO DIFFERENTIAL Routine 04/12/2025 1:39 PM EDT URINALYSIS WITH REFLEX MICROSCOPIC Routine 04/12/2025 1:33 PM EDT POCT URINALYSIS DIPSTICK Routine 03/26/2025 5:27 PM [...] without long-term current use of insulin (CMS/HCC) PROTEIN CREATININE RATIO, URINE Routine 03/13/2024 9:57 AM EDT HEPATITIS C AB W/REFL TO HCV RNA, QN, PCR Routine 12/15/2022 9:44 AM EST Healthcare maintenance HM COLONOSCOPY Routine 07/18/2019 7:44 AM EDT from Last 3 Months or Most Recently Relevant to Health Maintenance Results * (ABNORMAL) CBC auto differential (04/12/2025 1:39 PM EDT) Only the most recent of2 resultswithin the time period is included. White Blood Count 5.5 4.8 - 10.8 X10*3/uL [facility] Red Blood Count 3.86(L) 4.60 - 5.80 X10*6/uL [facility] Hemoglobin 12.3(L) 14.0 - 18.0 g/dl [facility] Hematocrit 36.3(L) 42.0 - 52.0 % [facility] Mean Corpuscular Volume 94.0 80.0 - 98.0 fL [facility] Mean Corpuscular Hemoglobin 31.9 27.0 - 33.0 pg [facility] Mean Corpuscular HGB Conc 33.9 31.0 - 36.0 g/dl [facility] Red Cell Distribution Width 11.9 11.0 - 16.0 % [facility] Platelet Count 196 160 - 400 X10*3/uL [facility] Mean Platelet Volume 9.8 9.4 - 12.4 fL [facility] Neutrophils Percent Auto 57.9 45 - 73 % [facility] Imm Gran Pct Auto 0.4 0.0 - 0.4 % [facility] Lymphocytes Percent Auto 30.8 20 - 40 % [facility] Monocytes Percent Auto 7.3 2 - 11 % [facility] Eosinophils Percent Auto 2.9 0 - 4 % [facility] Basophils Percent Auto 0.7 0 - 2 % [facility] NRBC Pct Auto 0.0 0.0 - 0.2 /100WBC [facility] Neutrophils Absolute Auto 3.2 2.0 - 8.3 x10*3/uL [facility] Imm Gran Abs Auto 0.02 0.00 - 0.03 X10*3/uL [facility] Lymphocytes Absolute Auto 1.7 1.2 - 4.9 X10*3/uL [facility] Monocytes Absolute Auto 0.4 0.1 - 1.2 X10*3/uL [facility] Eosinophils Absolute Auto 0.2 0.0 - 0.4 X10*3/uL [facility] Basophils Absolute Auto 0.0 0.0 - 0.2 X10*3/uL [facility] NRBC Abs Auto 0.000 0.0 - 0.012 X10*3/uL [facility] 04/12/2025 1:39 PM EDT 04/12/2025 1:44 PM EDT Generic External Data Provider LAB BLOOD ORDERAB LES Final Result Performing Organization Address [facility]/ZIP Co de Phone Number [facility] [address] [place] [phone] * Lipase (04/12/2025 1:39 PM EDT) Pathologist [facility] Lipase 15 8 - 78 U/L [facility] 04/12/2025 1:39 PM EDT 04/12/2025 1:44 PM EDT Generic External Data Provider LAB BLOOD ORDERAB LES Final Result Performing Organization Address [facility] Co de Phone Number [facility] [address] [place] [phone] * (ABNORMAL) Comprehensive Metabolic Panel (04/12/2025 1:39 PM EDT) Only the most recent of2 resultswithin the time period is included. Sodium 142 135 - 145 mmol/L [facility] Potassium 4.1 3.3 - 5.1 mmol/L [facility] Chloride 105 96 - 108 mmol/L [facility] Carbon Dioxide 30(H) 22 - 29 mmol/L [facility] Anion Gap 11(L) 12 - 20 [facility] Urea Nitrogen (BUN) 27(H) 9 - 16 mg/dL [facility] Creatinine, Serum 1.46(H) 0.5 - 1.4 mg/dL [facility] Creatinine Clr Calc Pharmacy 44.8 [facility] Comment:eGFR (calculated fro m the MDRD study equation) and eCrCl(calculated from the Cockcroft-Gault equation) are based ondifferent parameters and may not yield comparable results.If eCrCl result is absurd, please check patient'sheight/weight. Estimated Glomerular Filt Rate 48 [facility] Comment:Chronic Kidney Disea se: Estimated GFR < 60 mL/min/1.88v5Lppnub Kidney Disease: Estimated GFR < 15 mL/min/1.73m2 Glucose 88 60 - 115 mg/dL [facility] Calcium 9.5 8.4 - 10.2 mg/dL [facility] Bilirubin, Total 0.8 0.0 - 1.0 mg/dL [facility] Aspartate Amino Transferase 106(H) 5 - 37 U/L [facility] Alanine Aminotransferase 29 0 - 40 U/L [facility] Total Protein 6.5 6.5 - 8.0 g/dL [facility] Albumin Level 3.7 3.5 - 5.0 g/dL [facility] Alkaline Phosphatase 99 39 - 117 U/L [facility] 04/12/2025 1:39 PM EDT 04/12/2025 1:44 PM EDT us Generic External Data Provider LAB BLOOD ORDERAB LES Final Result [facility] [address] [place] [phone] * Urinalysis w/reflex microscopic (04/12/2025 1:33 PM EDT) Color Urine Yellow [facility] Appearance Urine Clear [facility] PH 5.5 5.0 - 9.0 [facility] Glucose Urine UA Negative Negative mg/dL [facility] Urine Blood Negative Negative [facility] Specific [place] - Urine 1.015 1.005 - 1.025 [facility] Urine Protein Negative Neg-Trace mg/dL [facility] Urine Ketones Trace Negative mg/dL [facility] Nitrite Urine Negative Negative [facility] Leukocyte Esterase Urine Negative Negative [facility] 04/12/2025 1:33 PM EDT 04/12/2025 1:44 PM EDT Narrative [facility] - 04/12/2025 1:49 PM EDT [id number], Clean Catch Generic External Data Provider LAB URINE ORDERAB LES Final Result [facility] [address] [place] [phone] * (ABNORMAL) POCT Urinalysis (03/26/2025 5:27 PM [...] 5:27 PM EDT) 03/26/2025 5:27 PM EDT [facility] BUSINESS CENTER REPRESENTATIVE OUTPATIENT REFERRAL ORDERABLE S Final Result * Lipid Panel, Standard (03/01/2025 2:50 PM EDT) Triglycerides 57 <150 mg/dL [facility] Comment:Desirable Triglyceri de: less than 150 mg/dLBorderline High Triglyceride 150-199 mg/dLHigh Triglyceride: 200-499 mg/dLVery High Triglyceride: greater than or equal to 5OO mg/dL Cholesterol 177 <200 mg/dL [facility] Comment:Desirable Cholestero l: less than 200 mg/dLBorderline High Cholesterol: 200-239 mg/dLHigh Cholesterol: greater than 239 mg/dL LDL Cholesterol Calculated 94 <100 mg/dL [facility] Comment:Desirable LDL: less than 100 mg/dLNear Optimal/Above Optimal LDL: 110- 129 mg/dLBorderline High LDL: 130-159 mg/dLHigh LDL: 160-189 mg/dLVery High LDL: greater than or equal to 190 mg/dL HDL Cholesterol 72 >40 mg/dL [facility] Comment:Desirable HDL: great er than 40 mg/dL Note: This HDL assay may give artificially low results in patients with liver disease. Blood Venous blood specimen / Unknown 03/01/2025 2:50 PM EDT 03/01/2025 3:55 PM EDT [facility] LAB BLOOD ORDERABLES Edited R esult - Final [facility] [address] [place] [phone] * (ABNORMAL) POCT Glucose (02/28/2025 10:34 AM EDT) Only the most recent of2 resultswithin the time period is included. Glucose Blood, POC 195(A) 60 - 200 mg/dL [employer] Lot # [id number] Lot# Expiration Date 101,[id number] Blood Capillary blood specimen / Unknown 02/28/2025 10:34 AM EDT [facility] POINT OF CARE TEST ENTER/EDIT ORDERABLES Edited Result - Final * POCT HGB A1C (01/19/2025 4:25 PM EDT) Hemoglobin A1C 6.0 4.0 - 6.0 % QC Media Lot # [id number] Lot# Expiration Date [id number] Blood 01/19/2025 4:25 PM EDT Kadie Salazar NP POINT OF CARE TEST ENTER/EDIT OR DERABLES Edited Result - Final * (ABNORMAL) Protein Creatinine Ratio, Urine (03/13/2024 9:57 AM EDT) Creatinine, Urine 97.69 mg/dL [facility] Protein, Total, Random Urine 14(H) <12 mg/dL [facility] Protein/Creatin ine Ratio, Ur 0.14 <0.2 [facility] Comment:The spot urine prote in:creatinine ratio may increase to 0.3during normal . 03/13/2024 9:57 AM EDT 03/13/2024 11:31 AM EDT Generic External Data Provider LAB URINE ORDERAB LES Final Result Performing Organization Address City/[facility]/ZIP Co de Phone Number [facility] [address] [place] [phone] [phone] * Hepatitis C Antibody with Reflex to HCV, RNA, Quantitative, Real-Time PCR (12/15/2022 9:44 AM EST) Hepatitis C Antibody NON-REACT SIDDHARTH NON-REACT SIDDHARTH [employer] [place] [employer] Index <0.02 <1.00 [employer]. Comment: HCV antibody was non-reactive. There is no laboratory evidence of HCV infection. In most cases, no further action is required. However, if recent HCV exposure is suspected, a test for HCV RNA (test code 63563) is suggested. For additional information please refer to http://education.[employer]/faq/NOU38a4 (This link is being provided for informational/ educational purposes only.) Blood Venous blood specimen / Unknown 12/15/2022 9:44 AM EST 12/15/2022 9:45 AM EST Narrative [facility] - 12/16/2022 2:26 PM EST FASTING:UNKNOWN FASTING: UNKNOWN [facility] BUSINESS CENTER REPRESENTATIVE LAB BLOOD ORDERABLES Final Re sult Performing Organization Address City/[facility]/ZIP Co de Phone Number [facility] [address] [place] [address], [place] [address] [facility] [place] [facility] [address], ([address]) [place] [address] * Hm Colonoscopy (07/18/2019 7:44 AM EDT) us Historical Provider HEALTH MAINTENANCE Final Result from Last 3 Months or Most Recently Relevant to Health Maintenance Insurance [facility] [employer] (HMO D-SNP) JUAN ASHBY [id number] [place] [address] [place] [address] Care Teams Seamer Elastic Band Relationship Specialty Start Date End Date Krysta Lockett FNP [address] [place] [phone] PCP - General Family Medicine 10/27/22
[2025-04-12 16:54] VITALS: BP 142/77; PULSE 89; RESP 16; TEMP 36.6; O2SAT 100
[2025-04-12 17:00] VITALS: BP 142/77; PULSE 89; RESP 16; TEMP 36.6; O2SAT 100
== END 2025-04-12 17:01 | disposition home or self-care (01) ==
PROVIDERS: Emergency Provider Emergency Medicine
DX: M54.6 Pain in thoracic spine (principal); R10.2 Pelvic and perineal pain; R10.31 Right lower quadrant pain; Z79.899 Other long term (current) drug therapy; Z86.718 Personal history of other venous thrombosis and embolism; Z79.01 Long term (current) use of anticoagulants; Z86.711 Personal history of pulmonary embolism; Z87.891 Personal history of nicotine dependence
CPT/HCPCS: 36415; 76705; 80053; 81003; 83690; 85025; 93005; 99284

== ENCOUNTER → 2025-04-12 13:03 | Outpatient (BNV) | payer OTHER, SELFPAY | PROVIDERS: Emergency Provider Emergency Medicine; Visit Provider Internal Medicine | DX: R10.9 Unspecified abdominal pain (principal) | CPT/HCPCS: 93010 ==

== ENCOUNTER → 2025-04-12 13:11 | Outpatient (BNV) | payer OTHER, SELFPAY | PROVIDERS: Emergency Provider Emergency Medicine; Visit Provider Radiology Diagnostic Radiology | DX: K80.20 Calculus of gallbladder without cholecystitis without obstruction (principal); R10.11 Right upper quadrant pain | CPT/HCPCS: 76705 ==

== ENCOUNTER 2025-05-23 09:11 | Outpatient (REF) | payer OTHER, SELFPAY ==
--- OUTSIDE RECORDS SUMMARY | 2025-05-23 09:29 | XMS_ITS | Clinical Summary ---
Author Organization [facility] Facility Address [address] [address] Care Team Providers Care School Guard Name Role Phone Unavailable Primary Care Provider [...] Visual Foot Exam 12/08/2020 Influenza Vaccine (#1) 2025 Hepatitis B Vaccine Aged Out No [...] % PVNMA 08/21/2020 us [facility] [id number] LICITED RESULTS Final Result PVNMA from Last 3 Months or Most Recently Relevant to Health Maintenance Insurance [place] Medicare
--- OUTSIDE RECORDS SUMMARY | 2025-05-23 09:29 | XMS_ITS | Clinical Summary ---
Author Organization [facility] ity Address [address] [place] [address] Care Team Providers Care Director Sales And Trade Marketing Name Role Phone Unavailable Primary Care Provider [...] Vaccines (1 of 2) 2006 COVID-19 Vaccine (1 - 2023-2 5 season) 2024 Influenza Vaccine (#1) 2025 RSV Immunization Adult Patie nts (1 [...]
--- OUTSIDE RECORDS SUMMARY | 2025-05-23 09:29 | XMS_ITS | Data Portability ---
Author Organization [email or web address] [facility] [place], [facility] Address [address] [place] [address] Care Team Providers Care Fleece Tier Name Role Phone HIM CCA OTHER [facility] Primary Care Provider [phone] Assessment Encounter Date Assessment Date Assessment LastModified by Organization Details LastModified Time 01/19/2025 01/19/2025 I provided real -time medical direction via phone for this encounter and was available for additional phone-based assistance as needed. I have reviewed and agree with the Assessment and Plan as documented by the Line Servicer. Patient given the opportunity to ask questions. Our service contacted for an assessment of: elevated BG As per above, patient with elevated BG and went to see his doctor today to obtain blood work to see what medications he can be started on. He is eating and drinking normally. No polyuria, polydipsia or polyphagia. No unusual weight loss. Per burr mill operator on the scene, VSS, BG 157 [...] Assessment and Plan as documented by the Line Servicer. We discussed the diagnostic uncertainty of home [...] call 911- verbalized understanding of instructions vis digital specialist [email or web address] Not available 01/23/2025 18:01:10 Plan of Treatment Reminders Order Date Submit Date Provider Last Modified By Organization Details Last Modified Time Details Appointments None recorded. Lab glucose, fingerstick , blood 2024 025 [email or web address] [facility], [address] [place] [address], [phone] 17:26:47 urinalysis, dipstick [address], [phone] 09:16:17 glucose, fingerstick , blood [address], [address] 19:19:25 Referral None recorded. Procedures None recorded. Surgeries None recorded. Imaging None recorded. Medication Orders acetaminoph en 500 mg tablet 2024 025 [email or web address] 0 [id number] [address], [place], [phone], 17:34:06 Patient TargetsNo targets recorded. Patient InstructionsNo instructions recorded. Reason for Referral None Reported. Results Created Date Observation Date Name Description Value Unit Range Abnormal Flag Note LastModifiedBy Organization Detail LastModifiedTime 01/20/2001/19/2025 brown dorantes se, blood Blood Glucose: mg/dl 157 Not Available [address], [phone] 01/19/2025 17:07:38 01/24/2001/23/2025 brown dorantes setic k, blood Blood Glucose: mg/dl 118 Not Available [facility] [address] [place] [address], [place], [phone] 01/23/2025 17:26:29 Result Notes None recorded. Medical Equipment None Reported. Allergies Allergen ID Allergen Name Allergen Category Reaction Reaction Severity Criticality Documentation Date Start Date Code Code System Note Provider Name and Address Organization Details Recorded Time 38303 aspirin medicatio n Not available Not available Not available 01/17/2025 1191 RxNorm Not Available [facility] - production 16:33:47 64191 Product containin g penicilli n (product) medicatio n Not available Not available Not available 01/17/2025 06818 8001 SNOMED Not Available [facility] - production 16:33:47 27624 Non-stero idal anti-infl ammatory agent (product) medicatio n Not available Not available Not available 01/17/2025 95367 005 SNOMED Not Available [facility] - production [...] Body height Heart rate Respiratory rate Systolic And Diastolic Provider Name and Address Organization Details Last Updated DateTime 5 99 % 99 % 28237.4 8 g 177.8 cm 67 /min 16 /min 155/74 mm[Hg] Not Available [facility] 16:59:59 Date Recorded Body weight Body mass index (BMI) Provider Name and Address Organization Details Last Updated DateTime 01/23/2025 07627.55 g 27.3 kg/m2 Kerrie Kerr MD [address] [place] [address],[address] [facility], [place], [address], [place] 01/23/2025 17:55:55 Date Recorded Respiratory rate Heart rate Body height Oxygen saturation Oxygen saturation in Arterial blood by Pulse oximetry Body temperature Systolic And Diastolic Provider Name and Address Organization Details Last Updated DateTime 5 18 /min 64 /min 177.8 cm 98 % 98 % 98.7 [degF] 146/81 mm[Hg] Not Available [facility] 5 17:24:57 Social History None recorded. Functional Status None recorded. Mental Status None recorded. Family History Nothing Reported. Medical History No medical history recorded. Past Encounters Encounter ID Performer Location Encounter Start Date Encounter Closed Date Diagnosis/Indication Diagnosis SNOMED-CT Code Diagnosis ICD10 Code Diagnosis Note [id number] Sandra Olvera MD [facility] [address] [place] [phone] 01/19/2025 16:25:38 01/22/2025 22:06:20 Hyperglycemia 61526650 R73.9 [id number] Kerrie Kerr MD [facility] [address] [place] [phone] 01/23/2025 17:24:55 01/23/2025 19:49:59 Type 2 diabetes mellitus 33278716 E11.9 w/ mild headache- c/o urinary frequency [...] Jones Member ID Guarantor Name 01/30/2025 1 [facility] - DOS ON OR AFTER 2023 - DUAL ELIGIBLE - SENIOR LIVING OPTIONS AND ONE CARE (MEDICARE REPLACEMENT/ADV ANTAGE - HMO) Armando Gay [id number] Armando Gay Notes Date Note Type Note [...] at 01/17/2025:33 Allergies Reviewed at 01/17/2025:33 Comments: HPI reviewed Line Servicer Organization Information for Waqas Wright [employer] Legal Name: [employer]. Address: [address] [place] [address], Child Watch Attendant: Andrew Woo MD ROSE No.: [id number] Line Servicer POC Test Results from Waqas Wright Blood Glucose Measurement (17:03:58) Blood Glucose: 157 mg/dL ....................... ....................... ....................... ....................... ....................... ....................... ... Line Servicer Note From Waqas Wright: [facility] makes pt contact. He is standing in his doorway watching for [facility] arrival. He is generally well appearing and walks and moves w/o hinderance. No ashen or maguire color is noted, his chest rises and falls softly w/ respirations w/ no stridor or sonorous respirations present. No facial droop, one-sided weakness, or slurred speech are observed and he is not bleeding anywhere. Pt is Israeli-speaking only and daughter is on scene for [...] Pt consents to treatment and evaluation today. [facility] obtains pt consent, vital signs are gathered, and pt is assessed. Lung sounds are clear and equal to auscultation, abdomen is soft and nontender, w/ no guarding, distension, or pulsating masses, bilateral LE's have 1+ edema. FSBS is obtained and is 157. [facility] contacts [facility] and discusses the above. [facility] recommends pt wait on results of his lab work as his physical exam and vital signs are noted life-threatening or concerning at this time. [facility] informs pt to seek emergency room care if he develops a high fever, n/v/d he can't control, bloody emesis or stools, cp, or sob. Daughter translates and pt expresses his verbal understanding. [facility] is clear. Report completed by TUNDE Wright [id number]. [facility] Lab Orders: glucose, fingerstick, blood: Performed ....................... ....................... ....................... ....................... ....................... ....................... ... [facility] Consulted: Sandra Olvera ....................... ....................... ....................... ....................... ....................... ....................... ... Disposition: Fulfilled Sandra Olvera MD [address] [place] [address],[address], [place], [phone], 3225 films 01/19/2025 19:15:09 01/23/2025 text/html CRC Nurse Triage [...] - 16:07Allergies Reviewed at 01/23/2025 - 16:07Comments: Security Rep verified the patient's name//address and phone number. [...] emergency treatment if needed -Alexander Mims RN Line Servicer Organization Information for Janice Pinedo Legal Name: [employer]. Address: [address] [place] [address], USMedical Director: Andrew LOPES No.: [id number] Line Servicer POC Test Results from Janice Pinedo Blood [...] - 16:07Allergies Reviewed at 01/23/2025 - 16:07Comments: Security Rep verified the patient's name//address and phone number. [...] emergency treatment if needed -Alexander Mims RN Line Servicer Organization Information for Janice Pinedo Legal Name: [employer]. Address: [address] [place] [address], USMedical Director: Andrew LOPES No.: [id number] Line Servicer POC Test Results from Janice Pinedo Blood [...] ....................... ....................... ....................... ....................... ....................... ....................... ... Line Servicer Note From Janice Pinedo: Sent to a call for a pt complaining of high blood sugar. [facility] arrives on scene, pt is alert and oriented, airway is patent. Pt speaks Israeli, and pt's daughter (via phone) serves as digital specialist. Pt complains of high blood sugar x [...] unremarkable; Extremities: unremarkable; Skin: pink, warm, dry; [facility] consulted and orders urine dip and Tylenol 1gm PO. Pt advised not to exceed Tylenol 3gms daily. Urine sample obtained via clean catch; Urine dip results: uploaded to [employer]; Tylenol 1gm PO administered without incident. Pt is advised to eat protein with carbs, avoid fried foods, and given food alternatives for better diabetic diet. Pt is reassured urine has no glucose or ketones. Pt is advised to follow up with PCP regarding treatment plan. Red flags discussed. Pt/family has no further questions. [facility] Lab Orders: glucose, fingerstick, blood: Performed urinalysis, dipstick: Performed [facility] Medication Orders: acetaminophen 500 mg tablet: Administered ....................... ....................... ....................... ....................... ....................... ....................... ... [facility] Consulted: Kerrie Kerr .Seema.................... ....................... ....................... ....................... ....................... ....................... ... Disposition: Fulfilled Kerrie Kerr MD [address] [place] [address],[address], [place], [phone], DARREN SALINAS 01/23/2025 19:12:43
--- OUTSIDE RECORDS SUMMARY | 2025-05-23 09:29 | XMS_ITS | Clinical Summary ---
Author Organization [employer] Address [address] [place] [address] [address] [place] [address] Care Team Providers Care Roll Press Operator Name Role Phone Krysta Lockett DIRECTOR INTERNAL AUDIT Primary Care Provider [phone] Allergies Active Allergy Reactions Criticality Noted Date Comments Aspirin Itching 11/13/2010 Other reaction(s): Itching Nsaids 07/10/2021 Other reaction(s): Other (see comments) Penicillins Itching 11/13/2010 Other reaction(s): Itching Medications * This document contains information received from the source organization and may not represent a complete record from that organization. traMADol (Ultram) 50 MG tablet TAKE 1 TABLET BY MOUTH EVERY TWELVE HOURS 023 Active Spiriva HandiHaler 18 MCG inhalation capsuleIndicati ons:Chronic obstructive pulmonary disease, unspecified COPD type (CMS/HCC) USE 1 CAPSULE FOR INHALATION ONCE A DAY DO NOT SWALLOW CAPSULE 30 capsule 11 023 Active midodrine (Proamatine) 2.5 MG tabletIndicatio ns:Orthostatic hypotension TAKE 1 TABLET BY MOUTH TWICE DAILY IN THE MORNING AND AT BEDTIME 60 tablet 3 024 Active gabapentin (Neurontin) 100 MG capsuleIndicati ons:Pain TAKE 1 CAPSULE BY MOUTH AT BEDTIME 30 capsule 3 024 Active ascorbic acid (Vitamin C) 250 MG chewable tabletIndicatio ns:Seasonal allergies TAKE 1 TABLET BY MOUTH EVERY MORNING WITH IRON (CHEW) 90 tablet 1 024 Active loratadine (Claritin) 10 MG tabletIndicatio ns:Seasonal allergies TAKE 1 TABLET BY MOUTH EVERY DAY 90 tablet 1 024 Active FeroSul 325 (65 Fe) MG tabletIndicatio ns:Anemia of chronic disease TAKE 1 TABLET BY MOUTH EVERY MORNING 90 tablet 1 024 Active fluticasone (Flonase) 50 MCG/ACT nasal sprayIndication s:Seasonal allergies USE 2 SPRAYS IN EACH NOSTRIL EVERY DAY 48 g 024 Active Fluticasone-Delroy meterol 100-50 MCG/ACT aerosol powderIndicatio ns:Chronic obstructive pulmonary disease, unspecified COPD type ([facility]) INHALE 1 PUFF TWICE DAILY. RINSE MOUTH AFTER USING. 60 each 11 024 Active glucose 4 g chewable tabletIndicatio ns:Type 2 diabetes mellitus with hypoglycemia without coma, without long-term current use of insulin ([facility]) Chew 4 tablets (16 g) if needed for low blood sugar. 50 tablet 12 024 2024 Active Diclofenac Sodium 1 % gelIndications: Other chronic pain Apply topically to affected areas twice daily 150 g 024 Active Continuous Glucose Sensor (FreeStyle Iglesia 2 Sensor) miscIndications :Type 2 diabetes mellitus with hypoglycemia without coma, without long-term current use of insulin ([facility]) Apply 1 sensor every 14 days 2 each 2 024 Active Continuous Glucose Grocery Store Manager (FreeStyle Iglesia 2 [place]) deviceIndicatio ns:Type 2 diabetes mellitus with hypoglycemia without coma, without long-term current use of insulin ([facility]) Scan sensor every 8 hours 1 each 024 Active folic acid (Folvite) 1 MG tabletIndicatio ns:Stage 3a chronic kidney disease ([facility]) TAKE 1 TABLET BY MOUTH EVERY MORNING 90 tablet 1 024 Active acetaminophen (Tylenol Extra Strength) 500 MG tabletIndicatio ns:Chronic left shoulder pain Take 2 tablets (1,000 mg) by mouth every 6 (six) hours if needed for moderate pain. 30 tablet 1 024 2024 Active lidocaine (Lidoderm) 5 % patchIndication s:Chronic left shoulder pain Apply topically to affected areas. Leave on for up to 12 hours 30 patch 1 024 Active omeprazole (PriLOSEC) [address] capsuleIndicati ons:Dyspepsia TAKE 1 CAPSULE BY MOUTH EVERY MORNING BEFORE A MEAL 90 capsule 1 024 Active Blood Pressure kitIndications: Elevated blood pressure reading 1 kit 1 (one) time per week. 1 kit 025 Active sildenafil (Viagra) 25 MG tabletIndicatio ns:Erectile dysfunction, unspecified erectile dysfunction type Take 1 tablet (25 mg) by mouth if needed each day for erectile dysfunction. 1 hour before sexual activity 30 tablet 025 Active traZODone (Desyrel) 100 MG tablet TAKE 1 TABLET BY MOUTH AT BEDTIME 30 tablet 5 025 Active Eliquis 5 MG tabletIndicatio ns:Acute deep vein thrombosis (DVT) of other vein of lower extremity, unspecified laterality (CMS/HCC) TAKE 1 TABLET BY MOUTH TWICE DAILY ONCE EVERY MORNING AND ONCE EVERY NIGHT AT BEDTIME 60 tablet 3 025 Active Trulicity 0.75 MG/0.5ML solution auto-injectorIn dications:Type 2 diabetes mellitus with hypoglycemia without coma, without long-term current use of insulin (CMS/HCC) INJECT ONE PEN (=0.75MG) SUBCUTANEOUSLY ONCE A WEEK DIRECTED 2 mL 1 025 Active Dulaglutide (Trulicity) 0.75 MG/0.5ML solution auto-injectorIn dications:Type 2 diabetes mellitus with hypoglycemia without coma, without long-term current use of insulin (CMS/HCC) Inject 0.75 mg under the skin 1 (one) time per week. 2 mL 1 025 2024 Discontinued Active Problems Problem Noted Date Diagnosed [...] no improvement -gave today to pt # [phone] of his vascular office to call and reschedule apt --I called today as well Dr Beckham's office and left my phone number for a call back from vascular -referred to cards to r/o cardiac etiology -tylenol prn x pain in legs -raise legs -continue use of pneumatic compression -alarm signs and symptoms explained Venous insufficiency 12/23/2022 Overview (12/23/2022): Followed by [facility] vascular Negative LE ultrasound 11/2022 Assessment & Plan (12/23/2022 9:45 PM EST): Encouraged frequent leg elevation and use of compression stockings. Advised patient to bring stockings to upcoming vascular appt to review instructions for how to put on correctly. Pt may benefit from furosemide, however will hold off at this time since pt has upcoming vascular f/u Contact HC if sx worsen or do [...] DVT (deep vein thrombosis) 12/15/2022 Overview (12/23/2022): Followed by [facility] Dr. Beckham; 09/22/2022-dx [...] Anemia of chronic disease 07/28/2017 Overview (12/23/2022): Baseline Hgb 11.6 12/15/22 Chronic obstructive lung disease 07/28/2017 Overview (12/21/2023): Trelegy Yearly Ct scan for lung nodule Followed by pulmonology Non-smoker, alpha 1 antitrypsin WNL Assessment & Plan (12/23/2022 9:47 PM EST): Continue current regimen Refer to pulmonology for further evaluation after recent exacerbation requiring hospitalization Repeat CXR in 2 weeks for resolution of PNU ED precautions reviewed to include fever, increased sputum production, shortness of breath Hypertensive disorder 07/28/2017 Overview (02/02/2023): Diet controlled since bariatric surgery Maintenance: BMP: [...] NSR no ischemic findings -referred today to ergonomics consultant x complete eval of echocardiogram x orthopnea and given risk factors r/CAD -alarm signs and symptoms discussed w pt -pt to f w PCP in 4 weeks Memory impairment 07/28/2017 Overview (12/15/2022): Brain MRI 06/2022 unremarkable B12 and B1 WNL Followed by neurology Mood disorder 07/28/2017 Stage 3 chronic kidney disease 07/28/2017 Overview (12/23/2022): Follow[facility] Donovan GABRIEL Assessment & Plan (12/17/2023 5:52 PM EST): Will refer back to nephrology Avoid NSAIDs, maintain hydration Type 2 diabetes mellitus 07/28/2017 Overview (12/17/2023): Diet controlled after bariatric surgery 2020 A1c 5.0% 12/14/2020 Foot Exam: Complete at [...] Results Component Value Date HGBA1C 5.5 12/08/2023 Well controlled Will update labs Gastroesophageal reflux disease without [...] organization. Date Type Department Care Team Description 04/24/2025 Refill [facility] [address] [place] [address] Krysta Lockett FNP Type 2 diabetes mellitus with hypoglycemia without coma, without long-term current use of insulin ([facility]) 04/12/2025 Orders Only GENERIC EXTERNAL DATA DEPARTMENT Provider, Generic External Data 03/28/[address] [address] Krysta Lockett FNP stable lab letter 03/28/[address] [address] Krysta Lockett FNP Acute deep vein thrombosis (DVT) of other vein of lower extremity, unspecified laterality ([facility]) 03/27/[address] [address] Krysta Lockett FNP ER Follow-up 03/26/2025 5:40 PM EDT Office Visit [facility] [address] [place] [phone] Jess Manrique MD Status post bariatric surgery (Primary Dx); Stage 3 chronic kidney disease, unspecified whether stage 3a or 3b CKD ([facility]); Abdominal wall hernia; Primary hypertension 03/26/2025 Telephone [facility] [address] [place] [phone] Manju France, RN WIC triage 03/26/[address] [address] Krysta Lockett FNP Nurse Triage 03/07/2025 Refill [facility] [address] [place] [address] [place] [address] Krysta Lockett FNP 03/06/2025 Telephone [facility] [place] [address] Krysta Lockett FNP Letter for School/Work 02/28/2025 10:15 AM EDT Office Visit [facility] [place] [address] Krysta Lockett DIRECTOR INTERNAL AUDIT Type 2 diabetes mellitus with hypoglycemia without coma, without long-term current use of insulin ([facility]) (Primary Dx); Erectile dysfunction, unspecified erectile dysfunction type 02/28/2025 Travel from Last 3 Months Immunizations Immunization Administration [...] 62 03/26/2025 5:22 PM EDT Temperature 36.5 C (97.7 F) 03/26/2025 5:22 PM EDT Respiratory Rate 20 03/26/2025 5:22 [...] Eye Exam 1966 Alcohol/Substance Use Screening 1968 Colonoscopy 07/18/2022 07/18/2019 Colorectal Cancer Screening 07/18/2022 COVID-19 Vaccine ( season) 2025 07/15/2024, 09/10/2023, 10/15/2021, Additional history exists Diabetes: Urine Protein Screening 03/13/2025 03/13/2024, 12/08/2023, 04/23/2021, Additional history exists Influenza Vaccine (#1) 2025 , 12/08/2023, 07/30/2022, Additional history exists Diabetes: Hemoglobin A1C 07/22/2025 025, 06/28/2024, 12/08/2023, Additional history exists Depression Screening 02/28/2026 02/28/2025, 02/29/20 25 SDOH Screening 02/28/2026 02/28/2025 Lipid Panel 03/01/2026 03/01/2025, 06/07/2023, 12/15/2022, Additional history exists Tobacco Screening 03/26/2026 03/26/2025 DTaP/Tdap/Td Vaccines (3 - Td or Tdap) 12/08/2033 12/08/2023, 09/26/2013, 12/20/2012, Additional history exists Hepatitis B Vaccines Completed 11/19/2014, 09/18/2014, 03/15/2014 Hepatitis C Screening Completed 12/15/2022 Zoster Vaccines Completed 09/02/2023, 06/09, 07/28/2017 Pneumococcal Vaccine: 50+ Years Completed 12/08/2023, 04/24/2021, 09/22/2010, Additional history exists RSV Patients and Patients Aged 60 years or older Completed 07/15/2024 HIB Vaccines Aged Out No longer eligi [...] Name Priority Date/Time Associated Diagnosis Comments US ABDOMEN LIMITED Routine 04/12/2025 2: 25 PM EDT LIPASE Routine 04/12/2025 1:39 PM EDT COMPREHENSIVE [...] Recently Relevant to Health Maintenance Results * US Abdomen Limited (04/12/2025 2:25 PM EDT) Anatomical Region Laterality Modality Abdomen Ultrasound 04/12/2025 2:25 PM EDT Narrative 04/12/2025 3:59 PM EDT [place] [id number] Ultrasound Report Signed Patient: Armando Ba MR#: [id number] : 1955 Acct:[id number] Age/Sex: 70 / M ADM Date: 04/12/25 Loc: HO.ED Attending Dr: Ordering Physician: Thea Puckett Date of Service: 04/12/25 Procedure(s): US abdomen limited Accession Number(s): [id number] cc: [facility]; Thea Puckett EXAMINATION: US ABDOMEN LIMITED CLINICAL INFORMATION: Right flank pain. COMPARISON: 03/26/2025. TECHNIQUE: Real-time imaging of the right upper quadrant abdominal viscera. FINDINGS: PANCREAS: Largely obscured by gas. LIVER: The liver is normal in size. The liver contour is normal. There is diffuse increased liver parenchymal echogenicity, consistent with hepatic steatosis. No focal hepatic lesion. There is no intrahepatic biliary duct dilatation seen. GALLBLADDER: Gallbladder demonstrates intraluminal shadowing gravel size gallstones. No wall thickening or pericholecystic fluid collection. Negative sonographic Nicole's sign. COMMON BILE DUCT: Normal in caliber measuring 0.3 cm in diameter. RIGHT KIDNEY: No hydronephrosis. No renal calculi or focal parenchymal lesions. The kidney measures 10.2 cm in maximum dimension. FREE FLUID: None. US/US abdomen limited IMPRESSION: 1. Intraluminal shadowing gravel size gallstones. No definite wall thickening or pericholecystic fluid collection. Negative sonographic Nicole's sign. 2. Mildly echogenic liver suggesting steatosis. No focal lesion. 3. Normal bile ducts without biliary dilatation. 3. Normal right kidney without hydronephrosis. Electronically signed by: Jasiel Echevarria MD 04/12/2025 03:57 PM EDT Dictated By: Jasiel Echevarria MD Signed By: <Electronically signed by Jasiel Echevarria MD in OV> 04/12/25 1557 DD/ 1425 TD/TT: 04/12/25 1500 Discotheque Dancer: Procedure Note Donotuseinterpreter, Image - 04/12/2025 [place] [address] Ultrasound Report Signed Patient: Armando Ba#: [id number] : 6Acct:[id number] Age/Sex: 70 / MADM Date: 04/12/25 Loc: HO.ED Attending Dr: Ordering Physician: Thea Puckett Date of Service: 04/12/25 Procedure(s): US abdomen limited Accession Number(s): [id number] cc: [facility]; Thea Puckett EXAMINATION: US ABDOMEN LIMITED CLINICAL INFORMATION: Right flank pain. COMPARISON: 03/26/2025. TECHNIQUE: Real-time imaging of the right upper quadrant abdominal viscera. FINDINGS: PANCREAS: Largely obscured by gas. LIVER: The liver is normal in size. The liver contour is normal. There is diffuse increased liver parenchymal echogenicity, consistent with hepatic steatosis. No focal hepatic lesion. There is no intrahepatic biliary duct dilatation seen. GALLBLADDER: Gallbladder demonstrates intraluminal shadowing gravel size gallstones. No wall thickening or pericholecystic fluid collection. Negative sonographic Nicole's sign. COMMON BILE DUCT: Normal in caliber measuring 0.3 cm in diameter. RIGHT KIDNEY: No hydronephrosis. No renal calculi or focal parenchymal lesions. The kidney measures 10.2 cm in maximum dimension. FREE FLUID: None. US/US abdomen limited IMPRESSION: 1. Intraluminal shadowing gravel size gallstones. No definite wall thickening or pericholecystic fluid collection. Negative sonographic Nicole's sign. 2. Mildly echogenic liver suggesting steatosis. No focal lesion. 3. Normal bile ducts without biliary dilatation. 3. Normal right kidney without hydronephrosis. Electronically signed by: Jasiel Echevarria MD 04/12/2025 03:57 PM EDT Dictated By: Jasiel Echevarria MD Signed By: <Electronically signed by Jasiel Echevarria MD in OV> 04/12/25 1557 DD/ 1425 TD/TT: 04/12/25 1500 Discotheque Dancer: us [facility] External Provider IMG US PROCEDURES Edited Result - Final * (ABNORMAL) CBC auto differential (04/12/2025 1:39 PM EDT) Only the most recent of2 resultswithin the time period is included. White Blood Count 5.5 4.8 - 10.8 X10*3/uL [facility] Red Blood Count 3.86(L) 4.60 - 5.80 X10*6/uL [facility] Hemoglobin 12.3(L) 14.0 - 18.0 g/dl [facility] Hematocrit 36.3(L) 42.0 - 52.0 % [facility] Mean Corpuscular Volume 94.0 80.0 - 98.0 fL [facility] Mean Corpuscular Hemoglobin 31.9 27.0 - 33.0 pg [facility] Mean Corpuscular HGB Conc 33.9 31.0 - 36.0 g/dl [facility] Red Cell Distribution Width 11.9 11.0 - 16.0 % [facility] Platelet Count 196 160 - 400 X10*3/uL [facility] Mean Platelet Volume 9.8 9.4 - 12.4 fL [facility] Neutrophils Percent Auto 57.9 45 - 73 % [facility] Imm Gran Pct Auto 0.4 0.0 - 0.4 % [facility] Lymphocytes Percent Auto 30.8 20 - 40 % [facility] Monocytes Percent Auto 7.3 2 - 11 % [facility] Eosinophils Percent Auto 2.9 0 - 4 % [facility] Basophils Percent Auto 0.7 0 - 2 % [facility] NRBC Pct Auto 0.0 0.0 - 0.2 /100WBC [facility] Neutrophils Absolute Auto 3.2 2.0 - 8.3 x10*3/uL [facility] Imm Gran Abs Auto 0.02 0.00 - 0.03 X10*3/uL [facility] Lymphocytes Absolute Auto 1.7 1.2 - 4.9 X10*3/uL [facility] Monocytes Absolute Auto 0.4 0.1 - 1.2 X10*3/uL [facility] Eosinophils Absolute Auto 0.2 0.0 - 0.4 X10*3/uL [facility] Basophils Absolute Auto 0.0 0.0 - 0.2 X10*3/uL [facility] NRBC Abs Auto 0.000 0.0 - 0.012 X10*3/uL [facility] 04/12/2025 1:39 PM EDT 04/12/2025 1:44 PM EDT us Generic External Data Provider LAB BLOOD ORDERAB LES Final Result [facility] [address] [place] [address] [phone] * Lipase (04/12/2025 1:39 PM EDT) Lipase 15 8 - 78 U/L [facility] 04/12/2025 1:39 PM EDT 04/12/2025 1:44 PM EDT us Generic External Data Provider LAB BLOOD ORDERAB LES Final Result [facility] [address] [place] [address] [phone] * (ABNORMAL) Comprehensive Metabolic Panel (04/12/2025 1:39 PM EDT) Only the most recent of2 resultswithin the time period is included. Sodium 142 135 - 145 mmol/L [facility] Potassium 4.1 3.3 - 5.1 mmol/L [facility] Chloride 105 96 - 108 mmol/L [facility] Carbon Dioxide 30(H) 22 - 29 mmol/L [facility] Anion Gap 11(L) 12 - 20 [facility] Urea Nitrogen (BUN) 27(H) 9 - 16 mg/dL [facility] Creatinine, Serum 1.46(H) 0.5 - 1.4 mg/dL [facility] Creatinine Clr Calc Pharmacy 44.8 [facility] Comment:eGFR (calculated fro m the MDRD study equation) and eCrCl(calculated from the Cockcroft-Gault equation) are based ondifferent parameters and may not yield comparable results.If eCrCl result is absurd, please check patient'sheight/weight. Estimated Glomerular Filt Rate 48 [facility] Comment:Chronic Kidney Disea se: Estimated GFR < 60 mL/min/1.22j5Traaze Kidney Disease: Estimated GFR < 15 mL/min/1.73m2 Glucose 88 60 - 115 mg/dL [facility] Calcium 9.5 8.4 - 10.2 mg/dL [facility] Bilirubin, Total 0.8 0.0 - 1.0 mg/dL [facility] Aspartate Amino Transferase 106(H) 5 - 37 U/L [facility] Alanine Aminotransferase 29 0 - 40 U/L [facility] Total Protein 6.5 6.5 - 8.0 g/dL [facility] Albumin Level 3.7 3.5 - 5.0 g/dL [facility] Alkaline Phosphatase 99 39 - 117 U/L [facility] 04/12/2025 1:39 PM EDT 04/12/2025 1:44 PM EDT Generic External Data Provider LAB BLOOD ORDERAB LES Final Result Performing Organization Address [facility] Co de Phone Number [facility] [address] [place] [phone] * Urinalysis w/reflex microscopic (04/12/2025 1:33 PM EDT) Color Urine Yellow [facility] Appearance Urine Clear [facility] PH 5.5 5.0 - 9.0 [facility] Glucose Urine UA Negative Negative mg/dL [facility] Urine Blood Negative Negative [facility] Specific Martin - Urine 1.015 1.005 - 1.025 [facility] Urine Protein Negative Neg-Trace mg/dL [facility] Urine Ketones Trace Negative mg/dL [facility] Nitrite Urine Negative Negative [facility] Leukocyte Esterase Urine Negative Negative [facility] 04/12/2025 1:33 PM EDT 04/12/2025 1:44 PM EDT Narrative [facility] - 04/12/2025 1:49 PM EDT [id number], Clean Catch Generic External Data Provider LAB URINE ORDERAB LES Final Result Performing Organization Address [facility] Co de Phone Number [facility] [address] [place] [phone] * (ABNORMAL) POCT Urinalysis (03/26/2025 5:27 [...] 5:27 PM EDT) 03/26/2025 5:27 PM EDT [facility] OUTPATIENT REFERRAL ORDERABLE S Final Result * Lipid Panel, Standard (03/01/2025 2:50 PM EDT) Triglycerides 57 <150 mg/dL [facility] Comment:Desirable Triglyceri de: less than 150 mg/dLBorderline High Triglyceride 150-199 mg/dLHigh Triglyceride: 200-499 mg/dLVery High Triglyceride: greater than or equal to 5OO mg/dL Cholesterol 177 <200 mg/dL [facility] Comment:Desirable Cholestero l: less than 200 mg/dLBorderline High Cholesterol: 200-239 mg/dLHigh Cholesterol: greater than 239 mg/dL LDL Cholesterol Calculated 94 <100 mg/dL [facility] Comment:Desirable LDL: less than 100 mg/dLNear Optimal/Above Optimal LDL: 110- 129 mg/dLBorderline High LDL: 130-159 mg/dLHigh LDL: 160-189 mg/dLVery High LDL: greater than or equal to 190 mg/dL HDL Cholesterol 72 >40 mg/dL [facility] Comment:Desirable HDL: great er than 40 mg/dL Note: This HDL assay may give artificially low results in patients with liver disease. Blood Venous blood specimen / Unknown 03/01/2025 2:50 PM EDT 03/01/2025 3:55 PM EDT [facility] LAB BLOOD ORDERABLES Edited R esult - Final [facility] [address] [place] [phone] * (ABNORMAL) POCT Glucose (02/28/2025 10:34 AM EDT) Glucose Blood, POC 195(A) 60 - 200 mg/dL [employer] Media Lot # [id number] Lot# Expiration Date [id number] Blood Capillary blood specimen / Unknown 02/28/2025 10:34 AM EDT [facility] POINT OF CARE TEST ENTER/EDIT ORDERABLES Edited [...] 9:57 AM EDT) Creatinine, Urine 97.69 mg/dL [facility] Protein, Total, Random Urine 14(H) <12 mg/dL [facility] Protein/Creatin ine Ratio, Ur 0.14 <0.2 [facility] Comment:The spot urine prote in:creatinine ratio may increase to 0.3during normal . 03/13/2024 9:57 AM EDT 03/13/2024 11:31 AM EDT Generic External Data Provider LAB URINE ORDERAB LES Final Result [facility] [address] [place] [phone] * Hepatitis C Antibody with Reflex to HCV, RNA, Quantitative, Real-Time PCR (12/15/2022 9:44 AM EST) Hepatitis C Antibody NON-REACT SIDDHARTH NON-REACT SIDDHARTH [employer] Index <0.02 <1.00 [employer] [place] [facility] Comment: HCV antibody was non-reactive. There is no laboratory evidence of HCV infection. In most cases, no further action is required. However, if recent HCV exposure is suspected, a test for HCV RNA (test code 29299) is suggested. For additional information please refer to [email or web address]/faq/FFM22o1 (This link is being provided for informational/ educational purposes only.) Blood Venous blood specimen / Unknown 12/15/2022 9:44 AM EST 12/15/2022 9:45 AM EST Narrative [facility] - 12/16/2022 2:26 PM EST FASTING:UNKNOWN FASTING: UNKNOWN [facility] DIRECTOR INTERNAL AUDIT LAB BLOOD ORDERABLES Final Re sult Performing Organization Address City/[facility]/ZIP Co de Phone Number [facility] [address], [facility], [place] [address] [employer] [place] [facility] [address], ([address]) [place] [address] * Hm Colonoscopy (07/18/2019 7:44 AM EDT) Historical Provider HEALTH MAINTENANCE Final Result from Last 3 Months or Most Recently Relevant to Health Maintenance Insurance [facility] FDC OPTIONS (O D-SNP) Care Teams Roll Press Operator Relationship Specialty Start Date End Date Krysta Lockett FNP [address] [place] [address] PCP - General Family Medicine 10/27/22
== END 2025-05-23 09:12 | disposition home or self-care (01) ==
LOC: HO.US 09:11
PROVIDERS: Visit Provider Physician Assistant Surgical
DX: Z13.89 Encounter for screening for other disorder (principal)

== ENCOUNTER 2025-05-29 09:59 | Outpatient (AMB) | payer OTHER, SELFPAY ==
--- NOTE | 2025-05-29 10:02 | MHC.OFFVISWM ---
VS Expanded 05/29/25 10:18 BP 146/68 H Blood Pressure Location Rt brachial Blood Pressure Position Sitting Pulse 62 Pulse Source Pulse Oximeter Temp 97.4 F Temperature Source Temporal Artery Scan Pulse Oximetry 100 Oxygen Delivery Method Room Air Height 5 ft 8 in Weight 182 lb 9.6 oz BMI 27.8 Body Fat % 28.2 Body Fat Mass 51.6 Fat Free Mass 131.2 Visceral Fat Rating 17.0 Body Water % 51.6 Body Water Mass 94.2 Muscle Mass/Score 124.6 Basal Metabolic Rate/Score 1,729 Intake Visit Reasons: (OV) PO LSG 06/25/21 Conservation Officer Required: Yes Conservation Officer Services: Conservation Officer Present Conservation Officer Name: hospital cmi Allergies aspirin (Aspirin) Allergy (Mild, Verified 05/29/25 10:12) SWELLING Penicillins Allergy (Mild, Verified 05/29/25 10:12) SWELLING NSAIDS (Non-Steroidal Anti-Inflamma Allergy (Verified 05/29/25 10:12) Unknown Medication List - Last Reconciled 05/29/25 by JUAN Shirley acetaminophen (Tylenol Extra Strength) 1,000 mg (2 x 500 mg) PO Q6H PRN albuterol sulfate 90 mcg/actuation 2 inhalations inhalation Q6H PRN 30 days apixaban (Eliquis) 5 mg PO BID ascorbic acid (vitamin C) 250 mg PO QAM atorvastatin 20 mg PO BEDTIME [celebrate MVI PO DAILY] cholecalciferol (vitamin D3) 50 mcg PO DAILY utluwjaruvv-cuuewjtka-scrucsiq 100-62.5-25 mcg (Trelegy Ellipta) 1 inh inhalation DAILY 30 days folic acid 1 mg PO QAM ipratropium-albuterol 0.5 mg-3 mg(2.5 mg base)/3 mL 3 mL inhalation Q6H PRN ipratropium-albuterol 0.5 mg-3 mg(2.5 mg base)/3 mL 3 mL inhalation BID 30 days midodrine 2.5 mg PO nebulizers As directed omeprazole 20 mg PO DAILY pen needle, diabetic As directed simethicone (Gas Relief (simethicone)) 80 mg PO BID-QID PRN tiotropium bromide 1 cap inhalation DAILY trazodone 100 mg PO BEDTIME vitamin A palmitate 10,000 units PO DAILY zinc gluconate 30 mg PO DAILY HPI Comments Details: 70-year-old male who returns to the office today status post sleeve gastrectomy performed 06/25/[address] Park. His approximately 3 years 11 months postoperatively. Weight today is 182.6 lb with a BMI of 27.8. He was seen in the emergency department mid March with complaints of abdominal pain around the area of his previous umbilical hernia surgery. There was no leukocytosis or abnormal liver function tests although CT scan did show layering small cholelithiasis. He was seen in the emergency room on 04/12/25 for back pain radiating to the abdomen. Again diagnostic imaging significant for cholelithiasis. Given the multiple occurrences, recommendation is for laparoscopic cholecystectomy. Since being seen in the emergency room a proximally 6 weeks ago. He denies any further abdominal pain or back pain. We discussed the etiology of gallstones, offered laparoscopic cholecystectomy which he would like to schedule. He is using ensure max, 5 am, 9 am, 1 pm. His daughter states he has been doing 3 whole shakes but will follow the plans that we have given him He is having small portions of rice, he is eating fish and shrimp. At his last visit in the office, he was given a new meal plan: Utilizing premier protein ready to drink shake 5-7 am 4 oz of shake mixed with 4 oz of unsweetened almond milk 9-11 am 6 oz of shake mixed with 2 oz of almond milk noon meal with 6 forks of protein and 4 forks of vegetables 1-2 pm half cup fresh berries or apple, orange, pear, kiwi 4 pm meal with 6 forks of protein and 6 forks of vegetables Exercise walking outside at day program (3 days per week) treadmill at day program 3 days per week, 80-100 calories burned [facility] Medical History Chronic restrictive lung disease Pulmonary nodules COVID-19 vaccine series completed Arthritis Asthma Vitamin D deficiency HLD (hyperlipidemia) T2DM (type 2 diabetes mellitus) Anxiety Depression Venous insufficiency Hypertension COPD (chronic obstructive pulmonary disease) Surgical History History of repair of hiatal hernia Status post laparoscopic sleeve gastrectomy History of esophagogastroduodenoscopy (EGD) History of umbilical hernia repair H/O colonoscopy with polypectomy Family History Father CVD (cardiovascular disease) Heart disease Mother Heart disease CVD (cardiovascular disease) Brother Cancer Brother Cancer Brother Heart attack Sister CVD (cardiovascular disease) Diabetes mellitus Hypertension Arthritis Social History Are you a primary care support representative to a significant other at home: No Do you presently have visiting nurse or other home services: Yes ([employer]-daughter) Alcohol intake: current Alcohol intake frequency: holidays/special occasions only Comment: no facial grimacing, medicated in pacu numerous times, pain scale explained Patient Tobacco Use Status: Former Tobacco user Tobacco use type: Cigarette Advance Directives Date on File: 06/27/21 service: No Current occupational status: unemployed Physical Exam Const General: healthy appearing and no acute distress Resp Effort & Inspection: normal respiratory effort Auscultation: clear to auscultation bilaterally Cardio Rate: regular rate Rhythm: regular rhythm GI Auscultation: normal bowel sounds Extrem General: Yes normal to inspection Assessment & Plan Assessment & Plan (1) Cholelithiasis: Code(s): K80.20 - Calculus of gallbladder without cholecystitis without obstruction Category: Medical Plan: Given patient's symptomatic cholelithiasis and several visits to the emergency room, recommendation is for laparoscopic cholecystectomy. Patient is in agreement with scheduling this. We will have him follow-up for a preop appointment as well as preop lab testing. His Eliquis will need to be held. All questions were answered to patient and patient's daughter satisfaction who accompanied him to today's visit (2) Status post laparoscopic sleeve gastrectomy: Code(s): Z98.84 - Bariatric surgery status Category: Surgical Plan: Patient was encouraged to follow the meal plan as given. We will amend it slightly to account for ease: Utilizing ensure max ready to drink shake 5-7 am 6 oz of shake mixed with 4 oz of unsweetened almond milk 9-11 am 6 oz of shake mixed with 2 oz of almond milk noon meal with 6 forks of protein and 4 forks of vegetables 1-2 pm half cup fresh berries or apple, orange, pear, kiwi 4 pm meal with 6 forks of protein and 6 forks of vegetables Encouraged to track calories when he is using the treadmill at his day program. Encouraged to use the treadmill 6 days per week.
[2025-05-29 10:18] VITALS: BP 146/68; PULSE 62; TEMP 36.3; O2SAT 100; BMI 27.8
--- OUTSIDE RECORDS SUMMARY | 2025-05-29 10:52 | XMS_ITS | Data Portability ---
Author Organization [employer], [facility] Address [address] [place] [address] Care Team Providers Care Project Management Intern Name Role Phone HIM [facility] OTHER [facility] Primary Care Provider Assessment Encounter Date Assessment Date Assessment LastModified by Organization Details LastModified Time 01/19/2025 01/19/2025 I provided real -time medical direction via phone for this encounter and was available for additional phone-based assistance as needed. I have reviewed and agree with the Assessment and Plan as documented by the Manager Perioperative. Patient given the opportunity to ask questions. Our service contacted for an assessment of: elevated BG As per above, patient with elevated BG and went to see his doctor today to obtain blood work to see what medications he can be started on. He is eating and drinking normally. No polyuria, polydipsia or polyphagia. No unusual weight loss. Per rougher helper on the scene, VSS, BG 157 Impression: [...] Assessment and Plan as documented by the Manager Perioperative. We discussed the diagnostic uncertainty of home [...] call 911- verbalized understanding of instructions vis science interpreter [email or web address] Not available 01/23/2025 18:01:10 Plan of Treatment Reminders Order Date Submit Date Provider Last Modified By Organization Details Last Modified Time Details Appointments None recorded. Lab glucose, fingerstick , blood 2024 025 [email or web address] 0 [facility], [address] [place] [address], [phone] 17:26:47 urinalysis, dipstick [address], [phone] 09:16:17 glucose, fingerstick , blood [address], [phone] 19:19:25 Referral None recorded. Procedures None recorded. Surgeries None recorded. Imaging None recorded. Medication Orders acetaminoph en 500 mg tablet 2024 025 [email or web address] 0 [id number], [address], [place], [phone], 17:34:06 Patient TargetsNo targets recorded. Patient InstructionsNo instructions recorded. Reason for Referral None Reported. Results Created Date Observation Date Name Description Value Unit Range Abnormal Flag Note LastModifiedBy Organization Detail LastModifiedTime 01/20/2001/19/2025 brown dorantes se, blood Blood Glucose: mg/dl 157 Not Available [address], [phone] 01/19/2025 17:07:38 01/24/2001/23/2025 brown dorantes setic k, blood Blood Glucose: mg/dl 118 Not Available [facility] [address] [place] [address], [place], [address] 01/23/2025 17:26:29 Result Notes None recorded. Medical Equipment None Reported. Allergies Allergen ID Allergen Name Allergen Category Reaction Reaction Severity Criticality Documentation Date Start Date Code Code System Note Provider Name and Address Organization Details Recorded Time 82955 aspirin medicatio n Not available Not available Not available 01/17/2025 1191 RxNorm Not Available [facility] - production 16:33:47 70500 Product containin g penicilli n (product) medicatio n Not available Not available Not available 01/17/2025 25847 8001 SNOMED Not Available [facility] - production 16:33:47 55089 Non-stero idal anti-infl ammatory agent (product) medicatio n Not available Not available Not available 01/17/2025 09349 005 SNOMED Not Available [facility] - production [...] Updated DateTime 5 99 % 99 % 68165.4 8 g 177.8 cm 67 /min 16 /min 155/74 mm[Hg] Not Available [employer] 16:59:59 Date Recorded Body weight Body mass index (BMI) Provider Name and Address Organization Details Last Updated DateTime 01/23/2025 75459.55 g 27.3 kg/m2 Kerrie Kerr MD [address] [place] [address],[address] [facility] [place], [place], [phone], [place] [employer] 01/23/2025 17:55:55 Date Recorded Respiratory rate Heart rate Body height Oxygen saturation Oxygen saturation in Arterial blood by Pulse oximetry Body temperature Systolic And Diastolic Provider Name and Address Organization Details Last Updated DateTime 5 18 /min 64 /min 177.8 cm 98 % 98 % 98.7 [degF] 146/81 mm[Hg] Not Available [employer] 5 17:24:57 Social History None recorded. Functional Status None recorded. Mental Status None recorded. Family History Nothing Reported. Medical History No medical history recorded. Past Encounters Encounter ID Performer Location Encounter Start Date Encounter Closed Date Diagnosis/Indication Diagnosis SNOMED-CT Code Diagnosis ICD10 Code Diagnosis Note [id number] Sandra Olvera MD [facility] [address] [place] [phone] 01/19/2025 16:25:38 01/22/2025 22:06:20 Hyperglycemia 96512973 R73.9 [id number] Kerrie Kerr MD [facility] [address] [place] [id number] 01/23/2025 17:24:55 01/23/2025 19:49:59 Type 2 diabetes mellitus 58133379 E11.9 w/ mild headache- c/o urinary frequency [...] Jones Member ID Guarantor Name 01/30/2025 1 [facility] - DOS ON OR AFTER 2023 - DUAL ELIGIBLE - [employer]ISON [employer] AND ONE CARE (MEDICARE REPLACEMENT/ADV ANTAGE - HMO) Armando Gay [id number] Armando Gay Notes Date Note Type Note [...] Allergies Reviewed at 01/17/2025:33 Comments: HPI reviewed Manager Perioperative Organization Information for Waqas Wright [employer] ([email or web address]) [employer] Legal Name: [employer]. Address: [address] [place] [address], Strawberry Grower: Andrew Woo MD ROSE No.: [id number] Manager Perioperative POC Test Results from Waqas Wright Blood Glucose Measurement (17:03:58) Blood Glucose: 157 mg/dL ....................... ....................... ....................... ....................... ....................... ....................... ... Manager Perioperative Note From Waqas Wright: [facility] makes pt contact. He is standing in his doorway watching for [facility] arrival. He is generally well appearing and walks and moves w/o hinderance. No ashen or maguire color is noted, his chest rises and falls softly w/ respirations w/ no stridor or sonorous respirations present. No facial droop, one-sided weakness, or slurred speech are observed and he is not bleeding anywhere. Pt is Botswanan-speaking only and daughter is on scene for [...] Pt consents to treatment and evaluation today. [facility] obtains pt consent, vital signs are gathered, and pt is assessed. Lung sounds are clear and equal to auscultation, abdomen is soft and nontender, w/ no guarding, distension, or pulsating masses, bilateral LE's have 1+ edema. FSBS is obtained and is 157. [facility] contacts [facility] and discusses the above. [facility] recommends pt wait on results of his lab work as his physical exam and vital signs are noted life-threatening or concerning at this time. [facility] informs pt to seek emergency room care if he develops a high fever, n/v/d he can't control, bloody emesis or stools, cp, or sob. Daughter translates and pt expresses his verbal understanding. [facility] is clear. Report completed by TUNDE Wright [id number]. [facility] Lab Orders: glucose, fingerstick, blood: Performed ....................... ....................... ....................... ....................... ....................... ....................... ... [facility] Consulted: Sandra Olvera ....................... ....................... ....................... ....................... ....................... ....................... ... Disposition: Fulfilled Sandra Olvera MD [address] [place] [address],[address], [place], [phone], [employer] 01/19/2025 19:15:09 01/23/2025 text/html CRC Nurse Triage [...] - 16:07Allergies Reviewed at 01/23/2025 - 16:07Comments: Donor Support Technician verified the patient's name//address and phone number. [...] emergency treatment if needed -Alexander Mims RN Manager Perioperative Organization Information for Janice Pinedo Legal Name: [employer]. Address: [address] [place] [address], USMedical Director: Andrew LOPES No.: [id number] Manager Perioperative POC Test Results from Janice Pinedo Blood [...] - 16:07Allergies Reviewed at 01/23/2025 - 16:07Comments: Donor Support Technician verified the patient's name//address and phone number. [...] emergency treatment if needed -Alexander Mims RN Manager Perioperative Organization Information for Janice Pinedo Legal Name: [employer]. Address: [address] [place] [address], USMedical Director: Andrew LOPES No.: [id number] Manager Perioperative POC Test Results from Janice Pinedo Blood [...] ....................... ....................... ....................... ....................... ....................... ....................... ... Manager Perioperative Note From Janice Pinedo: Sent to a call for a pt complaining of high blood sugar. [facility] arrives on scene, pt is alert and oriented, airway is patent. Pt speaks Botswanan, and pt's daughter (via phone) serves as science interpreter. Pt complains of high blood sugar x [...] unremarkable; Extremities: unremarkable; Skin: pink, warm, dry; [facility] consulted and orders urine dip and Tylenol 1gm PO. Pt advised not to exceed Tylenol 3gms daily. Urine sample obtained via clean catch; Urine dip results: uploaded to [employer]; Tylenol 1gm PO administered without incident. Pt is advised to eat protein with carbs, avoid fried foods, and given food alternatives for better diabetic diet. Pt is reassured urine has no glucose or ketones. Pt is advised to follow up with PCP regarding treatment plan. Red flags discussed. Pt/family has no further questions. [facility] Lab Orders: glucose, fingerstick, blood: Performed urinalysis, dipstick: Performed [facility] Medication Orders: acetaminophen 500 mg tablet: Administered ....................... ....................... ....................... ....................... ....................... ....................... ... [facility] Consulted: Kerrie Kerr .Seema.................... ....................... ....................... ....................... ....................... ....................... ... Disposition: Fulfilled Kerrie Kerr MD [address] [place] [address],[address], [place], [phone], DARREN SALINAS 01/23/2025 19:12:43
--- OUTSIDE RECORDS SUMMARY | 2025-05-29 10:52 | XMS_ITS | Clinical Summary ---
Author Organization [facility] [employer] [facility] Facility Address [address] [address] Care Team Providers Care Line Installer Repairer Name Role Phone Unavailable Primary Care Provider [...] % PVNMA 08/21/2020 us [facility] Conversion LAB [id number] LICITED RESULTS Final Result PVNMA from Last 3 Months or Most Recently Relevant to Health Maintenance Insurance Medicaid [place] Medicare Medicaid [place] Medicare
--- OUTSIDE RECORDS SUMMARY | 2025-05-29 10:52 | XMS_ITS | Clinical Summary ---
Author Organization [facility] Address [address] [place] [address] Care Team Providers Care Process Development Manager Name Role Phone Unavailable Primary Care Provider [...] Vaccine (1 - 2023-2 5 season) 2024 Depression Screening 11/08/2024 Influenza Vaccine (#1) 2025 RSV Immunization Adult [...]
--- OUTSIDE RECORDS SUMMARY | 2025-05-29 10:52 | XMS_ITS | Clinical Summary ---
Author Organization [employer] Address [address] [place] [address] [address] [place] [address] Care Team Providers Care Credit And Collection Manager Name Role Phone Krysta Lockett FUNERAL PREARRANGEMENT COUNSELOR Primary Care Provider Allergies Active Allergy Reactions Criticality Noted Date [...] s:Chronic obstructive pulmonary disease, unspecified COPD type ([facility]) INHALE 1 PUFF TWICE DAILY. RINSE MOUTH AFTER USING. 60 each 11 01/28/20 24 Active glucose 4 g chewable tabletIndication s:Type 2 diabetes mellitus with hypoglycemia without coma, without long-term current use of insulin ([facility]) Chew 4 tablets (16 g) if needed for low blood sugar. 50 tablet 12 06/28/20 24 025 Active Diclofenac Sodium 1 % gelIndications:O ther chronic pain Apply topically to affected areas twice daily 150 g 06/28/20 24 Active Continuous Glucose Sensor (FreeStyle Iglesia 2 Sensor) miscIndications: Type 2 diabetes mellitus with hypoglycemia without coma, without long-term current use of insulin ([facility]) Apply 1 sensor every 14 days 2 each 2 06/30/20 24 Active Continuous Glucose Collar Starcher (FreeStyle Iglesia 2 [place]) deviceIndication s:Type 2 diabetes mellitus with hypoglycemia without coma, without long-term current use of insulin ([facility]) Scan sensor every 8 hours 1 each 06/30/20 24 Active folic acid (Folvite) 1 MG tabletIndication s:Stage 3a chronic kidney disease ([facility]) TAKE 1 TABLET BY MOUTH EVERY MORNING [...] per week. 1 kit 01/20/20 25 Active sildenafil (Viagra) 25 MG tabletIndication s:Erectile [...] BEDTIME 60 tablet 3 03/28/20 25 Active Trulicity 0.75 MG/0.5ML solution auto-injectorInd ications:Type 2 diabetes mellitus with hypoglycemia without coma, without long-term current use of insulin (CMS/HCC) INJECT ONE PEN (=0.75MG) SUBCUTANEOUSLY ONCE A WEEK DIRECTED 2 mL 1 04/25/20 25 Active Active Problems Problem Noted Date Diagnosed [...] no improvement -gave today to pt # [id number] of his vascular office to call and reschedule apt --I called today as well Dr Beckham's office and left my phone number for a call back from vascular -referred to cards to r/o cardiac etiology -tylenol prn x pain in legs -raise legs -continue use of pneumatic compression -alarm signs and symptoms explained Venous insufficiency 12/23/2022 Overview (12/23/2022): Followed by [facility] vascular Negative LE [...] vein thrombosis) 12/15/2022 Overview (12/23/2022): [facility] [place] [facility] [place] NSR no ischemic findings -referred today to wool washer feeder x complete eval of echocardiogram x orthopnea [...] Type Department Care Team Description 04/24/2025 Refill [facility] [place] [address] Krysta Lockett FNP Type 2 diabetes mellitus with hypoglycemia without coma, without long-term current use of insulin ([facility]) 04/12/2025 Orders Only GENERIC EXTERNAL DATA DEPARTMENT Provider, Generic External Data 03/28/2025 Telephone [facility] [place] [address] Krysta Lockett FNP stable lab letter 03/28/2025 Refill [facility] [place] [address] Krysta Lockett FNP Acute deep vein thrombosis (DVT) of other vein of lower extremity, unspecified laterality ([facility]) 03/27/2025 Telephone [facility] [place] [address] Krysta Lockett FNP ER Follow-up 03/26/2025 5:40 PM EDT Office Visit [facility] [address] Jess Manrique MD Status post bariatric surgery (Primary Dx); Stage 3 chronic kidney disease, unspecified whether stage 3a or 3b CKD ([facility]); Abdominal wall hernia; Primary hypertension 03/26/2025 Telephone [facility] [place] [address] Manju France, ESTEE WIC triage 03/26/2025 Telephone [facility] [place] [address] Krysta Lockett FNP Nurse Triage 03/07/2025 Refill [facility] [place] [address] Krysta Lockett FNP 03/06/2025 Telephone [facility] [place] [address] Krysta Lockett FNP Letter for School/Work 02/28/2025 10:15 AM EDT Office Visit [facility] [place] [address] Cathryn Tok, [facility] Type 2 diabetes mellitus with hypoglycemia without coma, without long-term current use of insulin ([facility]) (Primary Dx); Erectile dysfunction, unspecified erectile dysfunction [...] this topic Meningococcal Vaccine Aged Out No fsoter holly eligible based on patient's age to [...] PM EDT Narrative 04/12/2025 3:59 PM EDT [place] [address] Ultrasound Report Signed Patient: Armando Ba MR#: [id number] : 1955 Acct:[id number] Age/Sex: 70 / M ADM Date: 04/12/25 Loc: HO.ED Attending Dr: Ordering Physician: Thea Puckett Date of Service: 04/12/25 Procedure(s): US abdomen limited Accession Number(s): [id number] cc: [facility]; Thea Puckett EXAMINATION: US ABDOMEN LIMITED [...] Jasiel Echevarria MD 04/12/2025 03:57 PM EDT RP Dictated By: Jasiel Echevarria MD Signed By: <Electronically signed by Jasiel Echevarria MD in OV> 04/12/25 1557 DD/ 1425 TD/TT: 04/12/25 1500 Alternative Education Teacher: Procedure Note Donotuseinterpreter, Image - 04/12/2025 [place] [address] Ultrasound Report Signed Patient: Armando BaMR#: [id number] : 6Acct:[id number] Age/Sex: 70 / MADM Date: 04/12/25 Loc: HO.ED Attending Dr: Ordering Physician: Thea Puckett Date of Service: 04/12/25 Procedure(s): US abdomen limited Accession Number(s): [id number] cc: [facility]; Thea Puckett EXAMINATION: US ABDOMEN LIMITED [...] 04/12/25 1557 DD/ 1425 TD/TT: 04/12/25 1500 Alternative Education Teacher: us [facility] External Provider IMG US PROCEDURES Edited Result [...] Final Result [facility] [address] [place] [phone] * Lipase (04/12/2025 1:39 PM EDT) Lipase 15 8 - 78 U/L [facility] 04/12/2025 1:39 PM EDT 04/12/2025 1:44 PM EDT us Generic External Data Provider LAB BLOOD ORDERAB LES Final Result [facility] [address] [place], [place] [phone] * (ABNORMAL) Comprehensive Metabolic Panel (04/12/2025 [...] Kidney Disea se: Estimated GFR < 60 mL/min/1.53k1Jknqil Kidney Disease: Estimated GFR < 15 mL/min/1.73m2 [...] ORDERAB LES Final Result Performing Organization Address [facility] Co de Phone Number [facility] [address] [place] [phone] * Urinalysis w/reflex microscopic (04/12/2025 1:33 PM EDT) Color Urine Yellow [facility] Appearance Urine Clear [facility] PH 5.5 5.0 - 9.0 [facility] Glucose Urine UA Negative Negative mg/dL [facility] Urine Blood Negative Negative [facility] Specific [place] - Urine 1.015 1.005 - 1.025 [facility] Urine Protein Negative Neg-Trace mg/dL [facility] Urine Ketones Trace Negative mg/dL [facility] Nitrite Urine Negative Negative [facility] Leukocyte Esterase Urine Negative Negative [facility] 04/12/2025 1:33 PM EDT 04/12/2025 1:44 PM EDT Narrative [facility] - 04/12/2025 1:49 PM EDT [id number], Clean Catch Generic External Data Provider LAB URINE ORDERAB LES Final Result Performing Organization Address [facility] de Phone Number [facility] [address] [place] [phone] * (ABNORMAL) POCT Urinalysis (03/26/2025 5:27 [...] Expiration Date Urine 03/26/2025 5:27 PM EDT eJss Mnarique MD POINT OF CARE TEST ENTER/ED IT ORDERABLES Final Result * (ABNORMAL) Referral to Urology (03/26/2025 5:27 PM EDT) 03/26/2025 5:27 PM EDT [facility] FUNERAL PREARRANGEMENT COUNSELOR OUTPATIENT REFERRAL ORDERABLE S Final Result * Lipid Panel, Standard (03/01/2025 2:50 PM EDT) Triglycerides 57 <150 mg/dL [facility] Comment:Desirable Triglyceri de: less than [...] 190 mg/dL HDL Cholesterol 72 >40 mg/dL [facility] Comment:Desirable HDL: great er than 40 mg/dL Note: This HDL assay may give artificially low results in patients with liver disease. Blood Venous blood specimen / Unknown 03/01/2025 2:50 PM EDT 03/01/2025 3:55 PM EDT [facility] LAB BLOOD ORDERABLES Edited R esult - Final [facility] [address] [place] [address] [phone] * (ABNORMAL) POCT Glucose (02/28/2025 10:34 AM EDT) Pathologist [facility] Glucose Blood, POC 195(A) 60 - 200 mg/dL QC Media Lot # [id number] Lot# Expiration Date 101,[id number] Blood Capillary blood specimen / Unknown 02/28/2025 10:34 AM EDT [facility] FUNERAL PREARRANGEMENT COUNSELOR POINT OF CARE TEST ENTER/EDIT ORDERABLES Edited Result - Final * POCT HGB A1C (01/19/2025 4:25 PM EDT) Pathologist [facility] Hemoglobin A1C 6.0 4.0 - 6.0 % QC Media Lot # [id number] Lot# Expiration Date [id number] Blood 01/19/2025 4:25 PM EDT Kadie Salazar VICE PRESIDENT COMPLIANCE POINT OF CARE TEST ENTER/EDIT OR DERABLES Edited Result - Final * (ABNORMAL) Protein Creatinine Ratio, Urine (03/13/2024 9:57 AM EDT) Pathologist [facility] Creatinine, Urine 97.69 mg/dL [facility] Final Result [facility] [address] [place] [phone] * Hepatitis C Antibody with Reflex to HCV, RNA, Quantitative, Real-Time PCR (12/15/2022 9:44 AM EST) Hepatitis C Antibody NON-REACT SIDDHARTH NON-REACT SIDDHARTH [employer] Index <0.02 <1.00 [employer] Comment: HCV antibody was non-reactive. There is no laboratory evidence of HCV infection. In most cases, no further action is required. However, if recent HCV exposure is suspected, a test for HCV RNA (test code 86547) is suggested. For additional information please refer to http://education.[employer]faq/MVB21w6 (This link is being provided for informational/ educational purposes only.) Blood Venous blood specimen / Unknown 12/15/2022 9:44 AM EST 12/15/2022 9:45 AM EST Narrative [facility] - 12/16/2022 2:26 PM EST FASTING:UNKNOWN FASTING: UNKNOWN [facility] FUNERAL PREARRANGEMENT COUNSELOR LAB BLOOD ORDERABLES Final Re sult [facility] [address], [place] [address] [employer] [place] [employer] [address] [facility], ([address]) [place] [phone] * Hm Colonoscopy (07/18/2019 7:44 AM EDT) Historical Provider HEALTH MAINTENANCE Final Result from Last 3 Months or Most Recently Relevant to [place] [id number] [facility] ASSISTED OPTIONS (HMO D-SNP) JUAN ASHBY [id number] Care Teams Credit And Collection Manager Relationship Specialty Start Date End Date MifflinburgKrysta FNP [address] [place] [phone] PCP - General Family Medicine 10/27/22
== END 2025-05-29 10:58 | disposition home or self-care (01) ==
LOC: HO.HBS 09:59
PROVIDERS: Visit Provider Physician Assistant Surgical
DX: K80.20 Calculus of gallbladder without cholecystitis without obstruction (principal); Z98.84 Bariatric surgery status
CPT/HCPCS: 99213; G2211

== ENCOUNTER → 2025-05-29 09:59 | Outpatient (BNVA) | payer OTHER, SELFPAY | PROVIDERS: Visit Provider Physician Assistant Surgical | DX: K80.20 Calculus of gallbladder without cholecystitis without obstruction (principal); Z98.84 Bariatric surgery status | CPT/HCPCS: 99212 ==

== ENCOUNTER 2025-06-08 11:10 | Outpatient (AMB) | payer OTHER, SELFPAY ==
--- NOTE | 2025-06-08 11:13 | HO.NEPHOV_ITS ---
Vital Signs 06/08/25 11:16 Height 5 ft 8 in Weight 185 lb 2 oz BMI 28.1 BP 124/70 Blood Pressure Location Lt brachial Position Sitting Intake Visit Reasons: 4 mnts f/u Conf Oven Unloader Required: Yes Oven Unloader Language: Fagot Maker Services: Oven Unloader Offered & Declined ([facility] Oven Unloader services refused ) Accompanied by: Daughter Allergies aspirin (Aspirin) Allergy (Mild, Verified 06/08/25 11:15) SWELLING Penicillins Allergy (Mild, Verified 06/08/25 11:15) SWELLING NSAIDS (Non-Steroidal Anti-Inflamma Allergy (Verified 06/08/25 11:15) Unknown HPI Comments Details: Armando was seen in follow up of his CKD. He has H/O hypertension and was on ACEI in the past but was taken off it when he developed low blood pressures. He is a diabetic on insulin. He had high BMI and underwent gastric surgery with significant weight loss.He has H/O very mild proteinuria. He has no H/O malignancies. He denies epistaxis, photosensitivity, new skin rashes, edema, hematuria, recurrent sore throat, new bone or back pain. He is not on any SGLT2 i. He tries to avoid NSAID's and maintain good hydration. His HbA1c has been very good. He is going to have cholecystectomy on Jun [facility] Medical History Chronic restrictive lung disease Pulmonary nodules COVID-19 vaccine series completed Arthritis Asthma Vitamin D deficiency HLD (hyperlipidemia) T2DM (type 2 diabetes mellitus) Anxiety Depression Venous insufficiency Hypertension COPD (chronic obstructive pulmonary disease) Surgical History History of repair of hiatal hernia Status post laparoscopic sleeve gastrectomy History of esophagogastroduodenoscopy (EGD) History of umbilical hernia repair H/O colonoscopy with polypectomy Family History Father CVD (cardiovascular disease) Heart disease Mother Heart disease CVD (cardiovascular disease) Brother Cancer Brother Cancer Brother Heart attack Sister CVD (cardiovascular disease) Diabetes mellitus Hypertension Arthritis Social History Are you a primary nurse healthcare manager to a significant other at home: No Do you presently have visiting nurse or other home services: Yes (RETAIL ACCOUNT MANAGER-daughter) Alcohol intake: current Alcohol intake frequency: holidays/special occasions only Comment: no facial grimacing, medicated in pacu numerous times, pain scale explained Patient Tobacco Use Status: Former Tobacco user Tobacco use type: Cigarette Advance Directives Date on File: 06/27/21 service: No Current occupational status: unemployed Review of Systems Const All systems reviewed & are unremarkable except as noted in HPI and below Physical Exam Vital Signs: Last Vital Signs BP 124/70 06/08/25 11:16 BMI result Body Mass Index 28.1 Const General: comfortable and no acute distress Orientation/consciousness: patient oriented x3 HEENT Head: Yes normocephalic Mouth: Normal oral and palatal mucosa present Eyes EOM: EOMs intact bilaterally Neck Neck: Yes supple Resp Auscultation: clear to auscultation bilaterally Cardio Jugular venous distension: no JVD Rate: regular rate GI Palpation (GI): Soft to palpation Auscultation: normal bowel sounds General: Yes no CVA tenderness Back/Spine/Pelvis Back: no CVA tenderness Skin General skin exam: no rashes or lesions noted Neuro General: patient oriented x3 and moves all extremities Extrem General: Yes no pedal edema Results Reviewed Nephrology Results: Hgb, (14.0-18.0) 12.3 g/dl L 04/12/25 WBC, (4.8-10.8) 5.5 X10*3/uL 04/12/25 Plt Count, (160-400) 196 X10*3/uL 04/12/25 Sodium, (135-145) 142 mmol/L 04/12/25 Potassium, (3.3-5.1) 4.1 mmol/L 04/12/25 Chloride, (96-108) 105 mmol/L 04/12/25 Carbon Dioxide, (22-29) 30 mmol/L H 04/12/25 BUN, (9-16) 27 mg/dL H 04/12/25 Creatinine, (0.5-1.4) 1.46 mg/dL H 04/12/25 Calcium, (8.4-10.2) 9.5 mg/dL 04/12/25 Urine Protein, (Neg-Trace) Negative mg/dL 04/12/25 Renal US 03/08/24 Assessment & Plan Assessment & Plan (1) CKD (chronic kidney disease) stage 3, GFR 30-59 ml/min: Code(s): N18.30 - Chronic kidney disease, stage 3 unspecified Category: Medical Qualifiers: Chronic kidney disease stage 3 subtype: stage 3a (GFR 45-59) Qualified Code(s): N18.31 - Chronic kidney disease, stage 3a (2) Hypertension: Code(s): I10 - Essential (primary) hypertension Category: Medical Qualifiers: Hypertension type: unspecified Qualified Code(s): I10 - Essential (primary) hypertension Plan Armando has CKD 3 and his renal functions have been close to baseline He had been on ACEI in the past which was discontinued due to low BP's Work up done in the past including imaging reviewed Will do a 24 hour urine for cr cl and protein with time Will consider starting enalapril 1.25 mg at next visit if his hemodynamics/renal fn permits NO indication for renal biopsy now. No NSAID's; Good hydration Minimize PPI if he can and keep Vitamin C to 3/ week Is a great candidate for Jardiance 10 mg daily( On trulicity) Continue current dose of statins; Answered all questions Follow labs ordered & F/U appointment given Orders: Orders Electrolytes 4 Months I10 - Essential (primary) hypertension, N18.31 - Chronic kidney disease, stage 3a Creatinine 4 Months I10 - Essential (primary) hypertension, N18.31 - Chronic kidney disease, stage 3a Protein Creatinine Ratio, Ur 4 Months I10 - Essential (primary) hypertension, N18.31 - Chronic kidney disease, stage 3a Blood Urea Nitrogen 4 Months I10 - Essential (primary) hypertension, N18.31 - Chronic kidney disease, stage 3a Coding Level of Care Code Est Pt Level 4 (32996) Diagnoses Stage 3a chronic kidney disease N18.31 Chronic kidney disease stage 3 subtype: stage 3a (GFR 45-59) Hypertension, unspecified type I10 Hypertension type: unspecified
[2025-06-08 11:16] VITALS: BP 124/70; BMI 28.1
--- OUTSIDE RECORDS SUMMARY | 2025-06-08 11:18 | XMS_ITS | Clinical Summary ---
Author Organization [facility] Facility Address [address] [address] Care Team Providers Care Technician Name Role Phone Unavailable Primary Care Provider [...] % PVNMA 08/21/2020 us [facility] Conversion LAB [id number] LICITED RESULTS Final Result PVNMA from Last 3 Months or Most Recently Relevant to Health Maintenance Insurance Medicaid [place] Medicare Medicaid [place] Medicare
--- OUTSIDE RECORDS SUMMARY | 2025-06-08 11:18 | XMS_ITS | Clinical Summary ---
Author Organization [facility] ity Address [address] [place] [address] Care Team Providers Care Section Gang Name Role Phone Unavailable Primary Care Provider [...]
--- OUTSIDE RECORDS SUMMARY | 2025-06-08 11:18 | XMS_ITS | Clinical Summary ---
Author Organization [employer] Address [address] [place] [address] 7[address] [place] [address] Care Team Providers Care Solar Electric Practitioner Name Role Phone Krysta Lockett PAGE TECHNICIAN Primary Care Provider [phone] Allergies Active Allergy Reactions Criticality Noted Date [...] s:Chronic obstructive pulmonary disease, unspecified COPD type ([facility]) INHALE 1 PUFF TWICE DAILY. RINSE MOUTH AFTER USING. 60 each 11 01/28/20 24 Active glucose 4 g chewable tabletIndication s:Type 2 diabetes mellitus with hypoglycemia without coma, without long-term current use of insulin ([facility]) Chew 4 tablets (16 g) if needed for low blood sugar. 50 tablet 12 06/28/20 24 025 Active Diclofenac Sodium 1 % gelIndications:O ther chronic pain Apply topically to affected areas twice daily 150 g 06/28/20 24 Active Continuous Glucose Sensor (FreeStyle Iglesia 2 Sensor) miscIndications: Type 2 diabetes mellitus with hypoglycemia without coma, without long-term current use of insulin ([facility]) Apply 1 sensor every 14 days 2 each 2 06/30/20 24 Active Continuous Glucose Roll Grinder Operator (FreeStyle Iglesia 2 Semora) deviceIndication s:Type 2 diabetes mellitus with hypoglycemia without coma, without long-term current use of insulin ([facility]) Scan sensor every 8 hours 1 each 06/30/20 24 Active folic acid (Folvite) 1 MG tabletIndication s:Stage 3a chronic kidney disease ([facility]) TAKE 1 TABLET BY MOUTH EVERY MORNING [...] no improvement -gave today to pt # [id number] of his vascular office to call and reschedule apt --I called today as well Dr Beckham's office and left my phone number for a call back from vascular -referred to cards to r/o cardiac etiology -tylenol prn x pain in legs -raise legs -continue use of pneumatic compression -alarm signs and symptoms explained Venous insufficiency 12/23/2022 Overview (12/23/2022): Followed by [facility] [place] Negative LE ultrasound 11/2022 Assessment & [...] vein thrombosis) 12/15/2022 Overview (12/23/2022): Followed by [facility] [place]. 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 Started on [...] NSR no ischemic findings -referred today to neurosurgeon x complete eval of echocardiogram x orthopnea [...] Type Department Care Team Description 04/24/[address] [address] Krysta Lockett FNP Type 2 diabetes mellitus with hypoglycemia without coma, without long-term current use of insulin ([facility]) 04/12/2025 Orders Only GENERIC EXTERNAL DATA DEPARTMENT Provider, Generic External Data 03/28/[address] [address] Krysta Lockett FNP stable lab letter 03/28/[address] [address] Krysta Lockett [facility] Acute deep vein thrombosis (DVT) of other vein of lower extremity, unspecified laterality ([facility]) 03/27/[address] [address] Krysta Lockett [facility] ER Follow-up 03/26/2025 5:40 PM EDT Office Visit [facility] [address] [place] [phone] Jess Manrique MD Status post bariatric surgery (Primary Dx); Stage 3 chronic kidney disease, unspecified whether stage 3a or 3b CKD ([facility]); Abdominal wall hernia; Primary hypertension 03/26/2025 Telephone [facility] [address] [place] [address] [phone] Manju France, RN [facility] triage 03/26/[address] [address] CathrynKrysta duong FNP Nurse Triage from Last 3 Months [...] PM EDT Narrative 04/12/2025 3:59 PM EDT [address] [address] Ultrasound Report Signed Patient: Armando Ba MR#: [id number] : 1955 Acct:[id number] Age/Sex: 70 / M ADM Date: 04/12/25 Loc: HO.ED Attending Dr: Ordering Physician: Thea Puckett Date of Service: 04/12/25 Procedure(s): US abdomen limited Accession Number(s): [id number] cc: [facility]; Thea Puckett EXAMINATION: US ABDOMEN LIMITED CLINICAL [...] 04/12/25 1557 DD/ 1425 TD/TT: 04/12/25 1500 Tax Associate: Procedure Note Donotuseinterpreter, Image - 04/12/[address] [address] Ultrasound Report Signed Patient: Armando BaMR#: [id number] : 6Acct:[id number] Age/Sex: 70 / MADM Date: 04/12/25 Loc: HO.ED Attending Dr: Ordering Physician: Thea Puckett Date of Service: 04/12/25 Procedure(s): US abdomen limited Accession Number(s): [id number] cc: [facility]; Thea Puckett EXAMINATION: US ABDOMEN LIMITED CLINICAL [...] 04/12/25 1557 DD/ 1425 TD/TT: 04/12/25 1500 Tax Associate: us [facility] External Provider IMG US PROCEDURES Edited Result - Final * (ABNORMAL) CBC auto differential (04/12/2025 1:39 PM EDT) White Blood Count 5.5 4.8 - 10.8 X10*3/uL [facility] Red Blood Count 3.86(L) 4.60 - 5.80 X10*6/uL [facility] Hemoglobin 12.3(L) 14.0 - 18.0 g/dl [facility] Hematocrit 36.3(L) 42.0 - 52.0 % [facility] Mean Corpuscular Volume 94.0 80.0 - 98.0 fL [facility] Mean Corpuscular Hemoglobin 31.9 27.0 - 33.0 pg [facility] Mean Corpuscular HGB Conc 33.9 31.0 - 36.0 g/dl [facility] Red Cell Distribution Width 11.9 11.0 - 16.0 % [facility] Platelet Count 196 160 - 400 X10*3/uL [facility] Mean Platelet Volume 9.8 9.4 - 12.4 fL [facility] Neutrophils Percent Auto 57.9 45 - 73 % [facility] Imm Gran Pct Auto 0.4 0.0 - 0.4 % [facility] Lymphocytes Percent Auto 30.8 20 - 40 % [facility] Monocytes Percent Auto 7.3 2 - 11 % [facility] Eosinophils Percent Auto 2.9 0 - 4 % [facility] Basophils Percent Auto 0.7 0 - 2 % [facility] NRBC Pct Auto 0.0 0.0 - 0.2 /100WBC [facility] Neutrophils Absolute Auto 3.2 2.0 - 8.3 x10*3/uL [facility] Imm Gran Abs Auto 0.02 0.00 - 0.03 X10*3/uL [facility] Lymphocytes Absolute Auto 1.7 1.2 - 4.9 X10*3/uL [facility] Monocytes Absolute Auto 0.4 0.1 - 1.2 X10*3/uL [facility] Eosinophils Absolute Auto 0.2 0.0 - 0.4 X10*3/uL [facility] Basophils Absolute Auto 0.0 0.0 - 0.2 X10*3/uL [facility] NRBC Abs Auto 0.000 0.0 - 0.012 X10*3/uL [facility] 04/12/2025 1:39 PM EDT 04/12/2025 1:44 PM EDT us Generic External Data Provider LAB BLOOD ORDERAB LES Final Result Performing Organization Address City/[facility]/ZIP Co de Phone Number [facility] [address] [place] [address] [phone] * Lipase (04/12/2025 1:39 PM EDT) Lipase 15 8 - 78 U/L [facility] 04/12/2025 1:39 PM EDT 04/12/2025 1:44 PM EDT Generic External Data Provider LAB BLOOD ORDERAB LES Final Result Performing Organization Address [facility] de Phone Number [facility] [address] [place] [address] [phone] * (ABNORMAL) Comprehensive Metabolic Panel (04/12/2025 1:39 PM EDT) Sodium 142 135 - 145 mmol/L [facility] Potassium 4.1 3.3 - 5.1 mmol/L [facility] Chloride 105 96 - 108 mmol/L [facility] Carbon Dioxide 30(H) 22 - 29 mmol/L [facility] Anion Gap 11(L) 12 - 20 [facility] Urea Nitrogen (BUN) 27(H) 9 - 16 mg/dL [facility] Creatinine, Serum 1.46(H) 0.5 - 1.4 mg/dL [facility] Creatinine Clr Calc Pharmacy 44.8 [facility] Comment:eGFR (calculated fro m the MDRD study equation) and eCrCl(calculated from the Cockcroft-Gault equation) are based ondifferent parameters and may not yield comparable results.If eCrCl result is absurd, please check patient'sheight/weight. Estimated Glomerular Filt Rate 48 [facility] Comment:Chronic Kidney Disea se: Estimated GFR < 60 mL/min/1.70j4Payvmj Kidney Disease: Estimated GFR < 15 mL/min/1.73m2 Glucose 88 60 - 115 mg/dL [facility] Calcium 9.5 8.4 - 10.2 mg/dL [facility] Bilirubin, Total 0.8 0.0 - 1.0 mg/dL [facility] Aspartate Amino Transferase 106(H) 5 - 37 U/L [facility] Alanine Aminotransferase 29 0 - 40 U/L [facility] Total Protein 6.5 6.5 - 8.0 g/dL [facility] Albumin Level 3.7 3.5 - 5.0 g/dL [facility] Alkaline Phosphatase 99 39 - 117 U/L [facility] 04/12/2025 1:39 PM EDT 04/12/2025 1:44 PM EDT us Generic External Data Provider LAB BLOOD ORDERAB LES Final Result Performing Organization Address [facility] Co de Phone Number [facility] [address] [place] [phone] * Urinalysis w/reflex microscopic (04/12/2025 1:33 PM EDT) Color Urine Yellow [facility] Appearance Urine Clear [facility] PH 5.5 5.0 - 9.0 [facility] Glucose Urine UA Negative Negative mg/dL [facility] Urine Blood Negative Negative [facility] Specific [place] - Urine 1.015 1.005 - 1.025 [facility] Urine Protein Negative Neg-Trace mg/dL [facility] Urine Ketones Trace Negative mg/dL [facility] Nitrite Urine Negative Negative [facility] Leukocyte Esterase Urine Negative Negative [facility] 04/12/2025 1:33 PM EDT 04/12/2025 1:44 PM EDT Narrative [facility] - 04/12/2025 1:49 PM EDT [id number], Clean Catch us Generic External Data Provider LAB URINE ORDERAB LES Final Result Performing Organization Address City/[facility]/ZIP Co de Phone Number [facility] [address] [place] [address] [phone] * (ABNORMAL) POCT Urinalysis (03/26/2025 5:27 [...] 5:27 PM EDT) 03/26/2025 5:27 PM EDT [facility] OUTPATIENT REFERRAL ORDERABLE S Final Result * Lipid Panel, Standard (03/01/2025 2:50 PM EDT) Triglycerides 57 <150 mg/dL [facility] Comment:Desirable Triglyceri de: less than 150 mg/dLBorderline High Triglyceride 150-199 mg/dLHigh Triglyceride: 200-499 mg/dLVery High Triglyceride: greater than or equal to 5OO mg/dL Cholesterol 177 <200 mg/dL [facility] Comment:Desirable Cholestero l: less than 200 mg/dLBorderline High Cholesterol: 200-239 mg/dLHigh Cholesterol: greater than 239 mg/dL LDL Cholesterol Calculated 94 <100 mg/dL [facility] Comment:Desirable LDL: less than 100 mg/dLNear Optimal/Above Optimal LDL: 110- 129 mg/dLBorderline High LDL: 130-159 mg/dLHigh LDL: 160-189 mg/dLVery High LDL: greater than or equal to 190 mg/dL HDL Cholesterol 72 >40 mg/dL [facility] Comment:Desirable HDL: great er than 40 mg/dL Note: This HDL assay may give artificially low results in patients with liver disease. Blood Venous blood specimen / Unknown 03/01/2025 2:50 PM EDT 03/01/2025 3:55 PM EDT [facility] PAGE TECHNICIAN LAB BLOOD ORDERABLES Edited R esult - Final Performing Organization Address [facility]/ZIP Co de Phone Number [facility] [address] [place] [phone] * POCT HGB A1C (01/19/2025 4:25 PM EDT) Hemoglobin A1C 6.0 4.0 - 6.0 % QC Media Lot # [id number] Lot# Expiration Date Blood 01/19/2025 4:25 PM EDT Kadie Salazar GAS MANAGER POINT OF CARE TEST ENTER/EDIT OR DERABLES Edited Result - Final * (ABNORMAL) Protein Creatinine Ratio, Urine (03/13/2024 9:57 AM EDT) Creatinine, Urine 97.69 mg/dL [facility] Protein, Total, Random Urine 14(H) <12 mg/dL [facility] Protein/Creatin ine Ratio, Ur 0.14 <0.2 [facility] Comment:The spot urine prote in:creatinine ratio may increase to 0.3during normal . 03/13/2024 9:57 AM EDT 03/13/2024 11:31 AM EDT Generic External Data Provider LAB URINE ORDERAB LES Final Result Performing Organization Address [facility]/ZIP Co de Phone Number [facility] [address] [place] [address] [phone] * Hepatitis C Antibody with Reflex to HCV, RNA, Quantitative, Real-Time PCR (12/15/2022 9:44 AM EST) Hepatitis C Antibody NON-REACT SIDDHARTH NON-REACT SIDDHARTH [employer] Index <0.02 <1.00 [employer] Comment: HCV antibody was non-reactive. There is no laboratory evidence of HCV infection. In most cases, no further action is required. However, if recent HCV exposure is suspected, a test for HCV RNA (test code 19353) is suggested. For additional information please refer to http://education.Purch/faq/ONH93o4 (This link is being provided for informational/ educational purposes only.) Blood Venous blood specimen / Unknown 12/15/2022 9:44 AM EST 12/15/2022 9:45 AM EST Narrative [facility] - 12/16/2022 2:26 PM EST FASTING:UNKNOWN FASTING: UNKNOWN [facility] PAGE TECHNICIAN LAB BLOOD ORDERABLES Final Re sult [facility] [address], [facility], [place] [address] [employer] [address], ([address]) [place] [address] * Hm Colonoscopy (07/18/2019 7:44 AM EDT) Historical Provider HEALTH MAINTENANCE Final Result from Last 3 Months or Most Recently Relevant to Health [place] [id number] [facility] CARE HOME OPTIONS (O D-SNP) JUAN ASHBY [id number] Care Teams Solar Electric Practitioner Relationship Specialty Start Date End Date Krysta Lockett FNP [address] [place] [phone] PCP - General Family Medicine 10/27/22
== END 2025-06-08 11:47 | disposition home or self-care (01) ==
LOC: HO.HKA 11:11
PROVIDERS: PCP Registered Nurse; Visit Provider Internal Medicine Nephrology
DX: N18.31 Chronic kidney disease, stage 3a (principal); I10 Essential (primary) hypertension
CPT/HCPCS: 99214

== ENCOUNTER → 2025-06-08 11:10 | Outpatient (BNVA) | payer OTHER, SELFPAY | PROVIDERS: PCP Registered Nurse; Visit Provider Internal Medicine Nephrology | DX: N18.31 Chronic kidney disease, stage 3a (principal); I10 Essential (primary) hypertension | CPT/HCPCS: 99212 ==

== ENCOUNTER 2025-06-13 09:45 | Outpatient (AMB) | payer OTHER, SELFPAY ==
--- NOTE | 2025-06-13 09:46 | A.OFFVIS_ITS ---
VS Expanded 06/13/25 09:56 BP 164/74 H Blood Pressure Location Rt brachial Blood Pressure Position Sitting Pulse 73 Pulse Source Pulse Oximeter Temp 97.4 F Temperature Source Temporal Artery Scan Pulse Oximetry 100 Oxygen Delivery Method Room Air Height 5 ft 8 in Weight 182 lb 12.8 oz BMI 27.8 Body Fat % 22.9 Body Fat Mass 41.8 Fat Free Mass 140.8 Visceral Fat Rating 14.0 Body Water % 54.3 Body Water Mass 99.2 Muscle Mass/Score 133.8 Basal Metabolic Rate/Score 1,839 Intake Visit Reasons: OV Preop Lap Akila 06/19/25 Allergies aspirin (Aspirin) Allergy (Mild, Verified 06/13/25 12:58) SWELLING Penicillins Allergy (Mild, Verified 06/13/25 12:58) SWELLING NSAIDS (Non-Steroidal Anti-Inflamma Allergy (Verified 06/13/25 12:58) Unknown Medication List - Last Reconciled 06/13/25 by Lennox Solares MD acetaminophen (Tylenol Extra Strength) 1,000 mg (2 x 500 mg) PO Q6H PRN albuterol sulfate 90 mcg/actuation 2 inhalations inhalation Q6H PRN 30 days apixaban (Eliquis) 5 mg PO BID ascorbic acid (vitamin C) 250 mg PO QAM atorvastatin 20 mg PO BEDTIME [celebrate MVI PO DAILY] cholecalciferol (vitamin D3) 50 mcg PO DAILY yldltkkfsyc-lxjwripol-anpauqwu 100-62.5-25 mcg (Trelegy Ellipta) 1 inh inhalation DAILY 30 days folic acid 1 mg PO QAM fondaparinux 2.5 mg (0.5 mL) subcut Q24H ipratropium-albuterol 0.5 mg-3 mg(2.5 mg base)/3 mL 3 mL inhalation Q6H PRN ipratropium-albuterol 0.5 mg-3 mg(2.5 mg base)/3 mL 3 mL inhalation BID 30 days midodrine 2.5 mg PO nebulizers As directed omeprazole 20 mg PO DAILY ondansetron 4 mg PO Q12H pen needle, diabetic As directed simethicone (Gas Relief (simethicone)) 80 mg PO BID-QID PRN tiotropium bromide 1 cap inhalation DAILY trazodone 100 mg PO BEDTIME vitamin A palmitate 10,000 units PO DAILY zinc gluconate 30 mg PO DAILY HPI Comments Details: Patient has symptomatic cholelithiasis. Recent abdominal US, CT abd pelvis and CT chest were reviewed. Also I reviewed recent EKG, last nuclear stress test and Holter. [facility] Medical History (Updated 06/13/25 @ 13:04 by Lennox Solares MD) Anticoagulation overlap therapy not prescribed at discharge Chronic restrictive lung disease Pulmonary nodules COVID-19 vaccine series completed Arthritis Asthma Vitamin D deficiency HLD (hyperlipidemia) T2DM (type 2 diabetes mellitus) Anxiety Depression Venous insufficiency Hypertension COPD (chronic obstructive pulmonary disease) Surgical History History of repair of hiatal hernia Status post laparoscopic sleeve gastrectomy History of esophagogastroduodenoscopy (EGD) History of umbilical hernia repair H/O colonoscopy with polypectomy Family History Father CVD (cardiovascular disease) Heart disease Mother Heart disease CVD (cardiovascular disease) Brother Cancer Brother Cancer Brother Heart attack Sister CVD (cardiovascular disease) Diabetes mellitus Hypertension Arthritis Social History Are you a primary home health care coordinator to a significant other at home: No Do you presently have visiting nurse or other home services: Yes (ASSISTANT PROFESSOR OF 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-daughter) Alcohol intake: current Alcohol intake frequency: holidays/special occasions only Comment: no facial grimacing, medicated in pacu numerous times, pain scale explained Patient Tobacco Use Status: Former Tobacco user Tobacco use type: Cigarette Advance Directives Date on File: 06/27/21 service: No Current occupational status: unemployed Physical Exam Vital Signs: Last Vital Signs Temp 97.4 F 06/13/25 09:56 Pulse 73 06/13/25 09:56 BP 164/74 H 06/13/25 09:56 Pulse Ox 100 06/13/25 09:56 Oxygen Delivery Method Room Air 06/13/25 09:56 BMI result Body Mass Index 27.8 GI Inspection: Yes normal to inspection and Yes incision (well healed) Palpation (GI): Soft to palpation (no tenderness) Assessment & Plan Assessment & Plan (1) Cholelithiasis with acute cholecystitis: Code(s): K80.00 - Calculus of gallbladder with acute cholecystitis without obstruction Category: Medical Qualifiers: Biliary obstruction: without biliary obstruction Qualified Code(s): K80.00 - Calculus of gallbladder with acute cholecystitis without obstruction Plan: 1. The patient was not aware of having a cholelithiasis. Now it appears symptomatic as she has right upper quadrant pain. We also discussed that bariatric surgery may accelerate the onset of symptoms of cholelithiasis and that is why elective cholecystectomy in indicated and recommended. We discussed in detail the potential complications and their management including bleeding, bile leak, pancreatitis and major bile duct injury. We also discussed the need o f postoperative use of injectable anticoagulation to prevent VTE. 2. Needs to stop the Eliquis tomorrow and start one Fondaparinux injection per day, daily until his surgery on 06/19/25. Last Fondaprinux injeciton before surgery should be on 06/18/25. He should not use the Fondaparinux the day of surgery. I will provide to him directions after surgery how to restart the Fondaparinux and the Eliquis Patient is in agreement with the plan Medications: New fondaparinux 2.5 mg (0.5 mL) subcut Q24H 5 mL 0RF Z78.9 - Other specified health status ondansetron 4 mg PO Q12H 20 tabs 0RF nausea and vomiting R11.0 - Nausea
[2025-06-13 09:56] VITALS: BP 164/74; PULSE 73; TEMP 36.3; O2SAT 100; BMI 27.8
--- OUTSIDE RECORDS SUMMARY | 2025-06-13 10:10 | XMS_ITS | Clinical Summary ---
Author Organization [facility] [employer] [facility] Facility Address [address] [address] Care Team Providers Care Production Utility Worker Name Role Phone Unavailable Primary Care Provider [...] % PVNMA 08/21/2020 us [facility] [id number] LICITED RESULTS Final Result PVNMA from Last 3 Months or Most Recently Relevant to Health Maintenance Insurance [place]
--- OUTSIDE RECORDS SUMMARY | 2025-06-13 10:10 | XMS_ITS | Clinical Summary ---
Author Organization [employer] [facility] ity Address [address] [place] [address] Care Team Providers Care Data Management Consultant Name Role Phone Unavailable Primary Care Provider [...]
--- OUTSIDE RECORDS SUMMARY | 2025-06-13 10:10 | XMS_ITS | Clinical Summary ---
Author Organization [employer] Address [address] [place] [address] [address] [place] [address] Care Team Providers Care Bean Dumper Name Role Phone Krysta Lockett ELECTRONIC DRAFTER Primary Care Provider [phone] Allergies Active Allergy Reactions Criticality Noted Date [...] s:Chronic obstructive pulmonary disease, unspecified COPD type ([facility]) INHALE 1 PUFF TWICE DAILY. RINSE MOUTH AFTER USING. 60 each 11 01/28/20 24 Active glucose 4 g chewable tabletIndication s:Type 2 diabetes mellitus with hypoglycemia without coma, without long-term current use of insulin [place] Chew 4 tablets (16 g) if needed for low blood sugar. 50 tablet 12 06/28/20 24 025 Active Diclofenac Sodium 1 % gelIndications:O ther chronic pain Apply topically to affected areas twice daily 150 g 06/28/20 24 Active Continuous Glucose Sensor (FreeStyle Iglesia 2 Sensor) miscIndications: Type 2 diabetes mellitus with hypoglycemia without coma, without long-term current use of insulin ([facility] Apply 1 sensor every 14 days 2 each 2 06/30/20 24 Active Continuous Glucose Logistics Planner (FreeStyle Iglesia 2 [place]) deviceIndication s:Type 2 diabetes mellitus with hypoglycemia without coma, without long-term current use of insulin ([facility] Scan sensor every 8 hours 1 each 06/30/20 24 Active folic acid (Folvite) 1 MG tabletIndication s:Stage 3a chronic kidney disease ([facility] TAKE 1 TABLET BY [...] no improvement -gave today to pt # [phone] of his vascular office to call and reschedule apt --I called today as well Dr Beckham's office and left my phone number for a call back from vascular -referred to cards to r/o cardiac etiology -tylenol prn x pain in legs -raise legs -continue use of pneumatic compression -alarm signs and symptoms explained Venous insufficiency 12/23/2022 Overview (12/23/2022): Followed by [facility] vascular Negative LE ultrasound 11/2022 Assessment & [...] vein thrombosis) 12/15/2022 Overview (12/23/2022): Followed by [facility] Dr. 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 Started on [...] NSR no ischemic findings -referred today to stone splitter x complete eval of echocardiogram x orthopnea [...] Type Department Care Team Description 04/24/[address] [address] Krysta Lockett FNP Type 2 diabetes mellitus with hypoglycemia without coma, without long-term current use of insulin ([facility]) 04/12/2025 Orders Only GENERIC EXTERNAL DATA DEPARTMENT Provider, Generic External Data 03/28/[address] [address] Krysta Lockett FNP stable lab letter 03/28/[address] [address] Krysta Lockett [facility] Acute deep vein thrombosis (DVT) of other vein of lower extremity, unspecified laterality ([facility]) 03/27/[address] [address] Krysta Lockett [facility] ER Follow-up 03/26/2025 5:40 PM EDT Office Visit [facility] [address] [place] [phone] Jess Manrique MD Status post bariatric surgery (Primary Dx); Stage 3 chronic kidney disease, unspecified whether stage 3a or 3b CKD ([facility]); Abdominal wall hernia; Primary hypertension 03/26/2025 Telephone [facility] [address] [place] [address] [phone] Manju France, RN W[facility] triage 03/26/[address] [address] CathrynKrysta duong FNP Nurse Triage from Last [...] PM EDT Narrative 04/12/2025 3:59 PM EDT [address] [address] Ultrasound Report Signed Patient: Armando Ba MR#: [id number] : 1955 Acct:[id number] Age/Sex: 70 / M ADM Date: 04/12/25 Loc: HO.ED Attending Dr: Ordering Physician: Thea Puckett Date of Service: 04/12/25 Procedure(s): US abdomen limited Accession Number(s): [id number] cc: [facility]; Thea Puckett EXAMINATION: US ABDOMEN [...] 04/12/25 1557 DD/ 1425 TD/TT: 04/12/25 1500 Ice Delivery Driver: Procedure Note Donotuseinterpreter, Image - 04/12/[address] [address] Ultrasound Report Signed Patient: Armando BaMR#: [id number] : 6Acct:[id number] Age/Sex: 70 / MADM Date: 04/12/25 Loc: HO.ED Attending Dr: Ordering Physician: Thea Puckett Date of Service: 04/12/25 Procedure(s): US abdomen limited Accession Number(s): [id number] cc: [facility]; Thea Puckett EXAMINATION: US ABDOMEN [...] 04/12/25 1557 DD/ 1425 TD/TT: 04/12/25 1500 Ice Delivery Driver: us [facility] External Provider IMG US PROCEDURES Edited Result - Final * (ABNORMAL) CBC auto differential (04/12/2025 1:39 PM EDT) White Blood Count 5.5 4.8 - 10.8 X10*3/uL [facility] Red Blood Count 3.86(L) 4.60 - 5.80 X10*6/uL [facility] Hemoglobin 12.3(L) 14.0 - 18.0 g/dl [facility] Hematocrit 36.3(L) 42.0 - 52.0 % [facility] Mean Corpuscular Volume 94.0 80.0 - 98.0 fL [facility] Mean Corpuscular Hemoglobin 31.9 27.0 - 33.0 pg [facility] Mean Corpuscular HGB Conc 33.9 31.0 - 36.0 g/dl [facility] Red Cell Distribution Width 11.9 11.0 - 16.0 % [facility] Platelet Count 196 160 - 400 X10*3/uL [facility] Mean Platelet Volume 9.8 9.4 - 12.4 fL [facility] Neutrophils Percent Auto 57.9 45 - 73 % [facility] Imm Gran Pct Auto 0.4 0.0 - 0.4 % [facility] Lymphocytes Percent Auto 30.8 20 - 40 % [facility] Monocytes Percent Auto 7.3 2 - 11 % [facility] Eosinophils Percent Auto 2.9 0 - 4 % [facility] Basophils Percent Auto 0.7 0 - 2 % [facility] NRBC Pct Auto 0.0 0.0 - 0.2 /100WBC [facility] Neutrophils Absolute Auto 3.2 2.0 - 8.3 x10*3/uL [facility] Imm Gran Abs Auto 0.02 0.00 - 0.03 X10*3/uL [facility] Lymphocytes Absolute Auto 1.7 1.2 - 4.9 X10*3/uL [facility] Monocytes Absolute Auto 0.4 0.1 - 1.2 X10*3/uL [facility] Eosinophils Absolute Auto 0.2 0.0 - 0.4 X10*3/uL [facility] Basophils Absolute Auto 0.0 0.0 - 0.2 X10*3/uL [facility] NRBC Abs Auto 0.000 0.0 - 0.012 X10*3/uL [facility] 04/12/2025 1:39 PM EDT 04/12/2025 1:44 PM EDT us Generic External Data Provider LAB BLOOD ORDERAB LES Final Result Performing Organization Address City/[facility]/ZIP Co de Phone Number [facility] [address] [place] [address] [phone] * Lipase (04/12/2025 1:39 PM EDT) Lipase 15 8 - 78 U/L [facility] 04/12/2025 1:39 PM EDT 04/12/2025 1:44 PM EDT Generic External Data Provider LAB BLOOD ORDERAB LES Final Result Performing Organization Address [facility] de Phone Number [facility] [address] [place] [address] [phone] * (ABNORMAL) Comprehensive Metabolic Panel (04/12/2025 1:39 PM EDT) Sodium 142 135 - 145 mmol/L [facility] Potassium 4.1 3.3 - 5.1 mmol/L [facility] Chloride 105 96 - 108 mmol/L [facility] Carbon Dioxide 30(H) 22 - 29 mmol/L [facility] Anion Gap 11(L) 12 - 20 [facility] Urea Nitrogen (BUN) 27(H) 9 - 16 mg/dL [facility] Creatinine, Serum 1.46(H) 0.5 - 1.4 mg/dL [facility] Creatinine Clr Calc Pharmacy 44.8 [facility] Comment:eGFR (calculated fro m the MDRD study equation) and eCrCl(calculated from the Cockcroft-Gault equation) are based ondifferent parameters and may not yield comparable results.If eCrCl result is absurd, please check patient'sheight/weight. Estimated Glomerular Filt Rate 48 [facility] Comment:Chronic Kidney Disea se: Estimated GFR < 60 mL/min/[id number] Kidney Disease: Estimated GFR < 15 mL/min/1.73m2 Glucose 88 60 - 115 mg/dL [facility] Calcium 9.5 8.4 - 10.2 mg/dL [facility] Bilirubin, Total 0.8 0.0 - 1.0 mg/dL [facility] Aspartate Amino Transferase 106(H) 5 - 37 U/L [facility] Alanine Aminotransferase 29 0 - 40 U/L [facility] Total Protein 6.5 6.5 - 8.0 g/dL [facility] Albumin Level 3.7 3.5 - 5.0 g/dL [facility] Alkaline Phosphatase 99 39 - 117 U/L [facility] 04/12/2025 1:39 PM EDT 04/12/2025 1:44 PM EDT us Generic External Data Provider LAB BLOOD ORDERAB LES Final Result Performing Organization Address [facility] Co de Phone Number [facility] [address] [place] [phone] * Urinalysis w/reflex microscopic (04/12/2025 1:33 PM EDT) Color Urine Yellow [facility] Appearance Urine Clear [facility] PH 5.5 5.0 - 9.0 [facility] Glucose Urine UA Negative Negative mg/dL [facility] Urine Blood Negative Negative [facility] Specific [place] - Urine 1.015 1.005 - 1.025 [facility] Urine Protein Negative Neg-Trace mg/dL [facility] Urine Ketones Trace Negative mg/dL [facility] Nitrite Urine Negative Negative [facility] Leukocyte Esterase Urine Negative Negative [facility] 04/12/2025 1:33 PM EDT 04/12/2025 1:44 PM EDT Narrative [facility] - 04/12/2025 1:49 PM EDT [id number], Clean Catch us Generic External Data Provider LAB URINE ORDERAB LES Final Result Performing Organization Address City/[facility]/ZIP Co de Phone Number [facility] [address] [place] [address] [phone] * (ABNORMAL) POCT Urinalysis (03/26/2025 5:27 [...] 5:27 PM EDT) 03/26/2025 5:27 PM EDT [facility] OUTPATIENT REFERRAL ORDERABLE S Final Result * Lipid Panel, Standard (03/01/2025 2:50 PM EDT) Triglycerides 57 <150 mg/dL [facility] Comment:Desirable Triglyceri de: less than 150 mg/dLBorderline High Triglyceride 150-199 mg/dLHigh Triglyceride: 200-499 mg/dLVery High Triglyceride: greater than or equal to 5OO mg/dL Cholesterol 177 <200 mg/dL [facility] Comment:Desirable Cholestero l: less than 200 mg/dLBorderline High Cholesterol: 200-239 mg/dLHigh Cholesterol: greater than 239 mg/dL LDL Cholesterol Calculated 94 <100 mg/dL [facility] Comment:Desirable LDL: less than 100 mg/dLNear Optimal/Above Optimal LDL: 110- 129 mg/dLBorderline High LDL: 130-159 mg/dLHigh LDL: 160-189 mg/dLVery High LDL: greater than or equal to 190 mg/dL HDL Cholesterol 72 >40 mg/dL [facility] Comment:Desirable HDL: great er than 40 mg/dL Note: This HDL assay may give artificially low results in patients with liver disease. Blood Venous blood specimen / Unknown 03/01/2025 2:50 PM EDT 03/01/2025 3:55 PM EDT [facility] ELECTRONIC DRAFTER LAB BLOOD ORDERABLES Edited R esult - Final Performing Organization Address [facility]/ZIP Co de Phone Number [facility] [address] [place] [phone] * POCT HGB A1C (01/19/2025 4:25 PM EDT) Hemoglobin A1C 6.0 4.0 - 6.0 % QC Media Lot # [id number] Lot# Expiration Date Blood 01/19/2025 4:25 PM EDT Kadie Salazar APPLICATIONS SUPPORT ANALYST POINT OF CARE TEST ENTER/EDIT OR DERABLES Edited Result - Final * (ABNORMAL) Protein Creatinine Ratio, Urine (03/13/2024 9:57 AM EDT) Creatinine, Urine 97.69 mg/dL [facility] Protein, Total, Random Urine 14(H) <12 mg/dL [facility] Protein/Creatin ine Ratio, Ur 0.14 <0.2 [facility] Comment:The spot urine prote in:creatinine ratio may increase to 0.3during normal . 03/13/2024 9:57 AM EDT 03/13/2024 11:31 AM EDT Generic External Data Provider LAB URINE ORDERAB LES Final Result Performing Organization Address [facility]/ZIP Co de Phone Number [facility] [address] [place] [address] [phone] * Hepatitis C Antibody with Reflex to HCV, RNA, Quantitative, Real-Time PCR (12/15/2022 9:44 AM EST) Hepatitis C Antibody NON-REACT SIDDHARTH NON-REACT SIDDHARTH [facility] [employer] Index <0.02 <1.00 [facility] [employer] Comment: HCV antibody was non-reactive. There is no laboratory evidence of HCV infection. In most cases, no further action is required. However, if recent HCV exposure is suspected, a test for HCV RNA (test code 15879) is suggested. For additional information please refer to http://education.[employer]/faq/NCZ76r9 (This link is being provided for informational/ educational purposes only.) Blood Venous blood specimen / Unknown 12/15/2022 9:44 AM EST 12/15/2022 9:45 AM EST Narrative [facility] - 12/16/2022 2:26 PM EST FASTING:UNKNOWN FASTING: UNKNOWN [facility] ELECTRONIC DRAFTER LAB BLOOD ORDERABLES Final Re sult [facility] [address] [facility] [facility], [place] [address] [facility] [employer] [address] [facility], ([address]) [place] [phone] * Hm Colonoscopy (07/18/2019 7:44 AM EDT) Historical Provider HEALTH MAINTENANCE Final Result from Last 3 Months or Most Recently Relevant to Health Maintenance [place] [id number] [facility] CUSTODIAL OPTIONS (O D-SNP) JUAN ASHBY [id number] Care Teams Bean Dumper Relationship Specialty Start Date End Date Krysta Lockett FNP [address] [place] [phone] PCP - General Family Medicine 10/27/22
== END 2025-06-13 13:07 | disposition home or self-care (01) ==
LOC: HO.HBS 09:45
PROVIDERS: Visit Provider Surgery
DX: K80.00 Calculus of gallbladder with acute cholecystitis without obstruction (principal)
CPT/HCPCS: 99499

== ENCOUNTER 2025-06-19 12:05 | Day surgery (SDC) | payer OTHER, SELFPAY ==
--- OUTSIDE RECORDS SUMMARY | 2025-06-05 13:31 | XMS_ITS | Data Portability ---
Author Organization [employer] [employer] [facility] Address [address] [place] [address] Care Team Providers Care Earth Auger Operator Name Role Phone HIM [facility] OTHER [facility] Primary Care Provider Assessment Encounter Date Assessment Date Assessment LastModified by Organization Details LastModified Time 01/19/2025 01/19/2025 I provided real -time medical direction via phone for this encounter and was available for additional phone-based assistance as needed. I have reviewed and agree with the Assessment and Plan as documented by the Insole And Outsole Preparer. Patient given the opportunity to ask questions. Our service contacted for an assessment of: elevated BG As per above, patient with elevated BG and went to see his doctor today to obtain blood work to see what medications he can be started on. He is eating and drinking normally. No polyuria, polydipsia or polyphagia. No unusual weight loss. Per supervisor slate splitting on the scene, VSS, BG 157 Impression: [...] Assessment and Plan as documented by the Insole And Outsole Preparer. We discussed the diagnostic uncertainty of home [...] call 911- verbalized understanding of instructions vis linen controller [email or web address] Not available 01/23/2025 18:01:10 Plan of Treatment Reminders Order Date Submit Date Provider Last Modified By Organization Details Last Modified Time Details Appointments None recorded. Lab glucose, fingerstick , blood 2024 025 [email or web address] 0 [facility], [address] [place] [address], [phone] 17:26:47 urinalysis, dipstick [address], [phone] 09:16:17 glucose, fingerstick , blood [address], [phone] 19:19:25 Referral None recorded. Procedures None recorded. Surgeries None recorded. Imaging None recorded. Medication Orders acetaminoph en 500 mg tablet 2024 025 [email or web address] 0 [id number] [address], [place], [phone], 17:34:06 Patient TargetsNo targets recorded. Patient InstructionsNo instructions recorded. Reason for Referral None Reported. Results Created Date Observation Date Name Description Value Unit Range Abnormal Flag Note LastModifiedBy Organization Detail LastModifiedTime 01/20/2001/19/2025 brown dorantes se, blood Blood Glucose: mg/dl 157 Not Available [address], [phone] 01/19/2025 17:07:38 01/24/2001/23/2025 brown dorantes seloki k, blood Blood Glucose: mg/dl 118 Not Available [facility] [address] [place] [address], [phone] 01/23/2025 17:26:29 Result Notes None recorded. Medical Equipment None Reported. Allergies Allergen ID Allergen Name Allergen Category Reaction Reaction Severity Criticality Documentation Date Start Date Code Code System Note Provider Name and Address Organization Details Recorded Time 41265 aspirin medicatio n Not available Not available Not available 01/17/2025 1191 RxNorm Not Available [facility] - production 16:33:47 91438 Product containin g penicilli n (product) medicatio n Not available Not available Not available 01/17/2025 03794 8001 SNOMED Not Available [facility] - production 16:33:47 54565 Non-stero idal anti-infl ammatory agent (substanc e) medicatio n Not available Not available Not available 01/17/2025 71835 5008 SNOMED Not Available [facility] - production 16:33:47 [...] Updated DateTime 5 99 % 99 % 86183.4 8 g 177.8 cm 67 /min 16 /min 155/74 mm[Hg] Not Available [facility] 16:59:59 Date Recorded Body weight Body mass index (BMI) Provider Name and Address Organization Details Last Updated DateTime 01/23/2025 17552.55 g 27.3 kg/m2 Kerrie Kerr MD [address] [place] [address],[address] [facility], [place], [address], [place] - [employer] 01/23/2025 17:55:55 Date Recorded Respiratory rate Heart rate Body height Oxygen saturation Oxygen saturation in Arterial blood by Pulse oximetry Body temperature Systolic And Diastolic Provider Name and Address Organization Details Last Updated DateTime 5 18 /min 64 /min 177.8 cm 98 % 98 % 98.7 [degF] 146/81 mm[Hg] Not Available [employer] 17:24:57 Social History None recorded. Functional Status None recorded. Mental Status None recorded. Family History Nothing Reported. Medical History No medical history recorded. Past Encounters Encounter ID Performer Location Encounter Start Date Encounter Closed Date Diagnosis/Indication Diagnosis SNOMED-CT Code Diagnosis ICD10 Code Diagnosis Note [id number] Sandra Olvera MD [facility] [address] [place] [phone] 01/19/2025 16:25:38 01/22/2025 22:06:20 Hyperglycemia 13685968 R73.9 [id number] Kerrie Kerr MD [facility] [address] [place] [phone] 01/23/2025 17:24:55 01/23/2025 19:49:59 Type 2 diabetes mellitus 24416212 E11.9 w/ mild headache- c/o urinary frequency [...] Jones Member ID Guarantor Name 01/30/2025 1 [facility] - DOS ON OR AFTER 2023 - DUAL ELIGIBLE - PRISON OPTIONS AND ONE CARE (MEDICARE REPLACEMENT/ADV ANTAGE - HMO) Armando Gay [id number] Armando Gay
--- OUTSIDE RECORDS SUMMARY | 2025-06-05 13:31 | XMS_ITS | Clinical Summary ---
Author Organization [employer] Address [address] [place] [address] 7[address] [place] [address] Care Team Providers Care Vehicle Maintenance Technician Name Role Phone Krysta Lockett E BUSINESS MANAGER Primary Care Provider Allergies Active Allergy Reactions [...] s:Chronic obstructive pulmonary disease, unspecified COPD type ([facility]) INHALE 1 PUFF TWICE DAILY. RINSE MOUTH AFTER USING. 60 each 11 01/28/20 24 Active glucose 4 g chewable tabletIndication s:Type 2 diabetes mellitus with hypoglycemia without coma, without long-term current use of insulin ([facility] [place] [place]) Chew 4 tablets (16 g) if needed for low blood sugar. 50 tablet 12 06/28/20 24 025 Active Diclofenac Sodium 1 % gelIndications:O ther chronic pain Apply topically to affected areas twice daily 150 g 06/28/20 24 Active Continuous Glucose Sensor (FreeStyle Iglesia 2 Sensor) miscIndications: Type 2 diabetes mellitus with hypoglycemia without coma, without long-term current use of insulin ([facility] [place]) Apply 1 sensor every 14 days 2 each 2 06/30/20 24 Active Continuous Glucose Hand Expansion Envelope Maker (FreeStyle Iglesia 2 Whitman) deviceIndication s:Type 2 diabetes mellitus with hypoglycemia without coma, without long-term current use of insulin ([facility] [place] [place]) Scan sensor every 8 hours 1 each 06/30/20 24 Active folic acid (Folvite) 1 MG tabletIndication s:Stage 3a chronic kidney disease ([facility] [place] [place]) TAKE 1 TABLET BY MOUTH EVERY MORNING [...] no improvement -gave today to pt # [phone] of his vascular office to call and reschedule apt --I called today as well Dr Beckham's office and left my phone number for a call back from vascular -referred to cards to r/o cardiac etiology -tylenol prn x pain in legs -raise legs -continue use of pneumatic compression -alarm signs and symptoms explained Venous insufficiency 12/23/2022 Overview (12/23/2022): [facility] by [facility] [place] Negative LE ultrasound 11/2022 Assessment & [...] vein thrombosis) 12/15/2022 Overview (12/23/2022): Followed by [facility]. 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 Started on [...] NSR no ischemic findings -referred today to transmission tester x complete eval of echocardiogram x orthopnea [...] Type Department Care Team Description 04/24/2025 Refill [facility] [place] [address] Krysta Lockett FNP Type 2 diabetes mellitus with hypoglycemia without coma, without long-term current use of insulin ([facility]) 04/12/2025 Orders Only GENERIC EXTERNAL DATA DEPARTMENT Provider, Generic External Data 03/28/2025 Telephone [facility] [place] [address] Krysta Lockett FNP stable lab letter 03/28/2025 Refill [facility] [place] [address] Krysta Lockett FNP Acute deep vein thrombosis (DVT) of other vein of lower extremity, unspecified laterality ([facility]) 03/27/2025 Telephone [facility] [place] [address] Krysta Lockett FNP ER Follow-up 03/26/2025 5:40 PM EDT Office Visit [facility] [address] [place] [phone] Jess Manrique MD Status post bariatric surgery (Primary Dx); Stage 3 chronic kidney disease, unspecified whether stage 3a or 3b CKD ([facility]); Abdominal wall hernia; Primary hypertension 03/26/2025 Telephone [facility] [address] [place] [phone] Manju France, RN [facility] triage 03/26/[address] [address] Krytsa Lockett FNP Nurse Triage 03/07/2025 Refill [facility] [place] [place] [address] Krysta Lockett FNP 03/06/[address] [address] Krysta Lockett FNP Letter for School/Work from Last 3 Months Immunizations Immunization Administration [...] PM EDT Narrative 04/12/2025 3:59 PM EDT [address] [place] [address] Ultrasound Report Signed Patient: Armando Ba MR#: [id number] : 1955 Acct:[id number] Age/Sex: 70 / M ADM Date: 04/12/25 Loc: HO.ED Attending Dr: Ordering Physician: Thea Puckett Date of Service: 04/12/25 Procedure(s): US abdomen limited Accession Number(s): [id number] cc: [facility]; Teha Puckett EXAMINATION: US ABDOMEN LIMITED CLINICAL INFORMATION: [...] 04/12/25 1557 DD/ 1425 TD/TT: 04/12/25 1500 Stylist Assistant: Procedure Note Donotuseinterpreter, Image - 04/12/[address] [place] [address] Ultrasound Report Signed Patient: Armando BaMR#: [id number] : 6Acct:[id number] Age/Sex: 70 / MADM Date: 04/12/25 Loc: HO.ED Attending Dr: Ordering Physician: Thea Puckett Date of Service: 04/12/25 Procedure(s): US abdomen limited Accession Number(s): [id number] cc: [facility]; Thea Puckett EXAMINATION: US ABDOMEN LIMITED [...] 04/12/25 1557 DD/ 1425 TD/TT: 04/12/25 1500 Stylist Assistant: us [facility] External Provider IMG US PROCEDURES Edited Result - Final * (ABNORMAL) CBC auto differential (04/12/2025 1:39 PM EDT) White Blood Count 5.5 4.8 - 10.8 X10*3/uL [facility] Red Blood Count 3.86(L) 4.60 - 5.80 X10*6/uL [facility] Hemoglobin 12.3(L) 14.0 - 18.0 g/dl [facility] Hematocrit 36.3(L) 42.0 - 52.0 % [facility] Mean Corpuscular Volume 94.0 80.0 - 98.0 fL [facility] Mean Corpuscular Hemoglobin 31.9 27.0 - 33.0 pg [facility] Mean Corpuscular HGB Conc 33.9 31.0 - 36.0 g/dl [facility] Red Cell Distribution Width 11.9 11.0 - 16.0 % [facility] Platelet Count 196 160 - 400 X10*3/uL [facility] Mean Platelet Volume 9.8 9.4 - 12.4 fL [facility] Neutrophils Percent Auto 57.9 45 - 73 % [facility] Imm Gran Pct Auto 0.4 0.0 - 0.4 % [facility] Lymphocytes Percent Auto 30.8 20 - 40 % [facility] Monocytes Percent Auto 7.3 2 - 11 % [facility] Eosinophils Percent Auto 2.9 0 - 4 % [facility] Basophils Percent Auto 0.7 0 - 2 % [facility] NRBC Pct Auto 0.0 0.0 - 0.2 /100WBC [facility] Neutrophils Absolute Auto 3.2 2.0 - 8.3 x10*3/uL [facility] Imm Gran Abs Auto 0.02 0.00 - 0.03 X10*3/uL [facility] Lymphocytes Absolute Auto 1.7 1.2 - 4.9 X10*3/uL [facility] Monocytes Absolute Auto 0.4 0.1 - 1.2 X10*3/uL [facility] Eosinophils Absolute Auto 0.2 0.0 - 0.4 X10*3/uL [facility] Basophils Absolute Auto 0.0 0.0 - 0.2 X10*3/uL [facility] NRBC Abs Auto 0.000 0.0 - 0.012 X10*3/uL [facility] 04/12/2025 1:39 PM EDT 04/12/2025 1:44 PM EDT Generic External Data Provider LAB BLOOD ORDERAB LES Final Result Performing Organization Address City/[facility]/ZIP Co de Phone Number [facility] [address] [place] [address] [phone] * Lipase (04/12/2025 1:39 PM EDT) [facility] Lipase 15 8 - 78 U/L [facility] 04/12/2025 1:39 PM EDT 04/12/2025 1:44 PM EDT Generic External Data Provider LAB BLOOD ORDERAB LES Final Result Performing Organization Address [facility] Co de Phone Number [facility] [address] [place] [address] [phone] * (ABNORMAL) Comprehensive Metabolic Panel (04/12/2025 1:39 PM EDT) [facility] Sodium 142 135 - 145 mmol/L [facility] Potassium 4.1 3.3 - 5.1 mmol/L [facility] Chloride 105 96 - 108 mmol/L [facility] Carbon Dioxide 30(H) 22 - 29 mmol/L [facility] Anion Gap 11(L) 12 - 20 [facility] Urea Nitrogen (BUN) 27(H) 9 - 16 mg/dL [facility] Creatinine, Serum 1.46(H) 0.5 - 1.4 mg/dL [facility] Creatinine Clr Calc Pharmacy 44.8 [facility] Comment:eGFR (calculated fro m the MDRD study equation) and eCrCl(calculated from the Cockcroft-Gault equation) are based ondifferent parameters and may not yield comparable results.If eCrCl result is absurd, please check patient'sheight/weight. Estimated Glomerular Filt Rate 48 [facility] Comment:Chronic Kidney Disea se: Estimated GFR < 60 mL/min/1.32m7Nwutqv Kidney Disease: Estimated GFR < 15 mL/min/1.73m2 Glucose 88 60 - 115 mg/dL [facility] Calcium 9.5 8.4 - 10.2 mg/dL [facility] Bilirubin, Total 0.8 0.0 - 1.0 mg/dL [facility] Aspartate Amino Transferase 106(H) 5 - 37 U/L [facility] Alanine Aminotransferase 29 0 - 40 U/L [facility] Total Protein 6.5 6.5 - 8.0 g/dL [facility] Albumin Level 3.7 3.5 - 5.0 g/dL [facility] Alkaline Phosphatase 99 39 - 117 U/L [facility] 04/12/2025 1:39 PM EDT 04/12/2025 1:44 PM EDT us Generic External Data Provider LAB BLOOD ORDERAB LES Final Result [facility] [address] [place] [phone] * Urinalysis w/reflex microscopic (04/12/2025 1:33 PM EDT) Color Urine Yellow [facility] Appearance Urine Clear [facility] PH 5.5 5.0 - 9.0 [facility] Glucose Urine UA Negative Negative mg/dL [facility] Urine Blood Negative Negative [facility] Specific [place] - Urine 1.015 1.005 - 1.025 [facility] Urine Protein Negative Neg-Trace mg/dL [facility] Urine Ketones Trace Negative mg/dL [facility] Nitrite Urine Negative Negative [facility] Leukocyte Esterase Urine Negative Negative [facility] 04/12/2025 1:33 PM EDT 04/12/2025 1:44 PM EDT Narrative [facility] - 04/12/2025 1:49 PM EDT [id number], Clean Catch Generic External Data Provider LAB URINE ORDERAB LES Final Result [facility] [address] [place] [address] [phone] * (ABNORMAL) POCT Urinalysis (03/26/2025 5:27 [...] 5:27 PM EDT) 03/26/2025 5:27 PM EDT [facility] E BUSINESS MANAGER OUTPATIENT REFERRAL ORDERABLE S Final Result * Lipid Panel, Standard (03/01/2025 2:50 PM EDT) Triglycerides 57 <150 mg/dL [facility] Comment:Desirable Triglyceri de: less than 150 mg/dLBorderline High Triglyceride 150-199 mg/dLHigh Triglyceride: 200-499 mg/dLVery High Triglyceride: greater than or equal to 5OO mg/dL Cholesterol 177 <200 mg/dL [facility] Comment:Desirable Cholestero l: less than 200 mg/dLBorderline High Cholesterol: 200-239 mg/dLHigh Cholesterol: greater than 239 mg/dL LDL Cholesterol Calculated 94 <100 mg/dL [facility] Comment:Desirable LDL: less than 100 mg/dLNear [...] 2:50 PM EDT 03/01/2025 3:55 PM EDT [facility] E BUSINESS MANAGER LAB BLOOD ORDERABLES Edited R esult - Final [facility] [address] [place] [phone] * POCT HGB A1C (01/19/2025 4:25 PM EDT) Hemoglobin A1C 6.0 4.0 - 6.0 % [employer] Lot # [id number] Lot# Expiration Date Blood 01/19/2025 4:25 PM EDT Kadie Salazar NP POINT OF CARE TEST ENTER/EDIT OR DERABLES Edited Result - Final * (ABNORMAL) Protein Creatinine Ratio, Urine (03/13/2024 9:57 AM EDT) Creatinine, Urine 97.69 mg/dL [facility] Protein, Total, Random Urine 14(H) <12 mg/dL [facility] Protein/Creatin ine Ratio, Ur 0.14 <0.2 [facility] Comment:The spot urine prote in:creatinine ratio may increase to 0.3during normal . 03/13/2024 9:57 AM EDT 03/13/2024 11:31 AM EDT Generic External Data Provider LAB URINE ORDERAB LES Final Result [facility] [address] [place] [address] [phone] * Hepatitis C Antibody with Reflex to HCV, RNA, Quantitative, Real-Time PCR (12/15/2022 9:44 AM EST) Hepatitis C Antibody NON-REACT SIDDHARTH NON-REACT SIDDHARTH [employer] Index <0.02 <1.00 [employer] Comment: HCV antibody was non-reactive. There is no laboratory evidence of HCV infection. In most cases, no further action is required. However, if recent HCV exposure is suspected, a test for HCV RNA (test code 01875) is suggested. For additional information please refer to http://education.[employer]/faq/VLJ01r3 (This link is being provided for informational/ educational purposes only.) Blood Venous blood specimen / Unknown 12/15/2022 9:44 AM EST 12/15/2022 9:45 AM EST Narrative [facility] - 12/16/2022 2:26 PM EST FASTING:UNKNOWN FASTING: UNKNOWN [facility] E BUSINESS MANAGER LAB BLOOD ORDERABLES Final Re sult Performing Organization Address City/[facility]/ZIP Co de Phone Number [facility] [address] [facility], [facility], [place] [address] [employer] [facility] [address] [facility], ([address]) [place] [address] * Hm Colonoscopy (07/18/2019 7:44 AM EDT) Historical Provider MD HEALTH MAINTENANCE Final Result from Last 3 Months or Most Recently Relevant to [place] [address] [address] [employer] USP OPTIONS (O D-SNP) JUAN ASHBY [id number] Care Teams Vehicle Maintenance Technician Relationship Specialty Start Date End Date Krysta Lockett FNP [address] [place] [phone] PCP - General Family Medicine 10/27/22
--- OUTSIDE RECORDS SUMMARY | 2025-06-05 13:31 | XMS_ITS | Clinical Summary ---
Author Organization [facility] CoverMyMeds [facility] Facility Address [address] [address] Care Team Providers Care Area Operations Manager Name Role Phone Unavailable Primary Care [...] % PVNMA 08/21/2020 us [facility] [id number] LICITED RESULTS Final Result PVNMA from Last 3 Months or Most Recently Relevant to Health Maintenance Insurance Medicaid [place] Medicare Medicaid [place] Medicare
--- OUTSIDE RECORDS SUMMARY | 2025-06-05 13:31 | XMS_ITS | Clinical Summary ---
Author Organization [employer] [facility] Address [address] [place] [address] Care Team Providers Care Pipe Coverer And Insulator Name Role Phone Unavailable Primary Care Provider [...]
[2025-06-15 12:54] VITALS: BMI 27.8
--- NOTE | 2025-06-18 09:07 | HO.ANESPROP2 ---
Documented by User: Linette Benites NP 06/18/25 09:09 HPI - Anesthesia Eval Consult details Narrative: 70yo M for Cholecystectomy Laparoscopic [place]s [facility] [place]. Stable and function at baseline per 06/08/25 office visit s/p gastric sleeve 2020 Hx of DVT on eliquis - arixtra bridge Anesthesia Pre-Procedure Meds Is the patient on any of the following meds?: GLP1/DPP4 PMFSH Active Problems Active Problems: All Active Problems Cholelithiasis with acute cholecystitis (Acute) Cholelithiasis (Acute) Right upper quadrant abdominal pain (Acute) CKD (chronic kidney disease) stage 3, GFR 30-59 ml/min (Acute) DVT (deep venous thrombosis) (Acute) Lymphedema (Acute) Overweight (Acute) Intestinal malabsorption following gastrectomy (Acute) Obesity (BMI 30.0-34.9) (Acute) Nausea & vomiting (Acute) Obesity (BMI 35.0-39.9 without comorbidity) (Acute) Morbid obesity due to excess calories (Acute) Varicose veins of left lower extremity with inflammation (Acute) Myofascial pain on left side (Acute) BMI 40.0-44.9, adult (Acute) Adult BMI 45.0-49.9 kg/sq m (Acute) Vitamin A deficiency (Acute) BMI 50.0-59.9, adult (Acute) Morbid (severe) obesity due to excess calories (Acute) Shortness of breath (Acute) Pre-op examination (Acute) Diabetes (Acute) Anticoagulation overlap therapy not prescribed at discharge (Acute) Chronic restrictive lung disease (Acute) Pulmonary nodules (Acute) Status post laparoscopic sleeve gastrectomy (Acute 06/2021) History of repair of hiatal hernia (Acute) Vitamin D deficiency (Acute) HLD (hyperlipidemia) (Acute) T2DM (type 2 diabetes mellitus) (Acute) Anxiety (Acute) Depression (Acute) Venous insufficiency (Acute) Hypertension (Acute) COPD (chronic obstructive pulmonary disease) (Acute) Past Medical History Medical History Anticoagulation overlap therapy not prescribed at discharge Chronic restrictive lung disease Pulmonary nodules COVID-19 vaccine series completed Arthritis Asthma Vitamin D deficiency HLD (hyperlipidemia) T2DM (type 2 diabetes mellitus) Anxiety Depression Venous insufficiency Hypertension COPD (chronic obstructive pulmonary disease) Family History Family History Father CVD (cardiovascular disease) Heart disease Mother Heart disease CVD (cardiovascular disease) Brother Cancer Brother Cancer Brother Heart attack Sister CVD (cardiovascular disease) Diabetes mellitus Hypertension Arthritis Family history of problems with anesthesia: No Surgical History Surgical History History of repair of hiatal hernia Status post laparoscopic sleeve gastrectomy (06/2021) History of esophagogastroduodenoscopy (EGD) History of umbilical hernia repair H/O colonoscopy with polypectomy History of Problems with Anesthesia: No Social History Social History Are you a primary care coordination manager to a significant other at home: No Do you presently have visiting nurse or other home services: Yes ([employer]-daughter) Alcohol intake: current Alcohol intake frequency: holidays/special occasions only Comment: no facial grimacing, medicated in pacu numerous times, pain scale explained Patient Tobacco Use Status: Former Tobacco user Tobacco use type: Cigarette Use of substances other than those prescribed or required for medical reasons: No Have you been hit, kicked, punched, or otherwise hurt by someone within the past year? If so, by whom?: No Are you DNR?: No Advance Directives: No Advance Directives Information Provided: Yes Advance Directives on File: No Advance Directives Date on File: 06/27/21 Poor oral hygiene: Yes (teeth upper, missing teeth lower) service: No Current occupational status: unemployed Meds Allergies Allergy/AdvReac Type Severity Reaction Status Date / Time aspirin (Aspirin) Allergy Mild SWELLING Verified 06/13/25 12:58 Penicillins Allergy Mild SWELLING Verified 06/13/25 12:58 NSAIDS (Non-Steroidal Allergy Unknown Verified 06/13/25 12:58 Anti-Inflamma Home Medications ?Medication ?Instructions ?Recorded ?Confirmed ?Last Taken ?Type atorvastatin 20 mg tablet 20 mg PO BEDTIME 11/04/20 06/13/25 Unknown History ascorbic acid (vitamin C) 250 mg 250 mg PO QAM 04/23/21 06/13/25 Unknown History tablet pen needle, diabetic 32 gauge x #50 ea 04/23/21 06/13/25 Unknown History tiotropium bromide 18 mcg capsule 1 cap inhalation DAILY 04/23/21 06/13/25 Unknown History with inhalation device celebrate MVI PO DAILY 04/20/22 06/13/25 Unknown History omeprazole 20 mg capsule,delayed 20 mg PO DAILY 07/28/22 06/13/25 Unknown History release nebulizers 03/09/23 06/13/25 Unknown History apixaban 5 mg tablet (Eliquis) 5 mg PO BID 05/02/24 06/13/25 Unknown History midodrine 2.5 mg tablet 2.5 mg PO 05/02/24 06/13/25 Unknown History trazodone 100 mg tablet 100 mg PO BEDTIME 05/02/24 06/13/25 Unknown History folic acid 1 mg tablet 1 mg PO QAM 05/19/24 06/13/25 Unknown History dulaglutide 0.75 mg/0.5 mL mg subcut .QMONDAY 06/18/25 06/11/25 History subcutaneous pen injector (Trulicity) Exam Height,Weight and Vital Signs: Height 5 ft 8 in Weight 82.917 kg Pertinent Lab Results Pertinent Lab Results: Laboratory Tests 04/12/25 13:39 WBC 5.5 Hgb 12.3 L Hct 36.3 L Plt Count 196 Sodium 142 Potassium 4.1 Chloride 105 Carbon Dioxide 30 H BUN 27 H Creatinine 1.46 H Narrative Narrative: EKG 04/2025 Vent. Rate : 63 BPM Atrial Rate : 63 BPM P-R Int : 172 ms QRS Dur : 88 ms QT Int : 416 ms P-R-T Axes : 66 63 50 degrees QTcB Int : 425 ms Normal sinus rhythm Normal ECG When compared with ECG of 26-Mar-2025 19:15, No significant changes seen NM cardiolite stress test 2023 Impression: 1. Myocardial perfusion imaging study shows normal myocardial perfusion. 2. Gated LVEF is 62% during stress; 59% during rest. 3. Transient ischemic dilatation not present. EKG component of the test reported separately. Assessment and Plan Assessment Anesthesia Assessment: Chart Reviewed Final Anesthetic Review Family History of Problems with Anesthesia: No History of Problems with Anesthesia: No Documented by User: Shirley Ruiz MD 06/19/25 13:58 [facility] Past Medical History Medical History Anticoagulation overlap therapy not prescribed at discharge Chronic restrictive lung disease Pulmonary nodules COVID-19 vaccine series completed Arthritis Asthma Vitamin D deficiency HLD (hyperlipidemia) T2DM (type 2 diabetes mellitus) Anxiety Depression Venous insufficiency Hypertension COPD (chronic obstructive pulmonary disease) Family History Family History Father CVD (cardiovascular disease) Heart disease Mother Heart disease CVD (cardiovascular disease) Brother Cancer Brother Cancer Brother Heart attack Sister CVD (cardiovascular disease) Diabetes mellitus Hypertension Arthritis Surgical History Surgical History History of repair of hiatal hernia Status post laparoscopic sleeve gastrectomy (06/2021) History of esophagogastroduodenoscopy (EGD) History of umbilical hernia repair H/O colonoscopy with polypectomy Social History Social History Are you a primary care coordination manager to a significant other at home: No Do you presently have visiting nurse or other home services: Yes ([employer]-daughter) Alcohol intake: current Alcohol intake frequency: holidays/special occasions only Comment: no facial grimacing, medicated in pacu numerous times, pain scale explained Patient Tobacco Use Status: Former Tobacco user Tobacco use type: Cigarette Use of substances other than those prescribed or required for medical reasons: No Have you been hit, kicked, punched, or otherwise hurt by someone within the past year? If so, by whom?: No Are you DNR?: No Advance Directives: No Advance Directives Information Provided: Yes Advance Directives on File: No Advance Directives Date on File: 06/27/21 Poor oral hygiene: Yes (teeth upper, missing teeth lower) service: No Current occupational status: unemployed Meds Allergies Allergy/AdvReac Type Severity Reaction Status Date / Time aspirin (Aspirin) Allergy Mild SWELLING Verified 06/13/25 12:58 Penicillins Allergy Mild SWELLING Verified 06/13/25 12:58 NSAIDS (Non-Steroidal Allergy Unknown Verified 06/13/25 12:58 Anti-Inflamma Home Medications ?Medication ?Instructions ?Recorded ?Confirmed ?Last Taken ?Type atorvastatin 20 mg tablet 20 mg PO BEDTIME 11/04/20 06/13/25 Unknown History ascorbic acid (vitamin C) 250 mg 250 mg PO QAM 04/23/21 06/13/25 Unknown History tablet pen needle, diabetic 32 gauge x #50 ea 04/23/21 06/13/25 Unknown History tiotropium bromide 18 mcg capsule 1 cap inhalation DAILY 04/23/21 06/13/25 Unknown History with inhalation device celebrate MVI PO DAILY 04/20/22 06/13/25 Unknown History omeprazole 20 mg capsule,delayed 20 mg PO DAILY 07/28/22 06/13/25 Unknown History release nebulizers 03/09/23 06/13/25 Unknown History apixaban 5 mg tablet (Eliquis) 5 mg PO BID 05/02/24 06/13/25 Unknown History midodrine 2.5 mg tablet 2.5 mg PO 05/02/24 06/13/25 Unknown History trazodone 100 mg tablet 100 mg PO BEDTIME 05/02/24 06/13/25 Unknown History folic acid 1 mg tablet 1 mg PO QAM 05/19/24 06/13/25 Unknown History dulaglutide 0.75 mg/0.5 mL mg subcut .QMONDAY 06/18/25 06/11/25 History subcutaneous pen injector (Trulicity) Exam Airway Mallampati Class: II TM Dist: >3cm Neck ROM: Limited Loose/Missing/Broken Teeth: Yes, Upper and Lower Heart: RRR Lungs: CTA Assessment and Plan Assessment Anesthesia Assessment: Anesthesia Plan Discussed Final Anesthetic Review NPO: Yes ASA Class: III Final Preanesthetic Review: Meds/Allgs Chart Reviewed, Consent Obtained/Reviewed and Anes Risks/Benef Reviewed Patient Risk: Intermediate Procedure Risk: Intermediate Anesthetic Plan Anesthetic Plan: GA Disposition: Standard PACU
[2025-06-18 09:10] VITALS: BMI 27.7
[2025-06-19] VITALS (12 sets, daily range): BP systolic 131–165; BP diastolic 60–82; PULSE 78–86; RESP 15–18; TEMP 36.2–36.8; O2SAT 96–100
[2025-06-19] MEDS: Aprepitant 32 MG/4.4 ML VIAL IVPUSH (12:42)
[2025-06-19] MEDS: Lactated Ringers 1,000 ML 100 ML IVCONT (12:42)
[2025-06-19 12:50] LABS: Glucose, Whole Blood 85 mg/dL (60-115)
--- NOTE | 2025-06-19 13:19 | MHC.SHP ---
Pre-Procedural Eval Section A - 24 Hr Update-Section A only Date of Service: 06/19/25 The patient is an INPATIENT: No The patient has been examined within 24 hours of the surgical procedure. The History & Physical has been completed within 30 days and I have reviewed it.: Yes Section B - Complete if H&P > 30 days Chief Complaint: Calculus of gallbladder without cholecystitis Relevant Family History (Specify if Yes): No Relevant Social History: None Present Medications: None Medical History: No relevant PMH History of Previous Operations: Relevant previous surgery/procedure and date(s) (Laparoscopic sleeve gastrectomy) Allergies: Allergies Allergy/AdvReac Type Severity Reaction Status Date / Time aspirin (Aspirin) Allergy Mild SWELLING Verified 06/13/25 12:58 Penicillins Allergy Mild SWELLING Verified 06/13/25 12:58 NSAIDS (Non-Steroidal Allergy Unknown Verified 06/13/25 12:58 Anti-Inflamma Review of Systems Sugical H&P ROS: Negative: Constitution, Cardiovascular, Respiratory, Neurological, Psychiatric, Hem-Onc, Allergic/Immunologic, Gastrointestinal, Genitourinary, Musculoskeletal, Integumentary, Endocrine and Eyes/Ears/Nose/Throat Exam Surgical H&P Exam: Normal: HEENT, Normal: Heart, Normal: Lungs, Normal: Extremities, Normal: Abdomen, Normal: Skin and Normal: Neurological Plan Diagnosis/Plan: Unchanged I have reviewed the history and physical and performed a pertinent physical examination on my patient. No changes have occurred unless specified. Time Spent With Patient Time: Total time managing care of this patient today ____ minutes.
--- NOTE | 2025-06-19 13:20 | PM.OP ---
Brief Operative Note Date of Service: 06/19/25 Pre-op diagnosis: Symptomatic cholelithiasis Post-op diagnosis: same (acute cholecystitis) Procedure: PROCEDURE DATE: 06/19/2025 PREOPERATIVE DIAGNOSIS: Symptomatic cholelithiasis, mid epigastric and right upper quadrant abdominal pain POSTOPERATIVE DIAGNOSIS: Same as above. PROCEDURE: Upper endoscopy and laparoscopic cholecystectomy Surgeon: Naun Solares M.D.. Ph.D. Conservator Artifacts:Kevin Palomo PA-C Anesthesia: General endotracheal anesthesia Estimated blood loss: Minimal FINDINGS AND PROCEDURE: OPERATIVE INDICATIONS: The patient is a 70 year old male who underwent a laparoscopic sleeve gastrectomy by Dr. Aguilar. The patient had remarkable weight loss so far and had a completely uneventful recovery. The patient was doing very well but has recently been complaining of persistent mid epigastric and right upper quadrant abdominal pain which is mostly postprandial. Ultrasound of the abdomen and pelvis was consistent with cholelithiasi. Based on this information we recommended laparoscopic cholecystectomy, upper endoscopy to evaluate the patient's symptoms. In addition to that the plan was also to examine the gastric bypass at the same time. Risks and complications of the surgery were discussed with the patient in advance particularly the possibility of conversion to an open surgery, bleeding, infection, obstruction, deep vein thrombosis or pulmonary embolism, bile leak or major bile duct injury that may require surgical intervention. The patient understood the risks and was in agreement with the plan. PROCEDURE: After informed consent was obtained by the patient, the patient was transferred to the Operating Room and was placed in the supine position. The patient was given preoperative antibiotics and after successful induction of general anesthesia a Navarro catheter and pneumatic compression devices were placed. An upper endoscopy was performed next, the oropharynx and esophagus appeared within the normal limits. There was no hiatal hernia. The sleeve was entered, appeared to be of normal size, there was no gastritis. There were no food contents. At that point the sleeve was decompressed and the scope was withdrawn from the patient's mouth. The patient was then prepped and draped in the usual sterile manner and abdominal access was established with the Celia technique. The abdomen was insufflated with C02 to a pressure of 15 mmHg. A 5 mm Versi-step port was placed, slightly to the right and superior from the umbilicus. The 5 mm camera was introduced. We inspected the area where the port had been placed and there was no injury. The patient was then placed initially in a steep reverse Trendelenburg position and three additional ports were placed, specifically a 12 mm Versi-step port just to the right ofthe midline below the xiphoid process and two 5 mm Versi-step ports at the right upper quadrant and right flank. At that point the patient was placed in a steep reverse Trendelenburg position tilted to the left side. The gallbladder was retracted cephalad and laterally. The peritoneal attachments of the gallbladder at the triangle of Calot posteriorly and anteriorly were taken down. The gallbladder was enveloped in fat and was acutely inflamed. The cystic duct and artery were both seen. The cystic artery was situated over the cystic duct which was thickened and inflamed. They were completely dissected free, skeletonized all the way to the infundibulum of the gallbladder . In a similar fashion we also cleaned the liver bed just behind the cystic artery to make sure there was no additional structures in this area. Because the cystic artery was sitting over the duct and they were denslely adherent without a lot of space in between, I decided to divide the cystic artery with the Thunderbeat, to allow enough space to be able to clip the duct properly. Once we confirmed that both structures were entering into the gallbladder and there were no other structures in the area, the cystic artery was divided with the Thunderbeat and the cystic duct was clipped with two clips proximally, one distally and were cut in-between. We then using the electrocautery we slowly took down the gallbladder from the liver bed. Small areas of bleeding from the liver parenchyma were controlled with the cautery. A piece of surgicel was left at the liver bed. After the gallbladder was completely detached from the liver bed, it was placed in an EndoCatch bag and was removed without difficulty from the xiphoid port. We then inspected the clips at the cystic duct and were both in place. There was no active bleeding from the liver bed. Because there was some bile spillage during gallbladder dissection from the gallabladder wall, Ithoroughly irrigated the right upper quadrant and we removed all fluid until clear. There was no spillage of stones. At that point the patient was placed in supine position, we deflated the abdomen and we removed all ports under direct vision and no bleeding was noted from any of the port sites. The fascia of the 12 mm port was closed using a #1 Polysorb suture. 30cc Ropivacaine and 1% Lidocaine plain were used to infiltrate the fascial closure as well as all skin incisions. The wounds were irrigated with saline mixed with antibiotic solution and then the skin was closed with 4-0 Monocryl subcuticular sutures antibiotic-coated. Steri-strips and OpSites were used to cover all incisions. The patient extubated and was transferred in stable condition to the Recovery Room for further care. I was present and performed all steps of the procedure. Mr. Palomo was the orthotics prosthetics assistant. There were no residents to assist with this case. Naun Solares M.D., Ph.D., F.A.C.S. Surgeon: Lennox Solares MD Anesthesia: local and other (TAP block) Was an Conservator Artifacts used for this Procedure?: No Conservator Artifacts: Kevin Palomo Estimated blood loss (mL): 10 IV fluids (mL): 1,500 Urine output (mL): 0 (No Navarro to record output) Pathology: other (Gallblader) Condition: stable Disposition: PACU
--- NOTE | 2025-06-19 15:47 | P.DS_ITS ---
DS: Providers Provider Date of Service: 06/20/25 Date of discharge: 06/20/25 Primary care physician: [facility] DS: Summary Hospital Course Hospital Course: ADMITTING DIAGNOSIS: Cholelithiasis, intraoperative hypotension ? DISCHARGE DIAGNOSIS: same, s/p laparoscopic cholecystectomy ? PAST SURGICAL HISTORY: Sleeve gastrectomy, hiatal hernia repair, umbilical hernia repair ? PROCEDURE: upper endoscopy, laparoscopic cholecystectomy ? DISCHARGE SUMMARY: ? History of Present Illness: ? The patient is a?70 year-old male with a history of cholelithiasis and associ ated co-morbidities as described above. The patient had extensive work-up, and was electively scheduled for laparoscopic, possible open laparoscopic cholecystectomy. Risks and complications of the surgery were discussed with the patient in advance, particularly the possibility of , pulmonary embolism, bleeding, bowel injury, GERD, cardiac, renal or pulmonary complications. The patient understood all the risks and was in agreement with the surgical plan. ? Hospital Course: ? The patient underwent an uneventful laparoscopic cholecystectomy on the day of admission. He did have intraoperative hypotension and was kept in the hospital overnight. Postoperatively, the patient was transferred to the surgical floor. The patient received IV Acetaminophen and IV dilaudid for pain control. Patient was started on bariatric phase 3 diet POD #0. On postoperative day one, the patient was feeling well without nausea, vomiting, fevers, or tachycardia. The patient had some mild incisional pain and the abdomen was soft. ? On the morning of postoperative day one, the patient was continued on bariatric phase 3 diet. During the day, the patient did fairly well, having some incisional pain, but able to ambulate adequately and to tolerate liquids well. ? Since the patient is doing well, we decided that the patient was ready to be discharged. The patient was given instructions to follow-up with me next week and to call my office for any fever over 101, persistent abdominal pain, nausea, vomiting, GERD, symptoms of DVT such as calf tenderness, or leg swelling, or pulmonary embolism such as chest pain or shortness of breath. The patient was encouraged to ambulate and use the incentive spirometer. The patient was allowed to shower, but no baths, and encouraged to stay active at home. All of these instructions were given to the patient personally. All questions were answered and the patient understood all instructions, the instructions were also given to the patient in print. Time Attestation Total time managing care of this patient today: 25 mintues. Discharge Coordination Time (in mins): 25 Quality: Safe Use of Opioids Does Pt have an Active Cancer Diagnosis on the Problem List?: No Quality: Stroke Does the patient have a stroke diagnosis?: No Physical Exam Vital Signs: Vital Signs: Last Vital Signs Temp 97.4 F 06/19/25 15:38 Pulse 82 06/19/25 15:43 Resp 16 06/19/25 15:43 BP 162/75 H 06/19/25 15:43 Pulse Ox 100 06/19/25 15:43 O2 Del Method Nasal Cannula wit h Capnography 06/19/25 15:43 O2 Flow Rate 2 06/19/25 15:43 BMI result Body Mass Index 27.7 DS: Data Data Completed and Pending Completed studies during hospitalization [Text1]: Procedures Excision of Stomach, Percutaneous Endoscopic Approach, Vertical (06/25/21) Release Omentum, Percutaneous Endoscopic Approach (06/25/21) Release Transverse Colon, Percutaneous Endoscopic Approach (06/25/21) Repair Diaphragm, Percutaneous Endoscopic Approach (06/25/21) Pending studies at discharge: Pending at discharge 06/19/25 15:07 Surgical [PTH] Routine Labs on day of discharge: Laboratory Results - last 24 hr 06/19/25 12:46 POC Glucose 85 Discharge Plan Discharge Patient Disposition: Home, Self-Care Referrals: [facility] [Primary Care Provider, Medical] - 1 Week Discharge Medications: Continued Trelegy Ellipta 100-62.5-25 mcg blister with device 1 inh inhalation DAILY 30 Days Qty: 60 11RF cholecalciferol (vitamin D3) 50 mcg (2,000 unit) capsule 50 mcg PO DAILY Qty: 90 3RF vitamin A palmitate 3,000 mcg (10,000 unit) capsule 10,000 unit PO DAILY Qty: 90 3RF zinc gluconate 30 mg tablet 30 mg PO DAILY Qty: 90 3RF ipratropium-albuterol 0.5 mg-3 mg(2.5 mg base)/3 mL solution for nebulization 3 ml inhalation BID Qty: 1620 0RF ipratropium-albuterol 0.5 mg-3 mg(2.5 mg base)/3 mL solution for nebulization 3 ml inhalation Q6H PRN (Reason: shortness of breath or wheezing) Qty: 15 0RF Trulicity 0.75 mg/0.5 mL pen injector subcut .QMONDAY atorvastatin 20 mg tablet 20 mg PO BEDTIME acetaminophen [Tylenol Extra Strength] 500 mg tablet 1,000 mg PO Q6H PRN (Reason: pain) Qty: 30 1RF tiotropium bromide 18 mcg capsule, w/inhalation device 1 cap inhalation DAILY ascorbic acid (vitamin C) 250 mg tablet 250 mg PO QAM (DME) pen needle, diabetic 32 gauge x 5/32 needle See Rx Instructions .ROUTE .MEDSUPPLY Qty: 50 Rx Instructions: As directed celebrate MVI PO DAILY (DME) nebulizers Misc See Rx Instructions .Route Rx Instructions: As directed albuterol sulfate 90 mcg/actuation HFA aerosol inhaler 2 inh inhalation Q6H PRN (Reason: shortness of breath or wheezing) 30 Days Qty: 18 12RF omeprazole 20 mg capsule,delayed release(DR/EC) 20 mg PO DAILY simethicone [Gas Relief (simethicone)] 80 mg tablet,chewable 80 mg PO BID-QID PRN (Reason: abdominal distention) Qty: 90 3RF folic acid 1 mg tablet 1 mg PO QAM trazodone 100 mg tablet 100 mg PO BEDTIME midodrine 2.5 mg tablet 2.5 mg PO ondansetron 4 mg tablet,disintegrating 4 mg PO Q12H Qty: 20 0RF Held Eliquis 5 mg tablet 5 mg PO BID Hold Instructions: Until discussed with Dr. Solares fondaparinux 2.5 mg/0.5 mL syringe 2.5 mg subcut Q24H Qty: 5 0RF Hold Instructions: Until discussed with Dr. Solares Discharge Orders: Discharge Order (Routine); Ordered 06/20/25 Ordered By: Lennox Solares Activity on Discharge: No heavy lifting Activity Restrictions/Additional Instructions: No tub baths, sex or returning to work until discussed at first post op appointment. No exercise, alcohol, tobacco or illegal drug use. Continue to use incentive spirometer hourly while awake. Walk in home for 5- 10 minutes every 2 hours during the first week. Follow all instructions in the bariatric handbook and call with any questions.Discharge Instructions 1. Please call your doctor or come back to the emergency room should any new symptoms arise. 2. You will receive a courtesy call from [facility] 24-48 hours after discharge. 3. Activity: abstain from alcohol, practice limited stair climbing, no bending, no driving, no exercise, no illicit substances, no lifting, no sex, no tub bath, no work. 4. Diet: continue as discussed with Dr. Solares. 5. Dressing Change/Wound Care: Your incision is covered by clear bandages and guaze underneath. If the area is tender, you may apply an ice pack for short intervals (no more than 20 minutes on, followed by at least 20 minutes off). Do not apply heat. Do not use creams, lotions, or topical antibiotics unless instructed to do so by your surgeon. These can cause infection or allergic reaction. 6. Call your doctor if: - Your temperature exceeds 101.5 F - You experience excessive pain or swelling - You have an unexpected reaction to medication - You have excessive bleeding - You experience continued vomiting/nausea - Your incision begins to separate - Your incision shows signs of infection such as increased redness, swelling, excessive pain, heat, or drainage (light blood or clear fluid is normal) 7. General instructions: No lifting greater than 5 lbs for 1 week and not more than 20lbs the next 3?weeks. No driving until seen at the office in 5-7 days after surgery. If you do not move your bowels in the next 2 days, please tell ?Dr. Solares. Please walk around your home every hour or two to prevent blood clots from forming in your legs. You do not need to wake from sleeping to walk. Please sleep in a bed or couch to prevent kinking at the hips and knees. Please take your incentive spirometer (your lung product safety administrator) home with you and use it for the next few days to prevent pneumonia. You may shower, no hot tubs, baths or swimming pools.?Please follow the post op diet instructions you are?given by Dr Solares? and text me daily at 5-6pm for an update.?If you have any issues or concerns or questions please communicate this to him via text.? The Celebrate shakes have all of the bariatric vitamins you need if you consume these shakes. If you are drinking other protein shakes, you will need to purchase the Celebrate multivitamins and calcium that are available in the hospital gift shop on the first floor of the [facility].??Do not take anything without first discussing with Dr Solares. Please make sure you are consuming at least 40 ounces of fluids per day starting the?day AFTER your discharge from the hospital. Always drink 1-2 ml per minute using the 5ml?syringe. If you drink faster you may experience?bloating,?gas pain, burping, nausea or heartburn. In that case please slow down your pace and use the syringe to?understand better the?proper?pace and volume of drinking. Do not hesitate to contact the office with any questions at . The patient's medical history has been reviewed and they are considered low risk for post op DVT and therefore DVT prophylaxis is not considered necessary. Travel after surgery was reviewed. The patient has not disclosed any travel plans during the first 30 days after surgery and they have been advised that within the first 30 days after surgery any bus, plane, train or car travel over 2 hours in duration is contraindicated due to the possibility of developing blood clots from immobility. Any travel, needs to include periods of ambulation of 10 minutes in duration every 2 hours.? The patient was instructed to discuss any plans for travel during this period with their bariatric surgeon. Call Dr. Solares at [phone] for fever >101F, persistent nausea, vomiting, right upper abdominal or right shoulder pain, yellow color at skin or eyes, shortness of breath, calf pain. Print Language: Libyan
[2025-06-19 16:27] LABS: Hematocrit 34.4 % (42.0-52.0); Hemoglobin 11.4 g/dl (14.0-18.0)
[2025-06-19 16:42] LABS: Anion Gap 11 (12-20); Blood Urea Nitrogen 19 mg/dL (9-16); Calcium 8.4 mg/dL (8.4-10.2); Carbon Dioxide 28 mmol/L (22-29); Chloride 107 mmol/L (96-108); Creatinine Clr Calc Pharmacy 62.9; Estimated Glomerular Filt Rate > 60; Potassium 4.1 mmol/L (3.3-5.1); Sodium 142 mmol/L (135-145)
[2025-06-19 16:58] LABS: Glucose, Whole Blood 115 mg/dL (60-115)
[2025-06-19] MEDS: Lactated Ringers 1,000 ML 125 ML IVCONT ×2 (17:28→22:49)
[2025-06-19] MEDS: Albuterol/Iprat 2.5/0.5MG 3 ML AMPUL.NEB INHALE (19:56)
[2025-06-19 20:42] LABS: Glucose, Whole Blood 164 mg/dL (60-115)
--- NOTE | 2025-06-19 20:44 | PM.PNGS ---
Subjective Subjective Date of Service: 06/20/25 Interval history: Feeling well. Mild incisional pain Physical Exam Vital Signs: Vital Signs: Last Vital Signs Temp 97.8 F 06/19/25 20:17 Pulse 85 06/19/25 20:17 Resp 16 06/19/25 20:17 BP 145/67 H 06/19/25 20:17 Pulse Ox 98 06/19/25 20:17 O2 Del Method Room Air 06/19/25 20:17 O2 Flow Rate 2 06/19/25 16:05 BMI result Body Mass Index 27.7 GI: Inspection: Yes normal to inspection and Yes incision (clean, dry and intact) Palpation (GI): Soft to palpation Extrem: Right lower extremity: normal to inspection (no calf tenderness) Left lower extremity: normal to inspection (no calf tenderness) Objective Data Active Medications Albuterol/Ipratropium (Albuterol/Iprat 2.5/0.5mg 3 Ml Ampul.Neb) [address] [facility] Last Admin: 06/19/25 19:56 Dose: 3 ml Documented By: TYLOR Dextrose (Dextrose 50 % 25 Gm/50 Ml Syringe) 25 gm IVPUSH Q15M PRN; Protocol PRN Reason: per Hypoglycemia Standing Ord. Fluticasone/Umeclidinium/Vilanterol (Fluticasone/Umeclidinium/Vilanterol 100/62.5/25 Blst.W.Dev) [address] [facility] Glucose (Glucose Gel 15 Gm Gel..Gram.) 15 gm PO Q15M PRN; Protocol PRN Reason: per Hypoglycemia Standing Ord. Hydromorphone HCl (Hydromorphone Hcl 0.5 Mg/0.5 Ml Syringe) 0.25 mg IVPUSH Q4H PRN; Protocol PRN Reason: Pain, Moderate(Pain Scale 4-6) Last Admin: 06/19/25 17:25 Dose: 0.25 mg Documented By: OLEKSANDR Acetaminophen (Ofirmev) 1,000 mg in 100 mls @ 16.7 mls/hr IV .Q6H [facility] Last Admin: 06/19/25 18:04 Dose: 16.7 mls/hr Documented By: OLEKSANDR Lactated Ringer's (Lr) 1,000 mls @ 125 mls/hr IVCONT .Q8H [facility] Last Admin: 06/19/25 17:28 Dose: 125 mls/hr Documented By: OLEKSANDR Insulin Human Lispro (Insulin Lispro 100 Unit/Ml 3 Ml Vial) [address] [facility]; Protocol Last Admin: 06/19/25 17:30 Dose: Not Given Documented By: OLEKSANDR Non-Admin Reason: No Insulin Coverage Metoclopramide HCl (Metoclopramide Hcl 10 Mg/2 Ml Vial) 10 mg IVPUSH Q6H PRN PRN Reason: Nausea Ondansetron HCl (Ondansetron Hcl 4 Mg/2 Ml Vial) 4 mg IVPUSH Q8H PRN PRN Reason: Nausea Pantoprazole Sodium (Pantoprazole Sodium 40 Mg/10 Ml Vial) 40 mg IVPUSH DAILY@0630 [facility] Sodium Chloride (0.9 % Sodium Chloride Flush 3 Ml Syringe) [address] [facility] Last Admin: 06/19/25 17:31 Dose: Not Given Documented By: OLEKSANDR Non-Admin Reason: IV Running Labs 06/20/25 05:09 06/20/25 05:09 Labs: Laboratory Results - last 24 hr 06/19/25 06/19/25 06/19/25 12:46 16:21 16:52 Anion Gap 11 L Estim Creat Clear Calc 62.9 Estimated GFR > 60 POC Glucose 85 115 Random Glucose 126 H Calcium 8.4 D 06/19/25 20:20 Anion Gap Estim Creat Clear Calc Estimated GFR POC Glucose 164 H Random Glucose Calcium Procedures Date of Service Date of Service: 06/20/25 Progress Note: A&P Assessment and plan (1) S/P laparoscopic cholecystectomy: Status: Acute Time Spent With Patient Time: Total time managing care of this patient today ____ minutes. Quality Stroke Does the patient have a stroke diagnosis?: No VTE Prior VTE?: Yes VTE Risk Level:: Surgical - moderate VTE Device Contraindication: N/A - Device Ordered VTE Drug Contraindication: N/A - Med Ordered (will be initiated when medically safe)
[2025-06-19] MEDS: 0.9 % Sodium Chloride Flush 3 ML SYRINGE IVFLUSH (21:03)
--- NOTE | 2025-06-20 00:45 | PC.NURSE ---
Assumed care of this patient ~19:00. Patient was medicated per MAR for pain. Tolerating bariatric phase 3 diet as ordered without n/v. Ambulating with assistance and walker, steady. Later during documentation writer's care after voiding in the bathroom with assistance, the pt offered a new c/o feeling as though his bladder was not empty all the way . A post-void residual was obtained showing 267ml. Covering Kevin MARTINEZ was notified. No new orders advised. No further complaints from the patient were offered. Bed alarm on and safety measures in place. Call davis within reach and educated on use. Handoff report was given to the oncoming RN at 23:00.
[2025-06-20 03:30] VITALS: BP 127/62; PULSE 82; RESP 16; TEMP 36; O2SAT 97
[2025-06-20] MEDS: Lactated Ringers 1,000 ML 125 ML IVCONT (05:21)
[2025-06-20 06:15] LABS: Alanine Aminotransferase 25 U/L (0-40); Albumin Level 3.5 g/dL (3.5-5.0); Alkaline Phosphatase 111 U/L (39-117); Anion Gap 14 (12-20); Aspartate Amino Transferase 37 U/L (5-37); Blood Urea Nitrogen 20 mg/dL (9-16); Calcium 8.7 mg/dL (8.4-10.2); Carbon Dioxide 24 mmol/L (22-29); Chloride 105 mmol/L (96-108); Creatinine Clr Calc Pharmacy 65.2; Estimated Glomerular Filt Rate > 60; Potassium 5.0 mmol/L (3.3-5.1); Sodium 138 mmol/L (135-145); Total Protein 6.0 g/dL (6.5-8.0)
[2025-06-20 06:16] LABS: Hematocrit 34.6 % (42.0-52.0); Hemoglobin 11.5 g/dl (14.0-18.0); Imm Gran Abs Auto 0.01 X10*3/uL (0.00-0.03); Imm Gran Pct Auto 0.2 % (0.0-0.4); Lymphocytes Absolute Auto 0.3 X10*3/uL (1.2-4.9); MANUAL DIFF FLAG SCAN; Mean Corpuscular HGB Conc 33.2 g/dl (31.0-36.0); Mean Corpuscular Hemoglobin 31.7 pg (27.0-33.0); Mean Corpuscular Volume 95.3 fL (80.0-98.0); NRBC Abs Auto 0.000 X10*3/uL (0.0-0.012); NRBC Pct Auto 0.0 /100WBC (0.0-0.2); Platelet Count 162 X10*3/uL (160-400); Red Blood Count 3.63 X10*6/uL (4.60-5.80); SCAN SMEAR FLAG 1; White Blood Count 5.4 X10*3/uL (4.8-10.8)
[2025-06-20 07:33] VITALS: BP 138/65; PULSE 78; RESP 16; TEMP 36.3; O2SAT 98
[2025-06-20 07:38] LABS: Glucose, Whole Blood 133 mg/dL (60-115)
[2025-06-20] MEDS: Albuterol/Iprat 2.5/0.5MG 3 ML AMPUL.NEB INHALE (08:27)
[2025-06-20 08:41] VITALS: PULSE 78; RESP 16; O2SAT 98
--- NOTE | 2025-06-20 10:33 | MHC.CM.PN ---
Patient medically cleared for dc home self care via private transport prior to CM assessment.
--- NOTE | 2025-06-20 10:35 | HO.POSTANES ---
Post Anesthesia Evaluation Post Anesthesia Evaluation Date of Service: 06/20/25 Vital Signs: Vital Signs Temp Pulse Resp BP Pulse Ox O2 Del Method 06/20/25 08:41 78 16 06/20/25 07:33 97.4 F 78 16 138/65 98 Room Air 06/20/25 03:30 96.8 F 82 16 127/62 97 Room Air 06/19/25 23:41 98.3 F 84 16 131/60 96 Room Air Anesthesia: General Mental Status: Awake Pain Control: Satisfactory Nausea/Vomiting: None Hydration: Adequate Anesthesia-Related Issues: No Anes. Related Issues
== END 2025-06-20 10:31 | disposition home or self-care (01) ==
LOC: HO.SSS 13:26 → HO.S3 16:33
PROVIDERS: Physician Assistant Surgical; Visit Provider Surgery
PROC: 0FT44ZZ Resection of Gallbladder, Percutaneous Endoscopic Approach (ICD-10-PCS; CPT 47562; principal; 2025-06-19 14:00)
DX: K80.10 Calculus of gallbladder with chronic cholecystitis without obstruction (principal); R59.0 Localized enlarged lymph nodes; K80.00 Calculus of gallbladder with acute cholecystitis without obstruction; I12.9 Hypertensive chronic kidney disease with stage 1 through stage 4 chronic kidney disease, or unspecified chronic kidney disease; E11.22 Type 2 diabetes mellitus with diabetic chronic kidney disease; N18.30 Chronic kidney disease, stage 3 unspecified; E78.5 Hyperlipidemia, unspecified; E55.9 Vitamin D deficiency, unspecified; J44.9 Chronic obstructive pulmonary disease, unspecified; R91.8 Other nonspecific abnormal finding of lung field; F32.A Depression, unspecified; Z86.718 Personal history of other venous thrombosis and embolism; Z79.01 Long term (current) use of anticoagulants; Z79.51 Long term (current) use of inhaled steroids; Z79.85 Long-term (current) use of injectable non-insulin antidiabetic drugs; Z88.0 Allergy status to penicillin; Z88.6 Allergy status to analgesic agent; Z98.84 Bariatric surgery status; Z98.890 Other specified postprocedural states; Z87.891 Personal history of nicotine dependence; Z56.0 Unemployment, unspecified
CPT/HCPCS: 47562; 36415; 80048; 80076; 82947; 85014; 85018; 85025; 88304; 94640; C9145; J0131; J1100; J1171; J1596; J1956; J2003; J2250; J2405; J2470; J2704; J2795; J3010; J7120

== ENCOUNTER → 2025-06-19 12:05 | Outpatient (BNV) | payer OTHER, SELFPAY | PROVIDERS: Visit Provider Surgery | DX: Z90.49 Acquired absence of other specified parts of digestive tract (principal) | CPT/HCPCS: 47562; 99024 ==

== ENCOUNTER 2025-07-02 12:53 | Outpatient (AMB) | payer OTHER, SELFPAY ==
--- NOTE | 2025-07-02 13:08 | A.OFFVIS_ITS ---
VS Expanded 07/02/25 13:11 BP 149/70 H Blood Pressure Location Rt brachial Blood Pressure Position Sitting Pulse 69 Pulse Source Pulse Oximeter Temp 97.3 F Temperature Source Temporal Artery Scan Pulse Oximetry 97 Oxygen Delivery Method Room Air Height 5 ft 8 in Weight 185 lb 9.6 oz BMI 28.2 Body Fat % 18 Body Fat Mass 33.2 Fat Free Mass 152.2 Visceral Fat Rating 12 Body Water % 59.8 Body Water Mass 110.8 Muscle Mass/Score 144.6 Basal Metabolic Rate/Score 1,974 Intake Visit Reasons: OV s/p Jacklyn 06/19/25 Medical Coding Instructor Required: Yes Medical Coding Instructor Services: Medical Coding Instructor Present Medical Coding Instructor Name: hospital cmi Allergies aspirin (Aspirin) Allergy (Mild, Verified 06/13/25 12:58) SWELLING Penicillins Allergy (Mild, Verified 06/13/25 12:58) SWELLING NSAIDS (Non-Steroidal Anti-Inflamma Allergy (Verified 06/13/25 12:58) Unknown Medication List - Last Reconciled 07/02/25 by JUAN Shirley acetaminophen (Tylenol Extra Strength) 1,000 mg (2 x 500 mg) PO Q6H PRN albuterol sulfate 90 mcg/actuation 2 inhalations inhalation Q6H PRN 30 days apixaban (Eliquis) 5 mg PO BID Held on 06/19/25. Instructions: Until discussed with Dr. Solares ascorbic acid (vitamin C) 250 mg PO QAM atorvastatin 20 mg PO BEDTIME [celebrate MVI PO DAILY] cholecalciferol (vitamin D3) 50 mcg PO DAILY dulaglutide (Trulicity) mg subcut .QMONDAY [id number] 100-62.5-25 mcg (Trelegy Ellipta) 1 inh inhalation DAILY 30 days folic acid 1 mg PO QAM fondaparinux 2.5 mg (0.5 mL) subcut Q24H Held on 06/19/25. Instructions: Until discussed with Dr. Solares ipratropium-albuterol 0.5 mg-3 mg(2.5 mg base)/3 mL 3 mL inhalation Q6H PRN ipratropium-albuterol 0.5 mg-3 mg(2.5 mg base)/3 mL 3 mL inhalation BID midodrine 2.5 mg PO nebulizers As directed omeprazole 20 mg PO DAILY ondansetron 4 mg PO Q12H pen needle, diabetic As directed simethicone (Gas Relief (simethicone)) 80 mg PO BID-QID PRN tiotropium bromide 1 cap inhalation DAILY trazodone 100 mg PO BEDTIME vitamin A palmitate 10,000 units PO DAILY zinc gluconate 30 mg PO DAILY HPI Comments Details: Patient is a pleasant 70-year-old male who returns to the office today in follow-up. He is 2 weeks post laparoscopic cholecystectomy for symptomatic cholelithiasis performed on 06/19/2025. Pathology revealing chronic jacklyn cystitis with cholelithiasis. Patient reports mild diarrhea with his morning meal of corn flakes with milk. Discussed the pathology of diarrhea after cholecystectomy, function of the gallbladder, function of the liver, up regulation in size of the common bile duct. Discussed ways to avoid diarrhea. No other complaints. No abdominal pain. No fever. PFSH Medical History Anticoagulation overlap therapy not prescribed at discharge Chronic restrictive lung disease Pulmonary nodules COVID-19 vaccine series completed Arthritis Asthma Vitamin D deficiency HLD (hyperlipidemia) T2DM (type 2 diabetes mellitus) Anxiety Depression Venous insufficiency Hypertension COPD (chronic obstructive pulmonary disease) Surgical History History of repair of hiatal hernia Status post laparoscopic sleeve gastrectomy (06/2021) History of esophagogastroduodenoscopy (EGD) History of umbilical hernia repair H/O colonoscopy with polypectomy Family History Father CVD (cardiovascular disease) Heart disease Mother Heart disease CVD (cardiovascular disease) Brother Cancer Brother Cancer Brother Heart attack Sister CVD (cardiovascular disease) Diabetes mellitus Hypertension Arthritis Social History Household Members Other:: daughter Are you a primary personal carer to a significant other at home: No Do you presently have visiting nurse or other home services: Yes ([employer]-daughter) Alcohol intake: current Alcohol intake frequency: holidays/special occasions only Comment: no facial grimacing, medicated in pacu numerous times, pain scale explained Patient Tobacco Use Status: Former Tobacco user Tobacco use type: Cigarette Advance Directives Date on File: 06/27/21 service: No Current occupational status: unemployed Physical Exam GI Inspection: Yes incision (Clean, dry, intact.) Assessment & Plan Assessment & Plan (1) S/P laparoscopic cholecystectomy: Code(s): Z90.49 - Acquired absence of other specified parts of digestive tract Category: Surgical Plan: Discussed pathology results Discussed pathophysiology of bile, gallbladder, liver. Discussed strategies to avoid diarrhea Told to avoid submersion into a body of water Return to clinic as scheduled.
[2025-07-02 13:11] VITALS: BP 149/70; PULSE 69; TEMP 36.3; O2SAT 97; BMI 28.2
--- OUTSIDE RECORDS SUMMARY | 2025-07-02 14:03 | XMS_ITS | Clinical Summary ---
Author Organization [employer] Address [address] [place] [address] 7[address] [place] [address] Care Team Providers Care Medical Dosimetrist Name Role Phone Krysta Lockett LITIGATION SECRETARY Primary Care Provider [phone] Allergies Active Allergy Reactions Criticality Noted Date [...] BY MOUTH EVERY MORNING 90 tablet 1 Active fluticasone (Flonase) 50 MCG/ACT nasal sprayIndication s:Seasonal allergies USE 2 SPRAYS IN EACH NOSTRIL EVERY DAY 48 g 024 Active Fluticasone-Delroy meterol 100-50 MCG/ACT aerosol powderIndicatio ns:Chronic obstructive pulmonary disease, unspecified COPD type ([facility]) INHALE 1 PUFF TWICE DAILY. RINSE MOUTH AFTER USING. 60 each 11 024 Active glucose 4 g chewable tabletIndicatio ns:Type 2 diabetes mellitus with hypoglycemia without coma, without long-term current use of insulin ([facility]) Chew 4 tablets (16 g) if needed for low blood sugar. 50 tablet 12 Active Diclofenac Sodium 1 % gelIndications: Other chronic pain Apply topically to affected areas twice daily 150 g Active Continuous Glucose Sensor (FreeStyle Iglesia 2 Sensor) miscIndications :Type 2 diabetes mellitus with hypoglycemia without coma, without long-term current use of insulin ([facility]) Apply 1 sensor every 14 days 2 each 2 024 Active Continuous Glucose Inside Sales Supervisor (FreeStyle Iglesia 2 [place]) deviceIndicatio ns:Type 2 diabetes mellitus with hypoglycemia without coma, without long-term current use of insulin ([facility]) Scan sensor every 8 hours 1 each Active folic acid (Folvite) 1 MG tabletIndicatio ns:Stage 3a chronic kidney disease ([facility]) TAKE 1 TABLET BY MOUTH EVERY MORNING [...] coma, without long-term current use of insulin ([facility]) INJECT ONE PEN (=0.75MG) SUBCUTANEOUSLY ONCE A WEEK DIRECTED 2 mL 1 025 Active Trulicity 0.75 MG/0.5ML solution auto-injectorIn dications:Type 2 diabetes mellitus with hypoglycemia without coma, without long-term current use of insulin ([facility]/HCC) INJECT ONE PEN (=0.75MG) SUBCUTANEOUSLY ONCE A WEEK DIRECTED 2 mL 1 025 2024 Discontinued Active [...] no improvement -gave today to pt # [phone] of his vascular office to call and reschedule apt --I called today as well Dr Beckham's office and left my phone number for a call back from vascular -referred to cards to r/o cardiac etiology -tylenol prn x pain in legs -raise legs -continue use of pneumatic compression -alarm signs and symptoms explained Venous insufficiency 12/23/2022 Overview (12/23/2022): Followed by [facility] vascular Negative LE ultrasound 11/2022 Assessment & [...] vein thrombosis) 12/15/2022 Overview (12/23/2022): Followed by [facility] Dr. 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 [...] NSR no ischemic findings -referred today to protection specialist x complete eval of echocardiogram x orthopnea [...] organization. Date Type Department Care Team Description 06/26/2025 Telephone [facility] [address] [place] [address] [facility] Appointment Request 06/22/2025 Refill [facility] [address] [place] [address] [facility] Type 2 diabetes mellitus with hypoglycemia without coma, without long-term current use of insulin ([facility]) 06/20/2025 Orders Only GENERIC EXTERNAL DATA DEPARTMENT Provider, Generic External Data 06/19/2025 Orders Only GENERIC EXTERNAL DATA DEPARTMENT Provider, Generic External Data 04/24/2025 Refill [facility] [address] [place] [address] [facility] Type 2 diabetes mellitus with hypoglycemia without coma, without long-term current use of insulin ([facility]) 04/12/2025 Orders Only GENERIC EXTERNAL DATA DEPARTMENT Provider, Generic External Data from Last 3 Months Immunizations Immunization Administration [...] 03/26/2025 5:22 PM EDT Plan of Treatment Upcoming Encounters Date Type Department Care Team (Late st Contact Info) Description 08/08/2025 9:15 AM EDT Office Visit [facility] [address] [place] [address] [facility] [address] [place] [address] Health Maintenance Due Date Last Done Comments [...] Procedure Name Priority Date/Time Associated Diagnosis Comments GLUCOSE, WHOLE BLOOD Routine 06/20/2025 7:35 AM EDT SLIDE REVIEW Routine 06/20/2025 5:09 AM EDT CBC WITH AUTO DIFFERENTIAL Routine 06/20/2025 5:09 AM EDT BASIC METABOLIC PANEL Routine 06/20/2025 5:09 AM EDT HEPATIC FUNCTION PANEL Routine 06/20/2025 5:09 AM EDT GLUCOSE, WHOLE BLOOD Routine 06/19/2025 8:20 PM EDT GLUCOSE, WHOLE BLOOD Routine 06/19/2025 4:52 PM EDT BASIC METABOLIC PANEL Routine 06/19/2025 4:21 PM EDT HEMOGLOBIN + HEMATOCRIT Routine 06/19/2025 4:21 PM EDT GROSS AND MICROSCOPIC LEVEL 3 Routine 06/19/2025 3:06 PM EDT GLUCOSE, WHOLE BLOOD Routine 06/19/2025 12:46 PM EDT US ABDOMEN LIMITED Routine 04/12/2025 2: 25 PM EDT LIPASE Routine 04/12/2025 1:39 PM EDT COMPREHENSIVE METABOLIC PANEL Routine 04/12/2025 1:39 PM EDT CBC WITH AUTO DIFFERENTIAL Routine 04/12/2025 1:39 PM EDT URINALYSIS WITH REFLEX MICROSCOPIC Routine 04/12/2025 1:33 PM EDT LIPID PANEL, STANDARD Routine 03/01/2025 2:50 PM [...] Relevant to Health Maintenance Results * (ABNORMAL) Glucose, Whole Blood (06/20/2025 7:35 AM EDT) Only the most recent of4 resultswithin the time period is included. Glucose, Whole Blood 133(H) 60 - 115 mg/dL [facility] Comment:METER #: [id number] 06/20/2025 7:35 AM EDT 06/20/2025 7:38 AM EDT Generic External Data Provider LAB BLOOD ORDERAB LES Final Result Performing Organization Address [facility] Co de Phone Number [facility] [address] [place] [phone] * Slide Review (06/20/2025 5:09 AM EDT) Slide Review VERIFIED [facility] 06/20/2025 5:09 AM EDT 06/20/2025 5:43 AM EDT Generic External Data Provider LAB BLOOD ORDERAB LES Final Result Performing Organization Address [facility] Co de Phone Number [facility] [address] [place] [phone] * (ABNORMAL) CBC auto differential (06/20/2025 5:09 AM EDT) Only the most recent of2 resultswithin the time period is included. White Blood Count 5.4 4.8 - 10.8 X10*3/uL [facility] Red Blood Count 3.63(L) 4.60 - 5.80 X10*6/uL [facility] Hemoglobin 11.5(L) 14.0 - 18.0 g/dl [facility] Hematocrit 34.6(L) 42.0 - 52.0 % [facility] Mean Corpuscular Volume 95.3 80.0 - 98.0 fL [facility] Mean Corpuscular Hemoglobin 31.7 27.0 - 33.0 pg [facility] Mean Corpuscular HGB Conc 33.2 31.0 - 36.0 g/dl [facility] Red Cell Distribution Width 11.6 11.0 - 16.0 % [facility] Platelet Count 162 160 - 400 X10*3/uL [facility] Mean Platelet Volume 10.4 9.4 - 12.4 fL [facility] Neutrophils Percent Auto 92.9(H) 45 - 73 % [facility] Imm Gran Pct Auto 0.2 0.0 - 0.4 % [facility] Lymphocytes Percent Auto 5.8(L) 20 - 40 % [facility] Monocytes Percent Auto 1.1(L) 2 - 11 % [facility] Eosinophils Percent Auto 0.0 0 - 4 % [facility] Basophils Percent Auto 0.0 0 - 2 % [facility] NRBC Pct Auto 0.0 0.0 - 0.2 /100WBC [facility] Neutrophils Absolute Auto 5.0 2.0 - 8.3 x10*3/uL [facility] Imm Gran Abs Auto 0.01 0.00 - 0.03 X10*3/uL [facility] Lymphocytes Absolute Auto 0.3(L) 1.2 - 4.9 X10*3/uL [facility] Monocytes Absolute Auto 0.1 0.1 - 1.2 X10*3/uL [facility] Eosinophils Absolute Auto 0.0 0.0 - 0.4 X10*3/uL [facility] Basophils Absolute Auto 0.0 0.0 - 0.2 X10*3/uL [facility] NRBC Abs Auto 0.000 0.0 - 0.012 X10*3/uL [facility] 06/20/2025 5:09 AM EDT 06/20/2025 5:43 AM EDT us Generic External Data Provider LAB BLOOD ORDERAB LES Edited Result - Final Performing Organization Address [facility]/ZIP Co de Phone Number [facility] [address] [place] [phone] [phone] * (ABNORMAL) Hepatic Function Panel (06/20/2025 5:09 AM EDT) Bilirubin, Total 0.7 0.0 - 1.0 mg/dL [facility] Bilirubin, Direct 0.3 0.0 - 0.5 mg/dL [facility] Aspartate Amino Transferase 37 5 - 37 U/L [facility] Alanine Aminotransferase 25 0 - 40 U/L [facility] Total Protein 6.0(L) 6.5 - 8.0 g/dL [facility] Albumin Level 3.5 3.5 - 5.0 g/dL [facility] Alkaline Phosphatase 111 39 - 117 U/L [facility] 06/20/2025 5:09 AM EDT 06/20/2025 5:43 AM EDT us Generic External Data Provider LAB BLOOD ORDERAB LES Final Result Performing Organization Address [facility] Co de Phone Number [facility] [address] [place] [phone] * (ABNORMAL) Basic Metabolic Panel (06/20/2025 5:09 AM EDT) Only the most recent of2 resultswithin the time period is included. Sodium 138 135 - 145 mmol/L [facility] Potassium 5.0 3.3 - 5.1 mmol/L [facility] Chloride 105 96 - 108 mmol/L [facility] Carbon Dioxide 24 22 - 29 mmol/L [facility] Anion Gap 14 12 - 20 [facility] Urea Nitrogen (BUN) 20(H) 9 - 16 mg/dL [facility] Creatinine, Serum 1.12 0.5 - 1.4 mg/dL [facility] Creatinine Clr Calc Pharmacy 65.2 [facility] Comment:eGFR (calculated fro m the MDRD study equation) and eCrCl(calculated from the Cockcroft-Gault equation) are based ondifferent parameters and may not yield comparable results.If eCrCl result is absurd, please check patient'sheight/weight. Estimated Glomerular Filt Rate >60 [facility] Comment:Chronic Kidney Disea se: Estimated GFR < 60 mL/min/1.46l2Qsxsal Kidney Disease: Estimated GFR < 15 mL/min/1.73m2 Glucose 154(H) 60 - 115 mg/dL [facility] Calcium 8.7 8.4 - 10.2 mg/dL [facility] 06/20/2025 5:09 AM EDT 06/20/2025 5:43 AM EDT Generic External Data Provider LAB BLOOD ORDERAB LES Final Result Performing Organization Address City/[facility]/ZIP Co de Phone Number [facility] [address] [place] [phone] * (ABNORMAL) Hemoglobin and Hematocrit (06/19/2025 4:21 PM EDT) Hemoglobin 11.4(L) 14.0 - 18.0 g/dl [facility] Hematocrit 34.4(L) 42.0 - 52.0 % [facility] 06/19/2025 4:21 PM EDT 06/19/2025 4:24 PM EDT us Generic External Data Provider LAB BLOOD ORDERAB LES Final Result Performing Organization Address City/[facility]/ZIP Co de Phone Number [facility] [address] [place] [phone] * Gross and Microscopic Level 3 (06/19/2025 3:06 PM EDT) 06/19/2025 3:06 PM EDT 06/20/2025 8:35 AM EDT Venus [facility] - 06/21/2025 3:22 PM EDT ----- ------- Name: Armando Ba Age/Sex: 70/M : 1955 Unit#: [id number] Attend Dr: Lennox Solares MD Re06/19/25 Status: [facility] Location: [facility] Disch: ----- ------- SPEC : [id number] RECD: 06/20/25 STATUS: ELVIRA DE LUNA NUM: [id number] VIOLETTA: 06/19/25-[address] [facility] [address]: Lennox Solares MD ENTERED: 06/20/25 SP TYPE: Surgical OTHR DR: [facility] ORDERED: Gross Micro L3 Diagnosis Gallbladder, cholecystectomy: Chronic cholecystitis, cholelithiasis and one reactive periductal lymph node. Clinical History Calculus of gallbladder without cholecystitis Microscopic Description Microscopic sections reviewed. Material Received Gallbladder Gross Description Received in formalin labeled gallbladder is an intact, 5.0 x 3.5 x 3.5 cm smooth and shaggy, blue-green gallbladder resected in continuity with 0.25 cm of clipped cystic duct. Upon opening the gallbladder contains copious green-black bile and multiple multifaceted, hard, yet, friable black choleliths ranging from 0.2-0.6 cm. The mucosa is finely reticulated, velvety, green-black. On sectioning the wall is bile-stained and fibrotic measuring up to 0.15 cm in thickness. Traffic Signal Repairer sections are submitted in a cassette labeled A1 to include the margin of resection of the cystic duct. [facility] IHC S/NG Disclaimer NOTE: Unless otherwise stated, all tissue is formalin-fixed and paraffin-embedded. Some or all of the immunohistochemical tests reported herein may have been developed and their performance characteristics determined by [facility]. They have not been cleared or approved by the U.S. Food and Drug Administration (FDA). However, the FDA has determined that such clearance or approval is not necessary. This laboratory is certified under the Clinical Laboratory Improvement Amendments of 1988 (CLIA) as qualified to perform high complexity clinical laboratory testing. CONTINUED ON NEXT PAGE ----- ------- Name: Armando Ba Age/Sex: 70/M : 1955 Unit#: [id number] Attend Dr: Lennox Solares MD Re06/19/25 Status: [facility] Location: [facility] Disch: ----- ------- SPEC : [id number] RECD: 06/20/25 STATUS: ELVIRA DE LUNA NUM: [id number] VIOLETTA: 06/19/25-[address] [facility] [address]: Lennox Solares MD ENTERED: 06/20/25 SP TYPE: Surgical OTHR DR: [facility] ORDERED: Gross Micro L3 Copies To: [facility] [address] [facility] [address] Lennox Solares MD [facility] Weight Management Program [address] [place] [phone] ----- ------- Signed (signature on file) Karina Giron MD 06/21/25 1522 ----- ------- END OF REPORT us Generic External Data Provider LAB CYTOLOGY DALLIN ZARCO Final Result [facility] [address] [place] [phone] * US Abdomen Limited (04/12/2025 2:25 PM EDT) Anatomical Region Laterality Modality Abdomen Ultrasound 04/12/2025 2:25 PM EDT Narrative 04/12/2025 3:59 PM EDT [place] [address] Ultrasound Report Signed Patient: Armando Ba MR#: [id number] : 1955 Acct:[id number] Age/Sex: 70 / M ADM Date: 04/12/25 Loc: HO.ED Attending Dr: Ordering Physician: Thea Puckett Date of Service: 04/12/25 Procedure(s): US abdomen limited Accession Number(s): [id number] cc: [facility]; Thea Puckett EXAMINATION: US ABDOMEN LIMITED [...] 04/12/25 1557 DD/ 1425 TD/TT: 04/12/25 1500 Tipple Oiler: Procedure Note Donotuseinterpreter, Image - 04/12/[address] [address] Ultrasound Report Signed Patient: Armando BaMR#: [id number] : 6Acct:[id number] Age/Sex: 70 / MADM Date: 04/12/25 Loc: HO.ED Attending Dr: Ordering Physician: Thea Puckett Date of Service: 04/12/25 Procedure(s): US abdomen limited Accession Number(s): [id number] cc: [facility]; Thea Puckett EXAMINATION: US ABDOMEN LIMITED [...] 04/12/25 1557 DD/ 1425 TD/TT: 04/12/25 1500 Tipple Oiler: us [facility] External Provider IMG US PROCEDURES Edited Result - Final * Lipase (04/12/2025 1:39 PM EDT) Lipase 15 8 - 78 U/L [facility] 04/12/2025 1:39 PM EDT 04/12/2025 1:44 PM EDT us Generic External Data Provider LAB BLOOD ORDERAB LES Final Result [facility] [address] [place] [phone] * (ABNORMAL) Comprehensive Metabolic Panel (04/12/2025 1:39 PM EDT) Sodium 142 135 - 145 mmol/L [facility] Potassium 4.1 3.3 - 5.1 mmol/L [facility] Chloride 105 96 - 108 mmol/L [facility] Carbon Dioxide 30(H) 22 - 29 mmol/L [facility] Anion Gap 11(L) 12 - 20 [facility] Urea Nitrogen (BUN) 27(H) 9 - 16 mg/dL [facility] Creatinine, Serum 1.46(H) 0.5 - 1.4 mg/dL [facility] Creatinine Clr Calc Pharmacy 44.8 [facility] Comment:eGFR (calculated fro m the MDRD study equation) and eCrCl(calculated from the Cockcroft-Gault equation) are based ondifferent parameters and may not yield comparable results.If eCrCl result is absurd, please check patient'sheight/weight. Estimated Glomerular Filt Rate 48 [facility] Comment:Chronic Kidney Disea se: Estimated GFR < 60 mL/min/1.00g5Rbppno Kidney Disease: Estimated GFR < 15 mL/min/1.73m2 Glucose 88 60 - 115 mg/dL [facility] Calcium 9.5 8.4 - 10.2 mg/dL [facility] Bilirubin, Total 0.8 0.0 - 1.0 mg/dL [facility] Aspartate Amino Transferase 106(H) 5 - 37 U/L [facility] Alanine Aminotransferase 29 0 - 40 U/L [facility] Total Protein 6.5 6.5 - 8.0 g/dL [facility] Albumin Level 3.7 3.5 - 5.0 g/dL [facility] Alkaline Phosphatase 99 39 - 117 U/L [facility] 04/12/2025 1:39 PM EDT 04/12/2025 1:44 PM EDT us Generic External Data Provider LAB BLOOD ORDERAB LES Final Result Performing Organization Address [facility] Co de Phone Number [facility] [address] [place] [phone] * Urinalysis w/reflex microscopic (04/12/2025 1:33 PM EDT) Color Urine Yellow [facility] Appearance Urine Clear [facility] PH 5.5 5.0 - 9.0 [facility] Glucose Urine UA Negative Negative mg/dL [facility] Urine Blood Negative Negative [facility] Specific [place] - Urine 1.015 1.005 - 1.025 [facility] Urine Protein Negative Neg-Trace mg/dL [facility] Urine Ketones Trace Negative mg/dL [facility] Nitrite Urine Negative Negative [facility] Leukocyte Esterase Urine Negative Negative [facility] 04/12/2025 1:33 PM EDT 04/12/2025 1:44 PM EDT Narrative [facility] - 04/12/2025 1:49 PM EDT [id number], Clean Catch us Generic External Data Provider LAB URINE ORDERAB LES Final Result Performing Organization Address [facility] Co de Phone Number [facility] [address] [place] [phone] * Lipid Panel, Standard (03/01/2025 2:50 PM EDT) Triglycerides 57 <150 mg/dL [facility] Comment:Desirable Triglyceri de: less than 150 mg/dLBorderline High Triglyceride 150-199 mg/dLHigh Triglyceride: 200-499 mg/dLVery High Triglyceride: greater than or equal to 5OO mg/dL Cholesterol 177 <200 mg/dL [facility] Comment:Desirable Cholestero l: less than 200 mg/dLBorderline High Cholesterol: 200-239 mg/dLHigh Cholesterol: greater than 239 mg/dL LDL Cholesterol Calculated 94 <100 mg/dL [facility] Comment:Desirable LDL: less than 100 mg/dLNear Optimal/Above Optimal LDL: 110- 129 mg/dLBorderline High LDL: 130-159 mg/dLHigh LDL: 160-189 mg/dLVery High LDL: greater than or equal to 190 mg/dL HDL Cholesterol 72 >40 mg/dL [facility] Comment:Desirable HDL: great er than 40 mg/dL Note: This HDL assay may give artificially low results in patients with liver disease. Blood Venous blood specimen / Unknown 03/01/2025 2:50 PM EDT 03/01/2025 3:55 PM EDT [facility] LITIGATION SECRETARY LAB BLOOD ORDERABLES Edited R esult - Final [facility] [address] [place] [phone] * POCT HGB A1C (01/19/2025 4:25 PM EDT) Hemoglobin A1C 6.0 4.0 - 6.0 % QC Media Lot # [id number] Lot# Expiration Date [id number] Blood 01/19/2025 4:25 PM EDT Kadie Salazar RADIOISOTOPE TECHNOLOGIST POINT OF CARE TEST ENTER/EDIT OR DERABLES Edited Result - Final * (ABNORMAL) Protein Creatinine Ratio, Urine (03/13/2024 9:57 AM EDT) Creatinine, Urine 97.69 mg/dL [facility] Protein, Total, Random Urine 14(H) <12 mg/dL [facility] Protein/Creatin ine Ratio, Ur 0.14 <0.2 [facility] Comment:The spot urine prote in:creatinine ratio may increase to 0.3during normal . 03/13/2024 9:57 AM EDT 03/13/2024 11:31 AM EDT Generic External Data Provider LAB URINE ORDERAB LES Final Result [facility] [address] [place] [phone] * Hepatitis C Antibody with Reflex to HCV, RNA, Quantitative, Real-Time PCR (12/15/2022 9:44 AM EST) Hepatitis C Antibody NON-REACT SIDDHARTH NON-REACT SIDDHARTH [facility] Index <0.02 <1.00 [facility] Comment: HCV antibody was non-reactive. There is no laboratory evidence of HCV infection. In most cases, no further action is required. However, if recent HCV exposure is suspected, a test for HCV RNA (test code 07914) is suggested. For additional information please refer to http://education.[employer]/faq/AAV28z3 (This link is being provided for informational/ educational purposes only.) Blood Venous blood specimen / Unknown 12/15/2022 9:44 AM EST 12/15/2022 9:45 AM EST Narrative [facility] - 12/16/2022 2:26 PM EST FASTING:UNKNOWN FASTING: UNKNOWN [facility] LITIGATION SECRETARY LAB BLOOD ORDERABLES Final Re sult Performing Organization Address City/[facility] Co de Phone Number [facility] [address], [place] [address] [employer] [place] [facility] [address] [facility], ([address]) [place] [phone] * Hm Colonoscopy (07/18/2019 7:44 AM EDT) Historical Provider HEALTH MAINTENANCE Final Result from Last 3 Months or Most Recently Relevant to Health Maintenance Insurance [facility] [employer] (HMO D-SNP) JUAN ASHBY [id number] Care Teams Medical Dosimetrist Relationship Specialty Start Date End Date RaleighKrysta FNP [address] [place] [phone] PCP - General Family Medicine 10/27/22
--- OUTSIDE RECORDS SUMMARY | 2025-07-02 14:04 | XMS_ITS | Clinical Summary ---
Author Organization [facility] [employer] [facility] Facility Address [address] [address] Care Team Providers Care Rug Dyer Name Role Phone Unavailable Primary Care Provider [...] % PVNMA 08/21/2020 us Rtama Conversion LAB [id number] LICITED RESULTS Final Result PVNMA from Last 3 Months or Most Recently Relevant to Health Maintenance Insurance Medicaid [place] Medicare * Guarantor: Jaron Gay Armando Account Type Relation to Patient Date of Phone Billing Address Personal/Family Self [address] [place] [id number] Medicaid [place] Medicare
--- OUTSIDE RECORDS SUMMARY | 2025-07-02 14:04 | XMS_ITS | Clinical Summary ---
Author Organization [employer] [facility] ity Address [address] [place] [address] Care Team Providers Care Collar Fuser Name Role Phone Unavailable Primary Care Provider [...]
== END 2025-07-02 13:19 | disposition home or self-care (01) ==
LOC: HO.HBS 12:53
PROVIDERS: Visit Provider Physician Assistant Surgical
DX: Z90.49 Acquired absence of other specified parts of digestive tract (principal)
CPT/HCPCS: 99024

== ENCOUNTER 2025-07-02 12:53 | Outpatient (REF) | payer OTHER, SELFPAY ==
[2025-07-02 14:33] LABS: Hemoglobin A1C 109.7756 umol/L; Total Hemoglobin (HGBA1C) 3384.4851 umol/L
[2025-07-02 14:48] LABS: Anion Gap 12 (12-20); Blood Urea Nitrogen 16 mg/dL (9-16); Carbon Dioxide 27 mmol/L (22-29); Chloride 107 mmol/L (96-108); Estimated Glomerular Filt Rate 51; Potassium 4.0 mmol/L (3.3-5.1); Sodium 142 mmol/L (135-145)
[2025-07-02 14:59] LABS: Protein/Creatinine Ratio, Ur 0.09 (<0.2); Total Protein Urine Random 23 mg/dL (<12)
== END 2025-07-02 12:54 | disposition home or self-care (01) ==
LOC: HO.LAB 12:53
PROVIDERS: Absent Provider Internal Medicine Nephrology; Visit Provider Physician Assistant Surgical
DX: Z90.49 Acquired absence of other specified parts of digestive tract (principal); N18.31 Chronic kidney disease, stage 3a; Z13.1 Encounter for screening for diabetes mellitus
CPT/HCPCS: 36415; 80051; 82565; 82570; 83036; 84156; 84520; 99212

== ENCOUNTER 2025-07-23 07:28 | Emergency (ER) | payer OTHER, SELFPAY ==
--- NOTE | ~2025-07-23 | XR_ITS ---
EXAMINATION: XR CHEST 2 VIEWS HISTORY: weakness COMPARISON: Comparison is made with the prior examination dated 11/26/2023. FINDINGS: AP and lateral views of the chest are submitted. The lungs are expanded and clear. There is no pleural effusion, pneumothorax, or pulmonary vascular congestion. The heart is normal in size. There is mild degenerative disc disease of the spine. XR/XR chest 2V IMPRESSION: No acute cardiopulmonary abnormality. Electronically signed by: Michel Peck MD 07/23/2025 09:23 AM EDT
[2025-07-23 07:37] VITALS: BP 150/80; PULSE 85; O2SAT 98
[2025-07-23 07:44] VITALS: BP 142/70; PULSE 81; RESP 19; TEMP 37.3; O2SAT 97; BMI 29.7
[2025-07-23 07:51] VITALS: BP 142/70; PULSE 81; PULSE 83; RESP 19; TEMP 37.3; O2SAT 97
--- NOTE | 2025-07-23 07:55 | PC.NURSE ---
70 M presents to ED with lower back pain, chest pain, LUQ pain, and lower back pain x 5 days with nausea and diarrhea. A+Ox4, calm, cooperative. Pt sts he ambulates with a walker, cane, and wheelchair. Pt denies any SOB. RR even and unlabored. Pt sts he has been taking pain medications at home but pain persists.
--- NOTE | 2025-07-23 07:57 | ECG_ITS ---
Test Reason : CHEST PAIN Blood Pressure : */* mmHG Vent. Rate : 79 BPM Atrial Rate : 79 BPM P-R Int : 152 ms QRS Dur : 82 ms QT Int : 368 ms P-R-T Axes : 67 53 40 degrees QTcB Int : 421 ms Normal sinus rhythm Normal ECG When compared with ECG of 12-Apr-2025 13:12, No significant change was found Referred By: Generic ED Physician Electronically Signed By: SOFIA SIMMONS
[2025-07-23 08:13] VITALS: BP 125/72; PULSE 78; RESP 13; TEMP 37.5; O2SAT 98
--- NOTE | 2025-07-23 08:21 | ED.CHESTPAIN ---
HPI - Chest Pain General Chief Complaint: Chest Pain Stated Complaint: CP,RECENTLY SICK,WARM TO TOUCH PER EMS Time Seen by Provider: 07/23/25 08:21 Source: patient, EMS and salvage engineering technician Mode of arrival: ambulatory Limitations: no limitations History of Present Illness ED Provider: HPI narrative: 70-year-old male Romanian-speaking information was obtained with the help of the upper caser presenting with a essentially stating his whole-body hurts, headache, upper or lower back pain, mild cough, mild sore throat, no dysuria no hematuria denied abdominal pain to me, about a month ago he had cholecystectomy which was elective, has had no skin changes reports diarrhea after surgery but I will unwell. States has been using [id number] medications at home without relief. He also endorse chest pain but that was not specific he has had multiple other complaints and chest pain was mentioned in transient. It is midsternal nonradiating Related Data Home Medications ?Medication ?Instructions ?Recorded ?Confirmed atorvastatin 20 mg tablet 20 mg PO BEDTIME 11/04/20 07/02/25 ascorbic acid (vitamin C) 250 mg 250 mg PO QAM 04/23/21 07/02/25 tablet pen needle, diabetic 32 gauge x #50 ea 04/23/21 07/02/25 tiotropium bromide 18 mcg capsule 1 cap inhalation DAILY 04/23/21 07/02/25 with inhalation device celebrate MVI PO DAILY 04/20/22 07/02/25 omeprazole 20 mg capsule,delayed 20 mg PO DAILY 07/28/22 07/02/25 release nebulizers 03/09/23 07/02/25 apixaban 5 mg tablet (Eliquis) 5 mg PO BID 05/02/24 07/02/25 Held on 06/19/25. Instructions: Until discussed with Dr. Solares midodrine 2.5 mg tablet 2.5 mg PO 05/02/24 07/02/25 trazodone 100 mg tablet 100 mg PO BEDTIME 05/02/24 07/02/25 folic acid 1 mg tablet 1 mg PO QAM 05/19/24 07/02/25 dulaglutide 0.75 mg/0.5 mL mg subcut .QMONDAY 06/18/25 07/02/25 subcutaneous pen injector (Trulicity) Previous Rx's ?Medication ?Instructions ?Recorded ipratropium 0.5 mg-albuterol 3 mg 3 ml inhalation Q6H PRN shortness 09/12/20 (2.5 mg base)/3 mL nebulization of breath or wheezing #15 mL soln acetaminophen 500 mg tablet 1,000 mg (2 x 500 mg) PO Q6H PRN 06/16/21 (Tylenol Extra Strength) pain #30 tabs albuterol sulfate 90 mcg/actuation 2 inh inhalation Q6H PRN shortness 03/09/23 aerosol inhaler of breath or wheezing 30 days #18 grams simethicone 80 mg chewable tablet 80 mg PO BID-QID PRN abdominal 01/13/24 (Gas Relief (simethicone)) distention #90 tabs cholecalciferol (vitamin D3) 50 50 mcg PO DAILY #90 caps 08/07/24 mcg (2,000 unit) capsule fluticasone fur. 100 mcg-umeclid 1 inh inhalation DAILY 30 days #60 08/07/24 62.5 mcg-vilant 25 mcg ea inhalat.powder (Trelegy Ellipta) vitamin A palmitate 3,000 mcg 10,000 unit PO DAILY #90 caps 10/23/24 (10,000 unit) capsule zinc gluconate 30 mg tablet 30 mg PO DAILY #90 tabs 10/23/24 fondaparinux 2.5 mg/0.5 mL 2.5 mg (0.5 mL) subcut Q24H #5 mL 06/13/25 subcutaneous solution syringe Held on 06/19/25. Instructions: Until discussed with Dr. Solares ipratropium 0.5 mg-albuterol 3 mg 3 ml inhalation BID #1,620 mL 06/13/25 (2.5 mg base)/3 mL nebulization soln ondansetron 4 mg disintegrating 4 mg PO Q12H nausea and vomiting 06/13/25 tablet #20 tabs Allergies Allergy/AdvReac Type Severity Reaction Status Date / Time aspirin (Aspirin) Allergy Mild SWELLING Verified 07/23/25 07:48 Penicillins Allergy Mild SWELLING Verified 07/23/25 07:48 NSAIDS (Non-Steroidal Allergy Unknown Verified 07/23/25 07:48 Anti-Inflamma Review of Systems Constitutional: Constitutional: Reports as per HPI PMFSH Past Medical History Medical History Anticoagulation overlap therapy not prescribed at discharge Chronic restrictive lung disease Pulmonary nodules COVID-19 vaccine series completed Arthritis Asthma Vitamin D deficiency HLD (hyperlipidemia) T2DM (type 2 diabetes mellitus) Anxiety Depression Venous insufficiency Hypertension COPD (chronic obstructive pulmonary disease) Surgical History History of repair of hiatal hernia Status post laparoscopic sleeve gastrectomy (06/2021) History of esophagogastroduodenoscopy (EGD) History of umbilical hernia repair H/O colonoscopy with polypectomy Family History Family History Father CVD (cardiovascular disease) Heart disease Mother Heart disease CVD (cardiovascular disease) Brother Cancer Brother Cancer Brother Heart attack Sister CVD (cardiovascular disease) Diabetes mellitus Hypertension Arthritis Social History Social History Household Members Other:: daughter Are you a primary rn long term care to a significant other at home: No Do you presently have visiting nurse or other home services: Yes ([employer]-daughter) Alcohol intake: current Alcohol intake frequency: holidays/special occasions only Comment: no facial grimacing, medicated in pacu numerous times, pain scale explained Patient Tobacco Use Status: Former Tobacco user Tobacco use type: Cigarette Smoked in Last 30 Days: No Use of substances other than those prescribed or required for medical reasons: No Advance Directives Date on File: 06/27/21 Do you have a plan to hurt others: No Plan service: No Current occupational status: unemployed Physical Exam Vital Signs: Vital Signs: Last Vital Signs Temp 99.5 F 07/23/25 08:13 Pulse 78 07/23/25 08:13 Resp 13 07/23/25 08:13 BP 125/72 07/23/25 08:13 Pulse Ox 98 07/23/25 08:13 O2 Del Method Room Air 07/23/25 08:13 BMI result Body Mass Index 29.7 Const: Other: Gen: ?Overall well-appearing patient HEENT: No scleral icterus, uvula midline Neck: Supple, no lymphadenopathy CV: RRR, no obvious murmurs appreciated, some upper back discomfort without rashes Resp: ?No wheezing rales rhonchi no stridor moving air well Abd: ?Bowel sounds are present, no tenderness no rebound no rigidity well-healing scars from prior laparoscopic surgery MSK: FROM, strength 5/5 all extremities, chronic lymphedema with some venous stasis changes Skin: Chronic venous stasis changes bilateral lower extremities Neuro: ?Alert and oriented x3, moving upper and lower extremities symmetrically, no obvious facial asymmetry noted Medications Administered Generic Name Dose Route Start Last Admin Trade Name Freq PRN Reason Stop Dose Admin Sodium Chloride 1,000 mls @ 999 mls/hr 07/23/25 09:00 07/23/25 09:39 Ns IV 07/23/25 10:00 999 mls/hr .Q1H1M ROSS Administration Discontinued Medications Generic Name Dose Route Start Last Admin Trade Name Freq PRN Reason Stop Dose Admin Acetaminophen 1,000 mg in 100 mls @ 400 mls/hr 07/23/25 08:53 07/23/25 09:39 Ofirmev IV 07/23/25 09:07 400 mls/hr ONCE ONE Administration Medical Decision Making Medical Decision Making [facility] Narrative: 8:56 AM 07/23/2025 (Dr. Daniel Rdz): Patient is presenting with multiple complaints see my HPI overall well-appearing, has had no fevers, nonfocal ENT exam, lungs are clear, abdominal exam is benign, he had a surgery elective cholecystectomy about a month ago I doubt that he has had some kind of complication such as intra-abdominal abscess, choledocholithiasis cholangitis with that considered he is not jaundiced not altered nonfebrile, we will evaluate for other infectious considerations as below, we will treat symptomatically disposition to be determined. Differential Diagnosis Differential Diagnoses: The differential diagnosis associated with the presentation includes (Pneumonia, viral syndrome, choledocholithiasis, postsurgical complications, UTI, ACS) Admission/Observation Consideration of admission/observation: Escalation of care including admission/observation considered Lab Data [facility] Lab Attestation statement: I reviewed the patient's lab results. 07/23/25 08:04 07/23/25 08:50 Labs: Lab Results 07/23/25 07/23/25 07/23/25 Range/Units 08:04 08:50 08:51 WBC 5.0 (4.8-10.8) X10*3/uL RBC 3.73 L (4.60-5.80) X10*6/uL Hgb 11.5 L (14.0-18.0) g/dl Hct 35.6 L (42.0-52.0) % MCV 95.4 (80.0-98.0) fL MCH 30.8 (27.0-33.0) pg MCHC 32.3 (31.0-36.0) g/dl RDW 11.9 (11.0-16.0) % Plt Count 180 (160-400) X10*3/uL MPV 11.6 (9.4-12.4) fL Immature Gran % (Auto) 0.4 (0.0-0.4) % Neut % (Auto) 70.4 (45-73) % Lymph % (Auto) 17.3 L (20-40) % Robeson % (Auto) 9.3 (2-11) % Eos % (Auto) 2.2 (0-4) % Baso % (Auto) 0.4 (0-2) % Lymph # (Auto) 0.9 L (1.2-4.9) X10*3/uL Robeson # (Auto) 0.5 (0.1-1.2) X10*3/uL Eos # (Auto) 0.1 (0.0-0.4) X10*3/uL Baso # (Auto) 0.0 (0.0-0.2) X10*3/uL Abs Immat Gran (auto) 0.02 (0.00-0.03) X10*3/uL Absolute Neuts (auto) 3.5 (2.0-8.3) x10*3/uL Absolute Nucleated RBC 0.020 H (0.0-0.012) X10*3/uL Nucleated RBC % (auto) 0.4 H (0.0-0.2) /100WBC Sodium 141 (135-145) mmol/L Potassium 4.0 (3.3-5.1) mmol/L Chloride 106 (96-108) mmol/L Carbon Dioxide 28 (22-29) mmol/L Anion Gap 11 L (12-20) BUN 14 (9-16) mg/dL Creatinine 1.39 (0.5-1.4) mg/dL Estim Creat Clear Calc 54.2 Estimated GFR 51 Random Glucose 79 (60-115) mg/dL Calcium 8.4 (8.4-10.2) mg/dL Total Bilirubin 1.1 H (0.0-1.0) mg/dL AST 38 H (5-37) U/L ALT 38 (0-40) U/L Alkaline Phosphatase 121 H (39-117) U/L Troponin I High Sens 4.3 (<3.5-35.0) ng/L Total Protein 6.0 L (6.5-8.0) g/dL Albumin 3.5 (3.5-5.0) g/dL Lipase 9 (8-78) U/L COVID-19 (JONATHAN) Positive A (Negative) COVID-19 Clin Com See Note Independent Interpretation I performed an independent interpretation of an: EKG (79 beats per minute otherwise normal ECG without dysrhythmia, AV anupam blocks or ST-T changes to suspect underlying ACS, my independent interpretation) and Plain X-Ray (My independent chest xray interpretation: Lungs: Lungs are clear bilaterally without evidence of focal consolidation, pleural effusion, or pneumothorax. Cardiac silhouette is unremarkable, no obvious mediastinal widening, no obvious bony abnormalities such as fractures. Impression: Normal chest X-r) Radiology Impression Discussion of test interpretation with radiology: I have reviewed the radiologist's reading. Prescription Management I considered prescription management with: Antiviral and Antibiotic Discharge Plan Discharge Clinical Impression: COVID-19 virus infection Patient Disposition: Home, Self-Care Instructions: COVID-19 (Coronavirus Disease 2019) (ED), Social Distancing Guidelines for COVID-19 (ED) Additional Instructions: Your blood work is reassuring, chest x-ray without pneumonia, you did test positive for COVID that will explain all your symptoms, continue hydrating at home, and [id number] medications that you take you can continue using them, there were no other specific treatments for COVID at this time. Make sure that you decrease exposure to others in the community until you have symptoms make sure to wear a mask and I would aware him ask for the next few days until your symptoms resolved. Worsening issues come back to the ER otherwise follow up with your PCP Prescriptions: No Action Trelegy Ellipta 100-62.5-25 mcg blister with device 1 inh inhalation DAILY 30 Days Qty: 60 11RF cholecalciferol (vitamin D3) 50 mcg (2,000 unit) capsule 50 mcg PO DAILY Qty: 90 3RF vitamin A palmitate 3,000 mcg (10,000 unit) capsule 10,000 unit PO DAILY Qty: 90 3RF zinc gluconate 30 mg tablet 30 mg PO DAILY Qty: 90 3RF ipratropium-albuterol 0.5 mg-3 mg(2.5 mg base)/3 mL solution for nebulization 3 ml inhalation BID Qty: 1620 0RF ipratropium-albuterol 0.5 mg-3 mg(2.5 mg base)/3 mL solution for nebulization 3 ml inhalation Q6H PRN (Reason: shortness of breath or wheezing) Qty: 15 0RF Trulicity 0.75 mg/0.5 mL pen injector subcut .QMONDAY atorvastatin 20 mg tablet 20 mg PO BEDTIME acetaminophen [Tylenol Extra Strength] 500 mg tablet 1,000 mg PO Q6H PRN (Reason: pain) Qty: 30 1RF tiotropium bromide 18 mcg capsule, w/inhalation device 1 cap inhalation DAILY ascorbic acid (vitamin C) 250 mg tablet 250 mg PO QAM (DME) pen needle, diabetic 32 gauge x 5/32 needle See Rx Instructions .ROUTE .MEDSUPPLY Qty: 50 Rx Instructions: As directed celebrate MVI PO DAILY (DME) nebulizers Mis See Rx Instructions .Route Rx Instructions: As directed albuterol sulfate 90 mcg/actuation HFA aerosol inhaler 2 inh inhalation Q6H PRN (Reason: shortness of breath or wheezing) 30 Days Qty: 18 12RF omeprazole 20 mg capsule,delayed release(DR/EC) 20 mg PO DAILY simethicone [Gas Relief (simethicone)] 80 mg tablet,chewable 80 mg PO BID-QID PRN (Reason: abdominal distention) Qty: 90 3RF folic acid 1 mg tablet 1 mg PO QAM Eliquis 5 mg tablet 5 mg PO BID trazodone 100 mg tablet 100 mg PO BEDTIME midodrine 2.5 mg tablet 2.5 mg PO fondaparinux 2.5 mg/0.5 mL syringe 2.5 mg subcut Q24H Qty: 5 0RF ondansetron 4 mg tablet,disintegrating 4 mg PO Q12H Qty: 20 0RF Print Language: Guatemalan
[2025-07-23 08:36] LABS: Hematocrit 35.6 % (42.0-52.0); Hemoglobin 11.5 g/dl (14.0-18.0); Imm Gran Abs Auto 0.02 X10*3/uL (0.00-0.03); Imm Gran Pct Auto 0.4 % (0.0-0.4); Lymphocytes Absolute Auto 0.9 X10*3/uL (1.2-4.9); Mean Corpuscular HGB Conc 32.3 g/dl (31.0-36.0); Mean Corpuscular Hemoglobin 30.8 pg (27.0-33.0); Mean Corpuscular Volume 95.4 fL (80.0-98.0); NRBC Abs Auto 0.020 X10*3/uL (0.0-0.012); NRBC Pct Auto 0.4 /100WBC (0.0-0.2); Platelet Count 180 X10*3/uL (160-400); Red Blood Count 3.73 X10*6/uL (4.60-5.80); White Blood Count 5.0 X10*3/uL (4.8-10.8)
[2025-07-23 09:12] LABS: Lipase 9 U/L (8-78)
[2025-07-23 09:14] LABS: COVID-19 Test Positive (Negative); IDNOW Serial# 55D5AD1C
[2025-07-23 09:14] LABS: Anion Gap 11 (12-20); Blood Urea Nitrogen 14 mg/dL (9-16); Carbon Dioxide 28 mmol/L (22-29); Chloride 106 mmol/L (96-108); Creatinine Clr Calc Pharmacy 54.2; Potassium 4.0 mmol/L (3.3-5.1); Sodium 141 mmol/L (135-145)
[2025-07-23 09:15] LABS: Alanine Aminotransferase 38 U/L (0-40); Albumin Level 3.5 g/dL (3.5-5.0); Alkaline Phosphatase 121 U/L (39-117); Aspartate Amino Transferase 38 U/L (5-37); Calcium 8.4 mg/dL (8.4-10.2); Estimated Glomerular Filt Rate 51; Total Protein 6.0 g/dL (6.5-8.0)
[2025-07-23 09:21] LABS: Troponin-I High Sensitivity 4.3 ng/L (<3.5-35.0)
[2025-07-23 10:39] VITALS: BP 127/64; PULSE 79; RESP 15; O2SAT 98
--- NOTE | 2025-07-23 10:42 | PC.NURSE ---
pt spoke to daughter. pt sts daughter has an appointment, unable to pharmacy picking tech patient until around 1230.
--- NOTE | 2025-07-23 11:02 | PC.NURSE ---
pt moved to ED waiting room to pickup daughter per charge nurse direction.
[2025-07-23 11:03] VITALS: BP 127/64; PULSE 79; RESP 15; TEMP -17.7; TEMP 0; O2SAT 98
--- OUTSIDE RECORDS SUMMARY | 2025-07-23 12:46 | XMS_ITS | Encounter Summary ---
Author Organization [employer] Address [address] [facility] [address] [place] [address] Care Team Providers Care Doctor Of Chiropractic Name Role Phone Krysta Lockett SIDEROGRAPHIST Primary Care Provider [phone] Encounter Details Date Type Department Care Team ([facility] st Contact Info) Description 07/23/2025 Orders Only GENERIC EXTERNAL DATA DEPARTMENT Provider, Generic External Data Social History Tobacco Use Types Packs/Day Years [...] Description 08/08/2025 9:15 AM EDT Office Visit [facility] [address] [place], [place] [phone] [facility] [address] [place] [address] documented as of this encounter Procedures Procedure Name Priority Date/Time Associated Diagnosis Comments COVID-19 ID NOW (MENDOZA) Routine 07/23/2025 8:51 AM EDT HIGH SENSITIVITY TROPONIN I Routine 07/23/2025 8:50 AM EDT LIPASE Routine 07/23/2025 8:50 AM EDT COMPREHENSIVE METABOLIC PANEL Routine 07/23/2025 8:50 AM EDT CBC WITH AUTO DIFFERENTIAL Routine 07/23/2025 8:04 AM EDT documented in this encounter Results * (ABNORMAL) COVID-19 ID NOW (MENDOZA) (07/23/2025 8:51 AM EDT) IDNOW SERIAL# [id number] [facility] COVID-19 TEST Positive (A) Negative [facility] COVID-19 NOTE See Note [facility] Comment: Results are for the identification of SARS-CoV2 RNA. TheSARS-CoV2 RNA is generally detectable in respiratory samplesduring the acute phase of infection. Positive results areindicative of the presence of SARS-CoV-2 RNA; clinicalcorrelation with patient history and other diagnosticinformation is necessary to determine patient infectionstatus. Positive results do not rule out bacterial infectionor co- infection with other viruses.Testing facilities within the [place] and [facility] are required to report all positive results tothe appropriate public health authorities.Negative results should be treated as presumptive and, ifinconsistent with clinical signs and symptoms or necessaryfor patient management, should be tested with differentauthorized or cleared molecular tests. Negative results donot preclude SARS-CoV2 RNA infection and should not be usedas the sole basis for patient management decisions. Negativeresults should be considered in the context of a patient'srecent exposures, history and the presence of clinical signsand symptoms consistent with COVID-19.This test has been authorized by the FDA under an EmergencyUse Authorization (EUA) for use by authorized laboratories.Testing performed on the [employer] ID NOW utilizing NAAT. 07/23/2025 8:51 AM EDT 07/23/2025 8:55 AM EDT Generic External Data Provider LAB MOLECULAR ALEA GNOSTICS ORDERABLES Final Result Performing Organization Address [facility]/ZIP Co de Phone Number [facility] [address] [place] [phone] * High Sensitivity Troponin I (07/23/2025 8:50 AM EDT) TROPONIN I HIGH SENSITIVITY 4.3 <3.5 - 35.0 ng/L [facility] Comment:The Mendoza high sens itivity Troponin-I results should beused in conjunction with other diagnostic information suchas ECG, clinical observations and information, and patientsymptoms to aid in the diagnosis of ID. 07/23/2025 8:50 AM EDT 07/23/2025 8:55 AM EDT us Generic External Data Provider LAB BLOOD ORDERAB LES Final Result Performing Organization Address [facility]/ZIP Co de Phone Number [facility] [address] [place] [phone] * (ABNORMAL) Comprehensive Metabolic Panel (07/23/2025 8:50 AM EDT) Sodium 141 135 - 145 mmol/L [facility] Potassium 4.0 3.3 - 5.1 mmol/L [facility] Chloride 106 96 - 108 mmol/L [facility] Carbon Dioxide 28 22 - 29 mmol/L [facility] Anion Gap 11(L) 12 - 20 [facility] Urea Nitrogen (BUN) 14 9 - 16 mg/dL [facility] Creatinine, Serum 1.39 0.5 - 1.4 mg/dL [facility] Creatinine Clr Calc Pharmacy 54.2 [facility] Comment:eGFR (calculated fro m the MDRD study equation) and eCrCl(calculated from the Cockcroft-Gault equation) are based ondifferent parameters and may not yield comparable results.If eCrCl result is absurd, please check patient'sheight/weight. Estimated Glomerular Filt Rate 51 [facility] Comment:Chronic Kidney Disea se: Estimated GFR < 60 mL/min/1.36f0Iktmmm Kidney Disease: Estimated GFR < 15 mL/min/1.73m2 Glucose 79 60 - 115 mg/dL [facility] Calcium 8.4 8.4 - 10.2 mg/dL [facility] Bilirubin, Total 1.1(H) 0.0 - 1.0 mg/dL [facility] Aspartate Amino Transferase 38(H) 5 - 37 U/L [facility] Alanine Aminotransferase 38 0 - 40 U/L [facility] Total Protein 6.0(L) 6.5 - 8.0 g/dL [facility] Albumin Level 3.5 3.5 - 5.0 g/dL [facility] Alkaline Phosphatase 121(H) 39 - 117 U/L [facility] 07/23/2025 8:50 AM EDT 07/23/2025 8:55 AM EDT us Generic External Data Provider LAB BLOOD ORDERAB LES Final Result [facility] [address] [place] [phone] * Lipase (07/23/2025 8:50 AM EDT) Pathologist [facility] Lipase 9 8 - 78 U/L [facility] 07/23/2025 8:50 AM EDT 07/23/2025 8:55 AM EDT Generic External Data Provider LAB BLOOD ORDERAB LES Final Result [facility] [address] [place] [phone] * (ABNORMAL) CBC auto differential (07/23/2025 8:04 AM EDT) [facility] White Blood Count 5.0 4.8 - 10.8 X10*3/uL [facility] Red Blood Count 3.73(L) 4.60 - 5.80 X10*6/uL [facility] Hemoglobin 11.5(L) 14.0 - 18.0 g/dl [facility] Hematocrit 35.6(L) 42.0 - 52.0 % [facility] Mean Corpuscular Volume 95.4 80.0 - 98.0 fL [facility] Mean Corpuscular Hemoglobin 30.8 27.0 - 33.0 pg [facility] Mean Corpuscular HGB Conc 32.3 31.0 - 36.0 g/dl [facility] Red Cell Distribution Width 11.9 11.0 - 16.0 % [facility] Platelet Count 180 160 - 400 X10*3/uL [facility] Mean Platelet Volume 11.6 9.4 - 12.4 fL [facility] Neutrophils Percent Auto 70.4 45 - 73 % [facility] Imm Gran Pct Auto 0.4 0.0 - 0.4 % [facility] Lymphocytes Percent Auto 17.3(L) 20 - 40 % [facility] Monocytes Percent Auto 9.3 2 - 11 % [facility] Eosinophils Percent Auto 2.2 0 - 4 % [facility] Basophils Percent Auto 0.4 0 - 2 % [facility] NRBC Pct Auto 0.4(H) 0.0 - 0.2 /100WBC [facility] Neutrophils Absolute Auto 3.5 2.0 - 8.3 x10*3/uL [facility] Imm Gran Abs Auto 0.02 0.00 - 0.03 X10*3/uL [facility] Lymphocytes Absolute Auto 0.9(L) 1.2 - 4.9 X10*3/uL [facility] Monocytes Absolute Auto 0.5 0.1 - 1.2 X10*3/uL [facility] Eosinophils Absolute Auto 0.1 0.0 - 0.4 X10*3/uL [facility] Basophils Absolute Auto 0.0 0.0 - 0.2 X10*3/uL [facility] NRBC Abs Auto 0.020(H) 0.0 - 0.012 X10*3/uL [facility] 07/23/2025 8:04 AM EDT 07/23/2025 8:07 AM EDT us Generic External Data Provider LAB BLOOD ORDERAB LES Edited Result - Final [facility] [address] [place] [phone] documented in this encounter Visit Diagnoses Not on filedocumented in this encounter Additional Health Concerns Assessment Noted Time PHQ-9 Depression Total Score: 6 02/29/20 25 11:37 AM EDT documented as of this encounter Care Teams Doctor Of Chiropractic Relationship Specialty Start Date End Date Krysta Lockett FNP [address] [place] [phone] PCP - General Family Medicine 10/27/22 documented as of this encounter
--- OUTSIDE RECORDS SUMMARY | 2025-07-23 12:46 | XMS_ITS | Encounter Summary ---
Author Organization [employer] Address [address] [facility] [address] [place] [address] Care Team Providers Care Damper Maker Name Role Phone Krysta Lockett BOILER INSPECTOR Primary Care Provider [phone] Reason for Visit * Reason Comments Med Refill Encounter Details Date Type Department Care Team (Late Contact Info) Description 11/24/2022 Refill [facility] [address] [place], [place] [phone] Chey Multani MD [address] [place] [address] Social History Tobacco Use Types Packs/Day Years [...] rx for persistent orthostatic hypotension. T/C to [facility] pharmacy. Zeinab states that pt has been getting med boxes regularly and is due for med box delivery tomorrow. documented in this encounter Plan of Treatment Upcoming Encounters Date Type Department Care Team (Late Contact Info) Description 08/08/2025 9:15 AM EDT Office Visit [facility] [address] [place] [address] Krysta Lockett FNP [address] [place] [address] documented as of this encounter Visit Diagnoses Not on filedocumented in this encounter Care Teams Damper Maker Relationship Specialty Start Date End Date Krysta Lockett FNP [address] [place] [id number] PCP - General Family Medicine 10/27/22 documented as of this encounter
--- OUTSIDE RECORDS SUMMARY | 2025-07-23 12:46 | XMS_ITS | Encounter Summary ---
Author Organization [employer] Address [address] [place] [address] Care Team Providers Care Lamp Stack Developer Name Role Phone Krysta Lockett PRODUCTION SAMPLER Primary Care Provider [phone] Encounter Details Date Type Department Care Team (Late st Contact Info) Description 09/24/2023 Abstract [facility] [address] [place], [place] [phone] Richa Rehman Social History Tobacco Use Types [...] Description 08/08/2025 9:15 AM EDT Office Visit [facility] [address] [place] [address] Krysta Lockett FNP [address] [place] [address] documented as of this encounter Visit Diagnoses Not on filedocumented in this encounter Additional Health Concerns Assessment Noted Time PHQ-9 Depression Total Score: 0 12/21/19 23 10:22 AM EST documented as of this encounter Care Teams Lamp Stack Developer Relationship Specialty Start Date End Date Krysta Lockett FNP [address] [place] [address] PCP - General Family Medicine 10/27/22 documented as of this encounter
--- OUTSIDE RECORDS SUMMARY | 2025-07-23 12:46 | XMS_ITS | Encounter Summary ---
Author Organization [employer] Address [address] [facility] [address] [place] [address] Care Team Providers Care Boat Oar Maker Name Role Phone Krysta Lockett COMMUTATOR V RING ASSEMBLER Primary Care Provider [phone] Encounter Details Date Type Department Care Team (Late st Contact Info) Description 02/16/2024 Orders Only [facility] [address] [place], [place] [phone] Provider, MD Larissa Social History Tobacco Use [...] Description 08/08/2025 9:15 AM EDT Office Visit [facility] [address] [place], [place] [phone] [facility] [address] [place], [place] [phone] documented as of this encounter Procedures Procedure Name Priority Date/Time Associated Diagnosis Comments US RENAL BI Routine 03/08/2024 12:37 PM EDT HM COLONOSCOPY Routine 07/18/2019 7:44 AM EDT documented in this encounter Results * US RENAL BI (03/08/2024 12:37 PM EDT) Anatomical Region Laterality Modality Abdomen Ultrasound 03/08/2024 12:3 7 PM EDT Narrative 03/10/2024 10:07 AM EDT [address] [address] Ultrasound Report Signed Patient: Armnado Ba MR#: [id number] : 1955 Acct:[id number] Age/Sex: 68 / M ADM Date: 03/08/24 Loc: HO. Attending Dr: Bladimir Le MD Ordering Physician: Bladimir Le MD Date of Service: 03/08/24 Procedure(s): US renal BI Accession Number(s): [id number] cc: Bladimir Le MD; [facility] EXAMINATION: US RETROPERITONEAL LIMITED (RENAL ONLY) [...] in OV> 03/10/24 1004 DD/ 1237 TD/TT: Dry Cans Operator: ELAINE Procedure Note Donotuseinterpreter, Image - 03/10/2024 [place] [address] Ultrasound Report Signed Patient: Armando BaMR#: [id number] : 6Acct:[id number] Age/Sex: 68 / MADM Date: 03/08/24 Loc: HO.US Attending Dr: Bladimir Le MD Ordering Physician: Bladimir Le MD Date of Service: 03/08/24 Procedure(s): US renal BI Accession Number(s): [id number] cc: Bladimir Le MD; [facility] EXAMINATION: US RETROPERITONEAL LIMITED (RENAL ONLY) CLINICAL [...] in OV> 03/10/24 1004 DD/ 1237 TD/TT: Dry Cans Operator: ELAINE [facility] External Provider IMG US PROCEDURES Final Result * Hm Colonoscopy (07/18/2019 7:44 AM EDT) Historical Provider HEALTH MAINTENANCE Final Result documented in this encounter Visit Diagnoses Not on filedocumented in this encounter Additional Health Concerns Assessment Noted Time PHQ-9 Depression Total Score: 0 12/08/19 24 10:42 AM EST documented as of this encounter Care Teams Boat Oar Maker Relationship Specialty Start Date End Date Krysta Lockett FNP [address] [place] [phone] PCP - General Family Medicine 10/27/22 documented as of this encounter
--- OUTSIDE RECORDS SUMMARY | 2025-07-23 12:46 | XMS_ITS | Encounter Summary ---
Author Organization [employer] Address [address] [facility] [address] [place] [address] Care Team Providers Care Licensed Clinical Psychologist Name Role Phone [place] [facility] Primary Care Provider Encounter Details Date Type Department Care Team (Late st Contact Info) Description 09/01/2023 Abstract [facility] [address] [place], [place] [phone] [place] [facility] [address] [place] [address] Social History Tobacco Use Types Packs/Day Years [...] Description 08/08/2025 9:15 AM EDT Office Visit [facility] [address] [place] [address] Krysta Lockett FNP [address] [place] [address] documented as of this encounter Visit Diagnoses Not on filedocumented in this encounter Additional Health Concerns Assessment Noted Time PHQ-9 Depression Total Score: 0 12/21/19 23 10:22 AM EST documented as of this encounter Care Teams Licensed Clinical Psychologist Relationship Specialty Start Date End Date Krysta Lockett FNP [address] [place] [address] PCP - General Family Medicine 10/27/22 documented as of this encounter
--- OUTSIDE RECORDS SUMMARY | 2025-07-23 12:46 | XMS_ITS | Clinical Summary ---
Author Organization [employer] Address [address] [place] [address] [address] [place] [address] Care Team Providers Care Pill Coater Name Role Phone Krysta Lockett VETERINARY POULTRY INSPECTOR Primary Care Provider [phone] Allergies Active Allergy Reactions Criticality Noted Date [...] s:Chronic obstructive pulmonary disease, unspecified COPD type ([facility]) INHALE 1 PUFF TWICE DAILY. RINSE MOUTH AFTER USING. 60 each 01/28/20 24 Active glucose 4 g chewable tabletIndication s:Type 2 diabetes mellitus with hypoglycemia without coma, without long-term current use of insulin ([facility]) Chew 4 tablets (16 g) if needed for low blood sugar. 50 tablet 12 06/28/20 24 Active Diclofenac Sodium 1 % gelIndications:O ther chronic pain Apply topically to affected areas twice daily 150 g 06/28/20 24 Active Continuous Glucose Sensor (FreeStyle Iglesia 2 Sensor) miscIndications: Type 2 diabetes mellitus with hypoglycemia without coma, without long-term current use of insulin ([facility]) Apply 1 sensor every 14 days 2 each 2 06/30/20 24 Active Continuous Glucose Robotics Engineer (FreeStyle Iglesia 2 Dickinson) deviceIndication s:Type 2 diabetes mellitus with hypoglycemia without coma, without long-term current use of insulin ([facility]) Scan sensor every 8 hours 1 each 06/30/20 24 Active folic acid (Folvite) 1 MG tabletIndication s:Stage 3a chronic kidney disease ([facility]) TAKE 1 TABLET BY MOUTH EVERY MORNING [...] ONCE A WEEK DIRECTED 2 mL 1 06/22/20 25 Active Active Problems Problem Noted Date [...] no improvement -gave today to pt # [id number] of his vascular office to call and reschedule apt --I called today as well Dr Beckham's office and left my phone number for a call back from vascular -referred to cards to r/o cardiac etiology -tylenol prn x pain in legs -raise legs -continue use of pneumatic compression -alarm signs and symptoms explained Venous insufficiency 12/23/2022 Overview (12/23/2022): [place] [place] [facility] [place] Negative LE ultrasound 11/2022 [...] vein thrombosis) 12/15/2022 Overview (12/23/2022): [place] [facility] 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 [...] NSR no ischemic findings -referred today to medication administration professional x complete eval of echocardiogram x orthopnea [...] organization. Date Type Department Care Team Description 07/23/2025 Orders Only GENERIC EXTERNAL DATA DEPARTMENT Provider, Generic External Data 07/02/2025 Orders Only GENERIC EXTERNAL DATA DEPARTMENT Provider, Generic External Data 06/26/2025 Telephone [facility] [address] [place] [address] [place] [facility] Appointment Request 06/22/2025 Refill [facility] [address], [place] [phone] [facility] Type 2 diabetes mellitus with hypoglycemia without coma, without long-term current use of insulin ([facility]) 06/20/2025 Orders Only GENERIC EXTERNAL DATA DEPARTMENT Provider, Generic External Data 06/19/2025 Orders Only GENERIC EXTERNAL DATA DEPARTMENT Provider, Generic External Data 04/24/2025 Refill [facility] [address] [place] [address] [facility] Type 2 diabetes mellitus with hypoglycemia without coma, without long-term current use of insulin ([facility]) from Last 3 Months Immunizations Immunization Administration [...] Description 08/08/2025 9:15 AM EDT Office Visit [facility] [address], [place] [phone] [facility], [facility] [address] [place] [address] Health Maintenance Due Date Last Done Comments CT Colonography 1955 FIT DNA/Cologuard 1955 FIT 1955 FOBT 1955 Sigmoidoscopy 1955 Diabetes: Foot Exam 1966 Eye Exam 1966 Alcohol/Substance Use Screening 1968 Colonoscopy 07/18/2022 07/18/2019 Colorectal Cancer Screening 07/18/2022 COVID-19 Vaccine ( season) 2025 07/15/2024, 09/10/2023, 10/15/2021, Additional history exists Influenza Vaccine (#1) 2025 , 12/08/2023, 07/30/2022, Additional history exists Diabetes: Hemoglobin A1C 01/02/2026 025, 01/19/2025, 06/28/2024, Additional history exists Depression Screening 02/28/2026 02/28/2025, 02/29/20 25 SDOH Screening 02/28/2026 02/28/2025 Lipid Panel 03/01/2026 03/01/2025, 04/08, 12/15/2022, Additional history exists Tobacco Screening 03/26/2026 03/26/2025 Diabetes: Urine Protein Screening 07/02/2026 07/02/2025, 03/13/2024, 12/08/2023, Additional history exists DTaP/Tdap/Td Vaccines (3 - Td or Tdap) [...] TROPONIN I Routine 07/23/2025 8:50 AM EDT COMPREHENSIVE METABOLIC PANEL Routine 07/23/2025 8:50 AM EDT LIPASE Routine 07/23/2025 8:50 AM EDT CBC WITH AUTO DIFFERENTIAL Routine 07/23/2025 8:04 AM EDT CREATININE, SERUM Routine 07/02/2025 1:4 9 PM EDT UREA NITROGEN (BUN) Routine 07/02/2025 1 :49 PM EDT ELECTROLYTE PANEL Routine 07/02/2025 1:4 9 PM EDT HEMOGLOBIN A1C Routine 07/02/2025 1:49 PM EDT PROTEIN CREATININE RATIO, URINE Routine 07/02/2025 1:41 PM EDT GLUCOSE, WHOLE BLOOD Routine 06/20/2025 7:35 AM [...] WHOLE BLOOD Routine 06/19/2025 12:46 PM EDT LIPID PANEL, STANDARD Routine 03/01/2025 2:50 PM EDT Type 2 diabetes mellitus with hypoglycemia without coma, without long-term current use of insulin (CMS/HCC) HEPATITIS C AB W/REFL TO HCV RNA, QN, PCR Routine 12/15/2022 9:44 AM EST Healthcare maintenance HM COLONOSCOPY Routine 07/18/2019 7:44 AM EDT from Last 3 Months or Most Recently Relevant to Health Maintenance Results * (ABNORMAL) COVID-19 ID NOW (MEND[place]ZA) (07/23/2025 8:51 AM EDT) IDNOW SERIAL# [id number] [facility] COVID-19 TEST Positive (A) Negative [facility] COVID-19 NOTE See Note [facility] Comment: Results are for the identification of SARS-CoV2 RNA. TheSARS-CoV2 RNA is generally detectable in respiratory samplesduring the acute phase of infection. Positive results areindicative of the presence of SARS-CoV-2 RNA; clinicalcorrelation with patient history and other diagnosticinformation is necessary to determine patient infectionstatus. Positive results do not rule out bacterial infectionor co- infection with other viruses.Testing facilities within the [facility] and itsterritories are required to report all positive results [...] use by authorized laboratories.Testing performed on the Mendoza ID NOW utilizing NAAT. 07/23/2025 8:51 AM EDT 07/23/2025 8:55 AM EDT us Generic External Data Provider LAB MOLECULAR ALEA GNOSTICS ORDERABLES Final Result [facility] [address] [place] [phone] * High Sensitivity Troponin I (07/23/2025 8:50 AM EDT) [facility] TROPONIN I HIGH SENSITIVITY 4.3 <3.5 - 35.0 ng/L [facility] Comment:The Mendoza high sens itivity Troponin-I results should beused in conjunction with other diagnostic information suchas ECG, clinical observations and information, and patientsymptoms to aid in the diagnosis of ME. 07/23/2025 8:50 AM EDT 07/23/2025 8:55 AM EDT Generic External Data Provider LAB BLOOD ORDERAB LES Final Result [facility] [address] [place] [address] [phone] * Lipase (07/23/2025 8:50 AM EDT) [facility] Lipase 9 8 - 78 U/L [facility] 07/23/2025 8:50 AM EDT 07/23/2025 8:55 AM EDT Generic External Data Provider LAB BLOOD ORDERAB LES Final Result Performing Organization Address City/[facility]/ZIP Co de Phone Number [facility] [address] [place] [address] [phone] * (ABNORMAL) Comprehensive Metabolic Panel (07/23/2025 8:50 AM EDT) [facility] Sodium 141 135 - 145 mmol/L [facility] Potassium 4.0 3.3 - 5.1 mmol/L [facility] Chloride 106 96 - 108 mmol/L [facility] Carbon Dioxide 28 22 - 29 mmol/L [facility] Anion Gap 11(L) 12 - 20 [facility] Urea Nitrogen (BUN) 14 9 - 16 mg/dL [facility] Creatinine, Serum 1.39 0.5 - 1.4 mg/dL [facility] Creatinine Clr Calc Pharmacy 54.2 [facility] Comment:eGFR (calculated fro m the MDRD study equation) and eCrCl(calculated from the Cockcroft-Gault equation) are based ondifferent parameters and may not yield comparable results.If eCrCl result is absurd, please check patient'sheight/weight. Estimated Glomerular Filt Rate 51 [facility] Comment:Chronic Kidney Disea se: Estimated GFR < 60 mL/min/1.95a5Pnusez Kidney Disease: Estimated GFR < 15 mL/min/1.73m2 Glucose 79 60 - 115 mg/dL [facility] Calcium 8.4 8.4 - 10.2 mg/dL [facility] Bilirubin, Total 1.1(H) 0.0 - 1.0 mg/dL [facility] Aspartate Amino Transferase 38(H) 5 - 37 U/L [facility] Alanine Aminotransferase 38 0 - 40 U/L [facility] Total Protein 6.0(L) 6.5 - 8.0 g/dL [facility] Albumin Level 3.5 3.5 - 5.0 g/dL [facility] Alkaline Phosphatase 121(H) 39 - 117 U/L [facility] 07/23/2025 8:50 AM EDT 07/23/2025 8:55 AM EDT us Generic External Data Provider LAB BLOOD ORDERAB LES Final Result [facility] [address] [place] [address] [phone] * (ABNORMAL) CBC auto differential (07/23/2025 8:04 AM EDT) Only the most recent of2 resultswithin the time period is included. White Blood Count 5.0 4.8 - 10.8 X10*3/uL [facility] Red Blood Count 3.73(L) 4.60 - 5.80 X10*6/uL [facility] Hemoglobin 11.5(L) 14.0 - 18.0 g/dl [facility] Hematocrit 35.6(L) 42.0 - 52.0 % [facility] Mean Corpuscular Volume 95.4 80.0 - 98.0 fL [facility] Mean Corpuscular Hemoglobin 30.8 27.0 - 33.0 pg [facility] Mean Corpuscular HGB Conc 32.3 31.0 - 36.0 g/dl [facility] Red Cell Distribution Width 11.9 11.0 - 16.0 % [facility] Platelet Count 180 160 - 400 X10*3/uL [facility] Mean Platelet Volume 11.6 9.4 - 12.4 fL [facility] Neutrophils Percent Auto 70.4 45 - 73 % [facility] Imm Gran Pct Auto 0.4 0.0 - 0.4 % [facility] Lymphocytes Percent Auto 17.3(L) 20 - 40 % [facility] Monocytes Percent Auto 9.3 2 - 11 % [facility] Eosinophils Percent Auto 2.2 0 - 4 % [facility] Basophils Percent Auto 0.4 0 - 2 % [facility] NRBC Pct Auto 0.4(H) 0.0 - 0.2 /100WBC [facility] Neutrophils Absolute Auto 3.5 2.0 - 8.3 x10*3/uL [facility] Imm Gran Abs Auto 0.02 0.00 - 0.03 X10*3/uL [facility] Lymphocytes Absolute Auto 0.9(L) 1.2 - 4.9 X10*3/uL [facility] Monocytes Absolute Auto 0.5 0.1 - 1.2 X10*3/uL [facility] Eosinophils Absolute Auto 0.1 0.0 - 0.4 X10*3/uL [facility] Basophils Absolute Auto 0.0 0.0 - 0.2 X10*3/uL [facility] NRBC Abs Auto 0.020(H) 0.0 - 0.012 X10*3/uL [facility] 07/23/2025 8:04 AM EDT 07/23/2025 8:07 AM EDT Generic External Data Provider LAB BLOOD ORDERAB LES Edited Result - Final Performing Organization Address [facility] Co de Phone Number [facility] [address] [place] [phone] * Creatinine, Serum (07/02/2025 1:49 PM EDT) Creatinine, Serum 1.38 0.5 - 1.4 mg/dL [facility] Estimated Glomerular Filt Rate 51 [facility] Comment:Chronic Kidney Disea se: Estimated GFR < 60 mL/min/1.71y8Pnixpw Kidney Disease: Estimated GFR < 15 mL/min/1.73m2 07/02/2025 1:49 PM EDT 07/02/2025 1:49 PM EDT us Generic External Data Provider LAB BLOOD ORDERAB LES Final Result Performing Organization Address [facility] Co de Phone Number [facility] [address] [place] [phone] * BUN (Blood Urea Nitrogen) (07/02/2025 1:49 PM EDT) Urea Nitrogen (BUN) 16 9 - 16 mg/dL [facility] 07/02/2025 1:49 PM EDT 07/02/2025 1:49 PM EDT us Generic External Data Provider LAB BLOOD ORDERAB LES Final Result Performing Organization Address [facility]/ZIP Co de Phone Number [facility] [address] [place] [phone] * Hemoglobin A1c (07/02/2025 1:49 PM EDT) Hemoglobin A1c 5.1 <6.0 % [facility] Comment:Hemoglobin A1C Refer ence Range Adults: 4.8 - 6.0 % Non diabetic: < 6.0 % Goal: < 7.0 %Additional Action Suggested: > 8.0 %Note: Hemoglobin A1c results are invalid for patients with abnormal amounts of HbF. Blood transfusions may impact the HbA1c concentration in the patient sample. Estimated Average Glucose 100 mg/dL [facility] Comment:eAG = Estimated ave rage glucose which is %A1C expressed asaverage glucose, using the formula of the I6J-YabvxajYezdowv Glucose study (ADAG), Diabetes Care, Vol.31,#8,Jun. 2007 07/02/2025 1:49 PM EDT 07/02/2025 1:49 PM EDT Generic External Data Provider LAB BLOOD ORDERAB LES Final Result Performing Organization Address [facility] Co de Phone Number [facility] [address] [place] [phone] * Electrolyte Panel (07/02/2025 1:49 PM EDT) Sodium 142 135 - 145 mmol/L [facility] Potassium 4.0 3.3 - 5.1 mmol/L [facility] Chloride 107 96 - 108 mmol/L [facility] Carbon Dioxide 27 22 - 29 mmol/L [facility] Anion Gap 12 12 - 20 [facility] 07/02/2025 1:49 PM EDT 07/02/2025 1:49 PM EDT Generic External Data Provider LAB BLOOD ORDERAB LES Final Result Performing Organization Address [facility] de Phone Number [facility] [address] [place] [phone] * (ABNORMAL) Protein Creatinine Ratio, Urine (07/02/2025 1:41 PM EDT) Creatinine, Urine 259.64 mg/dL [facility] Protein, Total, Random Urine 23(H) <12 mg/dL [facility] Protein/Creati nine Ratio, Ur 0.09 <0.2 [facility] Comment:The spot urine prote in:creatinine ratio may increase to 0.3during normal . 07/02/2025 1:41 PM EDT 07/02/2025 2:19 PM EDT us Generic External Data Provider LAB URINE ORDERAB LES Final Result Performing Organization Address [facility] Co de Phone Number [facility] [address] [place] [phone] * (ABNORMAL) Glucose, Whole Blood (06/20/2025 7:35 AM EDT) Only the most recent of4 resultswithin the time period is included. Glucose, Whole Blood 133(H) 60 - 115 mg/dL [facility] Comment:METER #: [id number] 06/20/2025 7:35 AM EDT 06/20/2025 7:38 AM EDT us Generic External Data Provider LAB BLOOD ORDERAB LES Final Result Performing Organization Address [facility] Co de Phone Number [facility] [address] [place] [phone] * Slide Review (06/20/2025 5:09 AM EDT) Slide Review VERIFIED [facility] 06/20/2025 5:09 AM EDT 06/20/2025 5:43 AM EDT us Generic External Data Provider LAB BLOOD ORDERAB LES Final Result Performing Organization Address [facility] Co de Phone Number [facility] [address] [place] [phone] * (ABNORMAL) Hepatic Function Panel (06/20/2025 5:09 AM EDT) Bilirubin, Total 0.7 0.0 - 1.0 mg/dL [facility] Bilirubin, Direct 0.3 0.0 - 0.5 mg/dL [facility] Aspartate Amino Transferase 37 5 - 37 U/L [facility] Alanine Aminotransferase 25 0 - 40 U/L [facility] Total Protein 6.0(L) 6.5 - 8.0 g/dL [facility] Albumin Level 3.5 3.5 - 5.0 g/dL [facility] Alkaline Phosphatase 111 39 - 117 U/L [facility] 06/20/2025 5:09 AM EDT 06/20/2025 5:43 AM EDT us Generic External Data Provider LAB BLOOD ORDERAB LES Final Result [facility] [address] [place] [phone] * (ABNORMAL) Basic Metabolic Panel (06/20/2025 5:09 AM EDT) Only the most recent of2 resultswithin the time period is included. Sodium 138 135 - 145 mmol/L [facility] Potassium 5.0 3.3 - 5.1 mmol/L [facility] Chloride 105 96 - 108 mmol/L [facility] Carbon Dioxide 24 22 - 29 mmol/L [facility] Anion Gap 14 12 - 20 [facility] Urea Nitrogen (BUN) 20(H) 9 - 16 mg/dL [facility] Creatinine, Serum 1.12 0.5 - 1.4 mg/dL [facility] Creatinine Clr Calc Pharmacy 65.2 [facility] Comment:eGFR (calculated fro m the MDRD study equation) and eCrCl(calculated from the Cockcroft-Gault equation) are based ondifferent parameters and may not yield comparable results.If eCrCl result is absurd, please check patient'sheight/weight. Estimated Glomerular Filt Rate >60 [facility] Comment:Chronic Kidney Disea se: Estimated GFR < 60 mL/min/1.65b8Masuyv Kidney Disease: Estimated GFR < 15 mL/min/1.73m2 Glucose 154(H) 60 - 115 mg/dL [facility] Calcium 8.7 8.4 - 10.2 mg/dL [facility] 06/20/2025 5:09 AM EDT 06/20/2025 5:43 AM EDT Generic External Data Provider LAB BLOOD ORDERAB LES Final Result Performing Organization Address City/[facility] Co de Phone Number [facility] [address] [place] [phone] * (ABNORMAL) Hemoglobin and Hematocrit (06/19/2025 4:21 PM EDT) Hemoglobin 11.4(L) 14.0 - 18.0 g/dl [facility] Hematocrit 34.4(L) 42.0 - 52.0 % [facility] 06/19/2025 4:21 PM EDT 06/19/2025 4:24 PM EDT Summay External Data Provider LAB BLOOD ORDERAB LES Final Result Performing Organization Address [facility] de Phone Number [facility] [address] [place] [phone] * Gross and Microscopic Level 3 (06/19/2025 3:06 PM EDT) 06/19/2025 3:06 PM EDT 06/20/2025 8:35 AM EDT Narrative [facility] - 06/21/2025 3:22 PM EDT ----- ------- Name: Armando Ba Age/Sex: 70/M : 1955 [id number] [id number] Attend Dr: Lennox Solares MD Re06/19/25 Status: [facility] Location: [facility] Disch: ----- ------- SPEC : [id number] RECD: 06/20/25 STATUS: BARBRAThais DE LUNA NUM: [id number] VIOLETTA: 06/19/25-[address]: Lennox Solares MD ENTERED: 06/20/25 SP TYPE: Surgical OTHR DR: [facility] ORDERED: Gross Micro L3 Diagnosis Gallbladder, cholecystectomy: [...] measuring up to 0.15 cm in thickness. Financial Aid Administrator sections are submitted in a cassette labeled A1 to include the margin of resection of the cystic duct. CEDS IHC S/NG Disclaimer NOTE: Unless otherwise stated, all tissue is formalin-fixed and paraffin-embedded. Some or all of the immunohistochemical tests reported herein may have been developed and their performance characteristics determined by [facility]. They have not been cleared or [...] Armando Ba Age/Sex: 70/M : 1955 Unit#: [id number] Attend Dr: Lennox Solares MD Re06/19/25 Status: [facility] Location: [facility] Disch: ----- ------- SPEC : [id number] RECD: 06/20/25 STATUS: BARBRAThais CALIXTO NUM: [id number] VIOLETTA: 06/19/25-[address] [facility] [address]: Lennox Solares MD ENTERED: 06/20/25 SP TYPE: Surgical OTHR DR: [facility] ORDERED: Gross Micro L3 Copies To: [facility] [address] [place], [place] [phone] Lennox Solares MD [facility] Program [address] [place] [address] [phone] ----- ------- Signed (signature on file) Karina Giron MD 06/21/25 1522 ----- ------- END OF REPORT us Generic External Data Provider LAB CYTOLOGY DALLIN ZARCO Final Result [facility] [address] [place] [phone] * Lipid Panel, Standard (03/01/2025 2:50 PM EDT) Triglycerides 57 <150 mg/dL [facility] Comment:Desirable Triglyceri de: less than 150 mg/dLBorderline High Triglyceride 150-199 mg/dLHigh Triglyceride: 200-499 mg/dLVery High Triglyceride: greater than or equal to 5OO mg/dL Cholesterol 177 <200 mg/dL [facility] Comment:Desirable Cholestero l: less than 200 mg/dLBorderline High Cholesterol: 200-239 mg/dLHigh Cholesterol: greater than 239 mg/dL LDL Cholesterol Calculated 94 <100 mg/dL [facility] Comment:Desirable LDL: less than 100 mg/dLNear Optimal/Above Optimal LDL: 110- 129 mg/dLBorderline High LDL: 130-159 mg/dLHigh LDL: 160-189 mg/dLVery High LDL: greater than or equal to 190 mg/dL HDL Cholesterol 72 >40 mg/dL [facility] Comment:Desirable HDL: great er than 40 mg/dL Note: This HDL assay may give artificially low results in patients with liver disease. Blood Venous blood specimen / Unknown 03/01/2025 2:50 PM EDT 03/01/2025 3:55 PM EDT [facility] LAB BLOOD ORDERABLES Edited R esult - Final Performing Organization Address City/[facility]/ZIP Co de Phone Number [facility] [address] [place] [address] [phone] * Hepatitis C Antibody with Reflex to HCV, RNA, Quantitative, Real-Time PCR (12/15/2022 9:44 AM EST) Hepatitis C Antibody NON-REACT SIDDHARTH NON-REACT SIDDHARTH [employer] [facility] Index <0.02 <1.00 [facility] [place] [facility] Comment: HCV antibody was non-reactive. There is no laboratory evidence of HCV infection. In most cases, no further action is required. However, if recent HCV exposure is suspected, a test for HCV RNA (test code 62257) is suggested. For additional information please refer to http://education.IORevolution/faq/EOS55h9 (This link is being provided for informational/ educational purposes only.) Blood Venous blood specimen / Unknown 12/15/2022 9:44 AM EST 12/15/2022 9:45 AM EST Narrative [facility] - 12/16/2022 2:26 PM EST FASTING:UNKNOWN FASTING: UNKNOWN [facility] LAB BLOOD ORDERABLES Final Re sult Performing Organization Address City/[facility] Co de Phone Number [facility] [address] [facility] [place] [address] [facility] [place] [facility] [address] , ([address]) [place] [address] * Hm Colonoscopy (07/18/2019 7:44 AM EDT) Historical Provider HEALTH MAINTENANCE Final Result from Last 3 Months or Most Recently Relevant to Health Maintenance Insurance [employer] OPTIONS (HMO D-SNP) JUAN ASHBY [id number] Care Teams Pill Coater Relationship Specialty Start Date End Date Krysta Lockett FNP [address] [place] [address] PCP - General Family Medicine 10/27/22
--- OUTSIDE RECORDS SUMMARY | 2025-07-23 12:46 | XMS_ITS | Encounter Summary ---
Author Organization [email or web address] Address [address] [facility] 7t [place] [address] Care Team Providers Care Bodywork Therapist Name Role Phone [place] [facility] Primary Care Provider [phone] Encounter Details Date Type Department Care Team (Late st Contact Info) Description 07/19/2024 Orders Only [facility] [address] [place], [place] [phone] [facility] [address] [place] [address] Social History Tobacco Use Types Packs/Day Years [...] Description 08/08/2025 9:15 AM EDT Office Visit [facility] [address] [place] [address] Krysta Lockett FNP [address] [place] [address] documented as of this encounter Visit Diagnoses Not on filedocumented in this encounter Additional Health Concerns Assessment Noted Time PHQ-9 Depression Total Score: 0 12/08/19 24 10:42 AM EST documented as of this encounter Care Teams Bodywork Therapist Relationship Specialty Start Date End Date Krysta Lockett FNP [address] [place] [address] PCP - General Family Medicine 10/27/22 documented as of this encounter
--- OUTSIDE RECORDS SUMMARY | 2025-07-23 12:46 | XMS_ITS | Encounter Summary ---
Author Organization [employer] Address [address] [facility] 7t [place] [address] Care Team Providers Care Hop Farmer Name Role Phone [place] [facility] Primary Care Provider [phone] Reason for Visit * Reason Comments Med Refill Encounter Details Date Type Department Care Team ([facility] st Contact Info) Description 11/01/2023 Refill [facility] [address] [place], [place] [phone] [facility] [address] [place] [address] Dyspepsia Social History Tobacco Use Types Packs/Day [...] Description 08/08/2025 9:15 AM EDT Office Visit [facility] [address] [place] [address] Krysta Lockett FNP [address] [place] [address] documented as of this encounter Visit Diagnoses Diagnosis Dyspepsia Dyspepsia and other specified disorders of function of stomach documented in this encounter Additional Health Concerns Assessment Noted Time PHQ-9 Depression Total Score: 0 12/21/19 23 10:22 AM EST documented as of this encounter Care Teams Hop Farmer Relationship Specialty Start Date End Date Krysta Lockett FNP [address] [place] [address] PCP - General Family Medicine 10/27/22 documented as of this encounter
--- OUTSIDE RECORDS SUMMARY | 2025-07-23 12:46 | XMS_ITS | Clinical Summary ---
Author Organization [facility] ity Address [address] [place] [address] Care Team Providers Care Fisheries Inspector Name Role Phone Unavailable Primary Care Provider [...] 2006 Zoster Vaccines (1 of 2) 2006 Depression Screening 11/08/2024 COVID-19 Vaccine (1 - 2023-2 5 season) 2025 Influenza Vaccine (#1) 2025 RSV Immunization Adult [...]
--- OUTSIDE RECORDS SUMMARY | 2025-07-23 12:46 | XMS_ITS | Encounter Summary ---
Author Organization [employer] [facility] Address [address] [place] [address] 7[address] [place] [address] Care Team Providers Care Fuel Quality Tech Name Role Phone [place] [facility] Primary Care Provider [phone] Encounter Details Date Type Department Care Team (Late st Contact Info) Description 11/18/2022 Orders Only [facility] [address] [place] [id number] Amanda Haynes LPN Social History Tobacco Use [...] Description 08/08/2025 9:15 AM EDT Office Visit [facility] [address] [place] [phone] Krysta Lockett [facility] [address] [place] [address] documented as of this encounter Visit Diagnoses Not on filedocumented in this encounter Care Teams Fuel Quality Tech Relationship Specialty Start Date End Date Krysta Lockett FNP [address] [place] [address] PCP - General Family Medicine 10/27/22 documented as of this encounter
--- OUTSIDE RECORDS SUMMARY | 2025-07-23 12:46 | XMS_ITS | Encounter Summary ---
Author Organization [employer] Address [address] [place] [address] 7t [place] [address] Care Team Providers Care Illuminator Name Role Phone Roberto Carlos Coleman MD Primary Care Provider Unava ilissa [place] [facility] Primary Care Provider [phone] Encounter Details Date Type Department Care Team (Latest Contact Info) Description 12/01/2019 Abstract [facility] CONVERSIONS Dental, Provider, DDS Social [...] Description 08/08/2025 9:15 AM EDT Office Visit [facility] [address] [place] [address] [place] [facility] [address] [place] [address] documented as of this encounter Visit Diagnoses Not on filedocumented in this encounter Care Teams Illuminator Relationship Specialty Start Date End Date Roberto Carlos Coleman MD PCP - General Family Medicine 04/19/20 10/26/22 Krysta Lockett [facility] [address] [place] [address] PCP - General Family Medicine 10/27/22 documented as of this encounter
--- OUTSIDE RECORDS SUMMARY | 2025-07-23 12:46 | XMS_ITS | Clinical Summary ---
Author Organization [facility] Address [address] [address] Care Team Providers Care Locomotive Firer/Fireman Name Role Phone Unavailable Primary Care Provider [...] % PVNMA 08/21/2020 us [facility] [id number] LICITED RESULTS Final Result PVNMA from Last 3 Months or Most Recently Relevant to Health Maintenance Insurance Medicaid [place] Medicare Medicaid [place] Medicare
== END 2025-07-23 11:04 | disposition home or self-care (01) ==
PROVIDERS: Emergency Provider Emergency Medicine
DX: U07.1 COVID-19 (principal); R07.89 Other chest pain; M79.10 Myalgia, unspecified site; M54.50 Low back pain, unspecified; R11.0 Nausea; Z79.899 Other long term (current) drug therapy; Z87.891 Personal history of nicotine dependence
CPT/HCPCS: 36415; 71046; 80053; 83690; 84484; 85025; 87635; 93005; 96361; 96374; 99284; 99285; J0131

== ENCOUNTER → 2025-07-23 07:57 | Outpatient (BNV) | payer OTHER, SELFPAY | PROVIDERS: Emergency Provider Emergency Medicine; Visit Provider Internal Medicine | DX: R07.9 Chest pain, unspecified (principal) | CPT/HCPCS: 93010 ==

== ENCOUNTER → 2025-07-23 08:23 | Outpatient (BNV) | payer OTHER, SELFPAY | PROVIDERS: Emergency Provider Emergency Medicine; Visit Provider Radiology Diagnostic Radiology | DX: R53.1 Weakness (principal) | CPT/HCPCS: 71046 ==

== ENCOUNTER 2025-07-24 16:14 | Emergency (ER) | payer OTHER, SELFPAY ==
--- NOTE | ~2025-07-24 | XR_ITS ---
CLINICAL HISTORY: chest pain 2 view chest x-ray Comparison: CR/SR - XR CHEST 2 VIEWS - 07/23/25 09:18 EDT Findings: No consolidation or effusion. Heart size is normal. No acute fracture. IMPRESSION: 1. No acute findings. This document has been electronically signed by: Maryellen Lorenzana MD on 07/24/2025 17:19:44
[2025-07-24 16:26] VITALS: BP 166/90; PULSE 66; O2SAT 99
[2025-07-24 16:45] VITALS: BP 145/69; PULSE 69; RESP 18; TEMP 37; O2SAT 99; BMI 30.2
--- NOTE | 2025-07-24 16:49 | ED.GENADULT ---
HPI - General Adult General Chief complaint: Weakness Stated complaint: covid wants eval Time Seen by Provider: 07/24/25 16:48 Source: patient Mode of arrival: ambulatory Limitations: language barrier History of Present Illness ED Provider: Dr. Awad HPI narrative: 70-year-old male history of recent COVID infection, CKD, DVT on Eliquis presented hospital today for evaluation of syncopal episode. The patient stated that he is not feeling well. He is having fatigue and weakness. He has been having some productive coughing as well. He does complain of some shortness of breath. Patient stated that he did have a syncopal episode denies any head trauma. Related Data Home Medications ?Medication ?Instructions ?Recorded ?Confirmed atorvastatin 20 mg tablet 20 mg PO BEDTIME 11/04/20 07/02/25 ascorbic acid (vitamin C) 250 mg 250 mg PO QAM 04/23/21 07/02/25 tablet pen needle, diabetic 32 gauge x #50 ea 04/23/21 07/02/25 tiotropium bromide 18 mcg capsule 1 cap inhalation DAILY 04/23/21 07/02/25 with inhalation device celebrate MVI PO DAILY 04/20/22 07/02/25 omeprazole 20 mg capsule,delayed 20 mg PO DAILY 07/28/22 07/02/25 release nebulizers 03/09/23 07/02/25 apixaban 5 mg tablet (Eliquis) 5 mg PO BID 05/02/24 07/02/25 Held on 06/19/25. Instructions: Until discussed with Dr. Solares midodrine 2.5 mg tablet 2.5 mg PO 05/02/24 07/02/25 trazodone 100 mg tablet 100 mg PO BEDTIME 05/02/24 07/02/25 folic acid 1 mg tablet 1 mg PO QAM 05/19/24 07/02/25 dulaglutide 0.75 mg/0.5 mL mg subcut .QMONDAY 06/18/25 07/02/25 subcutaneous pen inject[facility] Previous Rx's ?Medication ?Instructions ?Recorded ipratropium 0.5 mg-albuterol 3 mg 3 ml inhalation Q6H PRN shortness 09/12/20 (2.5 mg base)/3 mL nebulization of breath or wheezing #15 mL soln acetaminophen 500 mg tablet 1,000 mg (2 x 500 mg) PO Q6H PRN 06/16/21 (Tylenol Extra Strength) pain #30 tabs albuterol sulfate 90 mcg/actuation 2 inh inhalation Q6H PRN shortness 03/09/23 aerosol inhaler of breath or wheezing 30 days #18 grams simethicone 80 mg chewable tablet 80 mg PO BID-QID PRN abdominal 01/13/24 (Gas Relief (simethicone)) distention #90 tabs cholecalciferol (vitamin D3) 50 50 mcg PO DAILY #90 caps 08/07/24 mcg (2,000 unit) capsule fluticasone fur. 100 mcg-umeclid 1 inh inhalation DAILY 30 days #60 08/07/24 62.5 mcg-vilant 25 mcg ea inhalat.powder (Trelegy Ellipta) vitamin A palmitate 3,000 mcg 10,000 unit PO DAILY #90 caps 10/23/24 (10,000 unit) capsule zinc gluconate 30 mg tablet 30 mg PO DAILY #90 tabs 10/23/24 fondaparinux 2.5 mg/0.5 mL 2.5 mg (0.5 mL) subcut Q24H #5 mL 06/13/25 subcutaneous solution syringe Held on 06/19/25. Instructions: Until discussed with Dr. Solares ipratropium 0.5 mg-albuterol 3 mg 3 ml inhalation BID #1,620 mL 06/13/25 (2.5 mg base)/3 mL nebulization soln ondansetron 4 mg disintegrating 4 mg PO Q12H nausea and vomiting 06/13/25 tablet #20 tabs azithromycin 250 mg tablet See Rx Instructions PO .COMPLEX #6 07/24/25 (Zithromax) tabs benzonatate 200 mg capsule 200 mg PO TID PRN cough #20 caps 07/24/25 prednisone 20 mg tablet 40 mg (2 x 20 mg) PO DAILY 5 days 07/24/25 #10 tabs Allergies Allergy/AdvReac Type Severity Reaction Status Date / Time aspirin (Aspirin) Allergy Mild SWELLING Verified 07/24/25 16:46 Penicillins Allergy Mild SWELLING Verified 07/24/25 16:46 NSAIDS (Non-Steroidal Allergy Unknown Verified 07/24/25 16:46 Anti-Inflamma Review of Systems Review of Systems: Pertinent review of systems as mentioned in HPI. All other system otherwise negative. [facility] Past Medical History [facility] Narrative: Medical history as mentioned in HPI Medical History Anticoagulation overlap therapy not prescribed at discharge Chronic restrictive lung disease Pulmonary nodules COVID-19 vaccine series completed Arthritis Asthma Vitamin D deficiency HLD (hyperlipidemia) T2DM (type 2 diabetes mellitus) Anxiety Depression Venous insufficiency Hypertension COPD (chronic obstructive pulmonary disease) Surgical History History of repair of hiatal hernia Status post laparoscopic sleeve gastrectomy (06/2021) History of esophagogastroduodenoscopy (EGD) History of umbilical hernia repair H/O colonoscopy with polypectomy Family History Family History Father CVD (cardiovascular disease) Heart disease Mother Heart disease CVD (cardiovascular disease) Brother Cancer Brother Cancer Brother Heart attack Sister CVD (cardiovascular disease) Diabetes mellitus Hypertension Arthritis Social History Social History Household Members Other:: daughter Are you a primary transitions rn care coordinator to a significant other at home: No Do you presently have visiting nurse or other home services: Yes (SUPERVISOR DECORATING-daughter) Alcohol intake: current Alcohol intake frequency: holidays/special occasions only Comment: no facial grimacing, medicated in pacu numerous times, pain scale explained Patient Tobacco Use Status: Former Tobacco user Tobacco use type: Cigarette Smoked in Last 30 Days: No Use of substances other than those prescribed or required for medical reasons: No Advance Directives: Yes Advance Directives on File: Yes Advance Directives Date on File: 07/23/25 service: No Current occupational status: unemployed Physical Exam ED Exam Exam: General: Pleasant, no distress, interacting appropriately Head: Normacephalic, atraumatic ENT: oral mucosa moist, neck supple, no tracheal deviation Cardiovascular: regular rate, regular rhythm, no murmurs, rubbing, gallops Respiratory: CTAB, no wheeze, rales, rhonchi Gastrointestinal: Soft, non distended, non tender, non guarding Extremities: Trace edema bilateral lower extremities Neurological: Awake and alert, no facial droop noted Skin: Warm and dry Psychiatric: Appropriate mood and thoughts Vital Signs: Vital Signs - 24 hr 07/24/25 16:45 07/24/25 16:50 Temperature 98.6 F 98.6 F Pulse Rate 69 69 Respiratory Rate 18 18 Blood Pressure 145/69 H 145/69 H Pulse Oximetry 99 99 Oxygen Delivery Method Room Air Room Air BMI result Body Mass Index 30.2 Medications Administered Discontinued Medications Generic Name Dose Route Start Last Admin Trade Name Freq PRN Reason Stop Dose Admin Lactated Ringer's 1,000 mls @ 999 mls/hr 07/24/25 17:00 07/24/25 18:36 Lr IV 07/24/25 18:00 Infused .Q1H1M ROSS Infusion Medical Decision Making Medical Decision Making [facility] Narrative: This is a 70-year-old male history of COVID, on Eliquis for DVT presented hospital today for evaluation of syncopal episode. Patient is not hypoxic or tachycardic here. He is taking the Eliquis. I do not think this is PE in nature that may have caused his syncopal episode. We will pursue a cardiac workup at this time including EKG basic lab work with troponin. Patient states he feels regular. He does complain of some coughing with some shortness of breath as well. Patient's CBC does show some signs of leukopenia. He does have slight anemia at 11.5. This is similar to his previous lab work. Patient chemistry was unremarkable. I did give patient a bolus IV fluid. Patient's troponin is negative here. Chest x-ray is negative. No sign of STEMI on EKG. Patient was ambulated without any signs of hypoxia. Does not appear to be tachypneic. At this time we will plan to discharge patient home with a course of prednisone, Z-Yan, Tessalon Perles for his coughing. Return precautions provided the patient. Patient agrees and understands this plan. In-person health information managers was used for this encounter. Differential Diagnosis Differential Diagnoses: The differential diagnosis associated with the presentation includes COVID, PE, pneumothorax, cardiac arrhythmia Admission/Observation Consideration of admission/observation: Escalation of care including admission/observation considered Lab Data [facility] Lab Attestation statement: I reviewed the patient's lab results. 07/24/25 17:20 07/24/25 17:20 Labs: Lab Results 07/24/25 Range/Units 17:20 WBC 3.0 L (4.8-10.8) X10*3/uL RBC 3.68 L (4.60-5.80) X10*6/uL Hgb 11.5 L (14.0-18.0) g/dl Hct 35.3 L (42.0-52.0) % MCV 95.9 (80.0-98.0) fL MCH 31.3 (27.0-33.0) pg MCHC 32.6 (31.0-36.0) g/dl RDW 11.8 (11.0-16.0) % Plt Count 128 L D (160-400) X10*3/uL MPV 10.6 (9.4-12.4) fL Immature Gran % (Auto) 0.3 (0.0-0.4) % Neut % (Auto) 39.9 L (45-73) % Lymph % (Auto) 32.7 (20-40) % [place] % (Auto) 12.2 H (2-11) % Eos % (Auto) 14.2 H (0-4) % Baso % (Auto) 0.7 (0-2) % Lymph # (Auto) 1.0 L (1.2-4.9) X10*3/uL [place] # (Auto) 0.4 (0.1-1.2) X10*3/uL Eos # (Auto) 0.4 (0.0-0.4) X10*3/uL Baso # (Auto) 0.0 (0.0-0.2) X10*3/uL Abs Immat Gran (auto) 0.01 (0.00-0.03) X10*3/uL Absolute Neuts (auto) 1.2 L (2.0-8.3) x10*3/uL Absolute Nucleated RBC 0.000 (0.0-0.012) X10*3/uL Nucleated RBC % (auto) 0.0 (0.0-0.2) /100WBC Sodium 144 (135-145) mmol/L Potassium 3.9 (3.3-5.1) mmol/L Chloride 110 H (96-108) mmol/L Carbon Dioxide 29 (22-29) mmol/L Anion Gap 9 L (12-20) BUN 15 (9-16) mg/dL Creatinine 1.30 (0.5-1.4) mg/dL Estim Creat Clear Calc 54.7 Estimated GFR 55 Random Glucose 150 H (60-115) mg/dL Calcium 8.4 (8.4-10.2) mg/dL Magnesium 2.0 (1.6-2.6) mg/dL Troponin I High Sens < 2.7 (<3.5-35.0) ng/L Independent Interpretation I performed an independent interpretation of an: Plain X-Ray Radiology Impression Discussion of test interpretation with radiology: I have reviewed the radiologist's reading. Chronic Conditions Patient?s care impacted by: Hypertension Discharge Plan Discharge Clinical Impression: COVID Patient Disposition: Home, Self-Care Prescriptions: New benzonatate 200 mg capsule 200 mg PO TID PRN (Reason: cough) Qty: 20 0RF azithromycin [Zithromax] 250 mg tablet See Rx Instructions .ROUTE .COMPLEX Qty: 6 0RF Rx Instructions: For 250 mg dose pack: take 500 mg today (day 1), then 250 mg for 4 days (days 2-5) prednisone 20 mg tablet 40 mg PO DAILY 5 Days Qty: 10 0RF No Action Trelegy Ellipta 100-62.5-25 mcg blister with device 1 inh inhalation DAILY 30 Days Qty: 60 11RF cholecalciferol (vitamin D3) 50 mcg (2,000 unit) capsule 50 mcg PO DAILY Qty: 90 3RF vitamin A palmitate 3,000 mcg (10,000 unit) capsule 10,000 unit PO DAILY Qty: 90 3RF zinc gluconate 30 mg tablet 30 mg PO DAILY Qty: 90 3RF ipratropium-albuterol 0.5 mg-3 mg(2.5 mg base)/3 mL solution for nebulization 3 ml inhalation BID Qty: 1620 0RF ipratropium-albuterol 0.5 mg-3 mg(2.5 mg base)/3 mL solution for nebulization 3 ml inhalation Q6H PRN (Reason: shortness of breath or wheezing) Qty: 15 0RF Trulicity 0.75 mg/0.5 mL pen injector subcut .QMONDAY atorvastatin 20 mg tablet 20 mg PO BEDTIME acetaminophen [Tylenol Extra Strength] 500 mg tablet 1,000 mg PO Q6H PRN (Reason: pain) Qty: 30 1RF tiotropium bromide 18 mcg capsule, w/inhalation device 1 cap inhalation DAILY ascorbic acid (vitamin C) 250 mg tablet 250 mg PO QAM (DME) pen needle, diabetic 32 gauge x 5/32 needle See Rx Instructions .ROUTE .MEDSUPPLY Qty: 50 Rx Instructions: As directed celebrate MVI PO DAILY (DME) nebulizers Misc See Rx Instructions .Route Rx Instructions: As directed albuterol sulfate 90 mcg/actuation HFA aerosol inhaler 2 inh inhalation Q6H PRN (Reason: shortness of breath or wheezing) 30 Days Qty: 18 12RF omeprazole 20 mg capsule,delayed release(DR/EC) 20 mg PO DAILY simethicone [Gas Relief (simethicone)] 80 mg tablet,chewable 80 mg PO BID-QID PRN (Reason: abdominal distention) Qty: 90 3RF folic acid 1 mg tablet 1 mg PO QAM Eliquis 5 mg tablet 5 mg PO BID trazodone 100 mg tablet 100 mg PO BEDTIME midodrine 2.5 mg tablet 2.5 mg PO fondaparinux 2.5 mg/0.5 mL syringe 2.5 mg subcut Q24H Qty: 5 0RF ondansetron 4 mg tablet,disintegrating 4 mg PO Q12H Qty: 20 0RF Print Language: [place] Irish
[2025-07-24 16:50] VITALS: BP 145/69; PULSE 69; RESP 18; TEMP 37; O2SAT 99
--- NOTE | 2025-07-24 16:55 | PC.NURSE ---
70 M presents to ED with ? syncope from couch. A+Ox4, calm, cooperative. Pt is COVID +, was here yesterday. Pt c/o CP 9/10, nausea, and diarrhea x 3 today. Pt unsteady on his feet, uses cane, walker, and wheelchair. Pt denies any injuries from the syncope episode.
--- NOTE | 2025-07-24 16:57 | ECG_ITS ---
Test Reason : SYNCOPE Blood Pressure : */* mmHG Vent. Rate : 61 BPM Atrial Rate : 61 BPM P-R Int : 164 ms QRS Dur : 84 ms QT Int : 422 ms P-R-T Axes : 65 59 55 degrees QTcB Int : 424 ms Normal sinus rhythm Normal ECG When compared with ECG of 23-Jul-2025 08:06, No significant change was found Referred By: Yuly Awad Electronically Signed By: SOFIA SIMMONS
[2025-07-24] MEDS: Lactated Ringers 1,000 ML 999 ML IV (17:23)
[2025-07-24 17:36] LABS: MANUAL DIFF FLAG NO
[2025-07-24 17:46] LABS: Hematocrit 35.3 % (42.0-52.0); Hemoglobin 11.5 g/dl (14.0-18.0); Imm Gran Abs Auto 0.01 X10*3/uL (0.00-0.03); Imm Gran Pct Auto 0.3 % (0.0-0.4); Lymphocytes Absolute Auto 1.0 X10*3/uL (1.2-4.9); Mean Corpuscular HGB Conc 32.6 g/dl (31.0-36.0); Mean Corpuscular Hemoglobin 31.3 pg (27.0-33.0); Mean Corpuscular Volume 95.9 fL (80.0-98.0); NRBC Abs Auto 0.000 X10*3/uL (0.0-0.012); NRBC Pct Auto 0.0 /100WBC (0.0-0.2); Platelet Count 128 X10*3/uL (160-400); Red Blood Count 3.68 X10*6/uL (4.60-5.80); White Blood Count 3.0 X10*3/uL (4.8-10.8)
[2025-07-24 18:00] LABS: Anion Gap 9 (12-20); Blood Urea Nitrogen 15 mg/dL (9-16); Calcium 8.4 mg/dL (8.4-10.2); Carbon Dioxide 29 mmol/L (22-29); Chloride 110 mmol/L (96-108); Creatinine Clr Calc Pharmacy 54.7; Estimated Glomerular Filt Rate 55; Magnesium 2.0 mg/dL (1.6-2.6); Potassium 3.9 mmol/L (3.3-5.1); Sodium 144 mmol/L (135-145)
[2025-07-24 18:11] LABS: Troponin-I High Sensitivity < 2.7 ng/L (<3.5-35.0)
--- OUTSIDE RECORDS SUMMARY | 2025-07-24 19:14 | XMS_ITS | Encounter Summary ---
Author Organization [employer] Address [address] [facility] 7t [place] [address] Care Team Providers Care Cell Biology Scientist Name Role Phone Krysta Lockett HEAD INSPECTOR AND CENTER MARKER Primary Care Provider [phone] Encounter Details Date Type Department Care Team ([facility] st Contact Info) Description 07/23/2025 Orders Only [...] Description 08/08/2025 9:15 AM EDT Office Visit [facility] [address] [place], [place] [phone] [facility] [address] [place] [address] documented as of this encounter Procedures Procedure [...] (MENDOZA) (07/23/2025 8:51 AM EDT) IDNOW SERIAL# [id number] [facility] COVID-19 TEST Positive (A) Negative [facility] COVID-19 NOTE See Note [facility] Comment: Results are for the identification of SARS-CoV2 RNA. TheSARS-CoV2 RNA is generally detectable in respiratory samplesduring the acute phase of infection. Positive results areindicative of the presence of SARS-CoV-2 RNA; clinicalcorrelation with patient history and other diagnosticinformation is necessary to determine patient infectionstatus. Positive results do not rule out bacterial infectionor co- infection with other viruses.Testing facilities within the [place] and [facility] are required to report all [...] use by authorized laboratories.Testing performed on the [employer] ID NOW utilizing NAAT. 07/23/2025 8:51 AM EDT 07/23/2025 8:55 AM EDT Generic External Data Provider LAB MOLECULAR ALEA GNOSTICS ORDERABLES Final Result Performing Organization Address [facility]/ZIP Co de Phone Number [facility] [address] [place] [phone] * High Sensitivity Troponin I (07/23/2025 8:50 AM EDT) TROPONIN I HIGH SENSITIVITY 4.3 <3.5 - 35.0 ng/L [facility] Comment:The Mendoza high sens itivity Troponin-I results should beused in conjunction with other diagnostic information suchas ECG, clinical observations and information, and patientsymptoms to aid in the diagnosis of [place]. 07/23/2025 8:50 AM EDT 07/23/2025 8:55 AM EDT us Generic External Data Provider LAB BLOOD ORDERAB LES Final Result Performing Organization Address [facility]/ZIP Co de Phone Number [facility] [address] [place] [phone] * (ABNORMAL) Comprehensive Metabolic Panel (07/23/2025 8:50 AM EDT) Sodium 141 135 - 145 mmol/L [facility] Potassium 4.0 3.3 - 5.1 mmol/L [facility] Chloride 106 96 - 108 mmol/L [facility] Carbon Dioxide 28 22 - 29 mmol/L [facility] Anion Gap 11(L) 12 - 20 [facility] Urea Nitrogen (BUN) 14 9 - 16 mg/dL [facility] Creatinine, Serum 1.39 0.5 - 1.4 mg/dL [facility] Creatinine Clr Calc Pharmacy 54.2 [facility] Comment:eGFR (calculated fro m the MDRD study equation) and eCrCl(calculated from the Cockcroft-Gault equation) are based ondifferent parameters and may not yield comparable results.If eCrCl result is absurd, please check patient'sheight/weight. Estimated Glomerular Filt Rate 51 [facility] Comment:Chronic Kidney Disea se: Estimated GFR < 60 mL/min/1.10b7Phhgri Kidney Disease: Estimated GFR < 15 mL/min/1.73m2 Glucose 79 60 - 115 mg/dL [facility] Calcium 8.4 8.4 - 10.2 mg/dL [facility] Bilirubin, Total 1.1(H) 0.0 - 1.0 mg/dL [facility] Aspartate Amino Transferase 38(H) 5 - 37 U/L [facility] Alanine Aminotransferase 38 0 - 40 U/L [facility] Total Protein 6.0(L) 6.5 - 8.0 g/dL [facility] Albumin Level 3.5 3.5 - 5.0 g/dL [facility] Alkaline Phosphatase 121(H) 39 - 117 U/L [facility] 07/23/2025 8:50 AM EDT 07/23/2025 8:55 AM EDT us Generic External Data Provider LAB BLOOD ORDERAB LES Final Result [facility] [address] [place] [phone] * Lipase (07/23/2025 8:50 AM EDT) Pathologist [facility] Lipase 9 8 - 78 U/L [facility] 07/23/2025 8:50 AM EDT 07/23/2025 8:55 AM EDT Generic External Data Provider LAB BLOOD ORDERAB LES Final Result [facility] [address] [place] [phone] * (ABNORMAL) CBC auto differential (07/23/2025 8:04 AM EDT) [facility] White Blood Count 5.0 4.8 - 10.8 X10*3/uL [facility] Red Blood Count 3.73(L) 4.60 - 5.80 X10*6/uL [facility] Hemoglobin 11.5(L) 14.0 - 18.0 g/dl [facility] Hematocrit 35.6(L) 42.0 - 52.0 % [facility] Mean Corpuscular Volume 95.4 80.0 - 98.0 fL [facility] Mean Corpuscular Hemoglobin 30.8 27.0 - 33.0 pg [facility] Mean Corpuscular HGB Conc 32.3 31.0 - 36.0 g/dl [facility] Red Cell Distribution Width 11.9 11.0 - 16.0 % [facility] Platelet Count 180 160 - 400 X10*3/uL [facility] Mean Platelet Volume 11.6 9.4 - 12.4 fL [facility] Neutrophils Percent Auto 70.4 45 - 73 % [facility] Imm Gran Pct Auto 0.4 0.0 - 0.4 % [facility] Lymphocytes Percent Auto 17.3(L) 20 - 40 % [facility] Monocytes Percent Auto 9.3 2 - 11 % [facility] Eosinophils Percent Auto 2.2 0 - 4 % [facility] Basophils Percent Auto 0.4 0 - 2 % [facility] NRBC Pct Auto 0.4(H) 0.0 - 0.2 /100WBC [facility] Neutrophils Absolute Auto 3.5 2.0 - 8.3 x10*3/uL [facility] Imm Gran Abs Auto 0.02 0.00 - 0.03 X10*3/uL [facility] Lymphocytes Absolute Auto 0.9(L) 1.2 - 4.9 X10*3/uL [facility] Monocytes Absolute Auto 0.5 0.1 - 1.2 X10*3/uL [facility] Eosinophils Absolute Auto 0.1 0.0 - 0.4 X10*3/uL [facility] Basophils Absolute Auto 0.0 0.0 - 0.2 X10*3/uL [facility] NRBC Abs Auto 0.020(H) 0.0 - 0.012 X10*3/uL [facility] 07/23/2025 8:04 AM EDT 07/23/2025 8:07 AM EDT us Generic External Data Provider LAB BLOOD ORDERAB LES Edited Result - Final [facility] [address] [place] [phone] documented in this encounter Visit Diagnoses Not on filedocumented in this encounter Additional Health Concerns Assessment Noted Time PHQ-9 Depression Total Score: 6 02/29/20 25 11:37 AM EDT documented as of this encounter Care Teams Cell Biology Scientist Relationship Specialty Start Date End Date Krysta Lockett FNP [address] [place] [phone] PCP - General Family Medicine 10/27/22 documented as of this encounter
--- OUTSIDE RECORDS SUMMARY | 2025-07-24 19:14 | XMS_ITS | Encounter Summary ---
Author Organization [employer] Address [address] [facility] 7t [place] [address] Care Team Providers Care Hoof And Shoe Inspector Name Role Phone Krysta Lockett BROADCAST TECHNICIAN Primary Care Provider [phone] Reason for Visit * Reason Comments Med Refill Encounter Details Date Type Department Care Team (Late Contact Info) Description 11/24/2022 Refill [facility]INE [address] [place], [place] [phone] Chey Multani MD [address] [place] [address] Social History Tobacco Use Types Packs/Day Years [...] rx for persistent orthostatic hypotension. T/C to [facility] pharmacy. Zeinab states that pt has been getting med boxes regularly and is due for med box delivery tomorrow. documented in this encounter Plan of Treatment Upcoming Encounters Date Type Department Care Team (Late Contact Info) Description 08/08/2025 9:15 AM EDT Office Visit [facility] MED[facility] [address] [place] [address] Krysta Lockett FNP [address] [place] [address] documented as of this encounter Visit Diagnoses Not on filedocumented in this encounter Care Teams Hoof And Shoe Inspector Relationship Specialty Start Date End Date Krysta Lockett FNP [address] [place] [phone] PCP - General Family Medicine 10/27/22 documented as of this encounter
--- OUTSIDE RECORDS SUMMARY | 2025-07-24 19:14 | XMS_ITS | Encounter Summary ---
Author Organization [employer] Address [address] [facility] 7t [place] [address] Care Team Providers Care Hourly Shift Name Role Phone [facility] Primary Care Provider [phone] Reason for Visit * Reason Comments Med Refill Encounter Details Date Type Department Care Team ([facility] st Contact Info) Description 11/01/2023 Refill [facility] [address] [place], [place] [phone] [facility] [address] [place] [address] Dyspepsia Social History Tobacco Use Types Packs/Day [...] Description 08/08/2025 9:15 AM EDT Office Visit [facility] [address] [place] [address] Krysta Lockett FNP [address] [place] [address] documented as of this encounter Visit Diagnoses Diagnosis Dyspepsia Dyspepsia and other specified disorders of function of stomach documented in this encounter Additional Health Concerns Assessment Noted Time PHQ-9 Depression Total Score: 0 12/21/19 23 10:22 AM EST documented as of this encounter Care Teams Hourly Shift Relationship Specialty Start Date End Date Krysta Lockett FNP [address] [place] [address] PCP - General Family Medicine 10/27/22 documented as of this encounter
--- OUTSIDE RECORDS SUMMARY | 2025-07-24 19:14 | XMS_ITS | Clinical Summary ---
Author Organization [employer] [facility] ity Address [address] [place] [address] Care Team Providers Care Satellite Tv Technician Installer Name Role Phone Unavailable Primary Care Provider [...]
--- OUTSIDE RECORDS SUMMARY | 2025-07-24 19:14 | XMS_ITS | Clinical Summary ---
Author Organization [facility] [employer] [facility] Facility Address [address] [address] Care Team Providers Care Production Tester Name Role Phone Unavailable Primary Care Provider [...] % PVNMA 08/21/2020 us [facility] [id number] LICITED RESULTS Final Result PVNMA from Last 3 Months or Most Recently Relevant to Health Maintenance Insurance Medicaid [place] Medicare Medicaid [place] Medicare
--- OUTSIDE RECORDS SUMMARY | 2025-07-24 19:14 | XMS_ITS | Encounter Summary ---
Author Organization [employer] Address [address] [facility] [address] [place] [address] Care Team Providers Care Aircraft Layout Worker Name Role Phone Krysta Lockett MEDICAL ASSISTANT INTERNAL MEDICINE Primary Care Provider [phone] Encounter Details Date Type Department Care Team (Late st Contact Info) Description 09/24/2023 Abstract [facility] [address] [place], [place] [phone] Rciha Rehman Social History Tobacco Use Types Packs/Day [...] 08/08/2025 9:15 AM EDT Office Visit [facility] [address] [place] [address] Krysta Lockett FNP [address] [place] [address] documented as of this encounter Visit Diagnoses Not on filedocumented in this encounter Additional Health Concerns Assessment Noted Time PHQ-9 Depression Total Score: 0 12/21/19 23 10:22 AM EST documented as of this encounter Care Teams Aircraft Layout Worker Relationship Specialty Start Date End Date Krysta Lockett FNP [address] [place] [address] PCP - General Family Medicine 10/27/22 documented as of this encounter
--- OUTSIDE RECORDS SUMMARY | 2025-07-24 19:14 | XMS_ITS | Clinical Summary ---
Author Organization [employer] Address [address] [place] [address] 7[address] [place] [address] Care Team Providers Care Hook Loader Name Role Phone Krysta Lockett PATTERN MOLDER Primary Care Provider [phone] Allergies Active Allergy Reactions Criticality Noted Date [...] s:Chronic obstructive pulmonary disease, unspecified COPD type ([facility]) INHALE 1 PUFF TWICE DAILY. RINSE MOUTH AFTER USING. 60 each 01/28/20 24 Active glucose 4 g chewable tabletIndication s:Type 2 diabetes mellitus with hypoglycemia without coma, without long-term current use of insulin ([facility]) Chew 4 tablets (16 g) if needed for low blood sugar. 50 tablet 12 06/28/20 24 Active Diclofenac Sodium 1 % gelIndications:O ther chronic pain Apply topically to affected areas twice daily 150 g 06/28/20 24 Active Continuous Glucose Sensor (FreeStyle Iglesia 2 Sensor) miscIndications: Type 2 diabetes mellitus with hypoglycemia without coma, without long-term current use of insulin ([facility]) Apply 1 sensor every 14 days 2 each 2 06/30/20 24 Active Continuous Glucose Thinner Sprayer (FreeStyle Iglesia 2 [place]) deviceIndication s:Type 2 diabetes mellitus with hypoglycemia without coma, without long-term current use of insulin ([facility]) Scan sensor every 8 hours 1 each 06/30/20 24 Active folic acid (Folvite) 1 MG tabletIndication s:Stage 3a chronic kidney disease ([facility]) TAKE 1 TABLET BY MOUTH EVERY [...] no improvement -gave today to pt # [id number] of his vascular office to call and reschedule apt --I called today as well Dr Beckham's office and left my phone number for a call back from vascular -referred to cards to r/o cardiac etiology -tylenol prn x pain in legs -raise legs -continue use of pneumatic compression -alarm signs and symptoms explained Venous insufficiency 12/23/2022 Overview (12/23/2022): Followed by [facility] [place] [place] vascular Negative LE ultrasound 11/2022 Assessment & [...] vein thrombosis) 12/15/2022 Overview (12/23/2022): Followed by [facility] [place] Dr. 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 Started on [...] NSR no ischemic findings -referred today to public health informatician x complete eval of echocardiogram x orthopnea [...] DEPARTMENT Provider, Generic External Data 06/26/2025 Telephone [facility] [address] [place] [address] [facility] Appointment Request 06/22/2025 Refill [facility] [address] [place], [place] [phone] [facility] Type 2 diabetes mellitus with hypoglycemia without coma, without long-term current use of insulin ([facility]) 06/20/2025 Orders Only GENERIC EXTERNAL DATA DEPARTMENT Provider, Generic External Data 06/19/2025 Orders Only GENERIC EXTERNAL DATA DEPARTMENT Provider, Generic External Data 04/24/2025 Refill [facility] [address] [place] [address] [facility] Type 2 diabetes mellitus with hypoglycemia without coma, without long-term current use of insulin ([facility]) from Last 3 Months Immunizations Immunization [...] 08/08/2025 9:15 AM EDT Office Visit [facility] [address] [place], [place] [phone] [facility], [facility] [address] [place] [address] Health Maintenance Due Date Last Done Comments [...] (MENDOZA) (07/23/2025 8:51 AM EDT) IDNOW SERIAL# [id number] [facility] COVID-19 TEST Positive (A) Negative [facility] COVID-19 NOTE See Note [facility] Comment: Results are for the identification of SARS-CoV2 RNA. TheSARS-CoV2 RNA is generally detectable in respiratory samplesduring the acute phase of infection. Positive results areindicative of the presence of SARS-CoV-2 RNA; clinicalcorrelation with patient history and other diagnosticinformation is necessary to determine patient infectionstatus. Positive results do not rule out bacterial infectionor co- infection with other viruses.Testing facilities within the [facility] and itsterritories are required to report all [...] LAB MOLECULAR ALEA GNOSTICS ORDERABLES Final Result [facility] [address] [place] [address] [phone] * High Sensitivity Troponin I (07/23/2025 8:50 AM EDT) [facility] TROPONIN I HIGH SENSITIVITY 4.3 <3.5 - 35.0 ng/L [facility] Comment:The Mendoza high sens itivity Troponin-I results should beused in conjunction with other diagnostic information suchas ECG, clinical observations and information, and patientsymptoms to aid in the diagnosis of PA. 07/23/2025 8:50 AM EDT 07/23/2025 8:55 AM EDT Generic External Data Provider LAB BLOOD ORDERAB LES Final Result [facility] [address] [place] [address] [phone] * Lipase (07/23/2025 8:50 AM EDT) [facility] Lipase 9 8 - 78 U/L [facility] 07/23/2025 8:50 AM EDT 07/23/2025 8:55 AM EDT Generic External Data Provider LAB BLOOD ORDERAB LES Final Result Performing Organization Address City/[facility]/ZIP Co de Phone Number [facility] [address] [place] [address] [phone] * (ABNORMAL) Comprehensive Metabolic Panel (07/23/2025 8:50 AM EDT) [facility] Sodium 141 135 - 145 mmol/L [facility] Potassium 4.0 3.3 - 5.1 mmol/L [facility] Chloride 106 96 - 108 mmol/L [facility] Carbon Dioxide 28 22 - 29 mmol/L [facility] Anion Gap 11(L) 12 - 20 [facility] Urea Nitrogen (BUN) 14 9 - 16 mg/dL [facility] Creatinine, Serum 1.39 0.5 - 1.4 mg/dL [facility] Creatinine Clr Calc Pharmacy 54.2 [facility] Comment:eGFR (calculated fro m the MDRD study equation) and eCrCl(calculated from the Cockcroft-Gault equation) are based ondifferent parameters and may not yield comparable results.If eCrCl result is absurd, please check patient'sheight/weight. Estimated Glomerular Filt Rate 51 [facility] Comment:Chronic Kidney Disea se: Estimated GFR < 60 mL/min/1.57t5Ysoxve Kidney Disease: Estimated GFR < 15 mL/min/1.73m2 Glucose 79 60 - 115 mg/dL [facility] Calcium 8.4 8.4 - 10.2 mg/dL [facility] Bilirubin, Total 1.1(H) 0.0 - 1.0 mg/dL [facility] Aspartate Amino Transferase 38(H) 5 - 37 U/L [facility] Alanine Aminotransferase 38 0 - 40 U/L [facility] Total Protein 6.0(L) 6.5 - 8.0 g/dL [facility] Albumin Level 3.5 3.5 - 5.0 g/dL [facility] Alkaline Phosphatase 121(H) 39 - 117 U/L [facility] 07/23/2025 8:50 AM EDT 07/23/2025 8:55 AM EDT us Generic External Data Provider LAB BLOOD ORDERAB LES Final Result [facility] [address] [place] [phone] * (ABNORMAL) CBC auto differential (07/23/2025 8:04 AM EDT) Only the most recent of2 resultswithin the time period is included. White Blood Count 5.0 4.8 - 10.8 X10*3/uL [facility] Red Blood Count 3.73(L) 4.60 - 5.80 X10*6/uL [facility] Hemoglobin 11.5(L) 14.0 - 18.0 g/dl [facility] Hematocrit 35.6(L) 42.0 - 52.0 % [facility] Mean Corpuscular Volume 95.4 80.0 - 98.0 fL [facility] Mean Corpuscular Hemoglobin 30.8 27.0 - 33.0 pg [facility] Mean Corpuscular HGB Conc 32.3 31.0 - 36.0 g/dl [facility] Red Cell Distribution Width 11.9 11.0 - 16.0 % [facility] Platelet Count 180 160 - 400 X10*3/uL [facility] Mean Platelet Volume 11.6 9.4 - 12.4 fL [facility] Neutrophils Percent Auto 70.4 45 - 73 % [facility] Imm Gran Pct Auto 0.4 0.0 - 0.4 % [facility] Lymphocytes Percent Auto 17.3(L) 20 - 40 % [facility] Monocytes Percent Auto 9.3 2 - 11 % [facility] Eosinophils Percent Auto 2.2 0 - 4 % [facility] Basophils Percent Auto 0.4 0 - 2 % [facility] NRBC Pct Auto 0.4(H) 0.0 - 0.2 /100WBC [facility] Neutrophils Absolute Auto 3.5 2.0 - 8.3 x10*3/uL [facility] Imm Gran Abs Auto 0.02 0.00 - 0.03 X10*3/uL [facility] Lymphocytes Absolute Auto 0.9(L) 1.2 - 4.9 X10*3/uL [facility] Monocytes Absolute Auto 0.5 0.1 - 1.2 X10*3/uL [facility] Eosinophils Absolute Auto 0.1 0.0 - 0.4 X10*3/uL [facility] Basophils Absolute Auto 0.0 0.0 - 0.2 X10*3/uL [facility] NRBC Abs Auto 0.020(H) 0.0 - 0.012 X10*3/uL [facility] 07/23/2025 8:04 AM EDT 07/23/2025 8:07 AM EDT Generic External Data Provider LAB BLOOD ORDERAB LES Edited Result - Final Performing Organization Address [facility] Co de Phone Number [facility] [address] [place] [phone] * Creatinine, Serum (07/02/2025 1:49 PM EDT) Creatinine, Serum 1.38 0.5 - 1.4 mg/dL [facility] Estimated Glomerular Filt Rate 51 [facility] Comment:Chronic Kidney Disea se: Estimated GFR < 60 mL/min/1.65n8Giwofx Kidney Disease: Estimated GFR < 15 mL/min/1.73m2 07/02/2025 1:49 PM EDT 07/02/2025 1:49 PM EDT us Generic External Data Provider LAB BLOOD ORDERAB LES Final Result Performing Organization Address [facility] Co de Phone Number [facility] [address] [place] [phone] * BUN (Blood Urea Nitrogen) (07/02/2025 1:49 PM EDT) Urea Nitrogen (BUN) 16 9 - 16 mg/dL [facility] 07/02/2025 1:49 PM EDT 07/02/2025 1:49 PM EDT us Generic External Data Provider LAB BLOOD ORDERAB LES Final Result Performing Organization Address [facility]/ZIP Co de Phone Number [facility] [address] [place] [phone] * Hemoglobin A1c (07/02/2025 1:49 PM EDT) Hemoglobin A1c 5.1 <6.0 % [facility] Comment:Hemoglobin A1C Refer ence Range Adults: 4.8 - 6.0 % Non diabetic: < 6.0 % Goal: < 7.0 %Additional Action Suggested: > 8.0 %Note: Hemoglobin A1c results are invalid for patients with abnormal amounts of HbF. Blood transfusions may impact the HbA1c concentration in the patient sample. Estimated Average Glucose 100 mg/dL [facility] Comment:eAG = Estimated ave rage glucose which is %A1C expressed asaverage glucose, using the formula of the F7O-ZelvsuoMhoasgw Glucose study (ADAG), Diabetes Care, Vol.31,#8,Jun. 2007 07/02/2025 1:49 PM EDT 07/02/2025 1:49 PM EDT Generic External Data Provider LAB BLOOD ORDERAB LES Final Result Performing Organization Address [facility] Co de Phone Number [facility] [address] [place] [phone] * Electrolyte Panel (07/02/2025 1:49 PM EDT) Sodium 142 135 - 145 mmol/L [facility] Potassium 4.0 3.3 - 5.1 mmol/L [facility] Chloride 107 96 - 108 mmol/L [facility] Carbon Dioxide 27 22 - 29 mmol/L [facility] Anion Gap 12 12 - 20 [facility] 07/02/2025 1:49 PM EDT 07/02/2025 1:49 PM EDT Generic External Data Provider LAB BLOOD ORDERAB LES Final Result Performing Organization Address [facility] de Phone Number [facility] [address] [place] [phone] * (ABNORMAL) Protein Creatinine Ratio, Urine (07/02/2025 1:41 PM EDT) Creatinine, Urine 259.64 mg/dL [facility] Protein, Total, Random Urine 23(H) <12 mg/dL [facility] Protein/Creati nine Ratio, Ur 0.09 <0.2 [facility] Comment:The spot urine prote in:creatinine ratio may increase to 0.3during normal . 07/02/2025 1:41 PM EDT 07/02/2025 2:19 PM EDT us Generic External Data Provider LAB URINE ORDERAB LES Final Result Performing Organization Address [facility] Co de Phone Number [facility] [address] [place] [phone] * (ABNORMAL) Glucose, Whole Blood (06/20/2025 7:35 AM EDT) Only the most recent of4 resultswithin the time period is included. Glucose, Whole Blood 133(H) 60 - 115 mg/dL [facility] Comment:METER #: [id number] 06/20/2025 7:35 AM EDT 06/20/2025 7:38 AM EDT us Generic External Data Provider LAB BLOOD ORDERAB LES Final Result Performing Organization Address [facility] Co de Phone Number [facility] [address] [place] [phone] * Slide Review (06/20/2025 5:09 AM EDT) Slide Review VERIFIED [facility] 06/20/2025 5:09 AM EDT 06/20/2025 5:43 AM EDT us Generic External Data Provider LAB BLOOD ORDERAB LES Final Result Performing Organization Address [facility] Co de Phone Number [facility] [address] [place] [phone] * (ABNORMAL) Hepatic Function Panel (06/20/2025 5:09 AM EDT) Bilirubin, Total 0.7 0.0 - 1.0 mg/dL [facility] Bilirubin, Direct 0.3 0.0 - 0.5 mg/dL [facility] Aspartate Amino Transferase 37 5 - 37 U/L [facility] Alanine Aminotransferase 25 0 - 40 U/L [facility] Total Protein 6.0(L) 6.5 - 8.0 g/dL [facility] Albumin Level 3.5 3.5 - 5.0 g/dL [facility] Alkaline Phosphatase 111 39 - 117 U/L [facility] 06/20/2025 5:09 AM EDT 06/20/2025 5:43 AM EDT us Generic External Data Provider LAB BLOOD ORDERAB LES Final Result [facility] [address] [place] [phone] [phone] * (ABNORMAL) Basic Metabolic Panel (06/20/2025 5:09 AM EDT) Only the most recent of2 resultswithin the time period is included. Sodium 138 135 - 145 mmol/L [facility] Potassium 5.0 3.3 - 5.1 mmol/L [facility] Chloride 105 96 - 108 mmol/L [facility] Carbon Dioxide 24 22 - 29 mmol/L [facility] Anion Gap 14 12 - 20 [facility] Urea Nitrogen (BUN) 20(H) 9 - 16 mg/dL [facility] Creatinine, Serum 1.12 0.5 - 1.4 mg/dL [facility] Creatinine Clr Calc Pharmacy 65.2 [facility] Comment:eGFR (calculated fro m the MDRD study equation) and eCrCl(calculated from the Cockcroft-Gault equation) are based ondifferent parameters and may not yield comparable results.If eCrCl result is absurd, please check patient'sheight/weight. Estimated Glomerular Filt Rate >60 [facility] Comment:Chronic Kidney Disea se: Estimated GFR < 60 mL/min/1.29e3Wydqgm Kidney Disease: Estimated GFR < 15 mL/min/1.73m2 Glucose 154(H) 60 - 115 mg/dL [facility] Calcium 8.7 8.4 - 10.2 mg/dL [facility] 06/20/2025 5:09 AM EDT 06/20/2025 5:43 AM EDT Generic External Data Provider LAB BLOOD ORDERAB LES Final Result Performing Organization Address City/[facility] Co de Phone Number [facility] [address] [place] [phone] * (ABNORMAL) Hemoglobin and Hematocrit (06/19/2025 4:21 PM EDT) Hemoglobin 11.4(L) 14.0 - 18.0 g/dl [facility] Hematocrit 34.4(L) 42.0 - 52.0 % [facility] 06/19/2025 4:21 PM EDT 06/19/2025 4:24 PM EDT [employer] External Data Provider LAB BLOOD ORDERAB LES Final Result Performing Organization Address [facility] de Phone Number [facility] [address] [place] [phone] * Gross and Microscopic Level 3 (06/19/2025 3:06 PM EDT) 06/19/2025 3:06 PM EDT 06/20/2025 8:35 AM EDT Narrative [facility] - 06/21/2025 3:22 PM EDT ----- ------- Name: Armando Ba Age/Sex: 70/M : 1955 [id number] [id number] Attend Dr: Lennox Solares MD Re06/19/25 Status: [facility] [facility] Location: [facility] Disch: ----- ------- SPEC : [id number] RECD: 06/20/25 STATUS: BARBRAThais DE LUNA NUM: [id number] VIOLETTA: 06/19/25-[address]: Lennox Solares MD ENTERED: 06/20/25 SP TYPE: Surgical OTHR DR: [facility] ORDERED: Gross Micro L3 Diagnosis Gallbladder, [...] measuring up to 0.15 cm in thickness. Cash Accounting Clerk sections are submitted in a cassette labeled A1 to include the margin of resection of the cystic duct. CEDS IHC S/NG Disclaimer NOTE: Unless otherwise stated, all tissue is formalin-fixed and paraffin-embedded. Some or all of the immunohistochemical tests reported herein may have been developed and their performance characteristics determined by [facility]. They have not been cleared [...] Armando Ba Age/Sex: 70/M : 1955 Unit#: [id number] Attend Dr: Lennox Solares MD Re06/19/25 Status: [facility] Location: [facility] Disch: ----- ------- SPEC : [id number] RECD: 06/20/25 STATUS: BARBRAThais [place] NUM: [id number] VIOLETTA: 06/19/25-1506 [facility] DR: Lennox Solares MD ENTERED: 06/20/25 SP TYPE: Surgical OTHR DR: [facility] ORDERED: Gross Micro L3 Copies To: [facility] [address] [place], [place] [phone] Lennox Solares MD [facility] [place] [place] Weight Management Program [address] [place] [address] [phone] ----- ------- Signed (signature on file) Karina Giron MD 06/21/25 1522 ----- ------- END OF REPORT us Generic External Data Provider LAB CYTOLOGY DALLIN ZARCO Final Result [facility] [address] [place] [phone] * Lipid Panel, Standard (03/01/2025 2:50 PM EDT) Triglycerides 57 <150 mg/dL [facility] Comment:Desirable Triglyceri de: less than 150 mg/dLBorderline High Triglyceride 150-199 mg/dLHigh Triglyceride: 200-499 mg/dLVery High Triglyceride: greater than or equal to 5OO mg/dL Cholesterol 177 <200 mg/dL [facility] Comment:Desirable Cholestero l: less than 200 mg/dLBorderline High Cholesterol: 200-239 mg/dLHigh Cholesterol: greater than 239 mg/dL LDL Cholesterol Calculated 94 <100 mg/dL [facility] Comment:Desirable LDL: less than 100 mg/dLNear Optimal/Above Optimal LDL: 110- 129 mg/dLBorderline High LDL: 130-159 mg/dLHigh LDL: 160-189 mg/dLVery High LDL: greater than or equal to 190 mg/dL HDL Cholesterol 72 >40 mg/dL [facility] Comment:Desirable HDL: great er than 40 mg/dL Note: This HDL assay may give artificially low results in patients with liver disease. Blood Venous blood specimen / Unknown 03/01/2025 2:50 PM EDT 03/01/2025 3:55 PM EDT [facility] LAB BLOOD ORDERABLES Edited R esult - Final Performing Organization Address City/[facility]/ZIP Co de Phone Number [facility] [address] [place] [phone] [phone] * Hepatitis C Antibody with Reflex to HCV, RNA, Quantitative, Real-Time PCR (12/15/2022 9:44 AM EST) Hepatitis C Antibody NON-REACT SIDDHARTH NON-REACT SIDDHARTH [employer] [facility] Index <0.02 <1.00 [employer] Comment: HCV antibody was non-reactive. There is no laboratory evidence of HCV infection. In most cases, no further action is required. However, if recent HCV exposure is suspected, a test for HCV RNA (test code 14851) is suggested. For additional information please refer to http://education.[employer]/faq/GGW20s4 (This link is being provided for informational/ educational purposes only.) Blood Venous blood specimen / Unknown 12/15/2022 9:44 AM EST 12/15/2022 9:45 AM EST Narrative [facility] - 12/16/2022 2:26 PM EST FASTING:UNKNOWN FASTING: UNKNOWN [facility] LAB BLOOD ORDERABLES Final Re sult Performing Organization Address City/[facility] Co de Phone Number [facility] [address] [facility] [place] [phone] [employer] [address] , ([address]) [place] [phone] * Hm Colonoscopy (07/18/2019 7:44 AM EDT) Historical Provider HEALTH MAINTENANCE Final Result from Last 3 Months or Most Recently Relevant to Health Maintenance Insurance [employer] (HMO D-SNP) JUAN ASHBY [id number] Care Teams Hook Loader Relationship Specialty Start Date End Date Krysta Lockett FNP [address] [place] [address] PCP - General Family Medicine 10/27/22
--- OUTSIDE RECORDS SUMMARY | 2025-07-24 19:14 | XMS_ITS | Encounter Summary ---
Author Organization [employer] Address [address] [facility] [address] [place] [address] Care Team Providers Care Pony Roll Finisher Name Role Phone Bonnyman [facility] Primary Care Provider [phone] Encounter Details Date Type Department Care Team (Late st Contact Info) Description 07/19/2024 Orders Only [facility] [address] [place], [place] [phone] [facility] [address] [place] [address] Social History Tobacco Use Types Packs/Day Years [...] Description 08/08/2025 9:15 AM EDT Office Visit [facility] [address] [place] [address] Krysta Lockett FNP [address] [place] [address] documented as of this encounter Visit Diagnoses Not on filedocumented in this encounter Additional Health Concerns Assessment Noted Time PHQ-9 Depression Total Score: 0 12/08/19 24 10:42 AM EST documented as of this encounter Care Teams Pony Roll Finisher Relationship Specialty Start Date End Date Krysta Lockett FNP [address] [place] [address] PCP - General Family Medicine 10/27/22 documented as of this encounter
--- OUTSIDE RECORDS SUMMARY | 2025-07-24 19:14 | XMS_ITS | Encounter Summary ---
Author Organization [employer] Address [address] [place] [address] [address] [place] [address] Care Team Providers Care Community Placement Worker Name Role Phone Roberto Carlos Coleman MD Primary Care Provider Unava ilissa [facility] Primary Care Provider [phone] Encounter Details Date Type Department Care Team (Latest Contact Info) Description 12/01/2019 Abstract [facility] CONVERSIONS Dental, Provider, DDS Social History Tobacco [...] Description 08/08/2025 9:15 AM EDT Office Visit [facility] [address] [place] [address] [facility] [address] [place] [address] documented as of this encounter Visit Diagnoses Not on filedocumented in this encounter Care Teams Community Placement Worker Relationship Specialty Start Date End Date Roberto Carlos Coleman MD PCP - General Family Medicine 04/19/20 10/26/22 Krysta Lockett [facility] [address] [place] [address] PCP - General Family Medicine 10/27/22 documented as of this encounter
--- OUTSIDE RECORDS SUMMARY | 2025-07-24 19:14 | XMS_ITS | Encounter Summary ---
Author Organization [employer] Address [address] [facility] 7t [place] [address] Care Team Providers Care Real Estate Economist Name Role Phone Krysta Locktet CATALYTIC CONVERTER OPERATOR Primary Care Provider [phone] Encounter Details Date Type Department Care Team (Late st Contact Info) Description 02/16/2024 Orders Only [facility] [address] [place], [place] [phone] Provider, MD Larissa Social History Tobacco Use [...] Description 08/08/2025 9:15 AM EDT Office Visit [facility] [address] [place], [place] [phone] [facility] [address] [place], [place] [phone] documented as of this encounter Procedures Procedure Name Priority Date/Time Associated Diagnosis Comments US RENAL BI Routine 03/08/2024 12:37 PM EDT HM COLONOSCOPY Routine 07/18/2019 7:44 AM EDT documented in this encounter Results * US RENAL BI (03/08/2024 12:37 PM EDT) Anatomical Region Laterality Modality Abdomen Ultrasound 03/08/2024 12:3 7 PM EDT Narrative 03/10/2024 10:07 AM EDT [address] [address] Ultrasound Report Signed Patient: Armando Ba MR#: [id number] : 1955 Acct:[id number] Age/Sex: 68 / M ADM Date: 03/08/24 Loc: HO. Attending Dr: Bladimir Le MD Ordering Physician: Bladimir Le MD Date of Service: 03/08/24 Procedure(s): US renal BI Accession Number(s): [id number] cc: Bladimir Le MD; [place] [facility] EXAMINATION: US RETROPERITONEAL LIMITED (RENAL ONLY) [...] in OV> 03/10/24 1004 DD/ 1237 TD/TT: Aluminum Welder: ELAINE Procedure Note Donotuseinterpreter, Image - 03/10/2024 [place] [address] Ultrasound Report Signed Patient: Armando BaMR#: [id number] : 6Acct:[id number] Age/Sex: 68 / MADM Date: 03/08/24 Loc: HO.US Attending Dr: Bladimir Le MD Ordering Physician: Bladimir Le MD Date of Service: 03/08/24 Procedure(s): US renal BI Accession Number(s): [id number] cc: Bladimir Le MD; [facility] EXAMINATION: US RETROPERITONEAL LIMITED (RENAL ONLY) [...] in OV> 03/10/24 1004 DD/ 1237 TD/TT: Aluminum Welder: ELAINE [facility] External Provider IMG US PROCEDURES Final Result * Hm Colonoscopy (07/18/2019 7:44 AM EDT) Historical Provider HEALTH MAINTENANCE Final Result documented in this encounter Visit Diagnoses Not on filedocumented in this encounter Additional Health Concerns Assessment Noted Time PHQ-9 Depression Total Score: 0 12/08/19 24 10:42 AM EST documented as of this encounter Care Teams Real Estate Economist Relationship Specialty Start Date End Date Krysta Lockett FNP [address] [place] [phone] PCP - General Family Medicine 10/27/22 documented as of this encounter
--- OUTSIDE RECORDS SUMMARY | 2025-07-24 19:14 | XMS_ITS | Encounter Summary ---
Author Organization [employer] [facility] Address [address] [place] [address] 7[address] [place] [address] Care Team Providers Care Warehouse And Receiving Supervisor Name Role Phone [place] Primary Care Provider [phone] Encounter Details Date Type Department Care Team (Late st Contact Info) Description 11/18/2022 Orders Only [facility] [address] [place] [phone] Amanda Haynes LPN Social History Tobacco Use [...] Description 08/08/2025 9:15 AM EDT Office Visit [facility] [address] [place] [phone] [facility] [address] [place] [address] documented as of this encounter Visit Diagnoses Not on filedocumented in this encounter Care Teams Warehouse And Receiving Supervisor Relationship Specialty Start Date End Date Krysta Lockett FNP [address] [place] [address] PCP - General Family Medicine 10/27/22 documented as of this encounter
--- OUTSIDE RECORDS SUMMARY | 2025-07-24 19:14 | XMS_ITS | Encounter Summary ---
Author Organization [employer] Address [address] [facility] 7[address] [place] [address] Care Team Providers Care Biofuels Product Development Manager Name Role Phone [place] Primary Care Provider [phone] Encounter Details Date Type Department Care Team (Late st Contact Info) Description 09/01/2023 Abstract [facility] [address] [place], [place] [phone] [place] [facility] [address] [place] [address] Social History Tobacco Use Types Packs/Day Years [...] Description 08/08/2025 9:15 AM EDT Office Visit [facility] [address] [place] [address] Krysta Lockett FNP [address] [place] [address] documented as of this encounter Visit Diagnoses Not on filedocumented in this encounter Additional Health Concerns Assessment Noted Time PHQ-9 Depression Total Score: 0 12/21/19 23 10:22 AM EST documented as of this encounter Care Teams Biofuels Product Development Manager Relationship Specialty Start Date End Date Krysta Lockett FNP [address] [place] [address] PCP - General Family Medicine 10/27/22 documented as of this encounter
[2025-07-24 19:37] VITALS: BP 145/69; PULSE 69; RESP 18; TEMP 37; O2SAT 99
== END 2025-07-24 19:37 | disposition home or self-care (01) ==
PROVIDERS: Emergency Provider Student in an Organized Health Care Education/Training Program
DX: U07.1 COVID-19 (principal); R55 Syncope and collapse; R07.9 Chest pain, unspecified; I82.409 Acute embolism and thrombosis of unspecified deep veins of unspecified lower extremity; I12.9 Hypertensive chronic kidney disease with stage 1 through stage 4 chronic kidney disease, or unspecified chronic kidney disease; E11.22 Type 2 diabetes mellitus with diabetic chronic kidney disease; N18.9 Chronic kidney disease, unspecified; J44.9 Chronic obstructive pulmonary disease, unspecified; Z79.01 Long term (current) use of anticoagulants; Z79.899 Other long term (current) drug therapy
CPT/HCPCS: 36415; 71046; 80048; 83735; 84484; 85025; 93005; 96360; 99284; 99285; J7120

== ENCOUNTER → 2025-07-24 16:52 | Outpatient (BNV) | payer OTHER, SELFPAY | PROVIDERS: Emergency Provider Student in an Organized Health Care Education/Training Program; Visit Provider Radiology Diagnostic Radiology | DX: R07.9 Chest pain, unspecified (principal) | CPT/HCPCS: 71046 ==

== ENCOUNTER → 2025-07-24 16:57 | Outpatient (BNV) | payer OTHER, SELFPAY | PROVIDERS: Emergency Provider Student in an Organized Health Care Education/Training Program; Visit Provider Internal Medicine | DX: R55 Syncope and collapse (principal) | CPT/HCPCS: 93010 ==

== ENCOUNTER 2025-08-01 15:12 | Emergency (ER) | payer OTHER, SELFPAY ==
--- OUTSIDE RECORDS SUMMARY | 2025-07-27 13:00 | XMS_ITS | Encounter Summary ---
Author Organization [employer] Address [address] [facility] 7t [place] [address] Care Team Providers Care Helmet Binder Name Role Phone Krysta Lockett DRYWALL FINISHING FOREMAN Primary Care Provider Reason for Visit * Reason Comments Covid-19 Testing Encounter Details Date Type Department Care Team ([facility] Contact Info) Description 07/27/2025 1:00 PM EDT Office Visit [facility] [address] [place] [address] Kamila Emerson MD [address] [place] [address] COVID-19 Social History Tobacco Use Types Packs/Day Years [...] Sign Reading Time Taken Comments Blood Pressure 157/78 07/27/2025 12:58 PM EDT Pulse 69 07/27/2025 12:58 PM EDT Temperature 36.5 C (97.7 F) 07/27/2025 12:58 PM EDT Respiratory Rate 20 07/27/2025 12:58 PM EDT Oxygen Saturation 99% 07/27/2025 12:58 PM EDT Inhaled Oxygen Concentration - - Weight 85.4 kg (188 lb 3.2 oz) 07/27/2025 12:58 PM EDT Height - - Body Mass Index 27 03/26/2025 5:22 PM EDT documented in this encounter Progress Notes * Kamila Her MD - 07/27/2025 1:00 PM EDT SUBJECTIVE: Armando Gay is a 70 y.o. year old male who presents for acute visit . Acute Concerns: Patient reports 6 days of cough productive, headache, sore throat, intermittent diarrhea, he went to ED and was diagnos with COVID medication was prescribed patient reports he still has some persistent cough but overall he feels much better he is here because he wants to go back to his adult program Social History Social History Narrative Current living environment: lives alone, daughter goes daily-Attends adult day program which he enjoys Children: 6 adult children, Shasta is daughter and helps him Tobacco Use: None Alcohol Use: None Marijuana Use: None Other drug use: None Problem List[1] Anemia of chronic disease Chronic obstructive lung disease ([facility]/HCC) Hypertensive disorder Memory impairment Mood disorder ([facility]/HCC) Stage 3 chronic kidney disease ([facility]/HCC) Type 2 diabetes mellitus ([facility]/HCC) Gait instability History of DVT (deep vein thrombosis) Gastroesophageal reflux disease without esophagitis Hyperlipidemia associated with type 2 diabetes mellitus ([facility]) Osteoarthritis of knee Venous insufficiency Status post bariatric surgery Healthcare maintenance Acquired lymphedema of lower extremity Elevated blood pressure reading Exercise counseling Mild depression Family History[2] Review of Systems Constitutional: Positive for fatigue. Negative for activity change, appetite change, chills, diaphoresis, fever and unexpected weight change. HENT: Negative. Respiratory: Positive for cough. Negative for apnea, choking, chest tightness, shortness of breath,wheezing and stridor. Cardiovascular: Negative. Gastrointestinal: Positive for diarrhea. Negative for abdominal distention, abdominal pain, anal bleeding, blood in stool, constipation, nausea, rectal pain and vomiting. Neurological: Positive for headaches. Negative for dizziness, facial asymmetry and light-headedness. OBJECTIVE: Vitals: 07/27/25 1258 BP: (!) 157/78 BP Location: Left arm Patient Position: Sitting BP Cuff Size: Adult Pulse: 69 Resp: 20 Temp: 97.7 ??F (36.5 ??C) TempSrc: Temporal SpO2: 99% Weight: 188 lb 3.2 oz (85.4 kg) Physical Exam Constitutional: Appearance: Normal appearance. Cardiovascular: Rate and Rhythm: Normal rate and regular rhythm. Pulmonary: Effort: Pulmonary effort is normal. Breath sounds: Normal breath sounds. Abdominal: General: Abdomen is flat. Palpations: Abdomen is soft. Musculoskeletal: Right lower leg: No edema. Left lower leg: No edema. Neurological: Mental Status: He is alert. Follow Up: No follow-ups on file. Medications Ordered Prior to Encounter[3] Problem List Items Addressed This Visit COVID-19 In light that patient still positive for COVID-19 I advised to continue to drink plenty of fluids and rest and he may return back to his adult program in 5 days I also advise if symptoms persist or worse to come back for reevaluation Relevant Orders POCT Rapid COVID Ag (Completed) Influenza A (ID NOW Rapid Molecular) (Completed) Influenza B (ID NOW Rapid Molecular) (Completed) [1] Patient Active Problem List Diagnosis Anemia of chronic disease Chronic obstructive lung disease ([facility]/HCC) Hypertensive disorder Memory impairment Mood disorder ([facility]/HCC) Stage 3 chronic kidney disease ([facility]) Type 2 diabetes mellitus ([facility]) Gait instability History of DVT (deep vein thrombosis) Gastroesophageal reflux disease without esophagitis Hyperlipidemia associated with type 2 diabetes mellitus ([facility]) Osteoarthritis of knee Venous insufficiency Status post bariatric surgery Healthcare maintenance Acquired lymphedema of lower extremity Elevated blood pressure reading Exercise counseling Mild depression COVID-19 [2] No family history on file. [3] Current Outpatient Medications on File Prior to Visit Medication Sig Dispense Refill acetaminophen (Tylenol Extra Strength) 500 MG tablet Take 2 tablets (1,000 mg) by mouth every 6 (six) hours if needed for moderate pain. 30 tablet 1 apixaban (Eliquis) 5 MG tablet TAKE 1 TABLET BY MOUTH TWICE DAILY ONCE EVERY MORNING AND ONCE EVERYNIGHT AT BEDTIME 60 tablet 3 ascorbic acid (Vitamin C) 250 MG chewable tablet TAKE 1 TABLET BY MOUTH EVERY MORNING WITH IRON (CHEW) 90 tablet 1 Blood Pressure kit 1 kit 1 (one) time per week. 1 kit 0 Continuous Glucose Conche Loader And Unloader (FreeStyle [place] 2 [place]) device Scan sensor every 8 hours 1 each 0 Continuous Glucose Sensor (FreeStyle [place] 2 Sensor) [facility] Apply 1 sensor every 14 days 2 each 2 Diclofenac Sodium 1 % gel Apply topically to affected areas twice daily 150 g 1 FeroSul 325 (65 Fe) MG tablet TAKE [...] MORNING BEFORE A MEAL 90 capsule 1 sildenafil (Viagra) 25 MG tablet Take 1 tablet (25 mg) by mouth if needed each day for erectile dysfunction. 1 hour before sexual activity 30 tablet 0 Spiriva HandiHaler 18 MCG inhalation capsule USE 1 CAPSULE FOR INHALATION ONCE A DAY DO NOT SWALLOWCAPSULE 30 capsule 11 traMADol (Ultram) 50 MG tablet TAKE 1 TABLET BY MOUTH EVERY TWELVE HOURS traZODone (Desyrel) 100 MG tablet TAKE 1 TABLET BY MOUTH AT BEDTIME 30 tablet 5 Trulicity 0.75 MG/0.5ML solution auto-injector INJECT ONE PEN (=0.75MG) SUBCUTANEOUSLY ONCE A WEEK DIRECTED 2 mL 1 [DISCONTINUED] Eliquis 5 MG tablet TAKE 1 TABLET BY MOUTH TWICE DAILY ONCE EVERY MORNING AND ONCE EVERY NIGHT AT BEDTIME 60 tablet 3 No current facility-administered medications on file prior to visit. documented in this encounter Miscellaneous Notes * Assessment & Plan Note - Kamila Her MD - 07/27/2025 1:52 PM EDT Associated Problem(s): COVID-19 In light that patient still positive for COVID-19 I advised to continue to drink plenty of fluids and rest and he may return back to his adult program in 5 days I also advise if symptoms persist or worse to come back for reevaluation documented in this encounter Plan of Treatment Upcoming Encounters Date Type Department Care Team (Late st Contact Info) Description 08/07/2025 1:30 PM EDT Medication Management [facility] [address] [place] [address] Kraig Martines, PharmD [address] [place], [place] [phone] 08/08/2025 9:15 AM EDT Office Visit [facility] [address] [place] [address] Cathryn, Krysta, DRYWALL FINISHING FOREMAN [address] [place] [address] documented as of this encounter Procedures Procedure Name Priority Date/Time Associated Diagnosis Comments POCT INFLUENZA B (ID NOW RAPID MOLECULAR) Routine 07/27/2025 1:21 PM EDT COVID-19 POCT INFLUENZA A (ID NOW RAPID MOLECULAR) Routine 07/27/2025 1:21 PM EDT COVID-19 POCT RAPID COVID ANTIGEN Routine 07/27/2025 1:21 PM EDT COVID-19 documented in this encounter Results * Influenza B (ID NOW Rapid Molecular) (07/27/2025 1:21 PM EDT) Influenza B Negative Negative, Indeterminate [facility] Swab 07/27/2025 1:21 PM EDT us Kamila Her MD POINT OF CARE TEST EN TER/EDIT ORDERABLES Final Result Performing Organization Address [facility] Co de Phone Number [facility] [address] [place] [phone] * Influenza A (ID NOW Rapid Molecular) (07/27/2025 1:21 PM EDT) Influenza A Negative Negative, Indeterminate [facility] Swab 07/27/2025 1:21 PM EDT us Kamila Her MD POINT OF CARE TEST EN TER/EDIT ORDERABLES Final Result Performing Organization Address [facility]/ZIP Co de Phone Number [facility] [address] [place] [phone] * POCT Rapid COVID Ag (07/27/2025 1:21 PM EDT) Rapid COVID Ag Positive [facility] Swab 07/27/2025 1:21 PM EDT us Kamila Her MD POINT OF CARE TEST EN TER/EDIT ORDERABLES Final Result [facility] [address] [place] [phone] documented in this encounter Visit Diagnoses Diagnosis COVID-19 documented in this encounter Additional Health Concerns Assessment Noted Time PHQ-9 Depression Total Score: 6 02/29/20 25 11:37 AM EDT documented as of this encounter Care Teams Helmet Binder Relationship Specialty Start Date End Date Krysta Lockett FNP [address] [place] [phone] PCP - General Family Medicine 10/27/22 documented as of this encounter
--- NOTE | ~2025-08-01 | XR_ITS ---
EXAMINATION: XR CHEST CLINICAL INFORMATION: cough COMPARISON: None available. TECHNIQUE: 2 views of the chest were obtained. FINDINGS: No significant abnormality is noted involving the heart, lungs, mediastinum, and soft tissues. Flowing osteophytes and or syndesmophytes are noted in the anterior thoracic spine. Disc height is preserved. XR/XR chest 2V IMPRESSION: Unremarkable examination. Degenerative changes in the thoracic spine. Electronically signed by: Heriberto Aiken MD 08/01/2025 04:44 PM EDT
[2025-08-01 15:18] VITALS: BP 160/88; PULSE 77; O2SAT 97
[2025-08-01 15:19] VITALS: BP 150/77; PULSE 83; RESP 18; TEMP 36.7; O2SAT 99
[2025-08-01 15:24] VITALS: BP 150/77; PULSE 71; RESP 18; O2SAT 99; BMI 27.7
--- NOTE | 2025-08-01 15:29 | PC.NURSE ---
70 M presents to ED with headache 10/10 and back pain since getting covid 2 weeks ago. Pt denies any CP or SOB, RR even and unlabored. Pt is A+OX4, calm, cooperative. Pt ambulates with a cane or walker at baseline. Pt sts he takes tylenol at home but it doesn't do anything for the pain.
--- NOTE | 2025-08-01 17:20 | ECG_ITS ---
Test Reason : HEADACHE Blood Pressure : */* mmHG Vent. Rate : 65 BPM Atrial Rate : 65 BPM P-R Int : 166 ms QRS Dur : 80 ms QT Int : 422 ms P-R-T Axes : 58 52 50 degrees QTcB Int : 438 ms Normal sinus rhythm Nonspecific T wave abnormality Abnormal ECG When compared with ECG of 24-Jul-2025 17:22, No significant change was found Referred By: Rey Rodriguez Electronically Signed By: Cornell Anen
--- NOTE | 2025-08-01 17:33 | ED.GENADULT ---
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 He reports his symptoms started about 2 weeks ago. He was seen here 9 days ago and diagnosed with the COVID-19. He reports his symptoms are essentially the same as they have been He denies any severe chest pain or significant shortness of breath pain He does endorse leg swelling Denies any falls or trauma to the head or neck. He reports taking Tylenol for his headache without any improvement Related Data Home Medications ?Medication ?Instructions ?Recorded ?Confirmed atorvastatin 20 mg tablet 20 mg PO BEDTIME 11/04/20 07/02/25 ascorbic acid (vitamin C) 250 mg 250 mg PO QAM 04/23/21 07/02/25 tablet pen needle, diabetic 32 gauge x #50 ea 04/23/21 07/02/25 tiotropium bromide 18 mcg capsule 1 cap inhalation DAILY 04/23/21 07/02/25 with inhalation device celebrate MVI PO DAILY 04/20/22 07/02/25 omeprazole 20 mg capsule,delayed 20 mg PO DAILY 07/28/22 07/02/25 release nebulizers 03/09/23 07/02/25 apixaban 5 mg tablet (Eliquis) 5 mg PO BID 05/02/24 07/02/25 Held on 06/19/25. Instructions: Until discussed with Dr. Solares midodrine 2.5 mg tablet 2.5 mg PO 05/02/24 07/02/25 trazodone 100 mg tablet 100 mg PO BEDTIME 05/02/24 07/02/25 folic acid 1 mg tablet 1 mg PO QAM 05/19/24 07/02/25 dulaglutide 0.75 mg/0.5 mL mg subcut .QMONDAY 06/18/25 07/02/25 [facility] Previous Rx's ?Medication ?Instructions ?Recorded ipratropium 0.5 mg-albuterol 3 mg 3 ml inhalation Q6H PRN shortness 09/12/20 (2.5 mg base)/3 mL nebulization of breath or wheezing #15 mL soln acetaminophen 500 mg tablet 1,000 mg (2 x 500 mg) PO Q6H PRN 06/16/21 (Tylenol Extra Strength) pain #30 tabs albuterol sulfate 90 mcg/actuation 2 inh inhalation Q6H PRN shortness 03/09/23 aerosol inhaler of breath or wheezing 30 days #18 grams simethicone 80 mg chewable tablet 80 mg PO BID-QID PRN abdominal 01/13/24 (Gas Relief (simethicone)) distention #90 tabs cholecalciferol (vitamin D3) 50 50 mcg PO DAILY #90 caps 08/07/24 mcg (2,000 unit) capsule fluticasone fur. 100 mcg-umeclid 1 inh inhalation DAILY 30 days #60 08/07/24 62.5 mcg-vilant 25 mcg ea inhalat.powder (Trelegy Ellipta) vitamin A palmitate 3,000 mcg 10,000 unit PO DAILY #90 caps 10/23/24 (10,000 unit) capsule zinc gluconate 30 mg tablet 30 mg PO DAILY #90 tabs 10/23/24 fondaparinux 2.5 mg/0.5 mL 2.5 mg (0.5 mL) subcut Q24H #5 mL 06/13/25 subcutaneous solution syringe Held on 06/19/25. Instructions: Until discussed with Dr. Solares ipratropium 0.5 mg-albuterol 3 mg 3 ml inhalation BID #1,620 mL 06/13/25 (2.5 mg base)/3 mL nebulization soln ondansetron 4 mg disintegrating 4 mg PO Q12H nausea and vomiting 06/13/25 tablet #20 tabs azithromycin 250 mg tablet See Rx Instructions PO .COMPLEX #6 07/24/25 (Zithromax) tabs benzonatate 200 mg capsule 200 mg PO TID PRN cough #20 caps 07/24/25 prednisone 20 mg tablet 40 mg (2 x 20 mg) PO DAILY 5 days 07/24/25 #10 tabs Allergies Allergy/AdvReac Type Severity Reaction Status Date / Time aspirin (Aspirin) Allergy Mild SWELLING Verified 08/01/25 15:25 Penicillins Allergy Mild SWELLING Verified 08/01/25 15:25 NSAIDS (Non-Steroidal Allergy Unknown Verified 08/01/25 15:25 Anti-Inflamma Review of Systems Constitutional: Constitutional: Reports body ache(s), Denies chills, Denies fever(s), Reports headache(s), Reports malaise and Reports weakness Eyes: Eyes: Denies blurry vision ENT: Denies dizziness and Reports headache(s) Cardiovascular: Cardiovascular: Denies chest pain, Reports leg edema and Denies dyspnea on exertion Respiratory: Respiratory: Denies cough and Denies dyspnea on exertion Gastrointestinal: Gastrointestinal: Denies abdominal pain, Denies nausea and Denies vomiting Musculoskeletal: Musculoskeletal: Reports back pain and Reports arthralgias Integumentary/Breasts: Skin/Breast: Denies rash Neurologic: Denies dizziness, Reports headache(s) and Reports weakness Psychiatric: Psychiatric: Denies anxiety PMFSH Past Medical History Medical History Anticoagulation overlap therapy not prescribed at discharge Chronic restrictive lung disease Pulmonary nodules COVID-19 vaccine series completed Arthritis Asthma Vitamin D deficiency HLD (hyperlipidemia) T2DM (type 2 diabetes mellitus) Anxiety Depression Venous insufficiency Hypertension COPD (chronic obstructive pulmonary disease) Surgical History History of repair of hiatal hernia Status post laparoscopic sleeve gastrectomy (06/2021) History of esophagogastroduodenoscopy (EGD) History of umbilical hernia repair H/O colonoscopy with polypectomy Family History Family History Father CVD (cardiovascular disease) Heart disease Mother Heart disease CVD (cardiovascular disease) Brother Cancer Brother Cancer Brother Heart attack Sister CVD (cardiovascular disease) Diabetes mellitus Hypertension Arthritis Social History Social History Household Members Other:: daughter Are you a primary nurse wound care to a significant other at home: No Do you presently have visiting nurse or other home services: Yes ([employer]-daughter) Alcohol intake: current Alcohol intake frequency: holidays/special occasions only Comment: no facial grimacing, medicated in pacu numerous times, pain scale explained Patient Tobacco Use Status: Former Tobacco user Tobacco use type: Cigarette Smoked in Last 30 Days: No Use of substances other than those prescribed or required for medical reasons: No Advance Directives: Yes Advance Directives on File: Yes Advance Directives Date on File: 07/23/25 Do you have a plan to hurt others: No Plan service: No Current occupational status: unemployed Physical Exam ED Vital Signs: Vital Signs - 24 hr 08/01/25 15:19 08/01/25 15:24 Temperature 98.0 F Pulse Rate 83 71 Respiratory Rate 18 18 Blood Pressure 150/77 H 150/77 H Pulse Oximetry 99 99 Oxygen Delivery Method Room Air Room Air BMI result Body Mass Index 27.7 Const General: healthy appearing, comfortable, no acute distress, alert and awake Nutritional Appearance: well nourished Orientation/consciousness: patient oriented x3 HENMT Head: Yes normocephalic and Yes atraumatic Eyes Eyelids: Yes eyelids normal Conjunctivae: conjunctivae normal Sclerae: sclerae normal Corneas: corneas normal Pupils: Equal, round and reactive pupils present EOM: EOMs intact bilaterally Neck Neck: Yes full ROM Resp Effort & Inspection: normal respiratory effort, able to speak in complete sentences, no audible wheezes and not labored Auscultation: clear to auscultation bilaterally Cardio Rate: regular rate Rhythm: regular rhythm GI Inspection: No distended Palpation (GI): Soft to palpation, not firm, nontender, no guarding and not rigid Skin General skin exam: elasticity normal Neuro General: patient oriented x3 Cranial nerves: Yes CN's II-XII intact bilaterally, Yes Equal, round and reactive pupils present and Yes Bilaterally intact EOM present Cognition (Neuro): normal cognition Extrem Other: Moving all extremities well without any obvious deformities Medications Administered Discontinued Medications Generic Name Dose Route Start Last Admin Trade Name Freq PRN Reason Stop Dose Admin Oxycodone HCl 5 mg 08/01/25 17:20 08/01/25 17:51 Oxycodone Hcl Immed Release 5 Mg Tablet PO 08/01/25 17:21 5 mg ONCE ONE Administration Medical Decision Making Medical Decision Making [facility] Narrative: 70-year-old male with a past medical history as above presents for evaluation of headache and body aches. He was positive for COVID-19 9 days ago and may still have residual syndrome. His vital signs are within normal limits, his labs are reassuring, he has a stable anemia. No leukocytosis or left shift. No significant electrolyte abnormalities warranting dimension. He has a slight elevation of AST and ALT which is consistent his baseline. His chest x-ray is clear. He has no neuro deficits on exam, he is quite well appearing. I did give him a dose of oxycodone as he can not have NSAIDs for his headache due to his anticoagulation and does not want Tylenol if you feel that does not help. I do not see any indication to order emergent CT scan of the brain at this time. Differential Diagnosis Differential Diagnoses: The differential diagnosis associated with the presentation includes Myalgias Body aches COVID-19 Rhabdomyolysis Pneumonia CHF less likely Lab Data MDM Lab Attestation statement: I reviewed the patient's lab results. No leukocytosis. The patient has a stable normocytic anemia. Normal platelet count. No significant electrolyte abnormalities warranting dimension. The patient's renal function is at his baseline despite his history of chronic kidney disease. Slight elevation of AST and ALT which is also stable with his baseline 08/01/25 17:44 08/01/25 17:44 Labs: Lab Results 08/01/25 Range/Units 17:44 WBC 5.5 (4.8-10.8) X10*3/uL RBC 3.55 L (4.60-5.80) X10*6/uL Hgb 11.2 L (14.0-18.0) g/dl Hct 33.3 L (42.0-52.0) % MCV 93.8 (80.0-98.0) fL MCH 31.5 (27.0-33.0) pg MCHC 33.6 (31.0-36.0) g/dl RDW 12.1 (11.0-16.0) % Plt Count 239 D (160-400) X10*3/uL MPV 9.5 (9.4-12.4) fL Immature Gran % (Auto) 0.5 H (0.0-0.4) % Neut % (Auto) 45.3 (45-73) % Lymph % (Auto) 39.8 (20-40) % Maries % (Auto) 8.0 (2-11) % Eos % (Auto) 6.0 H (0-4) % Baso % (Auto) 0.4 (0-2) % Lymph # (Auto) 2.2 (1.2-4.9) X10*3/uL Maries # (Auto) 0.4 (0.1-1.2) X10*3/uL Eos # (Auto) 0.3 (0.0-0.4) X10*3/uL Baso # (Auto) 0.0 (0.0-0.2) X10*3/uL Abs Immat Gran (auto) 0.03 (0.00-0.03) X10*3/uL Absolute Neuts (auto) 2.5 (2.0-8.3) x10*3/uL Absolute Nucleated RBC 0.000 (0.0-0.012) X10*3/uL Nucleated RBC % (auto) 0.0 (0.0-0.2) /100WBC Sodium 143 (135-145) mmol/L Potassium 4.5 (3.3-5.1) mmol/L Chloride 107 (96-108) mmol/L Carbon Dioxide 32 H (22-29) mmol/L Anion Gap 9 L (12-20) BUN 16 (9-16) mg/dL Creatinine 1.21 (0.5-1.4) mg/dL Estim Creat Clear Calc 64.2 Estimated GFR 59 Random Glucose 86 (60-115) mg/dL Calcium 8.8 (8.4-10.2) mg/dL Total Bilirubin 0.5 (0.0-1.0) mg/dL AST 51 H (5-37) U/L ALT 69 H (0-40) U/L Alkaline Phosphatase 104 (39-117) U/L Total Creatine Kinase 29 L (38-174) U/L NT-Pro-B Natriuret Pep 196.9 (<300) pg/mL Total Protein 5.7 L (6.5-8.0) g/dL Albumin 3.3 L (3.5-5.0) g/dL Radiology Impression Discussion of test interpretation with radiology: I have reviewed the radiologist's reading. Radiologist Impression: FINDINGS: No significant abnormality is noted involving the heart, lungs, mediastinum, and soft tissues. Flowing osteophytes and or syndesmophytes are noted in the anterior thoracic spine. Disc height is preserved. XR/XR chest 2V IMPRESSION: Unremarkable examination. Degenerative changes in the thoracic spine. Electronically signed by: Heriberto Aiken MD 08/01/2025 04:44 PM EDT RP Discharge Plan Discharge Clinical Impression: Headache Patient Disposition: Home, Self-Care Instructions: Acute Headache (ED) Additional Instructions: Your workup in the ER today was reassuring PACs and this includes your blood work, chest x-ray. You may continue use Tylenol as needed for headaches. You can not use ibuprofen due to your anticoagulation with Eliquis Follow up with your primary doctor, return for new or worsening symptoms Prescriptions: No Action Trelegy Ellipta 100-62.5-25 mcg blister with device 1 inh inhalation DAILY 30 Days Qty: 60 11RF cholecalciferol (vitamin D3) 50 mcg (2,000 unit) capsule 50 mcg PO DAILY Qty: 90 3RF vitamin A palmitate 3,000 mcg (10,000 unit) capsule 10,000 unit PO DAILY Qty: 90 3RF zinc gluconate 30 mg tablet 30 mg PO DAILY Qty: 90 3RF ipratropium-albuterol 0.5 mg-3 mg(2.5 mg base)/3 mL solution for nebulization 3 ml inhalation BID Qty: 1620 0RF ipratropium-albuterol 0.5 mg-3 mg(2.5 mg base)/3 mL solution for nebulization 3 ml inhalation Q6H PRN (Reason: shortness of breath or wheezing) Qty: 15 0RF Trulicity 0.75 mg/0.5 mL pen injector subcut .QMONDAY benzonatate 200 mg capsule 200 mg PO TID PRN (Reason: cough) Qty: 20 0RF azithromycin [Zithromax] 250 mg tablet See Rx Instructions .ROUTE .COMPLEX Qty: 6 0RF Rx Instructions: For 250 mg dose pack: take 500 mg today (day 1), then 250 mg for 4 days (days 2-5) prednisone 20 mg tablet 40 mg PO DAILY 5 Days Qty: 10 0RF atorvastatin 20 mg tablet 20 mg PO BEDTIME acetaminophen [Tylenol Extra Strength] 500 mg tablet 1,000 mg PO Q6H PRN (Reason: pain) Qty: 30 1RF tiotropium bromide 18 mcg capsule, w/inhalation device 1 cap inhalation DAILY ascorbic acid (vitamin C) 250 mg tablet 250 mg PO QAM (DME) pen needle, diabetic 32 gauge x 5/32 needle See Rx Instructions .ROUTE .MEDSUPPLY Qty: 50 Rx Instructions: As directed celebrate MVI PO DAILY (DME) nebulizers Misc See Rx Instructions .Route Rx Instructions: As directed albuterol sulfate 90 mcg/actuation HFA aerosol inhaler 2 inh inhalation Q6H PRN (Reason: shortness of breath or wheezing) 30 Days Qty: 18 12RF omeprazole 20 mg capsule,delayed release(DR/EC) 20 mg PO DAILY simethicone [Gas Relief (simethicone)] 80 mg tablet,chewable 80 mg PO BID-QID PRN (Reason: abdominal distention) Qty: 90 3RF folic acid 1 mg tablet 1 mg PO QAM Eliquis 5 mg tablet 5 mg PO BID trazodone 100 mg tablet 100 mg PO BEDTIME midodrine 2.5 mg tablet 2.5 mg PO fondaparinux 2.5 mg/0.5 mL syringe 2.5 mg subcut Q24H Qty: 5 0RF ondansetron 4 mg tablet,disintegrating 4 mg PO Q12H Qty: 20 0RF Print Language: Yoruba
[2025-08-01 17:49] LABS: MANUAL DIFF FLAG NO
[2025-08-01] MEDS: oxyCODONE HCl Immed Release 5 MG TABLET PO (17:51)
[2025-08-01 17:56] LABS: Hematocrit 33.3 % (42.0-52.0); Hemoglobin 11.2 g/dl (14.0-18.0); Imm Gran Abs Auto 0.03 X10*3/uL (0.00-0.03); Imm Gran Pct Auto 0.5 % (0.0-0.4); Lymphocytes Absolute Auto 2.2 X10*3/uL (1.2-4.9); Mean Corpuscular HGB Conc 33.6 g/dl (31.0-36.0); Mean Corpuscular Hemoglobin 31.5 pg (27.0-33.0); Mean Corpuscular Volume 93.8 fL (80.0-98.0); NRBC Abs Auto 0.000 X10*3/uL (0.0-0.012); NRBC Pct Auto 0.0 /100WBC (0.0-0.2); Platelet Count 239 X10*3/uL (160-400); Red Blood Count 3.55 X10*6/uL (4.60-5.80); White Blood Count 5.5 X10*3/uL (4.8-10.8)
--- OUTSIDE RECORDS SUMMARY | 2025-08-01 17:56 | XMS_ITS | Encounter Summary ---
Author Organization [employer] Address [address] [facility] [address] [place] [address] Care Team Providers Care Nitroglycerin Distributor Name Role Phone [place] [facility] Primary Care Provider [phone] Encounter Details Date Type Department Care Team (Late st Contact Info) Description 09/01/[address] [facility] MED[facility] [address] [place], [place] [id number] [place] [facility] [address] [place] [address] Social History Tobacco Use Types Packs/Day Years [...] Description 08/07/2025 1:30 PM EDT Medication Management [facility] [address] [place] [phone] Kraig Martines, PharmD [address] [place] [address] 08/08/2025 9:15 AM EDT Office Visit [facility] [address] [place] [phone] Krysta Lockett FNP [address] [place] [address] documented as of this encounter Visit Diagnoses Not on filedocumented in this encounter Additional Health Concerns Assessment Noted Time PHQ-9 Depression Total Score: 0 12/21/19 23 10:22 AM EST documented as of this encounter Care Teams Nitroglycerin Distributor Relationship Specialty Start Date End Date Krysta Lockett FNP [address] [place] [phone] PCP - General Family Medicine 10/27/22 documented as of this encounter
--- OUTSIDE RECORDS SUMMARY | 2025-08-01 17:56 | XMS_ITS | Encounter Summary ---
Author Organization [employer] Address [address] [place] [address] 7[address] [place] [address] Care Team Providers Care Nail Specialist Name Role Phone Krysta Lockett Primary Care Provider [phone] Encounter Details Date Type Department Care Team (Late st Contact Info) Description 11/18/2022 Orders Only [facility] MED[facility]INE [address] [place] [phone] Amanda Haynes LPN Social History Tobacco Use [...] Description 08/07/2025 1:30 PM EDT Medication Management [facility] [address] [place] [phone] Kraig Martines, PharmD [address] [place] [phone] 08/08/2025 9:15 AM EDT Office Visit [facility] [address] [place] [phone] Krysta Lockett FNP [address] [place] [address] documented as of this encounter Visit Diagnoses Not on filedocumented in this encounter Care Teams Nail Specialist Relationship Specialty Start Date End Date Krysta Lockett FNP [address] [place] [address] PCP - General Family Medicine 10/27/22 documented as of this encounter
--- OUTSIDE RECORDS SUMMARY | 2025-08-01 17:56 | XMS_ITS | Encounter Summary ---
Author Organization [employer] Address [address] [facility] 7[address] [place] [address] Care Team Providers Care Merchandise Displayer Name Role Phone Krysta Lockett ASSOCIATE VICE PRESIDENT Primary Care Provider [phone] Encounter Details Date Type Department Care Team (Late st Contact Info) Description 09/24/2023 Abstract [facility] [address] [place], [place] [phone] Richa Rehman Social History Tobacco Use Types [...] Description 08/07/2025 1:30 PM EDT Medication Management [facility] [address] [place] [phone] Kraig Martines, PharmD [address] [place] [address] 08/08/2025 9:15 AM EDT Office Visit [facility] [address] [place] [address] Krysta Lockett FNP [address] [place] [phone] documented as of this encounter Visit Diagnoses Not on filedocumented in this encounter Additional Health Concerns Assessment Noted Time PHQ-9 Depression Total Score: 0 12/21/19 23 10:22 AM EST documented as of this encounter Care Teams Merchandise Displayer Relationship Specialty Start Date End Date Krysta Lockett FNP [address] [place] [phone] PCP - General Family Medicine 10/27/22 documented as of this encounter
--- OUTSIDE RECORDS SUMMARY | 2025-08-01 17:56 | XMS_ITS | Encounter Summary ---
Author Organization [employer] Address [address] [place] [address] 7[address] [place] [address] Care Team Providers Care Voice Professor Name Role Phone Roberto Carlos Coleman MD Primary Care Provider Ivetks minoo [place] [facility] Primary Care Provider [phone] Encounter Details Date Type Department Care Team (Latest Contact Info) Description 12/01/2019 Abstract [facility] CONVERSIONS Dental, Provider, DDS Social History Tobacco [...] Upcoming Encounters Date Type Department Care Team ( st Contact Info) Description 08/07/2025 1:30 PM EDT Medication Management [facility] MEDICINE [address] [place] [phone] Kraig Martines, PharmD [address] [place] [phone] 08/08/2025 9:15 AM EDT Office Visit [facility] MEDICINE [address] [place] [phone] [place] [facility] [address] [place] [address] documented as of this encounter Visit Diagnoses Not on filedocumented in this encounter Care Teams Voice Professor Relationship Specialty Start Date End Date Roberto Carlos Coleman MD PCP - General Family Medicine 04/19/20 10/26/22 GriffinKrysta FNP [address] [place] [phone] PCP - General Family Medicine 10/27/22 documented as of this encounter
--- OUTSIDE RECORDS SUMMARY | 2025-08-01 17:56 | XMS_ITS | Encounter Summary ---
Author Organization [facility] Address [address] [facility] [facility] [address] [place] [address] Encounters * CPT with Medical instED at [facility] on 2025-07-29 mbr's positive for covid experiencing CR/cough/back pain fever/chills increased SOB with Hx of COPDis requesting [facility] visit for evaluation. denies any CP/N/V. Protocol Used: COVID-19 - Diagnosed or Suspected Protocol-Based Disposition: Consider DONNELL Purdy Community clinician, MD/OPERATIONS PROJECT MANAGER triage, PCP, or Urgent Care Visit within 4 Hours Positive Triage Question: * MILD difficulty breathing (e.g., minimal/no SOB at rest, SOB with walking, pulse < 100) Negative Triage Questions: * SEVERE difficulty breathing (e.g., struggling for each breath, speaks in single words) * Bluish (or maguire) lips or face now * SEVERE or constant chest pain or pressure (Exception: Mild central chest pain, present only when coughing.) * Chest pain or pressure (Exception: MILD central chest pain, present only when coughing.) { reasonForRequest : , patientReports : , denies&quot ;:[], chiefComplaints : Back Pain, Breathing Problems, Cough, Fever, Headache, Weakness , pmh : Chronic Obstructive Pulmonary Disease (COPD), Diabetes Mellitus Type2, Gastroesophageal Reflux Disease (GERD), Hyperthyroidism , allergies : Aspirin, Penicillins, NSAIDS (Non-Steroidal Anti- Inflammatory Drug) , otherAllergies :null,& quot;painAssessment : , visitOutcome : , additionalComments : HPI reviewed. } Was dispatched for a 70 Y/O male complaining of back pain, headache, and general body aches. UOA PTwas found sitting on his couch. PT is A/Ox4. PT is Yakut speaking only, [employer] wood services were used. PT reported he recently had Covid, and is complaining of a headache that started last night along with this back pain. PT vitals were obtained, and an assessment was performed. PT HEENT, JVD, pupils, and skin were normal. PT lung sounds were clear with bilateral chest rise and fall. PT ABD area was soft and non tender. PT has normal CSMs in all his extremities. PT was tested for Covid, and flu, both negative. Nothing remarkable was found upon completion of assessment. PT denied any nausea,or vomiting. PT did report he does feel more SOB when walking. PT SPO2, and HR had no change when PT was walked back and forth in his apartment. [facility] was contacted, [facility] requested a BMP to be done on the PT for lab check. [facility] was informed there were no medics available at the time, [facility] is okay with the PT being seen later today by another medic. [facility] was contacted, [facility] is sending a medic when available. [facility] cleared. [facility] responds to the listed address to perform a bmp for this pt who was evaluated earlier today by [facility]. [facility] at that time wanted a BMP to check pt's K+ and Na+ levels due to him being COVID positive for the past 8-9 days and his PmHx of kidney issues. Upon arrival on scene, pt opens the door to let [facility] inside. He is fully conscious and alert and ambulating through his small apartment unencumbered.[facility] contacts [facility] and confirms the order for BMP. IV access is obtained w/ a 21ga butterfly in the Rhand using aseptic technique and blood is drawn for BMP. Results are uploaded and [facility] is contacted again. [facility] orders 40mEq K+ PO for pt and stresses the need for hydration. [facility] administers 20mEq x2 tablets PO to pt and encourages him to stay hydrated by drinking water. Pt takes the pills and has nofurther questions for [facility]. Please see attached BLS note for remaining assessment. [facility] is clear. Report completed by TUNDE Wright [id number]. IV_(FLUIDS_AND/OR_MEDICATION), MEDICATION_IM, ORAL_MEDICATION, EKG, POC_FLU_STREP, COVID_TEST, WOUND_CARE Written by [facility] on 2025-07-29
--- OUTSIDE RECORDS SUMMARY | 2025-08-01 17:56 | XMS_ITS | Clinical Summary ---
Author Organization [employer] Address [address] [place] [address] [address] [place] [address] Care Team Providers Care Wastewater Treatment Plant Supervisor Name Role Phone Krysta Lockett SENIOR ABAP DEVELOPER Primary Care Provider Allergies Active Allergy Reactions [...] ns:Chronic obstructive pulmonary disease, unspecified COPD type ([facility]) INHALE 1 PUFF TWICE DAILY. RINSE MOUTH AFTER USING. 60 each 11 024 Active glucose 4 g chewable tabletIndicatio ns:Type 2 diabetes mellitus with hypoglycemia without coma, without long-term current use of insulin ([facility]) Chew 4 tablets (16 g) if needed for low blood sugar. 50 tablet 12 Active Diclofenac Sodium 1 % gelIndications: Other chronic pain Apply topically to affected areas twice daily 150 g Active Continuous Glucose Sensor (FreeStyle Iglesia 2 Sensor) miscIndications :Type 2 diabetes mellitus with hypoglycemia without coma, without long-term current use of insulin ([facility]) Apply 1 sensor every 14 days 2 each 2 024 Active Continuous Glucose Business Trainer (FreeStyle Iglesia 2 Stanton) deviceIndicatio ns:Type 2 diabetes mellitus with hypoglycemia without coma, without long-term current use of insulin ([facility]) Scan sensor every 8 hours 1 each Active folic acid (Folvite) 1 MG tabletIndicatio ns:Stage 3a chronic kidney disease ([facility]) TAKE 1 TABLET BY MOUTH EVERY MORNING [...] AT BEDTIME 30 tablet 5 025 Active Trulicity 0.75 MG/0.5ML solution auto-injectorIn dications:Type 2 diabetes mellitus with hypoglycemia without coma, without long-term current use of insulin (CMS/HCC) INJECT ONE PEN (=0.75MG) SUBCUTANEOUSLY ONCE A WEEK DIRECTED 2 mL 1 025 Active apixaban (Eliquis) 5 MG tabletIndicatio ns:Acute deep vein thrombosis (DVT) of other vein of lower extremity, unspecified laterality (CMS/HCC) TAKE 1 TABLET BY MOUTH TWICE DAILY ONCE EVERY MORNING AND ONCE EVERY NIGHT AT BEDTIME 60 tablet 3 025 Active Eliquis 5 MG tabletIndicatio ns:Acute deep vein thrombosis (DVT) of other vein of lower extremity, unspecified laterality (CMS/HCC) TAKE 1 TABLET BY MOUTH TWICE DAILY ONCE EVERY MORNING AND ONCE EVERY NIGHT AT BEDTIME 60 tablet 3 025 2024 Discontinued(R eorder (will not trigger notification to Pharmacy)) Active Problems Problem Noted Date Diagnosed Date COVID-19 07/27/2025 Assessment & Plan (07/27/2025 1:52 PM EDT): In light that patient still positive for COVID-19 I advised to continue to drink plenty of fluids and rest and he may return back to his adult program in 5 days I also advise if symptoms persist or worse to come back for reevaluation Mild depression 02/28/2025 Elevated blood pressure reading [...] no improvement -gave today to pt # [id number] of his vascular office to call and reschedule apt --I called today as well Dr Beckham's office and left my phone number for a call back from vascular -referred to cards to r/o cardiac etiology -tylenol prn x pain in legs -raise legs -continue use of pneumatic compression -alarm signs and symptoms explained Venous insufficiency 12/23/2022 Overview (12/23/2022): Followed by [facility] vascular Negative LE ultrasound 11/2022 Assessment & [...] vein thrombosis) 12/15/2022 Overview (12/23/2022): Followed by [facility] Dr. 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 Started on [...] currently but pt thinks is associated w jay Does reports orthopnea EKG today : HR 50, NSR no ischemic findings -referred today to final armature tester x complete eval of echocardiogram x [...] organization. Date Type Department Care Team Description 07/31/2025 Patient Outreach [facility] [address] [place] [phone] Krysta Lockett FNP Pre-visit Planning (SDOH screening completed on 02/28/2025) 07/30/2025 Orders Only [address] [address] Argentina Huynh MD Type 2 diabetes mellitus ([facility]) (Primary Dx) 07/27/2025 1:00 PM EDT Office Visit [facility] [address] [place] [address] Kamila Emerson MD COVID-19 07/27/2025 Travel 07/25/2025 Refill [facility] CHC MED & PEDS [address] [place], [place] [phone] Krysta Lockett FNP Acute deep vein thrombosis (DVT) of other vein of lower extremity, unspecified laterality ([facility]) 07/23/2025 Orders Only GENERIC EXTERNAL DATA DEPARTMENT Provider, Generic External Data 07/02/2025 Orders Only GENERIC EXTERNAL DATA DEPARTMENT Provider, Generic External Data 06/26/[address] [address] Krysta Lockett FNP Appointment Request 06/22/2025 Refill [facility] [address] [place] [address] Krysta Locktet FNP Type 2 diabetes mellitus with hypoglycemia without coma, without long-term current use of insulin ([facility]) 06/20/2025 Orders Only GENERIC EXTERNAL [...] 3.2 oz) 07/27/2025 12:58 PM EDT Height 177.8 cm (5' 10 ) 03/26/2025 5:22 PM EDT Body Mass Index 27 03/26/2025 5:22 PM EDT Plan of Treatment Upcoming Encounters Date Type Department Care Team (Late st Contact Info) Description 08/07/2025 1:30 PM EDT Medication Management [facility] [address] [place] [address] Kraig Martines, PharmD [address] [place] [address] 08/08/2025 9:15 AM EDT Office Visit [facility] [address] [place] [address] [place], Krysta, SENIOR ABAP DEVELOPER [address] [place] [address] Health Maintenance Due Date Last Done Comments [...] ANTIGEN Routine 07/27/2025 1:21 PM EDT COVID-19 COVID-19 ID NOW (MENDOZA) Routine 07/23/2025 8:51 [...] Recently Relevant to Health Maintenance Results * Influenza B (ID NOW Rapid Molecular) (07/27/2025 1:21 PM EDT) [facility] Negative Negative, Indeterminate [facility] Swab 07/27/2025 1:21 PM EDT us Kamila Her MD POINT OF CARE TEST EN TER/EDIT ORDERABLES Final Result Performing Organization Address City/[facility]/ZIP Co de Phone Number [facility] [address] [place] [phone] * Influenza A (ID NOW Rapid Molecular) (07/27/2025 1:21 PM EDT) [facility] Influenza A Negative Negative, Indeterminate [facility] Swab 07/27/2025 1:21 PM EDT us Kamila Her MD POINT OF CARE TEST EN TER/EDIT ORDERABLES Final Result Performing Organization Address [facility] Co de Phone Number [facility] [address] [place] [phone] * POCT Rapid COVID Ag (07/27/2025 1:21 PM EDT) Pathologist [facility] Rapid COVID Ag Positive [facility] Swab 07/27/2025 1:21 PM EDT us Kamila Her MD POINT OF CARE TEST EN TER/EDIT ORDERABLES Final Result Performing Organization Address [facility]/ZIP Co de Phone Number [facility] [address] [place] [phone] * (ABNORMAL) COVID-19 ID NOW (MENDOZA) (07/23/2025 8:51 AM EDT) IDNOW SERIAL# [id number] [facility] COVID-19 TEST Positive (A) Negative [facility] COVID-19 NOTE See Note [facility] Comment: Results are for the identification of SARS-CoV2 RNA. TheSARS-CoV2 RNA is generally detectable in respiratory samplesduring the acute phase of infection. Positive results areindicative of the presence of SARS-CoV-2 RNA; clinicalcorrelation with patient history and other diagnosticinformation is necessary to determine patient infectionstatus. Positive results do not rule out bacterial infectionor co- infection with other viruses.Testing facilities within the [facility] and itsterritories are required to report all [...] GNOSTICS ORDERABLES Final Result Performing Organization Address City/[facility]/ZIP Co de Phone Number [facility] [address] [place] [phone] * High Sensitivity Troponin I (07/23/2025 8:50 AM EDT) [facility] TROPONIN I HIGH SENSITIVITY 4.3 <3.5 - 35.0 ng/L [facility] Comment:The Mendoza high sens itivity Troponin-I results should beused in conjunction with other diagnostic information suchas ECG, clinical observations and information, and patientsymptoms to aid in the diagnosis of NH. 07/23/2025 8:50 AM EDT 07/23/2025 8:55 AM EDT Generic External Data Provider LAB BLOOD ORDERAB LES Final Result Performing Organization Address [facility]/ZIP Co de Phone Number [facility] [address] [place] [phone] * Lipase (07/23/2025 8:50 AM EDT) [facility] Lipase 9 8 - 78 U/L [facility] 07/23/2025 8:50 AM EDT 07/23/2025 8:55 AM EDT Generic External Data Provider LAB BLOOD ORDERAB LES Final Result Performing Organization Address [facility] Co de Phone Number [facility] [address] [place] [phone] * (ABNORMAL) Comprehensive Metabolic Panel (07/23/2025 8:50 AM EDT) [facility] Sodium 141 135 - 145 mmol/L [facility] Potassium 4.0 3.3 - 5.1 mmol/L [facility] Chloride 106 96 - 108 mmol/L [facility] Carbon Dioxide 28 22 - 29 mmol/L [facility] Anion Gap 11(L) 12 - 20 [facility] Urea Nitrogen (BUN) 14 9 - 16 mg/dL [facility] Creatinine, Serum 1.39 0.5 - 1.4 mg/dL [facility] Creatinine Clr Calc Pharmacy 54.2 [facility] Comment:eGFR (calculated fro m the MDRD study equation) and eCrCl(calculated from the Cockcroft-Gault equation) are based ondifferent parameters and may not yield comparable results.If eCrCl result is absurd, please check patient'sheight/weight. Estimated Glomerular Filt Rate 51 [facility] Comment:Chronic Kidney Disea se: Estimated GFR < 60 mL/min/1.62e5Amgizd Kidney Disease: Estimated GFR < 15 mL/min/1.73m2 Glucose 79 60 - 115 mg/dL [facility] Calcium 8.4 8.4 - 10.2 mg/dL [facility] Bilirubin, Total 1.1(H) 0.0 - 1.0 mg/dL [facility] Aspartate Amino Transferase 38(H) 5 - 37 U/L [facility] Alanine Aminotransferase 38 0 - 40 U/L [facility] Total Protein 6.0(L) 6.5 - 8.0 g/dL [facility] Albumin Level 3.5 3.5 - 5.0 g/dL [facility] Alkaline Phosphatase 121(H) 39 - 117 U/L [facility] 07/23/2025 8:50 AM EDT 07/23/2025 8:55 AM EDT us Generic External Data Provider LAB BLOOD ORDERAB LES Final Result [facility] [address] [place] [phone] * (ABNORMAL) CBC auto differential (07/23/2025 8:04 AM EDT) Only the most recent of2 resultswithin the time period is included. White Blood Count 5.0 4.8 - 10.8 X10*3/uL [facility] Red Blood Count 3.73(L) 4.60 - 5.80 X10*6/uL [facility] Hemoglobin 11.5(L) 14.0 - 18.0 g/dl [facility] Hematocrit 35.6(L) 42.0 - 52.0 % [facility] Mean Corpuscular Volume 95.4 80.0 - 98.0 fL [facility] Mean Corpuscular Hemoglobin 30.8 27.0 - 33.0 pg [facility] Mean Corpuscular HGB Conc 32.3 31.0 - 36.0 g/dl [facility] Red Cell Distribution Width 11.9 11.0 - 16.0 % [facility] Platelet Count 180 160 - 400 X10*3/uL [facility] Mean Platelet Volume 11.6 9.4 - 12.4 fL [facility] Neutrophils Percent Auto 70.4 45 - 73 % [facility] Imm Gran Pct Auto 0.4 0.0 - 0.4 % [facility] Lymphocytes Percent Auto 17.3(L) 20 - 40 % [facility] Monocytes Percent Auto 9.3 2 - 11 % [facility] Eosinophils Percent Auto 2.2 0 - 4 % [facility] Basophils Percent Auto 0.4 0 - 2 % [facility] NRBC Pct Auto 0.4(H) 0.0 - 0.2 /100WBC [facility] Neutrophils Absolute Auto 3.5 2.0 - 8.3 x10*3/uL [facility] Imm Gran Abs Auto 0.02 0.00 - 0.03 X10*3/uL [facility] Lymphocytes Absolute Auto 0.9(L) 1.2 - 4.9 X10*3/uL [facility] Monocytes Absolute Auto 0.5 0.1 - 1.2 X10*3/uL [facility] Eosinophils Absolute Auto 0.1 0.0 - 0.4 X10*3/uL [facility] Basophils Absolute Auto 0.0 0.0 - 0.2 X10*3/uL [facility] NRBC Abs Auto 0.020(H) 0.0 - 0.012 X10*3/uL [facility] 07/23/2025 8:04 AM EDT 07/23/2025 8:07 AM EDT Generic External Data Provider LAB BLOOD ORDERAB LES Edited Result - Final Performing Organization Address [facility] Co de Phone Number [facility] [address] [place] [phone] * Creatinine, Serum (07/02/2025 1:49 PM EDT) Creatinine, Serum 1.38 0.5 - 1.4 mg/dL [facility] Estimated Glomerular Filt Rate 51 [facility] Comment:Chronic Kidney Disea se: Estimated GFR < 60 mL/min/1.31a2Cikqvv Kidney Disease: Estimated GFR < 15 mL/min/1.73m2 07/02/2025 1:49 PM EDT 07/02/2025 1:49 PM EDT Generic External Data Provider LAB BLOOD ORDERAB LES Final Result Performing Organization Address [facility] Co de Phone Number [facility] [address] [place] [phone] * BUN (Blood Urea Nitrogen) (07/02/2025 1:49 PM EDT) Urea Nitrogen (BUN) 16 9 - 16 mg/dL [facility] 07/02/2025 1:49 PM EDT 07/02/2025 1:49 PM EDT Generic External Data Provider LAB BLOOD ORDERAB LES Final Result Performing Organization Address [facility] Co de Phone Number [facility] [address] [place] [phone] * Hemoglobin A1c (07/02/2025 1:49 PM EDT) Hemoglobin A1c 5.1 <6.0 % [facility] Comment:Hemoglobin A1C Refer ence Range Adults: 4.8 - 6.0 % Non diabetic: < 6.0 % Goal: < 7.0 %Additional Action Suggested: > 8.0 %Note: Hemoglobin A1c results are invalid for patients with abnormal amounts of HbF. Blood transfusions may impact the HbA1c concentration in the patient sample. Estimated Average Glucose 100 mg/dL [facility] Comment:eAG = Estimated ave rage glucose which is %A1C expressed asaverage glucose, using the formula of the P2Y-VapdkitPpmksqe Glucose study (ADAG), Diabetes Care, Vol.31,#8,2007 07/02/2025 1:49 PM EDT 07/02/2025 1:49 PM EDT Generic External Data Provider LAB BLOOD ORDERAB LES Final Result Performing Organization Address [facility]/ZIP Co de Phone Number [facility] [address] [place] [phone] * Electrolyte Panel (07/02/2025 1:49 PM EDT) Sodium 142 135 - 145 mmol/L [facility] Potassium 4.0 3.3 - 5.1 mmol/L [facility] Chloride 107 96 - 108 mmol/L [facility] Carbon Dioxide 27 22 - 29 mmol/L [facility] Anion Gap 12 12 - 20 [facility] 07/02/2025 1:49 PM EDT 07/02/2025 1:49 PM EDT Generic External Data Provider LAB BLOOD ORDERAB LES Final Result Performing Organization Address [facility] Co de Phone Number [facility] [address] [place] [phone] * (ABNORMAL) Protein Creatinine Ratio, Urine (07/02/2025 1:41 PM EDT) Creatinine, Urine 259.64 mg/dL [facility] Protein, Total, Random Urine 23(H) <12 mg/dL [facility] Protein/Creati nine Ratio, Ur 0.09 <0.2 [facility] Comment:The spot urine prote in:creatinine ratio may increase to 0.3during normal . 07/02/2025 1:41 PM EDT 07/02/2025 2:19 PM EDT Generic External Data Provider LAB URINE ORDERAB LES Final Result Performing Organization Address City/[facility] Co de Phone Number [facility] [address] [place] [phone] * (ABNORMAL) Glucose, Whole Blood (06/20/2025 7:35 AM EDT) Only the most recent of4 resultswithin the time period is included. Glucose, Whole Blood 133(H) 60 - 115 mg/dL [facility] Comment:METER #: [id number] 06/20/2025 7:35 AM EDT 06/20/2025 7:38 AM EDT Generic External Data Provider LAB BLOOD ORDERAB LES Final Result Performing Organization Address [facility] Co de Phone Number [facility] [address] [place] [phone] * Slide Review (06/20/2025 5:09 AM EDT) Slide Review VERIFIED [facility] 06/20/2025 5:09 AM EDT 06/20/2025 5:43 AM EDT Generic External Data Provider LAB BLOOD ORDERAB LES Final Result Performing Organization Address [facility] Co de Phone Number [facility] [address] [place] [phone] * (ABNORMAL) Hepatic Function Panel (06/20/2025 5:09 AM EDT) Bilirubin, Total 0.7 0.0 - 1.0 mg/dL [facility] Bilirubin, Direct 0.3 0.0 - 0.5 mg/dL [facility] Aspartate Amino Transferase 37 5 - 37 U/L [facility] Alanine Aminotransferase 25 0 - 40 U/L [facility] Total Protein 6.0(L) 6.5 - 8.0 g/dL [facility] Albumin Level 3.5 3.5 - 5.0 g/dL [facility] Alkaline Phosphatase 111 39 - 117 U/L [facility] 06/20/2025 5:09 AM EDT 06/20/2025 5:43 AM EDT us Generic External Data Provider LAB BLOOD ORDERAB LES Final Result [facility] [address] [place] [phone] * (ABNORMAL) Basic Metabolic Panel (06/20/2025 5:09 AM EDT) Only the most recent of2 resultswithin the time period is included. Sodium 138 135 - 145 mmol/L [facility] Potassium 5.0 3.3 - 5.1 mmol/L [facility] Chloride 105 96 - 108 mmol/L [facility] Carbon Dioxide 24 22 - 29 mmol/L [facility] Anion Gap 14 12 - 20 [facility] Urea Nitrogen (BUN) 20(H) 9 - 16 mg/dL [facility] Creatinine, Serum 1.12 0.5 - 1.4 mg/dL [facility] Creatinine Clr Calc Pharmacy 65.2 [facility] Comment:eGFR (calculated fro m the MDRD study equation) and eCrCl(calculated from the Cockcroft-Gault equation) are based ondifferent parameters and may not yield comparable results.If eCrCl result is absurd, please check patient'sheight/weight. Estimated Glomerular Filt Rate >60 [facility] Comment:Chronic Kidney Disea se: Estimated GFR < 60 mL/min/1.48l0Aipsam Kidney Disease: Estimated GFR < 15 mL/min/1.73m2 Glucose 154(H) 60 - 115 mg/dL [facility] Calcium 8.7 8.4 - 10.2 mg/dL [facility] 06/20/2025 5:09 AM EDT 06/20/2025 5:43 AM EDT Generic External Data Provider LAB BLOOD ORDERAB LES Final Result Performing Organization Address [facility] de Phone Number [facility] [address] [place] [phone] * (ABNORMAL) Hemoglobin and Hematocrit (06/19/2025 4:21 PM EDT) Hemoglobin 11.4(L) 14.0 - 18.0 g/dl [facility] Hematocrit 34.4(L) 42.0 - 52.0 % [facility] 06/19/2025 4:21 PM EDT 06/19/2025 4:24 PM EDT Generic External Data Provider LAB BLOOD ORDERAB LES Final Result Performing Organization Address [facility] de Phone Number [facility] [address] [place] [phone] * Gross and Microscopic Level 3 (06/19/2025 3:06 PM EDT) 06/19/2025 3:06 PM EDT 06/20/2025 8:35 AM EDT Narrative [facility] - 06/21/2025 3:22 PM EDT ----- ------- Name: John Baix Age/Sex: 70/M : 1955 Unit#: [id number] Attend Dr: Lennox Solares MD Re06/19/25 [place] [facility] [place] [facility] Disch: ----- ------- SPEC : [id number] RECD: 06/20/25 STATUS: ELVIRA DE LUNA NUM: [id number] VIOLETTA: 06/19/[address]: Lennox Solares MD ENTERED: 06/20/25 SP TYPE: Surgical OTHR DR: [facility] ORDERED: Gross Micro L3 Diagnosis Gallbladder, [...] measuring up to 0.15 cm in thickness. [facility] Consultant sections are submitted in a cassette labeled A1 to include the margin of resection of the cystic duct. CEDS IHC S/NG Disclaimer NOTE: Unless otherwise stated, all tissue is formalin-fixed and paraffin-embedded. Some or all of the immunohistochemical tests reported herein may have been developed and their performance characteristics determined by Laboratory. They have not been cleared or [...] Armando Ba Age/Sex: 70/M : 1955 Unit#: [id number] Attend Dr: Lennox Solares MD Re06/19/25 Status: [facility] Location: [facility] Disch: ----- ------- SPEC : [id number] RECD: 06/20/25 STATUS: ELVIRA COLEZari NUM: [id number] VIOLETTA: 06/19/25-[address] [facility] [address]: Lennox Solares MD ENTERED: 06/20/25 SP TYPE: Surgical OTHR DR: [facility] ORDERED: Gross Micro L3 Copies To: [address] [address] Lennox Solares MD [facility] Weight Management Program [address] [place] [phone] ----- ------- Signed (signature on file) Callao Rafalowski, MD 06/21/25 1522 ----- ------- END OF REPORT Generic External Data Provider LAB CYTOLOGY ORDClaude ZARCO Final Result Performing Organization Address [facility]/State/ZIP Co de Phone Number [facility] [address] [place] [phone] * Lipid Panel, Standard (03/01/2025 2:50 PM EDT) Triglycerides 57 <150 mg/dL [facility] Comment:Desirable Triglyceri de: less than 150 mg/dLBorderline High Triglyceride 150-199 mg/dLHigh Triglyceride: 200-499 mg/dLVery High Triglyceride: greater than or equal to 5OO mg/dL Cholesterol 177 <200 mg/dL [facility] Comment:Desirable Cholestero l: less than 200 mg/dLBorderline High Cholesterol: 200-239 mg/dLHigh Cholesterol: greater than 239 mg/dL LDL Cholesterol Calculated 94 <100 mg/dL [facility] Comment:Desirable LDL: less than 100 mg/dLNear Optimal/Above Optimal LDL: 110- 129 mg/dLBorderline High LDL: 130-159 mg/dLHigh LDL: 160-189 mg/dLVery High LDL: greater than or equal to 190 mg/dL HDL Cholesterol 72 >40 mg/dL [facility] Comment:Desirable HDL: great er than 40 mg/dL Note: This HDL assay may give artificially low results in patients with liver disease. Blood Venous blood specimen / Unknown 03/01/2025 2:50 PM EDT 03/01/2025 3:55 PM EDT [facility] Chika fry - Final [facility] [address] [place] [phone] * Hepatitis C Antibody with Reflex to HCV, RNA, Quantitative, Real-Time PCR (12/15/2022 9:44 AM EST) Hepatitis C Antibody NON-REACT SIDDHARTH NON-REACT SIDDHARTH [facility] [place] [employer] Index <0.02 <1.00 LSEO Comment: HCV antibody was non-reactive. There is no laboratory evidence of HCV infection. In most cases, no further action is required. However, if recent HCV exposure is suspected, a test for HCV RNA (test code 98710) is suggested. For additional information please refer to http://education.[employer] a Boat/faq/VCL53g6 (This link is being provided for informational/ educational purposes only.) Blood Venous blood specimen / Unknown 12/15/2022 9:44 AM EST 12/15/2022 9:45 AM EST Narrative [facility] - 12/16/2022 2:26 PM EST FASTING:UNKNOWN FASTING: UNKNOWN [facility] SENIOR ABAP DEVELOPER LAB BLOOD ORDERABLES Final Re sult Performing Organization Address City/[facility] Co de Phone Number [facility] [address] [facility], [facility], [place] [address] [employer] [place] [employer] [address] , ([address]) [place] [address] * Colonoscopy (07/18/2019 7:44 AM EDT) Historical Provider HEALTH MAINTENANCE Final Result from Last 3 Months or Most Recently Relevant to Health Maintenance Insurance [employer] (HMO D-SNP) [address]UAN [address]SH[address] [id number] [place] [address] Care Teams Wastewater Treatment Plant Supervisor Relationship Specialty Start Date End Date Krysta Lockett FNP [address] [place] [address] PCP - General Family Medicine 10/27/22
--- OUTSIDE RECORDS SUMMARY | 2025-08-01 17:56 | XMS_ITS | Encounter Summary ---
Author Organization [employer] Address [address] [facility] 7t [place] [address] Care Team Providers Care Fire Hose Curer Name Role Phone Krysta Lockett CURATOR OF EDUCATION Primary Care Provider [phone] Encounter Details Date Type Department Care Team (Latest Contact Info) Description 07/27/2025 Travel Social History Tobacco Use Types Packs/Day [...] Medication Management [facility] MEDICINE [address] [place] [phone] Kraig Martines, PharmD [address] [place] [address] 08/08/2025 9:15 AM EDT Office Visit [facility] [address] [place] [address] Krysta Lockett FNP 230 [place] [address] documented as of this encounter Visit Diagnoses Not on filedocumented in this encounter Additional Health Concerns Assessment Noted Time PHQ-9 Depression Total Score: 6 02/29/20 25 11:37 AM EDT documented as of this encounter Care Teams Fire Hose Curer Relationship Specialty Start Date End Date Krysta Lockett FNP [address] [place] [address] PCP - General Family Medicine 10/27/22 documented as of this encounter
--- OUTSIDE RECORDS SUMMARY | 2025-08-01 17:56 | XMS_ITS | Encounter Summary ---
Author Organization [employer] Address [address] [facility] 7t [place] [address] Care Team Providers Care Bolter Helper Name Role Phone Krysta Lockett MARKETING AUTOMATION SPECIALIST Primary Care Provider [phone] Reason for Referral * Consultation (Routine) - Authorized Specialty Diagnoses / Procedures Referred By Contreras donald Referred To Contact Pharmacy Diagnoses Type 2 diabetes mellitus (CMS/HCC) Argentina Huynh MD [address] [place] [address] Phone: tel: fax: Referral ID Status Reason Start Date Expiration Date Visits Requested Visits Authorized [id number] Authorized Continuity of Care 07/30/2025 07/30/2026 6 6 Encounter Details Date Type Department Care Team (Late st Contact Info) Description 07/30/2025 Orders Only [facility] MEDICINE [address] [place] [address] [phone] Argentina Huynh MD [address] [place], [place] [phone] Type 2 diabetes mellitus (CMS/HCC) (Primary Dx) Social History Tobacco Use Types Packs/Day Years [...] Description 08/07/2025 1:30 PM EDT Medication Management [facility] MEDICINE [address] [place] [address] Kraig Martines, PharmD [address] [place] [address] 08/08/2025 9:15 AM EDT Office Visit [facility] MED[facility]INE [address] [place] [address] Krysta Lockett FNP [address] [place] [address] Scheduled Referrals Name Type Priority Associated Diagnoses Orde r Schedule Referral to Pharmacy MTM Outpatient Referral Routine Type 2 diabetes mellitus ([facility]/HCC) Ordered: 07/30/2025 documented as of this encounter Visit Diagnoses Diagnosis Type 2 diabetes mellitus (CMS/HCC)- Primary documented in this encounter Additional Health Concerns Assessment Noted Time PHQ-9 Depression Total Score: 6 02/29/20 25 11:37 AM EDT documented as of this encounter Care Teams Bolter Helper Relationship Specialty Start Date End Date Krysta Lockett FNP [address] [place] [address] PCP - General Family Medicine 10/27/22 documented as of this encounter
--- OUTSIDE RECORDS SUMMARY | 2025-08-01 17:56 | XMS_ITS | Continuity of Care Document ---
Author Name [facility], Medical Address [address] [place] [address] Organization Unknown Address [address] [place] [address] Medications No known medications Problems No known problems
--- OUTSIDE RECORDS SUMMARY | 2025-08-01 17:56 | XMS_ITS | Encounter Summary ---
Author Organization [employer] Address [address] [facility] 7t [place] [address] Care Team Providers Care Assistant Field Hockey Coach Name Role Phone [facility] [facility] Primary Care Provider [phone] Reason for Visit * Reason Comments Med Refill Encounter Details Date Type Department Care Team ([facility] st Contact Info) Description 11/01/2023 Refill [facility] MEDICINE [address] [place], [place] [phone] [facility] [address] [place] [address] Dyspepsia Social History Tobacco Use Types Packs/Day [...] 1:30 PM EDT Medication Management [facility] MEDICINE [address] [place] [address] Kraig Martines, PharmD [address] [place] [address] 08/08/2025 9:15 AM EDT Office Visit [facility] MEDICINE [address] [place] [address] Krysta Lockett FNP [address] [place] [address] documented as of this encounter Visit Diagnoses Diagnosis Dyspepsia Dyspepsia and other specified disorders of function of stomach documented in this encounter Additional Health Concerns Assessment Noted Time PHQ-9 Depression Total Score: 0 12/21/19 23 10:22 AM EST documented as of this encounter Care Teams Assistant Field Hockey Coach Relationship Specialty Start Date End Date Krysta Lockett FNP [address] [place] [address] PCP - General Family Medicine 10/27/22 documented as of this encounter
--- OUTSIDE RECORDS SUMMARY | 2025-08-01 17:56 | XMS_ITS | Clinical Summary ---
Author Organization [employer] [facility] ity Address [address] [place] [address] Care Team Providers Care Transmission Technician Name Role Phone Unavailable Primary Care [...]
--- OUTSIDE RECORDS SUMMARY | 2025-08-01 17:56 | XMS_ITS | Encounter Summary ---
Author Organization [employer] Address [address] [facility] 7t [place] [address] Care Team Providers Care Sed Middle School Teacher Name Role Phone [facility] Primary Care Provider [phone] Reason for Visit * Reason Comments Pre-visit Planning SDOH screening compl eted on 02/28/2025 Encounter Details Date Type Department Care Team ([facility] st Contact Info) Description 07/31/2025 Patient Outreach [facility] [address] [place], [place] [phone] [facility] [address] [place] [address] Pre-visit Planning (SDOH screening completed on 02/28/2025) Social History Tobacco Use Types Packs/Day Years [...] AM EDT documented as of this encounter Progress Notes * Kalyn Vegas - 07/31/2025 12:27 PM EDT OLYA Mccain. Placed outbound call to patient to complete pre-visit planning. No answer at this time. Patient name and were not confirmed. CC left voicemail requesting return call. Direct contact information provided. documented in this encounter Plan of Treatment Upcoming Encounters Date Type Department Care Team ([facility] st Contact Info) Description 08/07/2025 1:30 PM EDT Medication Management [facility] [address] [place] [address] Kraig Martines, PharmD [address] [place] [address] 08/08/2025 9:15 AM EDT Office Visit [facility] [address] [place] [address] Krysta Lockett FNP [address] [place] [address] documented as of this encounter Visit Diagnoses Not on filedocumented in this encounter Additional Health Concerns Assessment Noted Time PHQ-9 Depression Total Score: 6 02/29/20 25 11:37 AM EDT documented as of this encounter Care Teams Sed Middle School Teacher Relationship Specialty Start Date End Date Krysta Lockett FNP [address] [place] [address] PCP - General Family Medicine 10/27/22 documented as of this encounter
--- OUTSIDE RECORDS SUMMARY | 2025-08-01 17:56 | XMS_ITS | Encounter Summary ---
Author Organization [employer] Address [address] [facility] 7t [place] [address] Care Team Providers Care Brine Maker Name Role Phone Krysta Lockett HAT BLOCKER Primary Care Provider [phone] Reason for Visit * Reason Comments Med Refill Encounter Details Date Type Department Care Team (Late Contact Info) Description 11/24/2022 Refill [facility] MEDICINE [address] [place], [place] [phone] Chey Multani MD [address] [place] [address] Social History Tobacco Use Types Packs/Day Years [...] rx for persistent orthostatic hypotension. T/C to [facility] pharmacy. Zeinab states that pt has been getting med boxes regularly and is due for med box delivery tomorrow. documented in this encounter Plan of Treatment Upcoming Encounters Date Type Department Care Team (Late Contact Info) Description 08/07/2025 1:30 PM EDT Medication Management [facility] MEDICINE [address] [place] [address] Kraig Martines, PharmD [address] [place] [address] 08/08/2025 9:15 AM EDT Office Visit [address] [address] Krysta Lockett FNP [address] [place] [address] documented as of this encounter Visit Diagnoses Not on filedocumented in this encounter Care Teams Brine Maker Relationship Specialty Start Date End Date Krysta Lockett FNP [address] [place] [address] PCP - General Family Medicine 10/27/22 documented as of this encounter
--- OUTSIDE RECORDS SUMMARY | 2025-08-01 17:56 | XMS_ITS | Clinical Summary ---
Author Organization [facility] [employer] [facility] Facility Address [address] [address] Care Team Providers Care Senior Sharepoint Architect Name Role Phone Unavailable Primary Care Provider [...] % PVNMA 08/21/2020 us [facility] [id number] LICITED RESULTS Final Result PVNMA from Last 3 Months or Most Recently Relevant to Health Maintenance Insurance Medicaid [place] Medicare Medicaid [place] Medicare
--- OUTSIDE RECORDS SUMMARY | 2025-08-01 17:57 | XMS_ITS | Encounter Summary ---
Author Organization [employer] Address [address] [facility] 7t [place] [address] Care Team Providers Care X Ray Nurse Name Role Phone [facility] Primary Care Provider [phone] Encounter Details Date Type Department Care Team (Late st Contact Info) Description 07/19/2024 Orders Only [facility] [address] [place], [place] [phone] [facility] [address] [place] [address] Social History Tobacco Use Types Packs/Day Years [...] 1:30 PM EDT Medication Management [facility] MEDICINE [address] [place] [address] Kraig Martines, PharmD [address] [place] [address] 08/08/2025 9:15 AM EDT Office Visit [facility] MEDICINE [address] [place] [address] Krysta Lockett FNP [address] [place] [address] documented as of this encounter Visit Diagnoses Not on filedocumented in this encounter Additional Health Concerns Assessment Noted Time PHQ-9 Depression Total Score: 0 12/08/19 24 10:42 AM EST documented as of this encounter Care Teams X Ray Nurse Relationship Specialty Start Date End Date Krysta Lockett FNP [address] [place] [address] PCP - General Family Medicine 10/27/22 documented as of this encounter
--- OUTSIDE RECORDS SUMMARY | 2025-08-01 17:57 | XMS_ITS | Encounter Summary ---
Author Organization [employer] Address [address] [facility] 7t [place] [address] Care Team Providers Care Storage Consultant Name Role Phone Krysta Lockett DELIVERY CREW MEMBER Primary Care Provider Encounter Details Date Type Department Care Team (Late st Contact Info) Description 02/16/2024 Orders Only [facility] MEDICINE [address] [place], [place] [phone] Provider, MD Larissa Social History Tobacco Use [...] Description 08/07/2025 1:30 PM EDT Medication Management [facility] MEDICINE [address] [place] [address] rKaig Martines, PharmD [address] [place] [address] 08/08/2025 9:15 AM EDT Office Visit [facility] MEDICINE [address] [place], [place] [phone] KellyKrysta, DELIVERY CREW MEMBER [address] [place] [address] documented as of this encounter Procedures Procedure Name Priority Date/Time Associated Diagnosis Comments US RENAL BI Routine 03/08/2024 12:37 PM EDT COLONOSCOPY Routine 07/18/2019 7:44 AM EDT documented in this encounter Results * US RENAL BI (03/08/2024 12:37 PM EDT) Anatomical Region Laterality Modality Abdomen Ultrasound 03/08/2024 12:3 7 PM EDT Narrative 03/10/2024 10:07 AM EDT [address] [address] Ultrasound Report Signed Patient: Armando Ba MR#: [id number] : 1955 Acct:[id number] Age/Sex: 68 / M ADM Date: 03/08/24 Loc: HO.US Attending Dr: Bladimir Le MD Ordering Physician: Bladimir Le MD Date of Service: 03/08/24 Procedure(s): US renal BI Accession Number(s): [id number] cc: Bladimir Le MD; [facility] EXAMINATION: US RETROPERITONEAL LIMITED (RENAL ONLY) CLINICAL [...] in OV> 03/10/24 1004 DD/ 1237 TD/TT: Database Modeler: ELAINE Procedure Note Donotuseinterpreter, Image - 03/10/2024 [place] [address] Ultrasound Report Signed Patient: Armando BaMR#: [id number] : 6Acct:[id number] Age/Sex: 68 / MADM Date: 03/08/24 Loc: HO.US Attending Dr: Bladimir Le MD Ordering Physician: Bladimir Le MD Date of Service: 03/08/24 Procedure(s): US renal BI Accession Number(s): [id number] cc: Bladimir Le MD; [facility] EXAMINATION: US RETROPERITONEAL LIMITED (RENAL ONLY) CLINICAL [...] in OV> 03/10/24 1004 DD/ 1237 TD/TT: Database Modeler: ELAINE [facility] External Provider IMG US PROCEDURES Final Result * Hm Colonoscopy (07/18/2019 7:44 AM EDT) Historical Provider HEALTH MAINTENANCE Final Result documented in this encounter Visit Diagnoses Not on filedocumented in this encounter Additional Health Concerns Assessment Noted Time PHQ-9 Depression Total Score: 0 12/08/19 24 10:42 AM EST documented as of this encounter Care Teams Storage Consultant Relationship Specialty Start Date End Date Krysta Lockett FNP [address] [place] [address] PCP - General Family Medicine 10/27/22 documented as of this encounter
[2025-08-01 18:14] LABS: Alanine Aminotransferase 69 U/L (0-40); Albumin Level 3.3 g/dL (3.5-5.0); Alkaline Phosphatase 104 U/L (39-117); Anion Gap 9 (12-20); Aspartate Amino Transferase 51 U/L (5-37); Blood Urea Nitrogen 16 mg/dL (9-16); Calcium 8.8 mg/dL (8.4-10.2); Carbon Dioxide 32 mmol/L (22-29); Chloride 107 mmol/L (96-108); Creatinine Clr Calc Pharmacy 64.2; Estimated Glomerular Filt Rate 59; Potassium 4.5 mmol/L (3.3-5.1); Sodium 143 mmol/L (135-145); Total Protein 5.7 g/dL (6.5-8.0)
[2025-08-01 18:21] LABS: NT Pro B Type Natriuretic Pept 196.9 pg/mL (<300)
[2025-08-01 20:00] VITALS: BP 148/72; PULSE 69; RESP 18; TEMP 36.6; O2SAT 99
[2025-08-01 20:11] VITALS: BP 148/72; PULSE 69; RESP 18; TEMP 36.6; O2SAT 99
== END 2025-08-01 19:54 | disposition home or self-care (01) ==
PROVIDERS: Physician Assistant; Emergency Provider Student in an Organized Health Care Education/Training Program
DX: R51.9 Headache, unspecified (principal); M54.50 Low back pain, unspecified; M79.10 Myalgia, unspecified site; R06.02 Shortness of breath; R94.31 Abnormal electrocardiogram [ECG] [EKG]; Z87.891 Personal history of nicotine dependence; Z79.899 Other long term (current) drug therapy
CPT/HCPCS: 36415; 71046; 80053; 82550; 83880; 85025; 93005; 99283; 99285

== ENCOUNTER → 2025-08-01 15:47 | Outpatient (BNV) | payer OTHER, SELFPAY | PROVIDERS: Visit Provider Radiology Diagnostic Radiology | DX: R05.9 Cough, unspecified (principal); M51.34 Other intervertebral disc degeneration, thoracic region | CPT/HCPCS: 71046 ==

== ENCOUNTER → 2025-08-01 17:20 | Outpatient (BNV) | payer OTHER, SELFPAY | PROVIDERS: Emergency Provider Student in an Organized Health Care Education/Training Program; Visit Provider Internal Medicine Cardiovascular Disease | DX: R94.31 Abnormal electrocardiogram [ECG] [EKG] (principal); R51.9 Headache, unspecified | CPT/HCPCS: 93010 ==

== ENCOUNTER 2025-08-10 09:58 | Emergency (ER) | payer OTHER, SELFPAY ==
--- NOTE | ~2025-08-10 | CT_ITS ---
EXAMINATION: CT ANGIOGRAM HEAD AND NECK CLINICAL INFORMATION: Acute vision loss and gait instability. 70-year-old male. COMPARISON: No prior available. Correlation made with CT head 07/09/2023, and MRI brain 08/23/2024. TECHNIQUE: Noncontrast axial imaging of the head was performed. This was followed by test bolus sequences and head and neck intravenous bolus administration 70 mL of Omnipaque 350. Helical imaging was performed in the axial plane from the aortic arch to the skull vertex. The data was processed at the chemical engineering technologist's workstation for generation of MIP sequences. Angled MIPs and volume rendered reformatted images were also generated at an offline 3D workstation. Stenoses are assessed in accordance with NASCET criteria unless otherwise indicated. This CT examination was performed using dose optimization techniques as appropriate, variously including the following: *Automated exposure control *Adjustment of mA and/or kV according to patient size (this includes techniques or standardized protocols for targeted exams where dose is matched to indication/reason for exam; i.e. extremities or head) *Use of iterative reconstruction technique FINDINGS: NONCONTRAST HEAD CT: There is no evidence of intracranial hemorrhage or extra-axial fluid collection. There is no mass effect, or edema. No CT evidence of acute territorial infarct. Ventricles, sulci, and cisterns are normal in size and configuration for patient age. No hydrocephalus. No midline shift. Mild supratentorial white matter hypoattenuation in keeping with small vessel ischemic changes. Globes and orbital contents image normally. There are bilateral lens replacements. No extracranial soft tissue abnormalities. The paranasal sinuses, mastoid air cells, and tympanic cavities are normally aerated. No suspicious bony abnormalities. NECK CTA: -AORTIC ARCH: Normal in caliber. Mild atheromatous calcification. Three-vessel branching pattern. -GREAT VESSEL ORIGINS: Widely patent. No stenosis. -RIGHT COMMON CAROTID ARTERY: Normal in course and caliber to the level of the bifurcation. -CERVICAL RIGHT INTERNAL CAROTID ARTERY: Normal opacification without focal stenosis or occlusion. -LEFT COMMON CAROTID ARTERY: Normal in course and caliber to the level of the bifurcation. -CERVICAL LEFT INTERNAL CAROTID ARTERY: Mild calcific atherosclerotic disease of the carotid bulb and proximal internal carotid artery without flow-limiting stenosis. -CERVICAL RIGHT VERTEBRAL ARTERY: Codominant. Normal in course and caliber into the skull base. -CERVICAL LEFT VERTEBRAL ARTERY: Normal in course and caliber into the skull base. OTHER, SOFT TISSUES: -No lymphadenopathy or mass. No abnormal fluid collection or soft tissue swelling. -Normal thyroid. -Imaged superior mediastinal structures normal. -Imaged lung apices appear clear. CTA OF THE BRAIN: -INTRACRANIAL INTERNAL CAROTID ARTERIES: Calcific atherosclerotic disease of the intracranial internal carotid arteries without occlusion or flow-limiting stenosis. -Ophthalmic artery origins are normal. -RIGHT ANTERIOR CEREBRAL ARTERY: Normal A1 segment.. Normal arborization of the distal segments. -LEFT ANTERIOR CEREBRAL ARTERY: Normal A1 segment.. Normal arborization of the distal segments. -ANTERIOR COMMUNICATING ARTERY: Normal. -RIGHT MIDDLE CEREBRAL ARTERY: Normal M1 segment of the MCA without focal stenosis or occlusion. Normal bifurcation. Normal arborization of the distal segments. -LEFT MIDDLE CEREBRAL ARTERY: Normal M1 segment of the MCA without focal stenosis or occlusion. Normal bifurcation. Normal arborization of the distal segments. -RIGHT VERTEBRAL ARTERY V4: Normal in course and caliber. Normal PICA branch. -LEFT VERTEBRAL ARTERY V4: Normal in course and caliber. Normal PICA branch. -BASILAR ARTERY: Normal without focal stenosis or occlusion. Normal appearance of the proximal superior cerebellar arteries. Normal basilar tip. -RIGHT POSTERIOR CEREBRAL ARTERY: The P1 segment is diminutive. origin of the BILLING ASSISTANT with robust opacification of the posterior communicating artery. Normal opacification of the distal BILLING ASSISTANT segments. -LEFT POSTERIOR CEREBRAL ARTERY: The P1 segment is diminutive. origin of the BILLING ASSISTANT with robust opacification of the posterior communicating artery. Normal opacification of the distal BILLING ASSISTANT segments. -POSTERIOR COMMUNICATING ARTERIES: As above. Normal opacification of the superior sagittal, straight, transverse, and sigmoid sinuses. No venous thrombosis. CT/CT angio head neck IMPRESSION: NON-CONTRAST HEAD CT: 1. No intracranial hemorrhage or mass effect. No CT evidence of acute territorial infarct. CTA NECK: 1. No evidence of significant stenosis, occlusion, dissection, or aneurysm of the major cervical arterial vasculature. CTA HEAD: 1. No evidence of significant stenosis, occlusion, dissection, or aneurysm of the major intracranial arterial vasculature. 2. Major cortical and dural venous sinuses are patent. Electronically signed by: Jasiel Echevarria MD 08/10/2025 12:54 PM EDT
[2025-08-10 10:16] VITALS: BP 159/74; PULSE 90; RESP 16; TEMP 36.7; O2SAT 96; BMI 20.1
--- NOTE | 2025-08-10 10:18 | ED.GENADULT ---
HPI - General Adult General Chief complaint: General Medical Stated complaint: Dizzy Lightheaded Time Seen by Provider: 08/10/25 10:37 History of Present Illness ED Provider: Andre STRAUSS narrative: The patient is a 70-year-old male who was brought to the emergency room from a day program for elderly people. Apparently while at the program the patient developed visual symptoms and a headache at around heat 45 this morning. He says that at 1st it sufficient seemed to go out completely for about 5 seconds but then seemed to be restored and he has a sense of fuzzy vision in his left visual field at this point. He is also complaining of a headache. He says that he has a history of headaches but not necessarily this exact headache syndrome. Related Data Home Medications ?Medication ?Instructions ?Recorded ?Confirmed atorvastatin 20 mg tablet 20 mg PO BEDTIME 11/04/20 07/02/25 ascorbic acid (vitamin C) 250 mg 250 mg PO QAM 04/23/21 07/02/25 tablet pen needle, diabetic 32 gauge x #50 ea 04/23/21 07/02/25 tiotropium bromide 18 mcg capsule 1 cap inhalation DAILY 04/23/21 07/02/25 with inhalation device celebrate MVI PO DAILY 04/20/22 07/02/25 omeprazole 20 mg capsule,delayed 20 mg PO DAILY 07/28/22 07/02/25 release nebulizers 03/09/23 07/02/25 apixaban 5 mg tablet (Eliquis) 5 mg PO BID 05/02/24 07/02/25 Held on 06/19/25. Instructions: Until discussed with Dr. Solares midodrine 2.5 mg tablet 2.5 mg PO 05/02/24 07/02/25 trazodone 100 mg tablet 100 mg PO BEDTIME 05/02/24 07/02/25 folic acid 1 mg tablet 1 mg PO QAM 05/19/24 07/02/25 dulaglutide 0.75 mg/0.5 mL mg subcut .QMONDAY 06/18/25 07/02/25 subcutaneous pen injector (Trulicity) Previous Rx's ?Medication ?Instructions ?Recorded ipratropium 0.5 mg-albuterol 3 mg 3 ml inhalation Q6H PRN shortness 09/12/20 (2.5 mg base)/3 mL nebulization of breath or wheezing #15 mL soln acetaminophen 500 mg tablet 1,000 mg (2 x 500 mg) PO Q6H PRN 06/16/21 (Tylenol Extra Strength) pain #30 tabs albuterol sulfate 90 mcg/actuation 2 inh inhalation Q6H PRN shortness 03/09/23 aerosol inhaler of breath or wheezing 30 days #18 grams simethicone 80 mg chewable tablet 80 mg PO BID-QID PRN abdominal 01/13/24 (Gas Relief (simethicone)) distention #90 tabs cholecalciferol (vitamin D3) 50 50 mcg PO DAILY #90 caps 08/07/24 mcg (2,000 unit) capsule fluticasone fur. 100 mcg-umeclid 1 inh inhalation DAILY 30 days #60 08/07/24 62.5 mcg-vilant 25 mcg ea inhalat.powder (Trelegy Ellipta) vitamin A palmitate 3,000 mcg 10,000 unit PO DAILY #90 caps 10/23/24 (10,000 unit) capsule zinc gluconate 30 mg tablet 30 mg PO DAILY #90 tabs 10/23/24 fondaparinux 2.5 mg/0.5 mL 2.5 mg (0.5 mL) subcut Q24H #5 mL 06/13/25 subcutaneous solution syringe Held on 06/19/25. Instructions: Until discussed with Dr. Solares ipratropium 0.5 mg-albuterol 3 mg 3 ml inhalation BID #1,620 mL 06/13/25 (2.5 mg base)/3 mL nebulization soln ondansetron 4 mg disintegrating 4 mg PO Q12H nausea and vomiting 06/13/25 tablet #20 tabs azithromycin 250 mg tablet See Rx Instructions PO .COMPLEX #6 07/24/25 (Zithromax) tabs benzonatate 200 mg capsule 200 mg PO TID PRN cough #20 caps 07/24/25 prednisone 20 mg tablet 40 mg (2 x 20 mg) PO DAILY 5 days 07/24/25 #10 tabs Allergies Allergy/AdvReac Type Severity Reaction Status Date / Time aspirin (Aspirin) Allergy Mild SWELLING Verified 08/10/25 10:18 Penicillins Allergy Mild SWELLING Verified 08/10/25 10:18 NSAIDS (Non-Steroidal Allergy Unknown Verified 08/10/25 10:18 Anti-Inflamma Review of Systems Review of Systems: Yes all other systems are reviewed and are negative [facility] Past Medical History Medical History Anticoagulation overlap therapy not prescribed at discharge Chronic restrictive lung disease Pulmonary nodules COVID-19 vaccine series completed Arthritis Asthma Vitamin D deficiency HLD (hyperlipidemia) T2DM (type 2 diabetes mellitus) Anxiety Depression Venous insufficiency Hypertension COPD (chronic obstructive pulmonary disease) Surgical History History of repair of hiatal hernia Status post laparoscopic sleeve gastrectomy (06/2021) History of esophagogastroduodenoscopy (EGD) History of umbilical hernia repair H/O colonoscopy with polypectomy Family History Family History Father CVD (cardiovascular disease) Heart disease Mother Heart disease CVD (cardiovascular disease) Brother Cancer Brother Cancer Brother Heart attack Sister CVD (cardiovascular disease) Diabetes mellitus Hypertension Arthritis Social History Social History Household Members Other:: daughter Are you a primary acute care nurse to a significant other at home: No Do you presently have visiting nurse or other home services: Yes (RELIEF SALESPERSON-daughter) Alcohol intake: current Alcohol intake frequency: holidays/special occasions only Comment: no facial grimacing, medicated in pacu numerous times, pain scale explained Patient Tobacco Use Status: Former Tobacco user Tobacco use type: Cigarette Smoked in Last 30 Days: No Use of substances other than those prescribed or required for medical reasons: No Advance Directives: Yes Advance Directives on File: Yes Advance Directives Date on File: 07/23/25 service: No Current occupational status: unemployed Physical Exam ED Vital Signs: Vital Signs - 24 hr 08/10/25 10:16 08/10/25 10:48 08/10/25 13:13 Temperature 98.1 F 98.2 F Pulse Rate 90 79 74 Respiratory Rate 16 16 18 Blood Pressure 159/74 H 150/76 H 151/85 H Pulse Oximetry 96 99 98 Oxygen Delivery Method Room Air Room Air Room Air BMI result Body Mass Index 20.1 Const Other: The patient is a chronically ill-appearing 70-year-old male who was awake and alert. He does not appear in obvious acute distress and he does not seem toxic. HENMT Other: The face is symmetrical. ?Mucous membranes moist. Eyes Other: Pupils are round, equal, and reactive to light, extraocular movements are intact, lateral gaze is normal bilaterally. Visual doherty are intact to confrontation. Neck Neck: Yes normal visual inspection, Yes full ROM, Yes no meningeal signs and Yes no JVD Resp Effort & Inspection: normal respiratory effort Auscultation: clear to auscultation bilaterally Cardio Rate: regular rate Rhythm: regular rhythm Heart sounds: S1 normal heart sound present and S2 normal heart sound present GI Other: Abdomen is soft and nontender Skin Other: The skin is dry and unremarkable Neuro Other: The patient is awake and alert. He has an unusual demeanor but I think this is likely his baseline. He does not seem confused or disoriented. Pupils are round equal and reactive, extraocular movements are intact, lateral gaze is intact bilaterally, his visual doherty are intact to confrontation. Face is symmetrical. Speech is clear and appropriate. Strength is 5/5 in all extremities. No pronator drift. Finger-nose is intact. Sensation seems intact. His gait seems reasonably steady. Overall I do not find any focal neurological deficit. His NIH stroke scale is 0. General: no meningeal signs Extrem Other: No peripheral edema. No calf asymmetry or tenderness. Course Course Course Narrative: This is a rapid medical exam performed by Carol Wagner NP: Additional HPI, ROS, PE not included below will be deferred to primary provider. Patient is a 70-year-old Jordanian speaking male pmhx CKD stage 3, DVT on Eliquis, T2DM, HTN, COPD presenting to the ED with complaint of sudden onset vision loss to both eyes lasting 5-6 seconds, associated dizziness. Now reports seeing little things in left eye. Complains of all over headache. Plan: Dr. Powell to triage who also evaluated patient, NIH score of 0, does not feel patient needs to be activated as acute stroke Medications Administered Discontinued Medications Generic Name Dose Route Start Last Admin Trade Name Freq PRN Reason Stop Dose Admin Diphenhydramine HCl 12.5 mg 08/10/25 14:06 08/10/25 15:00 Diphenhydramine Hcl 50 Mg/Ml Vial IVPUSH 08/10/25 14:07 12.5 mg ONCE ONE Administration Acetaminophen 1,000 mg in 100 mls @ 400 mls/hr 08/10/25 14:06 08/10/25 14:59 Ofirmev IV 08/10/25 14:20 400 mls/hr ONCE ONE Administration Sodium Chloride 1,000 mls @ 999 mls/hr 08/10/25 14:15 08/10/25 14:59 Ns IV 08/10/25 15:15 999 mls/hr .Q1H1M ROSS Administration Iohexol 100 ml 08/10/25 12:31 08/10/25 12:32 Iohexol 350 Mg/Ml 100 Ml Infus..Btl IV 08/10/25 12:32 70 ml ONCE ONE Administration Metoclopramide HCl 10 mg 08/10/25 14:06 08/10/25 15:00 Metoclopramide Hcl 10 Mg/2 Ml Vial IVPUSH 08/10/25 14:07 10 mg ONCE ONE Administration Medical Decision Making Medical Decision Making MDM Narrative: The patient is a 70-year-old male who presented to triage with visual complaints. He was seen initially by the nurse practitioner in triage who asked me to see the patient case this might be a stroke. The patient has a history of a DVT and is on apixaban. Clinically I did not find any definite neurological deficit. Given his description of the symptoms however we obtained a CT angiogram of the head and neck. There are no acute findings. When I went to see the patient later he was complaining of a headache that he described as a 10/10 (he did not appear obviously uncomfortable). He continued to complain of some blurry vision. He was then given IV acetaminophen, IV metoclopramide, IV diphenhydramine, and IV fluids. He then felt considerably better after administration of these medications. I suspect that he is probably having some kind of a migraine syndrome. I think he may be discharged to follow up with his regular doctor. Lab Data 08/10/25 11:24 08/10/25 11:24 Labs: Lab Results 08/10/25 08/10/25 08/10/25 Range/Units 11:24 11:24 15:03 WBC 4.1 L (4.8-10.8) X10*3/uL RBC 3.69 L (4.60-5.80) X10*6/uL Hgb 11.5 L (14.0-18.0) g/dl Hct 35.0 L (42.0-52.0) % MCV 94.9 (80.0-98.0) fL MCH 31.2 (27.0-33.0) pg MCHC 32.9 (31.0-36.0) g/dl RDW 12.0 (11.0-16.0) % Plt Count 205 (160-400) X10*3/uL MPV 9.6 (9.4-12.4) fL Immature Gran % (Auto) 0.2 (0.0-0.4) % Neut % (Auto) 67.5 (45-73) % Lymph % (Auto) 22.9 (20-40) % [place] % (Auto) 6.8 (2-11) % Eos % (Auto) 1.9 (0-4) % Baso % (Auto) 0.7 (0-2) % Lymph # (Auto) 0.9 L (1.2-4.9) X10*3/uL [place] # (Auto) 0.3 (0.1-1.2) X10*3/uL Eos # (Auto) 0.1 (0.0-0.4) X10*3/uL Baso # (Auto) 0.0 (0.0-0.2) X10*3/uL Abs Immat Gran (auto) 0.01 (0.00-0.03) X10*3/uL Absolute Neuts (auto) 2.8 (2.0-8.3) x10*3/uL Absolute Nucleated RBC 0.000 (0.0-0.012) X10*3/uL Nucleated RBC % (auto) 0.0 (0.0-0.2) /100WBC PT 14.2 H (10.9-12.4) SEC INR 1.2 H (0.9-1.1) Sodium 140 (135-145) mmol/L Potassium 4.7 (3.3-5.1) mmol/L Chloride 108 (96-108) mmol/L Carbon Dioxide 27 (22-29) mmol/L Anion Gap 10 L (12-20) BUN 13 (9-16) mg/dL Creatinine 1.23 (0.5-1.4) mg/dL Estim Creat Clear Calc 50.9 Estimated GFR 58 Random Glucose 103 (60-115) mg/dL Calcium 8.8 (8.4-10.2) mg/dL Magnesium 2.0 (1.6-2.6) mg/dL Total Bilirubin 0.7 (0.0-1.0) mg/dL AST 47 H (5-37) U/L ALT 45 H (0-40) U/L Alkaline Phosphatase 110 (39-117) U/L Troponin I High Sens < 2.7 (<3.5-35.0) ng/L NT-Pro-B Natriuret Pep 287.9 (<300) pg/mL Total Protein 6.2 L (6.5-8.0) g/dL Albumin 3.7 (3.5-5.0) g/dL Urine Color Yellow Urine Appearance Clear Urine pH 7.0 (5.0-9.0) Ur Specific [place] >= 1.030 H (1.005-1.025) Urine Protein Negative (Neg-Trace) mg/dL Urine Glucose (UA) Negative (Negative) mg/dL Urine Ketones Negative (Negative) mg/dL Urine Blood Negative (Negative) Urine Nitrite Negative (Negative) Ur Leukocyte Esterase Negative (Negative) Urine RBC 0-2 (0-2) /HPF Urine WBC 0-5 (0-5) /HPF Ur Squamous Epith Cells 0-2 (0-2) /HPF Urine Bacteria None Seen (None Seen) Hyaline Casts 0-2 (0-2) /LPF Ethyl Alcohol 13 Cancelled mg/dL Discharge Plan Discharge Clinical Impression: Migraine headache Patient Disposition: Home, Self-Care Additional Instructions: I suspect that the symptoms you experienced today were the symptoms of a migraine headache. You seemed to have improved with treatment for a migraine headache. Your testing was otherwise reassuring. Please rest and take it easy tonight. Continue your regular medications. Please follow up with your regular doctor soon to discuss this episode further. Please call your doctor's office on Wednesday to set up a prompt follow up appointment. Return to the emergency room if you feel significantly worse. Prescriptions: No Action Trelegy Ellipta 100-62.5-25 mcg blister with device 1 inh inhalation DAILY 30 Days Qty: 60 11RF cholecalciferol (vitamin D3) 50 mcg (2,000 unit) capsule 50 mcg PO DAILY Qty: 90 3RF vitamin A palmitate 3,000 mcg (10,000 unit) capsule 10,000 unit PO DAILY Qty: 90 3RF zinc gluconate 30 mg tablet 30 mg PO DAILY Qty: 90 3RF ipratropium-albuterol 0.5 mg-3 mg(2.5 mg base)/3 mL solution for nebulization 3 ml inhalation BID Qty: 1620 0RF ipratropium-albuterol 0.5 mg-3 mg(2.5 mg base)/3 mL solution for nebulization 3 ml inhalation Q6H PRN (Reason: shortness of breath or wheezing) Qty: 15 0RF Trulicity 0.75 mg/0.5 mL pen injector subcut .QMONDAY benzonatate 200 mg capsule 200 mg PO TID PRN (Reason: cough) Qty: 20 0RF azithromycin [Zithromax] 250 mg tablet See Rx Instructions .ROUTE .COMPLEX Qty: 6 0RF Rx Instructions: For 250 mg dose pack: take 500 mg today (day 1), then 250 mg for 4 days (days 2-5) prednisone 20 mg tablet 40 mg PO DAILY 5 Days Qty: 10 0RF atorvastatin 20 mg tablet 20 mg PO BEDTIME acetaminophen [Tylenol Extra Strength] 500 mg tablet 1,000 mg PO Q6H PRN (Reason: pain) Qty: 30 1RF tiotropium bromide 18 mcg capsule, w/inhalation device 1 cap inhalation DAILY ascorbic acid (vitamin C) 250 mg tablet 250 mg PO QAM (DME) pen needle, diabetic 32 gauge x 5/32 needle See Rx Instructions .ROUTE .MEDSUPPLY Qty: 50 Rx Instructions: As directed celebrate MVI PO DAILY (DME) nebulizers [facility] [place] Instructions .Route Rx Instructions: As directed albuterol sulfate 90 mcg/actuation HFA aerosol inhaler 2 inh inhalation Q6H PRN (Reason: shortness of breath or wheezing) 30 Days Qty: 18 12RF omeprazole 20 mg capsule,delayed release(DR/EC) 20 mg PO DAILY simethicone [Gas Relief (simethicone)] 80 mg tablet,chewable 80 mg PO BID-QID PRN (Reason: abdominal distention) Qty: 90 3RF folic acid 1 mg tablet 1 mg PO QAM Eliquis 5 mg tablet 5 mg PO BID trazodone 100 mg tablet 100 mg PO BEDTIME midodrine 2.5 mg tablet 2.5 mg PO fondaparinux 2.5 mg/0.5 mL syringe 2.5 mg subcut Q24H Qty: 5 0RF ondansetron 4 mg tablet,disintegrating 4 mg PO Q12H Qty: 20 0RF Referrals: [facility] [Provider Group] Print Language: Japanese
--- NOTE | 2025-08-10 10:38 | ECG_ITS ---
Test Reason : SYNCOPE Blood Pressure : */* mmHG Vent. Rate : 68 BPM Atrial Rate : 68 BPM P-R Int : 158 ms QRS Dur : 80 ms QT Int : 404 ms P-R-T Axes : 60 58 49 degrees QTcB Int : 429 ms Normal sinus rhythm Normal ECG When compared with ECG of 01-Aug-2025 17:34, No significant change was found Referred By: Greyson Powell Electronically Signed By: SOFIA SIMMONS
[2025-08-10 10:48] VITALS: BP 150/76; PULSE 79; RESP 16; O2SAT 99
[2025-08-10 11:35] LABS: MANUAL DIFF FLAG NO
[2025-08-10 11:37] LABS: Hematocrit 35.0 % (42.0-52.0); Hemoglobin 11.5 g/dl (14.0-18.0); Imm Gran Abs Auto 0.01 X10*3/uL (0.00-0.03); Imm Gran Pct Auto 0.2 % (0.0-0.4); Lymphocytes Absolute Auto 0.9 X10*3/uL (1.2-4.9); Mean Corpuscular HGB Conc 32.9 g/dl (31.0-36.0); Mean Corpuscular Hemoglobin 31.2 pg (27.0-33.0); Mean Corpuscular Volume 94.9 fL (80.0-98.0); NRBC Abs Auto 0.000 X10*3/uL (0.0-0.012); NRBC Pct Auto 0.0 /100WBC (0.0-0.2); Platelet Count 205 X10*3/uL (160-400); Red Blood Count 3.69 X10*6/uL (4.60-5.80); White Blood Count 4.1 X10*3/uL (4.8-10.8)
[2025-08-10 11:43] LABS: INTERNATIONAL NORM RATIO 1.2 (0.9-1.1); Prothrombin Time 14.2 SEC (10.9-12.4)
[2025-08-10 11:58] LABS: NT Pro B Type Natriuretic Pept 287.9 pg/mL (<300)
[2025-08-10 11:59] LABS: Troponin-I High Sensitivity < 2.7 ng/L (<3.5-35.0)
[2025-08-10 12:07] LABS: Alanine Aminotransferase 45 U/L (0-40); Albumin Level 3.7 g/dL (3.5-5.0); Alkaline Phosphatase 110 U/L (39-117); Anion Gap 10 (12-20); Aspartate Amino Transferase 47 U/L (5-37); Blood Urea Nitrogen 13 mg/dL (9-16); Calcium 8.8 mg/dL (8.4-10.2); Carbon Dioxide 27 mmol/L (22-29); Chloride 108 mmol/L (96-108); Creatinine Clr Calc Pharmacy 50.9; Estimated Glomerular Filt Rate 58; Magnesium 2.0 mg/dL (1.6-2.6); Potassium 4.7 mmol/L (3.3-5.1); Sodium 140 mmol/L (135-145); Total Protein 6.2 g/dL (6.5-8.0)
--- OUTSIDE RECORDS SUMMARY | 2025-08-10 12:28 | XMS_ITS | Clinical Summary ---
Author Organization [facility] ity Address [address] [place] [address] Care Team Providers Care Electrostatic Painter Name Role Phone Unavailable Primary Care Provider [...]
[2025-08-10] MEDS: iohexoL 350 MG/ML 100 ML INFUS..BTL IV (12:32)
[2025-08-10 13:13] VITALS: BP 151/85; PULSE 74; RESP 18; TEMP 36.8; O2SAT 98
[2025-08-10 15:10] LABS: Appearance Urine Clear; Glucose Urine UA Negative (Negative); PH 7.0 (5.0-9.0); Specific Gravity - Urine >= 1.030 (1.005-1.025)
[2025-08-10 16:55] VITALS: BP 151/85; PULSE 74; RESP 18; TEMP 36.8; O2SAT 98
== END 2025-08-10 17:36 | disposition home or self-care (01) ==
PROVIDERS: Emergency Provider Emergency Medicine
DX: G43.909 Migraine, unspecified, not intractable, without status migrainosus (principal); R42 Dizziness and giddiness; R55 Syncope and collapse; R06.02 Shortness of breath; Z79.899 Other long term (current) drug therapy; Z51.81 Encounter for therapeutic drug level monitoring
CPT/HCPCS: 36415; 70496; 70498; 80053; 80307; 81001; 83735; 83880; 84484; 85025; 85610; 93005; 96361; 96374; 96375; 99285; J0131; J1200; J2765; Q9967

== ENCOUNTER → 2025-08-10 10:37 | Outpatient (BNV) | payer OTHER, SELFPAY | PROVIDERS: Emergency Provider Emergency Medicine; Visit Provider Radiology Diagnostic Radiology | DX: H54.7 Unspecified visual loss (principal); R26.9 Unspecified abnormalities of gait and mobility | CPT/HCPCS: 70496; 70498 ==

== ENCOUNTER → 2025-08-10 10:38 | Outpatient (BNV) | payer OTHER, SELFPAY | PROVIDERS: Emergency Provider Emergency Medicine; Visit Provider Internal Medicine | DX: R55 Syncope and collapse (principal) | CPT/HCPCS: 93010 ==

== ENCOUNTER 2025-10-12 10:54 | Outpatient (AMB) | payer OTHER, SELFPAY ==
--- NOTE | 2025-10-12 11:00 | HO.NEPHOV_ITS ---
Vital Signs 10/12/25 11:02 Height 5 ft 10 in Weight 186 lb 6 oz BMI 26.7 BP 130/60 Blood Pressure Location Lt brachial Position Sitting Pulse 87 Pulse Source Pulse Oximeter Pulse Oximetry (%) 97 Oxygen Delivery Method Room Air Intake Visit Reasons: 4 MO FU-# Disconnected Local [employer] Required: Yes Local [employer] Driver Language: Clinical Account Manager Services: Local [employer] Driver Offered & Declined ([facility] [place] Local [employer]modal Truck Driver services refused ) Accompanied by: Daughter Allergies aspirin (Aspirin) Allergy (Mild, Verified 10/12/25 11:02) SWELLING Penicillins Allergy (Mild, Verified 10/12/25 11:02) SWELLING NSAIDS (Non-Steroidal Anti-Inflamma Allergy (Verified 10/12/25 11:02) Unknown HPI Comments Details: Armando was seen in follow up of his CKD. He has H/O hypertension and was on ACEI in the past but was taken off it when he developed low blood pressures. He is a diabetic on insulin. He had high BMI and underwent gastric surgery with significant weight loss.He has H/O very mild proteinuria. He has no H/O malignancies. He denies epistaxis, photosensitivity, new skin rashes, edema, hematuria, recurrent sore throat, new bone or back pain. He is not on any SGLT2 i. He tries to avoid NSAID's and maintain good hydration. His HbA1c has been very good. FOR[facility]LY [facility], [facility] Medical History Anticoagulation overlap therapy not prescribed at discharge Chronic restrictive lung disease Pulmonary nodules COVID-19 vaccine series completed Arthritis Asthma Vitamin D deficiency HLD (hyperlipidemia) T2DM (type 2 diabetes mellitus) Anxiety Depression Venous insufficiency Hypertension COPD (chronic obstructive pulmonary disease) Surgical History History of repair of hiatal hernia Status post laparoscopic sleeve gastrectomy (06/2021) History of esophagogastroduodenoscopy (EGD) History of umbilical hernia repair H/O colonoscopy with polypectomy Family History Father CVD (cardiovascular disease) Heart disease Mother Heart disease CVD (cardiovascular disease) Brother Cancer Brother Cancer Brother Heart attack Sister CVD (cardiovascular disease) Diabetes mellitus Hypertension Arthritis Social History Household Members Other:: daughter Are you a primary childcare center director to a significant other at home: No Do you presently have visiting nurse or other home services: Yes ([employer] WORK[employer]-daughter) Alcohol intake: current Alcohol intake frequency: holidays/special occasions only Comment: no facial grimacing, medicated in pacu numerous times, pain scale explained Patient Tobacco Use Status: Former Tobacco user Tobacco use type: Cigarette Advance Directives Date on File: 07/23/25 service: No Current occupational status: unemployed Review of Systems Const All systems reviewed & are unremarkable except as noted in HPI and below Physical Exam Const General: comfortable and no acute distress Orientation/consciousness: patient oriented x3 HEENT Head: Yes normocephalic Mouth: Normal oral and palatal mucosa present Eyes EOM: EOMs intact bilaterally Neck Neck: Yes supple Resp Auscultation: clear to auscultation bilaterally Cardio Jugular venous distension: no JVD Rate: regular rate GI Palpation (GI): Soft to palpation Auscultation: normal bowel sounds General: Yes no CVA tenderness Back/Spine/Pelvis Back: no CVA tenderness Skin General skin exam: no rashes or lesions noted Neuro General: patient oriented x3 and moves all extremities Extrem General: Yes no pedal edema Results Reviewed Nephrology Results: Hgb, (14.0-18.0) 11.5 g/dl L 08/10/25 WBC, (4.8-10.8) 4.1 X10*3/uL L 08/10/25 Plt Count, (160-400) 205 X10*3/uL 08/10/25 Sodium, (135-145) 140 mmol/L 08/10/25 Potassium, (3.3-5.1) 4.7 mmol/L 08/10/25 Chloride, (96-108) 108 mmol/L 08/10/25 Carbon Dioxide, (22-29) 27 mmol/L 08/10/25 BUN, (9-16) 13 mg/dL 08/10/25 Creatinine, (0.5-1.4) 1.23 mg/dL 08/10/25 Calcium, (8.4-10.2) 8.8 mg/dL 08/10/25 Urine Protein, (Neg-Trace) Negative mg/dL 08/10/25 Renal US 03/08/24 Assessment & Plan Assessment & Plan (1) Hypertension: Code(s): I10 - Essential (primary) hypertension Category: Medical Qualifiers: Hypertension type: unspecified Qualified Code(s): I10 - Essential (primary) hypertension (2) CKD (chronic kidney disease) stage 3, GFR 30-59 ml/min: Code(s): N18.30 - Chronic kidney disease, stage 3 unspecified Category: Medical Qualifiers: Chronic kidney disease stage 3 subtype: stage 3a (GFR 45-59) Qualified Code(s): N18.31 - Chronic kidney disease, stage 3a Plan Armando has CKD 3 and his renal functions have been close to baseline He had been on ACEI in the past which was discontinued due to low BP's Work up done in the past including imaging reviewed Will consider starting enalapril 1.25 mg with if his hemodynamics/renal fn permits NO indication for renal biopsy now. No NSAID's; Good hydration Minimize PPI if he can and keep Vitamin C to 3/ week Is a great candidate for Jardiance 10 mg daily Answered all questions;Follow labs ordered & F/U appointment given Coding Level of Care Code Est Pt Level 4 (73913) Diagnoses Hypertension, unspecified type I10 Hypertension type: unspecified Stage 3a chronic kidney disease N18.31 Chronic kidney disease stage 3 subtype: stage 3a (GFR 45-59)
[2025-10-12 11:02] VITALS: BP 130/60; PULSE 87; O2SAT 97; BMI 26.7
--- OUTSIDE RECORDS SUMMARY | 2025-10-12 13:25 | XMS_ITS | Clinical Summary ---
Author Organization [employer] Address [address] [facility] 7[address] [place] [address] Care Team Providers Care Assistant Store Manager Name Role Phone Krysta Lockett [facility] Primary Care Provider [phone] Allergies Active Allergy Reactions Criticality Noted Date Comments Aspirin Itching 11/13/2010 Other reaction(s): Itching Nsaids 07/10/2021 Other reaction(s): Other (see comments) Penicillins Itching 11/13/2010 Other reaction(s): Itching Medications * This document contains information received from the source organization and may not represent a complete record from that organization. fluticasone (Flonase) 50 MCG/ACT nasal sprayIndications :Seasonal allergies USE 2 SPRAYS IN EACH NOSTRIL EVERY DAY 48 g 1 11/29/19 24 Active glucose 4 g chewable tabletIndication s:Type 2 diabetes mellitus with hypoglycemia without coma, without long-term current use of insulin (HCC) Chew 4 tablets (16 g) if needed for low blood sugar. 50 tablet 12 06/28/20 24 Active omeprazole (PriLOSEC) [address] [...] BEDTIME 30 tablet 5 03/09/20 25 Active apixaban (Eliquis) 5 MG tabletIndication s:Acute deep vein thrombosis (DVT) of other vein of lower extremity, unspecified laterality (HCC) TAKE 1 TABLET BY MOUTH TWICE DAILY ONCE EVERY MORNING AND ONCE EVERY NIGHT AT BEDTIME 60 tablet 3 07/25/20 25 Active Trelegy Ellipta 100-62.5-25 MCG/ACT aerosol powder inhale 1 puff by mouth daily 07/12/20 25 Active ipratropium-albu terol (Duo-Neb) 0.5-2.5 mg/3 mL nebulizer solution USE 3 ML VIA NEBULIZER TWICE DAILY 05/09/20 20 Active sertraline (Zoloft) 100 MG tablet Take 150 mg by mouth Once per day. 08/06/20 25 Active zinc 30 MG tablet Take 1 tablet by mouth Once per day. Active ascorbic acid (Vitamin C) 250 MG chewable tabletIndication s:Seasonal allergies TAKE 1 TABLET BY MOUTH EVERY MORNING WITH IRON (CHEW) 90 tablet 1 08/13/20 25 Active ferrous sulfate (FeroSul) 325 (65 Fe) MG tabletIndication s:Anemia of chronic disease Take 1 tablet (325 mg) by mouth in the morning. 90 tablet 1 08/13/20 25 Active folic acid (Folvite) 1 MG tabletIndication s:Stage 3a chronic kidney disease (CMS/HCC) (HCC) Take 1 tablet (1,000 mcg) by mouth in the morning. 90 tablet 1 08/13/20 25 Active loratadine (Claritin) 10 MG tabletIndication s:Seasonal allergies Take 1 tablet (10 mg) by mouth Once per day. 90 tablet 1 08/13/20 25 Active beta carotene (vitamin A) 3 MG (00166 UT) capsule Take 10,000 Units by mouth Once per day. Active atorvastatin (Lipitor) 20 MG tablet Take 1 tablet (20 mg) by mouth Once per day. 30 tablet 11 5 10:56 AM EST 08/15/20 25 026 Active Trulicity 0.75 MG/0.5ML solution auto-injectorInd ications:Type 2 diabetes mellitus with hypoglycemia without coma, without long-term current use of insulin ([facility]) INJECT ONE PEN (=0.75MG) SUBCUTANEOUSLY ONCE A WEEK DIRECTED 2 mL 1 5 10:18 AM EST 08/28/20 25 Active Active Problems Problem Noted Date [...] no improvement -gave today to pt # [phone] of his vascular office to call and [...] Chronic obstructive lung disease 07/28/2017 Overview (12/21/2023): [facility] Yearly Ct scan for lung nodule Followed [...] NSR no ischemic findings -referred today to bilingual manager x complete eval of echocardiogram x orthopnea and given risk factors r/CAD -alarm signs and symptoms discussed w pt -pt to f w PCP in 4 weeks Memory impairment 07/28/2017 Overview (12/15/2022): Brain MRI 06/2022 unremarkable B12 and B1 WNL Followed by neurology Mood disorder 07/28/2017 Stage 3 chronic kidney disease (CMS/HCC) 017 Overview (12/23/2022): [facility] [...] Encounters Date Type Department Care Team Description 10/12/2025 Patient Outreach [facility] [address] [place] [address] Krysta Lockett FNP Pre-visit Planning ([facility] screening completed on 02/28/2025) 09/11/2025 Travel 08/28/2025 Refill [facility] [address] [place] [address] Krysta Lockett FNP Type 2 diabetes mellitus with hypoglycemia without coma, without long-term current use of insulin ([facility]) 08/27/2025 Travel 08/14/2025 Refill [facility] [address] [place] [address] [place] [facility] 08/09/2025 Abstract [facility] [address] [place] [address] [facility] 08/09/2025 Refill [facility] [address] [place] [address] [facility] Seasonal allergies; Anemia of chronic disease; Stage 3a chronic kidney disease ([facility]) (HCC) 08/07/2025 Travel 08/03/2025 Telephone [facility] [address] [place] [address] [facility] telephone call 07/31/2025 Patient Outreach [facility] [address] [place] [address] [place]Krysta [facility] Pre-visit Planning (SDOH screening completed on 02/28/2025) 07/30/2025 Orders Only [facility] [address] [place] [address] Argentina Huynh MD Type 2 diabetes mellitus ([facility]) (Primary Dx) 07/27/2025 1:00 PM EDT Office Visit [facility] [address] [place] [address] Kamila Emerson MD COVID-19 07/27/2025 Travel 07/25/2025 Refill [facility] [address] [place] [address] [place] [facility] Acute deep vein thrombosis (DVT) of other vein of lower extremity, unspecified laterality ([facility]) 07/23/2025 Orders Only GENERIC EXTERNAL DATA DEPARTMENT Provider, Generic External Data from Last 3 Months Immunizations Immunization Administration Dates Next Due Hep B, adult 11/19/2014,09/18/2014,03/15/2014 Influenza High-dose Quadriva lent Preservative Free 07/30/2022 Influenza injectable quadriv alent IIV4 with preservative 08/01/2018,07/28/2017,09/02/2015 Influenza injectable quadriv alent preservative free 12/08/2023,09/06/2019 Influenza, High Dose Seasona l, Preservative Free 09/11/2025 Influenza, IIV3, injectable 09/18/2014,0 07/07/2011,08/08/2010,07/29,07/29/2007,08/23/2006,11/21/2004 Influenza, Split (incl. patrick fied surface antigen) 07/26/2013 Influenza, trivalent, adjuvanted 07/15/2024 Pfizer Covid-19 Vaccine 12+ 09/11/2025, 3 Pneumococcal Conjugate PCV 13 04/24/2021 Pneumococcal Conjugate PCV 20 12/08/2023 Pneumococcal Polysaccharide PPSV23 09/22/2010, RSV Adjuvant 07/15/2024 TD (adult), 2 Lf tetanus tox oid, [...] Sign Reading Time Taken Comments Blood Pressure 138/60 09/11/2025 1:12 PM EST Pulse 78 09/11/2025 1:12 PM EST Temperature 36.5 C (97.7 F) 07/27/2025 12:58 [...] Care Team (Late st Contact Info) Description 10/22/2025 10:30 AM EST Office Visit [facility] [address] [place] [address] [place], Krysta, LITHOGRAPHIC PROOFER APPRENTICE [address] [place] [address] 01/03/2026 10:00 AM EST Office Visit [facility] OPT[facility] [address] [place] [address] Eduarda Perez, OD [address] [place] [address] Health Maintenance Due Date Last Done Comments CT Colonography 1956 FIT DNA/Cologuard 1956 FIT 1956 FOBT 1956 Sigmoidoscopy 1956 Diabetes: Foot Exam 1966 Eye Exam 1966 Alcohol/Substance Use Screening 1968 Colonoscopy 07/18/2022 07/18/2019 Colorectal Cancer Screening 07/18/2022 Diabetes: Hemoglobin A1C 01/02/2026 025, 01/19/2025, 06/28/2024, Additional history exists Depression Screening 02/28/2026 02/28/2025, 02/29/20 SDOH Screening 02/28/2026 02/28/2025 Lipid Panel 03/01/2026 03/01/2025, 04/08, 12/15/2022, Additional history exists COVID-19 Vaccine () 03/11/2026 09/11/2025, 07/15/2024, 09/10/2023, Additional history exists Tobacco Screening 03/26/2026 03/26/2025 [...] Aged 60 years or older Completed 07/15/2024 Influenza Vaccine Completed 09/11/2025, , 12/08/2023, Additional history exists HIB Vaccines Aged Out [...] on patient's age to complete this topic Goals Goal Patient Goal Type Associated Problems Recent Progress Patient-Stated? Author Help patients manage their type 2 diabetes Care Plan Help patients manage their type 2 diabetes Kalyn Valdez Patient has chronic kidney disease Care Plan Patient has chronic kidney disease Kalyn Valdez Procedures Procedure Name Priority Date/Time Associated Diagnosis [...] AUTO DIFFERENTIAL Routine 07/23/2025 8:04 AM EDT HEMOGLOBIN A1C Routine 07/02/2025 1:49 PM EDT PROTEIN CREATININE RATIO, URINE Routine 07/02/2025 1:41 PM EDT LIPID PANEL, STANDARD Routine 03/01/2025 [...] NOW Rapid Molecular) (07/27/2025 1:21 PM EDT) [facility] Influenza B Negative Negative, Indeterminate [facility] Swab 07/27/2025 1:21 PM EDT us Kamila Her MD POINT OF CARE TEST EN TER/EDIT ORDERABLES Final Result Performing Organization Address [facility]/ZIP Co de Phone Number [facility] [address] [place] [phone] * Influenza A (ID NOW Rapid Molecular) (07/27/2025 1:21 PM EDT) [facility] Influenza A Negative Negative, Indeterminate [facility] Swab 07/27/2025 1:21 PM EDT us Kamila Her MD POINT OF CARE TEST EN TER/EDIT ORDERABLES Final Result Performing Organization Address [facility]/ZIP Co de Phone Number [facility] [address] [place] [phone] * POCT Rapid COVID Ag (07/27/2025 1:21 PM EDT) Pathologist [facility] Rapid COVID Ag Positive [facility] Swab 07/27/2025 1:21 PM EDT us Kamila Her MD POINT OF CARE TEST EN TER/EDIT ORDERABLES Final Result Performing Organization Address [facility]/ZIP Co de Phone Number [facility] [address] [place] [address] [phone] * (ABNORMAL) COVID-19 ID NOW (MENDOZA) (07/23/2025 8:51 AM EDT) IDNOW SERIAL# [id number] [facility] COVID-19 TEST Positive (A) Negative [facility] COVID-19 NOTE See Note [facility] Comment: Results are for the identification of SARS-CoV2 RNA. TheSARS-CoV2 RNA is generally detectable in respiratory samplesduring the acute phase of infection. Positive results areindicative of the presence of SARS-CoV-2 RNA; clinicalcorrelation with patient history and other diagnosticinformation is necessary to determine patient infectionstatus. Positive results do not rule out bacterial infectionor co- infection with other viruses.Testing facilities within the [facility] and itsterritories are required to [...] GNOSTICS ORDERABLES Final Result Performing Organization Address City/[facility]/ZIP Co de Phone Number [facility] [address] [place] [address] [phone] * High Sensitivity Troponin I (07/23/2025 8:50 AM EDT) [facility] TROPONIN I HIGH SENSITIVITY 4.3 <3.5 - 35.0 ng/L [facility] Comment:The Mendoza high sens itivity Troponin-I results should beused in conjunction with other diagnostic information suchas ECG, clinical observations and information, and patientsymptoms to aid in the diagnosis of [place]. 07/23/2025 8:50 AM EDT 07/23/2025 8:55 AM EDT us Generic External Data Provider LAB BLOOD ORDERAB LES Final Result Performing Organization Address City/[facility]/ZIP Co de Phone Number [facility] [address] [place] [phone] * Lipase (07/23/2025 8:50 AM EDT) [facility] Lipase 9 8 - 78 U/L [facility] 07/23/2025 8:50 AM EDT 07/23/2025 8:55 AM EDT Generic External Data Provider LAB BLOOD ORDERAB LES Final Result Performing Organization Address City/[facility] Co de Phone Number [facility] [address] [place] [phone] * (ABNORMAL) Comprehensive Metabolic Panel (07/23/2025 8:50 AM EDT) [facility] Sodium 141 135 - 145 mmol/L [facility] Potassium 4.0 3.3 - 5.1 mmol/L [facility] Chloride 106 96 - 108 mmol/L [facility] Carbon Dioxide 28 22 - 29 mmol/L [facility] Anion Gap 11(L) 12 - 20 [facility] Urea Nitrogen (BUN) 14 9 - 16 mg/dL [facility] Creatinine, Serum 1.39 0.5 - 1.4 mg/dL [facility] Creatinine Clr Calc Pharmacy 54.2 [facility] Comment:eGFR (calculated fro m the MDRD study equation) and eCrCl(calculated from the Cockcroft-Gault equation) are based ondifferent parameters and may not yield comparable results.If eCrCl result is absurd, please check patient'sheight/weight. Estimated Glomerular Filt Rate 51 [facility] Comment:Chronic Kidney Disea se: Estimated GFR < 60 mL/min/[id number] Kidney Disease: Estimated GFR < 15 mL/min/1.73m2 Glucose 79 60 - 115 mg/dL [facility] Calcium 8.4 8.4 - 10.2 mg/dL [facility] Bilirubin, Total 1.1(H) 0.0 - 1.0 mg/dL [facility] Aspartate Amino Transferase 38(H) 5 - 37 U/L [facility] Alanine Aminotransferase 38 0 - 40 U/L [facility] Total Protein 6.0(L) 6.5 - 8.0 g/dL [facility] Albumin Level 3.5 3.5 - 5.0 g/dL [facility] Alkaline Phosphatase 121(H) 39 - 117 U/L [facility] 07/23/2025 8:50 AM EDT 07/23/2025 8:55 AM EDT us Generic External Data Provider LAB BLOOD ORDERAB LES Final Result [facility] [address] [place] [phone] * (ABNORMAL) CBC auto differential (07/23/2025 8:04 AM EDT) White Blood Count 5.0 4.8 - 10.8 X10*3/uL [facility] Red Blood Count 3.73(L) 4.60 - 5.80 X10*6/uL [facility] Hemoglobin 11.5(L) 14.0 - 18.0 g/dl [facility] Hematocrit 35.6(L) 42.0 - 52.0 % [facility] Mean Corpuscular Volume 95.4 80.0 - 98.0 fL [facility] Mean Corpuscular Hemoglobin 30.8 27.0 - 33.0 pg [facility] Mean Corpuscular HGB Conc 32.3 31.0 - 36.0 g/dl [facility] Red Cell Distribution Width 11.9 11.0 - 16.0 % [facility] Platelet Count 180 160 - 400 X10*3/uL [facility] Mean Platelet Volume 11.6 9.4 - 12.4 fL [facility] Neutrophils Percent Auto 70.4 45 - 73 % [facility] Imm Gran Pct Auto 0.4 0.0 - 0.4 % [facility] Lymphocytes Percent Auto 17.3(L) 20 - 40 % [facility] Monocytes Percent Auto 9.3 2 - 11 % [facility] Eosinophils Percent Auto 2.2 0 - 4 % [facility] Basophils Percent Auto 0.4 0 - 2 % [facility] NRBC Pct Auto 0.4(H) 0.0 - 0.2 /100WBC [facility] Neutrophils Absolute Auto 3.5 2.0 - 8.3 x10*3/uL [facility] Imm Gran Abs Auto 0.02 0.00 - 0.03 X10*3/uL [facility] Lymphocytes Absolute Auto 0.9(L) 1.2 - 4.9 X10*3/uL [facility] Monocytes Absolute Auto 0.5 0.1 - 1.2 X10*3/uL [facility] Eosinophils Absolute Auto 0.1 0.0 - 0.4 X10*3/uL [facility] Basophils Absolute Auto 0.0 0.0 - 0.2 X10*3/uL [facility] NRBC Abs Auto 0.020(H) 0.0 - 0.012 X10*3/uL [facility] 07/23/2025 8:04 AM EDT 07/23/2025 8:07 AM EDT us Generic External Data Provider LAB BLOOD ORDERAB LES Edited Result - Final [facility] [address] [place] [phone] * Hemoglobin A1c (07/02/2025 1:49 PM EDT) Hemoglobin A1c 5.1 <6.0 % [facility] Comment:Hemoglobin A1C Refer ence Range Adults: 4.8 - 6.0 % Non diabetic: < 6.0 % Goal: < 7.0 %Additional Action Suggested: > 8.0 %Note: Hemoglobin A1c results are invalid for patients with abnormal amounts of HbF. Blood transfusions may impact the HbA1c concentration in the patient sample. Estimated Average Glucose 100 mg/dL [facility] Comment:eAG = Estimated ave rage glucose which is %A1C expressed asaverage glucose, using the formula of the G1P-AhozirsSfcueeg Glucose study (ADAG), Diabetes Care, Vol.31,#8,2007 07/02/2025 1:49 PM EDT 07/02/2025 1:49 PM EDT us Generic External Data Provider LAB BLOOD ORDERAB LES Final Result Performing Organization Address [facility] de Phone Number [facility] [address] [place] [phone] * (ABNORMAL) Protein Creatinine Ratio, Urine (07/02/2025 1:41 PM EDT) Creatinine, Urine 259.64 mg/dL [facility] Protein, Total, Random Urine 23(H) <12 mg/dL [facility] Protein/Creati nine Ratio, Ur 0.09 <0.2 [facility] Comment:The spot urine prote in:creatinine ratio may increase to 0.3during normal . 07/02/2025 1:41 PM EDT 07/02/2025 2:19 PM EDT us Generic External Data Provider LAB URINE ORDERAB LES Final Result Performing Organization Address [facility] Co de Phone Number [facility] [address] [place] [phone] [phone] * Lipid Panel, Standard (03/01/2025 2:50 PM EDT) Triglycerides 57 <150 mg/dL [facility] Comment:Desirable Triglyceri de: less than 150 mg/dLBorderline High Triglyceride 150-199 mg/dLHigh Triglyceride: 200-499 mg/dLVery High Triglyceride: greater than or equal to 5OO mg/dL Cholesterol 177 <200 mg/dL [facility] Comment:Desirable Cholestero l: less than 200 mg/dLBorderline High Cholesterol: 200-239 mg/dLHigh Cholesterol: greater than 239 mg/dL LDL Cholesterol Calculated 94 <100 mg/dL [facility] Comment:Desirable LDL: less than 100 mg/dLNear Optimal/Above Optimal LDL: 110- 129 mg/dLBorderline High LDL: 130-159 mg/dLHigh LDL: 160-189 mg/dLVery High LDL: greater than or equal to 190 mg/dL HDL Cholesterol 72 >40 mg/dL [facility] Comment:Desirable HDL: great er than 40 mg/dL Note: This HDL assay may give artificially low results in patients with liver disease. Blood Venous blood specimen / Unknown 03/01/2025 2:50 PM EDT 03/01/2025 3:55 PM EDT [facility] LAB BLOOD ORDERABLES Edited R esult - Final [facility] [address] [place] [phone] * Hepatitis C Antibody with Reflex to HCV, RNA, Quantitative, Real-Time PCR (12/15/2022 9:44 AM EST) Hepatitis C Antibody NON-REACT SIDDHARTH NON-REACT SIDDHARTH [place] [employer] Index <0.02 <1.00 [place] [employer] Comment: HCV antibody was non-reactive. There is no laboratory evidence of HCV infection. In most cases, no further action is required. However, if recent HCV exposure is suspected, a test for HCV RNA (test code 27316) is suggested. For additional information please refer to http://education.[employer]/faq/NZI16p3 (This link is being provided for informational/ educational purposes only.) Blood Venous blood specimen / Unknown 12/15/2022 9:44 AM EST 12/15/2022 9:45 AM EST Narrative [facility] - 12/16/2022 2:26 PM EST FASTING:UNKNOWN FASTING: UNKNOWN [facility] LITHOGRAPHIC PROOFER APPRENTICE LAB BLOOD ORDERABLES Final Re sult [employer] [address] [facility], [place] [address] [facility] [address], ([address]) [place] [address] * Hm Colonoscopy (07/18/2019 7:44 AM EDT) Historical Provider MD HEALTH MAINTENANCE Final Result from Last 3 Months or Most Recently Relevant to Health Maintenance Additional Health Concerns Active Problems Noted Date Diagnosed Date Help patients manage their type 2 diabetes 10/12 Patient has chronic kidney disease 10/12/2025 Insurance [facility] OPT[employer] (O D-SNP) JUAN ASHBY [id number] Care Teams Assistant Store Manager Relationship Specialty Start Date End Date [place]a FNP [address] [place] [phone] PCP - General Family Medicine 10/27/22
--- OUTSIDE RECORDS SUMMARY | 2025-10-12 13:25 | XMS_ITS | Clinical Summary ---
Author Organization [employer] [place] [facility] ity Address [address] [place] [address] Care Team Providers Care Mental Health Consultant Name Role Phone Unavailable Primary Care [...] Depression Screening 11/08/2024 COVID-19 Vaccine (1 - 2024-2 6 season) 2025 Influenza Vaccine (#1) 2025 RSV [...]
--- OUTSIDE RECORDS SUMMARY | 2025-10-12 13:25 | XMS_ITS | Encounter Summary ---
Author Organization [employer] Address [address] [place] [address] [address] [place] [address] Care Team Providers Care Family Consumer Scientist Name Role Phone Cathryn Krysta [facility] Primary Care Provider [phone] Encounter Details Date Type Department Care Team (Late st Contact Info) Description 11/18/2022 Orders Only [facility] [address] [place] [address] Amanda Haynes LPN Social History Tobacco Use [...] Description 10/22/2025 10:30 AM EST Office Visit [facility] [address] [place] [address] Krysta Lockett [facility] [address] [place] [address] 01/03/2026 10:00 AM EST Office Visit [facility] [address] [place] [address] Eduarda Perez, OD [address] [place] [address] documented as of this encounter Visit Diagnoses Not on filedocumented in this encounter Care Teams Family Consumer Scientist Relationship Specialty Start Date End Date Krysta Lockett FNP [address] [place] [address] PCP - General Family Medicine 10/27/22 documented as of this encounter
--- OUTSIDE RECORDS SUMMARY | 2025-10-12 13:25 | XMS_ITS | Encounter Summary ---
Author Organization [employer] Address [address] [facility] [address] [place] [address] Care Team Providers Care Technical Asst Name Role Phone Krysta Lockett [employer] Primary Care Provider [phone] Reason for Visit * Reason Comments Med Refill Encounter Details Date Type Department Care Team (Late st Contact Info) Description 11/24/2022 Refill [facility] [address] [place], [place] [phone] Chey Multani MD [address] [place] [address] Social History Tobacco Use Types Packs/Day Years [...] rx for persistent orthostatic hypotension. T/C to [facility] pharmacy. Zeinab states that pt has been getting med boxes regularly and is due for med box delivery tomorrow. documented in this encounter Plan of Treatment Upcoming Encounters Date Type Department Care Team (Late Contact Info) Description 10/22/2025 10:30 AM EST Office Visit [facility] [address] [place] [address] Krysta Lockett FNP [address] [place] [address] 01/03/2026 10:00 AM EST Office Visit [facility] OPT[facility] [address] [place] [address] Eduarda Perez OD [address] [place] [address] documented as of this encounter Visit Diagnoses Not on filedocumented in this encounter Care Teams Technical Asst Relationship Specialty Start Date End Date Krysta Lockett FNP [address] [place] [phone] PCP - General Family Medicine 10/27/22 documented as of this encounter
--- OUTSIDE RECORDS SUMMARY | 2025-10-12 13:26 | XMS_ITS | Encounter Summary ---
Author Organization [employer] Address [address] [facility] 7t [place] [address] Care Team Providers Care Marketing And Development Coordinator Name Role Phone Krysta Lockett WAREDRESSER Primary Care Provider [phone] Reason for Referral * Consultation (Routine) - Authorized Specialty Diagnoses / Procedures Referred By Contreras donald Referred To Contact Pharmacy Diagnoses Type 2 diabetes mellitus (HCC) Argentina Huynh MD [address] [place] [address] Phone: tel: fax: Referral ID Status Reason Start Date Expiration Date Visits Requested Visits Authorized [id number] Authorized Continuity of Care 07/30/2025 07/30/2026 6 6 Encounter Details Date Type Department Care Team (Late st Contact Info) Description 07/30/2025 Orders Only [facility] MEDICINE [address] [place] [address] [phone] Argentina Huynh MD [address] [place], [place] [phone] Type 2 diabetes mellitus (CMS/HCC) (Primary Dx) [...] Description 10/22/2025 10:30 AM EST Office Visit [facility] MEDICINE 230 [place] [address] [facility] 230 [place] [address] 01/03/2026 10:00 AM EST Office Visit [facility] OPTOMETRY [address] [place] [address] Eduarda Perez, OD [address] [place] [address] Scheduled Referrals Name Type Priority Associated Diagnoses Orde r Schedule Referral to Pharmacy MT Outpatient Referral Routine Type 2 diabetes mellitus (CMS/HCC) Ordered: 07/30/2025 documented as of this encounter Visit Diagnoses Diagnosis Type 2 diabetes mellitus (HCC)- Primary documented in this encounter Additional Health Concerns Assessment Noted Time PHQ-9 Depression Total Score: 6 02/29/20 25 11:37 AM EDT documented as of this encounter Care Teams Marketing And Development Coordinator Relationship Specialty Start Date End Date Krysta Lockett FNP [address] [place] [phone] PCP - General Family Medicine 10/27/22 documented as of this encounter
--- OUTSIDE RECORDS SUMMARY | 2025-10-12 13:26 | XMS_ITS | Encounter Summary ---
Author Organization [employer] Address 75 [facility] 7t [place] [address] Care Team Providers Care Insecticide Expert Name Role Phone Krysta Lockett GYM ATTENDANT Primary Care Provider [phone] Encounter Details Date Type Department Care Team (Late st Contact Info) Description 09/24/[address] [facility] MEDICINE 230 [place], [place] [phone] Richa Rehman Social History Tobacco Use Types [...] Description 10/22/2025 10:30 AM EST Office [facility] MEDICINE 230 [place] [address] Krysta Lockett FNP 230 [place] [address] 01/03/2026 10:00 AM EST Office Visit [facility] OPTOMETRY [address] [place] [address] Tarka, Eduarda, OD [address] [place] [address] documented as of this encounter Visit Diagnoses Not on filedocumented in this encounter Additional Health Concerns Assessment Noted Time PHQ-9 Depression Total Score: 0 12/21/19 23 10:22 AM EST documented as of this encounter Care Teams Insecticide Expert Relationship Specialty Start Date End Date Krysta Lockett FNP [address] [place] [address] PCP - General Family Medicine 10/27/22 documented as of this encounter
--- OUTSIDE RECORDS SUMMARY | 2025-10-12 13:26 | XMS_ITS | Encounter Summary ---
Author Organization [employer] Address 75 [facility] 7t [place] [address] Care Team Providers Care Retail Office Manager Name Role Phone [place] [facility] Primary Care Provider [phone] Reason for Visit * Reason Comments Pre-visit Planning SDOH screening compl eted on 02/28/2025 Encounter Details Date Type Department Care Team ([facility] st Contact Info) Description 10/12/2025 Patient Outreach [facility] MEDICINE [address] [place], [place] [phone] [facility] [address] [place] [address] Pre-visit Planning (SDOH screening completed on 02/28/2025) [...] encounter Progress Notes * Kalyn Vegas - 10/12/2025 9:47 AM EST OLYA Mccain. Placed outbound call to patient to complete pre-visit planning. No answer at this time. Patient name and were not confirmed. CC left voicemail requesting return call. Direct contact information provided. documented in this encounter Plan of Treatment Upcoming Encounters Date Type Department Care Team ([facility] st Contact Info) Description 10/22/2025 10:30 AM EST Office Visit [facility] MEDICINE [address] [place] [address] [facility] [address] [place] [address] 01/03/2026 10:00 AM EST Office Visit [facility] OPTOMETRY [address] [place] [address] Eduarda Perez, OD 267 [place] [address] documented as of this encounter Goals Goal Patient Goal Type Associated Problems Recent Progress Patient-Stated? Author Help patients manage their type 2 diabetes Care Plan Help patients manage their type 2 diabetes Kalyn Valdez Patient has chronic kidney disease Care Plan Patient has chronic kidney disease No Kalyn Vegas documented as of this encounter Visit Diagnoses Not on filedocumented in this encounter Additional Health Concerns Active Problems Noted Date Diagnosed Date Help patients manage their type 2 diabetes 10/12 Patient has chronic kidney disease 10/12/2025 Assessment Noted Time PHQ-9 Depression Total Score: 6 02/29/20 25 11:37 AM EDT documented as of this encounter Care Teams Retail Office Manager Relationship Specialty Start Date End Date Krysta Lockett FNP [address] [place] [address] PCP - General Family Medicine 10/27/22 documented as of this encounter
--- OUTSIDE RECORDS SUMMARY | 2025-10-12 13:26 | XMS_ITS | Encounter Summary ---
Author Organization [employer] Address 75 [facility] 7t [place] [address] Care Team Providers Care Cloud Administrator Name Role Phone [place] [facility] Primary Care Provider [phone] Reason for Visit * Reason Comments Med Refill Encounter Details Date Type Department Care Team ([facility] st Contact Info) Description 11/01/2023 Refill [facility] MEDICINE [address] [place], [place] [phone] [facility] 230 [place] [address] Dyspepsia Social History Tobacco Use Types Packs/Day [...] Description 10/22/2025 10:30 AM EST Office Visit [facility] MEDICINE [address] [place] [address] Krysta Lockett FNP [address] [place] [address] 01/03/2026 10:00 AM EST Office Visit [facility] OPTOMETRY [address] [place] [address] Tarka, Eduarda, OD [address] [place] [address] documented as of this encounter Visit Diagnoses Diagnosis Dyspepsia Dyspepsia and other specified disorders of function of stomach documented in this encounter Additional Health Concerns Assessment Noted Time PHQ-9 Depression Total Score: 0 12/21/19 23 10:22 AM EST documented as of this encounter Care Teams Cloud Administrator Relationship Specialty Start Date End Date Krysta Lockett FNP [address] [place] [address] PCP - General Family Medicine 10/27/22 documented as of this encounter
--- OUTSIDE RECORDS SUMMARY | 2025-10-12 13:26 | XMS_ITS | Encounter Summary ---
Author Organization [employer] Address 75 [facility] 7t [place] [address] Care Team Providers Care Plant Associate Name Role Phone Krysta Lockett FASHION STYLING INTERN Primary Care Provider [phone] Encounter Details Date Type Department Care Team (Late st Contact Info) Description 02/16/2024 Orders Only [facility] MEDICINE [address] [place], [place] [phone] Provider, MD Larissa Social History Tobacco Use [...] Description 10/22/2025 10:30 AM EST Office Visit [facility] MEDICINE [address] [place], [place] [phone] [place], [place], FASHION STYLING INTERN 230 [place], [place] [phone] 01/03/2026 10:00 AM EST Office Visit [facility] OPTOMETRY [address] [place], [place] [phone] TarkaEduarda, OD [address] [place], [place] [phone] documented as of this encounter Procedures Procedure Name Priority Date/Time Associated Diagnosis Comments US RENAL BI Routine 03/08/2024 12:37 PM EDT COLONOSCOPY Routine 07/18/2019 7:44 AM EDT documented in this encounter Results * US RENAL BI (03/08/2024 12:37 PM EDT) Anatomical Region Laterality Modality Abdomen Ultrasound 03/08/2024 12:3 7 PM EDT Narrative 03/10/2024 10:07 AM EDT [address] [address] Ultrasound Report Signed Patient: Armando Ba MR#: [id number] : 1955 Acct:[id number] Age/Sex: 68 / M ADM Date: 03/08/24 Loc: HO.US Attending Dr: Bladimir Le MD Ordering Physician: Bladimir Le MD Date of Service: 03/08/24 Procedure(s): US renal BI Accession Number(s): [id number] cc: Bladimir Le MD; [facility] EXAMINATION: US RETROPERITONEAL LIMITED (RENAL ONLY) [...] in OV> 03/10/24 1004 DD/ 1237 TD/TT: Retail Merchandiser Technician: ELAINE Procedure Note Donotuseinterpreter, Image - 03/10/2024 [place] [address] Ultrasound Report Signed Patient: Armando BaMR#: [id number] : 6Acct:[id number] Age/Sex: 68 / MADM Date: 03/08/24 Loc: HO.US Attending Dr: Bladimir Le MD Ordering Physician: Bladimir Le MD Date of Service: 03/08/24 Procedure(s): US renal BI Accession Number(s): [id number] cc: Bladimir Le MD; [facility] EXAMINATION: US RETROPERITONEAL LIMITED (RENAL ONLY) [...] in OV> 03/10/24 1004 DD/ 1237 TD/TT: Retail Merchandiser Technician: ELAINE [facility] External Provider IMG US PROCEDURES Final Result * Hm Colonoscopy (07/18/2019 7:44 AM EDT) Historical Provider HEALTH MAINTENANCE Final Result documented in this encounter Visit Diagnoses Not on filedocumented in this encounter Additional Health Concerns Assessment Noted Time PHQ-9 Depression Total Score: 0 12/08/19 24 10:42 AM EST documented as of this encounter Care Teams Plant Associate Relationship Specialty Start Date End Date [place] FNP [address] [place] [address] PCP - General Family Medicine 10/27/22 documented as of this encounter
--- OUTSIDE RECORDS SUMMARY | 2025-10-12 13:26 | XMS_ITS | Encounter Summary ---
Author Organization [employer] Address [address] [place] [address] 7t [place] [address] Care Team Providers Care Playground Director Name Role Phone Roberto Carlos Coleman MD Primary Care Provider [facility] Primary Care Provider [phone] Encounter Details Date Type Department Care Team (Latest Contact Info) Description 12/01/2019 Abstract [facility] CONVERSIONS Dental, Provider, DDS Social History [...] Description 10/22/2025 10:30 AM EST Office Visit [facility] MEDICINE [address] [place] [address] [facility] 230 [place] [address] 01/03/2026 10:00 AM EST Office Visit [facility] OPTOMETRY [address] [place], [place] [phone] Eduarda Perez OD [address] [place] [address] documented as of this encounter Visit Diagnoses Not on filedocumented in this encounter Care Teams Playground Director Relationship Specialty Start Date End Date Roberto Carlos Coleman MD PCP - General Family Medicine 6/12/20 12/19/22 [place] 230 [place] [address] PCP - General Family Medicine 10/27/22 documented as of this encounter
--- OUTSIDE RECORDS SUMMARY | 2025-10-12 13:26 | XMS_ITS | Encounter Summary ---
Author Organization [employer] Address 75 [facility] 7t [place] [address] Care Team Providers Care Motor Vehicle Examiner Name Role Phone [place] [facility] Primary Care Provider [phone] Encounter Details Date Type Department Care Team (Late st Contact Info) Description 07/19/2024 Orders Only [facility] [address] [place], [place] [phone] [facility] 230 [place] [address] Social History Tobacco Use Types Packs/Day Years [...] Description 10/22/2025 10:30 AM EST Office Visit [facility] MEDICINE [address] [place] [address] Krysta Lockett FNP [address] [place] [address] 01/03/2026 10:00 AM EST Office Visit [facility] OPTOMETRY [address] [place] [address] Tarka, Deuarda, OD [address] [place] [address] documented as of this encounter Visit Diagnoses Not on filedocumented in this encounter Additional Health Concerns Assessment Noted Time PHQ-9 Depression Total Score: 0 12/08/19 24 10:42 AM EST documented as of this encounter Care Teams Motor Vehicle Examiner Relationship Specialty Start Date End Date Krysta Lockett FNP [address] [place] [address] PCP - General Family Medicine 10/27/22 documented as of this encounter
--- OUTSIDE RECORDS SUMMARY | 2025-10-12 13:26 | XMS_ITS | Encounter Summary ---
Author Organization [facility] [employer] Address [address] [facility] 7t [place] [address] Care Team Providers Care B2B Outside Sales Representative Name Role Phone [place] [facility] Primary Care Provider [phone] Encounter Details Date Type Department Care Team (Late st Contact Info) Description 09/01/2023 Abstract [facility] MEDICINE [address] [place], [place] [phone] [place] [facility] 230 [place] [address] Social History Tobacco Use Types Packs/Day Years [...] Description 10/22/2025 10:30 AM EST Office Visit [facility] MEDICINE [address] [place] [address] Krysta Lockett FNP [address] [place] [address] 01/03/2026 10:00 AM EST Office Visit [facility] OPTOMETRY [address] [place] [address] TarEduarda haddad, OD [address] [place] [address] documented as of this encounter Visit Diagnoses Not on filedocumented in this encounter Additional Health Concerns Assessment Noted Time PHQ-9 Depression Total Score: 0 12/21/19 23 10:22 AM EST documented as of this encounter Care Teams B2B Outside Sales Representative Relationship Specialty Start Date End Date Krysta Lockett FNP [address] [place] [address] PCP - General Family Medicine 10/27/22 documented as of this encounter
== END 2025-10-12 11:11 | disposition home or self-care (01) ==
LOC: HO.HKA 10:54
PROVIDERS: PCP Registered Nurse; Visit Provider Internal Medicine Nephrology
DX: I10 Essential (primary) hypertension (principal); N18.31 Chronic kidney disease, stage 3a
CPT/HCPCS: 99214

== ENCOUNTER → 2025-10-12 10:54 | Outpatient (BNVA) | payer OTHER, SELFPAY | PROVIDERS: PCP Registered Nurse; Visit Provider Internal Medicine Nephrology | DX: I12.9 Hypertensive chronic kidney disease with stage 1 through stage 4 chronic kidney disease, or unspecified chronic kidney disease (principal); E11.22 Type 2 diabetes mellitus with diabetic chronic kidney disease; N18.31 Chronic kidney disease, stage 3a; Z87.891 Personal history of nicotine dependence; Z79.84 Long term (current) use of oral hypoglycemic drugs; Z79.4 Long term (current) use of insulin | CPT/HCPCS: 99212 ==